=== PATIENT | female | born 1940 | race Caucasian/White ===

== ENCOUNTER → 2017-10-10 10:03 | Outpatient (CLI) | payer MEDICARE, OTHER, SELFPAY ==
--- NOTE | 2017-10-10 11:30 | FLU_PTH ---
PATIENT: PHANI PIERRE LOC: [facility] U#:[id number] AGE/SX: 84/F ROOM: RE10/10/[address]: Dr. Felice Cuevas MD : 1940 BED: DIS: SPEC #: [id number] RECD: 10/11/17 09:29 STATUS: VAIBHAV GISELLA #: [id number] LOBO: 10/10/17 11:[address]: Felice Cuevas DEPT: CYTOLOGY RECD BY: Lazara Sauceda Tissues: Urine Procedures: Pap Stain (control) Special Stain Group II Cytospin Fluid HEADER OPERATION: Not noted PRE-OP DIAGNOSIS: Hematuria TISSUE SUBMITTED: Urine for cytology DIAGNOSIS CYTOLOGY Urine for cytology (cytospin): Negative for malignant cells. SJ:michelle 10/12/17 CYTOLOGY STUDY Slides are reviewed. The specimen consists of benign squamous cells, urothelial cells, inflammatory cells and organisms consistent with bacteria. CYTOLOGY GROSS Received is 65 ml of clear yellow fluid labeled with the patient's name and and designated per the requisition as urine. Submitted for cytology preparation. / RB:marco 10/11/17 TC:5 [facility]: [id number]
== END ==
PROVIDERS: Family Provider Family Medicine; PCP Family Medicine; Visit Provider Urology
DX: R31.9 Hematuria, unspecified (principal)
CPT/HCPCS: 88108; 88305; 88313

== ENCOUNTER → 2017-10-19 13:57 | Outpatient (CLI) | payer MEDICARE, OTHER, SELFPAY ==
--- NOTE | 2017-10-19 14:00 | CT_ITS ---
STUDY: CT ABDOMEN AND PELVIS WITH CONTRAST REASON FOR EXAM: Female, 76 years old. HEMATURIA, LT FLANK PAIN/HX KS, OVARIAN CYST RADIATION DOSAGE (If Supplied By Facility): CTDIvol = ( 8.90 ) mGy, DLP = ( 629.36 ) mGycm TECHNIQUE: Transaxial images were obtained from the dome of the diaphragm to the symphysis pubis without oral contrast. 100 ml of Isovue 300 contrast was administered. Sagittal and coronal images were reconstructed. Individualized dose optimization techniques were used for this CT. COMPARISON: None. FINDINGS: There are atherosclerotic calcifications of visualized coronary arteries. The visualized portions of the heart are within normal limits. Normal liver. Normal gallbladder and extrahepatic biliary system. Normal spleen. Normal pancreas. Normal bilateral adrenal glands. There are bilateral peripelvic cysts. Non obstructive 4.7 mm inferior left renal parenchymal stones. Mild left hydronephrosis. Obstructing stone is not visualized. There is diffuse enhancement of the left proximal ureter. Solid area of enhancement visualized in the proximal left ureter. This area measures 4.3 mm. This may represent a partially obstructing lesion. Transitional cell carcinoma needs to be excluded. Normal visualized stomach. Normal small intestine. Normal colon. The appendix is visualized and appears normal. There are calcifications of the abdominal aorta and vascular structures. This is consistent for atherosclerotic disease. There is no abdominal aortic aneurysm. Normal inferior vena cava. Subcentimeter mesenteric lymph nodes. Normal urinary bladder. The uterus is lobulated in contour. There are multiple partially calcified masses in the uterus. This is consistent for a fibroid/ myomatous uterus. Normal abdominal wall. There are degenerative changes of the osseous structures. Degenerative findings of the symphysis pubis. CT/Abdomen/Pelvis W IV Cont ONLY IMPRESSION: Mild left hydronephrosis. Obstructing stone is not visualized. There is diffuse enhancement of the left proximal ureter. Solid area of enhancement visualized in the proximal left ureter. This area measures 4.3 mm. This may represent a partially obstructing lesion. Transitional cell carcinoma needs to be excluded. Non obstructive 4.7 mm inferior left renal parenchymal stones. Other findings as above. Electronically Signed: Main Hou MD at 20:14 EDT , Service support ,
[2017-10-19 14:11] LABS: CREATININE FINGERSTICK < 0.6 mg/dL (0.55-1.02); EGFR FINGERSTICK > 60.0000 mL/min (>60)
== END ==
PROVIDERS: PCP Family Medicine; Visit Provider Urology
DX: R31.9 Hematuria, unspecified (principal)
CPT/HCPCS: 74177; Q9967

== ENCOUNTER 2017-11-02 13:01 | Day surgery (SDC) | payer MEDICARE, OTHER, SELFPAY ==
[2017-11-02 13:25] VITALS: BP 159/66; PULSE 63; RESP 14; TEMP 36.2; O2SAT 100; BMI 22.0
--- NOTE | 2017-11-02 14:07 | PCM.DC.URO ---
Discharge Diet: Light diet - advance as tolerated Discharge Activity: May not drive while taking narcotic pain medications. Return to work on:: 11/07/17 Call your doctor if you observe: Fever of 101 or Higher, Uncontrolled pain Suture Line Care: Avoid Pulling/Pushing, Avoid Pinching/Bending Allergies/Adverse Reactions: Allergies Penicillins [PCN] Allergy (Verified 10/27/17 10:06) Rash atorvastatin [From Lipitor] Adverse Reaction (Verified 10/27/17 10:07) Other LEG WEAKNESS clindamycin Adverse Reaction (Verified 10/27/17 10:07) Diarrhea ibuprofen Adverse Reaction (Verified 10/27/17 10:07) Diarrhea Medications to take at Discharge Aspirin E.C. [Ecotrin] 81 mg PO DAILY@0800 10/27/17 Atenolol [Tenormin (Beta Renetta)] 50 mg PO DAILY 10/27/17 Pravastatin [Pravachol] 40 mg PO QHS 10/27/17 Ciprofloxacin [Cipro] 500 mg PO BID #6 tab 11/02/17 Hydrocodone Bitart/Apap 5-325 [[place] 5MG-325MG] 1 tab PO Q4H PRN PRN 5 Days #14 tab 11/02/17 The following prescriptions were given: Hydrocodone Bitart/Apap 5-325 [[place] 5MG-325MG] 1 tab PO Q4H PRN PRN 5 Days #14 tab PRN Reason: Pain Ciprofloxacin [Cipro] 500 mg PO BID #6 tab Primary Care Physician: Pérez Eddy MD [Primary Care Provider] - Please Follow Up With: Felice Cuevas MD When: TuesdayNovember 14 at 1:30 pm
[2017-11-02] MEDS: Cefazolin 2 GM in 0.9% Normal Saline 100 ML IV (14:13)
--- NOTE | 2017-11-02 15:02 | PCM.OPRPT ---
Report of Operation Date of Procedure: 11/02/17 Pre-Operative Diagnosis: preoperative diagnosis is gross hematuria, question of a thickened Left ureter and mass in the ureter on CAT scan, lower pole left kidney stone. Post-Operative Diagnosis: Same Surgery/Procedure Performed:: Cystoscopy, left retrograde pyelogram, left ureteroscopy. Description of Surgical Findings:: 76-year-old female who had an episode of gross hematuria cystoscopy in the office was negative, we did a CAT scan which demonstrated some thickening in the ureter inflammation in the left kidney small stone in the lower pole of the left kidney today we plan to do ureteroscopy possible laser the stone possible stent placement possible biopsy if there is any abnormalities. Patient was taken back to the operating room at the smooth induction of general anesthesia she was placed in dorsal lithotomy position. The urethra and vaginal area were prepped and draped in usual sterile fashion on bimanual exam I could not appreciate any masses or abnormalities, and cystoscopy showed a normal bladder with no tumors or stones right and left ureteral orifice normal position, I then cannulated the left ureteral orifice performed a left retrograde pyelogram which is normal, I then placed 2 Glidewire of the left ureter and went up the left ureter with the flexible ureteroscope the entire length of the ureter was clean of any stones tumors or abnormalities the UPJ was normal I inspected the kidney upper pole midpole and lower pole the kidney on CAT scan there was a possible stone in the lower pole the kidney but it was too difficult to reach with ureteroscopy and was in the calyx that was unreachable and therefore felt like treatment the stone was not necessary in a very lower pole stone. I worked down the ureter with the ureteroscope and no tumors or stones or adenopathies were seen along the course of the ureter came out of the ureter and then decided not to leave a stent drain the kidney and the patient's anesthetic is being reversed and I will talk to her . Type of Anesthesia:: General Drains: none - Admit VTE Documentation VTE Present on Admission: No VTE Mechan Device Prophylaxis: SCD's VTE Pharm Prophylaxis ordered?: No Reason prophylaxis not ordered:: Treatment Not Indicated
[2017-11-02 15:07] VITALS: BP 131/73; BP 159/66; PULSE 71; RESP 16; TEMP 36.4; O2SAT 94
[2017-11-02 15:15] VITALS: BP 148/68; BP 159/66; PULSE 72; RESP 16; O2SAT 100
[2017-11-02 15:30] VITALS: BP 149/68; BP 159/66; PULSE 66; RESP 16; O2SAT 93
[2017-11-02 15:35] VITALS: BP 152/69; BP 159/66; PULSE 74; RESP 16; TEMP 36.1; O2SAT 93
[2017-11-02 16:14] VITALS: BP 159/66
== END 2017-11-02 16:20 | disposition home or self-care (01) ==
LOC: SDC 13:02 → AC 13:03
PROVIDERS: PCP Family Medicine; Visit Provider Urology
PROC: (CPT 52332; principal; 2017-11-02 14:55)
DX: N20.2 Calculus of kidney with calculus of ureter (principal); R31.0 Gross hematuria; E78.00 Pure hypercholesterolemia, unspecified; I10 Essential (primary) hypertension; Z79.899 Other long term (current) drug therapy; Z79.82 Long term (current) use of aspirin
CPT/HCPCS: 00910; 52005; 76000; C1769; J2405

== ENCOUNTER → 2017-11-21 16:04 | Outpatient (CLI) | payer MEDICARE, OTHER, SELFPAY ==
--- NOTE | 2017-11-21 | EMB_PTH ---
PATIENT: PHANI PIERRE LOC: [facility] U#:[id number] AGE/SX: 84/F ROOM: RE11/21/[address]: Dr. Sathish Chan MD : 1940 BED: DIS: SPEC #: [id number] RECD: 11/21/17 17:49 STATUS: VAIBHAV VUBhavna #: [id number] LOBO: 11/21/17 00:[address]: Sathish Chan DEPT: SURGICAL PATHOLOGY RECD BY: Tripp Osuna Tissues: A - Endometrium, NOS B - Endocervical Procedures: Surgery Specimen Level IV HEADER OPERATION: Endometrial biopsy PRE-OP DIAGNOSIS: Postmenopausal bleeding TISSUE SUBMITTED: A - Endometrial biopsy, B - ECC MICROSCOPIC DIAGNOSIS A. Endometrial biopsy: Scant strips of benign endometrial epithelium, consistent with atrophic endometrium. Fragments of benign endocervical epithelium and mucous. B. ECC: Fragments of benign endocervical epithelium, blood and mucous. SJ:michelle 6/13/18 MICROSCOPIC DESCRIPTION Slides are reviewed. GROSS DESCRIPTION A - Received in fixative is one container labeled with the patient's name and designated EM biopsy. The specimen consists of multiple irregular fragments of barrett mucoid tissue that in aggregate measure 2.5 x 0.2 x 0.1 cm. The specimen is totally submitted in one cassette. B - Received in fixative is one container labeled with the patient's name and designated ECC. The specimen consists of multiple fragments of hemorrhagic mucoid tissue that in aggregate measure 1 x 1 x 0.2 cm. The specimen is totally submitted in one cassette. / PATRIZIA:michelle 11/22/17 TC:4 CPT: 33970 x2
--- NOTE | 2017-11-21 16:04 | DT_ITS ---
This patient was seen during an EMR downtime November 14, 2017 - November 21, 2017. This patient may have a combination of paper and electronic documentation or all paper documentation. All documentation is viewable within the e-chart portion of [employer] for each patient visit.
[2017-11-26 14:23] LABS: Cancer Antigen 125 11.6 U/mL (0.0-38.1)
== END ==
PROVIDERS: Visit Provider Obstetrics & Gynecology
DX: N95.0 Postmenopausal bleeding (principal); Z12.4 Encounter for screening for malignant neoplasm of cervix
CPT/HCPCS: 36415; 86304; 88175; 88305; G0145

== ENCOUNTER 2018-01-02 07:20 | Day surgery (SDC) | payer MEDICARE, OTHER, SELFPAY ==
[2017-12-28 15:09] LABS: Hematocrit 39.3 % (37-47); Hemoglobin 12.9 g/dl (12.0-15.0); Mean Corp Hgb Conc 32.8 g/gl (32-36); Mean Corpuscular Hgb 28.9 pg (27.0-32.0); Mean Corpuscular Volume 88.1 fL (81-99); Mean Platelet Vol. 10.9 fl (6.2-12.0); Platelet Count 339 K/mm3 (150-450); RBC Distribution Width CV 12.6 % (11.6-14.6); RBC Distribution Width SD 40.2 fl (35.1-43.9); Red Blood Count 4.46 M/mm3 (4.2-5.4); White Blood Count 10.3 K/mm3 (4.4-11.0)
[2017-12-28 15:11] LABS: Scan Indicated on CBC? Y/N NO
[2017-12-28 15:24] LABS: Partial Thromboplast Time 27.6 Seconds (24.1-36.2); Prothrombin Time (Protime)PT. 13.4 SECONDS (11.7-14.9)
[2017-12-28 15:42] LABS: ALB/GLOB Ratio 0.9 RATIO (0.9-2.4); AST(SGOT) 17 U/L (15-37); Alanine Aminotransfer ALT/SGPT 24 U/L (13-56); Albumin, Serum 3.5 g/dL (3.2-5.0); Alkaline Phosphatase 88 U/L (45-117); Anion Gap 6 (5-15); BUN 15 mg/dL (7-18); BUN/Creat Ratio 20.2 RATIO (10-20); Calcium,Total 9.2 mg/dL (8.5-10.1); Chloride 103 mmol/L (98-107); Creatinine, Serum 0.74 mg/dL (0.55-1.02); EST Glomerular Filtration Rate 81 mL/min (>60); Est Glom Filt Rate - Afr Amer 98 mL/min (>60); Globulin 3.9 g/dL (2.2-4.2); Glucose 114 mg/dL (74-106); Potassium 3.7 mmol/L (3.5-5.1); Protein, Total 7.4 g/dL (6.4-8.2); Sodium Level 139 mmol/L (136-145)
--- NOTE | 2017-12-30 13:14 | EKG12_ITS ---
Test Reason : PRE-OP Blood Pressure : / mmHG Vent. Rate : 065 BPM Atrial Rate : 065 BPM P-R Int : 138 ms QRS Dur : 080 ms QT Int : 370 ms P-R-T Axes : 051 -06 033 degrees QTc Int : 384 ms Normal sinus rhythm Normal ECG When compared with ECG of 26-JUL-2003 10:39, Questionable change in QRS axis Confirmed by JEFFRY CAREY ([id number]), assignment editor ALEYDA SARABIA ([id number]) on 01/03/2018 2:05:52 PM Referred By: Sathish Chan Confirmed By:JEFFRY CAREY
--- NOTE | 2018-01-01 19:55 | HP.PCM_ITS ---
History and Physical Date of Admission: 01/02/18 Surgical History and Physical Dian Domínguez, a 77 year old female 2 0 0 0 2, presents for D and C , H/S, Dx L/S, Bilateral salpingectomy, left oophrectomy on January 02, 2018 at 9: 00. -- COATER HAND Bleeding, Left Ovarian Cyst, Thickened EM -- Pt is a 76 yo female , G-2 P-2 with bleeding after IC which began several months ago. It occurs after IC. It is located in the vagina. Dian characterizes the quality bloody urine for a few days after IC. Severity is mild and not improving; associated signs and symptoms are no other symptoms. Additional comments are: urology w/u negative by Dr. Cuevas; pelvic u/s showed 5 cm left simple cyst and 1 cm EM stripe. MEDICATIONS HISTORY: Patient is also takin. atenolol 50 mg tablet, 1 PO QD 2. pravastatin 40 mg tablet, 1 PO QD 3. PreserVision AREDS 14,320 unit-226 mg-200 unit capsule, 1 PO QD ALLERGIES: Penicillins, Rash, Clindamycin, Intolerance-diarrhea, Lipitor, Muscle weakness, Ibuprofen and Generalized rash Illnesses - hypertension, high cholesterol Accidents - None Review of Systems: GENERAL - Denies fever, or chills SKIN - Denies skin changes EYES - Denies visual changes EARS - Denies difficulty hearing NOSE - Denies nasal congestion or bleeding MOUTH - Denies sore throat or difficulty swallowing NECK - Denies pain or swelling RESPIRATORY - Denies shortness of breath or wheezing CARDIOVASCULAR - Denies palpitations or chest pain GASTROINTESTINAL - Denies nausea, vomiting, diarrhea, constipation GENITOURINARY - Denies dysuria, frequency of urination, incontinence of urine MUSCULOSKELETAL - Denies joint or muscle pain NEUROLOGICAL - Denies localized numbness or weakness PSYCHIATRIC - Denies depression or anxiety ENDOCRINE - Denies heat or cold intolerance, weight loss or gain HEMATO-IMMUNOLOGIC - Denies excesive bleeding with cuts SOCIAL HISTORY: Alcohol Use - denies use Smoking - Never Illicit Drug Use - denies use of street drugs Spouse-Sig Other Name - Kenny FAMILY HISTORY: nc MENSTRUAL HISTORY: menopausal PAST PREGNANCIES: Total Pregnancies - 2; Full Term Pregnancies - 2; Premature - 0; Abortions, Induced - 0; Abortions, Spontaneous - 0; Ectopics - 0; Multiple Births - 0; Living Children - 2 SURGICAL HISTORY: 1. 11/02/2017 cystoscopy PHYSICAL EXAM BP- 120/60 Sitting, Right arm, regular cuff Weight- 121.81703 lbs Height- 62.00 inch BMI:22.21 CONSTITUTIONAL - NAD, well nourished, and well developed SKIN - No rash, lesions, or ulcers HEENT - Normocephalic, PERRLA, EOMI NECK - No nodes, no nuchal rigidity and thyroid normal size and texture LYMPH NODES - Palpation of lymph nodes in neck and groins within normal limits LUNGS - CTA x2 without wheezes, crackles or rales CARDIAC - Regular rate and rhythm without rubs, murmurs, or gallops ABDOMEN - Without hepatosplenomegaly, distention, masses, rebound, or guarding; normal bowel sounds; no hernias EXTREMITIES - No edema or calf tenderness NEUROLOGICAL - Cranial nerves II-XII grossly intact PSYCHIATRIC - A and O to time, place, person, mood and affect DETAILED PELVIC EXAM External Genitial Vagina - non-tender without lesions Urethra/Urethral Meatus - non-tender Bladder - non-tender Vagina - vaginal cool are pink and moist without loss of rugae and no evidence of atropy Cervix - without cervical motion tenderness and has normal size and features without evident lesions and cervix with easy bleeding with brush Uterus - multiparous size 6 cm & wt 75-125 g Adnexa - clear without massess or tenderness ASSESSMENT/PLAN: 1. Nonspecific Abnormal Findings On Radiological And Other Examination Of Genitourinary Organs, Ovarian Cyst Nos and Postmenopausal Bleeding EMBx and CA-125 OK but endometrial stripe thickened. Need to proceed with D and C, H/S. Given this will also perform LST and right salpingectomy. Discussed RBAs and all questions answered.
[2018-01-02] VITALS (7 sets, daily range): BP systolic 136–151; BP diastolic 48–68; PULSE 60–66; RESP 14–16; TEMP 36.1–36.5; O2SAT 93–99; BMI 22.1
--- NOTE | 2018-01-02 09:00 | ECC_PTH ---
PATIENT: PHANI PIERRE LOC: [facility] [place] U#:[id number] AGE/SX: 77/F ROOM: RE01/02/[address]: Dr. Sathish Chan MD : 1940 BED: DIS: 01/02/2018 SPEC #: [id number] RECD: 01/02/18 11:50 STATUS: VAIBHAV GISELLA #: [id number] LOBO: 01/02/18 09:[address]: Sathish Chan DEPT: SURGICAL PATHOLOGY RECD BY: Lazara Sauceda ENTERED: 01/02/18 13:07 SP TYPE: ECC OTHR DR: MD Dr. Pérez Santos MD Tissues: A - Endocervical B - Endometrium, NOS C - Left ovary D - Right ovary Procedures: Surgery Specimen Level IV Surgery Specimen Level V HEADER OPERATION: Hysteroscopy, dilation and curettage, laparoscopy, bilateral salpingo-oophorectomy PRE-OP DIAGNOSIS: Left ovarian cyst, postmenopausal bleeding TISSUE SUBMITTED: A ? Endocervical curettings, B ? Endometrial curettings, C ? Left tube and ovary, D ? Right tube and ovary MICROSCOPIC DIAGNOSIS A. Endocervical curettings: Desquamated benign ecto- and endocervical epithelial cells and mucous, negative for dysplasia. B. Endometrial curettings: Strips and superficial fragments of benign endometrial tissue consistent with atrophic endometrium. Fragments of benign endometrial polyp with simple cystic hyperplasia without atypia. C. Left fallopian tube and ovary, salpingo-oophorectomy: Simple serous cyst adenoma (7 cm in greatest dimension). Mesothelial inclusion cysts. D. Right fallopian tube and ovary, salpingo-oophorectomy: Simple serous cyst adenoma (1 cm in greatest dimension). Mesothelial inclusion cysts. SJ:michelle 01/03/18 MICROSCOPIC DESCRIPTION Slides are reviewed. GROSS DESCRIPTION A - Received in fixative is one container labeled with the patient's name and designated endocervical curettings. The specimen consists of multiple fragments of barrett mucoid tissue that in aggregate measure 0.5 x 0.5 x 0.1 cm. The specimen is totally submitted in one cassette. B - Received in fixative is one container labeled with the patient's name and designated endometrial curettings. The specimen consists of multiple fragments of hemorrhagic soft tissue that in aggregate measure 2.5 x 1 x 0.1 cm. Also present in the container are two pieces of polypoid tissue measuring 0.5 and 1 cm in greatest dimension. Both pieces are bisected. The entire specimen is submitted in two cassettes as follows: 1 ? hemorrhagic soft tissue, 2 ? polypoid tissue. C - Received in fixative is one container labeled with the patient's name and designated left tube and ovary. The specimen consists of a cystic ovary with overlying fallopian tube. The cystic ovary measures 7 x 7 x 4.5 cm. The outer surface of the ovary is smooth. The ovary weighs 85 gm. The outer surface of the ovary is inked black. The cystic ovary contains clear yellow fluid. The cyst wall is smooth. No papillations are identified. The cyst wall measures up to 0.1 cm in thickness. The fallopian tube measures 5.5 cm in length and up to 0.5 cm in diameter. The fimbrial end is identified. Sections reveal unremarkable cut surfaces. No tubo-ovarian adhesions are identified. Holistic Specialist sections are submitted in three cassettes as follows: 1 & 2 ? ovary, 3 ? fallopian tube. D - Received in fixative is one container labeled with the patient's name and designated right tube and ovary. The specimen consists of a fallopian tube and adjacent ovary and detached cyst. The fallopian tube measures 5 cm in length and up to 0.5 cm in diameter. The fimbrial end is identified. Tubo-ovarian adhesions are not seen. The ovary is partially disrupted and measures 2.5 x 1 x 1 cm. Sections reveal two cysts filled with clear fluid. The detached cyst measures 1 x 1 x 0.8 cm. It is filled with clear fluid. Holistic Specialist sections are submitted in three cassettes as follows: 1 ? fallopian tube, 2 ? ovary, 3 ? ovary and detached cyst. The ovary and detached cyst are submitted in entirety. / PATRIZIA:michelle 01/02/18 TC:1 CPT: 08470 x2, 30936 x2
[2018-01-02] MEDS: Ropivacaine 0.5% 30 ML Vial (10:41)
--- NOTE | 2018-01-02 16:52 | PCM.OP.BLANK ---
Operative Report Date of Procedure: 01/02/18 Surgeon: Sathish Chan MD, FACOG Senior Validation Engineer: BRENNON Trimble Anesthesia: Karla Flaherty CRNA Type of anesthesia: General Endotracheal Procedure: Diagnostic Hysteroscopy, fractional dilation and Curettage, Diagnostic Laparoscopy, Bilateral Salpingo-Oophrectomy Pre-op: Postmenopausal Bleeding, Large Left Ovarian Cyst Postop: Postmenopausal Bleeding, Large Left Ovarian Cyst, Endometrial Polyps Versus Fibroids Findings: 5 cm EM cavity with atrophic endometrium and to 0.5 cm fibroids versus polyps; 7-8 cm simple appearing left ovarian cyst, normal fallopian tubes and right ovary, normal upper abdomen, normal-appearing uterus. Cervix which protruded to within 3 cm of the introitus. LAVH or RAVH would likely be possible. Indication: This is a 77 year old patient who has been having problems with postmenopausal bleeding. Ultrasound also revealed a 7 cm left simple appearing cyst. Endometrial biopsy was benign. Given this was decided to proceed with the above surgery. The patient has been counseled regarding the risk and indications of this procedure including the possibility of bleeding, infection, and injury to surrounding structures such as bowel bladder. All questions were answered. Procedure: Patient taken to the operating room where after induction of general anesthesia the patient was prepped and draped in the usual sterile fashion. Bladder was drained of urine with a catheter. Anterior cervix grasped and cervix was dilated to about 5 mm. Hysteroscope was placed and the above findings were noted. In the course of the procedure approximately 200 cc of glycine distending media was used and virtually all of this was recovered. After the hysteroscopy was complete endocervical curettings were obtained and cervix dilated to about 7-8 mm. Uterus was then gently curetted removing all contents including the 2 masses which were visualized with the hysteroscope. Photographs were taken. Conn cannula was placed and attention was turned toward the laparoscopic portion of the procedure. Approximately 30 cc of half percent ropivacaine was injected subumbilically suprapubically and midway between. A 5 mm bladeless trocar was placed subumbilically and intraperitoneal placement confirmed. After CO2 insufflation was complete, a 5 mm bladeless trocar was introduced suprapubically. The above findings were noted. A 5 mm port was then placed midway between these 2 ports for tubal manipulation. An Enseal device was then used to ligate the infundibulopelvic ligaments in each adnexa. The lower 5 mm port was removed and a 10/12 mm port was placed. An Endo bag was placed in this port after removal of the right tube and ovary. The left adnexa was placed in this bag and after extending the fascia the tube and ovary were brought through the lower port site after removing the trocar. Fascia was then closed with running 0 Vicryl suture and subcutaneous tissue irrigated with saline. 3-0 Vicryl suture was then used in a running fashion to reapproximate subcutaneous tissue. The abdomen was reinsufflated and the peritoneal cavity and upper abdomen were examined and noted to be normal. Laparoscopic instruments with as much CO2 gas as possible were removed and incisions were closed with interrupted and running 4-0 Monocryl suture. Steri-Strips placed across the incisions. Patient tolerated procedure well was taken to recovery room in satisfactory condition sponge instrument and needle counts were all reportedly correct. Estimated blood loss for the case was minimal. Specimens to pathology were endocervical and endometrial curettings and bilateral fallopian tubes and ovaries.
--- NOTE | 2018-01-02 17:11 | PCM.DC.TUB ---
Discharge Diet: No Restrictions Discharge Activity: Return to Normal Activity, May Drive - when you are no longer taking pain/narcotic medicines., May Shower, May Take a Tub Bath May resume sexual activity in: 2 weeks Additional Activity Instructions:: Ambulate often the next week after surgery. Nothing in the vagina for 5 days. Call your doctor if your incision/area has: Continuous Slow Oozing, Sudden Increased Bleeding, Increased Pain/ Swelling, Increased Redness, Foul Smelling Discharge Call your doctor if you observe: Fever of 101 or Higher, Inability to urinate, Inability to have a bowel movement, Using more than one pad per hour Allergies/Adverse Reactions: Allergies bee pollen Allergy (Verified 01/02/18 07:36) Rash Penicillins [PCN] Allergy (Verified 01/02/18 07:36) Rash atorvastatin [From Lipitor] Adverse Reaction (Verified 01/02/18 07:36) Other LEG WEAKNESS clindamycin Adverse Reaction (Verified 01/02/18 07:36) Diarrhea ibuprofen Adverse Reaction (Verified 01/02/18 07:36) Diarrhea Medications to take at Discharge Atenolol [Tenormin (Beta Renetta)] 50 mg PO QHS 10/27/17 Pravastatin [Pravachol] 40 mg PO QHS 10/27/17 RX: Aspirin E.C. [Ecotrin] 81 mg PO DAILY@0800 10/27/17 Cholecalciferol (Vitamin D3) [Vitamin D3] 1,000 unit PO BID 12/26/17 Vit C/E/Zn/Coppr/Lutein/Zeaxan [Preservision Areds 2 Softgel] 1 each PO DAILY 12/26/17 Primary Care Physician: Pérez Eddy MD [Primary Care Provider] - Test Results: Test results from this visit will be discussed in further detail at your follow-up appointment, if applicable. Please Follow Up With: Sathish Chan MD - [phone] When: 2-4 weeks
== END 2018-01-02 14:50 | disposition home or self-care (01) ==
LOC: SDC 07:21 → AC 07:23
PROVIDERS: PCP Family Medicine; Visit Provider Obstetrics & Gynecology
PROC: 0UDB8ZZ Extraction of Endometrium, Via Natural or Artificial Opening Endoscopic (ICD-10-PCS; CPT 58558; principal; 2018-01-02 08:45)
DX: D27.1 Benign neoplasm of left ovary (principal); D27.0 Benign neoplasm of right ovary; N85.01 Benign endometrial hyperplasia; E78.00 Pure hypercholesterolemia, unspecified; I10 Essential (primary) hypertension; Z79.82 Long term (current) use of aspirin; Z79.899 Other long term (current) drug therapy
CPT/HCPCS: 00840; 58558; 58661; 36415; 80053; 85027; 85610; 85730; 86850; 86900; 88305; 88307; 93005; J7120; C1760; J2405

== ENCOUNTER → 2018-05-15 13:30 | Outpatient (CLI) | payer MEDICARE, OTHER, SELFPAY ==
[2018-01-02 07:37] VITALS: BMI 22.1
--- NOTE | 2018-05-15 13:30 | CYSPIN_PTH ---
PATIENT: PHANI PIERRE LOC: [facility] U#:[id number] AGE/SX: 84/F ROOM: RE05/15/[address]: EDDIE Rose : 1940 BED: DIS: SPEC #: [id number] RECD: 05/16/18 08:22 STATUS: VAIBHAV GISELLA #: [id number] LOBO: 05/15/18 13:[address]: Tatiana Moss NP DEPT: CYTOLOGY RECD BY: Tripp Osuna Tissues: Urine Procedures: Pap Stain (control) Special Stain Group II Cytospin Fluid HEADER OPERATION: Not noted PRE-OP DIAGNOSIS: Hematuria TISSUE SUBMITTED: Urine for cytology DIAGNOSIS CYTOLOGY Urine for cytology (cytospin): Atypical urothelial noted. See comment. PATRIZIA:michelle 05/17/18 COMMENT The specimen also shows neutrophils and organisms consistent with bacteria. Differential diagnosis includes infection, calculi or low-grade urothelial neoplasm. Clinical correlation and appropriate follow up are necessary. Please make reference to previous specimen ([id number]) urine for cytology with diagnosis of negative for malignant cells. Case has been reviewed in consultation with Dr. Mak who concurs with the above diagnosis. IDC:AM CYTOLOGY STUDY Slides are reviewed. CYTOLOGY GROSS Received is 50 ml of light yellow clear fluid labeled with the patient's name and and designated per the requisition as urine. Submitted for cytology preparation. 05/16/18 TC:5 CPT: 10691
[2018-05-15 16:44] LABS: Cytology, Body Fluid / CSF SEE PATHOLOGY REPORT
== END ==
PROVIDERS: Referring Provider Nurse Practitioner Adult Health; Visit Provider Nurse Practitioner Adult Health
DX: R31.9 Hematuria, unspecified (principal)
CPT/HCPCS: 88108; 88313

== ENCOUNTER → 2018-05-25 16:37 | Outpatient (CLI) | payer MEDICARE, OTHER, SELFPAY ==
--- NOTE | 2018-05-25 16:41 | CT_ITS ---
STUDY: CT ABDOMEN AND PELVIS WITH AND WITHOUT CONTRAST REASON FOR EXAM: Female, 77 years old. Hematuria. RADIATION DOSAGE (If Supplied By Facility): CTDIvol = ( 10.49 ) mGy, DLP = ( 552.48 ) mGycm TECHNIQUE: Transaxial images were obtained from the dome of the diaphragm to the symphysis pubis without oral contrast. 100 ml of Isovue 300 contrast was administered. Sagittal and coronal images were reconstructed. Individualized dose optimization techniques were used for this CT. COMPARISON: None. FINDINGS: The visualized lung bases are unremarkable. The visualized portions of the heart are within normal limits. Normal liver. Normal gallbladder and extrahepatic biliary system. Normal spleen. Normal pancreas. Normal bilateral adrenal glands. Prominent right renal pelvis with no evidence of underlying nephrolith or ureteral stone. Left renal moderate hydronephrosis with proximal ureteral stone at the UPJ measuring approximately 5 mm is present. Left cortical irregularity consistent with cortical scarring along the posterior medial aspect is present. Normal visualized stomach. Normal small intestine. Normal colon. The appendix is visualized and appears normal. There is diffuse atherosclerotic calcification of the abdominal aorta, without a demonstrated aneurysm. Normal inferior vena cava. Normal retroperitoneum. Normal urinary bladder. There is atrophy of the uterus. Normal abdominal wall. Normal osseous structures. CT/CT Abd/Pelvis W/WO Contrast IMPRESSION: 1. Left UPJ 5 mm stone with likely mild to moderate hydronephrosis with otherwise no evidence of acute abdominal process and senescent changes as above. Cortical scarring within the left posterior renal cortex, clinically correlate. Electronically Signed: Lee Andrews DO at 9:11 EST , Service support ,
[2018-05-25 17:05] LABS: CREATININE FINGERSTICK 0.8 mg/dL (0.55-1.02); EGFR FINGERSTICK > 60.0000 mL/min (>60)
--- OUTSIDE RECORDS SUMMARY | 2018-07-11 14:15 | XMS RPT_ITS ---
:1940 Author Organization [facility] Support Name Relationship Address Phone ELEN ORDOÑEZ Unavailable [address] + [place] [address] R Unavailable Unavailable Unavailable GABBY, MIKE Unavailable [address] + [place] [address] ELEN ORDOÑEZ Unavailable [address] + [place] [address] R Unavailable Unavailable Unavailable GABBY, MIKE Unavailable [address] + [place] [address] KARINGO ELEN Unavailable [address] + [place] [address] R Unavailable Unavailable Unavailable GABBY, MIKE Unavailable [address] + [place] [address] KARINTRELL ELEN Unavailable [address] + [place] [address] R Unavailable Unavailable Unavailable GABBY, MIKE Unavailable [address] + [place] [address] SMITA ELEN Unavailable [address] + [place] [address] R Unavailable Unavailable Unavailable GABBY, MIKE Unavailable [address] + [place] [address] KARINTRELL ELEN Unavailable [address] + [place] [address] R Unavailable Unavailable Unavailable GABBY, MIKE Unavailable [address] + [place] [address] KARINTELOISAKirk ELEN Unavailable [address] + [place] [address] R Unavailable Unavailable Unavailable GABBY, MIKE Unavailable [address] + [place] [address] KARINTWIT ELEN Unavailable [address] + [place] [address] R Unavailable Unavailable Unavailable GLENNA DOMÍNGUEZRY Unavailable [address] + [place] [address] KARINTWIT ELEN Unavailable [address] + [place] [address] R Unavailable Unavailable Unavailable GLENNA DOMÍNGUEZRY Unavailable [address] + [place] [address] HUSTWIT ELEN Unavailable [address] + [place] [address] R Unavailable Unavailable Unavailable GABBY MIKE Unavailable [address] [phone] [place] [address] HUSTWIT ELEN Unavailable [address] + [place] [address] R Unavailable Unavailable Unavailable GLENNA DOMÍNGUEZRY Unavailable [address] [phone] [place] [address] [facility] Un[facility] [address] + [place] [address] R Unavailable Unavailable Unavailable GLENNA DOMÍNGUEZRY Unavailable [address] [phone] [place] [address] Care Team Providers Name Role Phone ALANA LEMONS ([facility]) Attending Unavailable RUTTI, ALANA ([facility]) Referring Unavailable RUTTI, ALANA ([facility]) Referring Unavailable RUTTI, ALANA ([facility]) Referring Unavailable JULIETH EDDY) Referring Unavailable RUTTI, ALANA ([facility]) Referring Unavailable RUTTI, ALANA ([facility]) Referring Unavailable JULIETH EDDY) Attending Unavailable JULIETH EDDY) Attending Unavailable CROW CHANDRA ([facility]) Attending Unavailable JULIETH EDDY) Referring Unavailable JULIETH EDDY) Attending Unavailable JULIETH EDDY) Referring Unavailable JULIETH EDDY) Referring Unavailable Felice Cuevas Attending Unavailable Felice Cuevas Referring Unavailable Pérez Eddy Primary Care Unavailable Mason, Chino Attending Unavailable Mason, Chino Referring Unavailable Bursley, Pérez Primary Care Unavailable Mason, Chino Attending Unavailable Mason, Chino Referring Unavailable Bursley, Pérez Primary Care Unavailable Mason, Chino Attending Unavailable Mason, Chino Referring Unavailable Bursely, Pérez Primary Care Unavailable Bursley, Pérez Attending Unavailable Bursley, Pérez Referring Unavailable Bursley, Pérez Primary Care Unavailable AbhiBrayden ochoaril Attending Unavailable Mason, Chino Referring Unavailable Mason, Chino Attending Unavailable Mason, Chino Referring Unavailable Bursely, Pérez Primary Care Unavailable Brian Marvin Attending Unavailable Rocio, Brian Attending Unavailable Brian Marvin Referring Unavailable Bursely, Pérez Primary Care Unavailable Javy Carey Attending Unavailable Rocio, Brian Referring Unavailable Tatiana Moss Attending Unavailable Tatiana Moss Referring Unavailable Mason, Chino Attending Unavailable Mason, Chino Referring Unavailable Bursley, Pérez Primary Care Unavailable PROBLEMS PROBLEMS DATE TYPE CONDITION / CODE ATTENDING STATUS SOURCE 06/21/2018 Unknown Z01.810 - Encounter Marcial Moe Active [place] for preprocedural [facility] examination / Repository Z01.810(ICD-10) 05/29/2018 Unknown N20.0 - Calculus of Felice Cuevas Active [place] [facility] / [facility] N20.0(ICD-10) Hospital Repository 09/06/2017 Active Mixed hyperlipidemia Active [facility] / E78.2(ICD-10) Clinic Main [place] Repository 06/05/2015 Active Essential (primary) NA Active [facility] hypertension / Clinic Main I10(ICD-10) [place] Repository 07/06/2012 Active Vitamin D deficiency, NA Active [facility] unspecified / Clinic Main E55.9(ICD-10) [place] Repository 03/16/2018 Active Encounter for general Active [facility] adult medical [facility] Main examination without [place] abnormal findings / Repository Z00.00(ICD-10) 02/14/2018 Unknown I10 - Essential Javy Carey Active [place] (primary) Community hypertension / Hospital I10(ICD-10) Repository 12/08/2017 Unknown N95.0 - Brian Marvin Active [facility] Postmenopausal Community bleeding / Hospital N95.0(ICD-10) Repository 11/02/2017 Unknown R93.41 - Abnormal Mason, Felice Active [place] radiologic findings [facility] on diagnostic imaging Hospital of renal pelvis, Repository ureter, or bladder / R93.41(ICD-10) 10/19/2017 Unknown R31.9 - Hematuria, Mason, Felice Active [place] unspecified / [facility] R31.9(ICD-10) Hospital Repository 08/25/2017 Active Abnormal findings on NA Active [facility] diagnostic imaging of Clinic Main other abdominal [place] regions, including Repository retroperitoneum / R93.5(ICD-10) 08/25/2017 Active Unspecified condition NA Active [facility] associated with Clinic Main female genital organs [place] and menstrual cycle / Repository N94.9(ICD-10) 08/19/2017 Active Hyperlipidemia, NA Active [facility] unspecified / Clinic Main E78.5(ICD-10) [place] Repository 08/19/2017 Active Other shelter NA Active [facility] (current) drug Clinic Main therapy / [place] Z79.899(ICD-10) Repository 08/16/2017 Active Encounter for NA Active [facility] screening for other Clinic Main disorder / [place] Z13.89(ICD-10) Repository 08/08/2017 Active Gross hematuria / NA Active [facility] R31.0(ICD-10) Clinic Main [place] Repository 08/08/2017 Active Unknown / ALANA LEMONS Active [facility] 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) Clinic Main [place] Repository PROCEDURES PROCEDURES No Procedure Records FoundRESULTS RESULTS OPERATIVE REPORT Observed: 06/23/2018 Status: F Source: [place] 3:16 PM [facility] Medical Records Department [address] [place] [address] Operative Report 06/23/18 1514 MR#: [id number] Acct: [id number] Name: DIAN DOMÍNGUEZ V Rep #: [id number] : 1940 77 From: Felice Cuevas MD PCP: Pérez Eddy MD Status: REG [facility] [place] Location: [place] [address] Report of Operation Date of Procedure: 06/23/18 Pre-Operative Diagnosis: Left renal calculi Post-Operative Diagnosis: The same Surgery/Procedure Performed:: Left extracorporeal shockwave lithotripsy Description of Surgical Findings:: 77-year-old female who was found to have a 8 mm stone in the left UPJ area in the kidney presents to the hospital for shockwave lithotripsy. She was taken back to the operating room after smooth induction of general anesthesia she was placed supine on the lithotripter table we then localize the stone in the F2 focal point of the lithotripter machine and delivered a total of 3000 shockwaves to the stone at a rate of 60-90 shocks per minute. Power range up to 6-7 kV. At the end of the treatment the stone had broken up really well no visible fragments were seen on x-ray decided not to leave a stent and the patient says anesthesia and the patient anesthesia is currently being reversed she will follow-up in a few weeks with a KUB. Type of Anesthesia:: General - Admit VTE Documentation VTE Present on Admission: No VTE Mechan Device Prophylaxis: SCD's 06/23/18 1516 <Electronically signed by Felice Cuevas MD> Date Felice Cuevas MD CC: Pérez Eddy MD; Felice Cuevas MD Signed DISCHARGE INSTRUCTION Observed: 06/23/2018 Status: F Source: [place] 3:03 PM [facility] Medical Records Department [address] [place] [address] Instructions for Home/Discharge Instructions 06/23/18 1502 MR#: [id number] Acct: [id number] Name: DIAN DOMÍNGUEZ V Rep #: [id number] : 1940 77 From: Felice Cuevas MD PCP: Pérez Eddy MD Status: REG [facility] Discharge Diet: Light diet - advance as tolerated Discharge Activity: Return to Normal Activity Instructions: Shock Wave Lithotripsy Allergies/Adverse Reactions: Allergies bee pollen Allergy (Verified 06/19/18 13:11) Rash Penicillins [PCN] Allergy (Verified 06/19/18 13:11) Rash atorvastatin [From Lipitor] Adverse Reaction (Verified 06/19/18 13:11) Other LEG WEAKNESS clindamycin Adverse Reaction (Verified 06/19/18 13:11) Diarrhea ibuprofen Adverse Reaction (Verified 06/19/18 13:11) Diarrhea Medications to take at Discharge Aspirin E.C. [Ecotrin] 81 mg PO DAILY@0800 10/27/17 Atenolol [Tenormin (Beta Renetta)] 50 mg PO QHS 10/27/17 Pravastatin [Pravachol] 40 mg PO QHS 10/27/17 Cholecalciferol (Vitamin D3) [Vitamin D3] 1,000 unit PO BID 12/26/17 Vit C/E/Zn/Coppr/Lutein/Zeaxan [Preservision Areds 2 Softgel] 1 each PO DAILY 12/26/17 Primary Care Physician: Pérez Eddy MD [Primary Care Provider] - Test Results: Test results from this visit will be discussed in further detail at your follow-up appointment, if applicable. Please Follow Up With: Felice Cuevas MD When: in 2 weeks, please call to make an appointment. 06/23/18 1503 <Electronically signed by Felice Cuevas MD> Date Felice Cuevas MD CC: Pérez Eddy MD Signed ABDOMEN SINGLE VIEW Observed: 06/23/2018 Status: F Source: [place] 12:41 PM [facility] Imaging Services [address] [place] [address] Abdomen Single View MR#: [id number] Acct: [id number] Name: DIAN DOMÍNGUEZ V Rep #: [id number] : 1940 F 77 From: Justin Moody DO PCP: Pérez Eddy MD Status: REG [facility] Study: Abdomen Single View Date of Exam: 06/23/18 Exam# [id number] Ordering Dr: Felice Cuevas MD STUDY: X-RAY - ABDOMEN/PELVIS REASON FOR EXAM: Female, 77 years old. History of kidney stone. Preprocedural imaging TECHNIQUE: Two AP supine views of the abdomen and pelvis. COMPARISON: 05/29/2018 FINDINGS: Normal visualized lung bases. There is an unremarkable bowel gas pattern. There is no demonstrated free abdominal air. The visualized liver, spleen and kidneys are grossly normal in size and morphology. Stable appearance of stone in the left lower pole renal shadow measuring 6.4 mm. Normal soft tissue structures. There are diffuse degenerative changes of the visualized lumbar spine. RAD/Abdomen Single View IMPRESSION: Stable left lower pole nephrolith. No acute findings Electronically Signed: Justin Moody DO at 13:33 EST Tel , Service support , CC: Pérez Eddy MD; Felice Cuevas MD Intelligence Senior Sergeant: Signed SCREENING MAMM (CAD), Observed: 06/19/2018 Status: F Source: [place] BIL 2:36 PM [facility] Imaging Services [address] [place] [address] SCREENING MAMM (CAD), BILAT MR#: [id number] Acct: [id number] Name: DIAN DOMÍNGUEZ V Rep #: [id number] : 1940 F 77 From: Ced Wallace MD PCP: Pérez Eddy MD Status: REG CLI Study: SCREENING MAMM (CAD), BILAT Date of Exam: 06/19/18 Exam# [id number] Ordering Dr: Pérez Eddy MD MAMMOGRAPHY - BILATERAL SCREENING REASON FOR EXAM: Female, 77 years old. Routine annual screening examination. PERTINENT HISTORY: Non-contributory. TECHNIQUE: Digital bilateral breast edie (3D mammographic acquisition) in the CC and MLO projections. 2-D mediolateral oblique (MLO) and craniocaudad (CC) views of both breasts were obtained. CAD: Full Field Digital Mammography with Computer Added Detection was performed. COMPARISON: Comparison is made with prior study dated April 05, 2017 and March 09, 2016. FINDINGS: Breast Composition: There are scattered areas of fibroglandular density. There are no dominant masses or suspicious calcifications. Stable small bilateral axillary lymph nodes. No other significant abnormalities are identified. There has been no significant change since the prior study. BI/SCREENING MAMM (CAD), BILAT IMPRESSION: Stable bilateral screening mammogram. Yearly follow-up mammogram recommended. (A) ASSESSMENT CATEGORY: BIRADS Category 2: Benign. A letter regarding these results will be sent to the patient by the facility within 30 days. Approximately 10% of breast cancers are not detected by mammography. A normal mammogram should not delay biopsy of a clinically suspicious abnormality. [id number] Electronically Signed: Ced Wallace MD at 14:12 EST Tel [phone], Service support , CC: Pérez Eddy MD Intelligence Senior Sergeant: Signed 12 LEAD ELECTROCARDIOGRAM Observed: 06/02/2018 Status: F Source: [place] 12:00 PM [facility] Cardiovascular Services [address] [place] [address] 12 Lead EKG 06/01/18 1331 MR#: [id number] Acct: [id number] Name: DIAN DOMÍNGUEZ V Rep #: [id number] : 1940 77 From: Marcial Moe MD Attending Dr: Mason BINGHAM,Felice Israel Status: PRE [facility] Ordering Dr: Felice Cuevas MD Date: 06/01/18 Location: [facility] Sex: F C Admitted: Test Reason : PRE OP Blood Pressure : / mmHG Vent. Rate : 074 BPM Atrial Rate : 074 BPM P-R Int : 108 ms QRS Dur : 078 ms QT Int : 358 ms P-R-T Axes : 031 -01 015 degrees QTc Int : 397 ms Sinus rhythm with short KS Otherwise normal ECG Confirmed by MARCIAL MOE MD ([id number]), clinical editor ALEYDA SARABIA ([id number]) on 06/02/2018 12:00:28 PM Referred By: Felice Cuevas Confirmed By:MARCIAL MOE MD 06/02/18 1200 Date Marcial Moe MD CC: Pérez Eddy MD; Felice Cuevas MD Signed ABDOMEN SINGLE VIEW Observed: 05/29/2018 Status: F Source: [place] 10:01 AM [facility] Imaging Services [address] [place], [place] [address] [address] Abdomen Single View MR#: [id number] Acct: [id number] Name: DIAN DOMÍNGUEZ V Rep #: [id number] : 1940 F 77 From: Gilberto Roman MD PCP: Pérez Eddy MD Status: REG CLI Study: Abdomen Single View Date of Exam: 05/29/18 Exam# [id number] Ordering Dr: Felice Cuevas MD STUDY: X-RAY - ABDOMEN/PELVIS REASON FOR EXAM: Female, 77 years old. Left-sided kidney stone seen on recent CT. TECHNIQUE: KUB COMPARISON: CT abdomen and pelvis 05/25/2018. FINDINGS: Oval shaped calculus positioned over the left renal inferior pole silhouette. On the prior CT this was positioned just proximal to the ureteropelvic junction and I suspect it has refluxed back into the collecting system. No visible calculi of the right. No other acute intra-abdominal process is evident. RAD/Abdomen Single View IMPRESSION: The left-sided calculus has probably refluxed from the renal pelvis back into the inferior pole calyx. Electronically Signed: Gilberto Roman MD at 18:02 EST Tel , Service support , CC: Pérez Eddy MD; Felice Cuevas MD Intelligence Senior Sergeant: Signed CREATININE FINGERSTICK Collected: 05/25/2018 Status: F Source: [place] 4:49 PM [facility] TYPE CODE TESTS RESULT OUT OF RANGE REFERENCE UNITS LAB L9100.0210 0.55-1.02 mg/dL Normal CREATININE WB 0.8 LAB L9100.0220 >60 mL/min EGFR WB Normal > 60.0000 Performed By: #### L9100.0200 #### [facility] Point of Care [address] [place] [address] CT ABD/PELVIS W/WO Observed: 05/25/2018 Status: F Source: [place] CONTRAST 4:41 PM [facility] Imaging Services [address] [facility] [place] [address] CT Abd/Pelvis W/WO Contrast MR#: [id number] Acct: [id number] Name: DIAN DOMÍNGUEZ V Rep #: [id number] : 1940 F 77 From: Lee Andrews DO PCP: Pérez Eddy MD Status: REG CLI Study: CT Abd/Pelvis W/WO Contrast Date of Exam: 05/25/18 Exam# [id number] Ordering Dr: Felice Cuevas MD STUDY: CT ABDOMEN AND PELVIS WITH AND WITHOUT CONTRAST REASON FOR EXAM: Female, 77 years old. Hematuria. RADIATION DOSAGE (If Supplied By Facility): CTDIvol = ( 10.49 ) mGy, DLP = ( 552.48 ) mGycm TECHNIQUE: Transaxial images were obtained from the dome of the diaphragm to the symphysis pubis without oral contrast. 100 ml of Isovue 300 contrast was administered. Sagittal and coronal images were reconstructed. Individualized dose optimization techniques were used for this CT. COMPARISON: None. FINDINGS: The visualized lung bases are unremarkable. The visualized portions of the heart are within normal limits. Normal liver. Normal gallbladder and extrahepatic biliary system. Normal spleen. Normal pancreas. Normal bilateral adrenal glands. Prominent right renal pelvis with no evidence of underlying nephrolith or ureteral stone. Left renal moderate hydronephrosis with proximal ureteral stone at the UPJ measuring approximately 5 mm is present. Left cortical irregularity consistent with cortical scarring along the posterior medial aspect is present. Normal visualized stomach. Normal small intestine. Normal colon. The appendix is visualized and appears normal. There is diffuse atherosclerotic calcification of the abdominal aorta, without a demonstrated aneurysm. Normal inferior vena cava. Normal retroperitoneum. Normal urinary bladder. There is atrophy of the uterus. Normal abdominal wall. Normal osseous structures. CT/CT Abd/Pelvis W/WO Contrast IMPRESSION: 1. Left UPJ 5 mm stone with likely mild to moderate hydronephrosis with otherwise no evidence of acute abdominal process and senescent changes as above. Cortical scarring within the left posterior renal cortex, clinically correlate. Electronically Signed: Lee Andrews DO at 9:11 EST , Service support , CC: BRIAN MARVIN MD; Pérez Eddy MD; Felice Cuevas MD Intelligence Senior Sergeant: Signed CYTOSPIN ON FLUID Observed: 05/15/2018 Status: F Source: [place] 1:30 PM [facility] Patient: DIAN DOMÍNGUEZ V : 1940 (77/F) Acct Num: [id number] Phys: Ajay CORONADO,Tatiana Unit Num: [id number] Loc: [facility] Specimen: [id number] Received: 05/16/18821 Spec Type: CYSPIN FL TISSUES 1 TISSUES: Urine COMMENT The specimen also shows neutrophils and organisms consistent with bacteria. Differential diagnosis includes infection, calculi or low- grade urothelial neoplasm. Clinical correlation and appropriate follow up are necessary. Please make reference to previous specimen ([id number]) urine for cytology with diagnosis of negative for malignant cells. Case has been reviewed in consultation with Dr. Mak who concurs with the above diagnosis. IDC:AM CYTOLOGY GROSS Received is 50 ml of light yellow clear fluid labeled with the patient's name and and designated per the requisition as urine. Submitted for cytology preparation. / 05/16/18 TC:5 CPT: 36751 CYTOLOGY STUDY Slides are reviewed. DIAGNOSIS CYTOLOGY Urine for cytology (cytospin): Atypical urothelial noted. See comment. SJ:michelle 05/17/18 HEADER OPERATION: Not noted PRE-OP DIAGNOSIS: Hematuria TISSUE SUBMITTED: Urine for cytology Signed Jared Ramos 05/17/18 <signature on file> Performed By: #### PCYSPIN #### [facility] [address] [facility] [place], [place], [address] CYTOLOGY, BODY FLUID / Collected: 05/15/2018 Status: F Source: [facility] 1:30 PM [facility] Order Comment: Specimen Source: URINE TYPE CODE TESTS RESULT OUT OF RANGE REFERENCE UNITS LAB L350.1000 SEE Normal PATHOLOGY CYTOLOGY,BF REPORT /CSF Result Comment: Specimen submitted to Anatomical Pathology Department for testing. Performed By: #### L350.1000 #### [facility] [address] [facility] [place], [place], [address] MEASLES IGG ANTIBODY Collected: 03/16/2018 Status: F Source: [place] 1:12 PM [facility] REPOSITORY TYPE CODE TESTS RESULT OUT OF RANGE REFERENCE UNITS LAB MEASQL Negative Abnormal Measles IgG Positive Alert Ab, Qual Result Comment: Presence of detectable measles virus IgG antibodies. A positive result generally indicates exposure to measles virus or previous vaccination. LAB MEASG AU/mL Measles IgG Antibody >300.0 Result Comment: AU/mL Value interpreted as follows: Negative specimens <25.0 Equivocal specimens 25.0 to 29.9 Positive specimens >29.9 The magnitude of the measured result, above the cutoff, is not indicative of the amount of antibody present. Performed By: #### MEASLG, MUMPSG, RUBIGG #### [facility] [address] [place], [place] [id number] MUMPS IGG AB Collected: 03/16/2018 Status: F Source: [place] 1:12 PM [facility] REPOSITORY TYPE CODE TESTS RESULT OUT OF RANGE REFERENCE UNITS LAB MUMPSR Negative Abnormal Alert Mumps Positive IgG, Qual Result Comment: Presence of detectable mumps virus IgG antibodies. A positive result generally indicates past exposure to mumps virus or previous vaccination. LAB MUMS AU/mL Mumps IgG Ab 79.8 Result Comment: AU/mL Values interpreted as follows: Negative Specimens <9.0 Equivocal specimens 9.0 to 10.9 Positive specimens >10.9 The magnitude of the measured result, above the cutoff, is not indicative of the amount of antibody present. Performed By: #### MEASLG, MUMPSG, RUBIGG #### [facility] [address] [place], [place] [address] RUBELLA IGG ANTIBODY Collected: 03/16/2018 Status: F Source: [place] 1:12 PM [facility] REPOSITORY TYPE CODE TESTS RESULT OUT OF RANGE REFERENCE UNITS LAB RUBGQL Negative Abnormal Rubella IgG Positive Alert Ab, Qual Result Comment: Sample is considered positive for IgG antibodies to rubella virus. A positive result indicates previous exposure to Rubella virus or vaccination. LAB RUBQNT Index Value Rubella IgG Ab 21.00 Result Comment: Index values are interpreted as follows: Negative specimens <0.90 Equivocol specimens 0.90 to 0.99 Positive specimens >0.99 The magnitude of the measured result is not indicative of the amount of antibody present. Performed By: #### MEASLG, MUMPSG, RUBIGG #### [facility] [address] [place], [place] [address] PROGRESS Observed: 03/09/2018 Status: COMPLETED Source: [place] 9:03 AM [facility] REPOSITORY HNO ID: [id number] Author: Julieth Rose) [place] Service: (none) Author Type: Physician Type: Progress Notes Filed: 03/09/2018 11:13 PM Note Text: Chief Complaint Patient presents with: F/U 6 Month HPI Dian Domínguez is a 77 year old female who presents here today for routine 6 month follow up. Following up with [facility] for her right hip pain which we saw her for back in January. Treated with prednisone and PT for last 5 weeks which has improved symptoms significantly. Would like ears checked today for wax. States they become impacted easily. Denies hearing loss or ear pain. Tolerating statin as prescribed. Lipids improved on recent labs. Does not need refills today. Requesting screening mammogram. Past medical history, appointments, medications, allergies reviewed. 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 Previous Surgical History PAST SURGICAL HISTORY Procedure Laterality Date - COLONOSCOP W/ OR W/O BRSH SPEC 11/04/11 repeat 10 years - REMOVE TONSILS/ADENOIDS,<12 Y/O age 8 Family History FAMILY HISTORY Problem Relation Age of Onset - Hypertension Other - Diabetes Sister - Lipids Other - Coronary Artery Disease Father CABG >62 - Cancer Father - other (Lung Cancer) Father - Diabetes Sister Patient Allergies ALLERGIES Allergen Reactions - Bees - Clindamycin Rash - Ibuprofen Rash - Lipitor [Atorvastat* Leg weakness - Penicillins Rash Current Medications Current Outpatient Prescriptions on File Prior to Visit: atenolol (TENORMIN) 50 mg tablet Take 1 tablet by mouth once daily. pravastatin (PRAVACHOL) 40 mg tablet Take 1 tablet by mouth daily at bedtime. Cholecalciferol, Vitamin D3, 1,000 unit ORAL Cap Take 1 capsule by mouth twice daily. ASPIRIN 81 MG TAB Take one (1) tablet daily . No current facility-administered medications on file prior to visit. 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 Admits to very infrequent palpitations which last for seconds without other symptoms. GI: No nausea, vomiting, or diarrhea SKIN: Negative for lesions, rash, and itching EXAM: BP 128/72 Pulse 76 Resp 12 Wt 55.3 kg (122 lb) BMI 22.31 kg/m? General Appearance: Well appearing, alert, in no acute distress, well-hydrated, well nourished.. Skin: Skin color, texture, turgor normal, no suspicious rashes or lesions. Ears: Negative findings: Right tympanic membrane normal.Positive findings: cerumen on left, amount Moderate. Lungs: Lungs clear to auscultation. No wheezing, rhonchi, rales. Heart: RRR without murmur, gallop, or rubs. No ectopy. Abdomen: Normal abdominal exam, Abdomen soft, non-tender. Bowel sounds normal. No masses, organomegaly. Extremities: No deformities, edema, skin discoloration, clubbing or cyanosis. Good capillary refill. . Health Maintenance List BP CONTROLLED (<130/80) due on 1960 INFLUENZA(1) due on 02/11/2018 ANNUAL PCP TEAM CHRONIC DISEASE VISIT due on 01/30/2019 DIABETES SCREEN due on 08/19/2020 COLORECTAL CANCER SCREENING,SEE MODIFIER due on 11/03/2021 LIPID SCREEN due on 03/03/2023 DTAP,TDAP,TD(2 - Td) due on 07/16/2023 BONE DENSITY Completed ADULT PREVNAR-13 Completed PNEUMOVAX AGE 65 AND OVER WITH 5YR LOOKBACK Completed Data reviewed Component Latest Ref Rng AND Units 06/17/2015 06/22/2016 01/10/2017 08/16/2017 08/19/2017 08/23/2017 03/03/2018 Protein, Total 6.3 - 8.0 g/dL 6.7 Albumin 3.9 - 4.9 g/dL 3.7 (L) Calcium 8.5 - 10.2 mg/dL 9.6 9.2 9.7 Bilirubin, Total 0.2 - 1.3 mg/dL 1.0 Alkaline Phosphatase 32 - 117 U/L 78 AST 13 - 35 U/L 18 Glucose 74 - 99 mg/dL 95 96 108 (H) BUN 7 - 21 mg/dL 14 16 20 Creatinine 0.58 - 0.96 mg/dL 0.82 0.76 0.71 0.76 Sodium 136 - 144 mmol/L 141 137 140 Potassium 3.7 - 5.1 mmol/L 4.6 4.2 4.5 Chloride 97 - 105 mmol/L 100 99 100 CO2 22 - 30 mmol/L 28 26 28 Anion Gap 9 - 18 mmol/L 13 12 12 ALT 7 - 38 U/L 15 eGFR- >60 >60 >60 >60 eGFR-All Other Races . >60 >60 >60 >60 Triglyceride <150 mg/dL 128 221 (H) 273 (H) 191 (H) 204 (H) Cholesterol, Total <200 mg/dL 209 (H) 223 (H) 227 (H) 263 (H) 198 HDL Cholesterol >39 mg/dL 47 (L) 45 (L) 46 (L) 45 41 VLDL Cholesterol <30 mg/dL 26 44 (H) 55 (H) 38 (H) 41 (H) LDL Cholesterol <100 mg/dL 136 (H) 134 (H) 126 180 (H) 116 (H) Fasting Time hrs FASTING 13 12 10 10 TC:HDL Ratio <5.10 4.45 4.96 4.93 5.84 (H) 4.83 LDL:HDL Ratio <2.54 2.89 2.98 2.74 4.00 (H) 2.83 (H) Non HDL Cholesterol <130 mg/dL 162 (H) 178 (H) 181 (H) 218 (H) 157 (H) Vitamin D 25 Hydroxy 31.0 - 80.0 ng/mL 44.4 ASSESSMENT/PLAN: 1. Essential hypertension - ICD9: 401.9, ICD10: I10 (primary diagnosis) - good control - Continue current medication(s) - Encouraged dietary sodium restriction/DASH diet - Recommended regular aerobic exercise. - Reviewed risks of HTN and principles of treatment - Goal of BP <140/90 2. Hyperlipidemia, mixed - ICD9: 272.2, ICD10: E78.2 - good control - Continue current medication. - Encouraged following a low fat, low cholesterol diet. - Discussed the benefits of regular aerobic exercise and weight loss. 3. Impacted cerumen of left ear - ICD9: 380.4, ICD10: H61.22 Debrox drops as directed. To call if wax does not drain. 4. Vitamin D deficiency - ICD9: 268.9, ICD10: E55.9 Continue daily supplement. Recheck at future OV. 5. Screening mammogram, encounter for - ICD9: V76.12, ICD10: Z12.31 - Set up for mammogram, yearly mammogram recommended - Follow up for annual exam in one year. - VIPUL SCREENING Julieth Eddy MD CNOV Observed: 03/09/2018 Status: COMPLETED Source: [facility] 9:00 AM [facility] REPOSITORY Office Visit ([facility]) DIAN DOMÍNGUEZ V ([id number]) 1940 F Date Time Provider Department 03/09/18 9:00 AM JULIETH EDDY) [facility] During your visit today, we recorded the following information about you: Pulse Respiration Blood pressure Weight 76/minute 12/minute 128/72 55.3 kg Julieth Eddy MD 03/09/2018 11:13 PM Signed Chief Complaint Patient presents with: F/U 6 Month HPI Dian Domínguez is a 77 year old female who presents here today for routine 6 month follow up. Following up with [facility] for her right hip pain which we saw her for back in January. Treated with prednisone and PT for last 5 weeks which has improved symptoms significantly. Would like ears checked today for wax. States they become impacted easily. Denies hearing loss or ear pain. Tolerating statin as prescribed. Lipids improved on recent labs. Does not need refills today. Requesting screening mammogram. Past medical history, appointments, medications, allergies reviewed. 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 Previous Surgical History PAST SURGICAL HISTORY Procedure Laterality Date - COLONOSCOP W/ OR W/O [facility] SPEC 11/04/11 repeat 10 years - REMOVE TONSILS/ADENOIDS,<12 Y/O age 8 Family History FAMILY HISTORY Problem Relation Age of Onset - Hypertension Other - Diabetes Sister - Lipids Other - Coronary Artery Disease Father CABG >62 - Cancer Father - other (Lung Cancer) Father - Diabetes Sister Patient Allergies ALLERGIES Allergen Reactions - Bees - Clindamycin Rash - Ibuprofen Rash - Lipitor [Atorvastat* Leg weakness - Penicillins Rash Current Medications Current Outpatient Prescriptions on File Prior to Visit: atenolol (TENORMIN) 50 mg tablet Take 1 tablet by mouth once daily. pravastatin (PRAVACHOL) 40 mg tablet Take 1 tablet by mouth daily at bedtime. Cholecalciferol, Vitamin D3, 1,000 unit ORAL Cap Take 1 capsule by mouth twice daily. ASPIRIN 81 MG TAB Take one (1) tablet daily . No current facility-administered medications on file prior to visit. 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 Admits to very infrequent palpitations which last for seconds without other symptoms. GI: No nausea, vomiting, or diarrhea SKIN: Negative for lesions, rash, and itching EXAM: BP 128/72 Pulse 76 Resp 12 Wt 55.3 kg (122 lb) BMI 22.31 kg/m? General Appearance: Well appearing, alert, in no acute distress, well-hydrated, well nourished.. Skin: Skin color, texture, turgor normal, no suspicious rashes or lesions. Ears: Negative findings: Right tympanic membrane normal.Positive findings: cerumen on left, amount Moderate. Lungs: Lungs clear to auscultation. No wheezing, rhonchi, rales. Heart: RRR without murmur, gallop, or rubs. No ectopy. Abdomen: Normal abdominal exam, Abdomen soft, non-tender. Bowel sounds normal. No masses, organomegaly. Extremities: No deformities, edema, skin discoloration, clubbing or cyanosis. Good capillary refill. . Health Maintenance List BP CONTROLLED (<130/80) due on 1960 INFLUENZA(1) due on 02/11/2018 ANNUAL PCP TEAM CHRONIC DISEASE VISIT due on 01/30/2019 DIABETES SCREEN due on 08/19/2020 COLORECTAL CANCER SCREENING,SEE MODIFIER due on 11/03/2021 LIPID SCREEN due on 03/03/2023 DTAP,TDAP,TD(2 - Td) due on 07/16/2023 BONE DENSITY Completed ADULT PREVNAR-13 Completed PNEUMOVAX AGE 65 AND OVER WITH 5YR LOOKBACK Completed Data reviewed Component Latest Ref Rng AND Units 06/17/2015 06/22/2016 01/10/2017 08/16/2017 08/19/2017 08/23/2017 03/03/2018 Protein, Total 6.3 - 8.0 g/dL 6.7 Albumin 3.9 - 4.9 g/dL 3.7 (L) Calcium 8.5 - 10.2 mg/dL 9.6 9.2 9.7 Bilirubin, Total 0.2 - 1.3 mg/dL 1.0 Alkaline Phosphatase 32 - 117 U/L 78 AST 13 - 35 U/L 18 Glucose 74 - 99 mg/dL 95 96 108 (H) BUN 7 - 21 mg/dL 14 16 20 Creatinine 0.58 - 0.96 mg/dL 0.82 0.76 0.71 0.76 Sodium 136 - 144 mmol/L 141 137 140 Potassium 3.7 - 5.1 mmol/L 4.6 4.2 4.5 Chloride 97 - 105 mmol/L 100 99 100 CO2 22 - 30 mmol/L 28 26 28 Anion Gap 9 - 18 mmol/L 13 12 12 ALT 7 - 38 U/L 15 eGFR- >60 >60 >60 >60 eGFR-All Other Races . >60 >60 >60 >60 Triglyceride <150 mg/dL 128 221 (H) 273 (H) 191 (H) 204 (H) Cholesterol, Total <200 mg/dL 209 (H) 223 (H) 227 (H) 263 (H) 198 HDL Cholesterol >39 mg/dL 47 (L) 45 (L) 46 (L) 45 41 VLDL Cholesterol <30 mg/dL 26 44 (H) 55 (H) 38 (H) 41 (H) LDL Cholesterol <100 mg/dL 136 (H) 134 (H) 126 180 (H) 116 (H) Fasting Time hrs FASTING 13 12 10 10 TC:HDL Ratio <5.10 4.45 4.96 4.93 5.84 (H) 4.83 LDL:HDL Ratio <2.54 2.89 2.98 2.74 4.00 (H) 2.83 (H) Non HDL Cholesterol <130 mg/dL 162 (H) 178 (H) 181 (H) 218 (H) 157 (H) Vitamin D 25 Hydroxy 31.0 - 80.0 ng/mL 44.4 ASSESSMENT/PLAN: 1. Essential hypertension - ICD9: 401.9, ICD10: I10 (primary diagnosis) - good control - Continue current medication(s) - Encouraged dietary sodium restriction/DASH diet - Recommended regular aerobic exercise. - Reviewed risks of HTN and principles of treatment - Goal of BP <140/90 2. Hyperlipidemia, mixed - ICD9: 272.2, ICD10: E78.2 - good control - Continue current medication. - Encouraged following a low fat, low cholesterol diet. - Discussed the benefits of regular aerobic exercise and weight loss. 3. Impacted cerumen of left ear - ICD9: 380.4, ICD10: H61.22 Debrox drops as directed. To call if wax does not drain. 4. Vitamin D deficiency - ICD9: 268.9, ICD10: E55.9 Continue daily supplement. Recheck at future OV. 5. Screening mammogram, encounter for - ICD9: V76.12, ICD10: Z12.31 - Set up for mammogram, yearly mammogram recommended - Follow up for annual exam in one year. - VIPUL SCREENING Julieth Eddy MD Referring Provider: JULIETH EDDY) [[id number]] Allergies As of Date: 03/09/2018 Noted Allergy Reaction BEES 07/19/2005 CLINDAMYCIN 04/29/2011 2 - Rash IBUPROFEN 04/29/2011 2 - Rash LIPITOR (ATORVASTATIN CALCIUM) 07/19/2005 Comments: Leg weakness PENICILLINS 07/19/2005 2 - Rash Date Reviewed: 03/09/2018 Reviewed by: Irving Squires Ma - Fully Assessed Reason for Visit: F/U 6 Month [444] Primary Visit Diagnosis:Essential hypertension [I10] Other Visit Diagnoses:Hyperlipidemia, mixed [E78.2] Impacted cerumen of left ear [H61.22] Vitamin D deficiency [E55.9] Screening mammogram, encounter for [Z12.31] Order(s):[facility] SCREENING [[id number]] Order #: [id number] FUTURE carbamide peroxide (DEBROX) 6.5 % otic solutionUse 5 Drops in the left ear twice daily for 4 days.Disp: 1 BottleRfl: 1 COMP METABOLIC PANEL [SQCMP] Order #: [id number] FUTURE VITAMIN D 25 HYDROXY [SQVITD] Order #: [id number] FUTURE Prescriptions as of 03/09/2018 Sig: ATENOLOL 50 MG TABLET Take 1 tablet by mouth once d* PRAVASTATIN 40 MG TABLET Take 1 tablet by mouth daily * * CHOLECALCIFEROL (VITAMIN D3) * Take 1 capsule by mouth twice* * ASPIRIN 81 MG TABLET Take one (1) tablet daily . CARBAMIDE PEROXIDE 6.5 % EAR * Use 5 Drops in the left ear t* Medication notes this encounter PRAVASTATIN 40 MG TABLET >> Julieth Eddy MD 03/09/2018 9:04 AM >> JULIETH EDDY MD [facility] Mar 09, 2018 9:04 AM Taking Problem List As Of Date 03/09/2018 Noted Resolved Essential hypertension [I10] More... Other and unspecified hyperlipidemia [E78.5] INVALID FOR*09/06/2017 More... Pain in Joint, Shoulder Region [M25.519] INVALID FOR*02/09/2010 Headache [R51] INVALID FOR*02/09/2010 SEBORRHEIC KERATOSIS NOS [L82.1] INVALID FOR* Vitamin d deficiency [E55.9] INVALID FOR* More... Elevated liver function tests [R94.5] INVALID FOR*02/13/2015 More... Giant comedone [L70.0] INVALID FOR* Hyperlipidemia, mixed [E78.2] INVALID FOR* Prescriptions ordered this encounter Disp Refills Start End CARBAMIDE PEROXIDE 6.5 % EAR DROPS 1 Rajesh* 1 03/09/2018 03/13/2018 Route: LEFT EAR Sig: Use 5 Drops in the left ear twice daily for 4 days. Encounter Status:Closed by JULIETH EDDY MD on 03/09/18 LIPID PANEL, BASIC Collected: 03/03/2018 Status: F Source: [facility] 7:40 AM [facility] TYPE CODE TESTS RESULT OUT OF REFERENCE UNITS RANGE LAB CHOL <200 mg/dL Cholesterol 198 Result Comment: <200 mg/dL, Desirable 200-239 mg/dL, Borderline high >239 mg/dL, High LAB TRIGLY <150 mg/dL Triglyceride High 204 Result Comment: <150 mg/dL, Normal 150-199 mg/dL, Borderline high 200-499 mg/dL, High >499 mg/dL, Very high LAB HDL >39 mg/dL HDL-Cholesterol 41 Result Comment: 40-59 mg/dL, Acceptable >59 mg/dL, High: Negative risk factor for coronary heart disease <40 mg/dL, Low: Positive risk factor for coronary heart disease LAB LDL <100 mg/dL LDL-Cholesterol High 116 Result Comment: <100 mg/dL, Optimal 100-129 mg/dL, Near optimal/above optimal 130-159 mg/dL, Borderline high 160-189 mg/dL, High >189 mg/dL, Very high Secondary prevention optimal LDL Cholesterol levels are recommended to be < 70 mg/dL LAB NONHDL <130 mg/dL Non HDL High Cholesterol 157 Result Comment: <130 mg/dL, Optimal 130-159 mg/dL, Near optimal/above optimal 160-189 mg/dL, Borderline high 190-219 mg/dL, High >219 mg/dL, Very high Secondary prevention optimal non HDL Cholesterol levels are recommended to be < 100 mg/dL LAB FT hrs Fasting Time 10 LAB VLDL <30 mg/dL High VLDL Cholesterol 41 LAB TCHDL <5.10 TC:HDL Ratio 4.83 LAB LDLHDL <2.54 High LDL:HDL Ratio 2.83 Result Comment: Reference: 1. National Cholesterol Education Program ATP III Guideline At-A-Glance Quick Desk Reference: National Heart, Lung, and Blood [place]. National Institutes of Health. 2001: NIH Publication No. 01-3305. 2. An International Atherosclerosis Society position paper: global recommendations for the management of dyslipidemia: executive summary, Atherosclerosis. 2014: 232(2):410-413. Performed By: #### LIPB #### [facility] [address] [place], [place] [address] PROGRESS Observed: 02/15/2018 Status: COMPLETED Source: [facility]LEMENT 1:40 PM [facility] REPOSITORY HNO ID: [id number] Author: Yany Alcantara LPN Service: (none) Author Type: (none) Type: Progress Notes Filed: 02/16/2018 5:04 PM Note Text: Manual Readin/68 Pulse: 80 Reason for blood pressure check - Last BP elevated Patient is: Taking medication as prescribed Yes Took medication today No If no, date medication last taken 02/14/18 Experiencing side effects No Recommendations Continue taking medications as prescribed Follow-up Yes as scheduled Pt has been identified by name and birthdate: Yes Allergies reviewed: Yes Latex allergy: no. Medication - prescribed and OTC reviewed and updated: Yes Do you need any prescription refills prior to your next visit: No Health Maintenance: Reviewed and up to date CNOV Observed: 02/15/2018 Status: COMPLETED Source: [place] SETTLEMENT 1:40 PM [facility] REPOSITORY [facility] DIAN DOM[facility]NGUEZ V ([id number]) 1940 F Date Time Provider Department 02/15/18 1:40 PM [place] [facility] During your visit today, we recorded the following information about you: Weight 56.2 kg Yany Alcantara LPN 02/16/2018 5:04 PM Signed Manual Readin/68 Pulse: 80 Reason for blood pressure check - Last BP elevated Patient is: Taking medication as prescribed Yes Took medication today No If no, date medication last taken 02/14/18 Experiencing side effects No Recommendations Continue taking medications as prescribed Follow-up Yes as scheduled Pt has been identified by name and birthdate: Yes Allergies reviewed: Yes Latex allergy: no. Medication - prescribed and OTC reviewed and updated: Yes Do you need any prescription refills prior to your next visit: No Health Maintenance: Reviewed and up to date Referring Provider: SELF [200] Allergies As of Date: 02/15/2018 Noted Allergy Reaction BEES 07/19/2005 CLINDAMYCIN 04/29/2011 2 - Rash IBUPROFEN 04/29/2011 2 - Rash LIPITOR (ATORVASTATIN CALCIUM) 07/19/2005 Comments: Leg weakness PENICILLINS 07/19/2005 2 - Rash Date Reviewed: 02/15/2018 Reviewed by: Yany Alcantara LPN - Fully Assessed Reason for Visit: Blood Pressure [15] Primary Visit Diagnosis:Essential hypertension [I10] Prescriptions as of 02/15/2018 Sig: ATENOLOL 50 MG TABLET Take 1 tablet by mouth once d* PRAVASTATIN 40 MG TABLET Take 1 tablet by mouth daily * * CHOLECALCIFEROL (VITAMIN D3) * Take 1 capsule by mouth twice* * ASPIRIN 81 MG TABLET Take one (1) tablet daily . Problem List As Of Date 02/15/2018 Noted Resolved Essential hypertension [I10] More... Other and unspecified hyperlipidemia [E78.5] INVALID FOR*09/06/2017 More... Pain in Joint, Shoulder Region [M25.519] INVALID FOR*02/09/2010 Headache [R51] INVALID FOR*02/09/2010 SEBORRHEIC KERATOSIS NOS [L82.1] INVALID FOR* Vitamin d deficiency [E55.9] INVALID FOR* More... Elevated liver function tests [R94.5] INVALID FOR*02/13/2015 More... Giant comedone [L70.0] INVALID FOR* Hyperlipidemia, mixed [E78.2] INVALID FOR* Follow-up and Disposition History Recorded Encounter Status:Closed by YANY ALCANTARA LPN on 02/16/18 PROGRESS Observed: 01/30/2018 Status: COMPLETED Source: [place] [facility]MENT 3:57 PM [facility] REPOSITORY [facility] ID: [id number] Author: Julieth Rose) [place] Service: (none) Author Type: Physician Type: Progress Notes Filed: 01/30/2018 10:22 PM Note Text: CC: Right leg pain in right, near outer femoral crease. HPI: Patient is a 77 year old female presenting to the office today for right leg pain. Leg pain has been occurring for about 2 months, started when she was walking an indoor tract about a mile. Patient wears an yonny bandage, for support which she states really helps. Last night, after placing ice on the affected area, she was not able to move from the seated position without pain. She cannot take ibuprofen due to allergy, however does take Tylenol. States she is afraid to due leg stretches due to pain. She states she has never been diagnosed with Arthritis. Reviewed current medications, allergies, past medical history, surgical history, family history and social history today. MedicalHx: no changes in medical history since prior visit. PAST MEDICAL HISTORY Diagnosis Date - Diverticulosis of colon (without mention of hemorrhage) - Internal hemorrhoids without mention of complication - Pure hypercholesterolemia - Tachycardia, unspecified - Unspecified essential hypertension - Unspecified monoarthritis, hand 07/20/2005 HospHx: Hysteroscopy 01/10/18 PAST SURGICAL HISTORY Procedure Laterality Date - COLONOSCOP W/ OR W/O [facility] SPEC 11/04/11 repeat 10 years - REMOVE TONSILS/ADENOIDS,<12 Y/O age 8 Social History Marital status: Spouse name: Years of education: Number of children: Occupational History Occupation Employer Comment [employer] retired January 2012 Social History Main Topics Smoking status: Never Smoker Smokeless tobacco: Never Used Alcohol use: Yes Comment: rarely Drug use: No Sexual activity: Yes Partners with: Male Comment: burning after intercourse 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 pravastatin (PRAVACHOL) 40 mg tablet Take 1 tablet by mouth daily at bedtime. Cholecalciferol, Vitamin D3, 1,000 unit ORAL Cap Take 1 capsule by mouth twice daily. ASPIRIN 81 MG TAB Take one (1) tablet daily . No current facility-administered medications for this visit. ALLERGIES: ALLERGIES Allergen Reactions - Bees - Clindamycin Rash - Ibuprofen Rash - Lipitor [Atorvastat* Leg weakness - Penicillins Rash REVIEW OF SYSTEMS General: denies fever, chills, night sweats, rapid change in weight Skin: denies rashes Lungs: denies SOB CV: denies chest pain, palpitations, edema Musculoskeletal: Right leg pain, located in the outer inguinal crease. Diffuse, no pain on palpation. Only with certain movements: specifically getting up from chair, or walking up stairs. HEALTH MAINTENANCE: Reviewed health maintenance issues today and recommended the following in detail. BLOOD PRESSURE CONTROLLED due on 1960 INFLUENZA(1) due on 02/11/2018 VITALS: BP 152/72 Pulse 64 Resp 12 Wt 54.4 kg (120 lb) BMI 21.95 kg/m? Last 4 Encounter Wt Readings: Date: Wt: 01/30/2018 54.4 kg (120 lb) 09/06/2017 55.3 kg (122 lb) 08/08/2017 55.8 kg (123 lb 1.9 oz) 01/13/2017 57.2 kg (126 lb 1.9 oz) PHYSICAL EXAMINATION: General appearance: Well appearing, alert, in no acute distress, well-hydrated, well nourished. Skin: Skin color, texture, turgor normal, no suspicious rashes or lesions Lungs: Lungs clear to auscultation. No wheezing, rhonchi, rales Heart: RRR without murmur, gallop, or rubs. No ectopy Abdomen: Normal abdominal exam, Abdomen soft, non-tender. Bowel sounds normal. No masses, organomegaly Extremities: No deformities, edema, skin discoloration, clubbing or cyanosis. Musculoskeletal: No joint swelling, deformity, or tenderness that was reproducible on palpation. Full ROM of right leg. Pain was noticed when patient would stand on the right leg. Believed to be a hip stabilizer muscle strain. Peripheral pulses: Normal Neuro: Gait normal. Reflexes normal and symmetric. Sensation grossly intact. Differential: 1. Muscle Strain 2. Arthritis of hip joint 3. Repetitive use with deconditioning Assessment AND Plan 1. Repetitive use with deconditioning, and potential arhtritis -continue use of Tylenol for symptomatic relief -use heating pad 2-3x day for pain relief -continue activities, but refrain from intense exercises -contact office should symptoms worsen or change -F/U with appt. On 03/09 to check on resolution of symptoms. Dayna Bhat, OMS-III 16:41 RTO in 03/09/18 for 6 month appt. and prn. Attending Note I have personally performed a face to face assessment of the patient and have reviewed the medical student note. My neumann findings include: History is unchanged Exam is unchanged ASSESSMENT/PLAN: 1. Right hip pain - ICD9: 719.45, ICD10: M25.551 As above. Other additions or changes: None Signature: Julieth Eddy MD Date: 01/30/2018 Time: 10:20 PM CNOV Observed: 01/30/2018 Status: COMPLETED Source: [facility] SETTLEMENT 3:40 PM [facility] REPOSITORY [facility] DIAN DOMÍNGUEZ V ([id number]) 1940 F Date Time Provider Department 01/30/18 3:40 PM JULIETH EDDY) [facility]WS During your visit today, we recorded the following information about you: Pulse Respiration Blood pressure Weight 64/minute 12/minute 158/78 54.4 kg Julieth Eddy MD 01/30/2018 10:22 PM Signed CC: Right leg pain in right, near outer femoral crease. HPI: Patient is a 77 year old female presenting to the office today for right leg pain. Leg pain has been occurring for about 2 months, started when she was walking an indoor tract about a mile. Patient wears an yonny bandage, for support which she states really helps. Last night, after placing ice on the affected area, she was not able to move from the seated position without pain. She cannot take ibuprofen due to allergy, however does take Tylenol. States she is afraid to due leg stretches due to pain. She states she has never been diagnosed with Arthritis. Reviewed current medications, allergies, past medical history, surgical history, family history and social history today. MedicalHx: no changes in medical history since prior visit. 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 pravastatin (PRAVACHOL) 40 mg tablet Take 1 tablet by mouth daily at bedtime. Cholecalciferol, Vitamin D3, 1,000 unit ORAL Cap Take 1 capsule by mouth twice daily. ASPIRIN 81 MG TAB Take one (1) tablet daily . No current facility-administered medications for this visit. ALLERGIES: ALLERGIES Allergen Reactions - Bees - Clindamycin Rash - Ibuprofen Rash - Lipitor [Atorvastat* Leg weakness - Penicillins Rash REVIEW OF SYSTEMS General: denies fever, chills, night sweats, rapid change in weight Skin: denies rashes Lungs: denies SOB CV: denies chest pain, palpitations, edema Musculoskeletal: Right leg pain, located in the outer inguinal crease. Diffuse, no pain on palpation. Only with certain movements: specifically getting up from chair, or walking up stairs. HEALTH MAINTENANCE: Reviewed health maintenance issues today and recommended the following in detail. BLOOD PRESSURE CONTROLLED due on 1960 INFLUENZA(1) due on 02/11/2018 VITALS: BP 152/72 Pulse 64 Resp 12 Wt 54.4 kg (120 lb) BMI 21.95 kg/m? Last 4 Encounter Wt Readings: Date: Wt: 01/30/2018 54.4 kg (120 lb) 09/06/2017 55.3 kg (122 lb) 08/08/2017 55.8 kg (123 lb 1.9 oz) 01/13/2017 57.2 kg (126 lb 1.9 oz) PHYSICAL EXAMINATION: General appearance: Well appearing, alert, in no acute distress, well-hydrated, well nourished. Skin: Skin color, texture, turgor normal, no suspicious rashes or lesions Lungs: Lungs clear to auscultation. No wheezing, rhonchi, rales Heart: RRR without murmur, gallop, or rubs. No ectopy Abdomen: Normal abdominal exam, Abdomen soft, non-tender. Bowel sounds normal. No masses, organomegaly Extremities: No deformities, edema, skin discoloration, clubbing or cyanosis. Musculoskeletal: No joint swelling, deformity, or tenderness that was reproducible on palpation. Full ROM of right leg. Pain was noticed when patient would stand on the right leg. Believed to be a hip stabilizer muscle strain. Peripheral pulses: Normal Neuro: Gait normal. Reflexes normal and symmetric. Sensation grossly intact. Differential: 1. Muscle Strain 2. Arthritis of hip joint 3. Repetitive use with deconditioning Assessment AND Plan 1. Repetitive use with deconditioning, and potential arhtritis -continue use of Tylenol for symptomatic relief -use heating pad 2-3x day for pain relief -continue activities, but refrain from intense exercises -contact office should symptoms worsen or change -F/U with appt. On 03/09 to check on resolution of symptoms. Dayna Bhat, OMS-III 16:41 RTO in 03/09/18 for 6 month appt. and prn. Attending Note I have personally performed a face to face assessment of the patient and have reviewed the medical student note. My neumann findings include: History is unchanged Exam is unchanged ASSESSMENT/PLAN: 1. Right hip pain - ICD9: 719.45, ICD10: M25.551 As above. Other additions or changes: None Signature: Julieth Eddy MD Date: 01/30/2018 Time: 10:20 PM Referring Provider: SELF [[id number]] Allergies As of Date: 01/30/2018 Noted Allergy Reaction BEES 07/19/2005 CLINDAMYCIN 04/29/2011 2 - Rash IBUPROFEN 04/29/2011 2 - Rash LIPITOR (ATORVASTATIN CALCIUM) 07/19/2005 Comments: Leg weakness PENICILLINS 07/19/2005 2 - Rash Date Reviewed: 01/30/2018 Reviewed by: Irving Squires Ma - Fully Assessed Reason for Visit: right leg pain [Other] Cmt: x 2 months - feels it going upstairs but not going downstairs Reason For Visit History Recorded Primary Visit Diagnosis:Right hip pain [M25.551] Prescriptions as of 01/30/2018 Sig: ATENOLOL 50 MG TABLET Take 1 tablet by mouth once d* PRAVASTATIN 40 MG TABLET Take 1 tablet by mouth daily * * CHOLECALCIFEROL (VITAMIN D3) * Take 1 capsule by mouth twice* * ASPIRIN 81 MG TABLET Take one (1) tablet daily . Problem List As Of Date 01/30/2018 Noted Resolved Essential hypertension [I10] More... Other and unspecified hyperlipidemia [E78.5] INVALID FOR*09/06/2017 More... Pain in Joint, Shoulder Region [M25.519] INVALID FOR*02/09/2010 Headache [R51] INVALID FOR*02/09/2010 SEBORRHEIC KERATOSIS NOS [L82.1] INVALID FOR* Vitamin d deficiency [E55.9] INVALID FOR* More... Elevated liver function tests [R94.5] INVALID FOR*02/13/2015 More... Giant comedone [L70.0] INVALID FOR* Hyperlipidemia, mixed [E78.2] INVALID FOR* Disposition: Return if symptoms worsen or fail to improve. Follow-up and Disposition History Recorded Encounter Status:Closed by JULIETH EDDY MD on 01/30/18 12 LEAD ELECTROCARDIOGRAM Observed: 01/03/2018 Status: F Source: [place] 2:06 PM [facility] Cardiovascular Services [address] [place] [address] 12 Lead EKG 12/30/17 1329 MR#: [id number] Acct: [id number] Name: DIAN DOMÍNGUEZ V Rep #: [id number] : 1940 77 From: Javy Carey MD Attending Dr: Brian Marvin MD Status: [facility] Ordering Dr: Brian Marvin MD Date: 12/30/17 [place] [facility] F C Admitted: Test Reason : PRE-OP Blood Pressure : / mmHG Vent. Rate : 065 BPM Atrial Rate : 065 BPM P-R Int : 138 ms QRS Dur : 080 ms QT Int : 370 ms P-R-T Axes : 051 -06 033 degrees QTc Int : 384 ms Normal sinus rhythm Normal ECG When compared with ECG of 26-JUL-2003 10:39, Questionable change in QRS axis Confirmed by JAVY CAREY ([id number]), clinical editor ALEYDA SARABIA ([id number]) on 01/03/2018 2:05:52 PM Referred By: Brian Marvni Confirmed By:JAVY CAREY 01/03/18 1405 Date Javy Carey MD CC: Pérez Wiley MD; Pérez Eddy MD; Brian Marvin MD Signed DISCHARGE INSTRUCTION Observed: 01/02/2018 Status: F Source: [facility] 5:12 PM [facility] Medical Records Department [address] [place] [address] Instructions for Home/Discharge Instructions 01/02/18 1711 MR#: [id number] Acct: [id number] Name: DIAN DOMÍNGUEZ V Rep #: [id number] : 1940 77 From: Brian Marvin MD PCP: Pérez Eddy MD Status: DEP WYC Discharge Diet: No Restrictions Discharge Activity: Return to Normal Activity, May Drive - when you are no longer taking pain/narcotic medicines., May Shower, May Take a Tub Bath May resume sexual activity in: 2 weeks Additional Activity Instructions:: Ambulate often the next week after surgery. Nothing in the vagina for 5 days. Call your doctor if your incision/area has: Continuous Slow Oozing, Sudden Increased Bleeding, Increased Pain/ Swelling, Increased Redness, Foul Smelling Discharge Call your doctor if you observe: Fever of 101 or Higher, Inability to urinate, Inability to have a bowel movement, Using more than one pad per hour Allergies/Adverse Reactions: Allergies bee pollen Allergy (Verified 01/02/18 07:36) Rash Penicillins [PCN] Allergy (Verified 01/02/18 07:36) Rash atorvastatin [From Lipitor] Adverse Reaction (Verified 01/02/18 07:36) Other LEG WEAKNESS clindamycin Adverse Reaction (Verified 01/02/18 07:36) Diarrhea ibuprofen Adverse Reaction (Verified 01/02/18 07:36) Diarrhea Medications to take at Discharge Atenolol [Tenormin (Beta Renetta)] 50 mg PO QHS 10/27/17 Pravastatin [Pravachol] 40 mg PO QHS 10/27/17 RX: Aspirin E.C. [Ecotrin] 81 mg PO DAILY@0800 10/27/17 Cholecalciferol (Vitamin D3) [Vitamin D3] 1,000 unit PO BID 12/26/17 Vit C/E/Zn/Coppr/Lutein/Zeaxan [Preservision Areds 2 Softgel] 1 each PO DAILY 12/26/17 Primary Care Physician: Pérez Eddy MD [Primary Care Provider] - Test Results: Test results from this visit will be discussed in further detail at your follow-up appointment, if applicable. Please Follow Up With: Brian Marvin MD - [phone] When: 2-4 weeks 01/02/18 1712 <Electronically signed by Brian Marvin MD> Date Brian Marvin MD CC: Pérez Wiley MD; Pérez Eddy MD OPERATIVE REPORT Observed: 01/02/2018 Status: F Source: [place] 5:11 PM [facility] Medical Records Department [address] [place] [address] Operative Report 01/02/18 1652 MR#: [id number] Acct: [id number] Name: DIAN DOMÍNGUEZ V Rep #: [id number] : 1940 77 From: Brian Marvin MD PCP: Pérez Eddy MD Status: [facility] Y [place] [facility] [place] Report Date of Procedure: 01/02/18 Surgeon: Brian Marvin MD, FACOG Eight Arm Operator: BRENNON Trimble Anesthesia: Karla Flaherty CRNA Type of anesthesia: General Endotracheal Procedure: Diagnostic Hysteroscopy, fractional dilation and Curettage, Diagnostic Laparoscopy, Bilateral Salpingo-Oophrectomy Pre-op: Postmenopausal Bleeding, Large Left Ovarian Cyst Postop: Postmenopausal Bleeding, Large Left Ovarian Cyst, Endometrial Polyps Versus Fibroids Findings: 5 cm EM cavity with atrophic endometrium and to 0.5 cm fibroids versus polyps; 7-8 cm simple appearing left ovarian cyst, normal fallopian tubes and right ovary, normal upper abdomen, normal-appearing uterus. Cervix which protruded to within 3 cm of the introitus. LAVH or RAVH would likely be possible. Indication: This is a 77 year old patient who has been having problems with postmenopausal bleeding. Ultrasound also revealed a 7 cm left simple appearing cyst. Endometrial biopsy was benign. Given this was decided to proceed with the above surgery. The patient has been counseled regarding the risk and indications of this procedure including the possibility of bleeding, infection, and injury to surrounding structures such as bowel bladder. All questions were answered. Procedure: Patient taken to the operating room where after induction of general anesthesia the patient was prepped and draped in the usual sterile fashion. Bladder was drained of urine with a catheter. Anterior cervix grasped and cervix was dilated to about 5 mm. Hysteroscope was placed and the above findings were noted. In the course of the procedure approximately 200 cc of glycine distending media was used and virtually all of this was recovered. After the hysteroscopy was complete endocervical curettings were obtained and cervix dilated to about 7-8 mm. Uterus was then gently curetted removing all contents including the 2 masses which were visualized with the hysteroscope. Photographs were taken. Conn cannula was placed and attention was turned toward the laparoscopic portion of the procedure. Approximately 30 cc of half percent ropivacaine was injected subumbilically suprapubically and midway between. A 5 mm bladeless trocar was placed subumbilically and intraperitoneal placement confirmed. After CO2 insufflation was complete, a 5 mm bladeless trocar was introduced suprapubically. The above findings were noted. A 5 mm port was then placed midway between these 2 ports for tubal manipulation. An Enseal device was then used to ligate the infundibulopelvic ligaments in each adnexa. The lower 5 mm port was removed and a 10/12 mm port was placed. An Endo bag was placed in this port after removal of the right tube and ovary. The left adnexa was placed in this bag and after extending the fascia the tube and ovary were brought through the lower port site after removing the trocar. Fascia was then closed with running 0 Vicryl suture and subcutaneous tissue irrigated with saline. 3-0 Vicryl suture was then used in a running fashion to reapproximate subcutaneous tissue. The abdomen was reinsufflated and the peritoneal cavity and upper abdomen were examined and noted to be normal. Laparoscopic instruments with as much CO2 gas as possible were removed and incisions were closed with interrupted and running 4-0 Monocryl suture. Steri-Strips placed across the incisions. Patient tolerated procedure well was taken to recovery room in satisfactory condition sponge instrument and needle counts were all reportedly correct. Estimated blood loss for the case was minimal. Specimens to pathology were endocervical and endometrial curettings and bilateral fallopian tubes and ovaries. 01/02/18 9523 <Electronically signed by Brian Marvin MD> Date Brian Marvin MD CC: Pérez Wiley MD; Pérez Eddy MD; Brian Marvin MD Signed ENDOCER CURETT/BIOPSY Observed: 01/02/2018 Status: F Source: JADEN 9:00 AM [facility] Patient: DIAN DOMÍNGUEZ V : 1940 (77/F) Acct Num: [id number] Phys: Rocio BINGHAM,Brian Unit Num: [id number] [place] [facility]imen: [id number] Received: 01/02/18 - 1150 Spec Type: ECC TISSUES TISSUES: A. Endocervical B. Endometrium, NOS C. Left ovary D. Right ovary GROSS DESCRIPTION A - Received in fixative is one container labeled with the patient's name and designated endocervical curettings. The specimen consists of multiple fragments of barrett mucoid tissue that in aggregate measure 0.5 x 0.5 x 0.1 cm. The specimen is totally submitted in one cassette. B - Received in fixative is one container labeled with the patient's name and designated endometrial curettings. The specimen consists of multiple fragments of hemorrhagic soft tissue that in aggregate measure 2.5 x 1 x 0.1 cm. Also present in the container are two pieces of polypoid tissue measuring 0.5 and 1 cm in greatest dimension. Both pieces are bisected. The entire specimen is submitted in two cassettes as follows: 1 hemorrhagic soft tissue, 2 polypoid tissue. C - Received in fixative is one container labeled with the patient's name and designated left tube and ovary. The specimen consists of a cystic ovary with overlying fallopian tube. The cystic ovary measures 7 x 7 x 4.5 cm. The outer surface of the ovary is smooth. The ovary weighs 85 gm. The outer surface of the ovary is inked black. The cystic ovary contains clear yellow fluid. The cyst wall is smooth. No papillations are identified. The cyst wall measures up to 0.1 cm in thickness. The fallopian tube measures 5.5 cm in length and up to 0.5 cm in diameter. The fimbrial end is identified. Sections reveal unremarkable cut surfaces. No tubo-ovarian adhesions are identified. Rn Gynecology sections are submitted in three cassettes as follows: 1 AND 2 ovary, 3 fallopian tube. D - Received in fixative is one container labeled with the patient's name and designated right tube and ovary. The specimen consists of a fallopian tube and adjacent ovary and detached cyst. The fallopian tube measures 5 cm in length and up to 0.5 cm in diameter. The fimbrial end is identified. Tubo- ovarian adhesions are not seen. The ovary is partially disrupted and measures 2.5 x 1 x 1 cm. Sections reveal two cysts filled with clear fluid. The detached cyst measures 1 x 1 x 0.8 cm. It is filled with clear fluid. Rn Gynecology sections are submitted in three cassettes as follows: 1 fallopian tube, 2 ovary, 3 ovary and detached cyst. The ovary and detached cyst are submitted in entirety. / PATRIZIA:michelle 01/02/18 TC:1 CPT: 98893 x2, 81937 x2 HEADER OPERATION: Hysteroscopy, dilation and curettage, laparoscopy, bilateral salpingo -oophorectomy PRE-OP DIAGNOSIS: Left ovarian cyst, postmenopausal bleeding TISSUE SUBMITTED: A Endocervical curettings, B Endometrial curettings, C Left tube and ovary, D Right tube and ovary MICROSCOPIC DESCRIPTION Slides are reviewed. MICROSCOPIC DIAGNOSIS A. Endocervical curettings: Desquamated benign ecto- and endocervical epithelial cells and mucous, negative for dysplasia. B. Endometrial curettings: Strips and superficial fragments of benign endometrial tissue consistent with atrophic endometrium. Fragments of benign endometrial polyp with simple cystic hyperplasia without atypia. C. Left fallopian tube and ovary, salpingo-oophorectomy: Simple serous cyst adenoma (7 cm in greatest dimension). Mesothelial inclusion cysts. D. Right fallopian tube and ovary, salpingo-oophorectomy: Simple serous cyst adenoma (1 cm in greatest dimension). Mesothelial inclusion cysts. SJ:michelle 01/03/18 Signed Jared Ramos 01/03/18 <signature on file> Performed By: #### PECC #### [facility] [address] [place], [address] HISTORY AND PHYSICAL Observed: 01/01/2018 Status: F Source: [place] EXAM 7:55 PM [facility] Medical Records Department [address] [place] [address] History and Physical 01/01/181952 MR#: [id number] Acct: [id number] Name: DIAN DOMÍNGUEZ V Rep #: [id number] : 1940 77 From: Brian Marvin MD PCP: Pérez Eddy MD Status: PRE [facility] [place] [facility] History and Physical Date of Admission: 01/02/18 Surgical History and Physical Dian Domínguez, a 77 year old female 2 0 0 0 2, presents for D and C, H/S, Dx L/S, Bilateral salpingectomy, left oophrectomy on January 02, 2018 at 9:00. 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 It occurs after IC. It is located in the vagina. Dian characterizes the quality bloody urine for a few days after IC. Severity is mild and not improving; associated signs and symptoms are no other symptoms. Additional comments are: urology w/u negative by Dr. Cuevas; pelvic u/s showed 5 cm left simple cyst and 1 cm EM stripe. MEDICATIONS HISTORY: Patient is also takin. atenolol 50 mg tablet, 1 PO QD 2. pravastatin 40 mg tablet, 1 PO QD 3. PreserVision AREDS 14,320 unit-226 mg-200 unit capsule, 1 PO QD ALLERGIES: Penicillins, Rash, Clindamycin, Intolerance-diarrhea, Lipitor, Muscle weakness, Ibuprofen and Generalized rash Illnesses - hypertension, high cholesterol Accidents - None Review of Systems: GENERAL - Denies fever, or chills SKIN - Denies skin changes EYES - Denies visual changes EARS - Denies difficulty hearing NOSE - Denies nasal congestion or bleeding MOUTH - Denies sore throat or difficulty swallowing NECK - Denies pain or swelling RESPIRATORY - Denies shortness of breath or wheezing CARDIOVASCULAR - Denies palpitations or chest pain GASTROINTESTINAL - Denies nausea, vomiting, diarrhea, constipation GENITOURINARY - Denies dysuria, frequency of urination, incontinence of urine MUSCULOSKELETAL - Denies joint or muscle pain NEUROLOGICAL - Denies localized numbness or weakness PSYCHIATRIC - Denies depression or anxiety ENDOCRINE - Denies heat or cold intolerance, weight loss or gain HEMATO-IMMUNOLOGIC - Denies excesive bleeding with cuts SOCIAL HISTORY: Alcohol Use - denies use Smoking - Never Illicit Drug Use - denies use of street drugs Spouse-Sig Other Name - Mike FAMILY HISTORY: nc MENSTRUAL HISTORY: menopausal PAST PREGNANCIES: Total Pregnancies - 2; Full Term Pregnancies - 2; Premature - 0; Abortions, Induced - 0; Abortions, Spontaneous - 0; Ectopics - 0; Multiple Births - 0; Living Children - 2 SURGICAL HISTORY: 1. 11/02/2017 cystoscopy PHYSICAL EXAM BP- 120/60 Sitting, Right arm, regular cuff Weight- 121.48156 lbs Height- 62.00 inch BMI:22.21 CONSTITUTIONAL - NAD, well nourished, and well developed SKIN - No rash, lesions, or ulcers HEENT - Normocephalic, PERRLA, EOMI NECK - No nodes, no nuchal rigidity and thyroid normal size and texture LYMPH NODES - Palpation of lymph nodes in neck and groins within normal limits LUNGS - CTA x2 without wheezes, crackles or rales CARDIAC - Regular rate and rhythm without rubs, murmurs, or gallops ABDOMEN - Without hepatosplenomegaly, distention, masses, rebound, or guarding; normal bowel sounds; no hernias EXTREMITIES - No edema or calf tenderness NEUROLOGICAL - Cranial nerves II-XII grossly intact PSYCHIATRIC - A and O to time, place, person, mood and affect DETAILED PELVIC EXAM External Genitial Vagina - non-tender without lesions Urethra/Urethral Meatus - non-tender Bladder - non-tender Vagina - vaginal cool are pink and moist without loss of rugae and no evidence of atropy Cervix - without cervical motion tenderness and has normal size and features without evident lesions and cervix with easy bleeding with brush Uterus - multiparous size 6 cm AND wt 75-125 g Adnexa - clear without massess or tenderness ASSESSMENT/PLAN: 1. Nonspecific Abnormal Findings On Radiological And Other Examination Of Genitourinary Organs, Ovarian Cyst Nos and Postmenopausal Bleeding EMBx and CA-125 OK but endometrial stripe thickened. Need to proceed with D and C, H/S. Given this will also perform LST and right salpingectomy. Discussed RBAs and all questions answered. 01/01/181954 <Electronically signed by Brian Marvin MD> Date Brian Marvin MD Cosigner Signature: Date (if applicable) CC: Pérez Wiley MD; Pérez Eddy MD; Brian Marvin MD Signed TYPE AND SCREEN Collected: 12/28/2017 Status: F Source: [place] 2:02 PM [facility] Order Comment: Surgery Date: 01/02/18 Hx of Preganancy in last 3 Months No Ever experience any problems with transfusion(s)? N Hx of Transfusion in last 3 Months N Reason for Type AND Screen/Red Cells: SURGERY SURGICAL PROCEDURE: 58788 TYPE CODE TESTS RESULT OUT OF RANGE REFERENCE UNITS LAB B10.0800 A Normal BLOOD TYPE GEL POSITIVE LAB B100.4000 Normal Antibody NEGATIVE Screen Performed By: #### B101.7475 #### [facility] [address] [place], [address] CBC-COMPLETE BLOOD CNT Collected: 12/28/2017 Status: F Source: JADEN NO DIFF 1:58 PM [facility] TYPE CODE TESTS RESULT OUT OF RANGE REFERENCE UNITS LAB L100.1000 4.4-11.0 K/mm3 Normal WBC 10.3 LAB L100.1200 4.2-5.4 M/mm3 Normal RBC 4.46 LAB L100.1300 12.0-15.0 g/dl Normal HGB 12.9 LAB L100.1400 37-47 % Normal HCT 39.3 LAB L100.1500 81-99 fL Normal MCV 88.1 LAB L100.1600 27.0-32.0 pg Normal MCH 28.9 LAB L100.1700 32-36 g/gl Normal MCHC 32.8 LAB L100.1810 11.6-14.6 % Normal RDW CV 12.6 LAB L100.1820 35.1-43.9 fl Normal RDW SD 40.2 LAB L100.1900 150-450 K/mm3 Normal PLT 339 LAB L100.2000 6.2-12.0 fl Normal MPV 10.9 Performed By: #### L100.0500 #### [facility] [address] [place], [address] PROTHROMBIN TIME W/INR Collected: 12/28/2017 Status: F Source: [place] 1:58 PM [facility] TYPE CODE TESTS RESULT OUT OF RANGE REFERENCE UNITS LAB L300.4150 11.7-14.9 SECONDS Normal PROTIME 13.4 LAB L300.4200 Normal INR 1.0 Performed By: #### L300.3900, L300.4310 #### [facility] [address] [place], [address] PARTIAL THROMBOPLAST Collected: 12/28/2017 Status: F Source: [facility] 1:58 PM [facility] REPOSITORY TYPE CODE TESTS RESULT OUT OF RANGE REFERENCE UNITS LAB L300.4310 24.1-36.2 Seconds Normal PTT 27.6 Performed By: #### L300.3900, L300.4310 #### [facility] [address] [place], [address] COMPREHENSIVE METABOLIC Collected: 12/28/2017 Status: F Source: C[place] PROFIL 1:58 PM [facility] REPOSITORY TYPE CODE TESTS RESULT OUT OF RANGE REFERENCE UNITS LAB L501.0100 74-106 mg/dL High GLU 114 Result Comment: Fasting Glucose result from 100 to 125 mg/dL suggests IMPAIRED HOMEOSTASIS per A.D.A. criteria. Please note revised GLUCOSE reference range effective 2017. LAB L501.1000 7-18 mg/dL Normal BUN 15 LAB L501.1100 0.55-1.02 mg/dL Normal CREAT,SERUM 0.74 Result Comment: The validity of the calculated GFR AND GFRAA in patients over 70 years has not been determined. Clinical correlation is essential. LAB L501.1110 >60 mL/min Normal EST GFR 81 Result Comment: Non- GFR Calc LAB L501.1115 >60 mL/min Normal EST GFR - AA 98 Result Comment: GFR Calc LAB L501.1300 10-20 RATIO High BUN/CRE 20.2 LAB L501.1500 6.4-8.2 g/dL T Normal PROT 7.4 LAB L501.1800 3.2-5.0 g/dL Normal ALB 3.5 LAB L501.1950 2.2-4.2 g/dL Normal GLOB 3.9 LAB L501.2000 0.9-2.4 RATIO Normal A/G 0.9 LAB L501.2200 8.5-10.1 mg/dL CA Normal 9.2 LAB L501.4100 15-37 U/L Normal AST 17 LAB L501.4305 45-117 U/L Normal ALK P 88 LAB L501.4405 13-56 U/L Normal ALT 24 LAB L501.4600 0.20-1.00 mg/dL T Normal BILI 0.80 LAB L501.5300 136-145 mmol/L NA Normal 139 LAB L501.5600 3.5-5.1 mmol/L K Normal 3.7 LAB L501.5900 98-107 mmol/L CL Normal 103 LAB L501.6100 21.0-32.0 mmol/L Normal CO2 30.0 LAB L501.6200 5-15 Normal GAP 6 Performed By: #### L500.4050 #### [facility] [address] [place], [address] DOWNTIME REPORT Observed: 12/01/2017 Status: F Source: CLAYTON 2:19 PM [facility] Medical Records Department [address] [place] [address] Downtime Report MR#: [id number] Acct: [id number] Name: DIAN DOMÍNGUEZ V Rep #: [id number] : 1940 76 From: Phil Sarabia PCP: Status: REG CLI This patient was seen during an EMR downtime November 14, 2017 - November 21, 2017. This patient may have a combination of paper and electronic documentation or all paper documentation. All documentation is viewable within the e-chart portion of [place] for each patient visit. CANCER ANTIGEN 125 Collected: 11/21/2017 Status: F Source: [place] 4:07 PM [facility] REPOSITORY TYPE CODE TESTS RESULT OUT OF RANGE REFERENCE UNITS LAB L3100.5000 0.0-38.1 U/mL Normal CA125 11.6 2303 Result Comment: Alexa ECLIA methodology Performed at: [address] [id number] Proofsheet Corrector: Clarke Winter PhD, Phone: [phone] Performed By: #### L3100.5000 #### [facility] (refer to report for specific site) refer to report for address and phone number PAP TEST I-G Collected: 11/21/2017 Status: F Source: JDAEN 3:45 PM [facility] REPOSITORY Order Comment: CYTOLOGY INFORMATION: - CLINICAL INFORMATION: POSTMENOPAUSAL - DATE LMP/MENOPAUSE: - COLLECTION VIAL: Thin Prep 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 of containers..01 ThinPrep Vial TYPE CODE TESTS RESULT OUT OF RANGE REFERENCE UNITS LAB L7400.0800 . Normal DIAGN Comment Result Comment: NEGATIVE FOR INTRAEPITHELIAL LESION AND MALIGNANCY. CELLULAR CHANGES ASSOCIATED WITH INFLAMMATION ARE PRESENT. LAB L7400.0900 . Normal ADEQ Comment Result Comment: Satisfactory for evaluation. Endocervical and/or squamous metaplastic cells (endocervical component) are present. LAB L7400.1400 . Normal PERFORM Comment Result Comment: Abby Diaz, Stem Processing Machine Operator (ASCP) LAB L7400.9486 . Normal TEST METHOD Comment Result Comment: This liquid based ThinPrep(R) pap test was screened with the use of an image guided system. Performed at: [address] [id number] Proofsheet Corrector: Sasha Parr MD, Phone: [phone] LAB L7400.2624 . Normal . COMM LAB L7400.0987 . Normal PAPSMR Comment Result Comment: The Pap smear is a screening test designed to aid in the detection of premalignant and malignant conditions of the uterine cervix. It is not a diagnostic procedure and should not be used as the sole means of detecting cervical cancer. Both false-positive and false-negative reports do occur. Performed By: #### L7400.0399 #### [facility] (refer to report for specific site) refer to report for address and phone number ENDOMETRIAL BX/CURETTINGS Observed: 11/21/2017 Status: F Source: JADEN 12:00 AM [facility] REPOSITORY Patient: DIAN DOMÍNGUEZ V : 1940 (76/F) Acct Num: [id number] Phys: Rocio BINGHAM,[facility] Unit Num: [id number] Loc: [facility] Specimen: [id number] Received: 11/21/171748 Spec Type: ENDOM BX/C TISSUES TISSUES: A. Endometrium, NOS B. Endocervical GROSS DESCRIPTION A - Received in fixative is one container labeled with the patient's name and designated EM biopsy. The specimen consists of multiple irregular fragments of barrett mucoid tissue that in aggregate measure 2.5 x 0.2 x 0.1 cm. The specimen is totally submitted in one cassette. B - Received in fixative is one container labeled with the patient's name and designated ECC. The specimen consists of multiple fragments of hemorrhagic mucoid tissue that in aggregate measure 1 x 1 x 0.2 cm. The specimen is totally submitted in one cassette. / SJ:michelle 11/22/17 TC:4 CPT: 84566 x2 HEADER OPERATION: Endometrial biopsy PRE-OP DIAGNOSIS: Postmenopausal bleeding TISSUE SUBMITTED: A - Endometrial biopsy, B - ECC MICROSCOPIC DESCRIPTION Slides are reviewed. MICROSCOPIC DIAGNOSIS A. Endometrial biopsy: Scant strips of benign endometrial epithelium, consistent with atrophic endometrium. Fragments of benign endocervical epithelium and mucous. B. ECC: Fragments of benign endocervical epithelium, blood and mucous. SJ:michelle 11/23/17 Signed Jared Ramos 11/23/17 <signature on file> Performed By: #### PEMB #### [facility] [address] [facility] [place], [address] OPERATIVE REPORT Observed: 11/02/2017 Status: F Source: JADEN 3:05 PM [facility] Medical Records Department [address] [place] [address] Operative Report 11/02/17 1502 MR#: [id number] Acct: [id number] Name: DIAN DOMÍNGUEZ V Rep #: [id number] : 1940 76 From: Felice Cuevas MD PCP: Pérez Eddy MD Status: REG SDC Y Location: [place] [address] Report of Operation Date of Procedure: 11/02/17 Pre-Operative Diagnosis: preoperative diagnosis is gross hematuria, question of a thickened Left ureter and mass in the ureter on CAT scan, lower pole left kidney stone. Post-Operative Diagnosis: Same Surgery/Procedure Performed:: Cystoscopy, left retrograde pyelogram, left ureteroscopy. Description of Surgical Findings:: 76-year-old female who had an episode of gross hematuria cystoscopy in the office was negative, we did a CAT scan which demonstrated some thickening in the ureter inflammation in the left kidney small stone in the lower pole of the left kidney today we plan to do ureteroscopy possible laser the stone possible stent placement possible biopsy if there is any abnormalities. Patient was taken back to the operating room at the smooth induction of general anesthesia she was placed in dorsal lithotomy position. The urethra and vaginal area were prepped and draped in usual sterile fashion on bimanual exam I could not appreciate any masses or abnormalities, and cystoscopy showed a normal bladder with no tumors or stones right and left ureteral orifice normal position, I then cannulated the left ureteral orifice performed a left retrograde pyelogram which is normal, I then placed 2 Glidewire of the left ureter and went up the left ureter with the flexible ureteroscope the entire length of the ureter was clean of any stones tumors or abnormalities the UPJ was normal I inspected the kidney upper pole midpole and lower pole the kidney on CAT scan there was a possible stone in the lower pole the kidney but it was too difficult to reach with ureteroscopy and was in the calyx that was unreachable and therefore felt like treatment the stone was not necessary in a very lower pole stone. I worked down the ureter with the ureteroscope and no tumors or stones or adenopathies were seen along the course of the ureter came out of the ureter and then decided not to leave a stent drain the kidney and the patient's anesthetic is being reversed and I will talk to her . Type of Anesthesia:: General Drains: none - Admit VTE Documentation VTE Present on Admission: No VTE Mechan Device Prophylaxis: SCD's VTE Pharm Prophylaxis ordered?: No Reason prophylaxis not ordered:: Treatment Not Indicated 11/02/17 1505 <Electronically signed by Felice Cuevas MD> Date Felice Cuevas MD CC: Pérez Wiley MD; Pérez Eddy MD; Felice Cuevas MD Signed DISCHARGE INSTRUCTION Observed: 11/02/2017 Status: F Source: JADEN 2:08 PM [facility] Medical Records Department [address] [place] [address] Instructions for Home/Discharge Instructions 11/02/17 1407 MR#: [id number] Acct: [id number] Name: DIAN DOMÍNGUEZ V Rep #: [id number] : 1940 76 From: Felice Cuevas MD PCP: Pérez Eddy MD Status: [place] [facility] [place] Diet: Light diet - advance as tolerated Discharge Activity: May not drive while taking narcotic pain medications. Return to work on:: 11/07/17 Call your doctor if you observe: Fever of 101 or Higher, Uncontrolled pain Suture Line Care: Avoid Pulling/Pushing, Avoid Pinching/Bending Allergies/Adverse Reactions: Allergies Penicillins [PCN] Allergy (Verified 10/27/17 10:06) Rash atorvastatin [From Lipitor] Adverse Reaction (Verified 10/27/17 10:07) Other LEG WEAKNESS clindamycin Adverse Reaction (Verified 10/27/17 10:07) Diarrhea ibuprofen Adverse Reaction (Verified 10/27/17 10:07) Diarrhea Medications to take at Discharge Aspirin E.C. [Ecotrin] 81 mg PO DAILY@0800 10/27/17 Atenolol [Tenormin (Beta Renetta)] 50 mg PO DAILY 10/27/17 Pravastatin [Pravachol] 40 mg PO QHS 10/27/17 Ciprofloxacin [Cipro] 500 mg PO BID #6 tab 11/02/17 Hydrocodone Bitart/Apap 5-325 [[place] 5MG-325MG] 1 tab PO Q4H PRN PRN 5 Days #14 tab 11/02/17 The following prescriptions were given: Hydrocodone Bitart/Apap 5-325 [[place] 5MG-325MG] 1 tab PO Q4H PRN PRN 5 Days #14 tab PRN Reason: Pain Ciprofloxacin [Cipro] 500 mg PO BID #6 tab Primary Care Physician: Pérez Eddy MD [Primary Care Provider] - Please Follow Up With: Felice Cuevas MD When: TuesdayNovember 14 at 1:30 pm 11/02/17 1408 <Electronically signed by Felice Cuevas MD> Date Felice Cuevas MD CC: Pérez Wiley MD; Pérez Eddy MD CREATININE FINGERSTICK Collected: 10/19/2017 Status: F Source: [place] 2:09 PM [facility] REPOSITORY TYPE CODE TESTS RESULT OUT OF RANGE REFERENCE UNITS LAB L9100.0210 0.55-1.02 mg/dL Normal CREATININE WB < 0.6 LAB L9100.0220 >60 mL/min EGFR WB Normal > 60.0000 Performed By: #### L9100.0200 #### [facility] Point of Care [address] [place] [address] ABDOMEN/PELVIS W IV CONT Observed: 10/19/2017 Status: F Source: CLAYTON ONLY 2:01 PM [facility] Imaging Services [address] [place] [address] Abdomen/Pelvis W IV Cont ONLY MR#: [id number] Acct: [id number] Name: DIAN DOMÍNGUEZ V Rep #: [id number] : 1940 F 76 From: Main Hou MD PCP: Pérez Eddy MD Status: REG CLI Study: Abdomen/Pelvis W IV Cont ONLY Date of Exam: 10/19/17 Exam# [id number] Ordering Dr: Felice Cuevas MD STUDY: CT ABDOMEN AND PELVIS WITH CONTRAST REASON FOR EXAM: Female, 76 years old. HEMATURIA, LT FLANK PAIN/HX KS, OVARIAN CYST RADIATION DOSAGE (If Supplied By Facility): CTDIvol = ( 8.90 ) mGy, DLP = ( 629.36 ) mGycm TECHNIQUE: Transaxial images were obtained from the dome of the diaphragm to the symphysis pubis without oral contrast. 100 ml of Isovue 300 contrast was administered. Sagittal and coronal images were reconstructed. Individualized dose optimization techniques were used for this CT. COMPARISON: None. FINDINGS: There are atherosclerotic calcifications of visualized coronary arteries. The visualized portions of the heart are within normal limits. Normal liver. Normal gallbladder and extrahepatic biliary system. Normal spleen. Normal pancreas. Normal bilateral adrenal glands. There are bilateral peripelvic cysts. Non obstructive 4.7 mm inferior left renal parenchymal stones. Mild left hydronephrosis. Obstructing stone is not visualized. There is diffuse enhancement of the left proximal ureter. Solid area of enhancement visualized in the proximal left ureter. This area measures 4.3 mm. This may represent a partially obstructing lesion. Transitional cell carcinoma needs to be excluded. Normal visualized stomach. Normal small intestine. Normal colon. The appendix is visualized and appears normal. There are calcifications of the abdominal aorta and vascular structures. This is consistent for atherosclerotic disease. There is no abdominal aortic aneurysm. Normal inferior vena cava. Subcentimeter mesenteric lymph nodes. Normal urinary bladder. The uterus is lobulated in contour. There are multiple partially calcified masses in the uterus. This is consistent for a fibroid/ myomatous uterus. Normal abdominal wall. There are degenerative changes of the osseous structures. Degenerative findings of the symphysis pubis. CT/Abdomen/Pelvis W IV Cont ONLY IMPRESSION: Mild left hydronephrosis. Obstructing stone is not visualized. There is diffuse enhancement of the left proximal ureter. Solid area of enhancement visualized in the proximal left ureter. This area measures 4.3 mm. This may represent a partially obstructing lesion. Transitional cell carcinoma needs to be excluded. Non obstructive 4.7 mm inferior left renal parenchymal stones. Other findings as above. Electronically Signed: Main Hou MD at 20:14 EDT , Service support , CC: Pérez Eddy MD; Felice Cuevas MD Intelligence Senior Sergeant: Signed FLUID/WASHING Observed: 10/10/2017 Status: F Source: JADEN 11:30 AM [facility] REPOSITORY Patient: DIAN DOMÍNGUEZ V : 1940 (76/F) Acct Num: [id number] Phys: Mason BINGHAM,Felice [place] Unit Num: [id number] Loc: [facility] Specimen: [id number] Received: 10/11/17928 Spec Type: Fluid TISSUES TISSUES: Urine CYTOLOGY GROSS Received is 65 ml of clear yellow fluid labeled with the patient's name and and designated per the requisition as urine. Submitted for cytology preparation. / RB:cc 10/11/17 TC:5 CPT: 67917 CYTOLOGY STUDY Slides are reviewed. The specimen consists of benign squamous cells, urothelial cells, inflammatory cells and organisms consistent with bacteria. DIAGNOSIS CYTOLOGY Urine for cytology (cytospin): Negative for malignant cells. SJ:michelle 10/12/17 HEADER OPERATION: Not noted PRE-OP DIAGNOSIS: Hematuria TISSUE SUBMITTED: Urine for cytology Signed Jared Ramos 10/12/17 <signature on file> Performed By: #### PFLU #### [facility] [place], [address] CNOV Observed: 09/06/2017 Status: COMPLETED Source: FRENCH SETTLEMENT 6:00 PM [facility] REPOSITORY Office Visit (FAMPWS) DIAN DOMÍNGUEZ V ([id number]) 1940 F Date Time Provider Department 09/06/17 6:00 PM JULIETH EDDY) FAMPWS During your visit today, we recorded the following information about you: Pulse Respiration Blood pressure Weight 64/minute 16/minute 138/74 55.3 kg Height 1.575 m Julieth Eddy MD 09/06/2017 7:08 PM Signed Chief Complaint Patient presents with: transfer care HPI Dian Domínguez is a 76 year old female who presents here today for transfer of care visit from Dr. Castañeda. Denies new complaints today. Patient has been seen recently for gross hematuria and was found to have hydronephrosis and ovarian cyst and has appointment scheduled with Dr. Cuevas next week. Hematuria stopped after single dose of abx, but patient was not found to have UTI. Finished full course of abx anyways. Discussed ordering repeat UA after seeing urology next week and will follow up their recommendations. Patient exercises on a regular basis with walking on a daily basis. Eats healthy diet with mostly home cooked meals, limited junk food, or fast food. Reviewed recent blood work which shows worsening cholesterol. Previously taking pravastatin which was stopped as they did not think it was having much effect. Would like to restart on previous dose. Up to date on . Past medical history, appointments, medications, allergies reviewed. 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 Previous Surgical History PAST SURGICAL HISTORY Procedure Laterality Date - COLONOSCOP W/ OR W/O [facility] SPEC 11/04/11 repeat 10 years - REMOVE TONSILS/ADENOIDS,ANDlt;14 Y/O age 8 Family History FAMILY HISTORY Problem Relation Age of Onset - Hypertension - Diabetes Sister - Lipids - Lung Cancer [Other] [OTHER] Father - Coronary Artery Disease Father CABG ANDgt;62 - Cancer Father Patient Allergies ALLERGIES Allergen Reactions - Bees - Clindamycin Rash - Ibuprofen Rash - Lipitor [Atorvastat* Leg weakness - Penicillins Rash Current Medications Current Outpatient Prescriptions on File Prior to Visit: atenolol (TENORMIN) 50 mg tablet take 1 tablet by mouth once daily Cholecalciferol, Vitamin D3, 1,000 unit ORAL Cap Take 1 capsule by mouth twice daily. ASPIRIN 81 MG TAB Take one (1) tablet daily . No current facility-administered medications on file prior to visit. 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 Admits to rare palpitations. GI: No nausea, vomiting, or diarrhea SKIN: Negative for lesions, rash, and itching EXAM: BP 138/74 Pulse 64 Resp 16 Ht 157.5 cm (5' 2ANDquot;) Wt 55.3 kg (122 lb) BMI 22.31 kg/m2 General Appearance: Well appearing, alert, in no acute distress, well-hydrated, well nourished.. Skin: Skin color, texture, turgor normal, no suspicious rashes or lesions. Head: Normocephalic, no masses, lesions, tenderness or abnormalities. Eyes: Anicteric sclera. Pupils are equally round and reactive to light. Extraocular movements are intact. . Ears: External ears normal, canals clear. Oropharynx: Lips, mucosa, and tongue normal, teeth and gums normal, oropharynx normal. Neck: Supple, no adenopathy; thyroid symmetric, normal size, no bruits. Lungs: Lungs clear to auscultation. No wheezing, rhonchi, rales. Heart: RRR without murmur, gallop, or rubs. No ectopy. Abdomen: Normal abdominal exam, Abdomen soft, non-tender. Bowel sounds normal. No masses, organomegaly. Extremities: No deformities, edema, skin discoloration, clubbing or cyanosis. Good capillary refill. . Health Maintenance List MAMMOGRAM due on 04/05/2018 DIABETES SCREEN due on 08/19/2020 COLORECTAL CANCER SCREENING,SEE MODIFIER due on 11/03/2021 LIPID SCREEN due on 08/23/2022 TETANUS due on 07/16/2023 BONE DENSITY Completed ADULT PREVNAR-13 Completed INFLUENZA Completed PNEUMOVAX AGE 65 AND OVER WITH 5YR LOOKBACK Completed Data reviewed Component Latest Ref Rng ANDamp; Units 06/17/2015 06/22/2016 01/10/2017 08/08/2017 08/16/2017 08/19/2017 08/23/2017 Protein, Total 6.3 - 8.0 g/dL 6.7 Albumin 3.9 - 4.9 g/dL 3.7 (L) Calcium 8.5 - 10.2 mg/dL 9.6 9.2 9.7 Bilirubin, Total 0.2 - 1.3 mg/dL 1.0 Alkaline Phosphatase 32 - 117 U/L 78 AST 13 - 35 U/L 18 Glucose 74 - 99 mg/dL 95 96 108 (H) BUN 7 - 21 mg/dL 14 16 20 Creatinine 0.58 - 0.96 mg/dL 0.82 0.76 0.71 0.76 Sodium 136 - 144 mmol/L 141 137 140 Potassium 3.7 - 5.1 mmol/L 4.6 4.2 4.5 Chloride 97 - 105 mmol/L 100 99 100 CO2 22 - 30 mmol/L 28 26 28 Anion Gap 9 - 18 mmol/L 13 12 12 ALT 7 - 38 U/L 15 eGFR- ANDgt;60 ANDgt;60 ANDgt;60 ANDgt;60 eGFR-All Other Races . ANDgt;60 ANDgt;60 ANDgt;60 ANDgt;60 Color Yellow Red (A) Clarity Clear Cloudy (A) Glucose, Urine Negative mg/dL Negative Bilirubin, Urine Negative Negative Ketones, Urine Negative Negative Specific [place], Ur 1.005 - 1.030 1.016 Hemoglobin/Blood,Ur Negative 3+ (A) pH, Urine 4.5 - 8.0 5.0 Protein, Urine Negative mg/dL 100 (A) Urobilinogen Normal Normal Nitrites Negative Negative Leukest Negative 2+ (A) Comments SEE COMMENT Urine Sanket Comment SEE COMMENT WBC, Urine 0 - 5 /HPF 11-25 (A) RBC, Urine 0 - 3 /HPF ANDgt;25 (A) Epithelial Cells /HPF SEE COMMENT Triglyceride ANDlt;150 mg/dL 128 221 (H) 273 (H) 191 (H) Cholesterol, Total ANDlt;200 mg/dL 209 (H) 223 (H) 227 (H) 263 (H) HDL Cholesterol ANDgt;39 mg/dL 47 (L) 45 (L) 46 (L) 45 VLDL Cholesterol ANDlt;30 mg/dL 26 44 (H) 55 (H) 38 (H) LDL Cholesterol ANDlt;100 mg/dL 136 (H) 134 (H) 126 180 (H) Fasting Time hrs FASTING 13 12 10 TC:HDL Ratio ANDlt;5.10 4.45 4.96 4.93 5.84 (H) LDL:HDL Ratio ANDlt;2.54 2.89 2.98 2.74 4.00 (H) Non HDL Cholesterol ANDlt;130 mg/dL 162 (H) 178 (H) 181 (H) 218 (H) Vitamin D 25 Hydroxy 31.0 - 80.0 ng/mL 44.4 ASSESSMENT/PLAN: 1. Essential hypertension - ICD9: 401.9, ICD10: I10 (primary diagnosis) - good control - Continue current medication(s) - Encouraged dietary sodium restriction/DASH diet - Recommended regular aerobic exercise. - Reviewed risks of HTN and principles of treatment - Goal of BP ANDlt;140/90 2. Hyperlipidemia, mixed - ICD9: 272.2, ICD10: E78.2 - poor control - Begin treatment with pravastatin (Pravachol) 40 mg - Encouraged following a low fat, low cholesterol diet. - Discussed the benefits of regular aerobic exercise and weight loss. 3. Gross hematuria - ICD9: 599.71, ICD10: R31.0 Will have patient follow up with urology. Recheck UA. - URINALYSIS WITH MICROSCOPIC 4. Hydronephrosis, unspecified hydronephrosis type - ICD9: 591, ICD10: N13.30 Recommendations per urology. 5. Vitamin D deficiency - ICD9: 268.9, ICD10: E55.9 Continue vitamin D supplementation MD Julieth Farfan MD 09/06/2017 6:23 PM Signed Melatonin 5 mg nightly to help with sleep Referring Provider: NO PCP [[id number]] Allergies As of Date: 09/06/2017 Noted Allergy Reaction BEES 07/19/2005 CLINDAMYCIN 04/29/2011 2 - Rash IBUPROFEN 04/29/2011 2 - Rash LIPITOR (ATORVASTATIN CALCIUM) 07/19/2005 Comments: Leg weakness PENICILLINS 07/19/2005 2 - Rash Date Reviewed: 09/06/2017 Reviewed by: Irving Squires Ma - Fully Assessed Reason for Visit: transfer care [Other] Primary Visit Diagnosis:Essential hypertension [I10] Other Visit Diagnoses:Hyperlipidemia, mixed [E78.2] Gross hematuria [R31.0] Hydronephrosis, unspecified hydronephrosis type [N13.30] Vitamin D deficiency [E55.9] Order(s):pravastatin (PRAVACHOL) 40 mg tabletTake 1 tablet by mouth daily at bedtime.Disp: 30 tabletRfl: 6 LIPID PANEL BASIC [SQLIPB] Order #: [id number] FUTURE URINALYSIS WITH MICROSCOPIC [SQUAWMIC] Order #: [id number] Prescriptions as of 09/06/2017 Sig: ATENOLOL 50 MG TABLET take 1 tablet by mouth once d* * CHOLECALCIFEROL (VITAMIN D3) * Take 1 capsule by mouth twice* * ASPIRIN 81 MG TABLET Take one (1) tablet daily . PRAVASTATIN 40 MG TABLET Take 1 tablet by mouth daily * Problem List As Of Date 09/06/2017 Noted Resolved Essential hypertension [I10] More... Other and unspecified hyperlipidemia [E78.5] INVALID FOR*09/06/2017 More... Pain in Joint, Shoulder Region [M25.519] INVALID FOR*02/09/2010 Headache [R51] INVALID FOR*02/09/2010 SEBORRHEIC KERATOSIS NOS [L82.1] INVALID FOR* Vitamin d deficiency [E55.9] INVALID FOR* More... Elevated liver function tests [R79.89] INVALID FOR*02/13/2015 More... Giant comedone [L70.0] INVALID FOR* Hyperlipidemia, mixed [E78.2] INVALID FOR* Other instructions from your clinician: Melatonin 5 mg nightly to help with sleep Prescriptions ordered this encounter Disp Refills Start End PRAVASTATIN 40 MG TABLET 30 t* 6 09/06/2017 Route: ORAL Sig: Take 1 tablet by mouth daily at bedtime. Medications Discontinued During This Encounter VIT C/E/ZN/COPPR/LUTEIN/ZEAXAN (PRES* 09/06/2017 Class: Historical Med Route: ORAL Sig: Take by mouth. Disc: Reason for discontinue is not on file. Disposition: Return in about 6 months (around 03/09/2018). Follow-up and Disposition History Recorded Encounter Status:Closed by JULIETH EDDY MD on 09/06/17 PROGRESS Observed: 09/06/2017 Status: COMPLETED Source: [place] 5:59 PM [facility] REPOSITORY HNO ID: [id number] Author: Julieth Rose) [place] Service: (none) Author Type: Physician Type: Progress Notes Filed: 09/06/2017 7:08 PM Note Text: Chief Complaint Patient presents with: transfer care HPI Dian Domínguez is a 76 year old female who presents here today for transfer of care visit from Dr. Castañeda. Denies new complaints today. Patient has been seen recently for gross hematuria and was found to have hydronephrosis and ovarian cyst and has appointment scheduled with Dr. Cuevas next week. Hematuria stopped after single dose of abx, but patient was not found to have UTI. Finished full course of abx anyways. Discussed ordering repeat UA after seeing urology next week and will follow up their recommendations. Patient exercises on a regular basis with walking on a daily basis. Eats healthy diet with mostly home cooked meals, limited junk food, or fast food. Reviewed recent blood work which shows worsening cholesterol. Previously taking pravastatin which was stopped as they did not think it was having much effect. Would like to restart on previous dose. Up to date on . Past medical history, appointments, medications, allergies reviewed. 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 Previous Surgical History PAST SURGICAL HISTORY Procedure Laterality Date - COLONOSCOP W/ OR W/O [facility] SPEC 11/04/11 repeat 10 years - REMOVE TONSILS/ADENOIDS,<12 Y/O age 8 Family History FAMILY HISTORY Problem Relation Age of Onset - Hypertension - Diabetes Sister - Lipids - Lung Cancer [Other] [OTHER] Father - Coronary Artery Disease Father CABG >62 - Cancer Father Patient Allergies ALLERGIES Allergen Reactions - Bees - Clindamycin Rash - Ibuprofen Rash - Lipitor [Atorvastat* Leg weakness - Penicillins Rash Current Medications Current Outpatient Prescriptions on File Prior to Visit: atenolol (TENORMIN) 50 mg tablet take 1 tablet by mouth once daily Cholecalciferol, Vitamin D3, 1,000 unit ORAL Cap Take 1 capsule by mouth twice daily. ASPIRIN 81 MG TAB Take one (1) tablet daily . No current facility-administered medications on file prior to visit. 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 Admits to rare palpitations. GI: No nausea, vomiting, or diarrhea SKIN: Negative for lesions, rash, and itching EXAM: BP 138/74 Pulse 64 Resp 16 Ht 157.5 cm (5' 2) Wt 55.3 kg (122 lb) BMI 22.31 kg/m2 General Appearance: Well appearing, alert, in no acute distress, well-hydrated, well nourished.. Skin: Skin color, texture, turgor normal, no suspicious rashes or lesions. Head: Normocephalic, no masses, lesions, tenderness or abnormalities. Eyes: Anicteric sclera. Pupils are equally round and reactive to light. Extraocular movements are intact. . Ears: External ears normal, canals clear. Oropharynx: Lips, mucosa, and tongue normal, teeth and gums normal, oropharynx normal. Neck: Supple, no adenopathy; thyroid symmetric, normal size, no bruits. Lungs: Lungs clear to auscultation. No wheezing, rhonchi, rales. Heart: RRR without murmur, gallop, or rubs. No ectopy. Abdomen: Normal abdominal exam, Abdomen soft, non-tender. Bowel sounds normal. No masses, organomegaly. Extremities: No deformities, edema, skin discoloration, clubbing or cyanosis. Good capillary refill. . Health Maintenance List MAMMOGRAM due on 04/05/2018 DIABETES SCREEN due on 08/19/2020 COLORECTAL CANCER SCREENING,SEE MODIFIER due on 11/03/2021 LIPID SCREEN due on 08/23/2022 TETANUS due on 07/16/2023 BONE DENSITY Completed ADULT PREVNAR-13 Completed INFLUENZA Completed PNEUMOVAX AGE 65 AND OVER WITH 5YR LOOKBACK Completed Data reviewed Component Latest Ref Rng AND Units 06/17/2015 06/22/2016 01/10/2017 08/08/2017 08/16/2017 08/19/2017 08/23/2017 Protein, Total 6.3 - 8.0 g/dL 6.7 Albumin 3.9 - 4.9 g/dL 3.7 (L) Calcium 8.5 - 10.2 mg/dL 9.6 9.2 9.7 Bilirubin, Total 0.2 - 1.3 mg/dL 1.0 Alkaline Phosphatase 32 - 117 U/L 78 AST 13 - 35 U/L 18 Glucose 74 - 99 mg/dL 95 96 108 (H) BUN 7 - 21 mg/dL 14 16 20 Creatinine 0.58 - 0.96 mg/dL 0.82 0.76 0.71 0.76 Sodium 136 - 144 mmol/L 141 137 140 Potassium 3.7 - 5.1 mmol/L 4.6 4.2 4.5 Chloride 97 - 105 mmol/L 100 99 100 CO2 22 - 30 mmol/L 28 26 28 Anion Gap 9 - 18 mmol/L 13 12 12 ALT 7 - 38 U/L 15 eGFR- >60 >60 >60 >60 eGFR-All Other Races . >60 >60 >60 >60 Color Yellow Red (A) Clarity Clear Cloudy (A) Glucose, Urine Negative mg/dL Negative Bilirubin, Urine Negative Negative Ketones, Urine Negative Negative Specific [place], Ur 1.005 - 1.030 1.016 Hemoglobin/Blood,Ur Negative 3+ (A) pH, Urine 4.5 - 8.0 5.0 Protein, Urine Negative mg/dL 100 (A) Urobilinogen Normal Normal Nitrites Negative Negative Leukest Negative 2+ (A) Comments SEE COMMENT Urine Sanket Comment SEE COMMENT WBC, Urine 0 - 5 /HPF 11-25 (A) RBC, Urine 0 - 3 /HPF >25 (A) Epithelial Cells /HPF SEE COMMENT Triglyceride <150 mg/dL 128 221 (H) 273 (H) 191 (H) Cholesterol, Total <200 mg/dL 209 (H) 223 (H) 227 (H) 263 (H) HDL Cholesterol >39 mg/dL 47 (L) 45 (L) 46 (L) 45 VLDL Cholesterol <30 mg/dL 26 44 (H) 55 (H) 38 (H) LDL Cholesterol <100 mg/dL 136 (H) 134 (H) 126 180 (H) Fasting Time hrs FASTING 13 12 10 TC:HDL Ratio <5.10 4.45 4.96 4.93 5.84 (H) LDL:HDL Ratio <2.54 2.89 2.98 2.74 4.00 (H) Non HDL Cholesterol <130 mg/dL 162 (H) 178 (H) 181 (H) 218 (H) Vitamin D 25 Hydroxy 31.0 - 80.0 ng/mL 44.4 ASSESSMENT/PLAN: 1. Essential hypertension - ICD9: 401.9, ICD10: I10 (primary diagnosis) - good control - Continue current medication(s) - Encouraged dietary sodium restriction/DASH diet - Recommended regular aerobic exercise. - Reviewed risks of HTN and principles of treatment - Goal of BP <140/90 2. Hyperlipidemia, mixed - ICD9: 272.2, ICD10: E78.2 - poor control - Begin treatment with pravastatin (Pravachol) 40 mg - Encouraged following a low fat, low cholesterol diet. - Discussed the benefits of regular aerobic exercise and weight loss. 3. Gross hematuria - ICD9: 599.71, ICD10: R31.0 Will have patient follow up with urology. Recheck UA. - URINALYSIS WITH MICROSCOPIC 4. Hydronephrosis, unspecified hydronephrosis type - ICD9: 591, ICD10: N13.30 Recommendations per urology. 5. Vitamin D deficiency - ICD9: 268.9, ICD10: E55.9 Continue vitamin D supplementation Julieth Eddy MD CNPN Observed: 08/31/2017 Status: COMPLETED Source: [place] 12:00 AM [facility] REPOSITORY [facility] DIAN DOMÍNGUEZ V ([id number]) 1940 F Date Time Provider Department 08/31/17 JULIETH EDDY) [facility] During your visit today, we recorded the following information about you: Christie Celaya, RN, RN 08/31/2017 11:07 AM Signed [facility] requesting office notes, labs, radiology reports and current med list faxed to [phone]. Done. Allergies As of Date: 08/31/2017 Noted Allergy Reaction BEES 07/19/2005 CLINDAMYCIN 04/29/2011 2 - Rash IBUPROFEN 04/29/2011 2 - Rash LIPITOR (ATORVASTATIN CALCIUM) 07/19/2005 Comments: Leg weakness PENICILLINS 07/19/2005 2 - Rash Date Reviewed: 08/25/2017 Reviewed by: Edwige Joe - Fully Assessed Reason for Visit: Requesting information [Other] Prescriptions as of 08/31/2017 Sig: ATENOLOL 50 MG TABLET take 1 tablet by mouth once d* * CHOLECALCIFEROL (VITAMIN D3) * Take 1 capsule by mouth twice* * ASPIRIN 81 MG TABLET Take one (1) tablet daily . Problem List As Of Date 08/31/2017 Noted Resolved Essential hypertension [I10] More... HYPERLIPIDEMIA NEC/NOS [E78.5] INVALID FOR* More... Pain in Joint, Shoulder Region [M25.519] INVALID FOR*02/09/2010 Headache [R51] INVALID FOR*02/09/2010 SEBORRHEIC KERATOSIS NOS [L82.1] INVALID FOR* Vitamin d deficiency [E55.9] INVALID FOR* More... Elevated liver function tests [R79.89] INVALID FOR*02/13/2015 More... Giant comedone [L70.0] INVALID FOR* Encounter Status:Closed by CHRISTIE CELAYA on 08/31/17 PROGRESS Observed: 08/25/2017 Status: COMPLETED Source: [place] 11:20 AM [facility] REPOSITORY HNO ID: [id number] Author: Edwige Joe Service: (none) Author Type: (none) Type: Progress Notes Filed: 08/25/2017 11:21 AM Note Text: Radiology Service Progress Note PATIENT NAME: Dian Domínguez DATE OF SERVICE: August 25, 2017 TIME: 11:20 AM PATIENT IDENTITY VERIFICATION COMPLETED USING TWO (2) METHODS: Patient confirmed name verbally and Date of . PATIENT GENDER DATA: Female. status: : No status: NO. PATIENT RELEVANT IMPLANT DATA REVIEWED: Not Applicable CONTRAST INDUCED NEPHROPATHY RISK FACTORS: Patient age > 60 years CREATININE: Creatinine Date Value Ref Range Status 08/19/2017 0.76 0.58 - 0.96 mg/dL Final 08/16/2017 0.71 0.58 - 0.96 mg/dL Final 06/22/2016 0.76 0.58 - 0.96 mg/dL Final eGFR-All Other Races Date Value Ref Range Status 08/19/2017 >60 . Final Comment: eGFR (Estimated GFR) Units of measure: mL/min/1.73 meters squared eGFR is derived from the reexpressed MDRD Study equation using the following parameters: serum creatinine, age, gender and race. The creatinine assay has been calibrated to be traceable to IDMS. An eGFR <60 mL/min/1.73m2 for >3 months is consistent with chronic kidney disease. Refer to KDOQI guidelines for clinical interpretation. In patients with unstable renal function, e.g. those with acute kidney injury, the eGFR may not accurately reflect actual GFR. eGFR- Date Value Ref Range Status 08/19/2017 >60 Final P.O.C.T. RESULTS: POC done: Yes, See Lab Tab August 25, 2017 RADIOLOGIST NOTIFIED?: No ALLERGIES: Reviewed and unchanged CONTRAST ALLERGY: NO. PERIPHERAL IV ACCESS: Ambulatory: IV type: A peripheral IV was started in the Left antecubital site with a Angio cath: 22 gauge., Site assessment: Clean,Dry and Intact, Site disposition Discontinued RADIOLOGY DEPARTMENT: CT; Exam(s) Completed: Abdomen/Pelvis SIGNED BY: Edwige Joe August 25, 2017 11:[address] ABD/PEL W IVCON Observed: 08/25/2017 Status: F Source: [place] SETTLEMENT 11:05 AM [facility] REPOSITORY * * *Final Report* * * DATE OF EXAM: Aug 25 2017 11:05AM [facility] 0530 - CT ABD/PEL W IVCON / PROCEDURE REASON: multiple diagnoses * * * * Physician Interpretation * * * * EXAMINATION: CT ABDOMEN AND PELVIS WITH IV CONTRAST CLINICAL HISTORY: Hematuria. Left adnexal mass on recent ultrasound TECHNIQUE: CT of the abdomen and pelvis was performed using standard technique, scanning from just above the dome of the diaphragm to the symphysis pubis. MQ: CTAP_3 Contrast: IV: 109 ml of Omnipaque 300 Oral: 50 ml of 50ML Omnipaque [address] Radiation dose: Integrated Dose-length product (DLP) for this visit = 278 mGy*cm. CT Dose Reduction Employed: Automated exposure control (AEC) COMPARISON: Ultrasound of kidneys 08/11/2017 RESULT: Liver: No mass. Biliary: No bile duct dilation. Gallbladder is unremarkable. Spleen: No mass. No splenomegaly. Pancreas: No mass or duct dilation. Adrenals: No mass. Kidneys: Bilateral hydronephrosis with normal caliber ureters versus confluent parapelvic cysts. 5 mm lower pole calcification on the LEFT within one of these fluid attenuation structures indicating that it is likely a dilated lower pole collecting system containing a calculus. Subcentimeter lesions are present in both kidneys which are too small to accurately characterize, but likely represent cysts. GI tract: No dilation or wall thickening. Small hiatal hernia. Lymph nodes: No abdominal or pelvic lymphadenopathy. Mesentery/Peritoneum: No ascites or mass. Retroperitoneum: No mass. Vasculature: The celiac axis and SMA are patent. The portal vein and branches, splenic vein, SMV, and hepatic veins are patent. There is calcification of the aorta and iliac arteries, without aneurysm. Pelvis: 5.6 x 4.7 cm simple appearing cystic mass in the LEFT adnexa corresponding to the sonographic abnormality, which measured 5.8 x 4.8 cm and also appears simple. No other pelvic mass. No ascites or fluid collection. Calcified uterine fibroid. Normal RIGHT ovary seen. Normal bladder wall thickness. Bones/Soft Tissues: No acute abnormality Lower thorax: The lower thorax is unremarkable. IMPRESSION: 5.6 CM SIMPLE APPEARING LEFT OVARIAN CYSTIC MASS, MOST LIKELY BENIGN BUT RECOMMEND 6 MONTH FOLLOW-UP BILATERAL HYDRONEPHROSIS VERSUS CONFLUENT PARAPELVIC CYSTS, 5 MM LEFT LOWER POLE CALCULUS Intelligence Senior Sergeant: SARINA Transcribe Date/Time: Aug 25 2017 2:58P Dictated by : JANETTE RICH MD This examination was interpreted and the report reviewed and electronically signed by: JANETTE RICH MD on Aug 25 2017 3:05PM EST [id number] LIPID PANEL, BASIC Collected: 08/23/2017 Status: F Source: [place]LEMENT 8:59 AM [facility] REPOSITORY TYPE CODE TESTS RESULT OUT OF REFERENCE UNITS RANGE LAB CHOL <200 mg/dL Cholesterol High 263 Result Comment: <200 mg/dL, Desirable 200-239 mg/dL, Borderline high >239 mg/dL, High LAB TRIGLY <150 mg/dL Triglyceride High 191 Result Comment: <150 mg/dL, Normal 150-199 mg/dL, Borderline high 200-499 mg/dL, High >499 mg/dL, Very high LAB HDL >39 mg/dL HDL-Cholesterol 45 Result Comment: 40-59 mg/dL, Acceptable >59 mg/dL, High: Negative risk factor for coronary heart disease <40 mg/dL, Low: Positive risk factor for coronary heart disease LAB LDL <100 mg/dL LDL-Cholesterol High 180 Result Comment: <100 mg/dL, Optimal 100-129 mg/dL, Near optimal/above optimal 130-159 mg/dL, Borderline high 160-189 mg/dL, High >189 mg/dL, Very high Secondary prevention optimal LDL Cholesterol levels are recommended to be < 70 mg/dL LAB NONHDL <130 mg/dL Non HDL High Cholesterol 218 Result Comment: <130 mg/dL, Optimal 130-159 mg/dL, Near optimal/above optimal 160-189 mg/dL, Borderline high 190-219 mg/dL, High >219 mg/dL, Very high Secondary prevention optimal non HDL Cholesterol levels are recommended to be < 100 mg/dL LAB FT hrs Fasting Time 10 LAB VLDL <30 mg/dL High VLDL Cholesterol 38 LAB TCHDL <5.10 High TC:HDL Ratio 5.84 LAB LDLHDL <2.54 High LDL:HDL Ratio 4.00 Result Comment: Reference: 1. National Cholesterol Education Program ATP III Guideline At-A-Glance Quick Desk Reference: National Heart, Lung, and Blood [place]. National Institutes of Health. 2001: NIH Publication No. 01-3305. 2. An International Atherosclerosis Society position paper: global recommendations for the management of dyslipidemia: executive summary, Atherosclerosis. 2014: 232(2):410-413. Performed By: #### LIPB #### [facility] [address] [place], [place] [address] PROGRESS Observed: 08/22/2017 Status: COMPLETED Source: [place]LEMENT 1:01 PM [facility] REPOSITORY HNO ID: [id number] Author: Breanna Alatorre LPN Service: (none) Author Type: (none) Type: Progress Notes Filed: 08/22/2017 1:14 PM Note Text: Manual Readin/72 Pulse: 72 Reason for blood pressure check - Last BP elevated Patient is: Taking medication as prescribed Yes Took medication today No ( takes in evening) If no, date medication last taken N/A Experiencing side effects No BP was elevated at last appt 08/08/17. No BP medication changes were made at that time. Taking all medications as prescribed. Home BP ranges have been 114-139/68-80 (did not bring home monitor today). Denies any chest pain, shortness of breath, dizziness, or headaches. Daily caffeine use with iced tea. No personal history of tobacco use; current passive exposure. Alert and oriented. Pt has been identified by name and birthdate: Yes Allergies reviewed: Yes Latex allergy: no. Medication - prescribed and OTC reviewed and updated: Yes Do you need any prescription refills prior to your next visit: No Health Maintenance: Reviewed and not up to date and provider notified Patient advised to continue with current medications and would be contacted with any further instructions after review by PCP. Breanna Alatorre LPN CNNURSE Observed: 08/22/2017 Status: COMPLETED Source: [place] SET[place]LEMENT 1:00 PM [facility] REPOSITORY Nurse Visit ([facility]) DIAN DOMÍNGUEZ V ([id number]) 1940 F Date Time Provider Department 08/22/17 1:00 PM [place] [facility] During your visit today, we recorded the following information about you: Pulse Blood pressure 72/minute 134/72 Breanna Alatorre LPN 08/22/2017 1:14 PM Signed Manual Readin/72 Pulse: 72 Reason for blood pressure check - Last BP elevated Patient is: Taking medication as prescribed Yes Took medication today No ( takes in evening) If no, date medication last taken N/A Experiencing side effects No BP was elevated at last appt 08/08/17. No BP medication changes were made at that time. Taking all medications as prescribed. Home BP ranges have been 114-139/68-80 (did not bring home monitor today). Denies any chest pain, shortness of breath, dizziness, or headaches. Daily caffeine use with iced tea. No personal history of tobacco use; current passive exposure. Alert and oriented. Pt has been identified by name and birthdate: Yes Allergies reviewed: Yes Latex allergy: no. Medication - prescribed and OTC reviewed and updated: Yes Do you need any prescription refills prior to your next visit: No Health Maintenance: Reviewed and not up to date and provider notified Patient advised to continue with current medications and would be contacted with any further instructions after review by PCP. Breanna Alatorre LPN Referring Provider: JULIETH EDDY) [[id number]] Allergies As of Date: 08/22/2017 Noted Allergy Reaction BEES 07/19/2005 CLINDAMYCIN 04/29/2011 2 - Rash IBUPROFEN 04/29/2011 2 - Rash LIPITOR (ATORVASTATIN CALCIUM) 07/19/2005 Comments: Leg weakness PENICILLINS 07/19/2005 2 - Rash Date Reviewed: 08/15/2017 Reviewed by: Edwige Anguiano Ct - Fully Assessed Reason for Visit: Blood Pressure Check [195] Primary Visit Diagnosis:Essential hypertension [I10] Prescriptions as of 08/22/2017 Sig: ATENOLOL 50 MG TABLET take 1 tablet by mouth once d* * CHOLECALCIFEROL (VITAMIN D3) * Take 1 capsule by mouth twice* * ASPIRIN 81 MG TABLET Take one (1) tablet daily . Problem List As Of Date 08/22/2017 Noted Resolved Essential hypertension [I10] More... HYPERLIPIDEMIA NEC/NOS [E78.5] INVALID FOR* More... Pain in Joint, Shoulder Region [M25.519] INVALID FOR*02/09/2010 Headache [R51] INVALID FOR*02/09/2010 SEBORRHEIC KERATOSIS NOS [L82.1] INVALID FOR* Vitamin d deficiency [E55.9] INVALID FOR* More... Elevated liver function tests [R79.89] INVALID FOR*02/13/2015 More... Yovanny rm [L70.0] INVALID FOR* Encounter Status:Closed by BREANNA ALATORRE LPN on 08/22/17 BASIC METABOLIC PANL Collected: 08/19/2017 Status: F Source: [place] 7:42 AM [facility] REPOSITORY TYPE CODE TESTS RESULT OUT OF REFERENCE UNITS RANGE LAB GLU 74-99 mg/dL High Glucose 108 Result Comment: The [place] Diabetes Association (ADA) provides guidance for cutoff values for fasting glucose and random glucose. The ADA defines fasting as no caloric intake for at least 8 hours. Fas ting plasma glucose results between 100 to 125 mg/dL indicate increased risk for diabetes (prediabetes). Fasting plasma glucose results greater than or equal to 126 mg/dL meet the criteria for diagnosis of diabetes. In the absence of unequivocal hyperglycemia, results should be confirmed by repeat testing. In a patient with classic symptoms of hyperglycemia or hyperglycemic crisis, random plasma glucose results greater than or equal to 200 mg/dL meet the criteria for diagnosis of diabetes. Reference: Standards of Medical Care in Diabetes 2016, [place] Diabetes Association. Diabetes Care. 2016.39(Suppl 1). LAB BUN 7-21 mg/dL BUN 20 LAB CRET 0.58-0.96 mg/dL Creatinine 0.76 LAB NA 136-144 mmol/L Sodium 140 LAB K 3.7-5.1 mmol/L Potassium 4.5 LAB CL 97-105 mmol/L Chloride 100 LAB CO2 22-30 mmol/L CO2 28 LAB AGAP 9-18 mmol/L Anion Gap 12 LAB CA 8.5-10.2 mg/dL Calcium, Total 9.7 LAB GFRAA eGFR- Amer. >60 LAB GFRNAA . eGFR-All Other Races >60 Result Comment: eGFR (Estimated GFR) Units of measure: mL/min/1.73 meters squared eGFR is derived from the reexpressed MDRD Study equation using the following parameters: serum creatinine, age, gender and race. The creatinine assay has been calibrated to be traceable to IDMS. An eGFR <60 mL/min/1.73m2 for >3 months is consistent with chronic kidney disease. Refer to KDOQI guidelines for clinical interpretation. In patients with unstable renal function, e.g. those with acute kidney injury, the eGFR may not accurately reflect actual GFR. Performed By: #### BMP #### [facility] [address] [place], [place] [address] CREATININE Collected: 08/16/2017 Status: F Source: [place] 9:10 AM [facility] REPOSITORY TYPE CODE TESTS RESULT OUT OF REFERENCE UNITS RANGE LAB CRET 0.58-0.96 mg/dL Creatinine 0.71 LAB GFRAA eGFR- >60 Amer. LAB GFRNAA . eGFR-All Other Races >60 Result Comment: eGFR (Estimated GFR) Units of measure: mL/min/1.73 meters squared eGFR is derived from the reexpressed MDRD Study equation using the following parameters: serum creatinine, age, gender and race. The creatinine assay has been calibrated to be traceable to IDMS. An eGFR <60 mL/min/1.73m2 for >3 months is consistent with chronic kidney disease. Refer to KDOQI guidelines for clinical interpretation. In patients with unstable renal function, e.g. those with acute kidney injury, the eGFR may not accurately reflect actual GFR. Performed By: #### CRET1 #### [facility] [address] [place], [place] [address] US KIDNEY/BLADDER Observed: 08/11/2017 Status: F Source: [place]LEMENT 2:29 PM [facility] REPOSITORY * * *Final Report* * * DATE OF EXAM: Aug 11 2017 2:29PM [facility] 1055 - US KIDNEY/BLADDER / PROCEDURE REASON: Gross hematuria * * * * Physician Interpretation * * * * EXAMINATION: RENAL ULTRASOUND HISTORY: Gross hematuria TECHNIQUE: Sonography of the kidneys and urinary bladder was performed. Images were obtained and stored in a permanent archive. M: [id number] COMPARISON: None RESULT: Right Kidney: -Renal length: 10.6 cm -Parenchyma: Normal parenchymal echogenicity. Normal parenchymal thickness. -Collecting system: Somewhat difficult to assess. There is a density in the RIGHT central pelvis about 1.8-2.4 cm in diameter without definite continuity with the collecting system. This could represent a parapelvic cyst or prominent renal pelvis. Slight prominence collecting system in the upper and lower pole. -Calculus: No echogenic, shadowing calculus. -Lesion: None. Left Kidney: -Renal length: 12.2 cm -Parenchyma: Normal parenchymal echogenicity. Normal parenchymal thickness. -Collecting system: Mild distention LEFT renal collecting system including renal pelvis. The findings persist after voiding -Calculus: No echogenic, shadowing calculus. -Lesion: None. Bladder: Contiguous to the LEFT side the urinary bladder is a rounded anechoic density measuring 5.8 x 4.8 x 5.4 cm in diameter. No continuity with the lumen of the urinary bladder is evident. Bladder is otherwise unremarkable with postvoid imaging demonstrating near complete bladder emptying. No pelvic free fluid is evident IMPRESSION: 4.8-5.8 CM LEFT ADNEXAL CYSTIC MASS SUGGESTING OVARIAN CYST. RECOMMEND CORRELATION WITH TRANSVAGINAL ULTRASOUND FOR FURTHER CHARACTERIZATION. BORDERLINE PROMINENT LEFT RENAL COLLECTING SYSTEM. BORDERLINE PROMINENT RIGHT RENAL COLLECTING SYSTEM VERSUS PROMINENT CENTRAL PARAPELVIC CYST WITH UPPER POLE LOWER POLE COLLECTING SYSTEM UPPER RANGE NORMAL. Intelligence Senior Sergeant: SARINA Transcribe Date/Time: Aug 11 2017 4:41P Dictated by : GARFIELD MCCABE MD This examination was interpreted and the report reviewed and electronically signed by: GARFIELD MCCABE MD on Aug 11 2017 4:50PM EST [id number] PROGRESS Observed: 08/11/2017 Status: COMPLETED Source: [place] 1:47 PM [facility] REPOSITORY O ID: [id number] Author: Kecia Bean Service: (none) Author Type: (none) Type: Progress Notes Filed: 08/11/2017 2:31 PM Note Text: Radiology Service Progress Note PATIENT NAME: Dian Domínguez DATE OF SERVICE: August 11, 2017 TIME: 1:47 PM PATIENT IDENTITY VERIFICATION COMPLETED USING TWO (2) METHODS: Patient confirmed name verbally and Date of . PATIENT GENDER DATA: Female. status: : No status: NO. PATIENT RELEVANT IMPLANT DATA REVIEWED: Yes RADIOLOGY DEPARTMENT: Ultrasound PERIPHERAL IV DATA: Not applicable SIGNED BY: Kecia Bean August 11, 2017 1:47 PM CNPTOUTREACH Observed: 08/09/2017 Status: COMPLETED Source: [place] 12:00 AM [facility] REPOSITORY Patient Outreach (INTMWH) GABBYDIAN Barfield ([id number]) 1940 F Date Time Provider Department 08/09/17 [facility] During your visit today, we recorded the following information about you: Allergies As of Date: 08/09/2017 Noted Allergy Reaction BEES 07/19/2005 CLINDAMYCIN 04/29/2011 2 - Rash IBUPROFEN 04/29/2011 2 - Rash LIPITOR (ATORVASTATIN CALCIUM) 07/19/2005 Comments: Leg weakness PENICILLINS 07/19/2005 2 - Rash Date Reviewed: 08/08/2017 Reviewed by: Shanta Chahal (Echocardiography Tech) JORDAN Hartman - Fully Assessed Visit Diagnosis:Medication management [Z79.899] Order(s):BASIC METABOLIC PNL [SQBMP] Order #: [id number] FUTURE Prescriptions as of 08/09/2017 Sig: NITROFURANTOIN MONOHYDRATE AND * Take 1 capsule by mouth twice* X ATENOLOL 50 MG TABLET take 1 tablet by mouth once d* * CHOLECALCIFEROL (VITAMIN D3) * Take 1 capsule by mouth twice* * ASPIRIN 81 MG TABLET Take one (1) tablet daily . Problem List As Of Date 08/09/2017 Noted Resolved Essential hypertension [I10] More... HYPERLIPIDEMIA NEC/NOS [E78.5] INVALID FOR* More... Pain in Joint, Shoulder Region [M25.519] INVALID FOR*02/09/2010 Headache [R51] INVALID FOR*02/09/2010 SEBORRHEIC KERATOSIS NOS [L82.1] INVALID FOR* Vitamin d deficiency [E55.9] INVALID FOR* More... Elevated liver function tests [R94.5] INVALID FOR*02/13/2015 More... Giant comedone [L70.0] INVALID FOR* Encounter Status:Closed by LINDSEY PRODUSER on 03/24/18 URINALYSIS WITH Collected: 08/08/2017 Status: F Source: [facility] 3:49 PM [facility] REPOSITORY TYPE CODE TESTS RESULT OUT OF RANGE REFERENCE UNITS LAB UCOL Yellow Color Abnormal Red Alert LAB [facility] Clear Clarity Abnormal Cloudy Alert LAB UGLUC Negative mg/dL Glucose, Urine Negative LAB UBIL Negative Bilirubin, Urine Negative LAB UKET Negative Ketones, Urine Negative LAB [facility] 1.005-1.030 Specific [place], Ur 1.016 LAB UHGB Negative Abnormal Hemoglobin/Blood, 3+ Alert Ur LAB UPH 4.5-8.0 pH 5.0 LAB UPROT Negative mg/dL Protein, Abnormal Urine 100 Alert LAB UUROB Normal Urobilinogen Normal LAB UNITR Negative Nitrites Negative LAB ULKEST Negative Leukest Abnormal 2+ Alert LAB UCOM Comments SEE COMMENT Result Comment: N/A LAB UMCOM Urine SEE Sanket Comment COMMENT Result Comment: N/A LAB UWBC 0-5 /HPF Abnormal WBC Alert 11-25 LAB URBC 0-3 /HPF Abnormal RBC Alert >25 LAB UEPI /HPF Epithelial Cells SEE COMMENT Result Comment: Few Squamous Epithelial Cells Performed By: #### UAWMIC #### [facility] [address] [address] Observed: 08/08/2017 Status: F Source: [place] URINE CULTURE 3:49 PM [facility] REPOSITORY Sp. Request/Comment: - Specimen received in preservative Culture Result - <10,000 CFU/ml Normal urogenital mohsen Performed By: #### URCUL #### [facility] [employer] [address] [address] PROGRESS Observed: 08/08/2017 Status: COMPLETED Source: [place] 3:21 PM [facility] REPOSITORY HNO ID: [id number] Author: Alana (Juanita Lemons Service: (none) Author Type: Nurse Practitioner Type: Progress Notes Filed: 08/08/2017 3:52 PM Note Text: 08/08/2017 Patient presents with: Hematuria: gross hematuria, started yesterday no other symptoms noted. SUBJECTIVE: This is a 76 year old that is here today for Above Complaints. She states that she has never had this happen before and she has never had a UTI. She noticed blood in urine yesterday. No fever, chills, urgency, frequency, burning, or flank pain. She drinks water throughout the day and drinks cranberry juice daily. HTN: Ms. Domínguez indicates that she is feeling well and denies any symptoms referable to elevated blood pressure. Specifically denies headache, chest pain, palpitations, dyspnea and peripheral edema. Patient denies any side effects of her medication(s) and is compliant with their regimen. She does check BP's away from this office with average BP's in the 130s-150s/60-80s range lately. She admits to some increased stress with her mother in assisted living and not being sure how her health will be doing being 89 years old. She watches her diet for sodium, low fat and low cholesterol most of the time. Last 3 Encounter BP Readings: Date: BP: 08/08/2017 140/70 01/13/2017 112/62 06/24/2016 122/60 PAST MEDICAL HISTORY Diagnosis Date - Diverticulosis of colon (without mention of hemorrhage) - Internal hemorrhoids without mention of complication - Pure hypercholesterolemia - Tachycardia, unspecified - Unspecified essential hypertension - Unspecified monoarthritis, hand 07/20/2005 ALLERGIES Bees; Clindamycin; Ibuprofen; Lipitor [Atorvastatin Calcium]; Penicillins MEDICATIONS Current Outpatient Prescriptions: atenolol (TENORMIN) 50 mg tablet take 1 tablet by mouth once daily Cholecalciferol, Vitamin D3, 1,000 unit ORAL Cap Take 1 capsule by mouth twice daily. ASPIRIN 81 MG TAB Take one (1) tablet daily . No current facility-administered medications for this visit. Medications and allergies reviewed by this provider. SOCIAL HISTORY Social History Marital status: Spouse name: Years of education: Number of children: Occupational History Occupation Employer Comment [employer] retired January 2012 Social History Main Topics Smoking status: Never Smoker Smokeless status: Never Used Alcohol use: Yes Comment: occasionally Drug use: No Sexual activity: Yes Partners with: Male Comment: burning after intercourse Social History Narrative [facility] REVIEW OF SYSTEMS GENERAL: No weight loss, malaise or fevers RESPIRATORY: Negative for cough, hemoptysis, wheezing, COPD, dyspnea or shortness of breath CARDIOVASCULAR: Negative for chest pain, leg swelling, hypertension, CHF or palpitations GI: No nausea, vomiting, or diarrhea : + blood in urine. No history of dysuria, frequency or incontinence, See HPI OBJECTIVE: BP 140/70 (BP Site: Left Arm, BP Position: Sitting, BP Cuff Size: Regular Adult) Pulse 80 Resp 18 Wt 55.8 kg (123 lb 1.9 oz) BMI 22.89 kg/m2. Vital signs reviewed by this provider. PHYSICAL EXAMINATION: General appearance: Well appearing, alert, in no acute distress, well-hydrated, well nourished. Skin: left inner buttock with firm tender small nodule, slightly red at the top, scabbing to top, but appears to be hair follicle, no drainage, open area, heat to touch Lungs: Lungs clear to auscultation. No wheezing, rhonchi, rales Heart: RRR without murmur, gallop, or rubs. No ectopy Abdomen: Negative CVA tenderness ASSESSMENT/PLAN: 1. Gross hematuria - ICD9: 599.71, ICD10: R31.0 (primary diagnosis) - with positive leuks would like to treat as UTI. Discussed that if no improvement with antibiotic would like to have US kidney and bladder to look further into possible cause. - UA DIP B/O - URINE CULTURE - URINALYSIS WITH MICROSCOPIC 2. Urine leukocytes - ICD9: 791.7, ICD10: R82.99 - see above 3. Folliculitis - ICD9: 704.8, ICD10: L73.9 - warm moist heat - discouraged picking at it - continue to monitor and follow up if no improvement or worsening symptoms. 4. Essential hypertension - ICD9: 401.9, ICD10: I10 - suboptimal control- may be related to acute urinary concern, do not want to add any medication at this time, will re-evaluate in 2 weeks - Continue current medication(s) - Encouraged dietary sodium restriction/DASH diet - Recommended regular aerobic exercise. - Recommend home blood pressure monitoring, to bring results in on next visit - Recheck in 2 weeks with nurse visit, sooner should new symptoms or problems arise. - Goal of BP <140/90 - Recommended no refined sugar, low refined starch, healthy oil intake (olive oil), healthy protein (fish) along the lines of the Mediterranean diet. She states that she is current on mammogram and will be establishing with Dr. Eddy in about 1 month. Alana Lemons CNP ALLERGIES ALLERGIES DATE TYPE / CODE NAME / CODE REACTION SEVERITY SOURCE 06/19/2018 Drug Penicillins/[id number] Rash Unknown [place] Allergy/416 476(RXNORM) [facility] 064845([facility] ED CT) Repository 06/19/2018 Drug ibuprofen/[id number] Diarrhea Unknown [place] Allergy/416 7(RXNORM) Community 209852([facility] ED CT) Repository 06/19/2018 Drug clindamycin/R196099 Diarrhea Unknown [place] Allergy/416 794(RXNORM) Community 248251([facility] ED CT) Repository 06/19/2018 Drug atorvastatin/I54776 Other Unknown [place] Allergy/416 6321(RXNORM) Community 495170([facility] ED CT) Repository 06/19/2018 Drug bee Rash Unknown [place] Allergy/416 pollen/[id number](R Community 790751([facility] ED CT) Repository 04/29/2011 DRUG CLINDAMYCIN RASH [facility] INGREDI/[address] [place] 664925(SNOM Repository ED CT) 04/29/2011 DRUG IBUPROFEN RASH [facility] INGREDI/[address] [place] 697673(SNOM Repository ED CT) 07/19/2005 Environ/420 BEES [facility] 687612([facility] [address] [place] ED [place]) Repository 07/19/2005 DRUG ATORVASTATIN [facility] INGREDI/419 CALCIUM [address] [place] 005128(SNOM Repository ED CT) 07/19/2005 Drug PENICILLINS RASH [facility] Class/65664 [address] [place] 1003(SNOMED Repository CT) ENCOUNTERS ENCOUNTERS ADMIT/DISCHARGE ACCOUNT ADMITTING ENCOUNTER LOCATION SOURCE NUMBER CLASS 06/23/2018/06/23/[id number] ing:SDCRoom: Repository AC15 06/19/2018 [id number] [facility] ing:OPBI Repository 06/01/2018 [id number] Ambulatory BMSBuilding:W [facility] Repository 05/29/2018 [id number] Ambulatory [facility] ing:RAD Repository 05/25/2018 [id number] [facility] ing:CT Repository 05/15/2018 [id number] [facility] ing:LABSPEC Repository 03/16/2018/03/16/20 [id number] Ambulatory [address] [place] Repository 03/09/2018/03/10/20 [id number] Ambulatory [facility] [address] [place] Repository 03/03/2018/03/03/20 [id number] Ambulatory [address] Repository 02/15/2018/02/18/20 [id number] Ambulatory [address] Repository 01/30/2018/02/01/20 [id number] Ambulatory [address] Repository 01/02/2018/01/03/20 [id number] Ambulatory [address] Hospital ing:SDCRoom: Repository AC02 2017 [id number] Ambulatory BMSBuilding:W [facility] Repository 11/21/2017 [id number] Ambulatory [facility] ing:WOBLAB Repository 11/02/2017/11/03/19 [id number] Ambulatory [address] ing:SDC Repository 10/19/2017 [id number] Ambulatory [facility] ing:CT Repository 10/10/2017 [id number] Ambulatory [facility] ing:LABSPEC Repository 09/06/2017/09/08/19 [id number] Ambulatory [address] Repository 08/25/2017/08/27/19 [id number] Ambulatory [address] Repository 08/25/2017/08/26/19 [id number] Ambulatory [address] Repository 08/22/2017/08/24/19 [id number] Ambulatory [address] Repository 08/19/2017/08/20/19 [id number] Ambulatory [address] Repository 08/16/2017/08/17/19 [id number] Ambulatory [address] Repository 08/11/2017/08/12/19 [id number] Ambulatory [address] Repository 08/08/2017/08/08/19 [id number] Ambulatory [address] Repository 08/08/2017/08/10/19 [id number] Ambulatory [address] Repository PAYERS PAYERS ENCOUNTER GUARANTOR PAYER SUBSCRIBER SOURCE 06/23/2018 DIAN [place] Primary DIAN [id number] Insurance:MEDICARE STEWARTDOB: Critical access hospital PART A [id number] [place] [facility] Repository [address]Rde: 330 [id number] [phone] () Date:2018-05-30 06/23/2018 Secondary DIAN V [place] Insurance:CIGNAPolicy STEWARTDOB: Community Number: [id number] Hospital [id number] Repository Date:7847-96-25RL [address]ZCNE[address]P[place]VM, [place] [address]LI: 06/23/2018 Tertiary NOT GIVENUNK [place] Insurance:SELF PAY [facility] Effective Repository Date:2018-05-30 06/19/2018 DIAN V Primary DIAN V [place] [id number] Insurance:MEDICARE STEWARTDOB: Community AJAY PART A [id number] [place] Number: Repository [address]Nrc: 330 [id number] [phone] () Date:2018-03-09 06/19/2018 Secondary DIAN V [place] Insurance:CIGNAPolicy STEWARTDOB: Community Number: [id number] Hospital [id number] Repository Date:6775-86-29IV [address]NJGT[address], [place] [address]XN: 06/19/2018 Tertiary NOT GIVENUNK [place] Insurance:SELF PAY [facility] Number: Effective Repository Date:2018-03-09 06/01/2018 DIAN V Primary DIAN V [place] [id number] Insurance:MEDICARE STEWARTDOB: Community AJAY PART A [id number] [place] [facility] Repository [address]Dya: 330 [id number] [phone] () Date:2018-03-09 06/01/2018 Secondary DIAN V [place] Insurance:CIGNAPolicy STEWARTDOB: Community Number: [id number] Hospital [id number] Repository Date:7981-05-29XT [address]HWMYYDAWGYL, [place] [address]SG: 06/01/2018 Tertiary NOT GIVENUNK [place] Insurance:SELF PAY [facility] Number: Effective Repository Date:2018-06-01 05/29/2018 DIAN V Primary DIAN V [place] [id number] Insurance:MEDICARE STEWARTDOB: Community AJAY PART A [facility] [id number] Number: Repository [address]Olw: 330 [id number] [phone] () Date:2018-05-29 05/29/2018 Secondary DIAN V [place] Insurance:CIGNAPolicy STEWARTDOB: Community Number: [id number] Hospital [id number] Repository Date:9779-01-89RP [address]ZBDNZZNKAUE, [place] [address]AW: 05/29/2018 Tertiary NOT GIVENUNK Jaden Insurance:SELF PAY [facility] Number: Effective Repository Date:2018-05-29 05/25/2018 DIAN V Primary DIAN V [place] [id number] Insurance:MEDICARE STEWARTDOB: Community AJAY PART A [facility] [id number] Number: Repository [address]Uof: 330 [id number] [phone] () Date:2018-05-19 05/25/2018 Secondary DIAN V [place] Insurance:CIGNAPolicy STEWARTDOB: Community Number: [id number] Hospital [id number] Repository Date:3996-94-59BG [address]UYYFYVRNDHD, [place] [address]NT: 05/25/2018 Tertiary NOT GIVENUNK [place] Insurance:SELF PAY [facility] Number: Effective Repository Date:2018-05-19 05/15/2018 DIAN V Primary DIAN V [place] [id number] Insurance:MEDICARE STEWARTDOB: Community AJAY PART A [facility] [id number] Number: Repository [address]Aze: 330 [id number] [phone] () Date:2018-05-15 05/15/2018 Secondary DIAN V [place] Insurance:CIGNAPolicy STEWARTDOB: Community Number: [id number] Hospital [id number] Repository Date:0122-35-12EJ [address]GDAA[address]OX[address], [place] [address]FB: 05/15/2018 Tertiary NOT GIVENUNK [place] Insurance:SELF PAY [facility] Number: Effective Repository Date:2018-05-15 01/02/2018 DIAN V Primary DIAN V [place]aden [id number] Insurance:MEDICARE STEWARTDOB: Community AJAY PART A [facility] [id number] [place] Number: Repository [address]Umo: 330 [id number] [phone] () Date:2017-12-12 01/02/2018 Secondary DIAN V [place] Insurance:CIGNAPolicy STEWARTDOB: Community Number: [id number] Hospital [id number] Repository Date:7999-69-41[address]BHDFYFKZLNX, [place] [address]JZ: 01/02/2018 Tertiary NOT GIVENUNK [place] Insurance:SELF PAY [facility] Number: Effective Repository Date:2017-12-12 2017 DIAN V Primary DIAN V Jaden [id number] Insurance:MEDICARE STEWARTDOB: Community AJAY PART A [facility] [id number] [place] Number: Repository [address]Ovq: 330 [id number] [phone] () Date:2017-12-12 2017 Secondary DIAN V [place] Insurance:CIGNAPolicy STEWARTDOB: Community Number: [id number] Hospital [id number] Repository Date:9785-58-62EN [address]PREKBRBBXVI, [place] [address]NM: 2017 Tertiary NOT GIVENUNK [place] Insurance:SELF PAY [facility] Number: Effective Repository Date:2017 11/21/2017 DIAN V Primary DIAN V J[place] [id number] Insurance:MEDICARE STEWARTDOB: Community AJAY PART A [facility] [id number] [facility] [place] Number: Repository [address]Cub: [phone] [id number] [phone] () Date:2017-11-21 11/21/2017 Secondary DIAN V [place] Insurance:CIGNAPolicy STEWARTDOB: Community Number: [id number] Hospital [id number] Repository Date:5804-56-09NZ [address]KNWWUMNYSZW, [place] [address]QU: 11/21/2017 Tertiary NOT GIVENUNK Jaden Insurance:SELF PAY [facility] Number: Effective Repository Date:2017-11-21 11/02/2017 DIAN V Primary DIAN V [place] [id number] Insurance:MEDICARE STEWARTDOB: Community AJAY PART A [facility] [id number] Number: Repository [address]Umc: [phone] [id number] [phone] () Date:2017-10-25 11/02/2017 Secondary DIAN V [place] Insurance:CIGNAPolicy STEWARTDOB: Community Number: [id number] Hospital [id number] Repository Date:4854-92-07YP [address]KZDAKHBRRKT, [place] [address]NB: 11/02/2017 Tertiary NOT GIVENUNK Jaden Insurance:SELF PAY [facility] Number: Effective Repository Date:2017-10-25 10/19/2017 DIAN V Primary DIAN V Jaden [id number] Insurance:MEDICARE STEWARTDOB: Community AJAY PART A [facility] [id number] Number: Repository [address]Ahk: 330 [id number] [phone] () Date:2017-10-13 10/19/2017 Secondary DIAN V Jaden Insurance:CIGNAPolicy STEWARTDOB: Community Number: [id number] Hospital [id number] Repository Date:7236-00-99YL [address]YAOPFIBCKZN, [place] [address]MS: 10/19/2017 Tertiary NOT GIVENUNK Jaden Insurance:SELF PAY [facility] Number: Effective Repository Date:2017-10-13 10/10/2017 MIKE L Primary DIAN V [place] [id number] Insurance:MEDICARE STEWARTDOB: Community AJAY PART A [facility] [id number] Number: Repository [address]Yvt: [phone]) [id number] [phone] () Date:2017-10-11 10/10/2017 Secondary DIAN Carolyne Stanley Insurance:Artie CAMARGOB: [facility] Number: [id number] Hospital [id number] Repository Date:9740-60-17JT BILL [id number] [address]YE: 10/10/2017 Tertiary NOT GIVENBABAK Stanley Insurance:SELF PAY [facility] Number: Effective Repository Date:2017-10-10
== END ==
PROVIDERS: Family Provider Family Medicine; PCP Family Medicine; Referring Provider Urology; Visit Provider Urology
DX: R31.9 Hematuria, unspecified (principal); N20.0 Calculus of kidney
CPT/HCPCS: 74178; Q9967

== ENCOUNTER → 2018-05-29 09:53 | Outpatient (CLI) | payer MEDICARE, OTHER, SELFPAY ==
[2018-01-02 07:37] VITALS: BMI 22.1
--- NOTE | 2018-05-29 10:00 | RAD_ITS ---
STUDY: X-RAY - ABDOMEN/PELVIS REASON FOR EXAM: Female, 77 years old. Left-sided kidney stone seen on recent CT. TECHNIQUE: KUB COMPARISON: CT abdomen and pelvis 05/25/2018. FINDINGS: Oval shaped calculus positioned over the left renal inferior pole silhouette. On the prior CT this was positioned just proximal to the ureteropelvic junction and I suspect it has refluxed back into the collecting system. No visible calculi of the right. No other acute intra-abdominal process is evident. RAD/Abdomen Single View IMPRESSION: The left-sided calculus has probably refluxed from the renal pelvis back into the inferior pole calyx. Electronically Signed: Gilberto Roman MD at 18:02 EST Tel , Service support ,
--- OUTSIDE RECORDS SUMMARY | 2018-08-30 22:21 | XMS RPT_ITS ---
:1940 Author Organization [facility] Support Name Relationship Address Phone ELEN ORDOÑEZ Unavailable [address] + [place] [address] R Unavailable Unavailable Unavailable GABBY, MIKE Unavailable [address] + [place] [address] ELEN ORDOÑEZ Unavailable [address] + [place] [address] R Unavailable Unavailable Unavailable GABBY, MIKE Unavailable [address] + [place] [address] KARINGO ELEN Unavailable [address] + [place] [address] R Unavailable Unavailable Unavailable GABBY, MIKE Unavailable [address] + [place] [address] KARINTRELL ELEN Unavailable [address] + [place] [address] R Unavailable Unavailable Unavailable GABBY, MIKE Unavailable [address] + [place] [address] SMITA ELEN Unavailable [address] + [place] [address] R Unavailable Unavailable Unavailable GABBY, MIKE Unavailable [address] + [place] [address] KARINTRELL ELEN Unavailable [address] + [place] [address] R Unavailable Unavailable Unavailable GABBY, MIKE Unavailable [address] + [place] [address] KARINTELOISAKirk ELEN Unavailable [address] + [place] [address] R Unavailable Unavailable Unavailable AGBBY, MIKE Unavailable [address] + [place] [address] KARINTWIT ELEN Unavailable [address] + [place] [address] R Unavailable Unavailable Unavailable GLENNA DOMÍNGUEZRY Unavailable [address] + [place] [address] KARINTWIT ELEN Unavailable [address] + [place] [address] R Unavailable Unavailable Unavailable GLENNA DOMÍNGUEZRY Unavailable [address] + [place] [address] HUSTWIT ELEN Unavailable [address] + [place] [address] R Unavailable Unavailable Unavailable GABBY MIKE Unavailable [address] [phone] [place] [address] HUSTWIT ELEN Unavailable [address] + [place] [address] R Unavailable Unavailable Unavailable GLENNA DOMÍNGUEZRY Unavailable [address] [phone] [place] [address] [facility] Unavailable [address] + [place] [address] R Unavailable Unavailable Unavailable GLENNA DOMÍNGUEZRY Unavailable [address] [phone] [place] [address] Care Team Providers Name Role Phone ALANA LEMONS ([facility]) Attending Unavailable RUTTI, ALANA ([facility]) Referring Unavailable RUTTI, ALANA ([facility]) Referring Unavailable RUTTI, ALANA ([facility]) Referring Unavailable JULIETH EDDY) Referring Unavailable RUTTI, ALANA ([facility]) Referring Unavailable RUTTI, ALANA ([facility]) Referring Unavailable JULIETH EDDY) Attending Unavailable JULIETH [...] Referring Unavailable Bursley, Pérez Primary Care Unavailable AbhiBradyen ochoaril Attending Unavailable Mason, Chino Referring Unavailable [...] Hospital Repository 09/06/2017 Active Mixed hyperlipidemia Active [place] / E78.2(ICD-10) Clinic Main [place] Repository 06/05/2015 Active Essential (primary) NA Active [place] hypertension / Clinic Main I10(ICD-10) [facility] Rep[facility] 07/06/2012 Active Vitamin D deficiency, NA Active [place] unspecified / Clinic Main E55.9(ICD-10) [facility] Repository 03/16/2018 Active Encounter for general Active [place] adult medical [facility] Main examination without [place] abnormal findings / Repository Z00.00(ICD-10) 02/14/2018 Unknown I10 - Essential Javy Carey Active [place] (primary) Community hypertension / Hospital I10(ICD-10) Repository 12/08/2017 Unknown N95.0 - Brian Marvin Active [place] Postmenopausal Community bleeding / Hospital N95.0(ICD-10) Repository 11/02/2017 Unknown R93.41 - Abnormal Mason, Felice Active [place] radiologic findings [facility] on diagnostic imaging Hospital of renal pelvis, Repository ureter, or bladder / R93.41(ICD-10) 10/19/2017 Unknown R31.9 - Hematuria, Mason, Felice Active [place] unspecified / [facility] R31.9(ICD-10) Hospital Repository 08/25/2017 Active Abnormal findings on NA Active [place] diagnostic imaging of Clinic Main other abdominal [place] regions, including Repository retroperitoneum / R93.5(ICD-10) 08/25/2017 Active Unspecified condition NA Active [facility] associated with Clinic Main female genital organs [facility] and menstrual cycle / Repository N94.9(ICD-10) 08/19/2017 Active Hyperlipidemia, NA Active [facility] unspecified / Clinic Main E78.5(ICD-10) [place] Repository 08/19/2017 Active Other senior living NA Active [place] (current) drug Clinic Main therapy / [place] Z79.899(ICD-10) Repository 08/16/2017 Active Encounter for NA Active [place] screening for other Clinic Main disorder / [facility] Z13.89(ICD-10) Repository 08/08/2017 Active Gross hematuria / NA Active [place] R31.0(ICD-10) Clinic Main [place] Repository 08/08/2017 Active Unknown / ALANA LEMONS Active [place] UNK(Unknown) (REHAB THERAPIST) Clinic Main [place] Repository PROCEDURES PROCEDURES No Procedure Records FoundRESULTS RESULTS OPERATIVE REPORT Observed: 06/23/2018 Status: F Source: [place] 3:16 PM [facility] REPOSITORY [facility] Medical Records Department [address] [place] [address] Operative Report 06/23/18 1514 MR#: [id number] Acct: [id number] Name: DIAN DOMÍNGUEZ V Rep #: [id number] : 1940 77 From: Felice Cuevas MD PCP: Pérez Eddy MD Status: REG [facility] Y Location: [place] [address] Report of Operation Date of Procedure: 06/23/18 [...] DISCHARGE INSTRUCTION Observed: 06/23/2018 Status: F Source: [place] 3:03 PM [facility] REPOSITORY [facility] Medical Records Department [address] [place] [address] Instructions for Home/Discharge Instructions 06/23/18 1502 MR#: [id number] Acct: [id number] Name: DIAN DOMÍNGUEZ V Rep #: [id number] : 1940 77 From: Felice Cuevas MD PCP: Pérez Eddy MD Status: REG [facility] Discharge Diet: Light diet - advance as [...] SINGLE VIEW Observed: 06/23/2018 Status: F Source: [place] 12:41 PM [facility] REPOSITORY [facility] Imaging Services [address] [place] [address] Abdomen Single View MR#: [id number] Acct: [id number] Name: DIAN DOMÍNGUEZ V Rep #: [id number] : 1940 F 77 From: Justin Moody DO PCP: Pérez Eddy MD Status: REG [facility] Study: Abdomen Single View Date of Exam: 06/23/18 Exam# [id number] Ordering Dr: Felice Cuevas MD STUDY: X-RAY [...] CC: Pérez Eddy MD; Felice Cuevas MD Service Or Work Dispatcher Chief: Signed SCREENING MAMM (CAD), Observed: 06/19/2018 Status: F Source: [place] BIL 2:36 PM [facility] REPOSITORY [facility] Imaging Services [address] [place] [address] SCREENING MAMM (CAD), BILAT MR#: [id number] Acct: [id number] Name: DIAN DOMÍNGUEZ V Rep #: [id number] : 1940 F 77 From: Ced Wallace MD PCP: Pérez Eddy MD Status: REG CLI Study: SCREENING MAMM (CAD), BILAT Date of Exam: 06/19/18 Exam# [id number] Ordering Dr: Pérez Eddy MD MAMMOGRAPHY - [...] delay biopsy of a clinically suspicious abnormality. [id number] Electronically Signed: Ced Wallace MD at 14:12 EST Tel [phone], Service support , CC: Pérez Eddy MD Service Or Work Dispatcher Chief: Signed 12 LEAD ELECTROCARDIOGRAM Observed: 06/02/2018 Status: F Source: [place] 12:00 PM [facility] REPOSITORY [facility] Cardiovascular Services [address] [place] [address] 12 Lead EKG 06/01/18 1331 MR#: [id number] Acct: [id number] Name: DIAN DOMÍNGUEZ V Rep #: [id number] : 1940 77 From: Marcial Moe MD Attending Dr: Mason BINGHAM,Felice Israel Status: PRE [facility] Ordering Dr: Felice Cuevas MD Date: 06/01/18 Location: [facility] Sex: F C Admitted: Test Reason : PRE OP Blood Pressure : / mmHG Vent. Rate : 074 BPM Atrial Rate : 074 BPM P-R Int : 108 ms QRS Dur : 078 ms QT Int : 358 ms P-R-T Axes : 031 -01 015 degrees QTc Int : 397 ms Sinus rhythm with short IA Otherwise normal ECG Confirmed by MARCIAL MOE MD ([id number]), proposal editor ALEYDA SARABIA ([id number]) on 06/02/2018 12:00:28 PM Referred By: Felice Cuevas Confirmed By:MARCIAL MOE MD 06/02/18 1200 Date Marcial Moe MD CC: Pérez Eddy MD; Felice Cuevas MD Signed ABDOMEN SINGLE VIEW Observed: 05/29/2018 Status: F Source: [place] 10:01 AM [facility] REPOSITORY [facility] Imaging Services [address] [place], [place] [address] [address] Abdomen Single View MR#: [id number] Acct: [id number] Name: IDAN DOMÍNGUEZ V Rep #: [id number] : 1940 F 77 From: Gilberto Roman MD PCP: Pérez Eddy MD Status: REG CLI Study: Abdomen Single View Date of Exam: 05/29/18 Exam# [id number] Ordering Dr: Felice Cuevas MD STUDY: X-RAY [...] CC: Pérez Eddy MD; Felice Cuevas MD Service Or Work Dispatcher Chief: Signed CREATININE FINGERSTICK Collected: 05/25/2018 Status: F Source: [place] 4:49 PM [facility] REPOSITORY TYPE CODE TESTS RESULT OUT OF RANGE REFERENCE UNITS LAB L9100.0210 0.55-1.02 mg/dL Normal CREATININE WB 0.8 LAB L9100.0220 >60 mL/min EGFR WB Normal > 60.0000 Performed By: #### L9100.0200 #### [facility] Point of Care [address] [place] [address] CT ABD/PELVIS W/WO Observed: 05/25/2018 Status: F Source: [place] CONTRAST 4:41 PM [facility] REPOSITORY [facility] Imaging Services [address] [facility] [place] [address] CT Abd/Pelvis W/WO Contrast MR#: [id number] Acct: [id number] Name: DIAN DOMÍNGUEZ V Rep #: [id number] : 1940 F 77 From: Lee Andrews DO PCP: Pérez Eddy MD Status: REG CLI Study: CT Abd/Pelvis W/WO Contrast Date of Exam: 05/25/18 Exam# [id number] Ordering Dr: Felice Cuevas MD STUDY: CT [...] MD; Pérez Eddy MD; Felice Cuevas MD Service Or Work Dispatcher Chief: Signed CYTOSPIN ON FLUID Observed: 05/15/2018 Status: F Source: [place] 1:30 PM [facility] REPOSITORY Patient: DIAN DOMÍNGUEZ V : 1940 (77/F) Acct Num: [id number] Phys: Ajay CORONADO,Tatiana Unit Num: [id number] Loc: [facility] Specimen: [id number] Received: 05/16/18821 Spec Type: CYSPIN FL TISSUES 1 TISSUES: Urine COMMENT The specimen also shows neutrophils and organisms consistent with bacteria. Differential diagnosis includes infection, calculi or low- grade urothelial neoplasm. Clinical correlation and appropriate follow up are necessary. Please make reference to previous specimen ([id number]) urine for cytology with diagnosis of negative for malignant cells. Case has been reviewed in consultation with Dr. Mak who concurs with the above diagnosis. IDC:AM CYTOLOGY GROSS Received is 50 ml of light yellow clear fluid labeled with the patient's name and and designated per the requisition as urine. Submitted for cytology preparation. / 05/16/18 TC:5 CPT: 04943 CYTOLOGY STUDY Slides are reviewed. DIAGNOSIS CYTOLOGY Urine for cytology (cytospin): Atypical urothelial noted. See comment. SJ:michelle 05/17/18 HEADER OPERATION: Not noted PRE-OP DIAGNOSIS: Hematuria TISSUE SUBMITTED: Urine for cytology Signed Jared Ramos 05/17/18 <signature on file> Performed By: #### PCYSPIN #### [facility] [address] [facility] [place], [place], [address] CYTOLOGY, BODY FLUID / Collected: 05/15/2018 Status: F Source: [facility] 1:30 PM [facility] REPOSITORY Order Comment: Specimen Source: URINE TYPE CODE TESTS RESULT OUT OF RANGE REFERENCE UNITS LAB L350.1000 SEE Normal PATHOLOGY CYTOLOGY,BF REPORT /CSF Result Comment: Specimen submitted to Anatomical Pathology Department for testing. Performed By: #### L350.1000 #### [facility] [address] [facility] [place], [place], [address] MEASLES IGG ANTIBODY Collected: 03/16/2018 Status: F Source: [place] 1:[address] [facility] REPOSITORY TYPE CODE TESTS RESULT [...] Performed By: #### MEASLG, MUMPSG, RUBIGG #### [facility] [address] [place], [place] [id number] MUMPS IGG AB Collected: 03/16/2018 Status: F Source: [place] 1:[address] [facility] REPOSITORY TYPE CODE TESTS RESULT [...] Performed By: #### MEASLG, MUMPSG, RUBIGG #### [facility] [address] [place], [place] [address] RUBELLA IGG ANTIBODY Collected: 03/16/2018 Status: F Source: [place] 1:[address] [facility] REPOSITORY TYPE CODE TESTS RESULT [...] Performed By: #### MEASLG, MUMPSG, RUBIGG #### [facility] [address] [place], [place] [address] PROGRESS Observed: 03/09/2018 Status: COMPLETED Source: [place] 9:[address] [facility] REPOSITORY HNO ID: [id number] Author: Julieth Rose) Nunu Service: (none) Author Type: Physician Type: Progress Notes Filed: 03/09/2018 11:13 PM Note Text: Chief Complaint Patient presents with: F/U 6 Month HPI Dian Domínguez is a 77 year old female who presents here today for routine 6 month follow up. Following up with [facility] for her right hip pain which [...] of children: Occupational History Occupation Employer Comment [employer] retired January 2012 Social History Main [...] MD CNOV Observed: 03/09/2018 Status: COMPLETED Source: [place] 9:[address] [facility] REPOSITORY Office Visit ([facility]) DIAN DOMÍNGUEZ V ([id number]) 1940 F Date Time Provider Department 03/09/18 [...] 6 month follow up. Following up with [facility] for her right hip pain which [...] Laterality Date - COLONOSCOP W/ OR W/O [facility] SPEC 11/04/11 repeat 10 years - [...] of children: Occupational History Occupation Employer Comment [employer] retired January 2012 Social History Main [...] Julieth Eddy MD Referring Provider: JULIETH EDDY) [[id number]] Allergies As of Date: 03/09/2018 Noted Allergy [...] deficiency [E55.9] Screening mammogram, encounter for [Z12.31] Order(s):[facility] SCREENING [2172575] Order #: [id number] FUTURE carbamide peroxide (DEBROX) 6.5 % otic solutionUse 5 Drops in the left ear twice daily for 4 days.Disp: 1 BottleRfl: 1 COMP METABOLIC PANEL [SQCMP] Order #: [id number] FUTURE VITAMIN D 25 HYDROXY [SQVITD] Order #: [id number] FUTURE Prescriptions as of 03/09/2018 Sig: ATENOLOL [...] 03/09/2018 9:04 AM >> JULIETH EDDY MD [facility] Mar 09, 2018 9:04 AM Taking Problem [...] PANEL, BASIC Collected: 03/03/2018 Status: F Source: [place] 7:40 AM [facility] REPOSITORY TYPE [...] Desk Reference: National Heart, Lung, and Blood [place]. National Institutes of Health. 2001: NIH Publication No. 01-3305. 2. An International Atherosclerosis Society position paper: global recommendations for the management of dyslipidemia: executive summary, Atherosclerosis. 2014: 232(2):410-413. Performed By: #### LIPB #### [facility] [address] [place], [place] [address] PROGRESS Observed: 02/15/2018 Status: COMPLETED Source: [place] 1:40 PM [facility] REPOSITORY HNO ID: [id number] Author: Yany Alcantara LPN Service: (none) Author [...] date CNOV Observed: 02/15/2018 Status: COMPLETED Source: [place] 1:[address] [facility] REPOSITORY [facility] DIAN DOM[facility]NGUEZ V ([id number]) 1940 F Date Time Provider Department 02/15/18 1:40 PM [facility] During your visit today, we recorded the following information about you: Weight 56.2 kg Yayn Alcantara LPN 02/16/2018 5:04 PM Signed Manual [...] 02/16/18 PROGRESS Observed: 01/30/2018 Status: COMPLETED Source: [place] 3:[address] [facility] REPOSITORY [facility] ID: [id number] Author: Julieth Rose) Nunu Service: (none) Author [...] of children: Occupational History Occupation Employer Comment [employer] retired January 2012 Social History Main [...] PM CNOV Observed: 01/30/2018 Status: COMPLETED Source: [place] 3:[address] [facility] REPOSITORY [facility] DIAN DOMÍNGUEZ V ([id number]) 1940 F Date Time Provider Department 01/30/18 [...] Laterality Date - COLONOSCOP W/ OR W/O [facility] SPEC 11/04/11 repeat 10 years - REMOVE TONSILS/ADENOIDS,<14 Y/O age 8 Social History Marital status: Spouse name: Years of education: Number of children: Occupational History Occupation Employer Comment [employer] retired January 2012 Social History Main Topics [...] 01/03/2018 Status: F Source: [place] 2:06 PM [facility] REPOSITORY [facility] Cardiovascular Services [address] [place] [address] 12 Lead EKG 12/30/17 1329 MR#: [id number] Acct: [id number] Name: DIAN DOMÍNGUEZ V Rep #: [id number] : 1940 77 From: Javy Carey MD Attending Dr: Brian Marvin MD Status: [facility] Ordering Dr: Brian Marvin MD Date: 12/30/17 Location: [facility] Sex: F C Admitted: Test Reason : [...] QRS axis Confirmed by JAVY CAREY ([id number]), proposal editor ALEYDA SARABIA ([id number]) on 01/03/2018 2:05:52 PM Referred By: Brian Marvin Confirmed By:JAVY CAREY 01/03/18 1405 Date Javy Carey MD CC: Pérez Wiley MD; Pérez Eddy MD; Brian Marvin MD Signed DISCHARGE INSTRUCTION Observed: 01/02/2018 Status: F Source: [place] [facility] Medical Records Department [address] [place] [address] Instructions for Home/Discharge Instructions 01/02/18 1711 MR#: [id number] Acct: [id number] Name: DIAN DOMÍNGUEZ V Rep #: [id number] : 1940 77 From: Brian Marvin MD PCP: Pérez Eddy MD Status: DEP AZC Discharge Diet: No Restrictions Discharge Activity: Return [...] Follow Up With: Brian Marvin MD - [phone] When: 2-4 weeks 01/02/18 1712 <Electronically signed by Brian Marvin MD> Date Brian Marvin MD CC: Pérez Wiley MD; Pérez Eddy MD OPERATIVE REPORT Observed: 01/02/2018 Status: F Source: [place] 5:11 PM [facility] REPOSITORY [facility] Medical Records Department [address] [place] [address] Operative Report 01/02/18 1652 MR#: [id number] Acct: [id number] Name: DIAN DOMÍNGUEZ V Rep #: [id number] : 1940 77 From: Brian Marvin MD PCP: Pérze Eddy MD Status: [facility] Y Location: [facility] Operative Report Date of Procedure: 01/02/18 Surgeon: Brian Marvin MD, FACOG Director Of Construction: BRENNON Trimble Anesthesia: Karla Flaherty CRNA Type [...] and bilateral fallopian tubes and ovaries. 01/02/18 1301 <Electronically signed by Brian Marvin MD> Date Brian Marvin MD CC: Pérez Wiley MD; Pérez Eddy MD; Brian Marvin MD Signed ENDOCER CURETT/BIOPSY Observed: 01/02/2018 Status: F Source: [place] 9:00 AM [facility] REPOSITORY Patient: DIAN DOMÍNGUEZ V : 1940 (77/F) Acct Num: [id number] Phys: Rocio BINGHAM,Brian Unit Num: [id number] Loc: [facility] Specimen: [id number] Received: 01/02/18 - 1150 Spec Type: ECC [...] cut surfaces. No tubo-ovarian adhesions are identified. Mail Sorter sections are submitted in three cassettes as [...] cm. It is filled with clear fluid. Mail Sorter sections are submitted in three cassettes as follows: 1 fallopian tube, 2 ovary, 3 ovary and detached cyst. The ovary and detached cyst are submitted in entirety. / PATRIZIA:michelle 01/02/18 TC:1 CPT: 62209 x2, 65255 x2 HEADER OPERATION: Hysteroscopy, dilation and curettage, [...] on file> Performed By: #### PECC #### [facility] [address] [place], [address] HISTORY AND PHYSICAL Observed: 01/01/2018 Status: F Source: [place] EXAM 7:55 PM [facility] REPOSITORY [facility] Medical Records Department [address] [place] [address] History and Physical 01/01/181952 MR#: [id number] Acct: [id number] Name: DIAN DOMÍNGUEZ V Rep #: [id number] : 1940 77 From: Brian Marvin MD PCP: Pérez Eddy MD Status: PRE [facility] Y Location: [facility] History and Physical Date of Admission: 01/02/18 Surgical History and Physical Dian Domínguez, a 77 year old female 2 0 0 0 2, presents for D and C, H/S, Dx L/S, Bilateral salpingectomy, left oophrectomy on January 02, 2018 at 9:00. -- HAND SINGER Bleeding, Left Ovarian Cyst, Thickened EM -- [...] 120/60 Sitting, Right arm, regular cuff Weight- 121.72352 lbs Height- 62.00 inch BMI:22.21 CONSTITUTIONAL - [...] AND SCREEN Collected: 12/28/2017 Status: F Source: [place] 2:02 PM [facility] REPOSITORY Order Comment: Surgery Date: 01/02/18 Hx of Preganancy in last 3 Months No Ever experience any problems with transfusion(s)? N Hx of Transfusion in last 3 Months N Reason for Type AND Screen/Red Cells: SURGERY SURGICAL PROCEDURE: 51549 TYPE CODE TESTS RESULT OUT OF RANGE REFERENCE UNITS LAB B10.0800 A Normal BLOOD TYPE GEL POSITIVE LAB B100.4000 Normal Antibody NEGATIVE Screen Performed By: #### B101.7475 #### [facility] [address] [facility] [place], [address] CBC-COMPLETE BLOOD CNT Collected: 12/28/2017 Status: F Source: [place] NO DIFF 1:58 PM [facility] REPOSITORY TYPE CODE TESTS RESULT OUT OF [...] MPV 10.9 Performed By: #### L100.0500 #### [facility] [address] [place], [address] PROTHROMBIN TIME W/INR Collected: 12/28/2017 Status: F Source: [place] 1:58 PM [facility] REPOSITORY TYPE CODE TESTS RESULT OUT OF RANGE REFERENCE UNITS LAB L300.4150 11.7-14.9 SECONDS Normal PROTIME 13.4 LAB L300.4200 Normal INR 1.0 Performed By: #### L300.3900, L300.4310 #### [facility] [address] [place], [address] PARTIAL THROMBOPLAST Collected: 12/28/2017 Status: F Source: [facility] 1:58 PM [facility] REPOSITORY TYPE CODE TESTS RESULT OUT OF RANGE REFERENCE UNITS LAB L300.4310 24.1-36.2 Seconds Normal PTT 27.6 Performed By: #### L300.3900, L300.4310 #### [facility] [address] [facility] [place], [address] COMPREHENSIVE METABOLIC Collected: 12/28/2017 Status: F Source: [place] PROFIL 1:58 PM [facility] REPOSITORY TYPE CODE TESTS RESULT OUT OF [...] GAP 6 Performed By: #### L500.4050 #### [facility] [address] [facility] [place], [address] DOWNTIME REPORT Observed: 12/01/2017 Status: F Source: [place] 2:19 PM [facility] REPOSITORY [facility] Medical Records Department [address] [place] [address] Downtime Report MR#: [id number] Acct: [id number] Name: DIAN DOMÍNGUEZ V Rep #: [id number] : 1940 76 From: Phil Sarabia PCP: Status: REG CLI This patient was seen during an EMR downtime November 14, 2017 - November 21, 2017. This patient may have a combination of paper and electronic documentation or all paper documentation. All documentation is viewable within the e-chart portion of [employer] for each patient visit. CANCER ANTIGEN 125 Collected: 11/21/2017 Status: F Source: [place] 4:07 PM [facility] REPOSITORY TYPE CODE TESTS RESULT OUT OF RANGE REFERENCE UNITS LAB L3100.5000 0.0-38.1 U/mL Normal CA125 11.6 2303 Result Comment: Alexa ECLIA methodology Performed at: [address] [id number] Hourly Shift Manager: Clarke Winter PhD, Phone: [phone] Performed By: #### L3100.5000 #### [facility] (refer to report for specific site) refer to report for address and phone number PAP TEST I-G Collected: 11/21/2017 Status: F Source: [place] 3:45 PM [facility] REPOSITORY Order Comment: CYTOLOGY INFORMATION: - CLINICAL INFORMATION: POSTMENOPAUSAL - DATE LMP/MENOPAUSE: - COLLECTION VIAL: Thin Prep Vial - DIRECTOR OF CARDIOPULMONARY SERVICES SOURCE: CERVICAL/ENDOCERVICAL - COLLECTION TECHNIQUE: BRUSH/SPATULA Specimen Comment: [id number] Specimen Comment: No. of containers..01 ThinPrep Vial [...] Normal PERFORM Comment Result Comment: Abby Diaz, Shot Peening Operator (ASCP) LAB L7400.4420 . Normal TEST METHOD Comment Result Comment: This liquid based ThinPrep(R) pap test was screened with the use of an image guided system. Performed at: [address] [id number] Hourly Shift Manager: Sasha Parr MD, Phone: [phone] LAB L7400.3211 . Normal . COMM LAB L7400.5079 . Normal PAPSMR Comment Result Comment: The [...] 11/21/2017 Status: F Source: [place] 12:00 AM [facility] REPOSITORY Patient: DIAN DOMÍNGUEZ V : 1940 (76/F) Acct Num: [id number] Phys: Rocio BINGHAM,[facility] Unit Num: [id number] Loc: WOBLAB Specimen: [id number] Received: 11/21/171748 Spec Type: ENDOM BX/C TISSUES [...] one cassette. / SJ:michelle 11/22/17 TC:4 CPT: 90785 x2 HEADER OPERATION: Endometrial biopsy PRE-OP DIAGNOSIS: [...] on file> Performed By: #### PEMB #### [facility] [address] [place], [address] OPERATIVE REPORT Observed: 11/02/2017 Status: F Source: [place] 3:05 PM [facility] REPOSITORY [facility] Medical Records Department [address] [place] [address] Operative Report 11/02/17 1502 MR#: [id number] Acct: [id number] Name: DIAN DOMÍNGUEZ V Rep #: [id number] : 1940 76 From: Felice Cuevas MD PCP: Pérez Eddy MD Status: REG SDC Y Location: [place] [address] Report of Operation Date of Procedure: 11/02/17 [...] 11/02/2017 Status: F Source: [place] 2:08 PM [facility] REPOSITORY [facility] Medical Records Department [address] [place] [address] Instructions for Home/Discharge Instructions 11/02/17 1407 MR#: [id number] Acct: [id number] Name: DIAN DOMÍNGUEZ V Rep #: [id number] : 1940 76 From: Felice Cuevas MD PCP: Pérez Eddy MD Status: REG [facility] Discharge Diet: Light diet - advance as [...] BID #6 tab 11/02/17 Hydrocodone Bitart/Apap 5-325 [[place] 5MG-325MG] 1 tab PO Q4H PRN PRN 5 Days #14 tab 11/02/17 The following prescriptions were given: Hydrocodone Bitart/Apap 5-325 [[place] 5MG-325MG] 1 tab PO Q4H PRN PRN [...] CREATININE FINGERSTICK Collected: 10/19/2017 Status: F Source: [place] 2:09 PM [facility] REPOSITORY TYPE CODE TESTS RESULT OUT OF RANGE REFERENCE UNITS LAB L9100.0210 0.55-1.02 mg/dL Normal CREATININE WB < 0.6 LAB L9100.0220 >60 mL/min EGFR WB Normal > 60.0000 Performed By: #### L9100.0200 #### [facility] Point of Care [address] [place] [address] ABDOMEN/PELVIS W IV CONT Observed: 10/19/2017 Status: F Source: [place] ONLY 2:01 PM [facility] REPOSITORY [facility] Imaging Services [address] [place] [address] Abdomen/Pelvis W IV Cont ONLY MR#: [id number] Acct: [id number] Name: DIAN DOMÍNGUEZ V Rep #: [id number] : 1940 F 76 From: Main [place]ou MD PCP: Pérez Eddy MD Status: REG CLI Study: Abdomen/Pelvis W IV Cont ONLY Date of Exam: 10/19/17 Exam# [id number] Ordering Dr: Felice Cuevas MD STUDY: CT [...] CC: Pérez Eddy MD; Felice Cuevas MD Service Or Work Dispatcher Chief: Signed FLUID/WASHING Observed: 10/10/2017 Status: F Source: [place] 11:30 AM [facility] REPOSITORY Patient: DIAN DOMÍNGUEZ V : 1940 (76/F) Acct Num: [id number] Phys: Mason BINGHAM,Felice [place] Unit Num: [id number] Loc: LABSPEC Specimen: [id number] Received: 10/11/17928 Spec Type: Fluid TISSUES TISSUES: Urine CYTOLOGY GROSS Received is 65 ml of clear yellow fluid labeled with the patient's name and and designated per the requisition as urine. Submitted for cytology preparation. / RB:cc 10/11/17 TC:5 CPT: 39989 CYTOLOGY STUDY Slides are reviewed. The specimen consists of benign squamous cells, urothelial cells, inflammatory cells and organisms consistent with bacteria. DIAGNOSIS CYTOLOGY Urine for cytology (cytospin): Negative for malignant cells. SJ:michelle 10/12/17 HEADER OPERATION: Not noted PRE-OP DIAGNOSIS: Hematuria TISSUE SUBMITTED: Urine for cytology Signed Jared Ramos 10/12/17 <signature on file> Performed By: #### PFLU #### [facility] [place], [address] CNOV Observed: 09/06/2017 Status: COMPLETED Source: [place] 6:[address] [facility] REPOSITORY Office Visit (FAMPWS) DIAN DOMÍNGUEZ V ([id number]) 1940 F Date Time Provider Department 09/06/17 [...] Laterality Date - COLONOSCOP W/ OR W/[facility] SPEC 11/04/11 repeat 10 years - [...] of children: Occupational History Occupation Employer Comment [employer] retired January 2012 Social History Main [...] Negative Negative Ketones, Urine Negative Negative Specific [place], Ur 1.005 - 1.030 1.016 Hemoglobin/Blood,Ur Negative [...] 6 LIPID PANEL BASIC [SQLIPB] Order #: [id number] FUTURE URINALYSIS WITH MICROSCOPIC [SQUAWMIC] Order #: [id number] Prescriptions as of 09/06/2017 Sig: ATENOLOL 50 [...] 09/06/17 PROGRESS Observed: 09/06/2017 Status: COMPLETED Source: [place] 5:[address] [facility] REPOSITORY HNO ID: [id number] Author: Julieth Rose) Nunu Service: (none) Author [...] Laterality Date - COLONOSCOP W/ OR W/O [facility] SPEC 11/04/11 repeat 10 years - [...] of children: Occupational History Occupation Employer Comment [employer] retired January 2012 Social History Main [...] Negative Negative Ketones, Urine Negative Negative Specific [place], Ur 1.005 - 1.030 1.016 Hemoglobin/Blood,Ur Negative [...] MD CNPN Observed: 08/31/2017 Status: COMPLETED Source: [place] 12:[address] [facility] REPOSITORY [facility] DIAN DOMÍNGUEZ V ([id number]) 1940 F Date Time Provider Department 08/31/17 J[facility]ETH EDDY) [facility] During your visit today, we recorded the following information about you: Christie Celaya, RN, RN 08/31/2017 11:07 AM Signed [facility] requesting office notes, labs, radiology reports and current med list faxed to [phone]. Done. Allergies As of Date: 08/31/2017 Noted [...] 08/31/17 PROGRESS Observed: 08/25/2017 Status: COMPLETED Source: [place] 11:20 AM [facility] REPOSITORY HNO ID: [id number] Author: Edwige Joe Service: (none) Author Type: [...] W IVCON Observed: 08/25/2017 Status: F Source: [place] 11:05 AM [facility] REPOSITORY * * *Final Report* * * DATE OF EXAM: Aug 25 2017 11:05AM [facility] 0530 - CT ABD/PEL W IVCON / [...] CYSTS, 5 MM LEFT LOWER POLE CALCULUS Service Or Work Dispatcher Chief: SARINA Transcribe Date/Time: Aug 25 2017 2:58P Dictated by : JANETTE RICH MD This examination was interpreted and the report reviewed and electronically signed by: JANETTE RICH MD on Aug 25 2017 3:05PM EST [id number] LIPID PANEL, BASIC Collected: 08/23/2017 Status: F Source: [place] 8:59 AM [facility] REPOSITORY TYPE CODE TESTS RESULT [...] Desk Reference: National Heart, Lung, and Blood [place]. National Institutes of Health. 2001: NIH Publication No. 01-3305. 2. An International Atherosclerosis Society position paper: global recommendations for the management of dyslipidemia: executive summary, Atherosclerosis. 2014: 232(2):410-413. Performed By: #### LIPB #### [facility] [address] [place], [place] [address] PROGRESS Observed: 08/22/2017 Status: COMPLETED Source: [place] 1:[address] [facility] REPOSITORY HNO ID: [id number] Author: Breanna Alatorre LPN Service: (none) Author [...] LPN CNNURSE Observed: 08/22/2017 Status: COMPLETED Source: [place] 1:[address] [facility] REPOSITORY Nurse Visit (FAMPWS) DIAN DOMÍNGUEZ V ([id number]) 1940 F Date Time Provider Department 08/22/17 1:00 PM [facility] FAMPWS During your visit today, we [...] Breanna Alatorre LPN Referring Provider: JULIETH EDDY) [[id number]] Allergies As of Date: 08/22/2017 Noted Allergy [...] METABOLIC PANL Collected: 08/19/2017 Status: F Source: [place] 7:42 AM [facility] REPOSITORY TYPE CODE TESTS RESULT OUT OF REFERENCE UNITS RANGE LAB GLU 74-99 mg/dL High Glucose 108 Result Comment: The [place] Diabetes Association (ADA) provides guidance for cutoff [...] Standards of Medical Care in Diabetes 2016, [place] Diabetes Association. Diabetes Care. 2016.39(Suppl 1). LAB [...] actual GFR. Performed By: #### BMP #### [facility] [address] [place], [place] [address] CREATININE Collected: 08/16/2017 Status: F Source: [place] 9:[address] [facility] REPOSITORY TYPE CODE TESTS RESULT [...] actual GFR. Performed By: #### CRET1 #### [facility] [address] [place], [place] [address] US KIDNEY/BLADDER Observed: 08/11/2017 Status: F Source: [place] 2:[address] [facility] REPOSITORY * * *Final Report* * * DATE OF EXAM: Aug 11 2017 2:29PM [facility] 1055 - US KIDNEY/BLADDER / [...] LOWER POLE COLLECTING SYSTEM UPPER RANGE NORMAL. Service Or Work Dispatcher Chief: SARINA Transcribe Date/Time: Aug 11 2017 4:41P Dictated by : GARFIELD MCCABE MD This examination was interpreted and the report reviewed and electronically signed by: GARFIELD MCCABE MD on Aug 11 2017 4:50PM EST [id number] Observed: 08/11/2017 Status: COMPLETED Source: [place] 1:[address] [facility] REPOSITORY O ID: [id number] Author: Kecia Bean Service: (none) Author Type: [...] PM CNPTOUTREACH Observed: 08/09/2017 Status: COMPLETED Source: [place] 12:[address] [facility] REPOSITORY Patient Outreach (INTMWH) GABBYDIAN Barfield ([id number]) 1940 F Date Time Provider Department 08/09/17 JULIETH EDDY) [facility] During your visit today, we recorded the following information about you: Allergies As of Date: 08/09/2017 Noted Allergy Reaction BEES 07/19/2005 CLINDAMYCIN 04/29/2011 2 - Rash IBUPROFEN 04/29/2011 2 - Rash LIPITOR (ATORVASTATIN CALCIUM) 07/19/2005 Comments: Leg weakness PENICILLINS 07/19/2005 2 - Rash Date Reviewed: 08/08/2017 Reviewed by: Shanta Chahal (Precision Inspector) JORDAN Hartman - Fully Assessed Visit Diagnosis:Medication management [Z79.899] Order(s):BASIC METABOLIC PNL [SQBMP] Order #: [id number] FUTURE Prescriptions as of 08/09/2017 Sig: NITROFURANTOIN [...] URINALYSIS WITH Collected: 08/08/2017 Status: F Source: [facility] 3:49 PM CLINIC MAIN CAMPUS REPOSITORY TYPE CODE TESTS RESULT OUT OF RANGE REFERENCE UNITS LAB UCOL Yellow Color Abnormal Red Alert LAB [facility] Clear Clarity Abnormal Cloudy Alert LAB UGLUC Negative mg/dL Glucose, Urine Negative LAB UBIL Negative Bilirubin, Urine Negative LAB UKET Negative Ketones, Urine Negative LAB USPG 1.005-1.030 Specific [place], Ur 1.016 LAB UHGB Negative Abnormal Hemoglobin/Blood, [...] Epithelial Cells Performed By: #### UAWMIC #### [facility] [address] [place] [address] Observed: 08/08/2017 Status: F Source: [place] URINE CULTURE 3:[address] [facility] REPOSITORY Sp. Request/Comment: - Specimen received in preservative Culture Result - <10,000 CFU/ml Normal urogenital mohsen Performed By: #### URCUL #### [facility] [address] [place] [address] PROGRESS Observed: 08/08/2017 Status: COMPLETED Source: [place] 3:[address] [facility] REPOSITORY HNO ID: [id number] Author: Alana (Juanita Lemons Service: (none) Author [...] of children: Occupational History Occupation Employer Comment [employer] retired January 2012 Social History Main Topics Smoking status: Never Smoker Smokeless status: Never Used Alcohol use: Yes Comment: occasionally Drug use: No Sexual activity: Yes Partners with: Male Comment: burning after intercourse Social History Narrative COW [facility] REVIEW OF SYSTEMS GENERAL: No weight loss, [...] mammogram and will be establishing with Dr. Edyd in about 1 month. Alana Lemons CNP ALLERGIES ALLERGIES DATE TYPE / CODE NAME / CODE REACTION SEVERITY SOURCE 06/19/2018 Drug Penicillins/B677889 Rash Unknown [place] Allergy/416 476(RXNORM) [facility] 127050([facility] ED [facility]) Repository 06/19/2018 Drug ibuprofen/B02265584 Diarrhea Unknown [place] Allergy/416 7(RXNORM) Community 712255([facility] ED [facility]) Repository 06/19/2018 Drug clindamycin/G744382 Diarrhea Unknown [place] Allergy/416 794(RXNORM) Community 896427([facility] ED CT) Repository 06/19/2018 Drug atorvastatin/W16687 Other Unknown [place] Allergy/416 6321(RXNORM) Community 606256([facility] ED CT) Repository 06/19/2018 Drug bee Rash Unknown [place] Allergy/416 pollen/D250367569(R Community 528415([facility] ED CT) Repository 04/29/2011 DRUG CLINDAMYCIN RASH [facility] INGREDI/419 [place] 810503(SNOM Repository ED CT) 04/29/2011 DRUG IBUPROFEN RASH [facility] INGREDI/419 [place] 460989(SNOM Repository ED CT) 07/19/2005 Environ/420 BEES [facility] 930374([facility] [place] [facility]) Repository 07/19/2005 DRUG ATORVASTATIN [facility] INGREDI/419 CALCIUM [place] 189399(SNOM Repository ED CT) 07/19/2005 Drug PENICILLINS RASH [facility] Class/00071 [place] 1003(SNOMED Repository CT) ENCOUNTERS ENCOUNTERS ADMIT/DISCHARGE ACCOUNT ADMITTING ENCOUNTER LOCATION SOURCE NUMBER CLASS 06/23/2018/06/23/[id number] ing:SDCRoom: Repository AC15 06/19/2018 [id number] [facility] ing:OPBI Repository 06/01/2018 [id number] Ambulatory BMSBuilding:W [facility] Repository 05/29/2018 [id number] Ambulatory [facility] ing:RAD Repository 05/25/2018 [id number] [facility] ing:CT Repository 05/15/2018 [id number] [facility] ing:LABSPEC Repository 03/16/2018/03/16/20 [id number] Ambulatory [address] [place] Repository 03/09/2018/03/10/20 [id number] Ambulatory [facility] [place] Repository 03/03/2018/03/03/20 [id number] Ambulatory [address] Repository 02/15/2018/02/18/20 [id number] Ambulatory [address] Repository 01/30/2018/02/01/20 [id number] Ambulatory [address] Repository 01/02/2018/01/03/20 [id number] Ambulatory [address] Hospital ing:SDCRoom: Repository AC02 2017 [id number] Ambulatory BMSBuilding:W [facility] Repository 11/21/2017 [id number] Ambulatory [facility] ing:WOBLAB Repository 11/02/2017/11/03/19 [id number] Ambulatory [address] ing:SDC Repository 10/19/2017 [id number] Ambulatory [facility] ing:CT Repository 10/10/2017 [id number] Ambulatory [facility] ing:LABSPEC Repository 09/06/2017/09/08/19 [id number] Ambulatory [address] Repository 08/25/2017/08/27/19 [id number] Ambulatory [address] Repository 08/25/2017/08/26/19 [id number] Ambulatory [address] Repository 08/22/2017/08/24/19 [id number] Ambulatory [address] Repository 08/19/2017/08/20/19 [id number] Ambulatory [address] Repository 08/16/2017/08/17/19 [id number] Ambulatory [address] Repository 08/11/2017/08/12/19 [id number] Ambulatory [address] Repository 08/08/2017/08/08/19 [id number] Ambulatory [address] Repository 08/08/2017/08/10/19 [id number] Ambulatory [address] Repository PAYERS PAYERS ENCOUNTER GUARANTOR PAYER SUBSCRIBER SOURCE 06/23/2018 DIAN [place] Primary DIAN [id number] Insurance:MEDICARE STEWARTDOB: [facility] PART A [id number] [place] Number: Repository [address]Lfy: 330 [id number] [phone] () Date:2018-05-30 06/23/2018 Secondary DIAN V [place] Insurance:CIGNAPolicy STEWARTDOB: Community Number: [id number] Hospital [id number] Repository Date:3026-74-79TM [address]UCJ[place], [place] [address]FS: 06/23/2018 Tertiary NOT GIVENUNK [place] Insurance:SELF PAY [facility] Number: Effective Repository Date:2018-05-30 06/19/2018 DIAN V Primary DIAN V [place] [id number] Insurance:MEDICARE STEWARTDOB: Community AJAY PART A [facility] [id number] [facility] [place] Number: Repository [address]Ioi: 330 [id number] [phone] () Date:2018-03-09 06/19/2018 Secondary DIAN V [place] Insurance:CIGNAPolicy STEWARTDOB: Community Number: [id number] Hospital [id number] Repository Date:3897-80-87EC [address]BMQ[address], [place] [address]WA: 06/19/2018 Tertiary NOT GIVENUNK [place] Insurance:SELF PAY [facility] Number: Effective Repository Date:2018-03-09 06/01/2018 DIAN V Primary DIAN V [place] [id number] Insurance:MEDICARE STEWARTDOB: Community AJAY PART A [id number] [place] Number: Repository [address]Ujo: 330 [id number] [phone] () Date:2018-03-09 06/01/2018 Secondary DIAN V [place] Insurance:CIGNAPolicy STEWARTDOB: Community Number: [id number] Hospital [id number] Repository Date:7484-43-06[address]PHQDARHKNGV, [place] [address]IX: 06/01/2018 Tertiary NOT GIVENUNK [place] Insurance:SELF PAY [facility] Number: Effective Repository Date:2018-06-01 05/29/2018 DIAN V Primary DIAN V [place] [id number] Insurance:MEDICARE STEWARTDOB: Community AJAY PART A [facility] [id number] Number: Repository [address]Bmg: 330 [id number] [phone] () Date:2018-05-29 05/29/2018 Secondary DIAN V [place] Insurance:CIGNAPolicy STEWARTDOB: Community Number: [id number] Hospital [id number] Repository Date:1222-77-50FM [address]UFJN[address], [place] [address]DX: 05/29/2018 Tertiary NOT GIVENUNK [place] Insurance:SELF PAY [facility] Number: Effective Repository Date:2018-05-29 05/25/2018 DIAN V Primary DIAN V [place] [id number] Insurance:MEDICARE STEWARTDOB: Community AJAY PART A [facility] [id number], [place] Number: Repository [address]Rep: 330 [id number] [phone] () Date:2018-05-19 05/25/2018 Secondary DIAN V [place] Insurance:CIGNAPolicy STEWARTDOB: Community Number: [id number] Hospital [id number] Repository Date:4531-77-02FO [address]NAWHOOVTKWA, [place] [address]UL: 05/25/2018 Tertiary NOT GIVENUNK [place] Insurance:SELF PAY [facility] Number: Effective Repository Date:2018-05-19 05/15/2018 DIAN V Primary DIAN V [place] [id number] Insurance:MEDICARE STEWARTDOB: Community AJAY PART A [facility] [id number], [place] Number: Repository [address]Rbl: 330 [id number] [phone] () Date:2018-05-15 05/15/2018 Secondary DIAN V [place] Insurance:CIGNAPolicy STEWARTDOB: Community Number: [id number] Hospital [id number] Repository Date:3574-73-31TJ [address]KENLWDMCFRG, [place] [address]OW: 05/15/2018 Tertiary NOT GIVENUNK [place] Insurance:SELF PAY [facility] Number: Effective Repository Date:2018-05-15 01/02/2018 DIAN V Primary DIAN V [place] [id number] Insurance:MEDICARE STEWARTDOB: Community AJAY PART A [facility] [id number] [facility] [place] Number: Repository [address]Dmm: 330 [id number] [phone] () Date:2017-12-12 01/02/2018 Secondary DIAN V [place] Insurance:CIGNAPolicy STEWARTDOB: Community Number: [id number] Hospital [id number] Repository Date:5317-25-88AZ [address]RQUZDKFOZEF, [place] [address]QC: 01/02/2018 Tertiary NOT GIVENUNK [place] Insurance:SELF PAY [facility] Number: Effective Repository Date:2017-12-12 2017 DIAN V Primary DIAN V [place] [id number] Insurance:MEDICARE STEWARTDOB: Community AJAY PART A [facility] [id number] [facility] [place] Number: Repository [address]Akn: 330 [id number] [phone] () Date:2017-12-12 2017 Secondary DIAN V [place] Insurance:CIGNAPolicy STEWARTDOB: Community Number: [id number] Hospital [id number] Repository Date:6370-32-25JS [address]DNRFJAD[address]J, [place] [address]NK: 2017 Tertiary NOT GIVENUNK [place] Insurance:SELF PAY [facility] Number: Effective Repository Date:2017 11/21/2017 DIAN V Primary DIAN V [place] [id number] Insurance:MEDICARE STEWARTDOB: Community AJAY PART A [facility] [id number] Memorial Hospital [place] Number: Repository [address]Lab: [phone]) [id number] [phone] () Date:2017-11-21 11/21/2017 Secondary DIAN V [place] Insurance:CIGNAPolicy STEWARTDOB: Community Number: [id number] Hospital [id number] Repository Date:5766-71-87PF [address]JKGAIFVLXFI, [place] [address]RE: 11/21/2017 Tertiary NOT GIVENUNK [place] Insurance:SELF PAY [facility] Number: Effective Repository Date:2017-11-21 11/02/2017 DIAN V Primary DIAN V [place] [id number] Insurance:MEDICARE STEWARTDOB: Community AJAY PART A [facility] [id number], [place] Number: Repository [address]Fid: (689) [id number] [phone] () Date:2017-10-25 11/02/2017 Secondary DIAN V [place] Insurance:CIGNAPolicy STEWARTDOB: Community Number: [id number] Hospital [id number] Repository Date:0457-09-09VD [address]TMPJYDGIVTW, [place] [address]TE: 11/02/2017 Tertiary NOT GIVENUNK [place] Insurance:SELF PAY [facility] Number: Effective Repository Date:2017-10-25 10/19/2017 DIAN V Primary DIAN V [place] [id number] Insurance:MEDICARE STEWARTDOB: Community AJAY PART A [facility] [id number], [place] Number: Repository [address]Kai: 330 [id number] [phone] () Date:2017-10-13 10/19/2017 Secondary DIAN V [place] Insurance:CIGNAPolicy STEWARTDOB: Community Number: [id number] Hospital [id number] Repository Date:2415-44-98AJ [address]UPTYWBDHPGA, [place] [address]WJ: 10/19/2017 Tertiary NOT GIVENUNK [place] Insurance:SELF PAY [facility] Number: Effective Repository Date:2017-10-13 10/10/2017 MIKE L Primary DIAN V [place] [id number] Insurance:MEDICARE STEWARTDOB: Community AJAY PART A [facility] [id number], [place] Number: Repository [address]Pbw: [phone]) [id number] [phone] () Date:2017-10-11 10/10/2017 Secondary DIAN Carolyne [place] Insurance:Artie CAMARGOB: [facility] Number: [id number] Hospital [id number] Repository Date:1286-60-77LP BILL 069317HPQTBRWHRMHMADAY [address]RB: 10/10/2017 Tertiary NOT GIVENBABAK [place] Insurance:SELF PAY [facility] Number: Effective Repository Date:2017-10-10
== END ==
PROVIDERS: Family Provider Family Medicine; PCP Family Medicine; Referring Provider Urology; Visit Provider Urology
DX: N20.0 Calculus of kidney (principal)
CPT/HCPCS: 74018

== ENCOUNTER → 2018-06-19 14:31 | Outpatient (CLI) | payer MEDICARE, OTHER, SELFPAY ==
--- NOTE | 2018-06-19 14:36 | BI_ITS ---
MAMMOGRAPHY - BILATERAL SCREENING REASON FOR EXAM: Female, 77 years old. Routine annual screening examination. PERTINENT HISTORY: Non-contributory. TECHNIQUE: Digital bilateral breast edie (3D mammographic acquisition) in the CC and MLO projections. 2-D mediolateral oblique (MLO) and craniocaudad (CC) views of both breasts were obtained. CAD: Full Field Digital Mammography with Computer Added Detection was performed. COMPARISON: Comparison is made with prior study dated April 05, 2017 and March 09, 2016. FINDINGS: Breast Composition: There are scattered areas of fibroglandular density. There are no dominant masses or suspicious calcifications. Stable small bilateral axillary lymph nodes. No other significant abnormalities are identified. There has been no significant change since the prior study. BI/SCREENING MAMM (CAD), BILAT IMPRESSION: Stable bilateral screening mammogram. Yearly follow-up mammogram recommended. (A) ASSESSMENT CATEGORY: BIRADS Category 2: Benign. A letter regarding these results will be sent to the patient by the facility within 30 days. Approximately 10% of breast cancers are not detected by mammography. A normal mammogram should not delay biopsy of a clinically suspicious abnormality. [id number] Electronically Signed: Ced Wallace MD at 14:12 EST Tel [phone], Service support ,
== END ==
PROVIDERS: Family Provider Family Medicine; PCP Family Medicine; Referring Provider Family Medicine; Visit Provider Family Medicine
DX: Z12.31 Encounter for screening mammogram for malignant neoplasm of breast (principal)
CPT/HCPCS: 77063; 77067

== ENCOUNTER 2018-06-23 12:28 | Day surgery (SDC) | payer MEDICARE, OTHER, SELFPAY ==
[2018-01-02 07:37] VITALS: BMI 22.1
--- NOTE | 2018-06-01 13:12 | EKG12_ITS ---
Test Reason : PRE OP Blood Pressure : / mmHG Vent. Rate : 074 BPM Atrial Rate : 074 BPM P-R Int : 108 ms QRS Dur : 078 ms QT Int : 358 ms P-R-T Axes : 031 -01 015 degrees QTc Int : 397 ms Sinus rhythm with short NM Otherwise normal ECG Confirmed by RUPERTO BINGHAM, ADALI ([id number]), science editor ALEYDA SARABIA ([id number] on 06/02/2018 12:00:28 PM Referred By: Felice Cuevas Confirmed By:ADALI HICKEY MD
--- NOTE | 2018-06-23 12:45 | RAD_ITS ---
STUDY: X-RAY - ABDOMEN/PELVIS REASON FOR EXAM: Female, 77 years old. History of kidney stone. Preprocedural imaging TECHNIQUE: Two AP supine views of the abdomen and pelvis. COMPARISON: 05/29/2018 FINDINGS: Normal visualized lung bases. There is an unremarkable bowel gas pattern. There is no demonstrated free abdominal air. The visualized liver, spleen and kidneys are grossly normal in size and morphology. Stable appearance of stone in the left lower pole renal shadow measuring 6.4 mm. Normal soft tissue structures. There are diffuse degenerative changes of the visualized lumbar spine. RAD/Abdomen Single View IMPRESSION: Stable left lower pole nephrolith. No acute findings Electronically Signed: Justin Moody DO at 13:33 EST Tel , Service support ,
[2018-06-23 13:08] VITALS: BP 147/72; PULSE 75; RESP 16; TEMP 36.8; O2SAT 95; BMI 22.3
[2018-06-23] MEDS: Cefazolin 2 GM in 0.9% Normal Saline 100 ML IV (14:21)
--- NOTE | 2018-06-23 15:03 | DCINST_ITS ---
Discharge Diet: Light diet - advance as tolerated Discharge Activity: Return to Normal Activity Instructions: Shock Wave Lithotripsy Allergies/Adverse Reactions: Allergies bee pollen Allergy (Verified 06/19/18 13:11) Rash Penicillins [PCN] Allergy (Verified 06/19/18 13:11) Rash atorvastatin [From Lipitor] Adverse Reaction (Verified 06/19/18 13:11) Other LEG WEAKNESS clindamycin Adverse Reaction (Verified 06/19/18 13:11) Diarrhea ibuprofen Adverse Reaction (Verified 06/19/18 13:11) Diarrhea Medications to take at Discharge Aspirin E.C. [Ecotrin] 81 mg PO DAILY@0800 10/27/17 Atenolol [Tenormin (Beta Ernetta)] 50 mg PO QHS 10/27/17 Pravastatin [Pravachol] 40 mg PO QHS 10/27/17 Cholecalciferol (Vitamin D3) [Vitamin D3] 1,000 unit PO BID 12/26/17 Vit C/E/Zn/Coppr/Lutein/Zeaxan [Preservision Areds 2 Softgel] 1 each PO DAILY 12/26/17 Primary Care Physician: Pérez Eddy MD [Primary Care Provider] - Test Results: Test results from this visit will be discussed in further detail at your follow- up appointment, if applicable. Please Follow Up With: Felice Cuevas MD When: in 2 weeks, please call to make an appointment.
--- NOTE | 2018-06-23 15:14 | PCM.OPRPT ---
Report of Operation Date of Procedure: 06/23/18 Pre-Operative Diagnosis: Left renal calculi Post-Operative Diagnosis: The same Surgery/Procedure Performed:: Left extracorporeal shockwave lithotripsy Description of Surgical Findings:: 77-year-old female who was found to have a 8 mm stone in the left UPJ area in the kidney presents to the hospital for shockwave lithotripsy. She was taken back to the operating room after smooth induction of general anesthesia she was placed supine on the lithotripter table we then localize the stone in the F2 focal point of the lithotripter machine and delivered a total of 3000 shockwaves to the stone at a rate of 60-90 shocks per minute. Power range up to 6-7 kV. At the end of the treatment the stone had broken up really well no visible fragments were seen on x-ray decided not to leave a stent and the patient says anesthesia and the patient anesthesia is currently being reversed she will follow-up in a few weeks with a KUB. Type of Anesthesia:: General - Admit VTE Documentation VTE Present on Admission: No VTE Mechan Device Prophylaxis: SCD's
[2018-06-23 15:20] VITALS: BP 147/72; BP 152/67; PULSE 89; RESP 18; TEMP 36.5; O2SAT 98
[2018-06-23 15:30] VITALS: BP 112/73; BP 147/72; PULSE 80; RESP 18; O2SAT 98
[2018-06-23 15:45] VITALS: BP 143/69; BP 147/72; PULSE 76; RESP 18; TEMP 36.7; O2SAT 96
[2018-06-23 16:20] VITALS: BP 147/72; BP 156/64; PULSE 76; RESP 16; TEMP 36.2; O2SAT 100
== END 2018-06-23 16:25 | disposition home or self-care (01) ==
LOC: SDC 12:30 → AC 12:30
PROVIDERS: Family Provider Family Medicine; PCP Family Medicine; Referring Provider Urology; Visit Provider Urology
PROC: (CPT 50590; principal; 2018-06-23 14:05)
DX: N20.0 Calculus of kidney (principal); E78.00 Pure hypercholesterolemia, unspecified; Z79.82 Long term (current) use of aspirin; Z79.899 Other long term (current) drug therapy; I10 Essential (primary) hypertension
CPT/HCPCS: 50590; 74018; 93005; J7120; J2405

== ENCOUNTER → 2018-07-20 12:32 | Outpatient (CLI) | payer MEDICARE, OTHER, SELFPAY ==
[2018-06-23 13:08] VITALS: BMI 22.3
--- NOTE | 2018-07-20 | CYSPIN_PTH ---
PATIENT: PHANI PIERRE LOC: [facility] U#:[id number] AGE/SX: 84/F ROOM: RE07/20/[address]: Dr. Felice Cuevas MD : 1940 BED: DIS: SPEC #: [id number] RECD: 07/21/18 09:28 STATUS: VAIBHAV GISELLA #: [id number] LOBO: 07/20/18 00:[address]: Felice Cuevas DEPT: CYTOLOGY RECD BY: Jayy Horner ENTERED: 07/21/18 09:31 SP TYPE: CYSPIN FL OTHR DR: Dr. Pérez Eddy MD Tissues: Urine Procedures: Pap Stain (control) Special Stain Group II Cytospin Fluid HEADER OPERATION: Not noted PRE-OP DIAGNOSIS: Hematuria TISSUE SUBMITTED: Urine for cytology DIAGNOSIS CYTOLOGY Urine for cytology (cytospin): Rare atypical urothelial cells are present. See comment. AM:michelle 07/24/18 COMMENT The findings are nonspecific and could represent a variety of conditions including infection, urolithiasis, instrumentation and low grade urothelial neoplasm. The specimen primarily consists of benign squamous epithelial cells. Clinical correlation is necessary. CYTOLOGY STUDY Slides are reviewed. CYTOLOGY GROSS Received is 25 ml of clear yellow fluid labeled with the patient's name and and designated per the requisition as urine. Submitted for cytology preparation. 07/21/18 TC:5 CPT: 36925
--- NOTE | 2018-07-20 12:35 | RAD_ITS ---
STUDY: X-RAY - ABDOMEN/PELVIS REASON FOR EXAM: Female, 77 years old. History of kidney stones. TECHNIQUE: Single AP view of the abdomen / pelvis. COMPARISON: 06/23/2014. FINDINGS: There is a moderate amount of colonic fecal material. There are nonspecific gaseous small bowel loops and colon. The previously noted calcification overlying the lower pole of the left kidney is not definitely identified on this examination. A few pelvic calcifications are seen likely due to phleboliths. There is no demonstrated acute osseous changes. RAD/Abdomen Single View IMPRESSION: 1. No abnormal calcifications are seen at this time in the region of the kidneys. 2. Multiple pelvic calcifications which could be due to phleboliths. Distal ureteral stone cannot be excluded. Electronically Signed: Jarrod Westfall MD at 12:36 EST Tel , Service support ,
[2018-07-20 17:29] LABS: Cytology, Body Fluid / CSF SEE PATHOLOGY REPORT
== END ==
PROVIDERS: Family Provider Family Medicine; PCP Family Medicine; Referring Provider Urology; Visit Provider Urology
DX: N20.0 Calculus of kidney (principal); R31.9 Hematuria, unspecified
CPT/HCPCS: 74018; 88108; 88313

== ENCOUNTER → 2018-07-27 05:51 | Outpatient (CLI) | payer MEDICARE, OTHER, SELFPAY ==
[2018-07-25 13:31] VITALS: BMI 22.6
[2018-07-27 08:18] LABS: AST(SGOT) 16 U/L (15-37); Alanine Aminotransfer ALT/SGPT 24 U/L (13-56); Albumin, Serum 3.3 g/dL (3.2-5.0); Alkaline Phosphatase 92 U/L (45-117); Bilirubin, Direct 0.19 mg/dL (0.00-0.30); Cholesterol 184 mg/dL (200); Globulin 3.9 g/dL (2.2-4.2); High Density Lipoprotein 45 mg/dL; Protein, Total 7.2 g/dL (6.4-8.2); T4 Total, Thyroxin 7.2 ug/dL (4.8-13.9); Thyroid Stim Hormone (TSH) 2.45 uIU/mL (0.358-3.74); Triglycerides 176 mg/dL; Very Low Density Lipoprotein 35 mg/dL (5-40)
== END ==
PROVIDERS: Family Provider Family Medicine; PCP Family Medicine; Referring Provider Internal Medicine Cardiovascular Disease; Visit Provider Internal Medicine Cardiovascular Disease
DX: E78.5 Hyperlipidemia, unspecified (principal); R00.2 Palpitations
CPT/HCPCS: 36415; 80061; 80076; 84436; 84443

== ENCOUNTER → 2018-08-04 12:48 | Outpatient (CLI) | payer MEDICARE, OTHER, SELFPAY ==
[2018-07-25 13:31] VITALS: BMI 22.6
--- NOTE | 2018-08-04 12:51 | ECHOD_ITS ---
Reason For Study: palpitations Procedure This was a 2D Doppler, Color Flow transthoracic echocardiogram. Exam performed in department. Left Ventricle Normal size and thickness. The estimated ejection fraction is 65-75 %. Stage 1 diastolic dysfunction. No regional wall motion abnormalities noted. Right Ventricle Normal size and thickness. Normal systolic function. Atria Normal left atrium. Normal right atrium. Normal atrial septum. Mitral Valve The mitral valve is structurally normal. No prolapse or stenosis seen. Tricuspid Valve Normal tricuspid valve. Trivial tricuspid valve insufficiency. Right ventricular systolic pressure estimated to be 30 mmHg. Aortic Valve Trisinus/trileaflet aortic valve. Mild diffuse aortic valve thickening. Trivial aortic valve insufficiency. Pulmonic Valve Normal pulmonic valve. Trivial pulmonic valve insufficiency. Great Vessels Normal aortic root. Normal arch. Normal inferior vena cava. Inferior vena cava collapse with sniff. Pericardium/Pleural No pericardial effusion. MMode/2D Measurements & Calculations LVIDd: 4.0 cm IVSd: 0.97 cm Ao root diam: 3.1 cm LVIDs: 2.6 cm LVPWd: 0.96 cm RVDd: 2.6 cm FS: 35.4 % LAV(MOD-bp): 45.4 ml LVAd ap4: 21.4 cm2 SV(MOD-sp4): 32.7 ml LAV(MOD-bp) Indexed: 29.2 ml/m2 EDV(MOD-sp4): 53.8 ml LAV(MOD-sp2): 50.4 ml EDV(sp4-el): 54.6 ml LAV(MOD-sp4): 39.5 ml LVAs ap4: 11.7 cm2 ESV(MOD-sp4): 21.1 ml ESV(sp4-el): 21.1 ml EF(MOD-sp4): 60.8 % EF(sp4-el): 61.4 % SV(sp4-el): 33.5 ml LA A4 area: 15.7 cm2 LA dimension(2D): 3.3 cm RA A4 area: 12.4 cm2 Time Measurements MV dec time: 0.23 sec Doppler Measurements & Calculations MV E max victor manuel: 83.1 cm/sec Lat Peak E' Victor Manuel: 5.8 cm/sec Med Peak E' Victor Manuel: 6.6 cm/sec MV A max victor manuel: 102.4 cm/sec E/E' lat: 14.3 E/E' med: 12.5 MV E/A: 0.81 Ao V2 max: 158.1 cm/sec LV V1 max: 107.3 cm/sec PA V2 max: 82.6 cm/sec Ao max P.0 mmHg LV V1 max P.6 mmHg TR max victor manuel: 248.3 cm/sec TR max P.7 mmHg Interpretation Summary The estimated ejection fraction is 65-75 %. Stage 1 diastolic dysfunction. Trivial tricuspid valve insufficiency. Right ventricular systolic pressure estimated to be 30 mmHg. Trivial aortic valve insufficiency. Trivial pulmonic valve insufficiency. There is no comparison study available. Ordering Physician: Javy Hatch Referring Physician: Titi Eddy Performed By: Taylor Henley, AL[place], RVT
== END ==
PROVIDERS: Family Provider Family Medicine; PCP Family Medicine; Referring Provider Internal Medicine Cardiovascular Disease; Visit Provider Internal Medicine Cardiovascular Disease
DX: R00.2 Palpitations (principal)
CPT/HCPCS: 93225; 93226; 93306

== ENCOUNTER → 2018-08-10 10:21 | Outpatient (CLI) | payer MEDICARE, OTHER, SELFPAY ==
[2018-07-25 13:31] VITALS: BMI 22.6
--- NOTE | 2018-08-10 10:22 | STE_ITS ---
Reason For Study: PALPITATIONS/TACHYCARDIA Stress Results Protocol: Stress Echocardiogram Maximum Predicted HR: 145 bpm Target HR: 123 bpm % Maximum Predicted HR: 125 % DurationHeart Rate Stage (mm:ss) (bpm) BP BASELINE 86 160/78 MIRIAM PROTOCOL- STAGE 1 3:00 166 142/70 MIRIAM PROTOCOL- STAGE 2 1:22 181 / RECOVERY 102 128/70 Stress Duration: 4:22 mm:ss Maximum Stress HR: 181 bpm Baseline Echocardiogram Findings The estimated ejection fraction is 65 %. Stress Echo Wall motion Data Resting WM Intermediate WM Stress WM Resting Wall Motion Wall Motion Stress No regional wall motion No regional wall motion abnormalities noted. abnormalities noted. EKG Data Normal intervals are noted. The patient exercised according to the regular Miriam protocol for a total duration of 4:22. The maximum heart rate attained was 181 beats per minute. This was 124% of maximum predicted heart rate. The patient exercised into stage 2 of the Miriam protocol. At peak exercise, upsloping ST changes only were noted, which did not meet the criteria for ischemia. No clinical angina was noted. Interpretation Summary The estimated ejection fraction is 65 %. Normal, adequate, treadmill echocardiogram. Negative for ischemia by EKG and echocardiographic criteria. No anginal symptoms noted. Rare PAC noted. Appropriate blood pressure response to exercise. Below average exercise capacity for age. Final LVEF of 75%. Test terminated due to the attainment of target heart rate and leg discomfort. No complications. Ordering Physician: Holden^Javy^^^ Referring Physician: Javy Hatch Performed By:
== END ==
PROVIDERS: Family Provider Family Medicine; PCP Family Medicine; Referring Provider Internal Medicine Cardiovascular Disease; Visit Provider Internal Medicine Cardiovascular Disease
DX: R00.2 Palpitations (principal); R00.0 Tachycardia, unspecified; E78.5 Hyperlipidemia, unspecified; I10 Essential (primary) hypertension; I49.1 Atrial premature depolarization
CPT/HCPCS: 93017; 93350

== ENCOUNTER → 2018-08-14 06:42 | Outpatient (CLI) | payer MEDICARE, OTHER, SELFPAY ==
[2018-07-25 13:31] VITALS: BMI 22.6
--- NOTE | 2018-08-14 06:45 | CT_ITS ---
STUDY: CT ABDOMEN AND PELVIS WITH CONTRAST REASON FOR EXAM: Female, 77 years old. Hematuria RADIATION DOSAGE (If Supplied By Facility): CTDIvol = ( 12.70 ) mGy, DLP = ( 851.96 ) mGycm TECHNIQUE: Transaxial images were obtained from the dome of the diaphragm to the symphysis pubis without oral contrast. Isovue 300 100mL IV was administered. Sagittal and coronal images were reconstructed. Individualized dose optimization techniques were used for this CT. COMPARISON: May 25, 2018 CT scan abdomen and pelvis FINDINGS: The visualized lung bases are unremarkable. The visualized portions of the heart are within normal limits. Normal liver. Normal gallbladder and extrahepatic biliary system. Normal spleen. Normal pancreas. Normal bilateral adrenal glands. There is a stable appearance of the right kidney with multiple right side zuleyma- Pelvic cysts which are relatively unchanged since the prior study. There is no significant distention of the right ureter. There is a thin-walled appearance of the upper pole of the left kidney which is similar to the prior study. The stone that was seen in the proximal left ureter on the prior study is no longer visualized. There is a punctate stone demonstrated in the left kidney without evidence of internal hydronephrosis. Normal visualized stomach. Normal small intestine. There is mild to moderate stool in the colon. There is diverticulosis without diverticulitis. The appendix is visualized and appears normal. There is diffuse atherosclerotic calcification of the abdominal aorta, without a demonstrated aneurysm. Normal inferior vena cava. Allowing for mixing of contrast there is a focal filling defect within the left side gonadal vein. This is subtle but possibly seen on the prior study. Normal urinary bladder. The uterus is of normal size. Endometrium measures up to 9 mm which can be atypical for age. There is a calcified fibroid in the posterior aspect of the fundus measuring 2.2 x 1.9 cm. There is a small umbilical hernia containing fat. There are diffuse degenerative changes of the visualized lumbar spine. CT/Abdomen/Pelvis WITH Contrast IMPRESSION: There are stable bilateral peripelvic cysts without evidence of new or interval hydronephrosis. The left kidney is less distended than seen on prior study and there is no evidence of stones along the course of the left ureter as seen on prior study. There is minimal left side pelviectasis. The Hounsfield units are minimally complex. There is a punctate stone in the left kidney without evidence of hydronephrosis. 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 The recommend consideration for follow-up ultrasound and/or consideration for MRI. Clinically appropriate. Stable but mildly thickened appearance of the endometrium, and uterine fibroid recommend follow-up pelvic ultrasound when appropriate. 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 Electronically Signed: Shira Pierre MD at 19:44 EST Tel , Service support ,
[2018-08-14 07:16] LABS: CREATININE FINGERSTICK 0.9 mg/dL (0.55-1.02)
== END ==
PROVIDERS: Family Provider Family Medicine; PCP Family Medicine; Referring Provider Urology; Visit Provider Urology
DX: R88.8 Abnormal findings in other body fluids and substances (principal)
CPT/HCPCS: 74177; Q9967

== ENCOUNTER → 2019-07-24 | Outpatient (CLI) | payer MEDICARE, OTHER, SELFPAY ==
[2019-06-19 11:49] VITALS: BMI 22.4
--- NOTE | 2019-07-24 16:00 | CYSPIN_PTH ---
PATIENT: PHANI PIERRE [facility] U[facility][id number] AGE/SX: 78/F ROOM: RE07/24/[address]: Dr. Felice Cuevas MD : 1940 BED: DIS: 07/24/2019 SPEC #: [id number] RECD: 07/25/19 09:29 STATUS: VAIBHAV REBhavna #: [id number] LOBO: 07/24/19 16:[address]: Felice Cuevas DEPT: CYTOLOGY RECD BY: Tripp Osuna ENTERED: 07/25/19 09:35 SP TYPE: CYSPIN FL OTHR DR: Dr. Pérez Eddy MD Tissues: Urine Procedures: Pap Stain (control) Special Stain Group II Cytospin Fluid HEADER OPERATION: Not noted PRE-OP DIAGNOSIS: Hematuria TISSUE SUBMITTED: Urine for cytology DIAGNOSIS CYTOLOGY Urine for cytology (cytospin): Negative for malignant cells. See comment. AM:michelle 07/26/19 COMMENT The specimen primarily contains squamous epithelial cells. Clinical correlation is suggested. CYTOLOGY STUDY Slides are reviewed. CYTOLOGY GROSS Received is 5 ml of light yellow cloudy fluid labeled with the patient's name and and designated per the requisition as urine. Submitted for cytology preparation. / michelle 07/25/19 TC:5 CPT: 49649
[2019-07-24 16:01] LABS: Cytology, Body Fluid / CSF SEE PATHOLOGY REPORT
== END | disposition home or self-care (01) ==
LOC: LABSPEC 15:48
PROVIDERS: PCP Family Medicine; Referring Provider Urology; Visit Provider Urology
DX: R31.9 Hematuria, unspecified (principal)
CPT/HCPCS: 88108; 88313

== ENCOUNTER → 2019-11-02 13:55 | Outpatient (CLI) | payer MEDICARE, OTHER, SELFPAY ==
[2019-06-19 11:49] VITALS: BMI 22.4
[2019-11-02 15:11] LABS: Absolute Lymphocyte Count 1.49 X10^3/uL (0.83-4.51); Absolute Neutrophil Count 8.7 X10^3/uL (2.0-7.7); Basophil# 0.07 X10^3/uL; Basophil% 0.6 % (0-1); Eosinophil# 0.12 X10^3/uL; Eosinophils% 1.1 % (0-5); Hematocrit 41.4 % (37-47); Hemoglobin 12.7 g/dL (12.0-15.0); Lymphocyte # 1.49 X10^3/ul (4.0); Lymphocyte % 13.5 % (19-41); Mean Corp Hgb Conc 30.7 g/dL (32-36); Mean Corpuscular Hgb 27.5 pg (27.0-32.0); Mean Corpuscular Volume 89.8 fL (81-99); Mean Platelet Vol. 10.5 fl (6.2-12.0); Monocyte# 0.68 X10^3/uL; Monocyte% 6.1 % (0-10); NRBC Flagged by Analyzer 0 % (0-5); Neutrophil # 8.65 X10^3/uL (2.7-7.7); Neutrophil % 78.2 % (47-70); Platelet Count 406 K/mm3 (150-450); RBC Distribution Width CV 12.6 % (11.6-14.6); RBC Distribution Width SD 41.3 fl (35.1-43.9); Red Blood Count 4.61 M/mm3 (4.2-5.4); White Blood Count 11.1 K/mm3 (4.4-11.0)
[2019-11-02 15:28] LABS: Erythrocyte Sedimentation Rate 36 mm/hr (0-30)
[2019-11-02 16:03] LABS: ALB/GLOB Ratio 0.8 RATIO (0.9-2.4); AST(SGOT) 15 U/L (15-37); Alanine Aminotransfer ALT/SGPT 27 U/L (13-56); Albumin, Serum 3.3 g/dL (3.2-5.0); Alkaline Phosphatase 97 U/L (45-117); Anion Gap 5 (5-15); BUN 17 mg/dL (7-18); BUN/Creat Ratio 18.9 RATIO (10-20); CRP 9.22 mg/L (0.0-3.0); Calcium,Total 9.3 mg/dL (8.5-10.1); Chloride 101 mmol/L (98-107); EST Glomerular Filtration Rate 65 mL/min (>60); Est Glom Filt Rate - Afr Amer 78 mL/min (>60); Globulin 4.1 g/dL (2.2-4.2); Glucose 111 mg/dL (74-106); Protein, Total 7.4 g/dL (6.4-8.2); Rheumatoid Factor < 10.0 IU/mL (<15); Sodium Level 138 mmol/L (136-145)
[2019-11-05 09:48] LABS: Hepatitis B Surface Antibody Reactive; Hepatitis B Surface Antigen Non-Reactive (Nonreactive); Hepatitis C Antibody Non-Reactive (Nonreactive)
[2019-11-06 15:39] LABS: ANTINUCLEAR ANTIBODIES DIRECT Negative (Negative)
[2019-11-07 06:51] LABS: CCP IgG Antibodies 17 units (0-19); Hepatitis B Core AB IgM Negative (Negative)
== END ==
PROVIDERS: PCP Family Medicine; Referring Provider Internal Medicine Rheumatology; Visit Provider Internal Medicine Rheumatology
DX: M06.4 Inflammatory polyarthropathy (principal); M18.0 Bilateral primary osteoarthritis of first carpometacarpal joints; Q66.70 Congenital pes cavus, unspecified foot; I10 Essential (primary) hypertension; E78.5 Hyperlipidemia, unspecified; Z87.442 Personal history of urinary calculi
CPT/HCPCS: 80053; 85025; 85652; 86038; 86140; 86200; 86431; 86705; 86706; 86803; 87340

== ENCOUNTER → 2019-12-20 15:34 | Outpatient (CLI) | payer MEDICARE, OTHER, SELFPAY ==
[2019-06-19 11:49] VITALS: BMI 22.4
--- NOTE | 2019-12-20 15:36 | BI_ITS ---
MAMMOGRAPHY - BILATERAL SCREENING REASON FOR EXAM: Female, 78 years old. Routine annual screening examination. PERTINENT HISTORY: Non-contributory. TECHNIQUE: Digital bilateral breast izabella (3D mammographic acquisition) in the CC and MLO projections. 2-D mediolateral oblique (MLO) and craniocaudad (CC) views of both breasts were obtained. CAD: Full Field Digital Mammography with Computer Added Detection was performed. COMPARISON: Comparison is made with prior study dated June 19, 2018 and April 05, 2017. FINDINGS: Breast Composition: There are scattered areas of fibroglandular density. There are no dominant masses or suspicious calcifications. Stable small bilateral axillary lymph nodes. No other significant abnormalities are identified. There has been no significant change since the prior study. BI/SCREEN MAMM (CAD) W/IZABELLA BILAT IMPRESSION: Stable bilateral screening mammogram. Yearly follow-up mammogram recommended. (A) ASSESSMENT CATEGORY: BIRADS Category 2: Benign. A letter regarding these results will be sent to the patient by the facility within 30 days. Approximately 10% of breast cancers are not detected by mammography. A normal mammogram should not delay biopsy of a clinically suspicious abnormality. [id number] Electronically Signed: Ced Wallace, at 8:12 EDT , Service support ,
== END ==
PROVIDERS: PCP Family Medicine; Referring Provider Obstetrics & Gynecology; Visit Provider Obstetrics & Gynecology
DX: Z12.31 Encounter for screening mammogram for malignant neoplasm of breast (principal)
CPT/HCPCS: 77063; 77067

== ENCOUNTER → 2020-02-12 08:10 | Outpatient (CLI) | payer MEDICARE, OTHER, SELFPAY ==
[2019-06-19 11:49] VITALS: BMI 22.4
[2020-02-12 08:50] LABS: Erythrocyte Sedimentation Rate 10 mm/hr (0-30)
[2020-02-12 08:52] LABS: Absolute Lymphocyte Count 0.99 X10^3/uL (0.83-4.51); Absolute Neutrophil Count 6.6 X10^3/uL (2.0-7.7); Basophil# 0.07 X10^3/uL; Basophil% 0.8 % (0-1); Eosinophil# 0.07 X10^3/uL; Eosinophils% 0.8 % (0-5); Hematocrit 41.8 % (37-47); Hemoglobin 13.4 g/dL (12.0-15.0); Lymphocyte # 0.99 X10^3/ul (4.0); Lymphocyte % 11.8 % (19-41); Mean Corp Hgb Conc 32.1 g/dL (32-36); Mean Corpuscular Hgb 28.5 pg (27.0-32.0); Mean Corpuscular Volume 88.9 fL (81-99); Mean Platelet Vol. 10.7 fl (6.2-12.0); Monocyte# 0.66 X10^3/uL; Monocyte% 7.8 % (0-10); NRBC Flagged by Analyzer 0 % (0-5); Neutrophil # 6.59 X10^3/uL (2.7-7.7); Neutrophil % 78.4 % (47-70); Platelet Count 344 K/mm3 (150-450); RBC Distribution Width CV 12.6 % (11.6-14.6); RBC Distribution Width SD 41.2 fl (35.1-43.9); White Blood Count 8.4 K/mm3 (4.4-11.0)
[2020-02-12 09:25] LABS: ALB/GLOB Ratio 0.9 RATIO (0.9-2.4); AST(SGOT) 20 U/L (15-37); Alanine Aminotransfer ALT/SGPT 29 U/L (13-56); Albumin, Serum 3.5 g/dL (3.2-5.0); Alkaline Phosphatase 89 U/L (45-117); Anion Gap 3 (5-15); BUN 21 mg/dL (7-18); BUN/Creat Ratio 26.9 RATIO (10-20); CRP < 2.90 mg/L (0.0-3.0); Calcium,Total 9.1 mg/dL (8.5-10.1); Chloride 105 mmol/L (98-107); Creatinine, Serum 0.78 mg/dL (0.55-1.02); EST Glomerular Filtration Rate 76 mL/min (>60); Est Glom Filt Rate - Afr Amer 92 mL/min (>60); Glucose 108 mg/dL (74-106); Potassium 4.5 mmol/L (3.5-5.1); Protein, Total 7.5 g/dL (6.4-8.2); Sodium Level 138 mmol/L (136-145)
== END ==
PROVIDERS: PCP Family Medicine; Referring Provider Internal Medicine Rheumatology; Visit Provider Internal Medicine Rheumatology
DX: M06.4 Inflammatory polyarthropathy (principal); M18.0 Bilateral primary osteoarthritis of first carpometacarpal joints; Q66.70 Congenital pes cavus, unspecified foot; I10 Essential (primary) hypertension; E78.5 Hyperlipidemia, unspecified; Z87.442 Personal history of urinary calculi
CPT/HCPCS: 36415; 80053; 85025; 85652; 86140

== ENCOUNTER → 2020-06-20 06:40 | Outpatient (CLI) | payer MEDICARE, OTHER, SELFPAY ==
[2020-06-19 07:59] VITALS: BMI 21.0
[2020-06-20 08:16] LABS: AST(SGOT) 14 U/L (15-37); Alanine Aminotransfer ALT/SGPT 25 U/L (13-56); Albumin, Serum 3.4 g/dL (3.2-5.0); Alkaline Phosphatase 91 U/L (45-117); Bilirubin, Direct 0.13 mg/dL (0.00-0.30); Cholesterol 156 mg/dL (200); Globulin 3.8 g/dL (2.2-4.2); High Density Lipoprotein 53 mg/dL; Protein, Total 7.2 g/dL (6.4-8.2); Triglycerides 111 mg/dL; Very Low Density Lipoprotein 22 mg/dL (5-40)
== END ==
PROVIDERS: PCP Family Medicine; Referring Provider Internal Medicine Cardiovascular Disease; Visit Provider Internal Medicine Cardiovascular Disease
DX: E78.00 Pure hypercholesterolemia, unspecified (principal)
CPT/HCPCS: 36415; 80061; 80076

== ENCOUNTER → 2020-08-05 06:17 | Outpatient (CLI) | payer MEDICARE, OTHER, SELFPAY ==
[2020-06-19 07:59] VITALS: BMI 21.0
[2020-08-05 07:35] LABS: Absolute Lymphocyte Count 1.35 X10^3/uL (0.83-4.51); Absolute Neutrophil Count 7.6 X10^3/uL (2.0-7.7); Basophil# 0.07 X10^3/uL; Basophil% 0.7 % (0-1); Eosinophil# 0.11 X10^3/uL; Eosinophils% 1.1 % (0-5); Hematocrit 41.6 % (37-47); Hemoglobin 12.8 g/dL (12.0-15.0); Lymphocyte # 1.35 X10^3/ul (4.0); Lymphocyte % 13.7 % (19-41); Mean Corp Hgb Conc 30.8 g/dL (32-36); Mean Corpuscular Hgb 27.8 pg (27.0-32.0); Mean Corpuscular Volume 90.4 fL (81-99); Mean Platelet Vol. 10.4 fl (6.2-12.0); Monocyte# 0.66 X10^3/uL; Monocyte% 6.7 % (0-10); NRBC Flagged by Analyzer 0 % (0-5); Neutrophil # 7.61 X10^3/uL (2.7-7.7); Neutrophil % 77.3 % (47-70); Platelet Count 379 K/mm3 (150-450); RBC Distribution Width CV 12.6 % (11.6-14.6); RBC Distribution Width SD 41.1 fl (35.1-43.9); White Blood Count 9.9 K/mm3 (4.4-11.0)
[2020-08-05 08:07] LABS: ALB/GLOB Ratio 0.9 RATIO (0.9-2.4); AST(SGOT) 17 U/L (15-37); Alanine Aminotransfer ALT/SGPT 29 U/L (13-56); Albumin, Serum 3.3 g/dL (3.2-5.0); Alkaline Phosphatase 82 U/L (45-117); Anion Gap 5 (5-15); BUN 19 mg/dL (7-18); BUN/Creat Ratio 23.7 RATIO (10-20); Calcium,Total 8.9 mg/dL (8.5-10.1); Chloride 106 mmol/L (98-107); EST Glomerular Filtration Rate 74 mL/min (>60); Est Glom Filt Rate - Afr Amer 89 mL/min (>60); Globulin 3.8 g/dL (2.2-4.2); Glucose 88 mg/dL (74-106); Potassium 3.8 mmol/L (3.5-5.1); Protein, Total 7.1 g/dL (6.4-8.2); Sodium Level 141 mmol/L (136-145)
== END ==
PROVIDERS: PCP Family Medicine; Referring Provider Internal Medicine Rheumatology; Visit Provider Internal Medicine Rheumatology
DX: M06.4 Inflammatory polyarthropathy (principal); M18.0 Bilateral primary osteoarthritis of first carpometacarpal joints; Q66.70 Congenital pes cavus, unspecified foot; E78.5 Hyperlipidemia, unspecified; I10 Essential (primary) hypertension; Z87.442 Personal history of urinary calculi
CPT/HCPCS: 36415; 80053; 85025

== ENCOUNTER 2020-08-14 15:39 | Outpatient (RCR) | payer MEDICARE, OTHER, SELFPAY ==
[2020-06-19 07:59] VITALS: BMI 21.0
[2020-08-14] MEDS: COVID-19 VACC, MRNA(PFIZER)/PF 30 MCG/0.3 ML SYRINGE IM (07:05)
[2020-09-04] MEDS: COVID-19 VACC, MRNA(PFIZER)/PF 30 MCG/0.3 ML SYRINGE IM (07:07)
== END 2020-08-14 23:59 ==
LOC: IMMUN 15:39
PROVIDERS: PCP Internal Medicine; Visit Provider Family Medicine
DX: Z23 Encounter for immunization (principal)
CPT/HCPCS: 0001A; 0002A

== ENCOUNTER → 2020-12-17 06:05 | Outpatient (CLI) | payer MEDICARE, OTHER, SELFPAY ==
[2020-09-03 09:10] VITALS: BMI 21.0
[2020-12-17 08:30] LABS: AST(SGOT) 19 U/L (15-37); Alanine Aminotransfer ALT/SGPT 25 U/L (13-56); Albumin, Serum 3.2 g/dL (3.2-5.0); Alkaline Phosphatase 80 U/L (45-117); Bilirubin, Direct 0.11 mg/dL (0.00-0.30); Cholesterol 166 mg/dL (200); Globulin 3.5 g/dL (2.2-4.2); High Density Lipoprotein 51 mg/dL; Protein, Total 6.7 g/dL (6.4-8.2); Triglycerides 92 mg/dL; Very Low Density Lipoprotein 18 mg/dL (5-40)
== END ==
PROVIDERS: PCP Internal Medicine; Referring Provider Internal Medicine Cardiovascular Disease; Visit Provider Internal Medicine Cardiovascular Disease
DX: E78.00 Pure hypercholesterolemia, unspecified (principal); E78.5 Hyperlipidemia, unspecified
CPT/HCPCS: 36415; 80061; 80076

== ENCOUNTER → 2021-02-02 06:17 | Outpatient (CLI) | payer MEDICARE, OTHER, SELFPAY ==
[2021-02-02 07:45] LABS: Absolute Lymphocyte Count 1.34 X10^3/uL (0.83-4.51); Absolute Neutrophil Count 7.1 X10^3/uL (2.0-7.7); Basophil# 0.08 X10^3/uL; Basophil% 0.9 % (0-1); Eosinophil# 0.15 X10^3/uL; Eosinophils% 1.6 % (0-5); Hematocrit 40.6 % (37-47); Hemoglobin 12.7 g/dL (12.0-15.0); Lymphocyte # 1.34 X10^3/ul (0.83-4.51); Lymphocyte % 14.3 % (19-41); Mean Corp Hgb Conc 31.3 g/dL (32-36); Mean Corpuscular Hgb 28.4 pg (27.0-32.0); Mean Corpuscular Volume 90.8 fL (81-99); Mean Platelet Vol. 10.4 fl (6.2-12.0); Monocyte# 0.65 X10^3/uL; NRBC Flagged by Analyzer 0 % (0-5); Neutrophil # 7.07 X10^3/uL (2.7-7.7); Neutrophil % 75.6 % (47-70); Platelet Count 357 K/mm3 (150-450); RBC Distribution Width CV 12.5 % (11.6-14.6); RBC Distribution Width SD 41.5 fl (35.1-43.9); Red Blood Count 4.47 M/mm3 (4.2-5.4); White Blood Count 9.4 K/mm3 (4.4-11.0)
[2021-02-02 08:21] LABS: Erythrocyte Sedimentation Rate 7 mm/hr (0-30)
[2021-02-02 08:25] LABS: ALB/GLOB Ratio 0.9 RATIO (0.9-2.4); AST(SGOT) 16 U/L (15-37); Alanine Aminotransfer ALT/SGPT 27 U/L (13-56); Albumin, Serum 3.3 g/dL (3.2-5.0); Alkaline Phosphatase 73 U/L (45-117); Anion Gap 3 (5-15); BUN 17 mg/dL (7-18); BUN/Creat Ratio 23.9 RATIO (10-20); CRP < 2.90 mg/L (0.0-3.0); Calcium,Total 8.7 mg/dL (8.5-10.1); Chloride 106 mmol/L (98-107); Creatinine, Serum 0.71 mg/dL (0.55-1.02); EST Glomerular Filtration Rate 85 mL/min (>60); Est Glom Filt Rate - Afr Amer 102 mL/min (>60); Globulin 3.5 g/dL (2.2-4.2); Glucose 101 mg/dL (74-106); Protein, Total 6.8 g/dL (6.4-8.2); Sodium Level 140 mmol/L (136-145)
== END ==
PROVIDERS: PCP Internal Medicine; Referring Provider Internal Medicine Rheumatology; Visit Provider Internal Medicine Rheumatology
DX: M06.4 Inflammatory polyarthropathy (principal); M18.0 Bilateral primary osteoarthritis of first carpometacarpal joints; Q66.70 Congenital pes cavus, unspecified foot; I10 Essential (primary) hypertension; E78.5 Hyperlipidemia, unspecified; Z87.442 Personal history of urinary calculi
CPT/HCPCS: 36415; 80053; 85025; 85652; 86140

== ENCOUNTER → 2021-03-04 08:55 | Outpatient (CLI) | payer MEDICARE, OTHER, SELFPAY ==
[2021-03-04 12:25] LABS: Vitamin D,25 Hydroxy 55.7 ng/mL
== END ==
PROVIDERS: PCP Internal Medicine; Visit Provider Internal Medicine
DX: E55.9 Vitamin D deficiency, unspecified (principal)
CPT/HCPCS: 36415; 82306

== ENCOUNTER 2021-07-08 06:24 | Outpatient (CLI) | payer MEDICARE, OTHER, SELFPAY ==
[2021-07-08 08:42] LABS: Magnesium 2.3 mg/dL (1.6-2.6)
[2021-07-08 10:47] LABS: AST(SGOT) 17 U/L (15-37); Alanine Aminotransfer ALT/SGPT 30 U/L (13-56); Albumin, Serum 3.3 g/dL (3.2-5.0); Alkaline Phosphatase 78 U/L (45-117); Bilirubin, Direct 0.14 mg/dL (0.00-0.30); Cholesterol 165 mg/dL (200); Globulin 3.6 g/dL (2.2-4.2); High Density Lipoprotein 51 mg/dL; Protein, Total 6.9 g/dL (6.4-8.2); Triglycerides 107 mg/dL; Very Low Density Lipoprotein 21 mg/dL (5-40)
== END 2021-07-08 23:59 | disposition short-term general hospital (02) ==
LOC: LAB 06:26
PROVIDERS: Anesthesiology; PCP Internal Medicine; Referring Provider Internal Medicine Cardiovascular Disease; Visit Provider Internal Medicine Cardiovascular Disease
DX: Z01.812 Encounter for preprocedural laboratory examination (principal); E78.00 Pure hypercholesterolemia, unspecified
CPT/HCPCS: 36415; 80061; 80076; 83735

== ENCOUNTER 2021-07-22 06:27 | Outpatient (CLI) | payer MEDICARE, OTHER, SELFPAY ==
[2021-07-22 07:04] LABS: Absolute Lymphocyte Count 1.17 X10^3/uL (0.83-4.51); Absolute Neutrophil Count 7.2 X10^3/uL (2.0-7.7); Basophil# 0.08 X10^3/uL; Basophil% 0.9 % (0-1); Eosinophils% 1.1 % (0-5); Hematocrit 42.8 % (37-47); Hemoglobin 13.7 g/dL (12.0-15.0); Lymphocyte # 1.17 X10^3/ul (0.83-4.51); Lymphocyte % 12.7 % (19-41); Mean Corpuscular Hgb 28.4 pg (27.0-32.0); Mean Corpuscular Volume 88.6 fL (81-99); Mean Platelet Vol. 10.4 fl (6.2-12.0); Monocyte# 0.61 X10^3/uL; Monocyte% 6.6 % (0-10); NRBC Flagged by Analyzer 0 % (0-5); Neutrophil # 7.19 X10^3/uL (2.7-7.7); Neutrophil % 78.3 % (47-70); Platelet Count 384 K/mm3 (150-450); RBC Distribution Width CV 12.3 % (11.6-14.6); RBC Distribution Width SD 40.3 fl (35.1-43.9); Red Blood Count 4.83 M/mm3 (4.2-5.4); White Blood Count 9.2 K/mm3 (4.4-11.0)
[2021-07-22 07:38] LABS: ALB/GLOB Ratio 0.9 RATIO (0.9-2.4); AST(SGOT) 17 U/L (15-37); Alanine Aminotransfer ALT/SGPT 35 U/L (13-56); Albumin, Serum 3.4 g/dL (3.2-5.0); Alkaline Phosphatase 82 U/L (45-117); Anion Gap 2 (5-15); BUN 19 mg/dL (7-18); Calcium,Total 9.4 mg/dL (8.5-10.1); Chloride 104 mmol/L (98-107); Creatinine, Serum 0.86 mg/dL (0.55-1.02); EST Glomerular Filtration Rate 68 mL/min (>60); Est Glom Filt Rate - Afr Amer 82 mL/min (>60); Globulin 3.9 g/dL (2.2-4.2); Glucose 120 mg/dL (74-106); Potassium 4.5 mmol/L (3.5-5.1); Protein, Total 7.3 g/dL (6.4-8.2); Sodium Level 138 mmol/L (136-145)
[2021-07-25 09:52] LABS: MG Sendout 2.1 mg/dL (1.6-2.3)
== END 2021-07-22 23:59 | disposition home or self-care (01) ==
LOC: LAB 06:29
PROVIDERS: Anesthesiology; PCP Internal Medicine; Referring Provider Internal Medicine Rheumatology; Visit Provider Internal Medicine Rheumatology
DX: M06.4 Inflammatory polyarthropathy (principal); M18.0 Bilateral primary osteoarthritis of first carpometacarpal joints; Q66.70 Congenital pes cavus, unspecified foot; I10 Essential (primary) hypertension; E78.5 Hyperlipidemia, unspecified; Z87.442 Personal history of urinary calculi
CPT/HCPCS: 36415; 80053; 83735; 85025; 85610; 85730; 86850; 86900; 86901

== ENCOUNTER 2021-07-30 10:29 | Observation (INO) | payer MEDICARE, OTHER, SELFPAY ==
--- NOTE | 2021-06-17 08:57 | EKG12_ITS ---
Test Reason : PRE OP Blood Pressure : / mmHG Vent. Rate : 073 BPM Atrial Rate : 073 BPM P-R Int : 110 ms QRS Dur : 076 ms QT Int : 360 ms P-R-T Axes : 030 008 042 degrees QTc Int : 396 ms Sinus rhythm with short MT Septal infarct , age undetermined Abnormal ECG Confirmed by RUPERTO BINGHAM, ADALI ([id number]), writer editor RUIZ RUSSELL ([id number]) on 06/18/2021 10:48:59 AM Referred By: Sathish Chan Confirmed By:ADALI HICKEY MD
[2021-07-22 09:38] LABS: Partial Thromboplast Time 27.6 Seconds (24.1-36.2); Prothrombin Time (Protime)PT. 12.9 SECONDS (11.7-14.9)
[2021-07-30] VITALS (9 sets, daily range): BP systolic 96–141; BP diastolic 45–67; PULSE 67–83; RESP 13–18; TEMP 36.3–37.6; O2SAT 88–100; BMI 21.3
[2021-07-30 05:56] LABS: Bedside Glucose 120 mg/dL (70-110)
[2021-07-30] MEDS: Lactated Ringers 1,000 ML 40 ML IV ×2 (06:09→15:37)
[2021-07-30] MEDS: Celecoxib 200 MG Capsule 400 MG PO (06:15)
[2021-07-30] MEDS: Gabapentin 600 MG Tablet PO (06:15)
[2021-07-30] MEDS: Phenazopyridine 95 MG Tablet 190 MG PO (06:15)
[2021-07-30] MEDS: Acetaminophen 500 MG Tablet 1000 MG PO ×3 (06:15→17:20)
[2021-07-30] MEDS: dexAMETHasone 10 MG/ML Vial 8 MG IV (06:18)
--- NOTE | 2021-07-30 07:09 | PCM.HP.BLA ---
History and Physical Date of Admission: 07/30/21 Surgical History and Physical Dian Domínguez, a 80 year old female 2 0 0 0 2, presents for Vaginal Hysterectomy and AP Repair on July 30, 2021 at 0730. -- Simple EM Hyperplasia; Uterovaginal Prolapse -- Uterine Prolapse which began September 2020. Dian claims it started gradually and has been present worsening slowly. It occurs intermittantly. It is located in the vagina. Dian characterizes it to be non-radiating. Dian characterizes the quality pressure. Severity is moderate and very concerned; Additional comments are: Ready to have surgery for Repair. MEDICATIONS HISTORY: Patient is also takin. atenolol 50 mg tablet, 1 PO QD 2. pravastatin 80 mg tablet, One tablet by mouth once daily 3. lisinopril 10 mg tablet, One pill by mouth once a day 4. hydroxychloroquine 200 mg tablet, One pill by mouth once a day ALLERGIES: Penicillins, Rash, Clindamycin, Intolerance-diarrhea, Lipitor, Muscle weakness, Ibuprofen, Generalized rash, Bee Pollen and Facial swelling Illnesses - hypertension, high cholesterol Accidents - None Hospitalizations - see surgery Review of Systems: GENERAL - Denies fever, or chills SKIN - Denies skin changes EYES - Denies visual changes EARS - Denies difficulty hearing NOSE - Denies nasal congestion or bleeding MOUTH - Denies sore throat or difficulty swallowing NECK - Denies pain or swelling RESPIRATORY - Denies shortness of breath or wheezing CARDIOVASCULAR - Denies palpitations or chest pain GASTROINTESTINAL - Denies nausea, vomiting, diarrhea, constipation GENITOURINARY - Denies dysuria, frequency of urination, incontinence of urine MUSCULOSKELETAL - Denies joint or muscle pain NEUROLOGICAL - Denies localized numbness or weakness PSYCHIATRIC - Denies depression or anxiety ENDOCRINE - Denies heat or cold intolerance, weight loss or gain HEMATO-IMMUNOLOGIC - Denies excesive bleeding with cuts SOCIAL HISTORY: Alcohol Use - denies use Smoking - Never Diet - no special diet Lifestyle - moderate stress lifestyle and Exercise - active Seat Belt Use - always Employer - Retired Illicit Drug Use - denies use of street drugs Sexual Activity - Spouse-Sig Other Name - Kenny Spouse-Sig Other Occupation - () Children Name(s) - 2 children Control - postmenopausal FAMILY HISTORY: MENSTRUAL HISTORY: LMP Known?- Postmenopausal PAST PREGNANCIES: Total Pregnancies - 2; Full Term Pregnancies - 2; Premature - 0; Abortions, Induced - 0; Abortions, Spontaneous - 0; Ectopics - 0; Multiple Births - 0; Living Children - 2 SURGICAL HISTORY: 1. 11/02/2017 cystoscopy 2. 06/23/2018 Kidney Stone Removal ; Dr. Schulte 3. 01/02/2018 Dx hysteroscopy, fractional D and C, Dx laparoscopy, BSO ; Sathish Chan M.D. PHYSICAL EXAM BP- 142/78 Sitting, Right arm, regular cuff Weight- 116.72870 lbs Height- 62 inch BMI:21.2 CONSTITUTIONAL - NAD, well nourished, and well developed SKIN - No rash, lesions, or ulcers HEENT - Normocephalic, PERRLA, EOMI LYMPH NODES - n0 lymphadenopathy LUNGS - normal respiratory rate and rhythm EXTREMITIES - No edema or calf tenderness NEUROLOGICAL - Cranial nerves II-XII grossly intact PSYCHIATRIC - A and O to time, place, person, mood and affect External Genitial Vagina - non-tender without lesions Urethra/Urethral Meatus - non-tender Bladder - non-tender Vagina - cystocele to introitus, open perineum with rectocele to within 1 cm of introitus; cervix protrudes to with 1 cm of introitus and loss of rugae Cervix - without cervical motion tenderness and has normal size and features without evident lesions Uterus - 5-6 cm in size, mobile and nontender Adnexa - clear without massess or tenderness ASSESSMENT/PLAN: 1. Cystocele Midline, Rectocele and Uterovaginal Prolapse Incomplete Very symptomatic and desires repair. Plan to proceed with Vag Hyst and AP Repair. Discussed RBAs and all questions answered. Rx given for estrogen cream.
--- NOTE | 2021-07-30 07:30 | HYST_PTH ---
PATIENT: PHANI PIERRE LOC: [facility] U#:[id number] AGE/SX: 80/F ROOM: [facility] RE07/30/[address]: Dr. Sathish Chan MD : [id number] BED: 1 DIS: 07/31/2021 SPEC #: [id number] RECD: 07/30/21 10:11 STATUS: VAIBHAV OBANDO #: [id number] LOBO: 07/30/21 07:[address]: Sathish Chan DEPT: SURGICAL PATHOLOGY RECD BY: Nanda Bojorquez ENTERED: 07/30/21 13:05 SP TYPE: HYSTERECT OTHR DR: Dr. Cristal Astudillo MD Tissues: Uterus, NOS Procedures: Surgery Specimen Level V HEADER OPERATION: ERAS, vaginal hysterectomy, anterior and posterior repair PRE-OP DIAGNOSIS: Cystocele midline, rectocele and uterovaginal prolapse TISSUE SUBMITTED: Cervical and uterus, vagina mucosa MICROSCOPIC DIAGNOSIS Cervical and uterus, vagina mucosa, vaginal hysterectomy and anterior and posterior repair: Cervix ? mild chronic cystic cervicitis. Endometrium ? focal simple cystic hyperplasia without atypia. Myometrium ? intramural and subserosal leiomyomas (largest measuring 2.5 cm in greatest dimension). Vaginal mucosal tissue ? squamous mucosa with mild chronic inflammation. See comment. SJ:rg 07/31/2021 COMMENT The largest leiomyoma shows focal area of calcifications. MICROSCOPIC DESCRIPTION Slides are reviewed. GROSS DESCRIPTION Received in fixative is one container labeled with the patient's name and designated cervix and uterus and vaginal mucosa. The specimen consists of a hysterectomy specimen consisting of uterus with cervix and detached pieces of mucosal tissue. The uterus with cervix weighs 44 gm and measures 8 x 5 x 3 cm. The body of the uterus is distorted. The serosal surface is barrett, glistening. The ectocervical mucosa is unremarkable. The external os is circular in contour. The endocervical canal is elongated and measures 3 cm in length. The endocervical mucosa is barrett, glistening and unremarkable. The endocervical canal is filled with mucoid material. The triangular endometrial cavity measures 3.5 cm in length and up to 2 cm in width. The endometrium is barrett, glistening without any mass lesion and measures <0.1 cm in thickness. Sections of the uterine wall reveal multiple intramural and subserosal nodular masses. Sections of these masses reveal barrett whorled cut surfaces without areas of hemorrhage, necrosis or cystic degeneration. The largest nodular mass measures up to 2.5 cm in greatest dimension. Sections of the largest nodular mass also reveal focally calcified cut surfaces. The uninvolved uterine wall measures up to 1.5 cm in thickness. Also present in the container are detached pieces of mucosal tissue measuring in aggregate 5 x 4.5 x 0.5 cm. No mucosal lesion is identified. A few instrumentation markham are noted. Product Grader sections are submitted in nine cassettes as follows: 1 - anterior cervix, 2 - posterior cervix, 3 & 4 - anterior uterine wall, 5 & 6 - posterior uterine wall, 7 - smaller nodular masses, 8 - largest subserosal nodular mass after decalcification, 9??mucosal tissue. / SJ:michelle 07/30/2021 TC:5 CPT: 82796 , 51193
--- NOTE | 2021-07-30 07:45 | PCM.OPRPT ---
Report of Operation Date of Procedure: 07/30/21 Pre-Operative Diagnosis: Incomplete Uterovaginal Prolapse, Cystocele, Rectocele Post-Operative Diagnosis: Incomplete Uterovaginal Prolapse, Cystocele, Rectocele Surgery/Procedure Performed:: Vaginal Hysterectomy and Anterior Posterior Repair Description of Surgical Findings:: 6 cm uterus with cystocele and rectocele that protrudes to within 1 cm of the introitus Surgeon: Sathish Chan energy conservation specialist: Julio Pichardo Type of Anesthesia: General (LMA) Anesthesiologist: Khari Ruiz Specimen's removed: Uterus and vaginal mucosa Drains: Reis to straight drain Estimated Blood Loss (mL): 100 cc Fluids Replaced: Crystalloid Description of Procedure: Surgeon: Sathish Cahn MD, FACOG Indications: This is a tbfnsth-zzzxm-xpln-old who is been having problems with vaginal pressure and prolapse symptoms. Conservative measures have not been helpful. Given this the patient desires that we proceed the above procedure. She has been counseled regarding the risk and indications of this procedure including the possibility of bleeding, infection, and injury to surrounding structures such as bowel bladder. All questions were answered. Procedure: Patient was taken to the operating room where after induction of general anesthesia she was placed in the dorsal lithotomy position and prepped and draped in the usual sterile fashion. A Reis catheter was placed. Anterior cervix was grasped with a tenaculum and anterior cervix circumscribed with cautery on a setting of 35 W coagulation. Anterior vaginal mucosa was undermined and anterior peritoneum was easily entered. The posterior aspect of the cervix was circumscribed with a knife and posterior peritoneum easily entered. Progressive bites were taken on either side of the uterine cervix and each pedicle ligated with 0 Vicryl suture. Superior pedicles were ligated ?2 with 0 Vicryl suture and sidewall pedicles were examined and oversewn where necessary with hkbquz-[id number] 0 Vicryl suture to achieve hemostasis. Posterior vaginal cuff was oversewn with running locked 0 Vicryl suture. Hemostasis was noted and peritoneum was closed in a pursestring fashion incorporating superior pedicles into the stitch. Vaginal cuff was then closed front to back with interrupted [id number]-yc-djcfj 0 Vicryl suture. Hemostasis was noted. Attention was turned toward the anterior repair portion of the procedure. Anterior vaginal mucosa was undermined and divided and then imbricated toward the midline with interrupted 0 Vicryl sutures. Vaginal mucosa was trimmed and then closed with interrupted 2-0 chromic suture. Vaginal cuff was then closed front to back with interrupted prrcpl-nm-wospw 0 Vicryl suture. Hemostasis was noted. Attention was turned toward the posterior repair portion of the procedure. Remnants of the hymenal ring were grasped with Allises and a V-shaped incision was made in the perineum. Rectovaginal mucosa was then undermined divided and then imbricated toward the midline with interrupted 0 Vicryl suture. Vaginal mucosa was trimmed and then closed with running locked 2-0 chromic suture. Remnants of the bulbocavernosus muscles were identified and brought toward the midline with a single gtkgvl-av-aigef 0 Vicryl suture and perineum was closed in the usual fashion with running and subcuticular, and nzqicb-nl-pzzek 2-0 chromic suture. Hemostasis was noted. Reis catheter was again opened and clear yellow urine was noted. Vagina was packed with iodoform tape. Patient tolerated the procedure well was taken to recovery room in satisfactory condition; sponge instrument and needle counts were all reportedly correct. Estimated blood loss for the case was 100 cc. Ancef 2 g IV was given prior to beginning the operative procedure. There were no apparent complications of the surgery. Specimen to pathology was uterus and vaginal mucosa. Grafts/Implants Used: None Complications None Admit VTE Documentation VTE Present on Admission: Yes VTE Mechan Device Prophylaxis: SCD's VTE Pharm Prophylaxis ordered?: Yes
[2021-07-30] MEDS: Cefazolin 2 GM in 0.9% Normal Saline 100 ML IV (07:49)
[2021-07-30] MEDS: Hydroxychloroquine 200 MG Tablet PO (13:47)
[2021-07-30] MEDS: Ketorolac 15 MG/ML Vial IV ×2 (15:37→21:47)
[2021-07-30] MEDS: 0.9% Saline Lock 10 ML Syringe IV ×2 (15:38→21:47)
[2021-07-30] MEDS: Docusate Sodium 100 MG Capsule PO (21:48)
[2021-07-30] MEDS: Atenolol 50 MG Tablet PO (21:48)
[2021-07-30] MEDS: Pravastatin 80 MG Tablet PO (21:48)
[2021-07-30] MEDS: Lisinopril 10 MG Tablet PO (21:48)
[2021-07-31] MEDS: Acetaminophen 500 MG Tablet 1000 MG PO ×2 (00:11→06:32)
[2021-07-31] MEDS: Ketorolac 15 MG/ML Vial IV ×2 (04:33→10:01)
[2021-07-31] MEDS: 0.9% Saline Lock 10 ML Syringe IV (04:34)
[2021-07-31 06:08] LABS: Hematocrit 31.6 % (37-47); Hemoglobin 10.5 g/dL (12.0-15.0); Mean Corp Hgb Conc 33.2 g/dL (32-36); Mean Corpuscular Hgb 29.1 pg (27.0-32.0); Mean Corpuscular Volume 87.5 fL (81-99); Mean Platelet Vol. 10.4 fl (6.2-12.0); Platelet Count 262 K/mm3 (150-450); RBC Distribution Width CV 12.2 % (11.6-14.6); RBC Distribution Width SD 39.5 fl (35.1-43.9); Red Blood Count 3.61 M/mm3 (4.2-5.4); White Blood Count 21.9 K/mm3 (4.4-11.0)
[2021-07-31 07:34] VITALS: BP 112/53; PULSE 64; RESP 16; TEMP 36.6; O2SAT 97
[2021-07-31] MEDS: Aspirin E.C. 81 MG Tablet PO (07:50)
--- NOTE | 2021-07-31 08:32 | PCM.PN.OB ---
Subjective Subjective Patient without complaints. Denies any pain. Minimal to no vaginal bleeding.Wants to go home today. Objective Data Objective Data Vital Signs: Vital Signs Temp Pulse Resp BP Pulse Ox 97.9 F 64 16 112/53 L 97 07/31/21 07:34 07/31/21 07:34 07/31/21 07:34 07/31/21 07:34 07/31/21 07:34 Oxygen Flow Rate (L/min) 4 Oxygen Delivery Method Room Air Weight: 116 lb 13.52 oz Body Mass Index (BMI) 21.3 Intake & Output: Intake and Output for Last 24 Hours 07/29/21 07/30/21 07/31/21 23:59 23:59 23:59 Intake Total 1924.67 / 2724.67 800 / 800 Output Total 675 / 2075 2250 / 2250 Balance 1249.67 / 649.67 -1450 / -1450 Lab / Micro Data Result Diagrams: 07/31/21 05:50 Labs: Laboratory Results - last 24 hr 07/31/21 05:50: WBC 21.9 H, RBC 3.61 L, Hgb 10.5 L, Hct 31.6 L, MCV 87.5, MCH 29.1, MCHC 33.2, RDW Std Deviation 39.5, RDW Coeff of Daphne 12.2, Plt Count 262, MPV 10.4 Assessment & Plan (1) Uterovaginal prolapse, incomplete: PLAN: Doing well postoperative day #1 status post vaginal hysterectomy and anterior posterior repair. Vaginal pack removed with minimal bleeding noted. White count noted and likely due to preoperative steroids the patient received as there is no evidence of infection.Will discharge to home with routine instructions when patient is able to void on own.
--- NOTE | 2021-07-31 08:34 | DCINST_ITS ---
Discharge Instructions Diet Discharge Diet: No restrictions Activity Discharge Activity: May Shower and May Take a Tub Bath May resume sexual activity in: 6 weeks (nothing in the vagina.) Lifting Restrictions: 25 pounds for 6 weeks. Additional Activity Instructions:: Nothing in the vagina for 6 weeks please; no lifting more than 20-25 lbs for 6 weeks. Use Ibuprophen 800 mg orally every 8 hours as needed for pain. Can also add Tylenol 1000 mg every 8 hours if needed for pain. Drink lots of water. Call if bleeding more than a pad per hour. Use the colace as constipation is a big issue after this type of surgery. Steps and walking are OK. Activity is encouraged but do not over do it !! Dressing / Incision Call your doctor if your incision/area has: Continuous Slow Oozing, Sudden Increased Bleeding, Increased Pain/ Swelling, Increased Redness and Foul Smelling Discharge Call your doctor if you observe: Fever of 101 or Higher, Inability to urinate, Inability to have a bowel movement, Using more than 1 pad per hour and - (Some vaginal bleeding may be noted for up to 4-8 weeks.) Cleanse incision/area with: - (Let the soapy water run over your incision, rinse and pat dry.) Follow Up Care Please Follow Up With: Sathish Chan MD When: Call [phone] for an appointment to be seen in 1-2 weeks. Test Results: Test results from this visit will be discussed in further detail a t your follow-up appointment, if applicable. Discharge Plan Admission Admit Date/Time: 07/30/21 10:29 Primary Reason for Your Visit: Vaginal Hysterectomy and Anterior Posterior Repair Attending Provider: Sathish Chan Primary Care Provider: Cristal Astudillo Discharge Orders/Prescriptions Prescriptions: New docusate sodium 100 mg tablet 100 mg PO BID PRN (Reason: constipation) Qty: 60 RF: 1 Continued hydroxychloroquine 200 mg tablet 200 mg PO DAILY RF: 0 cholecalciferol (vitamin D3) 50 mcg (2,000 unit) tablet 50 mcg PO BID RF: 0 pravastatin 80 mg tablet 80 mg PO DAILY Qty: 90 RF: 3 lisinopril 10 mg tablet 10 mg PO QHS Qty: 90 RF: 3 aspirin 81 MG tablet 81 mg PO DAILY@0800 RF: 0 atenolol 50 mg tablet 50 mg PO QHS Qty: 90 RF: 5 Referrals / Follow Up: Cristal Astudillo MD [Primary Care Provider] - Disposition Disposition (needs filled in before D/C Order can be placed): Home, Self Care
[2021-07-31] MEDS: Hydroxychloroquine 200 MG Tablet PO (10:01)
[2021-07-31] MEDS: Docusate Sodium 100 MG Capsule PO (10:01)
== END 2021-07-31 12:45 | disposition home or self-care (01) ==
LOC: SDC 10:43 → MS3 10:43
PROVIDERS: Admitting Provider Obstetrics & Gynecology; PCP Internal Medicine; Referring Provider Obstetrics & Gynecology; Visit Provider Obstetrics & Gynecology
PROC: (CPT 58260; principal; 2021-07-30 07:10)
DX: N81.4 Uterovaginal prolapse, unspecified (principal); M06.4 Inflammatory polyarthropathy; E78.5 Hyperlipidemia, unspecified; I10 Essential (primary) hypertension; E55.9 Vitamin D deficiency, unspecified; N85.01 Benign endometrial hyperplasia; D25.1 Intramural leiomyoma of uterus; D25.2 Subserosal leiomyoma of uterus; Z79.899 Other long term (current) drug therapy; Z79.82 Long term (current) use of aspirin; R94.31 Abnormal electrocardiogram [ECG] [EKG]; Z87.19 Personal history of other diseases of the digestive system; I49.1 Atrial premature depolarization; M18.0 Bilateral primary osteoarthritis of first carpometacarpal joints; Q66.70 Congenital pes cavus, unspecified foot; Z87.442 Personal history of urinary calculi; Z78.0 Asymptomatic menopausal state
CPT/HCPCS: 58270; 00944; 36415; 80053; 82962; 83735; 85025; 85027; 85610; 85730; 86850; 86900; 86901; 88307; 93005; 96374; 96376; 99218; 99251; J7120; A4216; G0378; G0463; J2405; J3475

== ENCOUNTER 2021-08-27 09:33 | Outpatient (CLI) | payer MEDICARE, OTHER, SELFPAY ==
[2021-08-27 09:35] LABS: Bacteria 0 SEEN /hpf (None Seen); Mucous, Urine 0 SEEN /hpf (<or=2+)
[2021-08-27 12:08] LABS: Absolute Lymphocyte Count 0.94 X10^3/uL (0.83-4.51); Absolute Neutrophil Count 9.8 X10^3/uL (2.0-7.7); Basophil# 0.09 X10^3/uL; Basophil% 0.8 % (0-1); Eosinophil# 0.08 X10^3/uL; Eosinophils% 0.7 % (0-5); Hematocrit 40.6 % (37-47); Lymphocyte # 0.94 X10^3/ul (0.83-4.51); Mean Corpuscular Hgb 29.5 pg (27.0-32.0); Mean Corpuscular Volume 92.3 fL (81-99); Mean Platelet Vol. 11.2 fl (6.2-12.0); Monocyte# 0.72 X10^3/uL; Monocyte% 6.2 % (0-10); NRBC Flagged by Analyzer 0 % (0-5); Neutrophil # 9.77 X10^3/uL (2.7-7.7); Neutrophil % 83.4 % (47-70); Platelet Count 362 K/mm3 (150-450); RBC Distribution Width CV 12.5 % (11.6-14.6); RBC Distribution Width SD 42.3 fl (35.1-43.9); White Blood Count 11.7 K/mm3 (4.4-11.0)
[2021-08-27 12:15] LABS: Color, Urine Yellow (Yellow); Glucose, Dipstick Normal (Normal); Ketone-Dipstick Negative (Negative); Leukocyte Esterase-Dipstick 500 /ul (Negative); Nitrite-Dipstick Negative (Negative); Occult Blood-Urine 150 /ul (Negative); Protein-Dipstick 15 mg/dl (Negative); Urine Bilirubin Dipstick Negative (Negative); Urine Clarity Sl. Cloudy (Clear); Urine Urobilinogen Normal (Normal)
[2021-08-27 12:22] LABS: Red Blood Cells-Urine 10-25 SEEN /hpf (0-5); Squamous Epithelial Cells - UA 0-5 SEEN /hpf (5-10); White Blood Cells 25-50 SEEN /hpf (0-5)
[2021-08-27 12:38] LABS: Hemoglobin A1c 5.8 % (3.8-5.6)
[2021-08-27 12:39] LABS: Anion Gap 4 (5-15); BUN 18 mg/dL (7-18); BUN/Creat Ratio 22.8 RATIO (10-20); Calcium,Total 9.5 mg/dL (8.5-10.1); Chloride 104 mmol/L (98-107); Creatinine, Serum 0.79 mg/dL (0.55-1.02); EST Glomerular Filtration Rate 75 mL/min (>60); Est Glom Filt Rate - Afr Amer 90 mL/min (>60); Glucose 109 mg/dL (74-106); Potassium 4.5 mmol/L (3.5-5.1); Sodium Level 138 mmol/L (136-145)
== END 2021-08-27 23:59 | disposition home or self-care (01) ==
LOC: BIMLAB 09:34
PROVIDERS: PCP Internal Medicine; Referring Provider Internal Medicine; Visit Provider Internal Medicine
DX: N20.0 Calculus of kidney (principal); K57.30 Diverticulosis of large intestine without perforation or abscess without bleeding; R73.9 Hyperglycemia, unspecified
CPT/HCPCS: 36415; 80048; 81001; 83036; 85025

== ENCOUNTER 2021-09-01 12:01 | Outpatient (CLI) | payer MEDICARE, OTHER, SELFPAY ==
--- NOTE | 2021-09-01 12:03 | US_ITS ---
STUDY: COMPLETE RENAL AND BLADDER ULTRASOUND EXAMINATION OF 1216 HOURS ON 09/01/2021. REASON FOR EXAM: 80-year-old female with flank pain and hematuria. TECHNIQUE: Ultrasound evaluation of the kidneys was performed with real-time and static barfield-scale imaging. COMPARISON: None. FINDINGS: RIGHT KIDNEY: Normal location of the right kidney, which is normal in size. The right kidney measures 10.3 cm length by 5.3 cm AP diameter by 4.1 cm in transverse diameter. There is a normal cortex of the right kidney. The renal cortex measures 1.2 cm. There is no right renal mass. There are no right renal calculi. There are parapelvic cysts. These parapelvic cysts measure 1.1 cm, 1 cm, and 4.1 cm in diameter. In addition, there is a suggestion of a minimal right hydronephrosis. DISTAL RIGHT URETER: A distal right ureteral urine jet is noted; there is no evidence of right ureteral obstruction. LEFT KIDNEY: Normal location of the left kidney, which is normal in size. The left kidney measures 11.4; 5 5.3 cm in AP diameter by 4.7 cm in transverse diameter. There is a normal cortex of the left kidney. The renal cortex measures 1.1 cm. There is no left renal mass. There are no left renal calculi. There are left-sided parapelvic cyst measuring 1.2 cm, 1.2 cm, and 1.2 cm in diameter. There is a mild left hydronephrosis. DISTAL LEFT URETER: A distal left ureteral urine jet is noted; there is no evidence of ureteral obstruction. BLADDER: The distended urinary bladder has a volume of 594 ml. There is a normal wall thickness of the distended urinary bladder. There is no demonstrated mass within the urinary bladder. There are no demonstrated bladder calculi. US/Kidney and Bladder IMPRESSION: 1. Both kidneys are of normal size and configuration. 2. No evidence of renal solid mass lesions. 3. There are 3 parapelvic cysts in each kidney with the largest measuring 4.0 cm in diameter. 4. Minimal right hydronephrosis and mild left hydronephrosis. But, there is no evidence of an obstructive uropathy since bilateral ureteral urine jets are noted. 5. No renal calcifications or calculi. 6. No distinct evidence of ureteral dilatation. 7. Normal bladder. Electronically Signed: Missael Brothers MD at 18:16 EDT ,
== END 2021-09-01 23:59 | disposition home or self-care (01) ==
LOC: US 12:02
PROVIDERS: PCP Internal Medicine; Referring Provider Internal Medicine; Visit Provider Internal Medicine
DX: R10.9 Unspecified abdominal pain (principal); R31.9 Hematuria, unspecified
CPT/HCPCS: 76770

== ENCOUNTER 2021-09-11 09:45 | Outpatient (CLI) | payer MEDICARE, OTHER, SELFPAY ==
[2021-09-11 09:49] LABS: Mucous, Urine 0 SEEN /hpf (<or=2+)
[2021-09-11 12:09] LABS: Color, Urine Yellow (Yellow); Glucose, Dipstick Normal (Normal); Ketone-Dipstick Negative (Negative); Leukocyte Esterase-Dipstick 500 /ul (Negative); Nitrite-Dipstick Negative (Negative); Occult Blood-Urine 25 /ul (Negative); Protein-Dipstick 15 mg/dl (Negative); Urine Bilirubin Dipstick Negative (Negative); Urine Clarity Clear (Clear); Urine Urobilinogen Normal (Normal)
[2021-09-11 12:30] LABS: Bacteria 1+ /hpf (None Seen); Red Blood Cells-Urine 0-5 SEEN /hpf (0-5); Squamous Epithelial Cells - UA 0-5 SEEN /hpf (5-10); White Blood Cells 25-50 SEEN /hpf (0-5)
== END 2021-09-11 23:59 | disposition home or self-care (01) ==
LOC: LABSPEC 09:48
PROVIDERS: PCP Internal Medicine; Referring Provider Physician Assistant; Visit Provider Physician Assistant
DX: R31.9 Hematuria, unspecified (principal); R10.9 Unspecified abdominal pain
CPT/HCPCS: 81001; 87086; 87088

== ENCOUNTER → 2022-01-13 | Outpatient (CLI) | payer MEDICARE, OTHER, SELFPAY ==
[2022-01-13 07:19] LABS: Absolute Lymphocyte Count 1.13 X10^3/uL (0.83-4.51); Absolute Neutrophil Count 9.2 X10^3/uL (2.0-7.7); Basophil% 0.9 % (0-1); Eosinophil# 0.13 X10^3/uL; Eosinophils% 1.1 % (0-5); Lymphocyte # 1.13 X10^3/ul (0.83-4.51); Lymphocyte % 9.9 % (19-41); Mean Corp Hgb Conc 32.5 g/dL (32-36); Mean Corpuscular Hgb 28.9 pg (27.0-32.0); Mean Corpuscular Volume 88.9 fL (81-99); Mean Platelet Vol. 10.6 fl (6.2-12.0); Monocyte# 0.81 X10^3/uL; Monocyte% 7.1 % (0-10); NRBC Flagged by Analyzer 0 % (0-5); Neutrophil # 9.17 X10^3/uL (2.7-7.7); Neutrophil % 80.6 % (47-70); Platelet Count 353 K/mm3 (150-450); RBC Distribution Width CV 12.4 % (11.6-14.6); RBC Distribution Width SD 40.6 fl (35.1-43.9); White Blood Count 11.4 K/mm3 (4.4-11.0)
[2022-01-13 08:02] LABS: ALB/GLOB Ratio 0.9 RATIO (0.9-2.4); AST(SGOT) 20 U/L (15-37); Alanine Aminotransfer ALT/SGPT 27 U/L (13-56); Albumin, Serum 3.3 g/dL (3.2-5.0); Alkaline Phosphatase 72 U/L (45-117); Anion Gap 4 (5-15); BUN 23 mg/dL (7-18); BUN/Creat Ratio 25.1 RATIO (10-20); Bilirubin, Direct 0.17 mg/dL (0.00-0.30); Calcium,Total 8.7 mg/dL (8.5-10.1); Chloride 105 mmol/L (98-107); Cholesterol 152 mg/dL (200); Creatinine, Serum 0.92 mg/dL (0.55-1.02); EST Glomerular Filtration Rate 63 mL/min (>60); Est Glom Filt Rate - Afr Amer 76 mL/min (>60); Globulin 3.6 g/dL (2.2-4.2); Glucose 126 mg/dL (74-106); High Density Lipoprotein 48 mg/dL; Potassium 3.9 mmol/L (3.5-5.1); Protein, Total 6.9 g/dL (6.4-8.2); Sodium Level 138 mmol/L (136-145); Triglycerides 98 mg/dL; Very Low Density Lipoprotein 20 mg/dL (5-40)
== END | disposition home or self-care (01) ==
LOC: LAB 06:14
PROVIDERS: PCP Internal Medicine; Referring Provider Internal Medicine Cardiovascular Disease; Visit Provider Internal Medicine Cardiovascular Disease
DX: M06.4 Inflammatory polyarthropathy (principal); M18.0 Bilateral primary osteoarthritis of first carpometacarpal joints; I10 Essential (primary) hypertension; Q66.70 Congenital pes cavus, unspecified foot; E78.5 Hyperlipidemia, unspecified; Z87.442 Personal history of urinary calculi
CPT/HCPCS: 36415; 80053; 80061; 82248; 85025

== ENCOUNTER → 2022-05-24 | Outpatient (CLI) | payer MEDICARE, OTHER, SELFPAY ==
[2022-05-24 13:57] LABS: Mucous, Urine 0 SEEN /hpf (<or=2+); Squamous Epithelial Cells - UA 0 SEEN /hpf (5-10)
[2022-05-24 16:09] LABS: Color, Urine Yellow (Yellow); Glucose, Dipstick Normal (Normal); Ketone-Dipstick Negative (Negative); Leukocyte Esterase-Dipstick 25 /ul (Negative); Nitrite-Dipstick Negative (Negative); Occult Blood-Urine Negative /ul (Negative); Protein-Dipstick Negative (Negative); Urine Bilirubin Dipstick Negative (Negative); Urine Clarity Clear (Clear); Urine Urobilinogen Normal (Normal)
[2022-05-24 16:23] LABS: Bacteria RARE /hpf (None Seen); Red Blood Cells-Urine 0-5 SEEN /hpf (0-5); White Blood Cells 0-5 SEEN /hpf (0-5)
== END | disposition home or self-care (01) ==
LOC: LAB 13:52
PROVIDERS: PCP Internal Medicine; Referring Provider Internal Medicine; Visit Provider Internal Medicine
DX: R30.0 Dysuria (principal)
CPT/HCPCS: 81001; 87086; 87088

== ENCOUNTER → 2022-07-14 | Outpatient (CLI) | payer MEDICARE, OTHER, SELFPAY ==
[2022-07-14 06:36] LABS: Absolute Neutrophil Count 7.5 X10^3/uL (2.0-7.7); Basophil# 0.07 X10^3/uL; Basophil% 0.7 % (0-1); Eosinophil# 0.09 X10^3/uL; Hematocrit 42.3 % (37-47); Hemoglobin 13.4 g/dL (12.0-15.0); Lymphocyte % 12.7 % (19-41); Mean Corp Hgb Conc 31.7 g/dL (32-36); Mean Corpuscular Hgb 28.5 pg (27.0-32.0); Monocyte# 0.58 X10^3/uL; Monocyte% 6.2 % (0-10); NRBC Flagged by Analyzer 0 % (0-5); Neutrophil # 7.45 X10^3/uL (2.7-7.7); Platelet Count 379 K/mm3 (150-450); RBC Distribution Width SD 39.5 fl (35.1-43.9); White Blood Count 9.4 K/mm3 (4.4-11.0)
[2022-07-14 07:05] LABS: ALB/GLOB Ratio 0.9 RATIO (0.9-2.4); AST(SGOT) 20 U/L (15-37); Alanine Aminotransfer ALT/SGPT 29 U/L (13-56); Albumin, Serum 3.4 g/dL (3.2-5.0); Alkaline Phosphatase 80 U/L (45-117); Anion Gap 3 (5-15); BUN 18 mg/dL (7-18); BUN/Creat Ratio 19.2 RATIO (10-20); Calcium,Total 9.3 mg/dL (8.5-10.1); Chloride 106 mmol/L (98-107); Creatinine, Serum 0.94 mg/dL (0.55-1.02); EST Glomerular Filtration Rate 61 mL/min (>60); Est Glom Filt Rate - Afr Amer 74 mL/min (>60); Globulin 3.7 g/dL (2.2-4.2); Glucose 121 mg/dL (74-106); Potassium 4.3 mmol/L (3.5-5.1); Protein, Total 7.1 g/dL (6.4-8.2); Sodium Level 140 mmol/L (136-145)
[2022-07-14 07:06] LABS: AST(SGOT) 19 U/L (15-37); Alanine Aminotransfer ALT/SGPT 29 U/L (13-56); Albumin, Serum 3.4 g/dL (3.2-5.0); Alkaline Phosphatase 79 U/L (45-117); Bilirubin, Direct 0.17 mg/dL (0.00-0.30); Cholesterol 156 mg/dL (200); Globulin 3.6 g/dL (2.2-4.2); High Density Lipoprotein 55 mg/dL; Triglycerides 87 mg/dL; Very Low Density Lipoprotein 17 mg/dL (5-40)
[2022-07-14 08:13] LABS: Hemoglobin A1c 5.9 % (3.8-5.6)
== END | disposition home or self-care (01) ==
LOC: LAB 06:14
PROVIDERS: PCP Internal Medicine; Referring Provider Internal Medicine Cardiovascular Disease; Visit Provider Internal Medicine Cardiovascular Disease
DX: M06.4 Inflammatory polyarthropathy (principal); M18.0 Bilateral primary osteoarthritis of first carpometacarpal joints; Q66.70 Congenital pes cavus, unspecified foot; I10 Essential (primary) hypertension; E78.5 Hyperlipidemia, unspecified; Z87.442 Personal history of urinary calculi; R73.9 Hyperglycemia, unspecified
CPT/HCPCS: 36415; 80053; 80061; 80076; 83036; 85025

== ENCOUNTER → 2022-08-11 | Outpatient (CLI) | payer MEDICARE, OTHER, SELFPAY ==
--- NOTE | 2022-08-11 07:45 | BI_ITS ---
MAMMOGRAPHY - BILATERAL SCREENING REASON FOR EXAM: Female, 81 years old. Routine annual screening examination. PERTINENT HISTORY: Non-contributory. TECHNIQUE: Digital bilateral breast izabella (3D mammographic acquisition) in the CC and MLO projections. 2-D mediolateral oblique (MLO) and craniocaudad (CC) views of both breasts were obtained. CAD: Full Field Digital Mammography with Computer Added Detection was performed. COMPARISON: Comparison is made with prior study dated 12/20/2019 and 06/19/2018. FINDINGS: Breast Composition: There are scattered areas of fibroglandular density. There are no dominant masses or suspicious calcifications. Stable benign-appearing bilateral axillary lymph nodes. No other significant abnormalities are identified. There has been no significant change since the prior study. BI/SCRN MAMM (CAD)W/IZABELLA BILAT IMPRESSION: Stable bilateral screening mammogram. Yearly follow-up mammogram recommended. (A) ASSESSMENT CATEGORY: BIRADS Category 2: Benign. A letter regarding these results will be sent to the patient by the facility within 30 days. Approximately 10% of breast cancers are not detected by mammography. A normal mammogram should not delay biopsy of a clinically suspicious abnormality. [id number] Electronically Signed: Ced Wallace MD at 10:18 EST ,
== END | disposition home or self-care (01) ==
LOC: OPBI 07:44
PROVIDERS: PCP Internal Medicine; Visit Provider Internal Medicine
DX: Z12.31 Encounter for screening mammogram for malignant neoplasm of breast (principal)
CPT/HCPCS: 77063; 77067

== ENCOUNTER → 2022-11-22 | Outpatient (CLI) | payer MEDICARE, OTHER, SELFPAY ==
[2022-11-22 07:10] LABS: Absolute Lymphocyte Count 1.17 X10^3/uL (0.83-4.51); Absolute Neutrophil Count 6.6 X10^3/uL (2.0-7.7); Basophil# 0.08 X10^3/uL; Basophil% 0.9 % (0-1); Eosinophil# 0.44 X10^3/uL; Eosinophils% 4.7 % (0-5); Hematocrit 41.1 % (37-47); Hemoglobin 12.9 g/dL (12.0-15.0); Lymphocyte # 1.17 X10^3/ul (0.83-4.51); Lymphocyte % 12.6 % (19-41); Mean Corp Hgb Conc 31.4 g/dL (32-36); Mean Corpuscular Hgb 28.7 pg (27.0-32.0); Mean Corpuscular Volume 91.5 fL (81-99); Mean Platelet Vol. 10.5 fl (6.2-12.0); Monocyte% 9.7 % (0-10); NRBC Flagged by Analyzer 0 % (0-5); Neutrophil # 6.62 X10^3/uL (2.7-7.7); Neutrophil % 71.5 % (47-70); Platelet Count 342 K/mm3 (150-450); RBC Distribution Width CV 12.5 % (11.6-14.6); RBC Distribution Width SD 41.7 fl (35.1-43.9); Red Blood Count 4.49 M/mm3 (4.2-5.4); White Blood Count 9.3 K/mm3 (4.4-11.0)
[2022-11-22 07:38] LABS: ALB/GLOB Ratio 0.9 RATIO (0.9-2.4); AST(SGOT) 15 U/L (15-37); Alanine Aminotransfer ALT/SGPT 25 U/L (13-56); Albumin, Serum 3.2 g/dL (3.2-5.0); Alkaline Phosphatase 81 U/L (45-117); Anion Gap 3 (5-15); BUN 25 mg/dL (7-18); BUN/Creat Ratio 28.1 RATIO (10-20); Calcium,Total 8.8 mg/dL (8.5-10.1); Chloride 108 mmol/L (98-107); Creatinine, Serum 0.89 mg/dL (0.55-1.02); EST Glomerular Filtration Rate 65 mL/min (>60); Est Glom Filt Rate - Afr Amer 79 mL/min (>60); Globulin 3.6 g/dL (2.2-4.2); Glucose 106 mg/dL (74-106); Potassium 4.4 mmol/L (3.5-5.1); Protein, Total 6.8 g/dL (6.4-8.2); Sodium Level 139 mmol/L (136-145)
== END | disposition home or self-care (01) ==
PROVIDERS: PCP Internal Medicine; Referring Provider Internal Medicine Rheumatology; Visit Provider Internal Medicine Rheumatology
DX: M06.00 Rheumatoid arthritis without rheumatoid factor, unspecified site (principal); Z79.899 Other long term (current) drug therapy
CPT/HCPCS: 36415; 80053; 85025

== ENCOUNTER → 2023-01-11 | Outpatient (CLI) | payer MEDICARE, OTHER, SELFPAY ==
[2023-01-11 07:22] LABS: Absolute Lymphocyte Count 1.36 X10^3/uL (0.83-4.51); Absolute Neutrophil Count 6.2 X10^3/uL (2.0-7.7); Basophil# 0.07 X10^3/uL; Basophil% 0.8 % (0-1); Eosinophil# 0.19 X10^3/uL; Eosinophils% 2.2 % (0-5); Hematocrit 40.7 % (37-47); Hemoglobin 12.8 g/dL (12.0-15.0); Lymphocyte # 1.36 X10^3/ul (0.83-4.51); Mean Corp Hgb Conc 31.4 g/dL (32-36); Mean Corpuscular Hgb 28.9 pg (27.0-32.0); Mean Corpuscular Volume 91.9 fL (81-99); Mean Platelet Vol. 10.7 fl (6.2-12.0); Monocyte# 0.63 X10^3/uL; Monocyte% 7.4 % (0-10); NRBC Flagged by Analyzer 0 % (0-5); Neutrophil # 6.19 X10^3/uL (2.7-7.7); Neutrophil % 73.1 % (47-70); Platelet Count 338 K/mm3 (150-450); RBC Distribution Width CV 12.3 % (11.6-14.6); RBC Distribution Width SD 41.5 fl (35.1-43.9); Red Blood Count 4.43 M/mm3 (4.2-5.4); White Blood Count 8.5 K/mm3 (4.4-11.0)
[2023-01-11 07:55] LABS: Cholesterol 167 mg/dL (200); High Density Lipoprotein 54 mg/dL; Triglycerides 114 mg/dL; Very Low Density Lipoprotein 23 mg/dL (5-40)
[2023-01-11 08:07] LABS: ALB/GLOB Ratio 0.9 RATIO (0.9-2.4); AST(SGOT) 20 U/L (15-37); Alanine Aminotransfer ALT/SGPT 36 U/L (13-56); Albumin, Serum 3.2 g/dL (3.2-5.0); Alkaline Phosphatase 78 U/L (45-117); Anion Gap 2 (5-15); BUN 20 mg/dL (7-18); BUN/Creat Ratio 23.4 RATIO (10-20); Bilirubin, Direct 0.25 mg/dL (0.00-0.30); Chloride 105 mmol/L (98-107); Creatinine, Serum 0.86 mg/dL (0.55-1.02); EST Glomerular Filtration Rate 68 mL/min (>60); Est Glom Filt Rate - Afr Amer 82 mL/min (>60); Globulin 3.7 g/dL (2.2-4.2); Glucose 107 mg/dL (74-106); Magnesium 2.3 mg/dL (1.6-2.6); Protein, Total 6.9 g/dL (6.4-8.2); Sodium Level 138 mmol/L (136-145)
[2023-01-11 08:27] LABS: Vitamin D,25 Hydroxy 72.8 ng/mL
== END | disposition home or self-care (01) ==
LOC: LAB 06:10
PROVIDERS: Internal Medicine Cardiovascular Disease; PCP Internal Medicine; Referring Provider Internal Medicine Rheumatology; Visit Provider Internal Medicine Rheumatology
DX: M06.00 Rheumatoid arthritis without rheumatoid factor, unspecified site (principal); Z79.899 Other long term (current) drug therapy; E55.9 Vitamin D deficiency, unspecified; I10 Essential (primary) hypertension; E78.00 Pure hypercholesterolemia, unspecified
CPT/HCPCS: 80053; 80061; 82248; 82306; 83735; 84443; 85025

== ENCOUNTER 2023-03-01 07:41 | Day surgery (SDC) | payer MEDICARE, OTHER, SELFPAY ==
[2023-03-01 08:01] VITALS: BP 128/68; PULSE 77; RESP 16; TEMP 36.1; O2SAT 100; BMI 20.5
[2023-03-01] MEDS: Lactated Ringers 1,000 ML 15 ML IV (08:13)
--- NOTE | 2023-03-01 08:29 | PCM.HP.BLA ---
History and Physical Date of Admission: 03/01/23 Intake Vital Signs 02/17/2309:07 02/24/2307:58 Height 5 ft 2 in 5 ft 2 in Weight: 116 lb 8 oz 118 lb BMI 21.3 21.5 BP 116/73 146/73 H Blood Pressure Location Lt brachial Rt brachial Position Sitting Sitting Respiration 18 17 Pulse 79 67 Pulse Source Monitor Monitor Temp 98.2 F 96.5 F L Temp Source Temporal Temporal Pulse Oximetry (%) 96 100 Oxygen Delivery Method room air room air Intake Visit Reasons: POSITIVE COLOGUARD Chief Complaint: positive cologuard Allergies hydroxychloroquine Allergy (Severe, Verified 02/24/23 11:22) Itchingbee venom protein (honey bee) Allergy (Mild, Verified 02/24/23 11:22) rednessibuprofen Allergy (Mild, Verified 02/24/23 11:22) rashPenicillins Allergy (Mild, Verified 02/24/23 11:22) Rashrosuvastatin [From Crestor] Allergy (Mild, Verified 02/24/23 11:22) muscle pain Medications aspirin 81 mg tablet,delayed release 81 mg PO DAILY@0800 10/27/17 [History Confirmed 02/24/23] atenolol 50 mg tablet 50 mg PO QHS #90 tabs 07/20/22 [Rx Confirmed 02/24/23] cholecalciferol (vitamin D3) 25 mcg (1,000 unit) tablet 2,000 unit PO BID 07/20/22 [History Confirmed 02/24/23] lisinopril 20 mg tablet 20 mg PO QHS #90 tabs 07/20/22 [Rx Confirmed 02/24/23] methotrexate sodium 2.5 mg tablet 12.5 mg PO QWEEK 01/31/23 [History Confirmed 02/24/23] folic tabs 2 mg PO DAILY 02/17/23 [History Confirmed 02/24/23] [facility] Medical History (Updated 02/24/23 @ 14:[address] Donnie Fish MD) Abnormal EKG Arthritis Cancer Cardiology follow-up encounter Carpal tunnel syndrome Colitis Diverticulosis of colon Dysuria Essential hypertension Flank pain Hematuria High cholesterol History of echocardiogram History of Holter monitoring History of kidney stones History of steroid therapy Hyperlipidemia Hypertension Inflammatory polyarthropathy Injury of head and neck Kidney stone Leg cramps Myalgia due to statin Neuropathy Non-smoker Normal stress echocardiogram Onychomycosis Post-menopausal Premature atrial complexes Preop cardiovascular exam Rheumatoid arthritis Uterovaginal prolapse, incomplete Vitamin D deficiency Wears glasses Surgical History (Updated 02/24/23 @ 11:38 by Katlyn Schaeffer) History of cataract surgery History of D&C History of hysterectomy History of hysteroscopy History of lithotripsy History of tonsillectomy and adenoidectomy Hx of basal cell carcinoma excision Hx of cystoscopy Family History Father CAD (coronary artery disease) History of coronary artery bypass surgery AlcoholismSister Anemia Blood clot in vein Diabetes Kidney disease Liver disease CVA (cerebral vascular accident)Mother Asthma Arthritis Bowel disease Osteoporosis Social History Smoking Status: Never smoker alcohol intake: never details: rare substance use type: does not use caffeine: No what type of physical activity do you participate in: walking frequency: 3-4 times per week HPI HPI HPI: Patient is an 82-year-old female here for positive Cologuard. She denies abdominal pain or blood in the stool. She says she occasionally has lower left back pain that radiates around to the front but does not think it is from the abdomen. She denies blood in her stool. She has had a colonoscopy in the past but it was over 10 years ago. ROS General General: No weight change, appetite, fatigue, colon cancer, breast cancer or weakness HEENT HEENT: No difficulty swallowing, eye injury, eye surgery, swollen glands or hoarseness Endo Endocrine: No thyroid disease, diabetes mellitus, thyroid cancer, Hair loss, heat intolerance or cold intolerance Skin Skin: No rash or changing moles Musc Musculoskeletal: Yes back problems, arthritis and rheumatoid arthritis; No gout or joint pain Cardio Cardiovascular: Yes heart disease and high blood pressure; No murmur, pacemaker, atrial fibrillation, heart attack, heart stent, palpitations, shortness of breat with exertion or chest pain Psych Psychiatric: No depression, anxiety or hearing voices Resp Respiratory: No shortness of breath, No sleep apnea, No cough, No COPD, No asthma, No emphysema and No wheezing Gastro Gastrointestinal: Yes abdominal pain, No nausea or vomiting, No diarrhea, No constipation, No blood in stool, No acid reflux, No hemorrhoids, No ulcers, No gallbladder problem and No black,tarry stools Camacho Hematologic: No blood thinners, No blood disorders, No bleeding, No anemia and No blood clots Neuro Neurologic: No system reviewed and no additional complaints, except as documented, No as per HPI, No abnormal gait, No abnormal hearing, No abnormal movements, No abnormal speech, No behavioral changes, No burning sensations, No confusion, No convulsions, No disequilibrium, No dizziness, No localized weakness, No frequent falls, No headache(s), No lack of coordination, No loss of vision, No memory loss, No numbness, No other visual disturbances, No radicular pain, No restless legs, No sensory deficit, No syncope, No tingling, No tremor(s), No weakness and No other Exam Const General: cooperative Orientation: alert and oriented x3 HENMT Head: normal to inspection Neck Neck: normal visual inspection and full ROM Chest Chest palpation & inspection: normal inspection of the chest Resp Effort & Inspection: normal respiratory effort Auscultation: clear to auscultation bilaterally Cardio Rate: regular rate Rhythm: regular rhythm GI Inspection: non-distended Palpation: soft and nontender Skin General: no rashes or lesions noted Neuro General: patient alert and patient oriented x3 Extrem General: full ROM Psych Appearance: grossly normal Mental Status: mental status grossly normal Assessment and Plan Assessment and Plan (1) Positive colorectal cancer screening using Cologuard test: Status: Acute Plan: Recommend colonoscopy due to positive Cologuard. I explained endoscopy in detail to the patient. I explained the risks including but not limited to stroke or heart attack with anesthesia, perforation of the GI tract, bleeding, infection. I explained that any of these could necessitate further emergency surgery. The patient understands and all questions were answered sufficiently. The patient wishes to proceed with procedure. Donnie Fish MD Pager: [facility] [address] [place] [address], [address] [place] [address] Office: I have examined the patient and the H&P has been reviewed. There are no clinical changes since date of exam.
[2023-03-01 09:00] VITALS: BP 115/45; BP 128/68; PULSE 70; RESP 16; TEMP 36.4; O2SAT 100
--- NOTE | 2023-03-01 09:04 | OP.COLON_ITS ---
Patient Name: Dian Domínguez Procedure Date: 03/01/2023 8:41 AM Date of : 1940 Age: 82 Procedure: Colonoscopy Indications: Positive Cologuard test Providers: Donnie Fish MD Referring MD: Cristal Astudillo Medicines: Monitored Anesthesia Care Patient Profile: This is an 82 year old female. Refer to note in patient chart for documentation of history and physical. Last Colonoscopy: several years ago. Complications: No immediate complications. Procedure: Pre-Anesthesia Assessment: - Prior to the procedure, a History and Physical was performed, and patient medications and allergies were reviewed. The patient's tolerance of previous anesthesia was also reviewed. The risks and benefits of the procedure and the sedation options and risks were discussed with the patient. All questions were answered, and informed consent was obtained. Prior Anticoagulants: The patient has taken no anticoagulant or antiplatelet agents. After reviewing the risks and benefits, the patient was deemed in satisfactory condition to undergo the procedure. After I obtained informed consent, the scope was passed under direct vision. Throughout the procedure, the patient's blood pressure, pulse, and oxygen saturations were monitored continuously. The Colonoscope was introduced through the anus and advanced to the cecum, identified by appendiceal orifice and ileocecal valve. The colonoscopy was performed without difficulty. The patient tolerated the procedure well. The quality of the bowel preparation was good. The ileocecal valve, appendiceal orifice, and rectum were photographed. Scope In: 8:47:29 AM Scope Withdrawal Time 0 hours 4 minutes 14 seconds Scope Out: 8:55:24 AM Total Procedure Duration Time 0 hours 7 minutes 55 seconds Findings: The entire examined colon appeared normal on direct and retroflexion views. Impression: - The entire examined colon is normal on direct and retroflexion views. - No specimens collected. Recommendation: - Discharge patient to home. - Resume previous diet. - Continue present medications. - Repeat colonoscopy in 10 years for screening purposes. Procedure Code(s): --- Professional --- 39635, Colonoscopy, flexible; diagnostic, including collection of specimen(s) by brushing or washing, when performed (separate procedure) Diagnosis Code(s): --- Professional --- R19.5, Other fecal abnormalities CPT copyright 2021 [employer]. All rights reserved. The codes documented in this report are preliminary and upon social media project manager review may be revised to meet current compliance requirements. Donnie Fish MD 03/01/2023 9:04:24 AM This report has been signed electronically. Number of Addenda: 0 Note Initiated On: 03/01/2023 8:41 AM
[2023-03-01 09:05] VITALS: BP 110/44; BP 128/68; PULSE 70; RESP 16; O2SAT 99
--- NOTE | 2023-03-01 09:05 | OP.CCLET_ITS ---
03/01/2023 Cristal Astudillo [facility] [address] [place] [address] Re : Colonoscopy procedure for Dian Domínguez Dear Dr. Astudillo This procedure was performed on Wednesday, March 01, 2023. My impressions and recommendations are as follows: Impressions : - The entire examined colon is normal on direct and retroflexion views. - No specimens collected. Recommendations : - Discharge patient to home. - Resume previous diet. - Continue present medications. - Repeat colonoscopy in 10 years for screening purposes. My findings are described in the full procedure note, which is enclosed. If I can be of further assistance, please feel free to contact me at Doctor phone number(s): , Work: . Sincerely, Donnie Fish MD 03/01/2023 9:04:24 AM This report has been signed electronically.
[2023-03-01 09:10] VITALS: BP 112/49; BP 128/68; PULSE 67; RESP 16; O2SAT 100
[2023-03-01 09:15] VITALS: BP 125/51; BP 128/68; PULSE 60; RESP 16; O2SAT 98
[2023-03-01 09:41] VITALS: BP 128/68
== END 2023-03-01 09:43 | disposition home or self-care (01) ==
LOC: EN 07:42 → AC 07:43
PROVIDERS: PCP Internal Medicine; Referring Provider Internal Medicine; Visit Provider Surgery
PROC: 0DJD8ZZ Inspection of Lower Intestinal Tract, Via Natural or Artificial Opening Endoscopic (ICD-10-PCS; CPT 45378; principal; 2023-03-01 08:40)
DX: R19.5 Other fecal abnormalities (principal); I10 Essential (primary) hypertension; E78.5 Hyperlipidemia, unspecified
CPT/HCPCS: 45378; J7120; J2405

== ENCOUNTER → 2023-03-22 | Outpatient (CLI) | payer MEDICARE, OTHER, SELFPAY ==
[2023-03-22 07:02] LABS: Absolute Neutrophil Count 5.5 X10^3/uL (2.0-7.7); Basophil# 0.08 X10^3/uL; Eosinophils% 1.3 % (0-5); Hematocrit 42.1 % (37-47); Hemoglobin 13.3 g/dL (12.0-15.0); Lymphocyte % 19.3 % (19-41); Mean Corp Hgb Conc 31.6 g/dL (32-36); Mean Corpuscular Hgb 29.2 pg (27.0-32.0); Mean Corpuscular Volume 92.5 fL (81-99); Mean Platelet Vol. 10.4 fl (6.2-12.0); Monocyte# 0.52 X10^3/uL; Monocyte% 6.7 % (0-10); NRBC Flagged by Analyzer 0 % (0-5); Neutrophil # 5.51 X10^3/uL (2.7-7.7); Neutrophil % 71.1 % (47-70); Platelet Count 347 K/mm3 (150-450); RBC Distribution Width CV 12.9 % (11.6-14.6); RBC Distribution Width SD 43.6 fl (35.1-43.9); Red Blood Count 4.55 M/mm3 (4.2-5.4); White Blood Count 7.8 K/mm3 (4.4-11.0)
[2023-03-22 07:46] LABS: ALB/GLOB Ratio 0.9 RATIO (0.9-2.4); AST(SGOT) 21 U/L (15-37); Alanine Aminotransfer ALT/SGPT 42 U/L (13-56); Albumin, Serum 3.2 g/dL (3.2-5.0); Alkaline Phosphatase 80 U/L (45-117); Anion Gap 2 (5-15); BUN 18 mg/dL (7-18); Bilirubin, Direct 0.15 mg/dL (0.00-0.30); Calcium,Total 9.2 mg/dL (8.5-10.1); Chloride 106 mmol/L (98-107); Cholesterol 248 mg/dL (200); Creatinine, Serum 0.78 mg/dL (0.55-1.02); EST Glomerular Filtration Rate 75 mL/min (>60); Est Glom Filt Rate - Afr Amer 91 mL/min (>60); Globulin 3.7 g/dL (2.2-4.2); Glucose 117 mg/dL (74-106); High Density Lipoprotein 51 mg/dL; Potassium 4.2 mmol/L (3.5-5.1); Protein, Total 6.9 g/dL (6.4-8.2); Sodium Level 140 mmol/L (136-145); Triglycerides 137 mg/dL; Very Low Density Lipoprotein 27 mg/dL (5-40)
== END | disposition home or self-care (01) ==
LOC: LAB 06:12
PROVIDERS: PCP Internal Medicine; Referring Provider Nurse Practitioner Family; Visit Provider Nurse Practitioner Family
DX: M06.00 Rheumatoid arthritis without rheumatoid factor, unspecified site (principal); Z79.899 Other long term (current) drug therapy; I10 Essential (primary) hypertension
CPT/HCPCS: 36415; 80053; 80061; 82248; 85025

== ENCOUNTER → 2023-05-18 | Outpatient (CLI) | payer MEDICARE, OTHER, SELFPAY ==
[2023-05-18 07:11] LABS: Absolute Neutrophil Count 6.9 X10^3/uL (2.0-7.7); Basophil# 0.06 X10^3/uL; Basophil% 0.7 % (0-1); Eosinophils% 1.1 % (0-5); Hematocrit 39.2 % (37-47); Hemoglobin 12.9 g/dL (12.0-15.0); Lymphocyte % 13.5 % (19-41); Mean Corp Hgb Conc 32.9 g/dL (32-36); Mean Corpuscular Hgb 30.1 pg (27.0-32.0); Mean Corpuscular Volume 91.4 fL (81-99); Mean Platelet Vol. 10.5 fl (6.2-12.0); Monocyte# 0.58 X10^3/uL; Monocyte% 6.5 % (0-10); NRBC Flagged by Analyzer 0 % (0-5); Neutrophil # 6.94 X10^3/uL (2.7-7.7); Neutrophil % 77.8 % (47-70); Platelet Count 335 K/mm3 (150-450); RBC Distribution Width CV 12.1 % (11.6-14.6); RBC Distribution Width SD 40.4 fl (35.1-43.9); Red Blood Count 4.29 M/mm3 (4.2-5.4); White Blood Count 8.9 K/mm3 (4.4-11.0)
[2023-05-18 07:39] LABS: ALB/GLOB Ratio 0.9 RATIO (0.9-2.4); AST(SGOT) 19 U/L (15-37); Alanine Aminotransfer ALT/SGPT 33 U/L (13-56); Albumin, Serum 3.2 g/dL (3.2-5.0); Alkaline Phosphatase 78 U/L (45-117); Anion Gap 2 (5-15); BUN 20 mg/dL (7-18); BUN/Creat Ratio 25.4 RATIO (10-20); Chloride 107 mmol/L (98-107); Creatinine, Serum 0.79 mg/dL (0.55-1.02); EST Glomerular Filtration Rate 75 mL/min (>60); Est Glom Filt Rate - Afr Amer 90 mL/min (>60); Globulin 3.6 g/dL (2.2-4.2); Glucose 105 mg/dL (74-106); Potassium 3.7 mmol/L (3.5-5.1); Protein, Total 6.8 g/dL (6.4-8.2); Sodium Level 139 mmol/L (136-145)
== END | disposition home or self-care (01) ==
PROVIDERS: PCP Internal Medicine; Referring Provider Internal Medicine Rheumatology; Visit Provider Internal Medicine Rheumatology
DX: M06.00 Rheumatoid arthritis without rheumatoid factor, unspecified site (principal); Z79.899 Other long term (current) drug therapy
CPT/HCPCS: 36415; 80053; 85025

== ENCOUNTER → 2023-07-07 | Outpatient (CLI) | payer MEDICARE, OTHER, SELFPAY ==
[2023-07-07 08:02] LABS: AST(SGOT) 19 U/L (15-37); Alanine Aminotransfer ALT/SGPT 29 U/L (13-56); Albumin, Serum 3.3 g/dL (3.2-5.0); Alkaline Phosphatase 89 U/L (45-117); Cholesterol 237 mg/dL (200); Globulin 3.7 g/dL (2.2-4.2); High Density Lipoprotein 54 mg/dL; Triglycerides 158 mg/dL; Very Low Density Lipoprotein 32 mg/dL (5-40)
== END | disposition home or self-care (01) ==
LOC: LAB 06:00
PROVIDERS: PCP Internal Medicine; Referring Provider Nurse Practitioner Family; Visit Provider Nurse Practitioner Family
DX: E78.5 Hyperlipidemia, unspecified (principal)
CPT/HCPCS: 36415; 80061; 80076

== ENCOUNTER → 2023-08-16 | Outpatient (CLI) | payer MEDICARE, OTHER, SELFPAY ==
--- NOTE | 2023-08-16 09:28 | BI_ITS ---
MAMMOGRAPHY - BILATERAL SCREENING 3-D TOMOSYNTHESIS REASON FOR EXAM: Female, 82 years old. Breast cancer screening PERTINENT HISTORY: No significant family history. TECHNIQUE: 2-D mammograms and 3-D Tomosynthesis of the breast (s) were performed. CAD was performed. COMPARISON: 08/11/2022 FINDINGS: The breast composition is heterogeneously dense that can obscure small breast masses. Scattered benign calcifications are seen. No dense spiculated masses or suspicious microcalcifications are identified. No architectural distortion is identified. There is no skin thickening or retraction. There has been no significant change since the prior study. BI/SCRN MAMM (CAD)W/IZABELLA BILAT IMPRESSION: No mammographic signs of malignancy. Routine yearly mammograms recommended. ASSESSMENT CATEGORY: BIRADS Category 1: Negative. A letter regarding these results will be sent to the patient by the facility within 30 days. FOLLOW UP RECOMMENDATION: Yearly follow up mammogram recommended. (A) Approximately 10% of breast cancers are not detected by mammography. A normal mammogram should not delay biopsy of a clinically suspicious abnormality. Electronically Signed: Gilberto Hendricks MD at 17:40 EST ,
== END | disposition home or self-care (01) ==
LOC: OPBI 09:28
PROVIDERS: PCP Internal Medicine; Referring Provider Internal Medicine; Visit Provider Internal Medicine
DX: Z12.31 Encounter for screening mammogram for malignant neoplasm of breast (principal)
CPT/HCPCS: 77063; 77067

== ENCOUNTER → 2023-08-19 | Outpatient (CLI) | payer MEDICARE, OTHER, SELFPAY ==
[2023-08-19 07:35] LABS: Hemoglobin A1c 5.6 % (3.8-5.6)
[2023-08-19 08:05] LABS: Vitamin D,25 Hydroxy 55.7 ng/mL
[2023-08-19 08:21] LABS: ALB/GLOB Ratio 0.8 RATIO (0.9-2.4); AST(SGOT) 19 U/L (15-37); Alanine Aminotransfer ALT/SGPT 22 U/L (13-56); Albumin, Serum 3.3 g/dL (3.2-5.0); Alkaline Phosphatase 98 U/L (45-117); Anion Gap 7 (5-15); BUN 19 mg/dL (7-18); BUN/Creat Ratio 20.7 RATIO (10-20); Calcium,Total 9.1 mg/dL (8.5-10.1); Chloride 106 mmol/L (98-107); Creatinine, Serum 0.92 mg/dL (0.55-1.02); EST Glomerular Filtration Rate 63 mL/min (>60); Est Glom Filt Rate - Afr Amer 76 mL/min (>60); Glucose 103 mg/dL (74-106); Potassium 4.2 mmol/L (3.5-5.1); Protein, Total 7.3 g/dL (6.4-8.2); Sodium Level 140 mmol/L (136-145)
[2023-08-19 13:59] LABS: Absolute Lymphocyte Count 1.37 X10^3/uL (0.83-4.51); Absolute Neutrophil Count 7.4 X10^3/uL (2.0-7.7); Basophil# 0.09 X10^3/uL; Basophil% 0.9 % (0-1); Eosinophil# 0.12 X10^3/uL; Eosinophils% 1.2 % (0-5); Hematocrit 42.9 % (37-47); Hemoglobin 13.7 g/dL (12.0-15.0); Lymphocyte # 1.37 X10^3/ul (0.83-4.51); Lymphocyte % 14.3 % (19-41); Mean Corp Hgb Conc 31.9 g/dL (32-36); Mean Corpuscular Hgb 28.6 pg (27.0-32.0); Mean Corpuscular Volume 89.6 fL (81-99); Mean Platelet Vol. 10.4 fl (6.2-12.0); Monocyte# 0.61 X10^3/uL; Monocyte% 6.3 % (0-10); NRBC Flagged by Analyzer 0 % (0-5); Neutrophil # 7.38 X10^3/uL (2.7-7.7); Neutrophil % 76.9 % (47-70); Platelet Count 399 K/mm3 (150-450); RBC Distribution Width CV 12.3 % (11.6-14.6); RBC Distribution Width SD 40.8 fl (35.1-43.9); Red Blood Count 4.79 M/mm3 (4.2-5.4); White Blood Count 9.6 K/mm3 (4.4-11.0)
== END | disposition home or self-care (01) ==
PROVIDERS: PCP Internal Medicine; Referring Provider Internal Medicine; Visit Provider Internal Medicine
DX: E78.5 Hyperlipidemia, unspecified (principal); I10 Essential (primary) hypertension; M79.10 Myalgia, unspecified site; T46.6X5A Adverse effect of antihyperlipidemic and antiarteriosclerotic drugs, initial encounter; E55.9 Vitamin D deficiency, unspecified; R73.9 Hyperglycemia, unspecified; K57.30 Diverticulosis of large intestine without perforation or abscess without bleeding
CPT/HCPCS: 36415; 80053; 82306; 83036; 84443; 85025

== ENCOUNTER → 2023-11-10 | Outpatient (CLI) | payer MEDICARE, OTHER, SELFPAY ==
[2023-11-10 06:53] LABS: Absolute Neutrophil Count 5.8 X10^3/uL (2.0-7.7); Basophil# 0.07 X10^3/uL; Basophil% 0.9 % (0-1); Eosinophil# 0.13 X10^3/uL; Eosinophils% 1.6 % (0-5); Hematocrit 40.9 % (37-47); Hemoglobin 12.8 g/dL (12.0-15.0); Lymphocyte % 16.4 % (19-41); Mean Corp Hgb Conc 31.3 g/dL (32-36); Mean Corpuscular Hgb 28.6 pg (27.0-32.0); Mean Corpuscular Volume 91.5 fL (81-99); Mean Platelet Vol. 10.6 fl (6.2-12.0); Monocyte# 0.58 X10^3/uL; Monocyte% 7.3 % (0-10); NRBC Flagged by Analyzer 0 % (0-5); Neutrophil # 5.82 X10^3/uL (2.7-7.7); Neutrophil % 73.3 % (47-70); Platelet Count 329 K/mm3 (150-450); RBC Distribution Width CV 12.5 % (11.6-14.6); RBC Distribution Width SD 41.7 fl (35.1-43.9); Red Blood Count 4.47 M/mm3 (4.2-5.4); White Blood Count 7.9 K/mm3 (4.4-11.0)
[2023-11-10 07:48] LABS: ALB/GLOB Ratio 0.9 RATIO (0.9-2.4); AST(SGOT) 13 U/L (15-37); Alanine Aminotransfer ALT/SGPT 20 U/L (13-56); Albumin, Serum 3.1 g/dL (3.2-5.0); Alkaline Phosphatase 82 U/L (45-117); Anion Gap 4 (5-15); BUN 18 mg/dL (7-18); BUN/Creat Ratio 23.4 RATIO (10-20); Chloride 107 mmol/L (98-107); Creatinine, Serum 0.77 mg/dL (0.55-1.02); EST Glomerular Filtration Rate 77 mL/min (>60); Est Glom Filt Rate - Afr Amer 93 mL/min (>60); Globulin 3.5 g/dL (2.2-4.2); Glucose 101 mg/dL (74-106); Potassium 4.3 mmol/L (3.5-5.1); Protein, Total 6.6 g/dL (6.4-8.2); Sodium Level 138 mmol/L (136-145)
== END | disposition home or self-care (01) ==
LOC: LAB 06:09
PROVIDERS: PCP Internal Medicine; Referring Provider Internal Medicine Rheumatology; Visit Provider Internal Medicine Rheumatology
DX: M06.00 Rheumatoid arthritis without rheumatoid factor, unspecified site (principal); Z79.899 Other long term (current) drug therapy; M18.0 Bilateral primary osteoarthritis of first carpometacarpal joints
CPT/HCPCS: 36415; 80053; 85025

== ENCOUNTER → 2024-01-18 | Outpatient (CLI) | payer MEDICARE, OTHER, SELFPAY ==
[2024-01-18 07:18] LABS: AST(SGOT) 15 U/L (15-37); Alanine Aminotransfer ALT/SGPT 27 U/L (13-56); Albumin, Serum 3.3 g/dL (3.2-5.0); Alkaline Phosphatase 91 U/L (45-117); Bilirubin, Direct 0.13 mg/dL (0.00-0.30); Cholesterol 244 mg/dL (200); Globulin 3.8 g/dL (2.2-4.2); High Density Lipoprotein 48 mg/dL; Protein, Total 7.1 g/dL (6.4-8.2); Triglycerides 216 mg/dL; Very Low Density Lipoprotein 43 mg/dL (5-40)
== END | disposition home or self-care (01) ==
PROVIDERS: PCP Internal Medicine; Referring Provider Nurse Practitioner Family; Visit Provider Nurse Practitioner Family
DX: E78.00 Pure hypercholesterolemia, unspecified (principal)
CPT/HCPCS: 36415; 80061; 80076

== ENCOUNTER → 2024-03-28 | Outpatient (CLI) | payer MEDICARE, OTHER, SELFPAY ==
--- NOTE | 2024-03-28 12:32 | STRESSREP_ITS ---
Stress Test Report Exercise myocardial perfusion stress test. 83-year-old lady with a history of chest pain Stress protocol: Resting EKG demonstrates normal sinus rhythm with a rate of 68 bpm bpm resting blood pressure is 142/80 mmHg. The patient exercised according to the regular Shawn protocol for a total duration of 5 minutes and 32 seconds attaining a ma ximum heart rate of 169 bpm which was 121% of maximum predicted heart rate; the maximum workload was 7 metabolic equivalents. At rest there were no ST or T wave changes noted to suggest ischemia and at peak exercise upsloping ST changes only were noted which did not meet the criteria for ischemia. No clinical angina was noted the test was terminated due to the target heart rate being achieved/fatigue. The peak blood pressure was 178/62 mmHg. Rate-pressure product was 23,000. Myocardial perfusion protocol. 11.5 mCi of technetium 99m sestamibi was injected at rest. The patient exercised according to regular Shawn protocol for total duration of 5-1/2-minute and at peak exercise 33.9 mCi of technetium 99m sestamibi was injected stress images were obtained stress and rest images were reconstructed in comparing the short axis vertical long and horizontal long axis. Gated images were also obtained. Perfusion SPECT analysis: Review of the stress images demonstrate normal uptake of tracer noted in all areas of the myocardium. The resting images similarly demonstrate normal uptake of tracer noted in all areas of the myocardium. No areas of reversibility are noted to suggest ischemia no previous infarct was noted. Gated SPECT analysis: The gated ejection fraction is 81%. Conclusion: Normal exercise myocardial perfusion stress test at a moderate workload Preserved ejection fraction.
== END | disposition home or self-care (01) ==
PROVIDERS: PCP Internal Medicine; Referring Provider Nurse Practitioner Family; Visit Provider Nurse Practitioner Family
DX: R07.9 Chest pain, unspecified (principal); I10 Essential (primary) hypertension; E78.2 Mixed hyperlipidemia
CPT/HCPCS: 78452; 93017; A9500; A4216

== ENCOUNTER → 2024-05-08 | Outpatient (CLI) | payer MEDICARE, OTHER, SELFPAY ==
[2024-05-08 06:34] LABS: Erythrocyte Sedimentation Rate 6 mm/hr (0-30)
[2024-05-08 06:45] LABS: Absolute Lymphocyte Count 1.03 X10^3/uL (0.83-4.51); Absolute Neutrophil Count 5.2 X10^3/uL (2.0-7.7); Basophil# 0.06 X10^3/uL; Basophil% 0.8 % (0-1); Eosinophil# 0.18 X10^3/uL; Eosinophils% 2.5 % (0-5); Hematocrit 39.9 % (37-47); Hemoglobin 12.6 g/dL (12.0-15.0); Lymphocyte # 1.03 X10^3/ul (0.83-4.51); Lymphocyte % 14.5 % (19-41); Mean Corp Hgb Conc 31.6 g/dL (32-36); Mean Corpuscular Hgb 28.4 pg (27.0-32.0); Mean Corpuscular Volume 89.9 fL (81-99); Mean Platelet Vol. 10.4 fl (6.2-12.0); Monocyte# 0.64 X10^3/uL; NRBC Flagged by Analyzer 0 % (0-5); Neutrophil # 5.17 X10^3/uL (2.7-7.7); Neutrophil % 72.8 % (47-70); Platelet Count 340 K/mm3 (150-450); RBC Distribution Width CV 12.3 % (11.6-14.6); RBC Distribution Width SD 40.5 fl (35.1-43.9); Red Blood Count 4.44 M/mm3 (4.2-5.4); White Blood Count 7.1 K/mm3 (4.4-11.0)
[2024-05-08 07:10] LABS: ALB/GLOB Ratio 0.9 RATIO (0.9-2.4); AST(SGOT) 12 U/L (15-37); Alanine Aminotransfer ALT/SGPT 22 U/L (13-56); Albumin, Serum 3.1 g/dL (3.2-5.0); Alkaline Phosphatase 91 U/L (45-117); Anion Gap 4 (5-15); BUN 17 mg/dL (7-18); BUN/Creat Ratio 20.5 RATIO (10-20); CRP 8.25 mg/L (0.0-3.0); Calcium,Total 9.1 mg/dL (8.5-10.1); Chloride 106 mmol/L (98-107); Creatinine, Serum 0.83 mg/dL (0.55-1.02); EST Glomerular Filtration Rate 70 mL/min (>60); Est Glom Filt Rate - Afr Amer 85 mL/min (>60); Globulin 3.5 g/dL (2.2-4.2); Glucose 116 mg/dL (74-106); Potassium 4.4 mmol/L (3.5-5.1); Protein, Total 6.6 g/dL (6.4-8.2); Sodium Level 138 mmol/L (136-145)
== END | disposition home or self-care (01) ==
PROVIDERS: PCP Internal Medicine; Referring Provider Internal Medicine Rheumatology; Visit Provider Internal Medicine Rheumatology
DX: M06.00 Rheumatoid arthritis without rheumatoid factor, unspecified site (principal); M18.0 Bilateral primary osteoarthritis of first carpometacarpal joints; Z79.899 Other long term (current) drug therapy
CPT/HCPCS: 36415; 80053; 85025; 85652; 86140

== ENCOUNTER → 2024-06-22 | Outpatient (CLI) | payer MEDICARE, OTHER, SELFPAY ==
[2024-06-22 07:15] LABS: AST(SGOT) 15 U/L (15-37); Alanine Aminotransfer ALT/SGPT 22 U/L (13-56); Albumin, Serum 3.1 g/dL (3.2-5.0); Alkaline Phosphatase 86 U/L (45-117); Bilirubin, Direct 0.14 mg/dL (0.00-0.30); Cholesterol 229 mg/dL (200); Globulin 3.4 g/dL (2.2-4.2); High Density Lipoprotein 53 mg/dL; Protein, Total 6.5 g/dL (6.4-8.2); Triglycerides 127 mg/dL; Very Low Density Lipoprotein 25 mg/dL (5-40)
== END | disposition home or self-care (01) ==
PROVIDERS: PCP Internal Medicine; Referring Provider Nurse Practitioner Family; Visit Provider Nurse Practitioner Family
DX: E78.2 Mixed hyperlipidemia (principal)
CPT/HCPCS: 36415; 80061; 80076

== ENCOUNTER → 2024-08-02 | Outpatient (CLI) | payer MEDICARE, OTHER, SELFPAY ==
[2024-08-02 06:35] LABS: Absolute Lymphocyte Count 1.22 X10^3/uL (0.83-4.51); Absolute Neutrophil Count 5.8 X10^3/uL (2.0-7.7); Basophil# 0.07 X10^3/uL; Basophil% 0.9 % (0-1); Eosinophils% 1.3 % (0-5); Hematocrit 38.2 % (37-47); Hemoglobin 12.5 g/dL (12.0-15.0); Lymphocyte # 1.22 X10^3/ul (0.83-4.51); Lymphocyte % 15.8 % (19-41); Mean Corp Hgb Conc 32.7 g/dL (32-36); Mean Corpuscular Hgb 29.5 pg (27.0-32.0); Mean Corpuscular Volume 90.1 fL (81-99); Mean Platelet Vol. 10.5 fl (6.2-12.0); Monocyte# 0.54 X10^3/uL; NRBC Flagged by Analyzer 0 % (0-5); Neutrophil # 5.75 X10^3/uL (2.7-7.7); Neutrophil % 74.5 % (47-70); Platelet Count 348 K/mm3 (150-450); RBC Distribution Width CV 13.2 % (11.6-14.6); RBC Distribution Width SD 42.7 fl (35.1-43.9); Red Blood Count 4.24 M/mm3 (4.2-5.4); White Blood Count 7.7 K/mm3 (4.4-11.0)
[2024-08-02 06:47] LABS: ALB/GLOB Ratio 0.9 RATIO (0.9-2.4); AST(SGOT) 19 U/L (15-37); Alanine Aminotransfer ALT/SGPT 24 U/L (13-56); Albumin, Serum 3.3 g/dL (3.2-5.0); Alkaline Phosphatase 79 U/L (45-117); Anion Gap 5 (5-15); BUN 22 mg/dL (7-18); BUN/Creat Ratio 23.7 RATIO (10-20); CRP 3.22 mg/L (0.0-3.0); Calcium,Total 9.2 mg/dL (8.5-10.1); Chloride 105 mmol/L (98-107); Creatinine, Serum 0.93 mg/dL (0.55-1.02); EST Glomerular Filtration Rate 62 mL/min (>60); Est Glom Filt Rate - Afr Amer 75 mL/min (>60); Globulin 3.5 g/dL (2.2-4.2); Glucose 114 mg/dL (74-106); Potassium 4.2 mmol/L (3.5-5.1); Protein, Total 6.8 g/dL (6.4-8.2); Sodium Level 138 mmol/L (136-145)
[2024-08-02 07:06] LABS: Erythrocyte Sedimentation Rate 3 mm/hr (0-30)
== END | disposition home or self-care (01) ==
LOC: LAB 05:59
PROVIDERS: PCP Internal Medicine; Referring Provider Internal Medicine Rheumatology; Visit Provider Internal Medicine Rheumatology
DX: M06.00 Rheumatoid arthritis without rheumatoid factor, unspecified site (principal); Z79.899 Other long term (current) drug therapy
CPT/HCPCS: 36415; 80053; 85025; 85652; 86140

== ENCOUNTER → 2024-08-16 | Outpatient (CLI) | payer MEDICARE, OTHER, SELFPAY ==
--- NOTE | 2024-08-16 08:15 | BI_ITS ---
PROCEDURE: SCRN MAMM (CAD)W/IZABELLA BILAT REASON FOR EXAM: F, Age 83 y/o, no family history. TECHNIQUE: Bilateral screening digital breast tomosynthesis with 2D and 3D images. Computer aided detection. COMPARISON: Prior exam(s) dating back to August 16, 2023.. FINDINGS: The breasts are heterogeneously dense which may obscure small masses. Stable small bilateral axillary lymph nodes. No suspicious masses, areas of developing architectural distortion, or suspicious calcifications. BI/SCRN MAMM (CAD)W/IZABELLA BILAT IMPRESSION: BI-RADS 2: BENIGN. RECOMMEND ANNUAL MAMMOGRAPHIC SCREENING. Follow-up code: Routine Follow-up The patient will be notified of the results by letter. Reading Location: [id number]
== END | disposition home or self-care (01) ==
PROVIDERS: PCP Internal Medicine; Referring Provider Internal Medicine; Visit Provider Internal Medicine
DX: Z12.31 Encounter for screening mammogram for malignant neoplasm of breast (principal)
CPT/HCPCS: 77063; 77067

== ENCOUNTER → 2024-09-07 | Outpatient (CLI) | payer MEDICARE, OTHER, SELFPAY ==
[2024-09-07 07:26] LABS: Vitamin D,25 Hydroxy 46.9 ng/mL (30-100)
== END | disposition home or self-care (01) ==
LOC: LAB 06:00
PROVIDERS: PCP Internal Medicine; Referring Provider Internal Medicine; Visit Provider Internal Medicine
DX: I10 Essential (primary) hypertension (principal); E55.9 Vitamin D deficiency, unspecified; R73.9 Hyperglycemia, unspecified
CPT/HCPCS: 36415; 82306; 83036; 84443

== ENCOUNTER → 2024-10-12 | Outpatient (CLI) | payer MEDICARE, OTHER, SELFPAY ==
[2024-10-12 06:58] LABS: Erythrocyte Sedimentation Rate 4 mm/hr (0-30)
[2024-10-12 07:00] LABS: Absolute Lymphocyte Count 1.38 X10^3/uL (0.83-4.51); Absolute Neutrophil Count 6.2 X10^3/uL (2.0-7.7); Basophil% 1.2 % (0-1); Eosinophil# 0.19 X10^3/uL; Eosinophils% 2.2 % (0-5); Hematocrit 35.2 % (37-47); Hemoglobin 11.7 g/dL (12.0-15.0); Lymphocyte # 1.38 X10^3/ul (0.83-4.51); Lymphocyte % 16.1 % (19-41); Mean Corp Hgb Conc 33.2 g/dL (32-36); Mean Corpuscular Hgb 30.9 pg (27.0-32.0); Mean Corpuscular Volume 92.9 fL (81-99); Mean Platelet Vol. 10.2 fl (6.2-12.0); NRBC Flagged by Analyzer 0 % (0-5); Neutrophil # 6.24 X10^3/uL (2.7-7.7); Neutrophil % 72.7 % (47-70); Platelet Count 338 K/mm3 (150-450); Red Blood Count 3.79 M/mm3 (4.2-5.4); White Blood Count 8.6 K/mm3 (4.4-11.0)
[2024-10-12 07:12] LABS: ALB/GLOB Ratio 1.5 RATIO (0.9-2.4); AST(SGOT) 18 U/L (<=31); Alanine Aminotransfer ALT/SGPT 17 U/L (<=34); Albumin, Serum 3.8 g/dL (3.4-4.8); Alkaline Phosphatase 83 U/L (35-104); Anion Gap 10 (5-15); BUN 19 mg/dL (4-19); BUN/Creat Ratio 21.2 RATIO (10-20); Carbon Dioxide 24.4 mmol/L (21.0-32.0); Chloride 106 mmol/L (98-108); EST Glomerular Filtration Rate 64 (>60); Globulin 2.6 g/dL (2.2-4.2); Glucose 99 mg/dL (70-99); Protein, Total 6.3 g/dL (5.9-8.4); Sodium Level 140 mmol/L (133-145); Total Bilirubin 0.88 mg/dL (0.00-1.30)
[2024-10-12 07:30] LABS: CRP 3.36 mg/L (0.0-3.0)
== END | disposition home or self-care (01) ==
LOC: LAB 06:00
PROVIDERS: PCP Internal Medicine; Referring Provider Internal Medicine Rheumatology; Visit Provider Internal Medicine Rheumatology
DX: M06.00 Rheumatoid arthritis without rheumatoid factor, unspecified site (principal); Z79.899 Other long term (current) drug therapy
CPT/HCPCS: 36415; 80053; 85025; 85652; 86140

== ENCOUNTER → 2025-01-03 | Outpatient (CLI) | payer MEDICARE, OTHER, SELFPAY ==
--- OUTSIDE RECORDS SUMMARY | 2025-01-03 06:01 | XMS RPT_ITS | CCD ---
Author Organization [facility]ini[facility] Care Team Providers Care Pulmonary Physical Therapist Name Role Phone Dr. Cristal Astudillo Primary Care Provider Dr. Marcial Moe Attending Provider Dr. Sathish Chan Referring Provider Dr. Pérez Eddy Referring Provider [facility] FRAMING SPECIALIST, EDDIE Lisa Attending Provider Dr. Cristal Astudillo Attending Provider [phone] Dr. Cristal Astudillo Referring Provider [phone] GERSON Hankins Attending Provider Unavailab Dr. Cristal Medina Primary Care Provider Dr. Cristal Astudillo Attending Provider [phone] Dr. Cristal Astudillo Referring Provider [phone] Dr. Cristal Astudillo Primary Care Provider Dr. Cristal Astudillo Referring Provider [phone] Dr. Marcial Moe Attending Provider [phone] Cristal Astudillo Attending Provider [phone] Dr. Cristal Astudillo Primary Care Provider Dr. Cristal Astudillo Attending Provider Dr. Cristal Astudillo Referring Provider Dr. Donnie Fish Attending Provider Dr. Donnie Fish Other Provider Dr. Cristal Astudillo Primary Care Provider Dr. Cristal Astudillo Attending Provider Dr. Cristal Astudillo Referring Provider Dr. Donnie Fish Attending Provider Dr. Donnie Fish Other Provider Dr. Cristal Astudillo Primary Care Provider Dr. Cristal Astudillo Referring Provider Roof FRAMING SPECIALIST, FRAMING SPECIALIST-C Sathish Lisa Attending Provider Dr. Cristal Astudillo Attending Provider Dr. Cristal Astudillo Primary Care Provider Dr. Cristal Astudillo Referring Provider Roof FRAMING SPECIALIST, FRAMING SPECIALIST-C Sathish Lisa Attending Provider Dr. Cristal Astudillo Attending Provider Wilda BINGHAM, Dr. Bee Primary Care Provider Gisela BINGHAM, Dr. Thibodeaux Attending Provider Gisela BINGHAM, Dr. Thibodeaux Referring Provider Roof FRAMING SPECIALIST-C, Sathish Lisa Attending Provider Roof FRAMING SPECIALIST-C, Sathish Lisa Referring Provider Wilda BINGHAM, Dr. Bee Attending Provider Wilda BINGHAM, Dr. Bee Referring Provider Wilda BINGHAM, Dr. Bee Primary Care Provider Gisela BINGHAM, Dr. Thibodeaux Attending Provider Gisela BINGHAM, Dr. Thibodeaux Referring Provider Abhi BINGHAM, Dr. Ceja Attending Provider Zafar See Attending Provider Cristal Astudillo Primary Care Unavailable Mckenna Adkins NP Attending Unavailable Cristal Astudillo Attending Unavailable Cristal Astudillo Primary Care Unavailable Cristal Astudillo Referring Unavailable Cristal Astudillo Primary Care Unavailable Narcisa FRAMING SPECIALIST, Sathish Lisa Consulting Unavailable Roof FRAMING SPECIALIST, Sathish H Referring Unavailable Abhi, Marcial Attending Unavailable Wilda, Cristal Primary Care Unavailable Wilda, Cristal Referring Unavailable Zafar Tolliver Attending Unavailable Wilda, Cristal Primary Care Unavailable Wilda, Cristal Attending Unavailable Wilda, Cristal Primary Care Unavailable Wilda, Cristal Referring Unavailable Roof FRAMING SPECIALIST, Sathish H Attending Unavailable Wilda, Cristal Primary Care Unavailable Wilda, Cristal Attending Unavailable Wilda, Cristal Attending Unavailable Wilda, Cristal Primary Care Unavailable Wilda, Cristal Primary Care Unavailable Wilda, Cristal Referring Unavailable Abhi, Cheswold Attending Unavailable Wilda, Cristal Attending Unavailable Wilda, Cristal Referring Unavailable Wilda, Cristal Primary Care Unavailable Wilda, Cristal Primary Care Unavailable Vellanki, Morelia Referring Unavailable Vellanki, Morelia Attending Unavailable Wilda, Cristal Primary Care Unavailable Roof FRAMING SPECIALIST, Sathish H Referring Unavailable Roof FRAMING SPECIALIST, Sathish H Attending Unavailable Wilda, Cristal Primary Care Unavailable Vellanki, Morelia Referring Unavailable Vellanki, Morelia Attending Unavailable Wilda, Cristal Primary Care Unavailable Roof FRAMING SPECIALIST, Sathish H Referring Unavailable Roof FRAMING SPECIALIST, Sathish H Attending Unavailable Wilda, Cristal Primary Care Unavailable Roof FRAMING SPECIALIST, Sathish H Attending Unavailable Roof FRAMING SPECIALIST, Sathish H Referring Unavailable Wilda, Cristal Primary Care Unavailable Vellanki, Morelia Referring Unavailable Vellanki, Morelia Attending Unavailable Wilda, Cristal Primary Care Unavailable Vellanki, Morelia Referring Unavailable Vellanki, Morelia Attending Unavailable Allergies Allergy Classification Reported Allergen(s) Allergy Type Date of Onset Reaction(s) Facility (17 sources) Ibuprofen Drug Allergy 08-28-19 22 rash [facility] (18 sources) Penicillins; Translations: [Penicillins] Allergy to substance 08-28-19 22 Rash [facility] (17 sources) rosuvastatin Drug Allergy 08-28-19 22 muscle pain [facility] (17 sources) bee venom protein (honey bee) Allergy to substance 08-28-19 22 redness [facility] (9 sources) Hydroxychloroquine Drug Allergy 03-01-20 23 Itching [facility] (7 sources) Pravastatin Drug Allergy 05-17-20 23 Myalgias/leg cramps. [facility] (1 source) Hydroxychloroquine Drug Allergy 10-09-19 25 [facility] (1 source) Ibuprofen Drug Allergy 10-09-19 [facility] (1 source) Pravastatin Drug Allergy 10-09-19 [facility] (1 source) rosuvastatin Drug Allergy 10-09-19 [facility] (1 source) bee venom protein (honey bee) Drug allergy (disorder) 10-09-19 [facility] Medications Current Medications Medication Drug Class(es) Dates Sig (Normalized) Sig (Original) aspirin 81 mg delayed release oral tablet (17 sources) Platelet Aggregation Inhibitor, Nonsteroidal Anti-inflammatory Drug Start: 10-27-2017 take 1 tablet by mouth once daily Aspirin 81 MG tablet Active 81 mg PO DAILY@0800 October 27, 2017 12:00am cholecalciferol 0.025 mg oral tablet (20 sources) Vitamin D Start: 07-21-2023 take 1 tablet by mouth twice daily Cholecalciferol (Vitamin D3) 25 mcg (1,000 unit) tablet Active 1000 U PO TWICE A DAY July 21, 2023 9:56am Start: 07-20-2022 End: 07-21-2023 take 1 tablet by mouth twice daily Cholecalciferol (Vitamin D3) 25 mcg (1,000 unit) tablet Discontinued 2000 U PO TWICE A DAY July 20, 2022 1:00am July 21, 2023 9:56am Start: 07-20-2022 take 25 ug by mouth twice daily Cholecalciferol (Vitamin D3) Active 25 MCG PO TWICE A DAY July 20, 2022 1:00am Start: 07-16-2021 End: 07-20-2022 take 1 tablet by mouth twice daily Cholecalciferol (Vitamin D3) 50 mcg (2,000 unit) tablet Discontinued 50 ug PO TWICE A DAY July 16, 2021 1:00am July 20, 2022 11:39am Start: 12-26-2017 End: 07-16-2021 take 1 capsule by mouth twice daily Cholecalciferol (Vitamin D3) 1,000 UNIT capsule Discontinued 1000 U PO TWICE A DAY December 26, 2017 12:00am July 16, 2021 9:54am doxycycline monohydrate 100 mg oral capsule (1 source) Tetracycline-class Drug Start: 10-08-2024 take 2 capsules by mouth twice daily Doxycycline Monohydrate 100 mg capsule Active 200 mg PO TWICE A DAY October 08, 2024 12:00am estradiol 0.1 mg/ml vaginal cream (3 sources) Estrogen Start: 08-06-2024 Estradiol 0.01 % (0.1 mg/gram) cream Active 1 g VAGINAL TWICE A WEEK August 06, 2024 1:00am folic acid 1 mg oral tablet (3 sources) Start: 08-06-2024 take 2 tablets by mouth once daily Folic Acid 1 mg tablet Active 2 mg PO daily August 06, 2024 1:00am methotrexate 2.5 mg oral tablet (14 sources) Folate Analog Metabolic Inhibitor Start: 09-06-2024 take 5 tablets by mouth every week Methotrexate Sodium 2.5 mg tablet Active 12.5 mg PO EVERY WEEK September 06, 2024 9:34am Start: 08-06-2024 End: 09-06-2024 Methotrexate Sodium 2.5 mg t ablet Discontinued mg PO August 06, 2024 1:00am September 06, 2024 9:35am Start: 01-31-2023 End: 07-21-2023 take 5 tablets by mouth every week Methotrexate Sodium 2.5 mg tablet Discontinued 12.5 mg PO EVERY WEEK January 31, 2023 12:00am July 21, 2023 9:56am TUESDAY NIGHT Start: 01-31-2023 End: 07-21-2023 take 12.5 mg by mouth every week Methotrexate Sodium Discontinued 12.5 MG PO EVERY WEEK January 31, 2023 12:00am July 21, 2023 9:56am TUESDAY NIGHT red yeast rice 600 mg oral capsule (3 sources) Start: 08-06-2024 take 1 capsule by mouth once daily Red Yeast Rice 600 mg capsule Active 600 mg PO daily August 06, 2024 1:00am give with meal/snack Completed/Discontinued Medications Medication Drug Class(es) Dates Sig (Normalized) Sig (Original) acetaminophen 500 mg oral tablet (17 sources) Start: 06-23-2018 End: 06-19-2020 take 1 tablet by mouth every four hours as needed for pain Acetaminophen 500 MG tablet Discontinued 500 mg PO EVERY 4 HOURS NEEDED as needed for Pain June 23, 2018 1:00am June 19, 2020 10:35am atenolol 50 mg oral tablet (20 sources) beta-Adrenergic Renetta Start: 10-27-2017 End: 10-09-2024 take 1 tablet by mouth at bedtime Atenolol 50 mg tablet Discontinued 50 mg PO AT BEDTIME 90 January 18, 2024 8:00am September 06, 2024 9:39am atorvastatin 10 mg oral tablet (7 sources) HMG-CoA Reductase Inhibitor Start: 05-19-2023 End: 07-21-2023 take 5 mg by mouth once daily Atorvastatin 10 mg tablet Discontinued 5 mg PO DAILY May 19, 2023 1:00am July 21, 2023 9:55am Start: 05-19-2023 End: 07-21-2023 take 5 mg by mouth once daily Atorvastatin Discontinue d 5 MG PO DAILY May 19, 2023 1:00am July 21, 2023 9:55am docusate sodium 100 mg oral tablet (17 sources) Start: 07-31-2021 End: 08-27-2021 take 1 tablet by mouth twice daily as needed for constipation Docusate Sodium 100 mg tablet Discontinued 100 mg PO TWICE A DAY as needed for constipation 60 July 31, 2021 1:00am August 27, 2021 8:37am Estriol (3 sources) Start: 02-01-2024 End: 03-07-2024 Estriol (Bulk) 100 % powder Discontinued 1 NMA MC TWICE A WEEK February 01, 2024 12:00am March 07, 2024 10:28am Fluad Quad (65yr up)(PF) 60 mcg (15 mcg x 4)/0.5mL IM syringe (flu vac (3 sources) Start: 03-24-2021 End: 03-24-2021 Fluad Quad (65yr up)(PF) 60 mcg (15 mcg x 4)/0.5mL IM syringe (flu vac Discontinued 60 MCG IM ONCE 0.5 March 24, 2021 11:48am March 24, 2021 12:10pm folic tabs (18 sources) Start: 02-17-2023 End: 07-21-2023 take 2 tablets by mouth once daily folic tabs Discontinued 2 mg PO DAILY February 17, 2023 9:08am July 21, 2023 9:56am 2 tabs daily 1mg tabs Start: 02-17-2023 End: 07-21-2023 take 2 tablets by mouth once daily folic tabs Discontinued 2 MG PO DAILY February 17, 2023 9:08am July 21, 2023 9:56am 2 tabs daily 1mg tabs Start: 02-17-2023 End: 07-21-2023 take 2 tablets by mouth once daily folic tabs Discontinued 2 MG PO DAILY February 17, 2023 8:08am July 21, 2023 8:56am 2 tabs daily 1mg tabs Start: 02-17-2023 take 2 tablets by mo uth once daily folic tabs Active 2 MG PO DAILY February 17, 2023 8:08am 2 tabs daily 1mg tabs Start: 02-17-2023 take 2 tablets by mo uth once daily folic tabs Active 2 MG PO DAILY February 17, 2023 9:08am 2 tabs daily 1mg tabs Start: 01-31-2023 End: 02-17-2023 take 2 tablets by mouth once daily folic tabs Discontinued PO January 30, 2023 11:00pm February 17, 2023 8:09am 2 tabs daily Start: 01-31-2023 End: 02-17-2023 take 2 tablets by mouth once daily folic tabs Discontinued PO January 31, 2023 12:00am February 17, 2023 9:09am 2 tabs daily hydroxychloroquine sulfate 200 mg oral tablet (17 sources) Antimalarial, Antirheumatic Agent Start: 06-19-2020 End: 01-31-2023 take 1 tablet by mouth once daily Hydroxychloroquine 200 mg tablet Discontinued 200 mg PO DAILY June 19, 2020 1:00am January 31, 2023 8:06am lisinopril 20 mg oral tablet (20 sources) Angiotensin Converting Enzyme Inhibitor Start: 07-20-2022 End: 03-07-2024 take 1 tablet by mouth at bedtime Lisinopril 20 mg tablet Discontinued 20 mg PO AT BEDTIME July 21, 2023 10:41am March 07, 2024 11:00am Start: 12-13-2018 End: 07-20-2022 take 1 tablet by mouth at bedtime Lisinopril 10 mg tablet Discontinued 10 mg PO AT BEDTIME February 04, 2022 11:53am July 20, 2022 12:21pm metroNIDAZOLE 0.01 mg/mg topical gel (15 sources) Nitroimidazole Antimicrobial Start: 09-11-2021 End: 07-20-2022 Metronidazole 1 % gel Discontinued NMA TOPICAL September 11, 2021 12:00am July 20, 2022 11:39am Start: 09-11-2021 End: 07-20-2022 Metronidazole Discontinued G TOPICAL September 11, 2021 12:00am July 20, 2022 11:39am pravastatin sodium 40 mg oral tablet (20 sources) HMG-CoA Reductase Inhibitor Start: 07-20-2022 End: 02-17-2023 take 1 tablet by mouth once daily Pravastatin 40 mg tablet Discontinued 40 mg PO DAILY July 20, 2022 12:20pm February 17, 2023 9:09am Start: 06-19-2020 End: 07-20-2022 take 1 tablet by mouth once daily Pravastatin 80 mg tablet Discontinued 80 mg PO DAILY August 15, 2020 9:17am July 16, 2021 10:24am Start: 10-27-2017 End: 06-19-2020 take 1 tablet by mouth at bedtime Pravastatin 40 MG tablet Discontinued 40 mg PO AT BEDTIME October 27, 2017 12:00am June 19, 2020 10:33am Vit C,L-Hc-Dolav-Lutein-Zeax an (14 sources) Start: 12-26-2017 End: 06-19-2020 Vit C,C-Eo-Uwycx-Lutein-Zeax an Discontinued 1 EACH PO DAILY December 26, 2017 1:22pm June 19, 2020 10:34am Start: 12-26-2017 End: 06-19-2020 Vit C,Z-Dc-Skgjy-Lutein-Zeax an Discontinued 1 EACH PO DAILY December 25, 2017 11:00pm June 19, 2020 9:34am Start: 12-26-2017 End: 06-19-2020 Vit C,F-Nb-Dogsp-Lutein-Zeax an Discontinued 1 EACH PO DAILY December 26, 2017 12:00am June 19, 2020 10:34am Vit C,A-Fx-Lkbzx-Lutein-Zeax an 1 EACH capsule (3 sources) Start: 12-26-2017 End: 06-19-2020 take 1 capsule by mouth once daily Vit C,M-Dn-Pwzdf-Lutein-Zeaxan 1 EACH capsule Discontinued 1 NMA PO DAILY December 26, 2017 12:00am June 19, 2020 10:34am Problems Active Problems Problem Classification Problem Date Documented Da te Episodic/Chronic Abdominal pain (18 sources) Flank pain; Translations: [Unspecified abdominal pain] Episodic Administrative/social admission (14 sources) Follow-up status; Translations: [Person consulting for explanation of examination or test findings] 02-17-2023 Episodic Calculus of urinary tract (17 sources) Kidney stone; Translations: [Calculus of kidney] 07-15-2022 Episodic Cardiac dysrhythmias (18 sources) Atrial premature complex ; Translations: [Atrial premature depolarization] Onset: 4 08-21-2020 Chronic Cardiac dysrhythmias (20 sources) Palpitations; Translations: [Palpitations] 06-14-2020 Episodic Diabetes mellitus without complication (1 source) Hyperglycemia, unspecified; Translations: [Hyperglycemia, unspecified] Onset: 5 Episodic Disorders of lipid metabolism (20 sources) Hyperlipidemia; Translations: [Hyperlipidemia, unspecified] Onset: 4 Chronic Diverticulosis and diverticulitis (18 sources) Diverticulosis of colon; Translations: [Diverticulosis of large intestine without perforation or abscess without bleeding] Onset: 4 08-21-2020 Chronic Essential hypertension (20 sources) Essential hypertension; Translations: [Essential (primary) hypertension] Onset: 4 Chronic Genitourinary symptoms and ill-defined conditions (20 sources) Blood in urine; Translations: [Hematuria, unspecified] Episodic Mycoses (20 sources) Onychomycosis; Translations: [Tinea unguium] Episodic Nutritional deficiencies (20 sources) Vitamin D deficiency; Translations: [Vitamin D deficiency, unspecified] Onset: 5 Chronic Other connective tissue disease (5 sources) Cramp in lower limb; Translations: [Sleep related leg cramps] 08-03-2023 Chronic Other connective tissue disease (2 sources) Sleep related leg cramps; Translations: [Sleep related leg cramps] 08-03-2023 Chronic Other connective tissue disease (17 sources) Myalgia caused by statin; Translations: [Myalgia, unspecified site] 08-21-2020 Episodic Other connective tissue disease (6 sources) Tendinitis of extensor tendon of left hand; Translations: [Other enthesopathies, not elsewhere classified] 08-23-2024 Episodic Other connective tissue disease (1 source) Other enthesopathies, not elsewhere classified; Translations: [Other enthesopathies, not elsewhere classified] Onset: 5 Episodic Other gastrointestinal disorders (9 sources) Stool DNA-based colorectal cancer screening positive; Translations: [Other fecal abnormalities] 02-24-2023 Episodic Other gastrointestinal disorders (3 sources) Other fecal abnormalities; Translations: [Abnormal feces] 02-24-2023 Episodic Other nervous system disorders (17 sources) Carpal tunnel syndrome; Translations: [Carpal tunnel syndrome, unspecified upper limb] 08-21-2020 Chronic Other screening for suspected conditions (not mental disorders or infectious disease) (20 sources) Electrocardiogram abnormal; Translations: [Abnormal electrocardiogram [ECG] [EKG]] Onset: 5 12-11-2018 Episodic Comment on above: Short [place] Other skin disorders (12 sources) Lesion of skin of nose; Translations: [Disorder of the skin and subcutaneous tissue, unspecified] 01-31-2023 Episodic Other skin disorders (4 sources) Disorder of the skin and subcutaneous tissue, unspecified; Translations: [Unspecified disorder of skin and subcutaneous tissue] Onset: 5 01-31-2023 Episodic Residual codes; unclassified (1 source) Acquired absence of both cervix and uterus; Translations: [Acquired absence of both cervix and uterus] Episodic Rheumatoid arthritis and related disease (20 sources) Inflammatory polyarthropathy; Translations: [Inflammatory polyarthropathy] Onset: 5 Chronic Past or Other Problems Problem Classification Problem Date Documented Date Episodic/Chronic E Codes: Adverse effects of medical drugs (1 source) Adverse effect of antihyperlipidemic and antiarteriosclerotic drugs, initial encounter; Translations: [Adverse effect of antihyperlipidemic and antiarteriosclerotic drugs, initial encounter] Onset: 4 Episodic Nonspecific chest pain (5 sources) Chest pain; Translations: [Chest pain, unspecified] Onset: 4 03-07-2024 Episodic Other connective tissue disease (1 source) Myalgia, unspecified site; Translations: [Myalgia, unspecified site] Onset: 4 Episodic Results Test Name Value Interpretation Reference Range Facility Absolute lymphocyte countOrd ered By: Morelia Higgins on 10-12-2024 Lymphocytes Auto (Unsp spec) [#/Vol] 1.38 10*3/uL 0.83-4.51 [facility] Absolute neutrophil countOrd ered By: Morelia Higgins on 10-12-2024 Neutrophils (Bld) [#/Vol] 6.2 10*3/uL 2.0-7.7 [facility] Anion gap in Serum or Plasma Ordered By: Morelia Higgins on 10-12-2024 Anion gap [Moles/Vol] 10 mmol/L 5-15 [facility] Automated blood erythrocyte countOrdered By: Moreliasusana Higgins on 10-12-2024 RBC (Bld) [#/Vol] 3.79 10*6/uL Low 4.2-5.4 [facility] Comment on above: Performed By: #### L 100.0100, L501.6710, L500.4050, L101.9900 #### [facility] [address] [place], [place], [id number] Automated blood hematocrit ( percentage)Ordered By: Morelia Higgins on 10-12-2024 Hematocrit (Bld) [Volume fraction] 35.2 % Low 37-47 [facility] Comment on above: Performed By: #### L 100.0100, L501.6710, L500.4050, L101.9900 #### [facility] [address]. [place], [place], [id number] Automated lymphocyte count a s percentage of total leukocytesOrdered By: Morelia Higgins on 10-12-2024 Lymphocytes/100 WBC Auto (Unsp spec) 16.1 % Low 19-41 [facility] BUN/creatinine ratioOrdered By: Morelia Higgins on 10-12-2024 Urea nitrogen/Creatinine [Mass ratio] 21.2 mg/mg High 10-20 [facility] Basophil percentageOrdered B y: Morelia Higgins on 10-12-2024 Basophils/100 WBC (Bld) 1.2 % High 0-1 [facility] Comment on above: Performed By: #### L 100.0100, L501.6710, [id number], [id number] #### [facility] [address] [place], [address] Bilirubin, totalOrdered By: Morelia Higgins on 10-12-2024 Bilirubin [Mass/Vol] 0.88 mg/dL 0.00-1.[address] [facility] CBC W/Diff, Automatedon Absolute Lymph 1.38 X10 3/uL Normal 0.83-4.51 [facility] Comment on above: Performed By: #### L 100.0100, L501.6710, [id number], [id number] #### [facility] [address] [place], [address] Absolute Neut 6.2 X10 3/uL Normal 2.0-7.7 [facility] Comment on above: Performed By: #### L 100.0100, L501.6710, L500.4050, [id number] #### [facility] [address] [place], [address] IG% 0.800 Normal 0.0-0.9 [facility] Comment on above: Result Comment: IG% - Immature Granulocytes (promyelocytes, myelocytes and metamyelocytes) > 1% indicates that a LEFT SHIFT is Present. Performed By: #### L 100.0100, L501.6710, L500.4050, L101.9900 #### [facility] [address] [place], [address] Lymphocytes/100 WBC (Bld) 16.1 % Low 19-41 [facility] Comment on above: Performed By: #### L 100.0100, [id number], [id number], [id number] #### [facility] [address] [place], [address] Nucleated RBC (Bld) [#/Vol] 0 10*3/uL Normal 0-5 [facility] Comment on above: Performed By: #### L 100.0100, [id number], [id number], [id number] #### [facility] [address] [place], [address] RDW SD 47.0 fl High 35.1-43.9 [facility] Comment on above: Performed By: #### L 100.0100, [id number], [id number], [id number] #### [facility] [address] [place], [address] CRPon 10-12-2024 C-REACTIVE PROT 3.36 mg/L High 0.0-3.0 [facility] Comment on above: Performed By: #### L 100.0100, [id number], [id number], [id number] #### [facility] [address] [place], [address] Carbon dioxide, total [Moles /volume] in Central venous bloodOrdered By: Morelia Higgins on 10-12-2024 CO2 [Moles/Vol] 24.4 mmol/L 21.0-32.0 [facility] Chloride assayOrdered By: Gerson Higgins on 10-12-2024 Chloride [Moles/Vol] 106 mmol/L 98-[address] [facility] Comprehensive Metabolic Prof ilon 10-12-2024 Albumin [Mass/Vol] 3.8 g/dL Normal 3.4-4.8 [facility] Comment on above: Performed By: #### L 100.0100, L501.6710, [id number], [id number] #### [facility] [address] [place], [address] Albumin/Globulin [Mass ratio] 1.5 {ratio} Normal 0.9-2.4 [facility] Comment on above: Performed By: #### L 100.0100, [id number], L500.4050, [id number] #### [facility] [address] [place], [address] ALK PHOS 83 U/L Normal 35-104 [facility] Comment on above: Performed By: #### L 100.0100, [id number], [id number], [id number] #### [facility] [address] [place], [address] ALT [Catalytic activity/Vol] 17 U/L Normal <=34 [facility] Comment on above: Performed By: #### L 100.0100, [id number], [id number], L101.9900 #### [facility] [address] [place], [address] AST [Catalytic activity/Vol] 18 U/L Normal <=31 [facility] Comment on above: Performed By: #### L 100.0100, [id number], [id number], [id number] #### [facility] [address] [place], [address] Bilirubin [Mass/Vol] 0.88 mg/dL Normal 0.00-1.[address] [facility] Comment on above: Performed By: #### L 100.0100, [id number], [id number], [id number] #### [facility] [address] [place], [address] BUN/CRE 21.2 RATIO High 10-20 [facility] Comment on above: Performed By: #### L 100.0100, [id number], [id number], [id number] #### [facility] [address] [place], [address] Calcium [Mass/Vol] 9.0 mg/dL Normal 7.6-11.0 [facility] Comment on above: Performed By: #### L 100.0100, [id number], [id number], [id number] #### [facility] [address] [place], [address] Chloride [Moles/Vol] 106 mmol/L Normal 98-[address] [facility] Comment on above: Performed By: #### L 100.0100, [id number], [id number], L101.9900 #### [facility] [address] [place], [address] CO2 [Moles/Vol] 24.4 mmol/L Normal 21.0-32.0 [facility] Comment on above: Performed By: #### L 100.0100, L501.6710, L500.4050, L101.9900 #### [facility] [address] [place], [address] Creatinine [Mass/Vol] 0.90 mg/dL Normal 0.70-1.20 [facility] Comment on above: Performed By: #### L 100.0100, L501.6710, L500.4050, L101.9900 #### [facility] [address] [place], [address] GAP 10 Normal 5-15 [facility] Comment on above: Performed By: #### L 100.0100, L501.6710, L500.4050, L101.9900 #### [facility] [address] [place], [address] GFR/1.73 sq M.predicted among non-blacks MDRD (S/P/Bld) [Vol rate/Area] 64 mL/min/{1.73_m2} Normal >60 [facility] Comment on above: Result Comment: mL/m in/1.73m2 CKD-EPI Creatinine Equation (2020) Performed By: #### L 100.0100, L501.6710, L500.4050, L101.9900 #### [facility] [address] [place], [address] Globulin (S) [Mass/Vol] 2.6 g/dL Normal 2.2-4.2 [facility] Comment on above: Performed By: #### L 100.0100, L501.6710, L500.4050, L101.9900 #### [facility] [address] [place], [address] Glucose [Mass/Vol] 99 mg/dL Normal 70-99 [facility] Comment on above: Performed By: #### L 100.0100, L501.6710, L500.4050, L101.9900 #### [facility] [address] [place], [address] Potassium [Moles/Vol] 4.0 mmol/L Normal 3.3-5.1 [facility] Comment on above: Performed By: #### L 100.0100, L501.6710, L500.4050, L101.9900 #### [facility] [address] [place], [address] Sodium [Moles/Vol] 140 mmol/L Normal 133-145 [facility] Comment on above: Performed By: #### L 100.0100, L501.6710, L500.4050, L101.9900 #### [facility] [address] [place], [address] T PROT 6.3 g/dL Normal 5.9-8.4 [facility] Comment on above: Performed By: #### L 100.0100, L501.6710, L500.4050, L101.9900 #### [facility] [address] [place], [address] Urea nitrogen [Mass/Vol] 19 mg/dL Normal 4-19 [facility] Comment on above: Performed By: #### L 100.0100, L501.6710, L500.4050, L101.9900 #### [facility] [address] [place], [address] Eosinophil percentageOrdered By: Morelia Higgins on 10-12-2024 Eosinophils/100 WBC (Bld) 2.2 % Normal 0-5 [facility] Comment on above: Performed By: #### L 100.0100, L501.6710, L500.4050, L101.9900 #### [facility] [address] [place], [address] Erythrocyte Sed Rateon 10-12 SED RATE 4 mm/hr Normal 0-30 [facility] Comment on above: Performed By: #### L 100.0100, L501.6710, L500.4050, L101.9900 #### [facility] [address] [place], [address] Erythrocyte distribution wid th ratioOrdered By: Morelia Higgins on 10-12-2024 Erythrocyte distribution width (RBC) [Ratio] 14.0 % Normal 11.6-14.6 [facility] Comment on above: Performed By: #### L 100.0100, L501.6710, L500.4050, L101.9900 #### [facility] [address] [place], [address] Erythrocyte distribution wid th standard deviationOrdered By: Morelia Higgins on 10-12-2024 Erythrocyte distribution width (RBC) [Ratio] 47.0 fl High 35.1-43.9 [facility] Erythrocyte sedimentation ra teOrdered By: Morelia Higgins on 10-12-2024 ESR (Bld) [Velocity] 4 mm/h 0-[address] [facility] Glomerular filtration rate ( GFR) estimation/1.73 sq m using serum, plasma, or whole bOrdered By: Morelia Higgins on 10-12-2024 GFR/1.73 sq M.predicted among non-blacks MDRD (S/P/Bld) [Vol rate/Area] 64 mL/min/{1.73_m2} >60 [facility] Comment on above: mL/min/1.73m2 CKD-EP I Creatinine Equation (2020) Hemoglobin measurementOrdere d By: Morelia Higgins on 10-12-2024 Hemoglobin (Bld) [Mass/Vol] 11.7 g/dL Low 12.0-15.0 [facility] Comment on above: Performed By: #### L 100.0100, L501.6710, L500.4050, L101.9900 #### [facility] [address] [place], [address] Immature granulocytes/100 WB C Auto (Bld)Ordered By: Morelia Higgins on 10-12-2024 Immature granulocytes/100 WBC (Bld) 0.800 % 0.0-0.9 [facility] Comment on above: IG% - Immature Granu locytes (promyelocytes, myelocytes and metamyelocytes) > 1% indicates that a LEFT SHIFT is Present. Laboratory - Chemistry and C hemistry - challengeOrdered By: Morelia Higgins on 10-12-2024 AST [Catalytic activity/Vol] 18 U/L <32 [facility] MCV (mean corpuscular volume ) determinationOrdered By: Morelia Higgins on 10-12-2024 MCV (RBC) [Entitic vol] 92.9 fL Normal 81-99 [facility] Comment on above: Performed By: #### L 100.0100, L501.6710, L500.4050, L101.9900 #### [facility] [address] [place], [address] Mean corpuscular hemoglobin (MCH) determinationOrdered By: Morelia Higgins on 10-12-2024 MCH (RBC) [Entitic mass] 30.9 pg Normal 27.0-32.0 [facility] Comment on above: Performed By: #### L 100.0100, L501.6710, L500.4050, L101.9900 #### [facility] [address] [place], [address] Mean corpuscular hemoglobin concentration (MCHC) determinationOrdered By: Morelia Higgins on 10-12-2024 MCHC (RBC) [Mass/Vol] 33.2 g/dL Normal 32-36 [facility] Comment on above: Performed By: #### L 100.0100, L501.6710, L500.4050, L101.9900 #### [facility] [address] [place], [place], [id number] Mean platelet volume determi nationOrdered By: Morelia Higgins on 10-12-2024 Platelet mean volume (Bld) [Entitic vol] 10.2 fL Normal 6.2-12.0 [facility] Comment on above: Performed By: #### L 100.0100, L501.6710, L500.4050, L101.9900 #### [facility] [address] [place], [address] Monocyte percentageOrdered B y: Morelia Higgins on 10-12-2024 Monocytes/100 WBC (Bld) 7.0 % Normal 0-10 [facility] Comment on above: Performed By: #### L 100.0100, L501.6710, L500.4050, L101.9900 #### [facility] [address] [place], [address] Neutrophil percentageOrdered By: Morelia Higgins on 10-12-2024 Neutrophils/100 WBC (Bld) 72.7 % High 47-70 [facility] Comment on above: Performed By: #### L 100.0100, L501.6710, L500.4050, L101.9900 #### [facility] [address] [place], [address] Nucleated red blood cell per centageOrdered By: Morelia Higgins on 10-12-2024 Nucleated RBC/100 WBC (Bld) [Ratio] 0 % 0-5 [facility] Platelet countOrdered By: Gerson Higgins on 10-12-2024 Platelets (Bld) [#/Vol] 338 10*3/uL Normal 150-450 [facility] Comment on above: Performed By: #### L 100.0100, L501.6710, L500.4050, L101.9900 #### [facility] [address] [place], [address] Potassium measurement (mass/ volume)Ordered By: Morelia Higgins on 10-12-2024 Potassium (Unsp spec) [Mass/Vol] 4.0 mmol/L 3.3-5.1 [facility] Serum creatinine measurement (mass/volume)Ordered By: Morelia Higgins on 10-12-2024 Creatinine [Mass/Vol] 0.90 mg/dL 0.70-1.20 [facility] Serum globulin measurementOr dered By: Morelia Higgins on 10-12-2024 Globulin (S) [Mass/Vol] 2.6 g/dL 2.2-4.2 [facility] Serum glucose measurement (m ass/volume)Ordered By: Morelia Higgins on 10-12-2024 Glucose [Mass/Vol] 99 mg/dL 70-99 [facility] Serum or plasma C reactive p rotein measurement (mass/volume)Ordered By: Morelia Higgins on 10-12-2024 CRP [Mass/Vol] 3.36 mg/L High 0.0-3.0 [facility] Serum or plasma alanine kwok otransferase (ALT) measurementOrdered By: Morelia Higgins on 10-12-2024 ALT [Catalytic activity/Vol] 17 U/L <35 [facility] Serum or plasma albumin josué urement (mass/volume)Ordered By: Morelia Higgins on 10-12-2024 Albumin [Mass/Vol] 3.8 g/dL 3.4-4.8 [facility] Serum or plasma albumin/glob ulin mass ratioOrdered By: Morelia Higgins on 10-12-2024 Albumin/Globulin [Mass ratio] 1.5 {ratio} 0.9-2.4 [facility] Serum or plasma alkaline mike sphatase measurementOrdered By: Morelia Higgins on 10-12-2024 ALP [Catalytic activity/Vol] 83 U/L 35-104 [facility] Serum or plasma calcium josué urement (mass/volume)Ordered By: Morelia Higgins on 10-12-2024 Calcium [Mass/Vol] 9.0 mg/dL 7.6-11.0 [facility] Serum or plasma urea nitroge n measurement (mass/volume)Ordered By: Morelia Higgins on 10-12-2024 Urea nitrogen [Mass/Vol] 19 mg/dL 4-19 [facility] Sodium levelOrdered By: Glenda Higgins on 10-12-2024 Sodium [Moles/Vol] 140 mmol/L 133-145 [facility] Total proteinOrdered By: Niels Higgins on 10-12-2024 Protein [Mass/Vol] 6.3 g/dL 5.9-8.4 [facility] White blood cell (WBC) count Ordered By: Morelia Higgins on 10-12-2024 WBC (Bld) [#/Vol] 8.6 10*3/uL Normal 4.4-11.0 [facility] Comment on above: Performed By: #### L 100.0100, L501.6710, L500.4050, L101.9900 #### [facility] [address] [place], [place], [address] Urgent Care Visit Reporton 0 10-08-2024 Urgent Care Visit Report [facility] [address], [address] [place], [place] [address] OFFICE VISIT Date of Service: 10/08/24 MR#: [id number] Acct: [id number] Name: PHANI DOMÍNGUEZ Rep #: [id number] : 1940 Provider: GERSON Wright Age/Sex: 83/F Location: [facility] [place] Status: Signed Intake Vital Signs 09/06/24 09:32 10/08/24 13:30 Height 5 ft 2 in Weight: 120 lb BMI 21.9 BP 117/66 124/66 H Blood Pressure Location Lt brachial Position Sitting Sitting Respiration 16 Pulse 65 77 Pulse Source Monitor Temp 97.8 F Temp Source Oral Pulse Oximetry (%) 98 Oxygen Delivery Method room air Intake Visit Reasons: TICK BITE ON BACK OF HEAD Accompanied by: Self Allergies hydroxychloroquine Allergy (Severe, Verified 10/08/24 13:30) Itching bee venom protein (honey bee) Allergy (Mild, Verified 10/08/24 13:30) redness ibuprofen Allergy (Mild, Verified 10/08/24 13:30) rash Penicillins Allergy (Mild, Verified 10/08/24 13:30) Rash rosuvastatin (From Crestor) Allergy (Mild, Verified 10/08/24 13:30) muscle pain pravastatin Adverse Reaction (Intermediate, Verified 10/08/24 13:30) Myalgias/leg cramps. Medications ???Medication ???Instructions ???Recorded ???Confirmed ???Type aspirin 81 mg tablet,delayed 81 mg PO DAILY@0800 10/27/1710/08 History release cholecalciferol (vitamin D3) 25 1,000 unit PO BID 07/21/23 5 History mcg (1,000 unit) tablet lisinopril 20 mg tablet 20 mg PO QHS #90 tabs 03/07/24 Rx estradiol 0.01% (0.1 mg/gram) 1 g vaginal 2XW 08/06/24 10/08/24 History vaginal cream folic acid 1 mg tablet 2 mg PO QDAY 08/06/24 10/08/24 His tory red yeast rice 600 mg capsule 600 mg PO QDAY 08/06/24 10/08/24 H istory atenolol 50 mg tablet 50 mg PO QHS #90 TABLETS 09/06/24 10/08/24 Rx methotrexate sodium 2.5 mg tablet 12.5 mg PO QWEEK 09/06/24 5 History doxycycline monohydrate 100 mg 200 mg (2 x 100 mg) PO BID #2 caps 10/08/24 10/08/24 Rx capsule Have you fallen in the past year?: No Nurse's Note: Patient was in [place] and on Sat she noticed a tick in the back of her head. Patient states that its bad up their and her daughter in law got it out she wasn't sure if she got the head out. Patient son has had a history of tick bites and she took some of his 4 year old Doxycycline she took 2 of the pills. [facility] Medical History Tendinitis of extensor tendon of left hand Eczema Cancer History of steroid therapy Arthritis Rheumatoid arthritis History of kidney stones History of Holter monitoring Leg cramps Neuropathy Dysuria Hematuria Flank pain Onychomycosis Uterovaginal prolapse, incomplete Preop cardiovascular exam Wears glasses Post-menopausal High cholesterol Injury of head and neck Colitis Non-smoker Normal stress echocardiogram History of echocardiogram Hypertension Cardiology follow-up encounter Vitamin D deficiency Carpal tunnel syndrome Inflammatory polyarthropathy Myalgia due to statin Premature atrial complexes Abnormal EKG Hyperlipidemia Kidney stone Essential hypertension Diverticulosis of colon Surgical History Hx of basal cell carcinoma excision History of D C History of cataract surgery History of hysterectomy History of hysteroscopy Hx of cystoscopy History of lithotripsy History of tonsillectomy and adenoidectomy Family History Father CAD (coronary artery disease) History of coronary artery bypass surgery Alcoholism Sister Anemia Blood clot in vein Diabetes Kidney disease Liver disease CVA (cerebral vascular accident) Mother Asthma Arthritis Bowel disease Osteoporosis Social History Smoking Status: Never smoker alcohol intake: never details: rare substance use type: does not use caffeine: No what type of physical activity do you participate in: walking frequency: 3-4 times per week HPI HPI Details: PHANI DOMÍNGUEZ, is a 83 F who presents to the office today for tick bite to the right occipital scalp first appreciated 2 days ago while hiking with family in [place] and daughter removed the tick herself. Trace tenderness locally without erythema migrans and is requesting a prophylactic antibiotic. No complaints of fever, chills, headache, myalgias, joint pain, neck pain. No [id number] products taken to assist. Otherwise asymptomatic without complaints. ROS Const Constitutional: Positive for other (As above) Exam Const General: cooperative, healthy appearing and no acute distress Nutritional Appearance: average body habitus (more content not included)... Normal [facility] Hemoglobin A1con 03-28-2025 HbA1c (Bld) [Mass fraction] 6.0 % Normal <=5.6 [facility] Comment on above: Performed By: #### L 501.9520, L506.1001, L501.9985 #### [facility] [address] [place], [address] Hemoglobin A1c percentageOrd ered By: Cristal Astudillo on 09-07-2024 HbA1c (Bld) [Mass fraction] 6.0 % >5.7 [facility] L506.1001on 09-07-2024 Vitamin D 25-OH 46.9 ng/mL Normal 30-100 [facility] Comment on above: Result Comment: Ysabel min D Status Deficiency: <20 ng/mL (50nmol/L) Insufficiency: 20-30 ng/mL (50-75 nmol/L) Sufficiency: 30-100 ng/mL (75-250 nmol/L) Toxicity: >100 ng/mL (>250 nmol/L) Performed By: #### L 501.9520, L506.1001, L501.9985 #### [facility] [address] [place], [address] TSH DL <= 0.005 mIU/L QnOrde red By: Cristal Astudillo on 09-07-2024 Thyroid Stimulating Hormone (TSH) 2.160 uIU/mL 0.300-4.200 [facility] TSH Qn 2.160 uIU/mL 0.300-4.200 [facility] Thyroid Stim Hormone (TSH)on 09-07-2024 TSH 2.160 uIU/mL Normal 0.300-4.200 [facility] Comment on above: Performed By: #### L 501.9520, L506.1001, L501.9985 #### [facility] [address] [place], [address] Vitamin D, 25-hydroxyOrdered By: Cristal Astudillo on 09-07-2024 Vitamin D 25-Hydroxy 46.9 ng/mL 30-[address] [facility] Comment on above: Vitamin D StatusDefi ciency: <20 ng/mL (50nmol/L)Insufficiency: 20-30 ng/mL (50-75 nmol/L)Sufficiency: 30-100 ng/mL (75-250 nmol/L)Toxicity: >100 ng/mL (>250 nmol/L) Cardiology Visit Reporton Cardiology Visit Report [facility] [address] [place] [address] OFFICE VISIT Date of Service: 09/06/24 MR#: [id number] Acct: [id number] Name: PHANI DOMÍNGUEZ Rep #: [id number] : 1940 Provider: Dr. Marcial Moe MD Age/Sex: 83/F [place] [facility] [place] Signed HPI HPI History of Present Illness Surgical H P: No Details: Ms. Domínguez is a pleasant 83-year-old lady with a history of hypertension, hyperlipidemia. She returns for follow-up visit. As part of her work-up for palpitations, she had an echocardiogram with demonstrated preserved ejection fraction of 65%, stage I diastolic dysfunction, stress echo was also noted to be normal. Holter monitor demonstrated occasional premature atrial complex. She has had significant myalgias on the statins. She follows her blood pressure closely at home. Your member that she underwent a stress test in March 2024 where she exercised to a moderate workload without any evidence of ischemia. She denies arm, jaw, or neck discomfort. She states occasional palpitations that describes as fast. She denies bilateral lower extremity edema. She denies claudication. She denies shortness of breath with activity, shortness of breath at rest, orthopnea, or PND. She denies chronic cough. She denies significant, sudden weight gain. She denies lightheadedness, dizziness, near-syncope, or syncope. She denies blood in urine, blood in stool, or epistaxis. He denies fever with chills. She denies myalgia. She denies fatigue. Her exercise level has remained stable. Intake Vital Signs 07/21/23 08:49 08/23/24 08:04 09/06/24 09:32 Height 5 ft 2 in 5 ft 2 in 5 ft 2 in Weight: 120 lb BMI 21.9 BP 117/66 Blood Pressure Location Lt brachial Position Sitting Respiration 16 Pulse 65 Pulse Source Monitor Intake Visit Reasons: 1 Y FU Head Charrer Required: No Accompanied by: Self Is patient in pain?: No Allergies hydroxychloroquine Allergy (Severe, Verified 09/06/24 09:34) Itching bee venom protein (honey bee) Allergy (Mild, Verified 09/06/24 09:34) redness ibuprofen Allergy (Mild, Verified 09/06/24 09:34) rash Penicillins Allergy (Mild, Verified 09/06/24 09:34) Rash rosuvastatin (From Crestor) Allergy (Mild, Verified 09/06/24 09:34) muscle pain pravastatin Adverse Reaction (Intermediate, Verified 09/06/24 09:34) Myalgias/leg cramps. Medications ???Medication ???Instructions ???Recorded ???Confirmed ???Type aspirin 81 mg tablet,delayed 81 mg PO DAILY@0800 10/27/1709/06 History release cholecalciferol (vitamin D3) 25 1,000 unit PO BID 07/21/23 5 History mcg (1,000 unit) tablet lisinopril 20 mg tablet 20 mg PO QHS #90 tabs 03/07/24 Rx estradiol 0.01% (0.1 mg/gram) 1 g vaginal 2XW 08/06/24 09/06/24 History vaginal cream folic acid 1 mg tablet 2 mg PO QDAY 08/06/24 09/06/24 His tory red yeast rice 600 mg capsule 600 mg PO QDAY 08/06/24 09/06/24 H istory atenolol 50 mg tablet 50 mg PO QHS #90 TABLETS 09/06/24 09/06/24 Rx methotrexate sodium 2.5 mg tablet 12.5 mg PO QWEEK 09/06/24 5 History Have you fallen in the past year?: No PFSH Medical History Tendinitis of extensor tendon of left hand Eczema Cancer History of steroid therapy Arthritis Rheumatoid arthritis History of kidney stones History of Holter monitoring Leg cramps Neuropathy Dysuria Hematuria Flank pain Onychomycosis Uterovaginal prolapse, incomplete Preop cardiovascular exam Wears glasses Post-menopausal High cholesterol Injury of head and neck Colitis Non-smoker Normal stress echocardiogram History of echocardiogram Hypertension Cardiology follow-up encounter Vitamin D deficiency Carpal tunnel syndrome Inflammatory polyarthropathy Myalgia due to statin Premature atrial complexes Abnormal EKG Hyperlipidemia Kidney stone Essential hypertension Diverticulosis of colon Surgical History Hx of basal cell carcinoma excision History of D C History of cataract surgery History of hysterectomy History of hysteroscopy Hx of cystoscopy History of lithotripsy History of tonsillectomy and adenoidectomy Family History Father CAD (coronary artery disease) History of coronary artery bypass surgery Alcoholism Sister Anemia Blood clot in vein Diabetes Kidney disease Liver disease CVA (cerebral vascular accident) Mother Asthma Arthritis Bowel disease Osteoporosis Social History Smoking Status: Never smoker alcohol intake: never details: rare substance use type: does not us (more content not included)... Normal [facility] MR/BMS[facility] 08-23-2024 MR/BMS.[facility] [address] [place] [address] OFFICE VISIT Date of Service: 08/23/24 MR#: [id number] Acct: [id number] Name: PHANI DOMÍNGUEZ Rep #: [id number] : 1940 Provider: Dr. Cristal milian MD Age/Sex: 83/F Location: [facility] [place] Status: Signed Intake Vital Signs 08/06/24 07:59 08/22/24 09:25 08/23/24 08:04 Height 5 ft 2 in 5 ft 2 in 5 ft 2 in Weight: 121 lb 6 oz 121 lb 4 oz BMI 22.1 22.1 BP 134/76 H 119/70 Blood Pressure Location Lt brachial Rt brachial Position Sitting Sitting Respiration 16 16 Pulse 71 73 Pulse Source Monitor Monitor Temp 98.0 F 98.0 F Temp Source Temporal Temporal Pulse Oximetry (%) 98 98 Oxygen Delivery Method room air room air Intake Visit Reasons: LT Hand Edema Chief Complaint: Lt hand edema Head Charrer Required: No Accompanied by: Self Is patient in pain?: No Allergies hydroxychloroquine Allergy (Severe, Verified 08/23/24 07:57) Itching bee venom protein (honey bee) Allergy (Mild, Verified 08/23/24 07:57) redness ibuprofen Allergy (Mild, Verified 08/23/24 07:57) rash Penicillins Allergy (Mild, Verified 08/23/24 07:57) Rash rosuvastatin (From Crestor) Allergy (Mild, Verified 08/23/24 07:57) muscle pain pravastatin Adverse Reaction (Intermediate, Verified 08/23/24 07:57) Myalgias/leg cramps. Medications ???Medication ???Instructions ???Recorded ???Confirmed ???Type aspirin 81 mg tablet,delayed 81 mg PO DAILY@0800 10/27/1708/23 History release cholecalciferol (vitamin D3) 25 1,000 unit PO BID 07/21/23 5 History mcg (1,000 unit) tablet atenolol 50 mg tablet 50 mg PO QHS #90 TABLETS 01/18/24 08/23/24 Rx lisinopril 20 mg tablet 20 mg PO QHS #90 tabs 03/07/24 Rx estradiol 0.01% (0.1 mg/gram) 1 g vaginal 2XW 08/06/24 08/23/24 History vaginal cream folic acid 1 mg tablet 2 mg PO QDAY 08/06/24 08/23/24 His tory methotrexate sodium 2.5 mg tablet mg PO 08/06/24 08/23/24 History red yeast rice 600 mg capsule 600 mg PO QDAY 08/06/24 08/23/24 H istory Have you fallen in the past year?: No PFSH Medical History (Updated 08/23/24 @ 08:[address] Cristal Astudillo MD) Tendinitis of extensor tendon of left hand Eczema Cancer History of steroid therapy Arthritis Rheumatoid arthritis History of kidney stones History of Holter monitoring Leg cramps Neuropathy Dysuria Hematuria Flank pain Onychomycosis Uterovaginal prolapse, incomplete Preop cardiovascular exam Wears glasses Post-menopausal High cholesterol Injury of head and neck Colitis Non-smoker Normal stress echocardiogram History of echocardiogram Hypertension Cardiology follow-up encounter Vitamin D deficiency Carpal tunnel syndrome Inflammatory polyarthropathy Myalgia due to statin Premature atrial complexes Abnormal EKG Hyperlipidemia Kidney stone Essential hypertension Diverticulosis of colon Surgical History Hx of basal cell carcinoma excision History of D C History of cataract surgery History of hysterectomy History of hysteroscopy Hx of cystoscopy History of lithotripsy History of tonsillectomy and adenoidectomy Family History Father CAD (coronary artery disease) History of coronary artery bypass surgery Alcoholism Sister Anemia Blood clot in vein Diabetes Kidney disease Liver disease CVA (cerebral vascular accident) Mother Asthma Arthritis Bowel disease Osteoporosis Social History Smoking Status: Never smoker alcohol intake: never details: rare substance use type: does not use caffeine: No what type of physical activity do you participate in: walking frequency: 3-4 times per week HPI HPI Chief Complaint: Lt hand edema Details: PHANI DOMÍNGUEZ, is a 83 F who presents to the office today for an acute care follow-up visit. 83-year-old female. She has left wrist pain, discomfort, across the dorsum of the left hand, some swelling. She states that several days ago, she was out doing yard work for the spring time. Picking up limbs and branches etc. That was on Tuesday. That included things like raking and again lifting, grabbing. She is right-hand dominant. However that evening, had discomfort to some degree in both wrists and hand but the left was much more bothersome with swelling. She did take a Tylenol and has used some IcyHot and iced it several times. Yesterday had a sense of "lack of strength" due to the discomfort that was present. As of this morning actually doing a little better in the left wrist and hand. The right is doing well. Otherwise no acute injury. She does wear wrist splints at night bec (more content not included)... Normal [facility] Breast imaging reportOrdered By: Ced Wallace on 08-16-2024 Study report [facility] [address] [place], [place] [id number] SCRN MAMM (CAD)W/IZABELLA BILAT MR#: [id number] Acct: [id number] Name: PHANI DOMÍNGUEZ Rep #: : [id number] F 83 From: Titus Wallace MD PCP: Dr. Cristal Astudillo MD Status: REG CLI Study:SCRN MAMM (CAD)W/IZABELLA BILAT Date of Exa m: 08/16/24 Exam# [id number] Ordering Dr: Cristal Astudillo MD PROCEDURE: SCRN MAMM (CAD)W/IZABELLA BILAT REASON FOR EXAM: F, Age 83 y/o, no family history. TECHNIQUE: Bilateral screening digital breast tomosynthesis with 2D and 3D images. Computeraided detection. COMPARISON: Prior exam(s) dating back to August 16, 2023.. FINDINGS: The breasts are heterogeneously dense which may obscure small masses. Stable small bilateral axillary lymph nodes. No suspicious masses, areas of developing architectural distortion, or suspicious calcifications. BI/SCRN MAMM (CAD)W/IZABELLA BILAT IMPRESSION: BI-RADS 2: BENIGN. RECOMMEND ANNUAL MAMMOGRAPHIC SCREENING. Follow-up code: Routine Follow-up The patient will be notified of the results by letter. Reading Location: [id number] CC: Dr. Cristal Astudillo MD ~ Supervisor Nurse: Signed [facility] SCRN MAMM (CAD)W/IZABELLA BILATo n 08-16-2024 SCRN MAMM (CAD)W/IZABELLA BILAT [facility] [address] [place] [id number] SCRN MAMM (CAD)W/IZABELLA BILAT MR#: [id number] Acct: [id number] Name: PHANI DOMÍNGUEZ Rep #: [id number] : 1940 F 83 From: Ced jefferson MD PCP: Dr. Cristal Astudillo MD Status: REG CLI Study: SCRN MAMM (CAD)W/IZABELLA BILAT Date of Exam: 12/05 Exam# [id number] Ordering Dr: Cristal Astudillo MD PROCEDURE: SCRN MAMM (CAD)W/IZABELLA BILAT REASON FOR EXAM: F, Age 83 y/o, no family history. TECHNIQUE: Bilateral screening digital breast tomosynthesis with 2D and 3D images. Computer aided detection. COMPARISON: Prior exam(s) dating back to August 16, 2023.. FINDINGS: The breasts are heterogeneously dense which may obscure small masses. Stable small bilateral axillary lymph nodes. No suspicious masses, areas of developing architectural distortion, or suspicious calcifications. BI/SCRN MAMM (CAD)W/IZABELLA BILAT IMPRESSION: BI-RADS 2: BENIGN. RECOMMEND ANNUAL MAMMOGRAPHIC SCREENING. Follow-up code: Routine Follow-up The patient will be notified of the results by letter. Reading Location: [facility] CC: Dr. Cristal Astudillo MD Supervisor Nurse: Signed Normal [facility] MR/BMS.Bon 08-06-2024 MR/BMS.IMB [facility] [address] [place] [address] OFFICE VISIT Date of Service: 08/06/24 MR#: [id number] Acct: [id number] Name: PHANI DOMÍNGUEZ Rep #: [id number] : 1940 Provider: Dr. Cristal milian MD Age/Sex: 83/F Location: [facility] Status: Signed Intake Vital Signs 03/07/24 10:35 08/06/24 07:59 Height 5 ft 2 in 5 ft 2 in Weight: 121 lb 6 oz BMI 22.1 BP 134/76 H Blood Pressure Location Lt brachial Position Sitting Respiration 16 Pulse 71 Pulse Source Monitor Temp 98.0 F Temp Source Temporal Pulse Oximetry (%) 98 Oxygen Delivery Method room air Intake Visit Reasons: Annual/Physical Chief Complaint: annual/physical Head Charrer Required: No Accompanied by: Self Is patient in pain?: No Allergies hydroxychloroquine Allergy (Severe, Verified 08/06/24 07:50) Itching bee venom protein (honey bee) Allergy (Mild, Verified 08/06/24 07:50) redness ibuprofen Allergy (Mild, Verified 08/06/24 07:50) rash Penicillins Allergy (Mild, Verified 08/06/24 07:50) Rash rosuvastatin (From Crestor) Allergy (Mild, Verified 08/06/24 07:50) muscle pain pravastatin Adverse Reaction (Intermediate, Verified 08/06/24 07:50) Myalgias/leg cramps. Medications ???Medication ???Instructions ???Recorded ???Confirmed ???Type aspirin 81 mg tablet,delayed 81 mg PO DAILY@0800 10/27/1708/06 History release cholecalciferol (vitamin D3) 25 1,000 unit PO BID 07/21/23 5 History mcg (1,000 unit) tablet atenolol 50 mg tablet 50 mg PO QHS #90 TABLETS 01/18/24 08/06/24 Rx lisinopril 20 mg tablet 20 mg PO QHS #90 tabs 03/07/24 Rx estradiol 0.01% (0.1 mg/gram) 1 g vaginal 2XW 08/06/24 08/06/24 History vaginal cream folic acid 1 mg tablet 2 mg PO QDAY 08/06/24 08/06/24 His tory methotrexate sodium 2.5 mg tablet mg PO 08/06/24 08/06/24 History red yeast rice 600 mg capsule 600 mg PO QDAY 08/06/24 08/06/24 H istory Have you fallen in the past year?: No PFSH Medical History (Updated 08/06/24 @ 07:58 by Aida Pringle RN) Eczema Cancer History of steroid therapy Arthritis Rheumatoid arthritis History of kidney stones History of Holter monitoring Leg cramps Neuropathy Dysuria Hematuria Flank pain Onychomycosis Uterovaginal prolapse, incomplete Preop cardiovascular exam Wears glasses Post-menopausal High cholesterol Injury of head and neck Colitis Non-smoker Normal stress echocardiogram History of echocardiogram Hypertension Cardiology follow-up encounter Vitamin D deficiency Carpal tunnel syndrome Inflammatory polyarthropathy Myalgia due to statin Premature atrial complexes Abnormal EKG Hyperlipidemia Kidney stone Essential hypertension Diverticulosis of colon Surgical History Hx of basal cell carcinoma excision History of D C History of cataract surgery History of hysterectomy History of hysteroscopy Hx of cystoscopy History of lithotripsy History of tonsillectomy and adenoidectomy Family History Father CAD (coronary artery disease) History of coronary artery bypass surgery Alcoholism Sister Anemia Blood clot in vein Diabetes Kidney disease Liver disease CVA (cerebral vascular accident) Mother Asthma Arthritis Bowel disease Osteoporosis Social History Smoking Status: Never smoker alcohol intake: never details: rare substance use type: does not use caffeine: No what type of physical activity do you participate in: walking frequency: 3-4 times per week HPI HPI Chief Complaint: annual/physical Details: PHANI DOMÍNGUEZ, is a 83 F who presents to the office today for 6-month follow-up. Patient is a pleasant 83-year-old female who has a history of essential hypertension, hyperlipidemia, and inflammatory polyarthropathy, not rheumatoid. She follows with cardiology and rheumatology. She is on atenolol 50 mg daily, lisinopril 20 mg daily added blood pressures have been stable. Takes daily baby aspirin. She is intolerant to statins. She has been using red yeast rice extract. We reviewed her recent labs. Her HDL did improve a bit since her prior labs, the LDL was down a little bit as well as the total cholesterol. She would stay on this for now. More recently, about 8 weeks ago or so, she is started on methotrexate once weekly per rheumatology. Her CRP was elevated at 8. She has rheumatoid negative. 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 Normal [facility] Absolute lymphocyte countOrd ered By: Morelia Higgins on 08-02-2024 Lymphocytes Auto (Unsp spec) [#/Vol] 1.22 10*3/uL 0.83-4.51 [facility] Absolute neutrophil countOrd ered By: Morelia Higgins on 08-02-2024 Neutrophils (Bld) [#/Vol] 5.8 10*3/uL 2.0-7.7 [facility] Albumin to globulin ratioOrd ered By: Morelia Higgins on 08-02-2024 Albumin/Globulin [Mass ratio] 0.9 {ratio} 0.9-2.4 [facility] Automated lymphocyte count a s percentage of total leukocytesOrdered By: Morelia Higgins on 08-02-2024 Lymphocytes/100 WBC Auto (Unsp spec) 15.8 % Low 19-41 [facility] Basophil percentageOrdered B y: Morelia Higgins on 08-02-2024 Basophils/100 WBC (Bld) 0.9 % 0-1 [facility] Bilirubin, totalOrdered By: Morelia Higgins on 08-02-2024 Bilirubin [Mass/Vol] 1.10 mg/dL High 0.20-1.[address] [facility] Comment on above: For patients on eltr ombopag therapy, use of Dimension [place] TBIL is not recommended. Blood urea nitrogen (BUN)/cr eatinine ratioOrdered By: Morelia Higgins on 08-02-2024 Urea nitrogen/Creatinine [Mass ratio] 23.7 mg/mg High 10-20 [facility] C-reactive protein measureme nt by high sensitivity methodOrdered By: Morelia Higgins on 08-02-2024 C-Reactive Protein Extended Range 3.22 mg/L High 0.0-3.0 [facility] Comment on above: C-Reactive Protein ( CRP) provides useful information for thediagnosis, therapy and monitoring of inflammatory processesand associated diseases. For the evaluation of Relative Riskfor Cardiovascular Disease, a High Sensitivity CRP (HSCRP)should be ordered. C-reactive protein measurement by high sensitivity method 3.22 mg/L High 0.0-3.0 [facility] Comment on above: C-Reactive Protein ( CRP) provides useful information for thediagnosis, therapy and monitoring of inflammatory processesand associated diseases. For the evaluation of Relative Riskfor Cardiovascular Disease, a High Sensitivity CRP (HSCRP)should be ordered. CBC W/Diff, Automatedon 07-15 Absolute Lymph 1.22 X10 3/uL Normal 0.83-4.51 [facility] Comment on above: Performed By: #### L 500.3400, L500.4100 #### [facility] [place], [address] Absolute Neut 5.8 X10 3/uL Normal 2.0-7.7 [facility] Comment on above: Performed By: #### L 500.3400, L500.4100 #### [facility] [address] [place], [address] Basophils/100 WBC (Bld) 0.9 % Normal 0-1 [facility] Comment on above: Performed By: #### L 500.3400, L500.4100 #### [facility] [address] [place], [address] Eosinophils/100 WBC (Bld) 1.3 % Normal 0-5 [facility] Comment on above: Performed By: #### L 500.3400, L500.4100 #### [facility] [address] [place], [address] Erythrocyte distribution width (RBC) [Ratio] 13.2 % Normal 11.6-14.6 [facility] Comment on above: Performed By: #### L 500.3400, L500.4100 #### [facility] [address] [place], [address] Hematocrit (Bld) [Volume fraction] 38.2 % Normal 37-47 [facility] Comment on above: Performed By: #### L 500.3400, L500.4100 #### [facility] [address] [place], [address] Hemoglobin (Bld) [Mass/Vol] 12.5 g/dL Normal 12.0-15.0 [facility] Comment on above: Performed By: #### L 500.3400, L500.4100 #### [facility] [address] [place], [address] IG% 0.500 Normal 0.0-0.9 [facility] Comment on above: Result Comment: IG% - Immature Granulocytes (promyelocytes, myelocytes and metamyelocytes) > 1% indicates that a LEFT SHIFT is Present. Performed By: #### L 500.3400, L500.4100 #### [facility] [address] [place], [address] Lymphocytes/100 WBC (Bld) 15.8 % Low 19-41 [facility] Comment on above: Performed By: #### L 500.3400, L500.4100 #### [facility] [address] [place], [address] MCH (RBC) [Entitic mass] 29.5 pg Normal 27.0-32.0 [facility] Comment on above: Performed By: #### L 500.3400, L500.4100 #### [facility] [address] [place], [address] MCHC (RBC) [Mass/Vol] 32.7 g/dL Normal 32-36 [facility] Comment on above: Performed By: #### L 500.3400, L500.4100 #### [facility] [address] [place], [address] MCV (RBC) [Entitic vol] 90.1 fL Normal 81-99 [facility] Comment on above: Performed By: #### L 500.3400, L500.4100 #### [facility] [address] [place], [address] Monocytes/100 WBC (Bld) 7.0 % Normal 0-10 [facility] Comment on above: Performed By: #### L 500.3400, L500.4100 #### [facility] [address] [place], [address] Neutrophils/100 WBC (Bld) 74.5 % High 47-70 [facility] Comment on above: Performed By: #### L 500.3400, L500.4100 #### [facility] [address] [place], [address] Nucleated RBC (Bld) [#/Vol] 0 10*3/uL Normal 0-5 [facility] Comment on above: Performed By: #### L 500.3400, L500.4100 #### [facility] [address] [place], [address] Platelet mean volume (Bld) [Entitic vol] 10.5 fL Normal 6.2-12.0 [facility] Comment on above: Performed By: #### L 500.3400, L500.4100 #### [facility] [address] [place], [address] Platelets (Bld) [#/Vol] 348 10*3/uL Normal 150-450 [facility] Comment on above: Performed By: #### L 500.3400, L500.4100 #### [facility] [address] [place], [address] RBC (Bld) [#/Vol] 4.24 10*6/uL Normal 4.2-5.4 [facility] Comment on above: Performed By: #### L 500.3400, L500.4100 #### [facility] [address] [place], [address] RDW SD 42.7 fl Normal 35.1-43.9 [facility] Comment on above: Performed By: #### L 500.3400, L500.4100 #### [facility] [address] [place], [address] WBC (Bld) [#/Vol] 7.7 10*3/uL Normal 4.4-11.0 [facility] Comment on above: Performed By: #### L 500.3400, L500.4100 #### [facility] [address] [place], [address] CRPon 08-02-2024 C-REACTIVE PROT 3.22 mg/L High 0.0-3.0 [facility] Comment on above: Result Comment: C-Re active Protein (CRP) provides useful information for the diagnosis, therapy and monitoring of inflammatory processes and associated diseases. For the evaluation of Relative Risk for Cardiovascular Disease, a High Sensitivity CRP (HSCRP) should be ordered. Performed By: #### L 500.3400, L500.4100 #### [facility] [address] [place], [address] Carbon dioxide measurementOr dered By: Moreliasusana Higgins on 08-02-2024 CO2 [Moles/Vol] 28.0 mmol/L 21.0-32.0 [facility] Chloride measurementOrdered By: Moreliasusana Higgins on 08-02-2024 Chloride [Moles/Vol] 105 mmol/L 98-[address] [facility] Comprehensive Metabolic Prof ilon 08-02-2024 Albumin [Mass/Vol] 3.3 g/dL Normal 3.2-5.0 [facility] Comment on above: Performed By: #### L 500.3400, L500.4100 #### [facility] [address] [place], [address] Albumin/Globulin [Mass ratio] 0.9 {ratio} Normal 0.9-2.4 [facility] Comment on above: Performed By: #### L 500.3400, L500.4100 #### [facility] [address] [place], [address] ALK P 79 U/L Normal 45-117 [facility] Comment on above: Performed By: #### L 500.3400, L500.4100 #### [facility] [address] [place], [address] ALT [Catalytic activity/Vol] 24 U/L Normal 13-56 [facility] Comment on above: Performed By: #### L 500.3400, L500.4100 #### [facility] [address] [place], [address] AST [Catalytic activity/Vol] 19 U/L Normal 15-37 [facility] Comment on above: Performed By: #### L 500.3400, L500.4100 #### [facility] [address] [place], [address] Bilirubin [Mass/Vol] 1.10 mg/dL High 0.20-1.[address] [facility] Comment on above: Result Comment: For patients on eltrombopag therapy, use of Dimension [place] TBIL is not recommended. Performed By: #### L 500.3400, L500.4100 #### [facility] [address] [place], [address] BUN/CRE 23.7 RATIO High 10-20 [facility] Comment on above: Performed By: #### L 500.3400, L500.4100 #### [facility] [address] [place], [address] CA,Total 9.2 mg/dL Normal 8.5-10.1 [facility] Comment on above: Performed By: #### L 500.3400, L500.4100 #### [facility] [address] [place], [address] Chloride [Moles/Vol] 105 mmol/L Normal 98-[address] [facility] Comment on above: Performed By: #### L 500.3400, L500.4100 #### [facility] [address] [place], [address] CO2 [Moles/Vol] 28.0 mmol/L Normal 21.0-32.0 [facility] Comment on above: Performed By: #### L 500.3400, L500.4100 #### [facility] [address] [place], [address] Creatinine [Mass/Vol] 0.93 mg/dL Normal 0.55-1.02 [facility] Comment on above: Result Comment: The validity of the calculated GFR GFRAA in patients over 70 years has not been determined. Clinical correlation is essential. Performed By: #### L 500.3400, L500.4100 #### [facility] [address] [place], [address] EST GFR - AA 75 mL/min Normal >60 [facility] Comment on above: Result Comment: Afri can Nepalese GFR Calc Performed By: #### L 500.3400, L500.4100 #### [facility] [address] [place], [address] GAP 5 Normal 5-15 [facility] Comment on above: Performed By: #### L 500.3400, L500.4100 #### [facility] [address] [place], [address] GFR/1.73 sq M.predicted among non-blacks MDRD (S/P/Bld) [Vol rate/Area] 62 mL/min/{1.73_m2} Normal >60 [facility] Comment on above: Result Comment: Non- GFR Calc Performed By: #### L 500.3400, L500.4100 #### [facility] [address] [place], [address] Globulin (S) [Mass/Vol] 3.5 g/dL Normal 2.2-4.2 [facility] Comment on above: Performed By: #### L 500.3400, L500.4100 #### [facility] [address] [place], [address] Glucose [Mass/Vol] 114 mg/dL High 74-106 [facility] Comment on above: Result Comment: Fast ing Glucose result from 100 to 125 mg/dL suggests IMPAIRED HOMEOSTASIS per A.D.A. criteria. Performed By: #### L 500.3400, L500.4100 #### [facility] [address] [place], [address] Potassium [Moles/Vol] 4.2 mmol/L Normal 3.5-5.1 [facility] Comment on above: Performed By: #### L 500.3400, L500.4100 #### [facility] [address] [place], [address] Sodium [Moles/Vol] 138 mmol/L Normal 136-145 [facility] Comment on above: Performed By: #### L 500.3400, L500.4100 #### [facility] [address] [place], [address] T PROT 6.8 g/dL Normal 6.4-8.2 [facility] Comment on above: Performed By: #### L 500.3400, L500.4100 #### [facility] [address] [place], [address] Urea nitrogen [Mass/Vol] 22 mg/dL High 7-18 [facility] Comment on above: Performed By: #### L 500.3400, L500.4100 #### [facility] [address] [place], [address] Eosinophil percentageOrdered By: Morelia Higgins on 08-02-2024 Eosinophils/100 WBC (Bld) 1.3 % 0-5 [facility] Erythrocyte Sed Rateon 08-02 SED RATE 3 mm/hr Normal 0-30 [facility] Comment on above: Performed By: #### L 500.3400, L500.4100 #### [facility] [address] [place], [address] Erythrocyte distribution wid th ratioOrdered By: Morelia Higgins on 08-02-2024 Erythrocyte distribution width (RBC) [Ratio] 13.2 % 11.6-14.6 [facility] Erythrocyte distribution wid th standard deviationOrdered By: Morelia Higgins on 08-02-2024 Erythrocyte distribution width (RBC) [Entitic vol] 42.7 fL 35.1-43.9 [facility] Erythrocyte distribution width (RBC) [Ratio] 42.7 fl 35.1-43.9 [facility] Erythrocyte sedimentation ra teOrdered By: Morelia Higgins on 08-02-2024 ESR (Bld) [Velocity] 3 mm/h 0-[address] [facility] Estimated glomerular filtrat ion rate (GFR) AmericanOrdered By: Morelia Higgins on 08-02-2024 Estimated GFR (MDRD) Amer 75 mL/min >60 [facility] Comment on above: GFR Calc Glomerular filtration rate ( GFR) estimationOrdered By: Morelia Higgins on 08-02-2024 Estimated GFR (MDRD) Non-Af Amer 62 mL/min >60 [facility] Comment on above: Non- GFR Calc GFR/1.73 sq M.predicted among non-blacks MDRD (S/P/Bld) [Vol rate/Area] 62 mL/min/{1.73_m2} >60 [facility] Comment on above: Non- GFR Calc Glucose measurementOrdered B y: Morelia Higgins on 08-02-2024 Glucose [Mass/Vol] 114 mg/dL High 74-106 [facility] Comment on above: Fasting Glucose resu lt from 100 to 125 mg/dL suggests IMPAIRED HOMEOSTASIS per A.D.A. criteria. Hematocrit Auto (Bld) [Volum e fraction]Ordered By: Morelia Higgins on 08-02-2024 Hematocrit (Bld) [Volume fraction] 38.2 % 37-47 [facility] Hemoglobin measurementOrdere d By: Morelia Higgins on 08-02-2024 Hemoglobin (Bld) [Mass/Vol] 12.5 g/dL 12.0-15.0 [facility] Immature granulocytes/100 WB C Auto (Bld)Ordered By: Morelia Higgins on 08-02-2024 Immature granulocytes/100 WBC (Bld) 0.500 % 0.0-0.9 [facility] Comment on above: IG% - Immature Granu locytes (promyelocytes, myelocytes and metamyelocytes) > 1% indicates that a LEFT SHIFT is Present. Laboratory - Chemistry and C hemistry - challengeOrdered By: Morelia Higgins on 08-02-2024 AST [Catalytic activity/Vol] 19 U/L 15-37 [facility] Lymphocytes Auto (Unsp spec) [#/Vol]Ordered By: Morelia Higgins on 08-02-2024 Lymphocytes (Bld) [#/Vol] 1.22 10*3/uL 0.83-4.51 [facility] Lymphocytes/100 WBC Auto (Un sp spec)Ordered By: Morelia Higgins on 08-02-2024 Lymphocytes/100 WBC (Bld) 15.8 % Low 19-41 [facility] MCV (mean corpuscular volume ) determinationOrdered By: Morelia Higgins on 08-02-2024 MCV (RBC) [Entitic vol] 90.1 fL 81-99 [facility] Mean corpuscular hemoglobin (MCH) determinationOrdered By: Morelia Higgins on 08-02-2024 MCH (RBC) [Entitic mass] 29.5 pg 27.0-32.0 [facility] Mean corpuscular hemoglobin concentration (MCHC) determinationOrdered By: Morelia Higgins on 08-02-2024 MCHC (RBC) [Mass/Vol] 32.7 g/dL 32-36 [facility] Mean platelet volume determi nationOrdered By: Morelia Higgins on 08-02-2024 Platelet mean volume (Bld) [Entitic vol] 10.5 fL 6.2-12.0 [facility] Monocyte percentageOrdered B y: Morelia Higgins on 08-02-2024 Monocytes/100 WBC (Bld) 7.0 % 0-10 [facility] Neutrophil percentageOrdered By: Morelia Higgins on 08-02-2024 Neutrophils/100 WBC (Bld) 74.5 % High 47-70 [facility] Nucleated red blood cell per centageOrdered By: Morelia Higgins on 08-02-2024 Nucleated RBC/100 WBC (Bld) [Ratio] 0 % 0-5 [facility] Platelet countOrdered By: Gerson Higgins on 08-02-2024 Platelets (Bld) [#/Vol] 348 10*3/uL 150-450 [facility] Potassium measurementOrdered By: Morelia Higgins on 08-02-2024 Potassium [Moles/Vol] 4.2 mmol/L 3.5-5.1 [facility] RBC Auto (Bld) [#/Vol]Ordere d By: Morelia Higgins on 08-02-2024 RBC (Bld) [#/Vol] 4.24 10*6/uL 4.2-5.4 [facility] Serum anion gap measurementO rdered By: Morelia Higgins on 08-02-2024 Anion gap [Moles/Vol] 5 mmol/L 5-15 [facility] Serum globulin measurementOr dered By: Morelia Higgins on 08-02-2024 Globulin (S) [Mass/Vol] 3.5 g/dL 2.2-4.2 [facility] Serum or plasma alanine kwok otransferase (ALT) measurementOrdered By: Morelia Higgins on 08-02-2024 ALT [Catalytic activity/Vol] 24 U/L 13-56 [facility] Serum or plasma albumin josué urement (mass/volume)Ordered By: Morelia Higgins on 08-02-2024 Albumin [Mass/Vol] 3.3 g/dL 3.2-5.0 [facility] Serum or plasma alkaline mike sphatase measurementOrdered By: Morelia Higgins on 08-02-2024 ALP [Catalytic activity/Vol] 79 U/L 45-117 [facility] Serum or plasma calcium josué urement (mass/volume)Ordered By: Morelia Higgins on 08-02-2024 Calcium [Mass/Vol] 9.2 mg/dL 8.5-10.1 [facility] Serum or plasma creatinine m easurement (mass/volume)Ordered By: Morelia Higgins on 08-02-2024 Creatinine [Mass/Vol] 0.93 mg/dL 0.55-1.02 [facility] Comment on above: The validity of the calculated GFR & GFRAA in patients over 70 years has not been determined. Clinical correlation is essential. Serum or plasma urea nitroge n measurement (mass/volume)Ordered By: Morelia Higgins on 08-02-2024 Urea nitrogen [Mass/Vol] 22 mg/dL High 7-18 [facility] Sodium levelOrdered By: Glenda Higgins on 08-02-2024 Sodium [Moles/Vol] 138 mmol/L 136-145 [facility] Total proteinOrdered By: Niels Higgins on 08-02-2024 Protein [Mass/Vol] 6.8 g/dL 6.4-8.2 [facility] White blood cell (WBC) count Ordered By: Morelia Higgins on 08-02-2024 WBC (Bld) [#/Vol] 7.7 10*3/uL 4.4-11.0 [facility] Bilirubin directOrdered By: Sathish Brewster on 06-22-2024 Bilirubin.direct [Mass/Vol] 0.14 mg/dL 0.00-0.30 [facility] Bilirubin, totalOrdered By: Sathish Brewster on 06-22-2024 Bilirubin [Mass/Vol] 0.90 mg/dL 0.20-1.[address] [facility] Comment on above: For patients on eltr ombopag therapy, use of Dimension [place] TBIL is not recommended. High density lipoprotein (HD L) measurementOrdered By: Sathish Brewster on 06-22-2024 Cholesterol in HDL [Mass/Vol] 53 mg/dL >40 [facility] Comment on above: The drugs N-Acetylcy steine and Metamizole may falsely depress this assay. Reference Range HDL <40 mg/dL Low HDL Cholesterol HDL >or= 60 mg/dL High HDL Cholesterol Laboratory - Chemistry and C hemistry - challengeOrdered By: Sathish Brewster on 06-22-2024 AST [Catalytic activity/Vol] 15 U/L 15-37 [facility] Lipid Profileon 06-22-2024 Cholesterol [Mass/Vol] 229 mg/dL High 200 [facility] Comment on above: Result Comment: <200 mg/dL Desirable 200-240 mg/dL Borderline >240 mg/dL High Risk Performed By: #### L 500.3400, L500.4100 #### [facility] [address] [place], [address] Cholesterol in HDL [Mass/Vol] 53 mg/dL Normal [facility] Comment on above: Result Comment: The drugs N-Acetylcysteine and Metamizole may falsely depress this assay. Reference Range HDL <40 mg/dL Low HDL Cholesterol HDL >or= 60 mg/dL High HDL Cholesterol Performed By: #### L 500.3400, L500.4100 #### [facility] [address] [place], [address] Cholesterol in LDL [Mass/Vol] 151 mg/dL High 0-130 [facility] Comment on above: Performed By: #### L 500.3400, L500.4100 #### [facility] [address] [place], [address] Cholesterol in VLDL [Mass/Vol] 25 mg/dL Normal 5-40 [facility] Comment on above: Performed By: #### L 500.3400, L500.4100 #### [facility] [address] [place], [address] Triglyceride [Mass/Vol] 127 mg/dL Normal [facility] Comment on above: Result Comment: The drugs N-Acetylcysteine and Metamizole may falsely depress this assay. Serum Triglycerides Reference Interval Normal <150 mg/dL Borderline high 150 - 199 mg/dL High 200 - 499 mg/dL Very High > or = 500 mg/dL Performed By: #### L 500.3400, L500.4100 #### [facility] [address] [place], [address] Liver Profileon 06-22-2024 Albumin [Mass/Vol] 3.1 g/dL Low 3.2-5.0 [facility] Comment on above: Performed By: #### L 500.3400, L500.4100 #### [facility] [address] [place], [address] ALK P 86 U/L Normal 45-117 [facility] Comment on above: Performed By: #### L 500.3400, L500.4100 #### [facility] [address] [place], [address] ALT [Catalytic activity/Vol] 22 U/L Normal 13-56 [facility] Comment on above: Performed By: #### L 500.3400, L500.4100 #### [facility] [address] [place], [address] AST [Catalytic activity/Vol] 15 U/L Normal 15-37 [facility] Comment on above: Performed By: #### L 500.3400, L500.4100 #### [facility] [address] [place], [address] Bilirubin [Mass/Vol] 0.90 mg/dL Normal 0.20-1.[address] [facility] Comment on above: Result Comment: For patients on eltrombopag therapy, use of Dimension [place] TBIL is not recommended. Performed By: #### L 500.3400, L500.4100 #### [facility] [address] [place], [address] Bilirubin.direct [Mass/Vol] 0.14 mg/dL Normal 0.00-0.30 [facility] Comment on above: Performed By: #### L 500.3400, L500.4100 #### [facility] [address] [place], [address] Globulin (S) [Mass/Vol] 3.4 g/dL Normal 2.2-4.2 [facility] Comment on above: Performed By: #### L 500.3400, L500.4100 #### [facility] [address] [place], [address] T PROT 6.5 g/dL Normal 6.4-8.2 [facility] Comment on above: Performed By: #### L 500.3400, L500.4100 #### [facility] [address] [place], [address] Low density lipoprotein (LDL ) cholesterol measurementOrdered By: Sathish Brewster on 06-22-2024 Cholesterol in LDL [Mass/Vol] 151 mg/dL High 0-130 [facility] Serum globulin measurementOr dered By: Sathish Brewster on 06-22-2024 Globulin (S) [Mass/Vol] 3.4 g/dL 2.2-4.2 [facility] Serum or plasma alanine kwok otransferase (ALT) measurementOrdered By: Sathish Brewster on 06-22-2024 ALT [Catalytic activity/Vol] 22 U/L 13-56 [facility] Serum or plasma albumin josué urement (mass/volume)Ordered By: Sathish Brewster on 06-22-2024 Albumin [Mass/Vol] 3.1 g/dL Low 3.2-5.0 [facility] Serum or plasma alkaline mike sphatase measurementOrdered By: Sathish Brewster on 06-22-2024 ALP [Catalytic activity/Vol] 86 U/L 45-117 [facility] Serum or plasma cholesterol measurement (mass/volume)Ordered By: Sathish Brewster on 06-22-2024 Cholesterol [Mass/Vol] 229 mg/dL High <200 [facility] Comment on above: <200 mg/dL Desirable 200-240 mg/dL Borderline >240 mg/dL High Risk Total proteinOrdered By: Blair Brewster on 06-22-2024 Protein [Mass/Vol] 6.5 g/dL 6.4-8.2 [facility] Triglycerides measurementOrd ered By: Sathish Brewster on 06-22-2024 Triglyceride [Mass/Vol] 127 mg/dL <199 [facility] Comment on above: The drugs N-Acetylcy steine and Metamizole may falsely depress this assay.Serum Triglycerides Reference Interval Normal <150 mg/dL Borderline high 150 - 199 mg/dL High 200 - 499 mg/dL Very High > or = 500 mg/dL Very low density lipoprotein (VLDL) cholesterol measurementOrdered By: Sathish Brewster on 06-22-2024 Very low density lipoprotein (VLDL) cholesterol measurement 25 mg/dL 5-40 [facility] VLDL Cholesterol 25 mg/dL 5-40 [facility] Absolute neutrophil countOrd ered By: Morelia Higgins on 05-08-2024 Neutrophils (Bld) [#/Vol] 5.2 10*3/uL 2.0-7.7 [facility] Albumin to globulin ratioOrd ered By: Morelia Higgins on 05-08-2024 Albumin/Globulin [Mass ratio] 0.9 {ratio} 0.9-2.4 [facility] Basophil percentageOrdered B y: Morelia Higgins on 05-08-2024 Basophils/100 WBC (Bld) 0.8 % 0-1 [facility] Bilirubin, totalOrdered By: Morelia Higgins on 05-08-2024 Bilirubin [Mass/Vol] 0.70 mg/dL 0.20-1.[address] [facility] Comment on above: For patients on eltr ombopag therapy, use of Dimension [place] TBIL is not recommended. Blood urea nitrogen (BUN)/cr eatinine ratioOrdered By: Morelia Higgins on 05-08-2024 Urea nitrogen/Creatinine [Mass ratio] 20.5 mg/mg High 10-20 [facility] C-reactive protein measureme nt by high sensitivity methodOrdered By: Morelia Higgins on 05-08-2024 C-Reactive Protein Extended Range 8.25 mg/L High 0.0-3.0 [facility] Comment on above: C-Reactive Protein ( CRP) provides useful information for thediagnosis, therapy and monitoring of inflammatory processesand associated diseases. For the evaluation of Relative Riskfor Cardiovascular Disease, a High Sensitivity CRP (HSCRP)should be ordered. CBC W/Diff, Automatedon 04-14 Absolute Lymph 1.03 X10 3/uL Normal 0.83-4.51 [facility] Comment on above: Performed By: #### L 500.3400, L500.4100 #### [facility] [address] [place], [address] Absolute Neut 5.2 X10 3/uL Normal 2.0-7.7 [facility] Comment on above: Performed By: #### L 500.3400, L500.4100 #### [facility] [address] [place], [address] Basophils/100 WBC (Bld) 0.8 % Normal 0-1 [facility] Comment on above: Performed By: #### L 500.3400, L500.4100 #### [facility] [address] [place], [address] Eosinophils/100 WBC (Bld) 2.5 % Normal 0-5 [facility] Comment on above: Performed By: #### L 500.3400, L500.4100 #### [facility] [address] [place], [address] Erythrocyte distribution width (RBC) [Ratio] 12.3 % Normal 11.6-14.6 [facility] Comment on above: Performed By: #### L 500.3400, L500.4100 #### [facility] [address] [place], [address] Hematocrit (Bld) [Volume fraction] 39.9 % Normal 37-47 [facility] Comment on above: Performed By: #### L 500.3400, L500.4100 #### [facility] [address] [place], [address] Hemoglobin (Bld) [Mass/Vol] 12.6 g/dL Normal 12.0-15.0 [facility] Comment on above: Performed By: #### L 500.3400, L500.4100 #### [facility] [address] [place], [address] IG% 0.400 Normal 0.0-0.9 [facility] Comment on above: Result Comment: IG% - Immature Granulocytes (promyelocytes, myelocytes and metamyelocytes) > 1% indicates that a LEFT SHIFT is Present. Performed By: #### L 500.3400, L500.4100 #### [facility] [address] [place], [address] Lymphocytes/100 WBC (Bld) 14.5 % Low 19-41 [facility] Comment on above: Performed By: #### L 500.3400, L500.4100 #### [facility] [address] [place], [address] MCH (RBC) [Entitic mass] 28.4 pg Normal 27.0-32.0 [facility] Comment on above: Performed By: #### L 500.3400, L500.4100 #### [facility] [address] [place], [address] MCHC (RBC) [Mass/Vol] 31.6 g/dL Low 32-36 [facility] Comment on above: Performed By: #### L 500.3400, L500.4100 #### [facility] [address] [place], [address] MCV (RBC) [Entitic vol] 89.9 fL Normal 81-99 [facility] Comment on above: Performed By: #### L 500.3400, L500.4100 #### [facility] [address] [place], [address] Monocytes/100 WBC (Bld) 9.0 % Normal 0-10 [facility] Comment on above: Performed By: #### L 500.3400, L500.4100 #### [facility] [address] [place], [address] Neutrophils/100 WBC (Bld) 72.8 % High 47-70 [facility] Comment on above: Performed By: #### L 500.3400, L500.4100 #### [facility] [address] [place], [address] Nucleated RBC (Bld) [#/Vol] 0 10*3/uL Normal 0-5 [facility] Comment on above: Performed By: #### L 500.3400, L500.4100 #### [facility] [address] [place], [address] Platelet mean volume (Bld) [Entitic vol] 10.4 fL Normal 6.2-12.0 [facility] Comment on above: Performed By: #### L 500.3400, L500.4100 #### [facility] [address] [place], [address] Platelets (Bld) [#/Vol] 340 10*3/uL Normal 150-450 [facility] Comment on above: Performed By: #### L 500.3400, L500.4100 #### [facility] [address] [place], [address] RBC (Bld) [#/Vol] 4.44 10*6/uL Normal 4.2-5.4 [facility] Comment on above: Performed By: #### L 500.3400, L500.4100 #### [facility] [address] [place], [address] RDW SD 40.5 fl Normal 35.1-43.9 [facility] Comment on above: Performed By: #### L 500.3400, L500.4100 #### [facility] [address] [place], [address] WBC (Bld) [#/Vol] 7.1 10*3/uL Normal 4.4-11.0 [facility] Comment on above: Performed By: #### L 500.3400, L500.4100 #### [facility] [address] [place], [address] CRPon 05-08-2024 C-REACTIVE PROT 8.25 mg/L High 0.0-3.0 [facility] Comment on above: Result Comment: C-Re active Protein (CRP) provides useful information for the diagnosis, therapy and monitoring of inflammatory processes and associated diseases. For the evaluation of Relative Risk for Cardiovascular Disease, a High Sensitivity CRP (HSCRP) should be ordered. Performed By: #### L 500.3400, L500.4100 #### [facility] [address] [place], [address] Carbon dioxide measurementOr dered By: Morelia Higgins on 05-08-2024 CO2 [Moles/Vol] 29.0 mmol/L 21.0-32.0 [facility] Chloride measurementOrdered By: Morelia Higgins on 05-08-2024 Chloride [Moles/Vol] 106 mmol/L 98-[address] [facility] Comprehensive Metabolic Prof ilon 05-08-2024 Albumin [Mass/Vol] 3.1 g/dL Low 3.2-5.0 [facility] Comment on above: Performed By: #### L 500.3400, L500.4100 #### [facility] [address] [place], [address] Albumin/Globulin [Mass ratio] 0.9 {ratio} Normal 0.9-2.4 [facility] Comment on above: Performed By: #### L 500.3400, L500.4100 #### [facility] [address] [place], [address] ALK P 91 U/L Normal 45-117 [facility] Comment on above: Performed By: #### L 500.3400, L500.4100 #### [facility] [address] [place], [address] ALT [Catalytic activity/Vol] 22 U/L Normal 13-56 [facility] Comment on above: Performed By: #### L 500.3400, L500.4100 #### [facility] [address] [place], [address] AST [Catalytic activity/Vol] 12 U/L Low 15-37 [facility] Comment on above: Performed By: #### L 500.3400, L500.4100 #### [facility] [address] [place], [address] Bilirubin [Mass/Vol] 0.70 mg/dL Normal 0.20-1.[address] [facility] Comment on above: Result Comment: For patients on eltrombopag therapy, use of Dimension [place] TBIL is not recommended. Performed By: #### L 500.3400, L500.4100 #### [facility] [address] [place], [address] BUN/CRE 20.5 RATIO High 10-20 [facility] Comment on above: Performed By: #### L 500.3400, L500.4100 #### [facility] [address] [place], [address] CA,Total 9.1 mg/dL Normal 8.5-10.1 [facility] Comment on above: Performed By: #### L 500.3400, L500.4100 #### [facility] [address] [place], [address] Chloride [Moles/Vol] 106 mmol/L Normal 98-[address] [facility] Comment on above: Performed By: #### L 500.3400, L500.4100 #### [facility] [address] [place], [address] CO2 [Moles/Vol] 29.0 mmol/L Normal 21.0-32.0 [facility] Comment on above: Performed By: #### L 500.3400, L500.4100 #### [facility] [address] [place], [address] Creatinine [Mass/Vol] 0.83 mg/dL Normal 0.55-1.02 [facility] Comment on above: Result Comment: The validity of the calculated GFR GFRAA in patients over 70 years has not been determined. Clinical correlation is essential. Performed By: #### L 500.3400, L500.4100 #### [facility] [address] [place], [address] EST GFR - AA 85 mL/min Normal >60 [facility] Comment on above: Result Comment: Afri can Nepalese GFR Calc Performed By: #### L 500.3400, L500.4100 #### [facility] [address] [place], [address] GAP 4 Low 5-15 [facility] Comment on above: Performed By: #### L 500.3400, L500.4100 #### [facility] [address] [place], [address] GFR/1.73 sq M.predicted among non-blacks MDRD (S/P/Bld) [Vol rate/Area] 70 mL/min/{1.73_m2} Normal >60 [facility] Comment on above: Result Comment: Non- GFR Calc Performed By: #### L 500.3400, L500.4100 #### [facility] [address] [place], [address] Globulin (S) [Mass/Vol] 3.5 g/dL Normal 2.2-4.2 [facility] Comment on above: Performed By: #### L 500.3400, L500.4100 #### [facility] [address] [place], [address] Glucose [Mass/Vol] 116 mg/dL High 74-106 [facility] Comment on above: Result Comment: Fast ing Glucose result from 100 to 125 mg/dL suggests IMPAIRED HOMEOSTASIS per A.D.A. criteria. Performed By: #### L 500.3400, L500.4100 #### [facility] [address] [place], [address] Potassium [Moles/Vol] 4.4 mmol/L Normal 3.5-5.1 [facility] Comment on above: Performed By: #### L 500.3400, L500.4100 #### [facility] [address] [place], [address] Sodium [Moles/Vol] 138 mmol/L Normal 136-145 [facility] Comment on above: Performed By: #### L 500.3400, L500.4100 #### [facility] [address] [place], [address] T PROT 6.6 g/dL Normal 6.4-8.2 [facility] Comment on above: Performed By: #### L 500.3400, L500.4100 #### [facility] [address] [place], [address] Urea nitrogen [Mass/Vol] 17 mg/dL Normal 7-18 [facility] Comment on above: Performed By: #### L 500.3400, L500.4100 #### [facility] [address] [place], [place], [address] Eosinophil percentageOrdered By: Morelia Higgins on 05-08-2024 Eosinophils/100 WBC (Bld) 2.5 % 0-5 [facility] Erythrocyte Sed Rateon 05-08 SED RATE 6 mm/hr Normal 0-30 [facility] Comment on above: Performed By: #### L 500.3400, L500.4100 #### [facility] [address] [place], [place], [address] Erythrocyte distribution wid th ratioOrdered By: Morelia Higgins on 05-08-2024 Erythrocyte distribution width (RBC) [Ratio] 12.3 % 11.6-14.6 [facility] Erythrocyte distribution wid th standard deviationOrdered By: Morelia Higgins on 05-08-2024 Erythrocyte distribution width (RBC) [Entitic vol] 40.5 fL 35.1-43.9 [facility] Erythrocyte sedimentation ra teOrdered By: Morelia Higgins on 05-08-2024 ESR (Bld) [Velocity] 6 mm/h 0-[address] [facility] Estimated glomerular filtrat ion rate (GFR) AmericanOrdered By: Morelia Higgins on 05-08-2024 Estimated GFR (MDRD) Amer 85 mL/min >60 [facility] Comment on above: GFR Calc Glomerular filtration rate ( GFR) estimationOrdered By: Morelia Higgins on 05-08-2024 Estimated GFR (MDRD) Non-Af Amer 70 mL/min >60 [facility] Comment on above: Non- GFR Calc Glucose measurementOrdered B y: Morelia Higgins on 05-08-2024 Glucose [Mass/Vol] 116 mg/dL High 74-106 [facility] Comment on above: Fasting Glucose resu lt from 100 to 125 mg/dL suggests IMPAIRED HOMEOSTASIS per A.D.A. criteria. Hematocrit Auto (Bld) [Volum e fraction]Ordered By: Morelia Higgins on 05-08-2024 Hematocrit (Bld) [Volume fraction] 39.9 % 37-47 [facility] Hemoglobin measurementOrdere d By: Morelia Higgins on 05-08-2024 Hemoglobin (Bld) [Mass/Vol] 12.6 g/dL 12.0-15.0 [facility] Immature granulocytes/100 WB C Auto (Bld)Ordered By: Morelia Higgins on 05-08-2024 Immature granulocytes/100 WBC (Bld) 0.400 % 0.0-0.9 [facility] Comment on above: IG% - Immature Granu locytes (promyelocytes, myelocytes and metamyelocytes) > 1% indicates that a LEFT SHIFT is Present. Laboratory - Chemistry and C hemistry - challengeOrdered By: Morelia Higgins on 05-08-2024 AST [Catalytic activity/Vol] 12 U/L Low 15-37 [facility] Lymphocytes Auto (Unsp spec) [#/Vol]Ordered By: Morelia Higgins on 05-08-2024 Lymphocytes (Bld) [#/Vol] 1.03 10*3/uL 0.83-4.51 [facility] Lymphocytes/100 WBC Auto (Un sp spec)Ordered By: Morelia Higgins on 05-08-2024 Lymphocytes/100 WBC (Bld) 14.5 % Low 19-41 [facility] MCV (mean corpuscular volume ) determinationOrdered By: Morelia Higgins on 05-08-2024 MCV (RBC) [Entitic vol] 89.9 fL 81-99 [facility] Mean corpuscular hemoglobin (MCH) determinationOrdered By: Morelia Higgins on 05-08-2024 MCH (RBC) [Entitic mass] 28.4 pg 27.0-32.0 [facility] Mean corpuscular hemoglobin concentration (MCHC) determinationOrdered By: Morelia Higgins on 05-08-2024 MCHC (RBC) [Mass/Vol] 31.6 g/dL Low 32-36 [facility] Mean platelet volume determi nationOrdered By: Morelia Higgins on 05-08-2024 Platelet mean volume (Bld) [Entitic vol] 10.4 fL 6.2-12.0 [facility] Monocyte percentageOrdered B y: Morelia Higgins on 05-08-2024 Monocytes/100 WBC (Bld) 9.0 % 0-10 [facility] Neutrophil percentageOrdered By: Morelia Higgins on 05-08-2024 Neutrophils/100 WBC (Bld) 72.8 % High 47-70 [facility] Nucleated red blood cell per centageOrdered By: Morelia Higgins on 05-08-2024 Nucleated RBC/100 WBC (Bld) [Ratio] 0 % 0-5 [facility] Platelet countOrdered By: Gerson Higgins on 05-08-2024 Platelets (Bld) [#/Vol] 340 10*3/uL 150-450 [facility] Potassium measurementOrdered By: Morelia Higgins on 05-08-2024 Potassium [Moles/Vol] 4.4 mmol/L 3.5-5.1 [facility] RBC Auto (Bld) [#/Vol]Ordere d By: Morelia Higgins on 05-08-2024 RBC (Bld) [#/Vol] 4.44 10*6/uL 4.2-5.4 [facility] Serum anion gap measurementO rdered By: Morelia Higgins on 05-08-2024 Anion gap [Moles/Vol] 4 mmol/L Low 5-15 [facility] Serum globulin measurementOr dered By: Morelia Higgins on 05-08-2024 Globulin (S) [Mass/Vol] 3.5 g/dL 2.2-4.2 [facility] Serum or plasma alanine kwok otransferase (ALT) measurementOrdered By: Morelia Higgins on 05-08-2024 ALT [Catalytic activity/Vol] 22 U/L 13-56 [facility] Serum or plasma albumin josué urement (mass/volume)Ordered By: Morelia Higgins on 05-08-2024 Albumin [Mass/Vol] 3.1 g/dL Low 3.2-5.0 [facility] Serum or plasma alkaline mike sphatase measurementOrdered By: Morelia Higgisn on 05-08-2024 ALP [Catalytic activity/Vol] 91 U/L 45-117 [facility] Serum or plasma calcium josué urement (mass/volume)Ordered By: Morelia Higgins on 05-08-2024 Calcium [Mass/Vol] 9.1 mg/dL 8.5-10.1 [facility] Serum or plasma creatinine m easurement (mass/volume)Ordered By: Morelia Higgins on 05-08-2024 Creatinine [Mass/Vol] 0.83 mg/dL 0.55-1.02 [facility] Comment on above: The validity of the calculated GFR & GFRAA in patients over 70 years has not been determined. Clinical correlation is essential. Serum or plasma urea nitroge n measurement (mass/volume)Ordered By: Morelia Higgins on 05-08-2024 Urea nitrogen [Mass/Vol] 17 mg/dL 7-18 [facility] Sodium levelOrdered By: Glenda Higgins on 05-08-2024 Sodium [Moles/Vol] 138 mmol/L 136-145 [facility] Total proteinOrdered By: Niels Higgins on 05-08-2024 Protein [Mass/Vol] 6.6 g/dL 6.4-8.2 [facility] White blood cell (WBC) count Ordered By: Morelia Higgins on 05-08-2024 WBC (Bld) [#/Vol] 7.1 10*3/uL 4.4-11.0 [facility] Stress Reporton 03-28-2024 Stress Report [facility] [address] [place] [address] MR#: [id number] Acct: [id number] Name: PHANI DOMÍNGUEZ Rep #: [id number] : 1940 83 From: Marcial Moe MD Primary Care: Dr. Cristal Astudillo MD Status: REG CLI Referring Dr: Sathish Brewster NP, NP-Federico Sex: F C Stress Test Report Exercise myocardial perfusion stress test. 83-year-old lady with a history of chest pain Stress protocol: Resting EKG demonstrates normal sinus rhythm with a rate of 68 bpm bpm resting blood pressure is 142/80 mmHg. The patient exercised according to the regular Shawn protocol for a total duration of 5 minutes and 32 seconds attaining a maximum heart rate of 169 bpm which was 121% of maximum predicted heart rate; the maximum workload was 7 metabolic equivalents. At rest there were no ST or T wave changes noted to suggest ischemia and at peak exercise upsloping ST changes only were noted which did not meet the criteria for ischemia. No clinical angina was noted the test was terminated due to the target heart rate being achieved/fatigue. The peak blood pressure was 178/62 mmHg. Rate-pressure product was 23,000. Myocardial perfusion protocol. 11.5 mCi of technetium 99m sestamibi was injected at rest. The patient exercised according to regular Shawn protocol for total duration of 5-1/2-minute and at peak exercise 33.9 mCi of technetium 99m sestamibi was injected stress images were obtained stress and rest images were reconstructed in comparing the short axis vertical long and horizontal long axis. Gated images were also obtained. Perfusion SPECT analysis: Review of the stress images demonstrate normal uptake of tracer noted in all areas of the myocardium. The resting images similarly demonstrate normal uptake of tracer noted in all areas of the myocardium. No areas of reversibility are noted to suggest ischemia no previous infarct was noted. Gated SPECT analysis: The gated ejection fraction is 81%. Conclusion: Normal exercise myocardial perfusion stress test at a moderate workload Preserved ejection fraction. 03/28/24 1234 Date Marcial Moe MD CC: FRAMING SPECIALIST-C Sathish Brewster; Dr. Cristal Astudillo MD Date Dictated: 03/28/24 1232 Date Transcribed: 03/28/24 123 Supervisor Nurse: CO Signed [facility] 12 Lead EKG performed by [facility] on 03-07-2024 12 Lead EKG performed by [facility] [address] [place] [address] 12 Lead EKG performed by [facility] 03/07/24730 MR#: [id number] Acct: [id number] Name: PHANI DOMÍNGUEZ Rep #: [id number] : 1940 83 From: Sathish Brewster NP FRAMING SPECIALIST-C Attending Dr: EUGENE MoralesC Status: DEP AMB Ordering Dr: Sathish Brewster NP FRAMING SPECIALIST-C Date: 03/07/24 Location: [facility] Sex: F C Admitted: [facility]/12 Lead EKG performed by [facility] ECG Report Interpretation ---Sinus Rhythm WITHIN NORMAL LIMITSElectronically signed on 03/09/2024 at 07:43 by Marcial Moe Software Version 8610 03/09/24743 Date Sathish Brewster NP FRAMING SPECIALIST-C CC: Dr. Cristal Astudillo MD Date Dictated: 03/07/24730 Date Transcribed: 03/07/24730 Supervisor Nurse: ROLAND Signed Normal [facility] Cardiology Visit Reporton Cardiology Visit Report [facility] [address] [place] [address] OFFICE VISIT Date of Service: 03/07/24 MR#: [id number] Acct: [id number] Name: PHANI DOMÍNGUEZ Rep #: [id number] : 1940 Provider: EDDIE agrawal Age/Sex: 83/F Location: [facility] Status: Signed HPI [facility] History of Present Illness Details: Ms. Domínguez is a pleasant 83-year-old lady with a history of hypertension, hyperlipidemia. She returns for follow-up visit. As part of her work-up for palpitations, she had an echocardiogram with demonstrated preserved ejection fraction of 65%, stage I diastolic dysfunction, stress echo was also noted to be normal. Holter monitor demonstrated occasional premature atrial complex. She has had significant myalgias on the statins. She follows her blood pressure closely at home. She states occasional chest "twinge". She denies arm, jaw, or neck discomfort. She states occasional palpitations that describes as fast. She denies bilateral lower extremity edema. She denies claudication. She denies shortness of breath with activity, shortness of breath at rest, orthopnea, or PND. She denies chronic cough. She denies significant, sudden weight gain. She denies lightheadedness, dizziness, near-syncope, or syncope. She denies blood in urine, blood in stool, or epistaxis. He denies fever with chills. She denies myalgia. She denies fatigue. Her exercise level has remained stable. Intake Vital Signs 02/01/24 08:08 03/07/24 10:26 03/07/24 10:35 Height 5 ft 2 in 5 ft 2 in 5 ft 2 in Weight: 121 lb 119 lb BMI 22.1 21.7 BP 134/70 H 134/73 H 148/61 H Blood Pressure Location Lt brachial Lt brachial Lt brachial Position Sitting Sitting Respiration 14 18 Pulse 67 70 77 Pulse Source Monitor Monitor Temp 98.0 F Pulse Oximetry (%) 97 10 Oxygen Delivery Method room air Comment Home Machine Intake Visit Reasons: QUESTIONS ABOUT ZETIA / CHEST TWINGES Allergies hydroxychloroquine Allergy (Severe, Verified 03/07/24 10:26) Itching bee venom protein (honey bee) Allergy (Mild, Verified 03/07/24 10:26) redness ibuprofen Allergy (Mild, Verified 03/07/24 10:26) rash Penicillins Allergy (Mild, Verified 03/07/24 10:26) Rash rosuvastatin (From Crestor) Allergy (Mild, Verified 03/07/24 10:26) muscle pain pravastatin Adverse Reaction (Intermediate, Verified 03/07/24 10:26) Myalgias/leg cramps. Medications ???Medication ???Instructions ???Recorded ???Confirmed ???Type aspirin 81 mg tablet,delayed 81 mg PO DAILY@0800 10/27/17 03/07/24 History release cholecalciferol (vitamin D3) 25 1,000 unit PO BID 07/21/23 03/07/24 History mcg (1,000 unit) tablet atenolol 50 mg tablet 50 mg PO QHS #90 TABLETS 01/18/24 03/07/24 Rx lisinopril 20 mg tablet 20 mg PO QHS #90 tabs 03/07/24 03/07/24 Rx Have you fallen in the past year?: No PFSH Medical History Cancer History of steroid therapy Arthritis Rheumatoid arthritis History of kidney stones History of Holter monitoring Leg cramps Neuropathy Dysuria Hematuria Flank pain Onychomycosis Uterovaginal prolapse, incomplete Preop cardiovascular exam Wears glasses Post-menopausal High cholesterol Injury of head and neck Colitis Non-smoker Normal stress echocardiogram History of echocardiogram Hypertension Cardiology follow-up encounter Vitamin D deficiency Carpal tunnel syndrome Inflammatory polyarthropathy Myalgia due to statin Premature atrial complexes Abnormal EKG Hyperlipidemia Kidney stone Essential hypertension Diverticulosis of colon Surgical History Hx of basal cell carcinoma excision History of D C History of cataract surgery History of hysterectomy History of hysteroscopy Hx of cystoscopy History of lithotripsy History of tonsillectomy and adenoidectomy Family History Father CAD (coronary artery disease) History of coronary artery bypass surgery Alcoholism Sister Anemia Blood clot in vein Diabetes Kidney disease Liver disease CVA (cerebral vascular accident) Mother Asthma Arthritis Bowel disease Osteoporosis Social History Smoking Status: Never smoker alcohol intake: never details: rare substance use type: does not use caffeine: No what type of physical activity do you participate in: walking frequency: 3-4 times per week ROS Const Const: Negative for fatigue, weakness, headache(s), frequent falls, difficulty sleeping or excessive sweating Eyes Eyes: Negative for loss of peripheral vision, transient loss of vision, blurry vision, double vision or tunnel vision ENT (more content not included)... Normal [facility] MR/Lamin 02-01-2024 MR/MAGDALENO [facility] [address] [place], [place] [id number] OFFICE VISIT Date of Service: 02/01/24 MR#: [id number] Acct: [id number] Name: PHANI DOMÍNGUEZ Rep #: [id number] : 1940 Provider: Dr. Cristal milian MD Age/Sex: 83/F Location: [facility] Status: Signed Intake Vital Signs 08/03/23 08:04 02/01/24 08:08 Height 5 ft 2 in 5 ft 2 in Weight: 121 lb BMI 22.1 BP 134/70 H Blood Pressure Location Lt brachial Position Sitting Respiration 14 Pulse 67 Pulse Source Monitor Temp 98.0 F Temp Source Temporal Pulse Oximetry (%) 97 Oxygen Delivery Method room air Intake Visit Reasons: 6 M FU Chief Complaint: No acute concerns Accompanied by: Self Is patient in pain?: No Allergies hydroxychloroquine Allergy (Severe, Verified 02/01/24 08:06) Itching bee venom protein (honey bee) Allergy (Mild, Verified 02/01/24 08:06) redness ibuprofen Allergy (Mild, Verified 02/01/24 08:06) rash Penicillins Allergy (Mild, Verified 02/01/24 08:06) Rash rosuvastatin (From Crestor) Allergy (Mild, Verified 02/01/24 08:06) muscle pain pravastatin Adverse Reaction (Intermediate, Verified 02/01/24 08:06) Myalgias/leg cramps. Medications ???Medication ???Instructions ???Recorded ???Confirmed ???Type aspirin 81 mg tablet,delayed 81 mg PO DAILY@0800 18 02/01/24 History release cholecalciferol (vitamin D3) 25 1,000 unit PO BID 07/21/23 02/01/24 History mcg (1,000 unit) tablet lisinopril 20 mg tablet 20 mg PO QHS #90 tabs 07/21/23 02/01/24 Rx atenolol 50 mg tablet 50 mg PO QHS #90 TABLETS 01/18/24 02/01/24 Rx estriol (bulk) 100 % powder 1 ea miscellaneous 2XW 02/01/24 02/01/24 History Have you fallen in the past year?: No PFSH Medical History Cancer History of steroid therapy Arthritis Rheumatoid arthritis History of kidney stones History of Holter monitoring Leg cramps Neuropathy Dysuria Hematuria Flank pain Onychomycosis Uterovaginal prolapse, incomplete Preop cardiovascular exam Wears glasses Post-menopausal High cholesterol Injury of head and neck Colitis Non-smoker Normal stress echocardiogram History of echocardiogram Hypertension Cardiology follow-up encounter Vitamin D deficiency Carpal tunnel syndrome Inflammatory polyarthropathy Myalgia due to statin Premature atrial complexes Abnormal EKG Hyperlipidemia Kidney stone Essential hypertension Diverticulosis of colon Surgical History Hx of basal cell carcinoma excision History of D C History of cataract surgery History of hysterectomy History of hysteroscopy Hx of cystoscopy History of lithotripsy History of tonsillectomy and adenoidectomy Family History Father CAD (coronary artery disease) History of coronary artery bypass surgery Alcoholism Sister Anemia Blood clot in vein Diabetes Kidney disease Liver disease CVA (cerebral vascular accident) Mother Asthma Arthritis Bowel disease Osteoporosis Social History Smoking Status: Never smoker alcohol intake: never details: rare substance use type: does not use caffeine: No what type of physical activity do you participate in: walking frequency: 3-4 times per week HPI HPI Chief Complaint: No acute concerns Details: PHANI DOMÍNGUEZ, is a 83 F who presents to the office today for 6-month follow-up. 83-year-old female who is generally speaking quite healthy. She has mild essential hypertension well-controlled on lisinopril 20 mg daily, atenolol 50 mg daily. She also takes baby aspirin daily and vitamin D. She has mild hyperlipidemia but intolerant to statins. They have discussed Zetia but she eats a very good high-quality diet and otherwise is not at any increased risk. She has a lower to moderate level of oxidized LDL. Again eats adequate fruits and vegetables, smaller amounts of meat, fish, salmon, chicken. Avoids all deep-fried foods, junk food, excess sugars and sweets. She maintains a good level of physical activity overall, given age. We have discussed alternatives and perhaps a low-dose of red yeast rice extract could be added but I am not even sure that that is necessary, given her overall low risk situation. Otherwise she is doing well. She has no new specific complaints or issues. We discussed a number of questions today, including cramps. She is still using tonic water and that helps considerably in terms of nocturnal cramps. She does occasionally get some spasms in her hands when she is doing something like peeling potatoes etc. We discussed doing some stretching types of exercises that would probably alleviate (more content not included)... Normal [facility] Lipid Profileon 01-18-2024 Cholesterol [Mass/Vol] 244 mg/dL High 200 [facility] Comment on above: Result Comment: <200 mg/dL Desirable 200-240 mg/dL Borderline >240 mg/dL High Risk Performed By: #### L 500.3400, L500.4100 #### [facility] [address] [facility] [address] Cholesterol in HDL [Mass/Vol] 48 mg/dL Normal [facility] Comment on above: Result Comment: The drugs N-Acetylcysteine and Metamizole may falsely depress this assay. Reference Range HDL <40 mg/dL Low HDL Cholesterol HDL >or= 60 mg/dL High HDL Cholesterol Performed By: #### L 500.3400, L500.4100 #### [facility] [address] [place], [address] Cholesterol in LDL [Mass/Vol] 153 mg/dL High 0-130 [facility] Comment on above: Performed By: #### L 500.3400, L500.4100 #### [facility] [address] [place], [address] Cholesterol in VLDL [Mass/Vol] 43 mg/dL High 5-40 [facility] Comment on above: Performed By: #### L 500.3400, L500.4100 #### [facility] [address] [place], [address] Triglyceride [Mass/Vol] 216 mg/dL High [facility] Comment on above: Result Comment: The drugs N-Acetylcysteine and Metamizole may falsely depress this assay. Serum Triglycerides Reference Interval Normal <150 mg/dL Borderline high 150 - 199 mg/dL High 200 - 499 mg/dL Very High > or = 500 mg/dL Performed By: #### L 500.3400, L500.4100 #### [facility] [address] [place], [address] Liver Profileon 01-18-2024 Albumin [Mass/Vol] 3.3 g/dL Normal 3.2-5.0 [facility] Comment on above: Performed By: #### L 500.3400, L500.4100 #### [facility] [address] [place], [address] ALK P 91 U/L Normal 45-117 [facility] Comment on above: Performed By: #### L 500.3400, L500.4100 #### [facility] [address] [place], [address] ALT [Catalytic activity/Vol] 27 U/L Normal 13-56 [facility] Comment on above: Performed By: #### L 500.3400, L500.4100 #### [facility] [address] [place], [address] AST [Catalytic activity/Vol] 15 U/L Normal 15-37 [facility] Comment on above: Performed By: #### L 500.3400, L500.4100 #### [facility] [address] [place], [address] Bilirubin [Mass/Vol] 0.80 mg/dL Normal 0.20-1.[address] [facility] Comment on above: Result Comment: For patients on eltrombopag therapy, use of Dimension [place] TBIL is not recommended. Performed By: #### L 500.3400, L500.4100 #### [facility] [address] [place], [address] Bilirubin.direct [Mass/Vol] 0.13 mg/dL Normal 0.00-0.30 [facility] Comment on above: Performed By: #### L 500.3400, L500.4100 #### [facility] [address] [place], [address] Globulin (S) [Mass/Vol] 3.8 g/dL Normal 2.2-4.2 [facility] Comment on above: Performed By: #### L 500.3400, L500.4100 #### [facility] [address] [place], [address] T PROT 7.1 g/dL Normal 6.4-8.2 [facility] Comment on above: Performed By: #### L 500.3400, L500.4100 #### [facility] [address] [place], [address] CBC W/Diff, Automatedon 05-3 0-2023 Absolute Lymph 1.30 X10 3/uL Normal 0.83-4.51 [facility] Comment on above: Performed By: #### L 501.9520, L506.1001, L501.9985 #### [facility] [address] [place], [address] Absolute Neut 5.8 X10 3/uL Normal 2.0-7.7 [facility] Comment on above: Performed By: #### L 501.9520, L506.1001, L501.9985 #### [facility] [address] [place], [address] Basophils/100 WBC (Bld) 0.9 % Normal 0-1 [facility] Comment on above: Performed By: #### L 501.9520, L506.1001, L501.9985 #### [facility] [address] [place], [address] Eosinophils/100 WBC (Bld) 1.6 % Normal 0-5 [facility] Comment on above: Performed By: #### L 501.9520, L506.1001, L501.9985 #### [facility] [address] [place], [address] Erythrocyte distribution width (RBC) [Ratio] 12.5 % Normal 11.6-14.6 [facility] Comment on above: Performed By: #### L 501.9520, L506.1001, L501.9985 #### [facility] [address] [place], [address] Hematocrit (Bld) [Volume fraction] 40.9 % Normal 37-47 [facility] Comment on above: Performed By: #### L 501.9520, L506.1001, L501.9985 #### [facility] [address] [place], [address] Hemoglobin (Bld) [Mass/Vol] 12.8 g/dL Normal 12.0-15.0 [facility] Comment on above: Performed By: #### L 501.9520, L506.1001, L501.9985 #### [facility] [address] [place], [address] IG% 0.500 Normal 0.0-0.9 [facility] Comment on above: Result Comment: IG% - Immature Granulocytes (promyelocytes, myelocytes and metamyelocytes) > 1% indicates that a LEFT SHIFT is Present. Performed By: #### L 501.9520, L506.1001, L501.9985 #### [facility] [address] [place], [address] Lymphocytes/100 WBC (Bld) 16.4 % Low 19-41 [facility] Comment on above: Performed By: #### L 501.9520, L506.1001, L501.9985 #### [facility] [address] [place], [address] MCH (RBC) [Entitic mass] 28.6 pg Normal 27.0-32.0 [facility] Comment on above: Performed By: #### L 501.9520, L506.1001, L501.9985 #### [facility] [address] [place], [address] MCHC (RBC) [Mass/Vol] 31.3 g/dL Low 32-36 [facility] Comment on above: Performed By: #### L 501.9520, L506.1001, L501.9985 #### [facility] [address] [place], [address] MCV (RBC) [Entitic vol] 91.5 fL Normal 81-99 [facility] Comment on above: Performed By: #### L 501.9520, L506.1001, L501.9985 #### [facility] [address] [place], [address] Monocytes/100 WBC (Bld) 7.3 % Normal 0-10 [facility] Comment on above: Performed By: #### L 501.9520, L506.1001, L501.9985 #### [facility] [address] [place], [address] Neutrophils/100 WBC (Bld) 73.3 % High 47-70 [facility] Comment on above: Performed By: #### L 501.9520, L506.1001, L501.9985 #### [facility] [address] [place], [address] Nucleated RBC (Bld) [#/Vol] 0 10*3/uL Normal 0-5 [facility] Comment on above: Performed By: #### L 501.9520, L506.1001, L501.9985 #### [facility] [address] [place], [address] Platelet mean volume (Bld) [Entitic vol] 10.6 fL Normal 6.2-12.0 [facility] Comment on above: Performed By: #### L 501.9520, L506.1001, L501.9985 #### [facility] [address] [place], [address] Platelets (Bld) [#/Vol] 329 10*3/uL Normal 150-450 [facility] Comment on above: Performed By: #### L 501.9520, L506.1001, L501.9985 #### [facility] [address] [place], [address] RBC (Bld) [#/Vol] 4.47 10*6/uL Normal 4.2-5.4 [facility] Comment on above: Performed By: #### L 501.9520, L506.1001, L501.9985 #### [facility] [address] [place], [address] RDW SD 41.7 fl Normal 35.1-43.9 [facility] Comment on above: Performed By: #### L 501.9520, L506.1001, L501.9985 #### [facility] [address] [place], [address] WBC (Bld) [#/Vol] 7.9 10*3/uL Normal 4.4-11.0 [facility] Comment on above: Performed By: #### L 501.9520, L506.1001, L501.9985 #### [facility] [address] [place], [address] Comprehensive Metabolic Prof [facility] 11-10-2023 Albumin [Mass/Vol] 3.1 g/dL Low 3.2-5.0 [facility] Comment on above: Performed By: #### L 501.9520, L506.1001, L501.9985 #### [facility] [address] [place], [address] Albumin/Globulin [Mass ratio] 0.9 {ratio} Normal 0.9-2.4 [facility] Comment on above: Performed By: #### L 501.9520, L506.1001, L501.9985 #### [facility] [address] [place], [address] ALK P 82 U/L Normal 45-117 [facility] Comment on above: Performed By: #### L 501.9520, L506.1001, L501.9985 #### [facility] [address] [place], [address] ALT [Catalytic activity/Vol] 20 U/L Normal 13-56 [facility] Comment on above: Performed By: #### L 501.9520, L506.1001, L501.9985 #### [facility] [address] [place], [address] AST [Catalytic activity/Vol] 13 U/L Low 15-37 [facility] Comment on above: Performed By: #### L 501.9520, L506.1001, L501.9985 #### [facility] [address] [place], [address] Bilirubin [Mass/Vol] 0.80 mg/dL Normal 0.20-1.[address] [facility] Comment on above: Result Comment: For patients on eltrombopag therapy, use of Dimension [place] TBIL is not recommended. Performed By: #### L 501.9520, L506.1001, L501.9985 #### [facility] [address] [place], [address] BUN/CRE 23.4 RATIO High 10-20 [facility] Comment on above: Performed By: #### L 501.9520, L506.1001, L501.9985 #### [facility] [address] [place], [address] CA,Total 9.0 mg/dL Normal 8.5-10.1 [facility] Comment on above: Performed By: #### L 501.9520, L506.1001, L501.9985 #### [facility] [address] [place], [address] Chloride [Moles/Vol] 107 mmol/L Normal 98-[address] [facility] Comment on above: Performed By: #### L 501.9520, L506.1001, [id number] #### [facility] [address] [place], [address] CO2 [Moles/Vol] 27.0 mmol/L Normal 21.0-32.0 [facility] Comment on above: Performed By: #### L [id number], L506.1001, [id number] #### [facility] [address] [place], [address] Creatinine [Mass/Vol] 0.77 mg/dL Normal 0.55-1.02 [facility] Comment on above: Result Comment: The validity of the calculated GFR GFRAA in patients over 70 years has not been determined. Clinical correlation is essential. Performed By: #### L [id number], L506.1001, [id number] #### [facility] [address] [place], [address] EST GFR - AA 93 mL/min Normal >60 [facility] Comment on above: Result Comment: Afri can Nepalese GFR Calc Performed By: #### L [id number], L506.1001, [id number] #### [facility] [address] [place], [address] GAP 4 Low 5-15 [facility] Comment on above: Performed By: #### L [id number], L506.1001, [id number] #### [facility] [address] [place], [address] GFR/1.73 sq M.predicted among non-blacks MDRD (S/P/Bld) [Vol rate/Area] 77 mL/min/{1.73_m2} Normal >60 [facility] Comment on above: Result Comment: Non- GFR Calc Performed By: #### L [id number], L506.1001, [id number] #### [facility] [address] [place], [address] Globulin (S) [Mass/Vol] 3.5 g/dL Normal 2.2-4.2 [facility] Comment on above: Performed By: #### L [id number], L506.1001, [id number] #### [facility] [address] [place], [address] Glucose [Mass/Vol] 101 mg/dL Normal 74-106 [facility] Comment on above: Result Comment: Fast ing Glucose result from 100 to 125 mg/dL suggests IMPAIRED HOMEOSTASIS per A.D.A. criteria. Performed By: #### L [id number], L506.1001, [id number] #### [facility] [address] [place], [address] Potassium [Moles/Vol] 4.3 mmol/L Normal 3.5-5.1 [facility] Comment on above: Performed By: #### L [id number], L506.1001, [id number] #### [facility] [address] [place], [address] Sodium [Moles/Vol] 138 mmol/L Normal 136-145 [facility] Comment on above: Performed By: #### L [id number], L506.1001, [id number] #### [facility] [address] [place], [address] T PROT 6.6 g/dL Normal 6.4-8.2 [facility] Comment on above: Performed By: #### L [id number], L506.1001, [id number] #### [facility] [address] [place], [place], [address] Urea nitrogen [Mass/Vol] 18 mg/dL Normal 7-18 [facility] Comment on above: Performed By: #### L [id number], L506.1001, [id number] #### [facility] [address] [place], [place], [address] Absolute lymphocyte countOrd ered By: Cristal Astudillo on 08-19-2023 Lymphocytes Auto (Unsp spec) [#/Vol] 1.37 10*3/uL 0.83-4.51 [facility] Automated lymphocyte count a s percentage of total leukocytesOrdered By: Cristal Astudillo on 08-19-2023 Lymphocytes/100 WBC Auto (Unsp spec) 14.3 % 19-41 [facility] Basophil percentageOrdered B y: Cristal Astudillo on 08-19-2023 Basophils/100 WBC (Bld) 0.9 % 0-1 [facility] Bilirubin [Mass/Vol] 1.10 mg/dL 0.20-1.[address] [facility] Comment on above: For patients on eltr ombopag therapy, use of Dimension [place] TBIL is not recommended. Chloride [Moles/Vol] 106 mmol/L 98-[address] [facility] Eosinophils/100 WBC (Bld) 1.2 % 0-5 [facility] Glucose [Mass/Vol] 103 mg/dL 74-106 [facility] Comment on above: Fasting Glucose resu lt from 100 to 125 mg/dL suggests IMPAIRED HOMEOSTASIS per A.D.A. criteria. Hemoglobin (Bld) [Mass/Vol] 13.7 g/dL 12.0-15.0 [facility] Monocytes/100 WBC (Bld) 6.3 % 0-10 [facility] Neutrophils (Bld) [#/Vol] 7.4 10*3/uL 2.0-7.7 [facility] Neutrophils/100 WBC (Bld) 76.9 % 47-70 [facility] Potassium [Moles/Vol] 4.2 mmol/L 3.5-5.1 [facility] Protein [Mass/Vol] 7.3 g/dL 6.4-8.2 [facility] Sodium [Moles/Vol] 140 mmol/L 136-145 [facility] WBC (Bld) [#/Vol] 9.6 10*3/uL 4.4-11.0 [facility] Determination of erythrocyte mean corpuscular volume (MCV)Ordered By: Cristal Astudillo on 08-19-2023 MCV (RBC) [Entitic vol] 89.6 fL 81-99 [facility] Erythrocyte distribution wid th ratioOrdered By: Cristal Astudillo on 08-19-2023 Erythrocyte distribution width (RBC) [Ratio] 12.3 % 11.6-14.6 [facility] Erythrocyte distribution wid th standard deviationOrdered By: Cristal Astudillo on 08-19-2023 Erythrocyte distribution width (RBC) [Entitic vol] 40.8 fL 35.1-43.9 [facility] Hematocrit Auto (Bld) [Volum e fraction]Ordered By: Cristal Astudillo on 08-19-2023 Hematocrit (Bld) [Volume fraction] 42.9 % 37-47 [facility] Immature granulocytes/100 WB C Auto (Bld)Ordered By: Cristal Astudillo on 08-19-2023 Immature granulocytes/100 WBC (Bld) 0.400 % 0.0-0.9 [facility] Comment on above: IG% - Immature Granu locytes (promyelocytes, myelocytes and metamyelocytes) > 1% indicates that a LEFT SHIFT is Present. Laboratory - Chemistry and C hemistry - challengeOrdered By: Cristal Astudillo on 08-19-2023 Albumin/Globulin [Mass ratio] 0.8 {ratio} 0.9-2.4 [facility] ALP [Catalytic activity/Vol] 98 U/L 45-117 [facility] ALT [Catalytic activity/Vol] 22 U/L 13-56 [facility] CO2 [Moles/Vol] 27.0 mmol/L 21.0-32.0 [facility] Globulin (S) [Mass/Vol] 4.0 g/dL 2.2-4.2 [facility] Urea nitrogen/Creatinine [Mass ratio] 20.7 mg/mg 10-20 [facility] - Hematology and Cell countsOrdered By: Cristal Astudillo on 08-19-2023 MCH (RBC) [Entitic mass] 28.6 pg 27.0-32.0 [facility] MCHC (RBC) [Mass/Vol] 31.9 g/dL 32-36 [facility] Nucleated RBC/100 WBC (Bld) [Ratio] 0 % 0-5 [facility] Platelet mean volume (Bld) [Entitic vol] 10.4 fL 6.2-12.0 [facility] Platelets (Bld) [#/Vol] 399 10*3/uL 150-450 [facility] No Panel InformationOrdered By: Cristal Astudillo on 08-19-2023 Estimated GFR (MDRD) Amer 76 mL/min >60 [facility] Comment on above: GFR Calc Estimated GFR (MDRD) Non-Af Amer 63 mL/min >60 [facility] Comment on above: Non- GFR Calc Vitamin D 25-Hydroxy 55.7 ng/mL [facility] Comment on above: Vitamin D 25(OH) Sta tus Range Deficiency <20 ng/mL (50nmol/L) Insufficiency 20 - 30 ng/mL (50 - 75 nmol/L) Sufficiency 30 - 100 ng/mL (75 - 250 nmol/L) Toxicity >100 ng/mL (>250 nmol/L) RBC Auto (Bld) [#/Vol]Ordere d By: Cristal Astudillo on 08-19-2023 RBC (Bld) [#/Vol] 4.79 10*6/uL 4.2-5.4 [facility] Serum or plasma calcium josué urement (mass/volume)Ordered By: Cristal Astudillo on 08-19-2023 Calcium [Mass/Vol] 9.1 mg/dL 8.5-10.1 [facility] Serum or plasma creatinine m easurement (mass/volume)Ordered By: Cristal Astudillo on 08-19-2023 Creatinine [Mass/Vol] 0.92 mg/dL 0.55-1.02 [facility] Comment on above: The validity of the calculated GFR & GFRAA in patients over 70 years has not been determined. Clinical correlation is essential. Serum or plasma thyroid stim ulating hormone (TSH) measurement (units/volume)Ordered By: Cristal Astudillo on 08-19-2023 TSH Qn 2.40 uIU/mL 0.358-3.74 [facility] Serum or plasma urea nitroge n measurement (mass/volume)Ordered By: Cristal Astudillo on 08-19-2023 Urea nitrogen [Mass/Vol] 19 mg/dL 7-18 [facility] Thin prep Papanicolaou smear with manual screeningOrdered By: Cristal Astudillo on 08-19-2023 Thin prep Papanicolaou smear with manual screening 3.3 g/dL 3.2-5.0 [facility] Thin prep Papanicolaou smear with manual screening 19 U/L 15-37 [facility] Thin prep Papanicolaou smear with manual screening 7 5-15 [facility] Whole blood hemoglobin A1c/t otal hemoglobin ratio (mass fraction)Ordered By: Cristal Astudillo on 08-19-2023 HbA1c (Bld) [Mass fraction] 5.6 % 3.8-5.6 [facility] Comment on above: Normal < 5.7 % Predi abetic 5.7 - 6.4 % Diabetic >or= 6.5 % Please note range changes. Basophil percentageOrdered B y: Sathish Brewster on 07-07-2023 Bilirubin [Mass/Vol] 1.10 mg/dL 0.20-1.[address] [facility] Comment on above: For patients on eltr ombopag therapy, use of Dimension [place] TBIL is not recommended. Cholesterol [Mass/Vol] 237 mg/dL <200 [facility] Comment on above: <200 mg/dL Desirable 200-240 mg/dL Borderline >240 mg/dL High Risk Protein [Mass/Vol] 7.0 g/dL 6.4-8.2 [facility] Triglyceride [Mass/Vol] 158 mg/dL <199 [facility] Comment on above: The drugs N-Acetylcy steine and Metamizole may falsely depress this assay.Serum Triglycerides Reference Interval Normal <150 mg/dL Borderline high 150 - 199 mg/dL High 200 - 499 mg/dL Very High > or = 500 mg/dL Direct bilirubinOrdered By: Sathish Brewster on 07-07-2023 Bilirubin.direct [Mass/Vol] 0.20 mg/dL 0.00-0.30 [facility] High density lipoprotein (HD L) measurementOrdered By: Sathish Brewster on 07-07-2023 Cholesterol in HDL (Body fld) [Mass/Vol] 54 mg/dL >40 [facility] Comment on above: The drugs N-Acetylcy steine and Metamizole may falsely depress this assay. Reference Range HDL <40 mg/dL Low HDL Cholesterol HDL >or= 60 mg/dL High HDL Cholesterol Laboratory - Chemistry and C hemistry - challengeOrdered By: Sathish Brewster on 07-07-2023 ALP [Catalytic activity/Vol] 89 U/L 45-117 [facility] ALT [Catalytic activity/Vol] 29 U/L 13-56 [facility] Globulin (S) [Mass/Vol] 3.7 g/dL 2.2-4.2 [facility] Low density lipoprotein (LDL ) cholesterol measurementOrdered By: Sathish Brewster on 07-07-2023 Cholesterol in LDL (Body fld) [Moles/Vol] 151 mg/dL 0-130 [facility] Thin prep Papanicolaou smear with manual screeningOrdered By: Sathish Brewster on 07-07-2023 Thin prep Papanicolaou smear with manual screening 3.3 g/dL 3.2-5.0 [facility] Thin prep Papanicolaou smear with manual screening 19 U/L 15-37 [facility] Very low density lipoprotein (VLDL) cholesterol measurementOrdered By: Sathish Brewster on 07-07-2023 Cholesterol in VLDL Calc [Moles/Vol] 32 mg/dL 5-40 [facility] Absolute lymphocyte countOrd ered By: Morelia Higgins on 05-18-2023 Lymphocytes Auto (Unsp spec) [#/Vol] 1.20 10*3/uL 0.83-4.51 [facility] Basophil percentageOrdered B y: Morelia Higgins on 05-18-2023 Basophils/100 WBC (Bld) 0.7 % 0-1 [facility] Bilirubin [Mass/Vol] 0.90 mg/dL 0.20-1.[address] [facility] Comment on above: For patients on eltr ombopag therapy, use of Dimension [place] TBIL is not recommended. Chloride [Moles/Vol] 107 mmol/L 98-[address] [facility] Eosinophils/100 WBC (Bld) 1.1 % 0-5 [facility] Glucose [Mass/Vol] 105 mg/dL 74-106 [facility] Comment on above: Fasting Glucose resu lt from 100 to 125 mg/dL suggests IMPAIRED HOMEOSTASIS per A.D.A. criteria. Neutrophils (Bld) [#/Vol] 6.9 10*3/uL 2.0-7.7 [facility] Neutrophils/100 WBC (Bld) 77.8 % 47-70 [facility] Potassium [Moles/Vol] 3.7 mmol/L 3.5-5.1 [facility] Protein [Mass/Vol] 6.8 g/dL 6.4-8.2 [facility] Sodium [Moles/Vol] 139 mmol/L 136-145 [facility] WBC (Bld) [#/Vol] 8.9 10*3/uL 4.4-11.0 [facility] Blood erythrocytes count (nu mber/volume)Ordered By: Morelia Higgins on 05-18-2023 RBC (Bld) [#/Vol] 4.29 10*6/uL 4.2-5.4 [facility] Blood hemoglobin measurement (mass/volume)Ordered By: Morelia Higgins on 05-18-2023 Hemoglobin (Bld) [Mass/Vol] 12.9 g/dL 12.0-15.0 [facility] Blood lymphocytes/100 leukoc ytesOrdered By: Morelia Higgins on 05-18-2023 Lymphocytes/100 WBC (Bld) 13.5 % 19-41 [facility] Blood monocytes/100 leukocyt esOrdered By: Morelia Higgins on 05-18-2023 Monocytes/100 WBC (Bld) 6.5 % 0-10 [facility] Blood platelet mean volumeOr dered By: Morelia Higgins on 05-18-2023 Platelet mean volume (Bld) [Entitic vol] 10.5 fL 6.2-12.0 [facility] Determination of erythrocyte mean corpuscular volume (MCV)Ordered By: Morelia Higgins on 05-18-2023 MCV (RBC) [Entitic vol] 91.4 fL 81-99 [facility] Hematocrit Auto (Bld) [Volum e fraction]Ordered By: Morelia Higgins on 05-18-2023 Hematocrit (Bld) [Volume fraction] 39.2 % 37-47 [facility] - Chemistry and C hemistry - challengeOrdered By: Morelia Higgins on 05-18-2023 ALP [Catalytic activity/Vol] 78 U/L 45-117 [facility] ALT [Catalytic activity/Vol] 33 U/L 13-56 [facility] CO2 [Moles/Vol] 30.0 mmol/L 21.0-32.0 [facility] Globulin (S) [Mass/Vol] 3.6 g/dL 2.2-4.2 [facility] Urea nitrogen/Creatinine [Mass ratio] 25.4 mg/mg 10-20 [facility] - Hematology and Cell countsOrdered By: Morelia Higgins on 05-18-2023 Erythrocyte distribution width (RBC) [Entitic vol] 40.4 fL 35.1-43.9 [facility] Erythrocyte distribution width (RBC) [Ratio] 12.1 % 11.6-14.6 [facility] Immature granulocytes/100 WBC (Bld) 0.400 % 0.0-0.9 [facility] Comment on above: IG% - Immature Granu locytes (promyelocytes, myelocytes and metamyelocytes) > 1% indicates that a LEFT SHIFT is Present. MCH (RBC) [Entitic mass] 30.1 pg 27.0-32.0 [facility] Nucleated RBC/100 WBC (Bld) [Ratio] 0 % 0-5 [facility] MCHC Auto (RBC) [Mass/Vol]Or dered By: Morelia Higgins on 05-18-2023 MCHC (RBC) [Mass/Vol] 32.9 g/dL 32-36 [facility] No Panel InformationOrdered By: Morelia Higgins on 05-18-2023 Estimated GFR (MDRD) Amer 90 mL/min >60 [facility] Comment on above: GFR Calc Estimated GFR (MDRD) Non-Af Amer 75 mL/min >60 [facility] Comment on above: Non- GFR Calc Platelets bldOrdered By: Niels Higgins on 05-18-2023 Platelets (Bld) [#/Vol] 335 10*3/uL 150-450 [facility] Serum or plasma albumin josué urement (mass/volume)Ordered By: Morelia Higgins on 05-18-2023 Albumin [Mass/Vol] 3.2 g/dL 3.2-5.0 [facility] Serum or plasma albumin/glob ulin mass ratioOrdered By: Morelia Higgins on 05-18-2023 Albumin/Globulin [Mass ratio] 0.9 {ratio} 0.9-2.4 [facility] Serum or plasma calcium josué urement (mass/volume)Ordered By: Morelia Higgins on 05-18-2023 Calcium [Mass/Vol] 9.0 mg/dL 8.5-10.1 [facility] Serum or plasma creatinine m easurement (mass/volume)Ordered By: Morelia Higgins on 05-18-2023 Creatinine [Mass/Vol] 0.79 mg/dL 0.55-1.02 [facility] Comment on above: The validity of the calculated GFR & GFRAA in patients over 70 years has not been determined. Clinical correlation is essential. Serum or plasma urea nitroge n measurement (mass/volume)Ordered By: Morelia Higgins on 05-18-2023 Urea nitrogen [Mass/Vol] 20 mg/dL 7-18 [facility] Thin prep Papanicolaou smear with manual screeningOrdered By: Morelia Higgins on 05-18-2023 Thin prep Papanicolaou smear with manual screening 19 U/L 15-37 [facility] Thin prep Papanicolaou smear with manual screening 2 5-15 [facility] Absolute lymphocyte countOrd ered By: Sathish Brewster on 03-22-2023 Lymphocytes Auto (Unsp spec) [#/Vol] 1.50 10*3/uL 0.83-4.51 [facility] Basophil percentageOrdered B y: Sathish Brewster on 03-22-2023 Basophils/100 WBC (Bld) 1.0 % 0-1 [facility] Eosinophils/100 WBC (Bld) 1.3 % 0-5 [facility] Neutrophils (Bld) [#/Vol] 5.5 10*3/uL 2.0-7.7 [facility] Neutrophils/100 WBC (Bld) 71.1 % 47-70 [facility] WBC (Bld) [#/Vol] 7.8 10*3/uL 4.4-11.0 [facility] Bilirubin [Mass/Vol] 0.80 mg/dL 0.20-1.[address] [facility] Comment on above: For patients on eltr ombopag therapy, use of Dimension [place] TBIL is not recommended. Chloride [Moles/Vol] 106 mmol/L 98-[address] [facility] Cholesterol [Mass/Vol] 248 mg/dL <200 [facility] Comment on above: <200 mg/dL Desirable 200-240 mg/dL Borderline >240 mg/dL High Risk Glucose [Mass/Vol] 117 mg/dL 74-106 [facility] Comment on above: Fasting Glucose resu lt from 100 to 125 mg/dL suggests IMPAIRED HOMEOSTASIS per A.D.A. criteria. Potassium [Moles/Vol] 4.2 mmol/L 3.5-5.1 [facility] Protein [Mass/Vol] 6.9 g/dL 6.4-8.2 [facility] Sodium [Moles/Vol] 140 mmol/L 136-145 [facility] Triglyceride [Mass/Vol] 137 mg/dL <199 [facility] Comment on above: The drugs N-Acetylcy steine and Metamizole may falsely depress this assay.Serum Triglycerides Reference Interval Normal <150 mg/dL Borderline high 150 - 199 mg/dL High 200 - 499 mg/dL Very High > or = 500 mg/dL Blood erythrocytes count (nu mber/volume)Ordered By: Sathish Brewster on 03-22-2023 RBC (Bld) [#/Vol] 4.55 10*6/uL 4.2-5.4 [facility] Blood hemoglobin measurement (mass/volume)Ordered By: Sathish Brewster on 03-22-2023 Hemoglobin (Bld) [Mass/Vol] 13.3 g/dL 12.0-15.0 [facility] Blood lymphocytes/100 leukoc ytesOrdered By: Sathish Brewster on 03-22-2023 Lymphocytes/100 WBC (Bld) 19.3 % 19-41 [facility] Blood monocytes/100 leukocyt esOrdered By: Sathish Brewster on 03-22-2023 Monocytes/100 WBC (Bld) 6.7 % 0-10 [facility] Blood platelet mean volumeOr dered By: Sathish Brewster on 03-22-2023 Platelet mean volume (Bld) [Entitic vol] 10.4 fL 6.2-12.0 [facility] Determination of erythrocyte mean corpuscular volume (MCV)Ordered By: Sathish Brewster on 03-22-2023 MCV (RBC) [Entitic vol] 92.5 fL 81-99 [facility] Direct bilirubinOrdered By: Sathish Brewster on 03-22-2023 Bilirubin.direct [Mass/Vol] 0.15 mg/dL 0.00-0.30 [facility] Hematocrit Auto (Bld) [Volum e fraction]Ordered By: Sathish Brewster on 03-22-2023 Hematocrit (Bld) [Volume fraction] 42.1 % 37-47 [facility] - Chemistry and C hemistry - challengeOrdered By: Sathish Brewster on 03-22-2023 ALP [Catalytic activity/Vol] 80 U/L 45-117 [facility] ALT [Catalytic activity/Vol] 42 U/L 13-56 [facility] CO2 [Moles/Vol] 32.0 mmol/L 21.0-32.0 [facility] Globulin (S) [Mass/Vol] 3.7 g/dL 2.2-4.2 [facility] Urea nitrogen/Creatinine [Mass ratio] 23.0 mg/mg 10-20 [facility] - Hematology and Cell countsOrdered By: Sathish Brewster on 03-22-2023 Erythrocyte distribution width (RBC) [Entitic vol] 43.6 fL 35.1-43.9 [facility] Erythrocyte distribution width (RBC) [Ratio] 12.9 % 11.6-14.6 [facility] Immature granulocytes/100 WBC (Bld) 0.600 % 0.0-0.9 [facility] Comment on above: IG% - Immature Granu locytes (promyelocytes, myelocytes and metamyelocytes) > 1% indicates that a LEFT SHIFT is Present. MCH (RBC) [Entitic mass] 29.2 pg 27.0-32.0 [facility] Nucleated RBC/100 WBC (Bld) [Ratio] 0 % 0-5 [facility] Auto (RBC) [Mass/Vol]Or dered By: Sathish Brewster on 03-22-2023 MCHC (RBC) [Mass/Vol] 31.6 g/dL 32-36 [facility] No Panel InformationOrdered By: Sathish Brewster on 03-22-2023 Estimated GFR (MDRD) Amer 91 mL/min >60 [facility] Comment on above: GFR Calc Estimated GFR (MDRD) Non-Af Amer 75 mL/min >60 [facility] Comment on above: Non- GFR Calc Platelets bldOrdered By: Blair Brewster on 03-22-2023 Platelets (Bld) [#/Vol] 347 10*3/uL 150-450 [facility] Serum or plasma albumin josué urement (mass/volume)Ordered By: Sathish Brewster on 03-22-2023 Albumin [Mass/Vol] 3.2 g/dL 3.2-5.0 [facility] Serum or plasma albumin/glob ulin mass ratioOrdered By: Sathish Brewster on 03-22-2023 Albumin/Globulin [Mass ratio] 0.9 {ratio} 0.9-2.4 [facility] Serum or plasma calcium josué urement (mass/volume)Ordered By: Sathish Brewster on 03-22-2023 Calcium [Mass/Vol] 9.2 mg/dL 8.5-10.1 [facility] Serum or plasma cholesterol in HDL measurement (mass/volume)Ordered By: Sathish Brewster on 03-22-2023 Cholesterol in HDL [Mass/Vol] 51 mg/dL >40 [facility] Comment on above: The drugs N-Acetylcy steine and Metamizole may falsely depress this assay. Reference Range HDL <40 mg/dL Low HDL Cholesterol HDL >or= 60 mg/dL High HDL Cholesterol Serum or plasma cholesterol in VLDL measurement (mass/volume)Ordered By: Sathish Brewster on 03-22-2023 Cholesterol in VLDL [Mass/Vol] 27 mg/dL 5-40 [facility] Serum or plasma creatinine m easurement (mass/volume)Ordered By: Sathish Brewster on 10-10-2023 Creatinine [Mass/Vol] 0.78 mg/dL 0.55-1.02 [facility] Comment on above: The validity of the calculated GFR & GFRAA in patients over 70 years has not been determined. Clinical correlation is essential. Serum or plasma low density lipoprotein (LDL) cholesterol measurement (mass/volume)Ordered By: Sathish Brewster on 03-22-2023 Cholesterol in LDL [Mass/Vol] 170 mg/dL 0-130 [facility] Serum or plasma urea nitroge n measurement (mass/volume)Ordered By: Sathish Brewster on 03-22-2023 Urea nitrogen [Mass/Vol] 18 mg/dL 7-18 [facility] Thin prep Papanicolaou smear with manual screeningOrdered By: Sathish Brewster on 03-22-2023 Thin prep Papanicolaou smear with manual screening 21 U/L 15-37 [facility] Thin prep Papanicolaou smear with manual screening 2 5-15 [facility] Absolute lymphocyte countOrd ered By: Cristal Astudillo on 01-11-2023 Lymphocytes Auto (Unsp spec) [#/Vol] 1.36 10*3/uL 0.83-4.51 [facility] Basophil percentageOrdered B y: Cristal Astudillo on 01-11-2023 Basophils/100 WBC (Bld) 0.8 % 0-1 [facility] Bilirubin [Mass/Vol] 1.20 mg/dL 0.20-1.[address] [facility] Comment on above: For patients on eltr ombopag therapy, use of Dimension [place] TBIL is not recommended. Chloride [Moles/Vol] 105 mmol/L 98-[address] [facility] Eosinophils/100 WBC (Bld) 2.2 % 0-5 [facility] Glucose [Mass/Vol] 107 mg/dL 74-106 [facility] Comment on above: Fasting Glucose resu lt from 100 to 125 mg/dL suggests IMPAIRED HOMEOSTASIS per A.D.A. criteria. Neutrophils (Bld) [#/Vol] 6.2 10*3/uL 2.0-7.7 [facility] Neutrophils/100 WBC (Bld) 73.1 % 47-70 [facility] Potassium [Moles/Vol] 4.0 mmol/L 3.5-5.1 [facility] Protein [Mass/Vol] 6.9 g/dL 6.4-8.2 [facility] Sodium [Moles/Vol] 138 mmol/L 136-145 [facility] WBC (Bld) [#/Vol] 8.5 10*3/uL 4.4-11.0 [facility] Basophil percentageOrdered B y: Marcial Moe on 01-11-2023 Cholesterol [Mass/Vol] 167 mg/dL <200 [facility] Comment on above: <200 mg/dL Desirable 200-240 mg/dL Borderline >240 mg/dL High Risk Triglyceride [Mass/Vol] 114 mg/dL <199 [facility] Comment on above: The drugs N-Acetylcy steine and Metamizole may falsely depress this assay.Serum Triglycerides Reference Interval Normal <150 mg/dL Borderline high 150 - 199 mg/dL High 200 - 499 mg/dL Very High > or = 500 mg/dL Blood erythrocytes count (nu mber/volume)Ordered By: Cristal Astudillo on 01-11-2023 RBC (Bld) [#/Vol] 4.43 10*6/uL 4.2-5.4 [facility] Blood hemoglobin measurement (mass/volume)Ordered By: Cristal Astudillo on 01-11-2023 Hemoglobin (Bld) [Mass/Vol] 12.8 g/dL 12.0-15.0 [facility] Blood lymphocytes/100 leukoc ytesOrdered By: Cristal Astudillo on 01-11-2023 Lymphocytes/100 WBC (Bld) 16.0 % 19-41 [facility] Blood monocytes/100 leukocyt esOrdered By: Cristal Astudillo on 01-11-2023 Monocytes/100 WBC (Bld) 7.4 % 0-10 [facility] Blood platelet mean volumeOr dered By: Cristal Astudillo on 01-11-2023 Platelet mean volume (Bld) [Entitic vol] 10.7 fL 6.2-12.0 [facility] Determination of erythrocyte mean corpuscular volume (MCV)Ordered By: Cristal Astudillo on 01-11-2023 MCV (RBC) [Entitic vol] 91.9 fL 81-99 [facility] Direct bilirubinOrdered By: Cristal Astudillo on 01-11-2023 Bilirubin.direct [Mass/Vol] 0.25 mg/dL 0.00-0.30 [facility] Hematocrit Auto (Bld) [Volum e fraction]Ordered By: Cristal Astudillo on 01-11-2023 Hematocrit (Bld) [Volume fraction] 40.7 % 37-47 [facility] Laboratory - Chemistry and C hemistry - challengeOrdered By: Cristal Astudillo on 01-11-2023 ALP [Catalytic activity/Vol] 78 U/L 45-117 [facility] ALT [Catalytic activity/Vol] 36 U/L 13-56 [facility] CO2 [Moles/Vol] 31.0 mmol/L 21.0-32.0 [facility] Globulin (S) [Mass/Vol] 3.7 g/dL 2.2-4.2 [facility] Magnesium [Mass/Vol] 2.3 mg/dL 1.6-2.[address] [facility] Urea nitrogen/Creatinine [Mass ratio] 23.4 mg/mg 10-20 [facility] Laboratory - Hematology and Cell countsOrdered By: Cristal Astudillo on 01-11-2023 Erythrocyte distribution width (RBC) [Entitic vol] 41.5 fL 35.1-43.9 [facility] Erythrocyte distribution width (RBC) [Ratio] 12.3 % 11.6-14.6 [facility] Immature granulocytes/100 WBC (Bld) 0.500 % 0.0-0.9 [facility] Comment on above: IG% - Immature Granu locytes (promyelocytes, myelocytes and metamyelocytes) > 1% indicates that a LEFT SHIFT is Present. MCH (RBC) [Entitic mass] 28.9 pg 27.0-32.0 [facility] Nucleated RBC/100 WBC (Bld) [Ratio] 0 % 0-5 [facility] MCHC Auto (RBC) [Mass/Vol]Or dered By: Cristal Astudillo on 01-11-2023 MCHC (RBC) [Mass/Vol] 31.4 g/dL 32-36 [facility] No Panel InformationOrdered By: Cristal Astudillo on 01-11-2023 Estimated GFR (MDRD) Amer 82 mL/min >60 [facility] Comment on above: GFR Calc Estimated GFR (MDRD) Non-Af Amer 68 mL/min >60 [facility] Comment on above: Non- GFR Calc Thyroid Stimulating Hormone (TSH) 2.40 uIU/mL 0.358-3.74 [facility] Vitamin D 25-Hydroxy 72.8 ng/mL [facility] Comment on above: Vitamin D 25(OH) Sta tus Range Deficiency <20 ng/mL (50nmol/L) Insufficiency 20 - 30 ng/mL (50 - 75 nmol/L) Sufficiency 30 - 100 ng/mL (75 - 250 nmol/L) Toxicity >100 ng/mL (>250 nmol/L) Platelets bldOrdered By: Alize Astudillo on 01-11-2023 Platelets (Bld) [#/Vol] 338 10*3/uL 150-450 [facility] Serum or plasma albumin josué urement (mass/volume)Ordered By: Cristal Astudillo on 01-11-2023 Albumin [Mass/Vol] 3.2 g/dL 3.2-5.0 [facility] Serum or plasma albumin/glob ulin mass ratioOrdered By: Cristal Astudillo on 01-11-2023 Albumin/Globulin [Mass ratio] 0.9 {ratio} 0.9-2.4 [facility] Serum or plasma calcium josué urement (mass/volume)Ordered By: Cristal Astudillo on 01-11-2023 Calcium [Mass/Vol] 9.0 mg/dL 8.5-10.1 [facility] Serum or plasma cholesterol in HDL measurement (mass/volume)Ordered By: Marcial Moe on 01-11-2023 Cholesterol in HDL [Mass/Vol] 54 mg/dL >40 [facility] Comment on above: The drugs N-Acetylcy steine and Metamizole may falsely depress this assay. Reference Range HDL <40 mg/dL Low HDL Cholesterol HDL >or= 60 mg/dL High HDL Cholesterol Serum or plasma cholesterol in VLDL measurement (mass/volume)Ordered By: Marcial Moe on 01-11-2023 Cholesterol in VLDL [Mass/Vol] 23 mg/dL 5-40 [facility] Serum or plasma creatinine m easurement (mass/volume)Ordered By: Cristal Astudillo on 01-11-2023 Creatinine [Mass/Vol] 0.86 mg/dL 0.55-1.02 [facility] Comment on above: The validity of the calculated GFR & GFRAA in patients over 70 years has not been determined. Clinical correlation is essential. Serum or plasma low density lipoprotein (LDL) cholesterol measurement (mass/volume)Ordered By: Marcial Moe on 01-11-2023 Cholesterol in LDL [Mass/Vol] 90 mg/dL 0-130 [facility] Serum or plasma urea nitroge n measurement (mass/volume)Ordered By: Cristal Astudillo on 01-11-2023 Urea nitrogen [Mass/Vol] 20 mg/dL 7-18 [facility] Thin prep Papanicolaou smear with manual screeningOrdered By: Cristal Astudillo on 01-11-2023 Thin prep Papanicolaou smear with manual screening 20 U/L 15-37 [facility] Thin prep Papanicolaou smear with manual screening 2 5-15 [facility] Absolute lymphocyte countOrd ered By: Morelia Higgins on 11-22-2022 Lymphocytes Auto (Unsp spec) [#/Vol] 1.17 10*3/uL 0.83-4.51 [facility] Basophil percentageOrdered B y: Morelia Higgins on 11-22-2022 Basophils/100 WBC (Bld) 0.9 % 0-1 [facility] Bilirubin [Mass/Vol] 0.60 mg/dL 0.20-1.[address] [facility] Comment on above: For patients on eltr ombopag therapy, use of Dimension [place] TBIL is not recommended. Chloride [Moles/Vol] 108 mmol/L 98-[address] [facility] Eosinophils/100 WBC (Bld) 4.7 % 0-5 [facility] Glucose [Mass/Vol] 106 mg/dL 74-106 [facility] Comment on above: Fasting Glucose resu lt from 100 to 125 mg/dL suggests IMPAIRED HOMEOSTASIS per A.D.A. criteria. Neutrophils (Bld) [#/Vol] 6.6 10*3/uL 2.0-7.7 [facility] Neutrophils/100 WBC (Bld) 71.5 % 47-70 [facility] Potassium [Moles/Vol] 4.4 mmol/L 3.5-5.1 [facility] Protein [Mass/Vol] 6.8 g/dL 6.4-8.2 [facility] Sodium [Moles/Vol] 139 mmol/L 136-145 [facility] WBC (Bld) [#/Vol] 9.3 10*3/uL 4.4-11.0 [facility] Blood erythrocytes count (nu mber/volume)Ordered By: Morelia Higgins on 11-22-2022 RBC (Bld) [#/Vol] 4.49 10*6/uL 4.2-5.4 [facility] Blood hemoglobin measurement (mass/volume)Ordered By: Morelia Higgins on 11-22-2022 Hemoglobin (Bld) [Mass/Vol] 12.9 g/dL 12.0-15.0 [facility] Blood lymphocytes/100 leukoc ytesOrdered By: Morelia Higgins on 11-22-2022 Lymphocytes/100 WBC (Bld) 12.6 % 19-41 [facility] Blood monocytes/100 leukocyt esOrdered By: Morelia Higgins on 11-22-2022 Monocytes/100 WBC (Bld) 9.7 % 0-10 [facility] Blood platelet mean volumeOr dered By: Morelia Higgins on 11-22-2022 Platelet mean volume (Bld) [Entitic vol] 10.5 fL 6.2-12.0 [facility] Determination of erythrocyte mean corpuscular volume (MCV)Ordered By: Morelia Higgins on 11-22-2022 MCV (RBC) [Entitic vol] 91.5 fL 81-99 [facility] Hematocrit Auto (Bld) [Volum e fraction]Ordered By: Morelia Higgins on 11-22-2022 Hematocrit (Bld) [Volume fraction] 41.1 % 37-47 [facility] Laboratory - Chemistry and C hemistry - challengeOrdered By: Morelia Higgins on 11-22-2022 ALP [Catalytic activity/Vol] 81 U/L 45-117 [facility] ALT [Catalytic activity/Vol] 25 U/L 13-56 [facility] CO2 [Moles/Vol] 28.0 mmol/L 21.0-32.0 [facility] Globulin (S) [Mass/Vol] 3.6 g/dL 2.2-4.2 [facility] Urea nitrogen/Creatinine [Mass ratio] 28.1 mg/mg 10-20 [facility] Laboratory - Hematology and Cell countsOrdered By: Morelia Higgins on 11-22-2022 Erythrocyte distribution width (RBC) [Entitic vol] 41.7 fL 35.1-43.9 [facility] Erythrocyte distribution width (RBC) [Ratio] 12.5 % 11.6-14.6 [facility] Immature granulocytes/100 WBC (Bld) 0.600 % 0.0-0.9 [facility] Comment on above: IG% - Immature Granu locytes (promyelocytes, myelocytes and metamyelocytes) > 1% indicates that a LEFT SHIFT is Present. MCH (RBC) [Entitic mass] 28.7 pg 27.0-32.0 [facility] Nucleated RBC/100 WBC (Bld) [Ratio] 0 % 0-5 [facility] MCHC Auto (RBC) [Mass/Vol]Or dered By: Morelia Higgins on 11-22-2022 MCHC (RBC) [Mass/Vol] 31.4 g/dL 32-36 [facility] No Panel InformationOrdered By: Morelia Higgins on 11-22-2022 Estimated GFR (MDRD) Amer 79 mL/min >60 [facility] Comment on above: GFR Calc Estimated GFR (MDRD) Non-Af Amer 65 mL/min >60 [facility] Comment on above: Non- GFR Calc Platelets bldOrdered By: Niels Higgins on 11-22-2022 Platelets (Bld) [#/Vol] 342 10*3/uL 150-450 [facility] Serum or plasma albumin josué urement (mass/volume)Ordered By: Morelia Higgins on 11-22-2022 Albumin [Mass/Vol] 3.2 g/dL 3.2-5.0 [facility] Serum or plasma albumin/glob ulin mass ratioOrdered By: Morelia Higgins on 11-22-2022 Albumin/Globulin [Mass ratio] 0.9 {ratio} 0.9-2.4 [facility] Serum or plasma calcium josué urement (mass/volume)Ordered By: Morelia Higgins on 11-22-2022 Calcium [Mass/Vol] 8.8 mg/dL 8.5-10.1 [facility] Serum or plasma creatinine m easurement (mass/volume)Ordered By: Morelia Higgins on 11-22-2022 Creatinine [Mass/Vol] 0.89 mg/dL 0.55-1.02 [facility] Comment on above: The validity of the calculated GFR & GFRAA in patients over 70 years has not been determined. Clinical correlation is essential. Serum or plasma urea nitroge n measurement (mass/volume)Ordered By: Morelia Higgins on 11-22-2022 Urea nitrogen [Mass/Vol] 25 mg/dL 7-18 [facility] Thin prep Papanicolaou smear with manual screeningOrdered By: Moreliasusana Higgins on 11-22-2022 Thin prep Papanicolaou smear with manual screening 15 U/L 15-37 [facility] Thin prep Papanicolaou smear with manual screening 3 5-15 [facility] Laboratory - Chemistry and C hemistry - challengeon 08-04-2022 Bilirubin Ql (U) Negative [facility] Glucose Ql (U) Negative [facility] Ketones Ql (U) Trace (5) [facility] pH (U) 5.0 [pH] [facility] Specific gravity (U) [Rel density] 1.010 [facility] Urobilinogen (U) [Mass/Vol] 0.6468310 mg/dL [facility] Laboratory - Hematology and Cell countson 08-04-2022 Hemoglobin Ql (U) Negative [facility] Laboratory - Specimen inform ationon 08-04-2022 Clarity (U) Clear [facility] Color (U) Colorless [facility] Laboratory - Urinalysison Nitrite Ql (U) Negative [facility] Protein Ql (U) Negative [facility] No Panel Informationon 08-04 Urine Leukocytes Negatve [facility] Absolute lymphocyte countOrd ered By: Dr. Astudillo on 07-14-2022 Lymphocytes Auto (Unsp spec) [#/Vol] 1.20 10*3/uL 0.83-4.51 [facility] Basophil percentageOrdered B y: Dr. Astudillo on 07-14-2022 Basophils/100 WBC (Bld) 0.7 % 0-1 [facility] Bilirubin [Mass/Vol] 0.90 mg/dL 0.20-1.[address] [facility] Comment on above: For patients on eltr ombopag therapy, use of Dimension [place] TBIL is not recommended. Chloride [Moles/Vol] 106 mmol/L 98-[address] [facility] Eosinophils/100 WBC (Bld) 1.0 % 0-5 [facility] Glucose [Mass/Vol] 121 mg/dL 74-106 [facility] Comment on above: Fasting Glucose resu lt from 100 to 125 mg/dL suggests IMPAIRED HOMEOSTASIS per A.D.A. criteria. Neutrophils (Bld) [#/Vol] 7.5 10*3/uL 2.0-7.7 [facility] Neutrophils/100 WBC (Bld) 79.0 % 47-70 [facility] Potassium [Moles/Vol] 4.3 mmol/L 3.5-5.1 [facility] Protein [Mass/Vol] 7.1 g/dL 6.4-8.2 [facility] Sodium [Moles/Vol] 140 mmol/L 136-145 [facility] WBC (Bld) [#/Vol] 9.4 10*3/uL 4.4-11.0 [facility] Basophil percentageOrdered B y: Dr. Moe on 07-14-2022 Cholesterol [Mass/Vol] 156 mg/dL <200 [facility] Comment on above: <200 mg/dL Desirable 200-240 mg/dL Borderline >240 mg/dL High Risk Triglyceride [Mass/Vol] 87 mg/dL <199 [facility] Comment on above: The drugs N-Acetylcy steine and Metamizole may falsely depress this assay.Serum Triglycerides Reference Interval Normal <150 mg/dL Borderline high 150 - 199 mg/dL High 200 - 499 mg/dL Very High > or = 500 mg/dL Blood erythrocytes count (nu mber/volume)Ordered By: Dr. Astudillo on 07-14-2022 RBC (Bld) [#/Vol] 4.70 10*6/uL 4.2-5.4 [facility] Blood hemoglobin measurement (mass/volume)Ordered By: Dr. Astudillo on 07-14-2022 Hemoglobin (Bld) [Mass/Vol] 13.4 g/dL 12.0-15.0 [facility] Blood lymphocytes/100 leukoc ytesOrdered By: Dr. Astudillo on 07-14-2022 Lymphocytes/100 WBC (Bld) 12.7 % 19-41 [facility] Blood monocytes/100 leukocyt esOrdered By: Dr. Astudillo on 07-14-2022 Monocytes/100 WBC (Bld) 6.2 % 0-10 [facility] Blood platelet mean volumeOr dered By: Dr. Astudillo on 07-14-2022 Platelet mean volume (Bld) [Entitic vol] 10.0 fL 6.2-12.0 [facility] Determination of erythrocyte mean corpuscular volume (MCV)Ordered By: Dr. Astudillo on 07-14-2022 MCV (RBC) [Entitic vol] 90.0 fL 81-99 [facility] Direct bilirubinOrdered By: Dr. Moe on 07-14-2022 Bilirubin.direct [Mass/Vol] 0.17 mg/dL 0.00-0.30 [facility] Hematocrit Auto (Bld) [Volum e fraction]Ordered By: Dr. Astudillo on 07-14-2022 Hematocrit (Bld) [Volume fraction] 42.3 % 37-47 [facility] Laboratory - Chemistry and C hemistry - challengeOrdered By: Dr. Astudillo on 07-14-2022 ALP [Catalytic activity/Vol] 80 U/L 45-117 [facility] ALT [Catalytic activity/Vol] 29 U/L 13-56 [facility] CO2 [Moles/Vol] 31.0 mmol/L 21.0-32.0 [facility] Globulin (S) [Mass/Vol] 3.7 g/dL 2.2-4.2 [facility] Urea nitrogen/Creatinine [Mass ratio] 19.2 mg/mg 10-20 [facility] Laboratory - Hematology and Cell countsOrdered By: Dr. Astudillo on 07-14-2022 Erythrocyte distribution width (RBC) [Entitic vol] 39.5 fL 35.1-43.9 [facility] Erythrocyte distribution width (RBC) [Ratio] 12.0 % 11.6-14.6 [facility] Immature granulocytes/100 WBC (Bld) 0.400 % 0.0-0.9 [facility] Comment on above: IG% - Immature Granu locytes (promyelocytes, myelocytes and metamyelocytes) > 1% indicates that a LEFT SHIFT is Present. MCH (RBC) [Entitic mass] 28.5 pg 27.0-32.0 [facility] Nucleated RBC/100 WBC (Bld) [Ratio] 0 % 0-5 [facility] MCHC Auto (RBC) [Mass/Vol]Or dered By: Dr. Astudillo on 07-14-2022 MCHC (RBC) [Mass/Vol] 31.7 g/dL 32-36 [facility] No Panel InformationOrdered By: Dr. Astudillo on 07-14-2022 Estimated GFR (MDRD) Amer 74 mL/min >60 [facility] Comment on above: GFR Calc Estimated GFR (MDRD) Non-Af Amer 61 mL/min >60 [facility] Comment on above: Non- GFR Calc Platelets bldOrdered By: Dr. Astudillo on 07-14-2022 Platelets (Bld) [#/Vol] 379 10*3/uL 150-450 [facility] Serum or plasma albumin josué urement (mass/volume)Ordered By: Dr. Astudillo on 07-14-2022 Albumin [Mass/Vol] 3.4 g/dL 3.2-5.0 [facility] Serum or plasma albumin/glob ulin mass ratioOrdered By: Dr. Astudillo on 07-14-2022 Albumin/Globulin [Mass ratio] 0.9 {ratio} 0.9-2.4 [facility] Serum or plasma calcium josué urement (mass/volume)Ordered By: Dr. Astudillo on 07-14-2022 Calcium [Mass/Vol] 9.3 mg/dL 8.5-10.1 [facility] Serum or plasma cholesterol in HDL measurement (mass/volume)Ordered By: Dr. Moe on 02-01-2023 Cholesterol in HDL [Mass/Vol] 55 mg/dL >40 [facility] Comment on above: The drugs N-Acetylcy steine and Metamizole may falsely depress this assay. Reference Range HDL <40 mg/dL Low HDL Cholesterol HDL >or= 60 mg/dL High HDL Cholesterol Serum or plasma cholesterol in VLDL measurement (mass/volume)Ordered By: Dr. Moe on 07-14-2022 Cholesterol in VLDL [Mass/Vol] 17 mg/dL 5-40 [facility] Serum or plasma creatinine m easurement (mass/volume)Ordered By: Dr. Astudillo on 07-14-2022 Creatinine [Mass/Vol] 0.94 mg/dL 0.55-1.02 [facility] Comment on above: The validity of the calculated GFR & GFRAA in patients over 70 years has not been determined. Clinical correlation is essential. Serum or plasma low density lipoprotein (LDL) cholesterol measurement (mass/volume)Ordered By: Dr. Moe on 07-14-2022 Cholesterol in LDL [Mass/Vol] 84 mg/dL 0-130 [facility] Serum or plasma urea nitroge n measurement (mass/volume)Ordered By: Dr. Astudillo on 07-14-2022 Urea nitrogen [Mass/Vol] 18 mg/dL 7-18 [facility] Thin prep Papanicolaou smear with manual screeningOrdered By: Dr. Astudillo on 07-14-2022 Thin prep Papanicolaou smear with manual screening 20 U/L 15-37 [facility] Thin prep Papanicolaou smear with manual screening 3 5-15 [facility] Whole blood hemoglobin A1c/t otal hemoglobin ratio (mass fraction)Ordered By: Dr. Astudillo on 07-14-2022 HbA1c (Bld) [Mass fraction] 5.9 % 3.8-5.6 [facility] Comment on above: Normal < 5.7 % Predi abetic 5.7 - 6.4 % Diabetic >or= 6.5 % Please note range changes. Culture, urineOrdered By: Dr Garo Astudillo on 05-26-2022 Bacteria identified Cx Nom (U) Positive [facility] Basophil percentageOrdered B y: Dr. Astudillo on 05-24-2022 Basophil percentage 0-5 SEEN /hpf 0-5 [facility] Bilirubin Test strip Ql (U)O rdered By: Dr. Astudillo on 05-24-2022 Bilirubin Ql (U) Negative Negative [facility] Ketones Test strip Ql (U)Ord ered By: Dr. Astudillo on 05-24-2022 Ketones Ql (U) Negative Negative [facility] Mucus LM Ql (Urine sed)Order ed By: Dr. Astudillo on 05-24-2022 Mucus Ql (Urine sed) 0 SEEN /hpf [facility] Nitrite Test strip Ql (U)Ord ered By: Dr. Astudillo on 05-24-2022 Nitrite Ql (U) Negative Negative [facility] Protein Test strip Ql (U)Ord ered By: Dr. Astudillo on 05-24-2022 Protein Ql (U) Negative Negative [facility] Squamous epithelial cells de tection in urine sediment by light microscopyOrdered By: Dr. Astudillo on 05-24-2022 Epithelial cells.squamous LM Ql (Urine sed) 0 SEEN /hpf 5-10 [facility] Urine blood detectionOrdered By: Dr. Astudillo on 05-24-2022 RBC Ql (U) Negative Negative [facility] RBC Ql (U) 0-5 SEEN /hpf 0-5 [facility] Urine clarityOrdered By: Dr. Astudillo on 05-24-2022 Clarity (U) Clear Clear [facility] Urine color determinationOrd ered By: Dr. Astudillo on 05-24-2022 Color (U) Yellow Yellow [facility] Urine glucose detectionOrder ed By: Dr. Astudillo on 05-24-2022 Glucose Ql (U) Normal mg/dl Normal [facility] Urine leukocyte esterase det ection by dipstickOrdered By: Dr. Astudillo on 05-24-2022 Leukocyte esterase Test strip Ql (U) 25 /ul Negative [facility] Urine pHOrdered By: Dr. Matilde talavera on 05-24-2022 pH (U) 5.0 [pH] 5.0 - 8.0 [facility] Urine sediment bacteria coun t by microscopy (number/high power field)Ordered By: Dr. Astudillo on 05-24-2022 Bacteria LM.HPF (Urine sed) [#/Area] RARE /hpf None Seen [facility] Urine specific gravity measu rementOrdered By: Dr. Astudillo on 05-24-2022 Specific gravity (U) [Rel density] 1.020 1.002-1.030 [facility] Urobilinogen Auto test strip Ql (U)Ordered By: Dr. Astudillo on 05-24-2022 Urobilinogen Ql (U) Normal mg/dl Normal [facility] Absolute lymphocyte counton 01-13-2022 Lymphocytes Auto (Unsp spec) [#/Vol] 1.13 10*3/uL 0.83-4.51 [facility] Work Phone: Basophil percentageon 2021 Basophils/100 WBC (Bld) 0.9 % 0-1 [facility] Work Phone: Bilirubin [Mass/Vol] 0.70 mg/dL 0.20-1.[address] [facility] Work Phone: Comment on above: For patients on eltr ombopag therapy, use of Dimension [place] TBIL is not recommended. Chloride [Moles/Vol] 105 mmol/L 98-[address] [facility] Work Phone: Cholesterol [Mass/Vol] 152 mg/dL <200 [facility] Work Phone: Comment on above: <200 mg/dL Desirable 200-240 mg/dL Borderline >240 mg/dL High Risk Eosinophils/100 WBC (Bld) 1.1 % 0-5 [facility] Work Phone: Glucose [Mass/Vol] 126 mg/dL 74-106 [facility] Work Phone: Comment on above: Fasting Glucose resu lt greater than or equal to 126 mg/dL suggests DIABETES MELLITUS per A.D.A. criteria. Neutrophils (Bld) [#/Vol] 9.2 10*3/uL 2.0-7.7 [facility] Work Phone: Neutrophils/100 WBC (Bld) 80.6 % 47-70 [facility] Work Phone: Potassium [Moles/Vol] 3.9 mmol/L 3.5-5.1 [facility] Work Phone: [phone] Protein [Mass/Vol] 6.9 g/dL 6.4-8.2 [facility] Work Phone: [phone] Sodium [Moles/Vol] 138 mmol/L 136-145 [facility] Work Phone: [phone] Triglyceride [Mass/Vol] 98 mg/dL <199 [facility] Work Phone: [phone] Comment on above: The drugs N-Acetylcy steine and Metamizole may falsely depress this assay.Serum Triglycerides Reference Interval Normal <150 mg/dL Borderline high 150 - 199 mg/dL High 200 - 499 mg/dL Very High > or = 500 mg/dL WBC (Bld) [#/Vol] 11.4 10*3/uL 4.4-11.0 [facility] Work Phone: [phone] Blood erythrocytes count (nu mber/volume)on 01-13-2022 RBC (Bld) [#/Vol] 4.50 10*6/uL 4.2-5.4 [facility] Work Phone: [phone] Blood hemoglobin measurement (mass/volume)on 01-13-2022 Hemoglobin (Bld) [Mass/Vol] 13.0 g/dL 12.0-15.0 [facility] Work Phone: Blood lymphocytes/100 leukoc yteson 01-13-2022 Lymphocytes/100 WBC (Bld) 9.9 % 19-41 [facility] Work Phone: [phone] Blood monocytes/100 leukocyt eson 01-13-2022 Monocytes/100 WBC (Bld) 7.1 % 0-10 [facility] Work Phone: [phone] Blood platelet mean volumeon 01-13-2022 Platelet mean volume (Bld) [Entitic vol] 10.6 fL 6.2-12.0 [facility] Work Phone: [phone] Determination of erythrocyte mean corpuscular volume (MCV)on 01-13-2022 MCV (RBC) [Entitic vol] 88.9 fL 81-99 [facility] Work Phone: [phone] Direct bilirubinon Bilirubin.direct [Mass/Vol] 0.17 mg/dL 0.00-0.30 [facility] Work Phone: [phone] Hematocrit Auto (Bld) [Volum e fraction]on 01-13-2022 Hematocrit (Bld) [Volume fraction] 40.0 % 37-47 [facility] Work Phone: [phone] Laboratory - Chemistry and C hemistry - challengeon 01-13-2022 ALP [Catalytic activity/Vol] 72 U/L 45-117 [facility] Work Phone: [phone] ALT [Catalytic activity/Vol] 27 U/L 13-56 [facility] Work Phone: [phone] CO2 [Moles/Vol] 29.0 mmol/L 21.0-32.0 [facility] Work Phone: [phone] Globulin (S) [Mass/Vol] 3.6 g/dL 2.2-4.2 [facility] Work Phone: [phone] Urea nitrogen/Creatinine [Mass ratio] 25.1 mg/mg 10-20 [facility] Work Phone: [phone] Laboratory - Hematology and Cell countson 01-13-2022 Erythrocyte distribution width (RBC) [Entitic vol] 40.6 fL 35.1-43.9 [facility] Work Phone: [phone] Erythrocyte distribution width (RBC) [Ratio] 12.4 % 11.6-14.6 [facility] Work Phone: [phone] Immature granulocytes/100 WBC (Bld) 0.400 % 0.0-0.9 [facility] Work Phone: [phone] Comment on above: IG% - Immature Granu locytes (promyelocytes, myelocytes and metamyelocytes) > 1% indicates that a LEFT SHIFT is Present. MCH (RBC) [Entitic mass] 28.9 pg 27.0-32.0 [facility] Work Phone: [phone] Nucleated RBC/100 WBC (Bld) [Ratio] 0 % 0-5 [facility] Work Phone: [phone] MCHC Auto (RBC) [Mass/Vol]on 01-13-2022 MCHC (RBC) [Mass/Vol] 32.5 g/dL 32-36 [facility] Work Phone: No Panel Informationon 01-13 Estimated GFR (MDRD) Amer 76 mL/min >60 [facility] Work Phone: Comment on above: GFR Calc Estimated GFR (MDRD) Non-Af Amer 63 mL/min >60 [facility] Work Phone: Comment on above: Non- GFR Calc Platelets bldon 01-13-2022 Platelets (Bld) [#/Vol] 353 10*3/uL 150-450 [facility] Work Phone: [phone] Serum or plasma albumin josué urement (mass/volume)on 01-13-2022 Albumin [Mass/Vol] 3.3 g/dL 3.2-5.0 [facility] Work Phone: [phone] Serum or plasma albumin/glob ulin mass ratioon 01-13-2022 Albumin/Globulin [Mass ratio] 0.9 {ratio} 0.9-2.4 [facility] Work Phone: [phone] Serum or plasma calcium josué urement (mass/volume)on 01-13-2022 Calcium [Mass/Vol] 8.7 mg/dL 8.5-10.1 [facility] Work Phone: [phone] Serum or plasma cholesterol in HDL measurement (mass/volume)on 01-13-2022 Cholesterol in HDL [Mass/Vol] 48 mg/dL >40 [facility] Work Phone: Comment on above: The drugs N-Acetylcy steine and Metamizole may falsely depress this assay. Reference Range HDL <40 mg/dL Low HDL Cholesterol HDL >or= 60 mg/dL High HDL Cholesterol Serum or plasma cholesterol in VLDL measurement (mass/volume)on 01-13-2022 Cholesterol in VLDL [Mass/Vol] 20 mg/dL 5-40 [facility] Work Phone: [phone] Serum or plasma creatinine m easurement (mass/volume)on 01-13-2022 Creatinine [Mass/Vol] 0.92 mg/dL 0.55-1.02 [facility] Work Phone: Comment on above: The validity of the calculated GFR & GFRAA in patients over 70 years has not been determined. Clinical correlation is essential. Serum or plasma low density lipoprotein (LDL) cholesterol measurement (mass/volume)on 01-13-2022 Cholesterol in LDL [Mass/Vol] 84 mg/dL 0-130 [facility] Work Phone: Serum or plasma urea nitroge n measurement (mass/volume)on 01-13-2022 Urea nitrogen [Mass/Vol] 23 mg/dL 7-18 [facility] Work Phone: Thin prep Papanicolaou smear with manual screeningon 01-13-2022 Thin prep Papanicolaou smear with manual screening 20 U/L 15-37 [facility] Work Phone: Thin prep Papanicolaou smear with manual screening 4 5-15 [facility] Work Phone: Basophil percentageon 2021 Basophil percentage 25-50 SEEN /hpf [facility] Work Phone: Bilirubin Test strip Ql (U)o n 09-11-2021 Bilirubin Ql (U) Negative Negative [facility] Work Phone: Culture, urineon 09-11-2021 Bacteria identified Cx Nom (U) Positive [facility] Work Phone: Ketones Test strip Ql (U)on 09-11-2021 Ketones Ql (U) Negative Negative [facility] Work Phone: Mucus LM Ql (Urine sed)on Mucus Ql (Urine sed) 0 SEEN /hpf [facility] Work Phone: Nitrite Test strip Ql (U)on 09-11-2021 Nitrite Ql (U) Negative Negative [facility] Work Phone: Protein Test strip Ql (U)on 09-11-2021 Protein Ql (U) 15 mg/dl Negative [facility] Work Phone: Squamous epithelial cells de tection in urine sediment by light microscopyon 09-11-2021 Epithelial cells.squamous LM Ql (Urine sed) 0-5 SEEN /hpf [facility] Work Phone: Urine blood detectionon 04-0 RBC Ql (U) 25 /ul Negative [facility] Work Phone: RBC Ql (U) 0-5 SEEN /hpf [facility] Work Phone: Urine clarityon 09-11-2021 Clarity (U) Clear Clear [facility] Work Phone: Urine color determinationon 09-11-2021 Color (U) Yellow Yellow [facility] Work Phone: Urine glucose detectionon Glucose Ql (U) Normal mg/dl Normal [facility] Work Phone: Urine leukocyte esterase det ection by dipstickon 09-11-2021 Leukocyte esterase Test strip Ql (U) 500 /ul Negative [facility] Work Phone: Urine pHon 09-11-2021 pH (U) 6.0 [pH] [facility] Work Phone: Urine sediment bacteria coun t by microscopy (number/high power field)on 09-11-2021 Bacteria LM.HPF (Urine sed) [#/Area] 1 /[HPF] None Seen [facility] Work Phone: Urine specific gravity measu rementon 09-11-2021 Specific gravity (U) [Rel density] 1.010 [facility] Work Phone: Urobilinogen Auto test strip Ql (U)on 09-11-2021 Urobilinogen Ql (U) Normal mg/dl Normal [facility] Work Phone: Absolute lymphocyte counton 08-27-2021 Lymphocytes Auto (Unsp spec) [#/Vol] 0.94 10*3/uL 0.83-4.51 [facility] Work Phone: Basophil percentageon 2021 Basophil percentage 25-50 SEEN /hpf [facility] Work Phone: Basophils/100 WBC (Bld) 0.8 % 0-1 [facility] Work Phone: Chloride [Moles/Vol] 104 mmol/L 98-[address] [facility] Work Phone: Eosinophils/100 WBC (Bld) 0.7 % 0-5 [facility] Work Phone: Glucose [Mass/Vol] 109 mg/dL 74-106 [facility] Work Phone: Comment on above: Fasting Glucose resu lt from 100 to 125 mg/dL suggests IMPAIRED HOMEOSTASIS per A.D.A. criteria. Neutrophils (Bld) [#/Vol] 9.8 10*3/uL 2.0-7.7 [facility] Work Phone: Neutrophils/100 WBC (Bld) 83.4 % 47-70 [facility] Work Phone: Potassium [Moles/Vol] 4.5 mmol/L 3.5-5.1 [facility] Work Phone: Sodium [Moles/Vol] 138 mmol/L 136-145 [facility] Work Phone: WBC (Bld) [#/Vol] 11.7 10*3/uL 4.4-11.0 [facility] Work Phone: Bilirubin Test strip Ql (U)o n 08-27-2021 Bilirubin Ql (U) Negative Negative [facility] Work Phone: Blood erythrocytes count (nu mber/volume)on 08-27-2021 RBC (Bld) [#/Vol] 4.40 10*6/uL 4.2-5.4 [facility] Work Phone: Blood hemoglobin measurement (mass/volume)on 08-27-2021 Hemoglobin (Bld) [Mass/Vol] 13.0 g/dL 12.0-15.0 [facility] Work Phone: Blood lymphocytes/100 leukoc yteson 08-27-2021 Lymphocytes/100 WBC (Bld) 8.0 % 19-41 [facility] Work Phone: Blood monocytes/100 leukocyt eson 08-27-2021 Monocytes/100 WBC (Bld) 6.2 % 0-10 [facility] Work Phone: Blood platelet mean volumeon 08-27-2021 Platelet mean volume (Bld) [Entitic vol] 11.2 fL 6.2-12.0 [facility] Work Phone: Determination of erythrocyte mean corpuscular volume (MCV)on 08-27-2021 MCV (RBC) [Entitic vol] 92.3 fL 81-99 [facility] Work Phone: Hematocrit Auto (Bld) [Volum e fraction]on 08-27-2021 Hematocrit (Bld) [Volume fraction] 40.6 % 37-47 [facility] Work Phone: Ketones Test strip Ql (U)on 08-27-2021 Ketones Ql (U) Negative Negative [facility] Work Phone: Laboratory - Chemistry and C hemistry - challengeon 08-27-2021 CO2 [Moles/Vol] 30.0 mmol/L 21.0-32.0 [facility] Work Phone: Urea nitrogen/Creatinine [Mass ratio] 22.8 mg/mg 10-20 [facility] Work Phone: Laboratory - Hematology and Cell countson 08-27-2021 Erythrocyte distribution width (RBC) [Entitic vol] 42.3 fL 35.1-43.9 [facility] Work Phone: [phone] Erythrocyte distribution width (RBC) [Ratio] 12.5 % 11.6-14.6 [facility] Work Phone: Immature granulocytes/100 WBC (Bld) 0.900 % 0.0-0.9 [facility] Work Phone: Comment on above: IG% - Immature Granu locytes (promyelocytes, myelocytes and metamyelocytes) > 1% indicates that a LEFT SHIFT is Present. MCH (RBC) [Entitic mass] 29.5 pg 27.0-32.0 [facility] Work Phone: [phone] Nucleated RBC/100 WBC (Bld) [Ratio] 0 % 0-5 [facility] Work Phone: [phone] MCHC Auto (RBC) [Mass/Vol]on 08-27-2021 MCHC (RBC) [Mass/Vol] 32.0 g/dL 32-36 [facility] Work Phone: [phone] Mucus LM Ql (Urine sed)on Mucus Ql (Urine sed) 0 SEEN /hpf [facility] Work Phone: [phone] Nitrite Test strip Ql (U)on 08-27-2021 Nitrite Ql (U) Negative Negative [facility] Work Phone: [phone] Panel Informationon 08-27 Estimated GFR (MDRD) Amer 90 mL/min >60 [facility] Work Phone: Comment on above: GFR Calc Estimated GFR (MDRD) Non-Af Amer 75 mL/min >60 [facility] Work Phone: [phone] Comment on above: Non- GFR Calc Platelets bldon 08-27-2021 Platelets (Bld) [#/Vol] 362 10*3/uL 150-450 [facility] Work Phone: [phone] Protein Test strip Ql (U)on 08-27-2021 Protein Ql (U) 15 mg/dl Negative [facility] Work Phone: [phone] Serum or plasma calcium josué urement (mass/volume)on 08-27-2021 Calcium [Mass/Vol] 9.5 mg/dL 8.5-10.1 [facility] Work Phone: [phone] Serum or plasma creatinine m easurement (mass/volume)on 08-27-2021 Creatinine [Mass/Vol] 0.79 mg/dL 0.55-1.02 [facility] Work Phone: [phone] Comment on above: The validity of the calculated GFR & GFRAA in patients over 70 years has not been determined. Clinical correlation is essential. Serum or plasma urea nitroge n measurement (mass/volume)on 08-27-2021 Urea nitrogen [Mass/Vol] 18 mg/dL 7-18 [facility] Work Phone: Squamous epithelial cells de tection in urine sediment by light microscopyon 08-27-2021 Epithelial cells.squamous LM Ql (Urine sed) 0-5 SEEN /hpf [facility] Work Phone: [phone] Thin prep Papanicolaou smear with manual screeningon 08-27-2021 Thin prep Papanicolaou smear with manual screening 4 5-15 [facility] Work Phone: [phone] Urine blood detectionon 08-11 RBC Ql (U) 150 /ul Negative [facility] Work Phone: [phone] RBC Ql (U) 10-25 SEEN /hpf [facility] Work Phone: [phone] Urine clarityon 08-27-2021 Clarity (U) Sl. Cloudy Clear [facility] Work Phone: Urine color determinationon 08-27-2021 Color (U) Yellow Yellow [facility] Work Phone: [phone] Urine glucose detectionon Glucose Ql (U) Normal mg/dl Normal [facility] Work Phone: Urine leukocyte esterase det ection by dipstickon 08-27-2021 Leukocyte esterase Test strip Ql (U) 500 /ul Negative [facility] Work Phone: [phone] Urine pHon 08-27-2021 pH (U) 6.0 [pH] [facility] Work Phone: [phone] Urine sediment bacteria coun t by microscopy (number/high power field)on 08-27-2021 Bacteria LM.HPF (Urine sed) [#/Area] 0 /[HPF] None Seen [facility] Work Phone: Urine specific gravity measu rementon 08-27-2021 Specific gravity (U) [Rel density] 1.010 [facility] Work Phone: Urobilinogen Auto test strip Ql (U)on 08-27-2021 Urobilinogen Ql (U) Normal mg/dl Normal [facility] Work Phone: [phone] Whole blood hemoglobin A1c/t otal hemoglobin ratio (mass fraction)on 08-27-2021 HbA1c (Bld) [Mass fraction] 5.8 % 3.8-5.6 [facility] Work Phone: Comment on above: Normal < 5.7 % Predi abetic 5.7 - 6.4 % Diabetic >or= 6.5 % Please note range changes. Basophil percentageon 2021 WBC (Bld) [#/Vol] 21.9 10*3/uL 4.4-11.0 [facility] Work Phone: [phone] Blood erythrocytes count (nu mber/volume)on 07-31-2021 RBC (Bld) [#/Vol] 3.61 10*6/uL 4.2-5.4 [facility] Work Phone: Blood hemoglobin measurement (mass/volume)on 07-31-2021 Hemoglobin (Bld) [Mass/Vol] 10.5 g/dL 12.0-15.0 [facility] Work Phone: [phone] Blood platelet mean volumeon 07-31-2021 Platelet mean volume (Bld) [Entitic vol] 10.4 fL 6.2-12.0 [facility] Work Phone: [phone] Determination of erythrocyte mean corpuscular volume (MCV)on 07-31-2021 MCV (RBC) [Entitic vol] 87.5 fL 81-99 [facility] Work Phone: [phone] Hematocrit Auto (Bld) [Volum e fraction]on 07-31-2021 Hematocrit (Bld) [Volume fraction] 31.6 % 37-47 [facility] Work Phone: [phone] Laboratory - Hematology and Cell countson 07-31-2021 Erythrocyte distribution width (RBC) [Entitic vol] 39.5 fL 35.1-43.9 [facility] Work Phone: [phone] Erythrocyte distribution width (RBC) [Ratio] 12.2 % 11.6-14.6 [facility] Work Phone: MCH (RBC) [Entitic mass] 29.1 pg 27.0-32.0 [facility] Work Phone: MCHC Auto (RBC) [Mass/Vol]on 07-31-2021 MCHC (RBC) [Mass/Vol] 33.2 g/dL 32-36 [facility] Work Phone: Platelets bldon 07-31-2021 Platelets (Bld) [#/Vol] 262 10*3/uL 150-450 [facility] Work Phone: Glucose Glucometer (BldC) [M ass/Vol]on 07-30-2021 Glucose [Mass/Vol] 120 mg/dL 70-110 [facility] Work Phone: Comment on above: MANAGEMENT OF PATIEN T CARE PER NURSING PROTOCOL Laboratory - Chemistry and C hemistry - challengeon 07-23-2021 Magnesium [Mass/Vol] 2.1 mg/dL [facility] Work Phone: Comment on above: Performed at: [place] [id number] Director: Clarke Winter PhD, Phone: [phone] Absolute lymphocyte counton 07-22-2021 Lymphocytes Auto (Unsp spec) [#/Vol] 1.17 10*3/uL 0.83-4.51 [facility] Work Phone: Activated partial thrombopla stin time (aPTT) in platelet poor plasma by coagulation aon 07-22-2021 aPTT Coag (PPP) [Time] 27.6 s 24.1-36.2 [facility] Work Phone: Basophil percentageon 2021 Basophils/100 WBC (Bld) 0.9 % 0-1 [facility] Work Phone: [phone] Bilirubin [Mass/Vol] 0.70 mg/dL 0.20-1.[address] [facility] Work Phone: Comment on above: For patients on eltr ombopag therapy, use of Dimension [place] TBIL is not recommended. Chloride [Moles/Vol] 104 mmol/L 98-[address] [facility] Work Phone: Eosinophils/100 WBC (Bld) 1.1 % 0-5 [facility] Work [phone] Glucose [Mass/Vol] 120 mg/dL 74-106 [facility] Work Phone: Comment on above: Fasting Glucose resu lt from 100 to 125 mg/dL suggests IMPAIRED HOMEOSTASIS per A.D.A. criteria. Neutrophils (Bld) [#/Vol] 7.2 10*3/uL 2.0-7.7 [facility] Work Phone: Neutrophils/100 WBC (Bld) 78.3 % 47-70 [facility] Work [phone] Potassium [Moles/Vol] 4.5 mmol/L 3.5-5.1 [facility] Work Phone: Protein [Mass/Vol] 7.3 g/dL 6.4-8.2 [facility] Work Phone: Sodium [Moles/Vol] 138 mmol/L 136-145 [facility] Work Phone: WBC (Bld) [#/Vol] 9.2 10*3/uL 4.4-11.0 [facility] Work Phone: Blood erythrocytes count (nu mber/volume)on 07-22-2021 RBC (Bld) [#/Vol] 4.83 10*6/uL 4.2-5.4 [facility] Work Phone: Blood hemoglobin measurement (mass/volume)on 07-22-2021 Hemoglobin (Bld) [Mass/Vol] 13.7 g/dL 12.0-15.0 [facility] Work Phone: Blood lymphocytes/100 leukoc yteson 07-22-2021 Lymphocytes/100 WBC (Bld) 12.7 % 19-41 [facility] Work Phone: Blood monocytes/100 leukocyt eson 07-22-2021 Monocytes/100 WBC (Bld) 6.6 % 0-10 [facility] Work Phone: Blood platelet mean volumeon 07-22-2021 Platelet mean volume (Bld) [Entitic vol] 10.4 fL 6.2-12.0 [facility] Work Phone: Determination of erythrocyte mean corpuscular volume (MCV)on 07-22-2021 MCV (RBC) [Entitic vol] 88.6 fL 81-99 [facility] Work Phone: Hematocrit Auto (Bld) [Volum e fraction]on 07-22-2021 Hematocrit (Bld) [Volume fraction] 42.8 % 37-47 [facility] Work Phone: INR in Blood by Coagulation assayon 07-22-2021 INR Coag (Bld) [Relative time] 1.0 {INR} [facility] Work Phone: Laboratory - Chemistry and C hemistry - challengeon 07-22-2021 ALP [Catalytic activity/Vol] 82 U/L 45-117 [facility] Work Phone: ALT [Catalytic activity/Vol] 35 U/L 13-56 [facility] Work Phone: CO2 [Moles/Vol] 32.0 mmol/L 21.0-32.0 [facility] Work Phone: Globulin (S) [Mass/Vol] 3.9 g/dL 2.2-4.2 [facility] Work Phone: Urea nitrogen/Creatinine [Mass ratio] 22.0 mg/mg 10-20 [facility] Work Phone: Laboratory - Coagulationon 0 07-22-2021 PT Coag (PPP) [Time] 12.9 s 11.7-14.9 [facility] Laboratory - Hematology and Cell countson 07-22-2021 Erythrocyte distribution width (RBC) [Entitic vol] 40.3 fL 35.1-43.9 [facility] Work Phone: [phone] Erythrocyte distribution width (RBC) [Ratio] 12.3 % 11.6-14.6 [facility] Work Phone: [phone] Immature granulocytes/100 WBC (Bld) 0.400 % 0.0-0.9 [facility] Work Phone: [phone] Comment on above: IG% - Immature Granu locytes (promyelocytes, myelocytes and metamyelocytes) > 1% indicates that a LEFT SHIFT is Present. MCH (RBC) [Entitic mass] 28.4 pg 27.0-32.0 [facility] Work Phone: [phone] Nucleated RBC/100 WBC (Bld) [Ratio] 0 % 0-5 [facility] Work Phone: [phone] MCHC Auto (RBC) [Mass/Vol]on 07-22-2021 MCHC (RBC) [Mass/Vol] 32.0 g/dL 32-36 [facility] Work Phone: [phone] Panel Informationon 07-22 Estimated GFR (MDRD) Amer 82 mL/min >60 [facility] Work Phone: [phone] Comment on above: GFR Calc Estimated GFR (MDRD) Non-Af Amer 68 mL/min >60 [facility] Work Phone: [phone] Comment on above: Non- GFR Calc Platelets bldon 07-22-2021 Platelets (Bld) [#/Vol] 384 10*3/uL 150-450 [facility] Work Phone: [phone] Serum or plasma albumin josué urement (mass/volume)on 07-22-2021 Albumin [Mass/Vol] 3.4 g/dL 3.2-5.0 [facility] Work Phone: [phone] Serum or plasma albumin/glob ulin mass ratioon 07-22-2021 Albumin/Globulin [Mass ratio] 0.9 {ratio} 0.9-2.4 [facility] Work Phone: [phone] Serum or plasma calcium josué urement (mass/volume)on 07-22-2021 Calcium [Mass/Vol] 9.4 mg/dL 8.5-10.1 [facility] Work Phone: [phone] Serum or plasma creatinine m easurement (mass/volume)on 07-22-2021 Creatinine [Mass/Vol] 0.86 mg/dL 0.55-1.02 [facility] Work Phone: [phone] Comment on above: The validity of the calculated GFR & GFRAA in patients over 70 years has not been determined. Clinical correlation is essential. Serum or plasma urea nitroge n measurement (mass/volume)on 07-22-2021 Urea nitrogen [Mass/Vol] 19 mg/dL 7-18 [facility] Work Phone: [phone] Thin prep Papanicolaou smear with manual screeningon 07-22-2021 Thin prep Papanicolaou smear with manual screening 17 U/L 15-37 [facility] Work Phone: [phone] Thin prep Papanicolaou smear with manual screening 2 5-15 [facility] Work Phone: [phone] Basophil percentageon 2021 Bilirubin [Mass/Vol] 0.60 mg/dL 0.20-1.[address] [facility] Work Phone: [phone] Comment on above: For patients on eltr ombopag therapy, use of Dimension [place] TBIL is not recommended. Cholesterol [Mass/Vol] 165 mg/dL <200 [facility] Work Phone: [phone] Comment on above: <200 mg/dL Desirable 200-240 mg/dL Borderline >240 mg/dL High Risk Protein [Mass/Vol] 6.9 g/dL 6.4-8.2 [facility] Work Phone: [phone] Triglyceride [Mass/Vol] 107 mg/dL [facility] Work Phone: [phone] Comment on above: The drugs N-Acetylcy steine and Metamizole may falsely depress this assay.Serum Triglycerides Reference Interval Normal <150 mg/dL Borderline high 150 - 199 mg/dL High 200 - 499 mg/dL Very High > or = 500 mg/dL Direct bilirubinon Bilirubin.direct [Mass/Vol] 0.14 mg/dL 0.00-0.30 [facility] Work Phone: [phone] Laboratory - Chemistry and C hemistry - challengeon 07-08-2021 ALP [Catalytic activity/Vol] 78 U/L 45-117 [facility] Work Phone: [phone] ALT [Catalytic activity/Vol] 30 U/L 13-56 [facility] Work Phone: [phone] Globulin (S) [Mass/Vol] 3.6 g/dL 2.2-4.2 [facility] Work Phone: [phone] Magnesium [Mass/Vol] 2.3 mg/dL 1.6-2.[address] [facility] Work Phone: [phone] Serum or plasma albumin josué urement (mass/volume)on 07-08-2021 Albumin [Mass/Vol] 3.3 g/dL 3.2-5.0 [facility] Work Phone: [phone] Serum or plasma cholesterol in HDL measurement (mass/volume)on 07-08-2021 Cholesterol in HDL [Mass/Vol] 51 mg/dL [facility] Work Phone: Comment on above: The drugs N-Acetylcy steine and Metamizole may falsely depress this assay. Reference Range HDL <40 mg/dL Low HDL Cholesterol HDL >or= 60 mg/dL High HDL Cholesterol Serum or plasma cholesterol in VLDL measurement (mass/volume)on 07-08-2021 Cholesterol in VLDL [Mass/Vol] 21 mg/dL 5-40 [facility] Work Phone: [phone] Serum or plasma low density lipoprotein (LDL) cholesterol measurement (mass/volume)on 07-08-2021 Cholesterol in LDL [Mass/Vol] 93 mg/dL 0-130 [facility] Work Phone: [phone] Thin prep Papanicolaou smear with manual screeningon 07-08-2021 Thin prep Papanicolaou smear with manual screening 17 U/L 15-37 [facility] Work Phone: [phone] Vital Signs Date Time Vital Sign Value Performing Clinician Faci lity 10-08-2024 13:30-0400 Body temperature 97.8 [degF] Dr. Cristal Astudillo MD Work Phone: [facility] 10-08-2024 13:30-0400 Diastolic blood pressure 66 mm[Hg] Dr. Cristal Astudillo MD Work Phone: [facility] 10-08-2024 13:30-0400 Heart rate 77 /min Dr. Cristal Astudillo MD Work Phone: [facility] 10-08-2024 13:30-0400 SaO2% (BldA) [Mass fraction] 98 % Dr. Cristal Astudillo MD Work Phone: [facility] 10-08-2024 13:30-0400 Systolic blood pressure 124 mm[Hg] Dr. Cristal Astudillo MD Work Phone: [facility] 09-06-2024 09:32-0400 Body height 157.[address] Cristal Astudillo MD Work Phone: [facility] 09-06-2024 09:32-0400 Body mass index (BMI) [Ratio] 21.9 kg/m2 Dr. Cristal Astudillo MD Work Phone: [facility] 09-06-2024 09:32-0400 Body weight 54.[address] Cristal Astudillo MD Work Phone: [facility] 09-06-2024 09:32-0400 Diastolic blood pressure 66 mm[Hg] Dr. Cristal Astudillo MD Work Phone: [facility] 09-06-2024 09:32-0400 Heart rate 65 /min Dr. Cristal Astudillo MD Work Phone: [facility] 09-06-2024 09:32-0400 Respiratory rate 16 /min Dr. Cristal Astudillo MD Work Phone: [facility] 09-06-2024 09:32-0400 Systolic blood pressure 117 mm[Hg] Dr. Cristal Astudillo MD Work Phone: [facility] 08-23-2024 08:04-0400 Body height 157.[address] Cristal Astudillo MD Work Phone: [facility] 08-23-2024 08:04-0400 Body mass index (BMI) [Ratio] 22.1 kg/m2 Dr. Cristal Astudillo MD Work Phone: [facility] 08-23-2024 08:04-0400 Body temperature 98 [degF] Dr. Cristal Astudillo MD Work Phone: [facility] 08-23-2024 08:04-0400 Body weight 54.[address] Cristal Astudillo MD Work Phone: [facility] 08-23-2024 08:04-0400 Diastolic blood pressure 70 mm[Hg] Dr. Cristal Astudillo MD Work Phone: [facility] 08-23-2024 08:04-0400 Heart rate 73 /min Dr. Cristal Astudillo MD Work Phone: [facility] 08-23-2024 08:04-0400 Respiratory rate 16 /min Dr. Cristal Astudillo MD Work Phone: [facility] 08-23-2024 08:04-0400 SaO2% (BldA) [Mass fraction] 98 % Dr. Cristal Astudillo MD Work Phone: [facility] 08-23-2024 08:04-0400 Systolic blood pressure 119 mm[Hg] Dr. Cristal Astudillo MD Work Phone: [facility] 08-06-2024 07:59-0500 Body mass index (BMI) [Ratio] 22.1 kg/m2 Dr. Cristal Astudillo MD Work Phone: [facility] 08-06-2024 07:59-0500 Body temperature 98 [degF] Dr. Cristal Astudillo MD Work Phone: [facility] 08-06-2024 07:59-0500 Body weight 55.[address] Cristal Astudillo MD Work Phone: [facility] 08-06-2024 07:59-0500 Diastolic blood pressure 76 mm[Hg] Dr. Cristal Astudillo MD Work Phone: [facility] 08-06-2024 07:59-0500 Heart rate 71 /min Dr. Cristal Astudillo MD Work Phone: [facility] 08-06-2024 07:59-0500 Respiratory rate 16 /min Dr. Cristal Astudillo MD Work Phone: [facility] 08-06-2024 07:59-0500 SaO2% (BldA) [Mass fraction] 98 % Dr. Cristal Astudillo MD Work Phone: [facility] 08-06-2024 07:59-0500 Systolic blood pressure 134 mm[Hg] Dr. Cristal Astudillo MD Work Phone: [facility] 08-03-2023 08:04-0500 Body height 157.[address] Cristal Astudillo Work Phone: [facility] 08-03-2023 08:04-0500 Body mass index (BMI) [Ratio] 21.8 kg/m2 Dr. Cristal Astudillo Work Phone: [facility] 08-03-2023 08:04-0500 Body temperature 97.8 [degF] Dr. Cristal Astudillo Work Phone: [facility] 08-03-2023 08:04-0500 Body weight 54.[address] Cristal Astudillo Work Phone: [facility] 08-03-2023 08:04-0500 Diastolic blood pressure 66 mm[Hg] Dr. Cristal Astudillo Work Phone: [facility] 08-03-2023 08:04-0500 Heart rate 74 /min Dr. Cristal Astudillo Work Phone: [facility] 08-03-2023 08:04-0500 Respiratory rate 16 /min Dr. Cristal Astudillo Work Phone: [facility] 08-03-2023 08:04-0500 SaO2% (BldA) [Mass fraction] 95 % Dr. Cristal Astudillo Work Phone: [facility] 08-03-2023 08:04-0500 Systolic blood pressure 121 mm[Hg] Dr. Cristal Astudillo Work Phone: [facility] 07-21-2023 09:15-0500 Diastolic blood pressure 63 mm[Hg] Dr. Cristal Astudillo Work Phone: [facility] 07-21-2023 09:15-0500 Heart rate 74 /min Dr. Cristal Astudillo Work Phone: [facility] 07-21-2023 09:15-0500 Respiratory rate 16 /min Dr. Cristal Astudillo Work Phone: [facility] 07-21-2023 09:15-0500 Systolic blood pressure 133 mm[Hg] Dr. Cristal Astudillo Work Phone: [facility] 07-21-2023 08:49-0500 Body mass index (BMI) [Ratio] 21.2 kg/m2 Dr. Cristal Astudillo Work Phone: [facility] 07-21-2023 08:49-0500 Body weight 52.[address] Cristal Astudillo Work Phone: [facility] 03-01-2023 09:15-0400 Diastolic blood pressure 51 mm[Hg] Dr. Cristal Astudillo Work Phone: [facility] 03-01-2023 09:15-0400 Heart rate 60 /min Dr. Cristal Astudillo Work Phone: [facility] 03-01-2023 09:15-0400 Respiratory rate 16 /min Dr. Cristal Astudillo Work Phone: [facility] 03-01-2023 09:15-0400 SaO2% (BldA) [Mass fraction] 98 % Dr. Cristal Astudillo Work Phone: [facility] 03-01-2023 09:15-0400 Systolic blood pressure 125 mm[Hg] Dr. Cristal Astudillo Work Phone: [facility] 03-01-2023 09:00-0400 Body temperature 97.5 [degF] Dr. Cristal Astudillo Work Phone: [facility] 03-01-2023 08:01-0400 Body height 157.[address] Cristal Astudillo Work Phone: [facility] 03-01-2023 08:01-0400 Body mass index (BMI) [Ratio] 20.5 kg/m2 Dr. Cristal Astudillo Work Phone: [facility] 03-01-2023 08:01-0400 Body weight [address] Cristal Astudillo Work Phone: [facility] 02-24-2023 07:58-0400 Body mass index (BMI) [Ratio] 21.5 kg/m2 Dr. Cristal Astudillo Work Phone: [facility] 02-24-2023 07:58-0400 Body temperature 96.5 [degF] Dr. Cristal Astudillo Work Phone: [facility] 02-24-2023 07:58-0400 Body weight 53.[address] Cristal Astudillo Work Phone: [facility] 02-24-2023 07:58-0400 Diastolic blood pressure 73 mm[Hg] Dr. Cristal Astudillo Work Phone: [facility] 02-24-2023 07:58-0400 Heart rate 67 /min Dr. Cristal Astudillo Work Phone: [facility] 02-24-2023 07:58-0400 Respiratory rate 17 /min Dr. Cristal Astudillo Work Phone: [facility] 02-24-2023 07:58-0400 SaO2% (BldA) [Mass fraction] 100 % Dr. Cristal Astudillo Work Phone: [facility] 02-24-2023 07:58-0400 Systolic blood pressure 146 mm[Hg] Dr. Cristal Astudillo Work Phone: [facility] 02-17-2023 09:07-0400 Body mass index (BMI) [Ratio] 21.3 kg/m2 Dr. Cristal Astudillo Work Phone: [facility] 02-17-2023 09:07-0400 Body temperature 98.2 [degF] Dr. Cristal Astudillo Work Phone: [facility] 02-17-2023 09:07-0400 Body weight 52.[address] Cristal Astudillo Work Phone: [facility] 02-17-2023 09:07-0400 Diastolic blood pressure 73 mm[Hg] Dr. Cristal Astudillo Work Phone: [facility] 02-17-2023 09:07-0400 Heart rate 79 /min Dr. Cristal Astudillo Work Phone: [facility] 02-17-2023 09:07-0400 Respiratory rate 18 /min Dr. Cristal Astudillo Work Phone: [facility] 02-17-2023 09:07-0400 SaO2% (BldA) [Mass fraction] 96 % Dr. Cristal Astudillo Work Phone: [facility] 02-17-2023 09:07-0400 Systolic blood pressure 116 mm[Hg] Dr. Cristal Astudillo Work Phone: [facility] 01-31-2023 08:04-0400 Body mass index (BMI) [Ratio] 21.4 kg/m2 Dr. Cristal Astudillo Work Phone: [facility] 01-31-2023 08:04-0400 Body temperature 97.9 [degF] Dr. Cristal Astudillo Work Phone: [facility] 01-31-2023 08:04-0400 Body weight 53.[address] Cristal Astudillo Work Phone: [facility] 01-31-2023 08:04-0400 Diastolic blood pressure 76 mm[Hg] Dr. Cristal Astudillo Work Phone: [facility] 01-31-2023 08:04-0400 Heart rate 77 /min Dr. Cristal Astudillo Work Phone: [facility] 01-31-2023 08:04-0400 Respiratory rate 16 /min Dr. Cristal Astudillo Work Phone: [facility] 01-31-2023 08:04-0400 SaO2% (BldA) [Mass fraction] 98 % Dr. Cristal Astudillo Work Phone: [facility] 01-31-2023 08:04-0400 Systolic blood pressure 123 mm[Hg] Dr. Cristal Astudillo Work Phone: [facility] 08-04-2022 07:56-0500 Body temperature 97.6 [degF] Dr. Cristal Astudillo Work Phone: [facility] 08-04-2022 07:56-0500 Body weight 53.[address] Cristal Astudillo Work Phone: [facility] 08-04-2022 07:56-0500 Diastolic blood pressure 74 mm[Hg] Dr. Cristal Astudillo Work Phone: [facility] 08-04-2022 07:56-0500 Heart rate 75 /min Dr. Cristal Astudillo Work Phone: [facility] 08-04-2022 07:56-0500 Respiratory rate 16 /min Dr. Cristal Astudillo Work Phone: [facility] 08-04-2022 07:56-0500 SaO2% (BldA) [Mass fraction] 97 % Dr. Cristal Astudillo Work Phone: [facility] 08-04-2022 07:56-0500 Systolic blood pressure 138 mm[Hg] Dr. Cristal Astudillo Work Phone: [facility] 07-20-2022 10:52-0500 Diastolic blood pressure 73 mm[Hg] Dr. Cristal Astudillo Work Phone: [facility] 07-20-2022 10:52-0500 Heart rate 70 /min Dr. Cristal Astudillo Work Phone: [facility] 07-20-2022 10:52-0500 Systolic blood pressure 143 mm[Hg] Dr. Cristal Astudillo Work Phone: [facility] 07-20-2022 10:37-0500 Body height 157.[address] Cristal Astudillo Work Phone: [facility] 07-20-2022 10:37-0500 Body mass index (BMI) [Ratio] 21.5 kg/m2 Dr. Cristal Astudillo Work Phone: [facility] 07-20-2022 10:37-0500 Body weight 53.[address] Cristal Astudillo Work Phone: [facility] 07-20-2022 10:37-0500 Respiratory rate 16 /min Dr. Cristal Astudillo Work Phone: [facility] 02-03-2022 08:51-0400 Body height 157.[address] Cristal Astudillo Work Phone: [facility] Work Phone: 02-03-2022 08:51-0400 Body mass index (BMI) [Ratio] 21.4 kg/m2 Dr. Cristal Astudillo Work Phone: [facility] Work Phone: 02-03-2022 08:51-0400 Body temperature 97.9 [degF] Dr. Cristal Astudillo Work Phone: [facility] Work Phone: 02-03-2022 08:51-0400 Body weight 53.[address] Cristal Astudillo Work Phone: [facility] Work Phone: 02-03-2022 08:51-0400 Diastolic blood pressure 68 mm[Hg] Dr. Cristal Astudillo Work Phone: [facility] Work Phone: 02-03-2022 08:51-0400 Heart rate 68 /min Dr. Cristal Astudillo Work Phone: [facility] Work Phone: 02-03-2022 08:51-0400 Respiratory rate 16 /min Dr. Cristal Astudillo Work Phone: [facility] Work Phone: 02-03-2022 08:51-0400 SaO2% (BldA) [Mass fraction] 98 % Dr. Cristal Astudillo Work Phone: [facility] Work Phone: 02-03-2022 08:51-0400 Systolic blood pressure 126 mm[Hg] Dr. Cristal Astudillo Work Phone: [facility] Work Phone: 09-11-2021 08:30-0400 Body height 157.[address] Cristal Astudillo Work Phone: [facility] Work Phone: 09-11-2021 08:30-0400 Body mass index (BMI) [Ratio] 21.5 kg/m2 Dr. Cristal Astudillo Work Phone: [facility] Work Phone: 09-11-2021 08:30-0400 Body temperature 97.9 [degF] Dr. Cristal Astudillo Work Phone: [facility] Work Phone: 09-11-2021 08:30-0400 Body weight 53.[address] Cristal Astudillo Work Phone: [facility] Work Phone: 09-11-2021 08:30-0400 Diastolic blood pressure 70 mm[Hg] Dr. Cristal Astudillo Work Phone: [facility] Work Phone: 09-11-2021 08:30-0400 Heart rate 83 /min Dr. Cristal Astudillo Work Phone: [facility] Work Phone: 09-11-2021 08:30-0400 Respiratory rate 14 /min Dr. Cristal Astudillo Work Phone: [facility] Work Phone: 09-11-2021 08:30-0400 SaO2% (BldA) [Mass fraction] 99 % Dr. Cristal Astudillo Work Phone: [facility] Work Phone: 09-11-2021 08:30-0400 Systolic blood pressure 136 mm[Hg] Dr. Cristal Astuidllo Work Phone: [facility] Work Phone: 08-27-2021 08:34-0400 Body height 157.[address] Cristal Astudillo Work Phone: [facility] Work Phone: 08-27-2021 08:34-0400 Body mass index (BMI) [Ratio] 21.6 kg/m2 Dr. Cristal Astudillo Work Phone: [facility] Work Phone: 08-27-2021 08:34-0400 Body temperature 96.3 [degF] Dr. Cristal Astudillo Work Phone: [facility] Work Phone: 08-27-2021 08:34-0400 Body weight 53.[address] Cristal Astudillo Work Phone: [facility] Work Phone: 08-27-2021 08:34-0400 Diastolic blood pressure 64 mm[Hg] Dr. Cristal Astudillo Work Phone: [facility] Work Phone: 08-27-2021 08:34-0400 Heart rate 71 /min Dr. Cristal Astudillo Work Phone: [facility] Work Phone: 08-27-2021 08:34-0400 Respiratory rate 16 /min Dr. Cristal Astudillo Work Phone: [facility] Work Phone: 08-27-2021 08:34-0400 SaO2% (BldA) [Mass fraction] 99 % Dr. Cristal Astudillo Work Phone: [facility] Work Phone: 08-27-2021 08:34-0400 Systolic blood pressure 130 mm[Hg] Dr. Cristal Astudillo Work Phone: [facility] Work Phone: 07-31-2021 06:34-0500 Body temperature 97.9 [degF] Dr. Cristal Astudillo Work Phone: [facility] Work Phone: 07-31-2021 06:34-0500 Diastolic blood pressure 53 mm[Hg] Dr. Cristal Astudillo Work Phone: [facility] Work Phone: 07-31-2021 06:34-0500 Heart rate 64 /min Dr. Cristal Astudillo Work Phone: [facility] Work Phone: 07-31-2021 06:34-0500 Respiratory rate 16 /min Dr. Cristal Astudillo Work Phone: [facility] Work Phone: 07-31-2021 06:34-0500 SaO2% (BldA) [Mass fraction] 97 % Dr. Cristal Astudillo Work Phone: [facility] Work Phone: 07-31-2021 06:34-0500 Systolic blood pressure 112 mm[Hg] Dr. Cristal Astudillo Work Phone: [facility] Work Phone: 07-30-2021 10:18-0500 Body mass index (BMI) [Ratio] 21.3 kg/m2 Dr. Cristal Astudillo Work Phone: [facility] Work Phone: 07-30-2021 10:18-05[address] Cristal Astudillo Work Phone: [facility] Work Phone: 07-16-2021 08:03-0500 Diastolic blood pressure 68 mm[Hg] Dr. Cristal Astudillo Work Phone: [facility] Work Phone: 07-16-2021 08:03-0500 Heart rate 82 /min Dr. Cristal Astudillo Work Phone: [facility] Work Phone: 07-16-2021 08:03-0500 Systolic blood pressure 135 mm[Hg] Dr. Cristal Astudillo Work Phone: [facility] Work Phone: 07-16-2021 07:49-0500 Body weight 53.[address] Cristal Astudillo Work Phone: [facility] Work Phone: 07-16-2021 07:49-0500 Respiratory rate 16 /min Dr. Cristal Astudillo Work Phone: [facility] Work Phone: 06-19-2020 06:59-0500 Body mass index (BMI) [Ratio] 21 kg/m2 Dr. Cristal Astudillo Work Phone: [facility] Work Phone: Encounters Encounter Date Encounter Type Care Provider Facility Start: 10-12-2024 End: 10-12-[address] Cristal Astudillo MD Work Phone: [facility] Work Phone: Start: 10-12-2024 End: 10-12-[address] Morelia Higgins MD -Laboratory Work Phone: Start: 10-12-2024 End: 10-12-2024 ambulatory [facility] Facility:[facility] Start: 10-08-2024 End: 10-08-2024 Patient encounter procedure Zafar Tolliver [place] -[facility] Work Phone: Start: 10-08-2024 End: 10-08-2024 ambulatory [facility] Facility:[facility] Start: 09-07-2024 End: 09-07-[address] Cristal Astudillo MD Work Phone: [facility] Work Phone: Start: 09-07-2024 End: 09-07-[address] Cristal Astudillo MD -Laboratory Work Phone: Start: 09-06-2024 End: 09-06-[address] Marcial Moe MD -[facility] Work Phone: Start: 09-06-2024 End: 09-07-2024 ambulatory Cristal Astudillo Facility:[facility] Start: 08-23-2024 End: 08-23-[address] Cristal Astudillo MD -[facility] Work Phone: Start: 08-23-2024 End: 08-23-2024 ambulatory Cristal Astudillo Facility:[facility] Start: 08-16-2024 End: 08-16-[address] Cristal Astudillo MD Work Phone: [facility] Work Phone: Start: 08-16-2024 End: 08-16-[address] Cristal Astudillo MD -Outpatient [facility] Work Phone: Start: 08-16-2024 End: 08-16-2024 ambulatory Cristalmanuel Astudillo Facility:[facility] Start: 08-06-2024 End: 08-06-[address] Cristal Astudillo MD -[facility] Work Phone: Start: 08-06-2024 End: 08-06-2024 ambulatory Cristal Astudillo Facility:[facility] Start: 08-02-2024 End: 08-02-[address] Morelia Higgins MD -Laboratory Work Phone: Start: 08-02-2024 End: 08-02-2024 ambulatory Cristalmanuel Astudillo Facility:[facility] Start: 06-22-2024 End: 06-22-2024 Patient encounter procedure Sathish MORGAN -Laboratory Work Phone: Start: 06-22-2024 End: 06-22-[facility] Start: 05-08-2024 End: 05-08-[address] Morelia Higgins MD -Laboratory Work Phone: Start: 05-08-2024 End: 05-08-2024 ambulatory Cristalmanuel Astudillo Facility:[facility] Start: 03-28-2024 [facility] Start: 03-28-2024 End: 03-28-2024 [facility] Start: 03-07-2024 End: 03-07-2024 ambulatory Cristal Wilda Facility:[facility] Start: 02-01-2024 End: 02-01-2024 ambulatory Cristalmanuel Astudillo Facility:[facility] Start: 01-18-2024 End: 01-18-2024 [facility] Start: 11-10-2023 End: 11-10-2023 ambulatory Cristal Astudillo Facility:[facility] Start: 08-19-2023 End: 08-19-[address] Cristal Astudillo Work Phone: [facility] Work Phone: Start: 08-19-2023 End: 08-19-[address] Cristal Astudillo Work Phone: [facility]-Laboratory Work Phone: Start: 08-16-2023 End: 08-16-[address] Cristal Astudillo Work Phone: [facility] Work Phone: Start: 08-16-2023 End: 08-16-[address] Cristal Astudillo Work Phone: [facility]-Outpatient Breast Imaging Work Phone: Start: 08-03-2023 End: 08-03-[address] Cristal Astudillo Work Phone: [facility] Work Phone: Start: 07-21-2023 End: 07-21-[address] Cristal Astudillo Work Phone: [facility] Work Phone: Start: 07-07-2023 End: 07-07-2023 ambulatory [facility] Work Phone: Start: 07-07-2023 End: 07-07-2023 Patient encounter procedure [facility]-Laboratory Work Phone: Start: 05-18-2023 End: 05-18-[address] Cristal Astudillo Work Phone: [facility] Work Phone: Start: 05-18-2023 End: 05-18-[address] Cristal Astudillo Work Phone: [facility]-Laboratory Work Phone: Start: 03-22-2023 End: 03-22-[address] Cristal Astudillo Work Phone: [facility] Work Phone: Start: 03-22-2023 End: 03-22-[address] [facility] Start: 03-01-2023 Non-patient / Non-visit Dr. Allyson Astudillo Work Phone: [facility] Start: 03-01-2023 End: 03-01-2023 Admission to same day surgery center Dr. Cristal Astudillo Work Phone: [facility]-Endoscopy Work Phone: Start: 03-01-2023 End: 03-01-[address] Cristal Astudillo Work Phone: [facility] Work Phone: Start: 02-24-2023 End: 02-24-[address] Cristal Astudillo Work Phone: [facility] Work Phone: Start: 02-17-2023 End: 02-17-[address] Cristal Astudillo Work Phone: [facility] Work Phone: Start: 01-31-2023 End: 01-31-[address] Cristal Astudillo Work Phone: [facility] [place] Work Phone: Start: 01-11-2023 End: 01-11-2023 ambulatory [facility] Work Phone: Start: 01-11-2023 End: 01-11-2023 [facility] Start: 11-22-2022 End: 11-22-2022 [facility] Start: 08-11-2022 End: 08-11-[address] Cristal Astudillo Work Phone: [facility] Work Phone: Start: 08-11-2022 End: 08-11-[address] Cristal Astudillo Work Phone: [facility]-Outpatient Breast Imaging Start: 08-04-2022 End: 08-04-[address] Cristal Astudillo Work Phone: [facility] [place] Start: 07-20-2022 End: 07-20-[address] Cristal Astudillo Work Phone: [facility] Start: 07-14-2022 End: 07-14-[address] Cristal Astudillo Work Phone: [facility] Work Phone: Start: 07-14-2022 End: 07-14-[address] Cristal Astudillo Work Phone: [facility] Start: 05-24-2022 End: 05-24-[address] Cristal Astudillo Work Phone: [facility] Work Phone: Start: 05-24-2022 End: 05-24-[address] Cristal Astudillo Work Phone: [facility] Start: 02-03-2022 End: 02-03-[address] Cristal Astudillo Work Phone: [facility] [place] Start: 01-13-2022 End: 01-13-2022 [facility] Start: 09-11-2021 End: 09-11-[address] Crist[facility]stud[facility] Start: 09-11-2021 End: 09-11-[address] Cristal Astudillo Work Phone: [facility] Start: 09-01-2021 End: 09-01-[address] Cristal Astudillo Work Phone: [facility]-Ultrasound, [facility] Start: 08-27-2021 End: 08-27-[address] Cristal Astudillo Work Phone: [facility]-Laboratory, [facility] Start: 08-27-2021 End: 08-27-[address] Cristal Astudillo Work Phone: [facility] Start: 07-30-2021 End: 07-31-2021 Evaluation and management of inpatient Dr. Cristal Astudillo Work Phone: [facility]-Medical Surgical 3 Start: 07-22-2021 End: 07-22-[address] [facility] Start: 07-16-[address] Cristal Astudillo Work Phone: [facility] Comment on above: Repair of prolapsed uterus on 06/29/21 Start: 07-16-2021 End: 07-16-2021 Admission to same day surgery center Dr. Cristal Astudillo Work Phone: [facility] Start: 07-16-2021 End: 07-16-[address] Cristal Astudillo Work Phone: [facility] Start: 07-08-2021 End: 07-08-[address] Cristal Astudillo Work Phone: [facility] Start: 06-17-2021 Non-patient / Non-visit Dr. Allyson Astudillo Work Phone: [facility] Procedures Date Procedure Procedure Detail Performing Clinician Start: 09-07-2024 Vitamin D, 25-hydrox y measurement Dr. Cristal Astudillo MD Work Phone: Comment on above: Vitamin D StatusDefi ciency: <20 ng/mL (50nmol/L)Insufficiency: 20-30 ng/mL (50-75 nmol/L)Sufficiency: 30-100 ng/mL (75-250 nmol/L)Toxicity: >100 ng/mL (>250 nmol/L) Start: 08-16-2024 Screening mammography Jori Astudillo MD Work Phone: Start: 08-02-2024 Measurement of renal function Dr. Cristal Astudillo MD Work Phone: Comment on above: GFR Calc Start: 08-16-2023 Screening mammography Jori Astudillo Work Phone: Start: 03-01-[address] Cristal Astudillo Work Phone: Start: 08-11-2022 Screening mammography Jori Astudillo Work Phone: Start: 09-11-[address] Cristal Astudillo Work Phone: Start: 09-01-[address] Allyson Astudillo Work Phone: H/O: hysterectomy History of hysterectomy Dr. Cristal Astudillo Work Phone: Comment on above: 07/[address] Cristal talavera Work Phone: Plan of Treatment Date Care Activity Detail Author Start: 08-19-2023 CBC W Auto Differential panel - Blood [facility] Start: 08-19-2023 Procedure [facility] Start: 08-19-2023 Thyroid stimulating hormone measurement [facility] Start: 08-19-2023 [facility] Start: 03-01-2023 Colonoscopy flx dx w/collj spec when pfrmd DIAGNOSTIC COLONOSCOPY [facility] Start: 03-01-2023 Patient discharge [facility] Start: 02-17-2023 Patient referral [facility] Work Phone: Start: 07-30-2021 Anesthesia vaginal hysterectomy incl biopsy ANESTH VAGINAL HYSTERECTOMY [facility] Work Phone: Start: 07-30-2021 Vaginal hysterectomy 250 gm/< w/rpr enterocele VAG HYST W/ENTEROCELE REPAIR [facility] Work Phone: Alanine aminotransfe rase [Enzymatic activity/volume] in Serum or Plasma [facility] Albumin [Mass/volume ] in Serum or Plasma [facility] Alkaline phosphatase [Enzymatic activity/volume] in Serum or Plasma [facility] Anion gap measurement [facility] Aspartate aminotrans ferase [Enzymatic activity/volume] in Serum or Plasma [facility] Bacteria identified in Urine by Culture Urine Culture [facility] Work Phone: Bilirubin, total measurement [facility] BUN/Creatinine ratio [facility] Calcium [Mass/volume ] in Serum or Plasma [facility] Carbon dioxide, tota l [Moles/volume] in Serum or Plasma [facility] Chloride [Moles/volu me] in Serum or Plasma [facility] Colonoscopy [facility] Creatinine [Moles/vo lume] in Serum or Plasma [facility] Erythrocyte mean corpuscular volume determination [facility] Glucose [Mass/volume ] in Serum or Plasma [facility] Hematocrit [Volume Fraction] of Blood [facility] Hemoglobin [Mass/vol ume] in Blood [facility] Hemoglobin A1c/Hemoglobin.total in Blood [facility] Leukocytes [#/volume ] in Blood [facility] Lipid 1996 panel - S mario or Plasma [facility] Mean corpuscular hem oglobin concentration determination [facility] Mean corpuscular hem oglobin determination [facility] Measurement of renal function [facility] Neutrophil count [facility] Neutrophil percent differential count [facility] Patient referral [facility] Work Phone: Platelets [#/volume] in Blood [facility] Potassium [Moles/vol ume] in Serum or Plasma [facility] Red blood cell count [facility] Red cell distributio n width determination [facility] Sodium [Moles/volume ] in Serum or Plasma [facility] Thyroid stimulating hormone measurement [facility] Total protein measurement [facility] Urea nitrogen [Mass/ volume] in Serum or Plasma [facility] Vitamin D, 25-hydrox y measurement [facility] Immunizations Immunization Date Immunization Notes Care Provider Fa [facility] 04-09-2021 Covid (Sedicii) Dr. Cristal luu Work Phone: [facility] 09-04-2020 Covid (Sedicii) Dr. Cristal luu Work Phone: [facility] 08-14-2020 Covid (Sedicii) Dr. Cristal luu Work Phone: [facility] Payers Date Payer Category Payer Self-pay [id number] 2023 Medicare [id number] 2023 Medicare [id number] 2023 Private Health Insurance [id number] Private Health Insurance [id number] Unknown [id number] 2.16.8 [id number] Unknown [id number] 2.16.8 [id number] Unknown [id number] 2.16.8 [id number] Unknown [id number] 2.16.8 [id number] Unknown [id number] 2.16.8 [id number] Unknown [id number] 2.16.8 40.1.938985.3.579.2.462 Unknown [id number] 2.16.8 40.1.323131.3.579.2.462 Unknown [id number] 2.16.8 40.1.211960.3.579.2.462 Unknown [id number] 2.16.8 40.1.267504.3.579.2.462 Unknown [id number] 2.16.8 40.1.632910.3.579.2.462 Unknown [id number] 2.16.8 40.1.502255.3.579.2.462 Unknown [id number] 2.16.8 40.1.957833.3.579.2.462 Unknown [id number] 2.16.8 40.1.037957.3.579.2.462 Unknown [id number] 2.16.8 40.1.034997.3.579.2.462 Unknown [id number] 2.16.8 40.1.123380.3.579.2.462 Unknown [id number] 2.16.8 [id number] Unknown [id number] 2.16.8 [id number] Social History Date Type Detail Facility Start: 08-27-2021 End: 08-03-2023 Tobacco smoking status NHIS Unknown if ever smoked [facility] Start: 06-19-2018 Non-smoker [facility] Start: 1940 Sex Assigned At Female [facility] Start: 08-22-2024 Tobacco smoking status NHIS Never smoked tobacco (finding) [facility] Start: 08-27-2024 End: 09-12-2024 Sex Female (finding) [facility] NEGATED: Highlighted row [facility] Goals Date Patient Goal Desired Activity /State Functional Status Date Assessment Result Facility 07-31-2021 Functional status Ambulates [facility] Work Phone: Mental Status Date Assessment Result Facility 03-01-2023 Cognitive function Touch/Shaking [facility] Work Phone: 07-31-2021 Cognitive function Level Of Cons ciousness Awake;Alert;Appropriate [facility] Work Phone: 07-30-2021 Cognitive function Voice/Name [facility] Work Phone: Clinical Notes 03-01-2023 to 08-06-2024 Note Date & Type Note Facility 08-06-2024 Evaluation note Diagnosis Onset Date Resolution Essential hypertension chronic [facility] 2024 7:49am Hyperlipidemia chronic July 152024 7:49am Inflammatory polyarthropathy chronic August 06 7:49am Lesion of skin of nose acute [facility] 2024 7:53am Tendinitis of extensor tendon of left hand acute August 23, 2024 7:53am [facility] Work Phone: 1(740) 134-624902-24-2025 Evaluation note* Diagnosis Onset Date Resolution Status Admit Date Essential hypertension chronic [facility] 2024 7:49am Hyperlipidemia chronic July 152024 7:49am Inflammatory polyarthropathy chronic August 06, 2024 7:49am Lesion of skin of nose acute [facility] 2024 7:53am Tendinitis of extensor tendo n of left hand acute August 23, 2024 7:53am Essential hypertension chronic [facility] 2024 9:21am Hyperlipidemia chronic August 9:21am [facility] Work Phone: 1(472) 908-302609-19-2023 Procedure [facility]set Date Resolution Status Preop cardiovascular exam ac onofre Essential hypertension chron ic Hyperlipidemia chronic Onychomycosis acute Vitamin D deficiency acute Essential hypertension chron ic Hyperlipidemia [facility] Work Phone: Evaluation note* Diagnosis Onset Date Resolution Status Preop cardiovascular exam ac onofre Essential hypertension chron ic Hyperlipidemia chronic Onychomycosis acute Vitamin D deficiency acute Essential hypertension chron ic Hyperlipidemia chronic Flank pain acute Hematuria acute History of hysterectomy acut e [facility] Work Phone: Evaluation noteNo assessment information available [facility] Work Phone: Evaluation note* Diagnosis Onset Date Resolution Status Onychomycosis acute Vitamin D deficiency acute Essential hypertension chron ic Hyperlipidemia chronic Inflammatory polyarthropathy chronic [facility] Work Phone: Evaluation note* Diagnosis Onset Date Resolution Status Essential hypertension chron ic Hyperlipidemia chronic [facility] Work Phone: Evaluation note* Diagnosis Onset Date Resolution Status Essential hypertension chron ic Hyperlipidemia chronic Dysuria acute Essential hypertension chron ic Hyperlipidemia chronic Inflammatory polyarthropathy chronic [facility] Work Phone: evaluation note* Diagnosis Onset Date Resolution Status Lesion of skin of nose acute Essential hypertension chron ic Hyperlipidemia chronic Inflammatory polyarthropathy chronic Colon cancer screening acute Encounter to discuss test results acute Positive colorectal cancer s creening using Cologuard test acute [facility] Work Phone: Evaluation note* Diagnosis Onset Date Resolution Status Essential hypertension chron ic Hyperlipidemia chronic Encounter to discuss test results acute Nocturnal leg cramps acute Essential hypertension chron ic Hyperlipidemia chronic [facility] Work Phone: History and physical note Author Donnie Fish [facility] March 01, 2023 8:29am Note Date/Time March 01, 2023 8:29am [facility] Medical Records Department [address] [place] [id number] History & Physical Exam 03/01/23 0829 MR#: [id number] Acct: [id number] Name: PHANI DOMÍNGUEZ Rep #:[id number] : 1940 82 From: Donnie adhikari MD PCP: Dr. Cristal Astudillo MD Status:[facility] Location: [place] [address] History and Physical Date of Admission: 03/01/23 Intake Vital Signs 02/17/2309:07 02/24/2307:58 Height 5 ft 2 in 5 ft 2 in Weight: 116 lb 8 oz 118 lb BMI 21.3 21.5 BP 116/73 146/73 H Blood Pressure Location Lt brachial Rt brachial Position Sitting Sitting Respiration 18 17 Pulse 79 67 Pulse Source Monitor Monitor Temp 98.2 F 96.5 F L Temp Source Temporal Temporal Pulse Oximetry (%) 96 100 Oxygen Delivery Method room air room air Intake Visit Reasons: POSITIVE COLOGUARD Chief Complaint: positive cologuard Allergies hydroxychloroquine Allergy (Severe, Verified 02/24/23 11:22) Itchingbee venom protein (honey bee) Allergy (Mild, Verified 02/24/23 11:22) rednessibuprofen Allergy (Mild, Verified 02/24/23 11:22) rashPenicillins Allergy (Mild, Verified 02/24/23 11:22) Rashrosuvastatin [From Crestor] Allergy (Mild, Verified 02/24/23 11:22) muscle pain Medications aspirin 81 mg tablet,delayed release 81 mg PO DAILY@0800 10/27/17 [History Confirmed 02/24/23] atenolol 50 mg tablet 50 mg PO QHS #90 tabs 07/20/22 [Rx Confirmed 02/24/23] cholecalciferol (vitamin D3) 25 mcg (1,000 unit) tablet 2,000 unit PO BID 07/20/22 [History Confirmed 02/24/23] lisinopril 20 mg tablet 20 mg PO QHS #90 tabs 07/20/22 [Rx Confirmed 02/24/23] methotrexate sodium 2.5 mg tablet 12.5 mg PO QWEEK 01/31/23 [History Confirmed 02/24/23] folic tabs 2 mg PO DAILY 02/17/23 [History Confirmed 02/24/23] PFSH Medical History (Updated 02/24/23 @ 14:[address] Donnie Fish MD) Abnormal EKG Arthritis Cancer Cardiology follow-up encounter Carpal tunnel syndrome Colitis Diverticulosis of colon Dysuria Essential hypertension Flank pain Hematuria High cholesterol History of echocardiogram History of Holter monitoring History of kidney stones History of steroid therapy Hyperlipidemia Hypertension Inflammatory polyarthropathy Injury of head and neck Kidney stone Leg cramps Myalgia due to statin Neuropathy Non-smoker Normal stress echocardiogram Onychomycosis Post-menopausal Premature atrial complexes Preop cardiovascular exam Rheumatoid arthritis Uterovaginal prolapse, incomplete Vitamin D deficiency Wears glasses Surgical History (Updated 02/24/23 @ 11:38 by Katlyn Schaeffer) History of cataract surgery History of D&C History of hysterectomy History of hysteroscopy History of lithotripsy History of tonsillectomy and adenoidectomy Hx of basal cell carcinoma excision Hx of cystoscopy Family History Father CAD (coronary artery disease) History of coronary artery bypass surgery AlcoholismSister Anemia Blood clot in vein Diabetes Kidney disease Liver disease CVA (cerebral vascular accident)Mother Asthma Arthritis Bowel disease Osteoporosis Social History Smoking Status: Never smoker alcohol intake: never details: rare substance use type: does not use caffeine: No what type of physical activity do you participate in: walking frequency: 3-4 times per week HPI HPI HPI: Patient is an 82-year-old female here for positive Cologuard. She denies abdominal pain or blood in the stool. She says she occasionally has lower left back pain that radiates around to the front but does not think it is from the abdomen. She denies blood in her stool. She has had a colonoscopy in the past but it was over 10 years ago. ROS General General: No weight change, appetite, fatigue, colon cancer, breast cancer or weakness HEENT HEENT: No difficulty swallowing, eye injury, eye surgery, swollen glands or hoarseness Endo Endocrine: No thyroid disease, diabetes mellitus, thyroid cancer, Hair loss, heat intolerance or cold intolerance Skin Skin: No rash or changing moles Musc Musculoskeletal: Yes back problems, arthritis and rheumatoid arthritis; No gout or joint pain Cardio Cardiovascular: Yes heart disease and high blood pressure; No murmur, pacemaker, atrial fibrillation, heart attack, heart stent, palpitations, shortness of breat with exertion or chest pain Psych Psychiatric: No depression, anxiety or hearing voices Resp Respiratory: No shortness of breath, No sleep apnea, No cough, No COPD, No asthma, No emphysema and No wheezing Gastro Gastrointestinal: Yes abdominal pain, No nausea or vomiting, No diarrhea, No constipation, No blood in stool, No acid reflux, No hemorrhoids, No ulcers, No gallbladder problem and No black,tarry stools [place] Hematologic: No blood thinners, No blood disorders, No bleeding, No anemia and No blood clots Neuro Neurologic: No system reviewed and no additional complaints, except as documented, No as per HPI, No abnormal gait, No abnormal hearing, No abnormal movements, No abnormal speech, No behavioral changes, No burning sensations, No confusion, No convulsions, No disequilibrium, No dizziness, No localized weakness, No frequent falls, No headache(s), No lack of coordination, No loss ofvision, No memory loss, No numbness, No other visual disturbances, No radicular pain, No restless legs, No sensory deficit, No syncope, No tingling, No tremor(s), No weakness and No other Exam Const General: cooperative Orientation: alert and oriented x3 HENMS Head: normal to inspection Neck Neck: normal visual inspection and full ROM Chest Chest palpation & inspection: normal inspection of the chest Resp Effort & Inspection: normal respiratory effort Auscultation: clear to auscultation bilaterally Cardio Rate: regular rate Rhythm: regular rhythm GI Inspection: non-distended Palpation: soft and nontender Skin General: no rashes or lesions noted Neuro General: patient alert and patient oriented x3 Extrem General: full ROM Psych Appearance: grossly normal Mental Status: mental status grossly normal Assessment and Plan Assessment and Plan (1) Positive colorectal cancer screening using Cologuard test: Status: Acute Plan: Recommend colonoscopy due to positive Cologuard. I explained endoscopy in detail to the patient. I explained the risks including but not limited to stroke or heart attack with anesthesia, perforation of the GI tract, bleeding, infection. I explained that any of these could necessitate further emergency surgery. The patient understands and all questions were answered sufficiently. The patient wishes to proceed with procedure. Donnie Fish MD Pager: [facility] [address] [place] [address], [address] [place] [address] Office: I have examined the patient and the H&P has been reviewed. There are no clinicalchanges since date of exam. 03/01/23 08 <Electronically signed by Donnie Fish MD> Cosigner Signature (if applicable): CC: Dr. Donnie Fish MD; Dr. Cristal Astudillo MD~ Signed [facility] Work Phone: Reason for referral (narrative)No reason for referral [facility] Work Phone: Chief Complaint and Reason for Visit Chief Complaint vag hyster, a& p rep air E ORDERS 1 Y FU (MOVED FROM 06/23) vag hyster, a& p repair 6 M FU FLANK PAIN, HEMATURIA Reason for Visit Preop cardiovascular exam Essential hypertension Hyperlipidemia Onychomycosis Vitamin D deficiency Essential hypertension Hyperlipidemia Chief Complaint vag hyster, a& p rep air E ORDERS 1 Y FU (MOVED FROM 06/23) vag hyster, a& p repair 6 M FU FLANK PAIN, HEMATURIA FLANK PAIN Reason for Visit Preop cardiovascular exam Essential hypertension Hyperlipidemia Onychomycosis Vitamin D deficiency Essential hypertension Hyperlipidemia Flank pain Hematuria History of hysterectomy Chief Complaint E ORDERS & PAPER ORD ER/2 DOCTORS Chief Complaint 6 M FU E ORDERS Reason for Visit Onychomycosis Vitamin D deficiency Essential hypertension Hyperlipidemia Inflammatory polyarthropathy Chief Complaint E ORDERS 3 ORDERING DOCTORS/2 WITH E ORDERS 1 Y FU Reason for Visit Essential hypertensi on Hyperlipidemia Chief Complaint E ORDERS 3 ORDERING DOCTORS/2 WITH E ORDERS 1 Y FU 6 M FU SCREENING Reason for Visit Essential hypertensi on Hyperlipidemia Dysuria Essential hypertension Hyperlipidemia Inflammatory polyarthropathy Chief Complaint 3 ORDERING DRS-2EORD ERING/1 PAPER Chief Complaint 3 ORDERING DRS-2EORD ERING/1 PAPER 6 M FU Discuss treatment POSITIVE COLOGUARD Reason for Visit Lesion of skin of no se Essential hypertension Hyperlipidemia Inflammatory polyarthropathy Colon cancer screening Encounter to discuss test results Positive colorectal cancer screening using Cologuard test Chief Complaint 3 ORDERING DRS-2EORD ERING/1 PAPER 6 M FU Discuss treatment POSITIVE COLOGUARD 2 ordering doctors/eorder & paper Reason for Visit Lesion of skin of no se Essential hypertension Hyperlipidemia Inflammatory polyarthropathy Colon cancer screening Encounter to discuss test results Positive colorectal cancer screening using Cologuard test Chief Complaint 6 M FU Discuss treatment POSITIVE COLOGUARD 2 ordering doctors/eorder & paper Reason for Visit Lesion of skin of no se Essential hypertension Hyperlipidemia Inflammatory polyarthropathy Colon cancer screening Encounter to discuss test results Positive colorectal cancer screening using Cologuard test Chief Complaint 2 ordering doctors/e order & paper E ORDERS Chief Complaint E ORDERS 1 Y FU 6 M FU SCREENING INT LABS Reason for Visit Essential hypertensi on Hyperlipidemia Encounter to discuss test results Nocturnal leg cramps Essential hypertension Hyperlipidemia Chief Complaint Admit Date INT LABS June 22, 2024 6 :06am Annual/Physical August 06, 2024 7:49am SCREENING August 16, 2024 7:58 am LT Hand Edema August 23, 2024 7:5 3am Reason for Visit Admit Date Essential hypertension August 06 7:49am Hyperlipidemia August 06, 2024 7:49am Inflammatory polyarthropathy August 062024 7:49am Lesion of skin of nose August 23, 2024 7:53am Tendinitis of extensor tendon of left soliz nd August 23, 2024 7:53am Chief Complaint Admit Date INT LABS June 22, 2024 6 :06am Annual/Physical August 06, 2024 7:49am SCREENING August 16, 2024 7:58 am LT Hand Edema August 23, 2024 7:5 3am 1 Y FU September 06, 2024 9:2 1am E ORDERS September 07, 2024 5:5 7am Reason for Visit Admit Date Essential hypertension August 06 7:49am Hyperlipidemia August 06, 2024 7:49am Inflammatory polyarthropathy August 062024 7:49am Lesion of skin of nose August 23, 2024 7:53am Tendinitis of extensor tendon of left soliz nd August 23, 2024 7:53am Essential hypertension September 06, 2024 9:21am Hyperlipidemia September 06, 2024 9:2 1am Chief Complaint Admit Date INT LABS June 22, 2024 6 :06am Annual/Physical August 06, 2024 7:49am SCREENING August 16, 2024 7:58 am LT Hand Edema August 23, 2024 7:5 3am 1 Y FU September 06, 2024 9:2 1am E ORDERS September 07, 2024 5:5 7am TICK BITE ON BACK OF HEAD October 08 1:25pm Family History No Family History Records Found Relationship Condition Age at Onset Recorded Date/T fernando father Coronary artery disease Unknown History of coronary artery bypass surgery Unknown Alcoholism Unknown sister Anemia Unknown Venous thrombosis Unknown Diabetes mellitus Unknown Kidney disorder Unknown Disorder of liver Unknown Cerebrovascular accident (CVA) Unknown mother Asthma Unknown Arthritis Unknown Disorder of intestine Unknown Osteoporosis Unknown Advance Directives No Advanced Directives Records Found Advance Directive Response Recorded Date/ Time Living Will Yes July 30 12:18pm Power of Health Advisor Yes July 30, 2021 12:18pm Advance Directive Response Recorded Date/ Time Living Will Yes July 30 11:18am Power of Health Advisor Yes July 30, 2021 11:18am Advance Directive Response Recorded Date/ Time Name of Medical Power of Health Advisor LISSETT DOMÍNGUEZ February 24, 2023 11:25am Living Will Yes February 24, 2023 11:25am Power of Health Advisor Yes February 11:25am Advance Directive Response Recorded Date/ Time Name of Medical Power of Health Advisor LISSETT DOMÍNGUEZ February 24, 2023 10:25am Living Will Yes February 24, 2023 10:25am Power of Health Advisor Yes February 10:25am Advance Directive Response Recorded Date/ Time Living Will Yes February 24, 2023 10:25am Power of Health Advisor Yes February 10:25am Advance Directive Response Recorded Date/ Time Living Will Yes February 24, 2023 11:25am Power of Health Advisor Yes February 11:25am Advance Directive Response Recorded Date/ Time Living Will Yes February 24, 2023 11:25am Do you have a Healthcare Power of Health Advisor? Yes February 24, 2023 11:25am Summary Purpose Additional Source Comments Goals (unrecognized section and content) Goals may be documented in a n alternate sectionGoals may be documented in an alternate sectionGoals may be documented in an alternate sectionGoals may be documented in an alternate sectionGoals may be documented in an alternate sectionGoals may be documented in an alternate sectionGoals may be documented in an alternate sectionGoals may be documented in an alternate sectionGoals may be documented in an alternate sectionGoals may be documented in an alternate sectionGoals may be documented in an alternate sectionGoals may be documented in an alternate sectionGoals may be documented in an alternate section Care Teams (unrecognized sec tion and content) Team Status: Active Member Role Status Dates Dr. Pérez Eddy MD Family Provider Active Dr. Cristal Astudillo MD Primary Care Provider Active Team Status: Inactive Member Role Status Dates Dr. Cristal Astudillo MD Primary Care Provider, Referri ng Provider Active Dr. Marcial Moe MD Attending Provider Active Team Status: Inactive Member Role Status Dates Dr. Cristal Astudillo MD Primary Care Pro vider, Attending Provider, Referring Provider Active Team Status: Inactive Member Role Status Dates Dr. Cristal Astudillo MD Primary Care Provider Active Dr. Marcial Moe MD Attending Provider, Referring Pro vider Active Dr. Morelia Higgins MD Other Provider Active Team Status: Inactive Member Role Status Dates Dr. Cristal Astudillo MD Primary Care Provider, Attendi ng Provider Active Team Status: Inactive Member Role Status Dates Dr. Cristal Astudillo MD Primary Care Provider Active Dr. Morelia Higgins MD Attending Provider, Referring Provider Active Team Status: Inactive Member Role Status Dates Dr. Cristal Astudillo MD Primary Care Provider Active Dr. Morelia Higgins MD Attending Provider, Referring Provider Active Dr. Marcial Moe MD Other Provider Active Team Status: Inactive Member Role Status Dates Dr. Cristal Astudillo MD Primary Care Provider, Referri ng Provider Active Dr. Donnie Fish MD Attending Provider Active Team Status: Active Member Role Status Dates Dr. Cristal Astudillo MD Primary Care Provider, Referri ng Provider Active Dr. Donnie Fish MD Attending Provider, Other Provider Active Team Status: Inactive Member Role Status Dates Dr. Cristal Astudillo MD Primary Care Provider Active Sathish Brewster FRAMING SPECIALIST, FRAMING SPECIALIST-C Attending Provider, Referring Pro vider Active Dr. Morelia Higgins MD Other Provider Active Team Status: Inactive Member Role Status Dates Dr. Cristal Astudillo MD Primary Care Provider Active Sathish Brewster FRAMING SPECIALIST, FRAMING SPECIALIST-C Attending Provider, Referring Pro vider Active Team Status: Inactive Member Role Status Dates Dr. Cristal Astudillo MD Primary Care Provider, Referri ng Provider Active Sathish Brewster FRAMING SPECIALIST, FRAMING SPECIALIST-C Attending Provider Active Team Status: Active Member Role Status Dates Dr. Cristal Astudillo MD Primary Care Pro vider, Attending Provider, Referring Provider Active Team Status: Active Member Role Status Dates Dr. Cristal Astudillo MD Primary Care Provider Active Team Status: Inactive Member Role Status Dates Dr. Cristal Astudillo MD Primary Care Provider Active Start: May 08, 2024 End: May 08, 2024 Dr. Morelia Higgins MD Attending Provider Active Start: May 08, 2024 End: May 08, 2024 Dr. Morelia Higgins MD Referring Provider Active Start: May 08, 2024 End: May 08, 2024 Team Status: Inactive Member Role Status Dates Dr. Cristal Astudillo MD Primary Care Provider Active Start: June 22, 2024 End: June 22, 2024 Sathish Brewster FRAMING SPECIALIST, FRAMING SPECIALIST-C Attending Provider Active S tart: June 22, 2024 End: June 22, 2024 Sathish Brewster FRAMING SPECIALIST, FRAMING SPECIALIST-C Referring Provider Active S tart: June 22, 2024 End: June 22, 2024 Team Status: Inactive Member Role Status Dates Dr. Cristal Astudillo MD Primary Care Provider Active Start: August 02, 2024 End: August 02, 2024 Dr. Morelia Higgins MD Attending Provider Active Start: August 02, 2024 End: August 02, 2024 Dr. Morelia Higgins MD Referring Provider Active Start: August 02, 2024 End: August 02, 2024 Team Status: Inactive Member Role Status Dates Dr. Cristal Astudillo MD Primary Care Provider Active Start: August 06, 2024 End: August 06, 2024 Dr. Cristal Astudillo MD Attending Provider Active Start: August 06, 2024 End: August 06, 2024 Team Status: Inactive Member Role Status Dates Dr. Cristal Astudillo MD Primary Care Provider Active Start: August 16, 2024 End: August 16, 2024 Dr. Cristal Astudillo MD Attending Provider Active Start: August 16, 2024 End: August 16, 2024 Dr. Cristal Astudillo MD Referring Provider Active Start: August 16, 2024 End: August 16, 2024 Team Status: Inactive Member Role Status Dates Dr. Cristal sAtudillo MD Primary Care Provider Active Start: August 23, 2024 End: August 23, 2024 Dr. Cristal Astudillo MD Attending Provider Active Start: August 23, 2024 End: August 23, 2024 Team Status: Inactive Member Role Status Dates Dr. Cristal Astudillo MD Primary Care Provider Active Start: September 06, 2024 End: September 06, 2024 Dr. Cristal Astudillo MD Referring Provider Active Start: September 06, 2024 End: September 06, 2024 Dr. Marcial Moe MD Attending Provider Active S tart: September 06, 2024 End: September 06, 2024 Team Status: Inactive Member Role Status Dates Dr. Cristal Astudillo MD Primary Care Provider Active Start: September 07, 2024 End: September 07, 2024 Dr. Cristal Astudillo MD Attending Provider Active Start: September 07, 2024 End: September 07, 2024 Dr. Cristal Astudillo MD Referring Provider Active Start: September 07, 2024 End: September 07, 2024 Team Status: Inactive Member Role Status Dates Dr. Cristal Astudillo MD Primary Care Provider Active Start: October 08, 2024 End: October 08, 2024 Dr. Cristal Astudillo MD Referring Provider Active Start: October 08, 2024 End: October 08, 2024 Zafar ROWLAND PA Attending Provider Active Start: October 08, 2024 End: October 08, 2024 Team Status: Inactive Member Role Status Dates Dr. Cristal Astudillo MD Primary Care Provider Active Start: October 12, 2024 End: October 12, 2024 Dr. Morelia Higgins MD Attending Provider Active Start: October 12, 2024 End: October 12, 2024 Dr. Morelia Higgins MD Referring Provider Active Start: October 12, 2024 End: October 12, 2024 INFORMATION SOURCE (unrecogn ized section and content) DATE CREATED AUTHOR 10/20/2024 [facility] FOR RECORDS PERTAINING TO PATIENTS WHO ARE OR HAVE BEEN ENROLLED IN A CHEMICAL DEPENDENCY/SUBSTANCEABUSE PROGRAM, SOME INFORMATION MAY BE OMITTED. This clinical summary was aggregated from multiple sources. Caution should be exercised in using it in the provision of clinical care. This summary normalizes information from multiple sources, and as a consequence, information in this document may materially change the coding, format and clinical context of patient data. In addition, data may be omitted in some cases. CLINICAL DECISIONS SHOULD BE BASED ON THE PRIMARY CLINICAL RECORDS. [employer] provides no warranty or guarantee of the accuracy or completeness of information in this document.
[2025-01-03 08:26] LABS: Hematocrit 37.6 % (37-47); Hemoglobin 12.1 g/dL (12.0-15.0); Immature Granulocytes Count 0.090 X10^3/uL (0.0-0.0); Mean Corp Hgb Conc 32.2 g/dL (32-36); Mean Corpuscular Volume 94.0 fL (81-99); Mean Platelet Vol. 10.2 fl (6.2-12.0); NRBC Flagged by Analyzer 0 % (0-5); Platelet Count 353 K/mm3 (150-450); RBC Distribution Width CV 13.4 % (11.6-14.6); RBC Distribution Width SD 45.9 fl (35.1-43.9); Red Blood Count 4.00 M/mm3 (4.2-5.4); White Blood Count 9.3 K/mm3 (4.4-11.0)
[2025-01-03 08:42] LABS: AST(SGOT) 19 U/L (<=31); Alanine Aminotransfer ALT/SGPT 21 U/L (<=34); Albumin, Serum 3.6 g/dL (3.4-4.8); Alkaline Phosphatase 79 U/L (35-104); Anion Gap 10 (5-15); BUN 21 mg/dL (4-19); BUN/Creat Ratio 23.9 RATIO (10-20); CRP 5.81 mg/L (0.0-3.0); Calcium,Total 9.0 mg/dL (7.6-11.0); Carbon Dioxide 23.2 mmol/L (21.0-32.0); Chloride 106 mmol/L (98-108); Globulin 2.7 g/dL (2.2-4.2); Glucose 92 mg/dL (70-99); Potassium 4.1 mmol/L (3.3-5.1)
== END | disposition home or self-care (01) ==
LOC: LAB 05:58
PROVIDERS: PCP Internal Medicine; Referring Provider Internal Medicine Rheumatology; Visit Provider Internal Medicine Rheumatology
DX: M06.00 Rheumatoid arthritis without rheumatoid factor, unspecified site (principal); M18.0 Bilateral primary osteoarthritis of first carpometacarpal joints; Z79.899 Other long term (current) drug therapy
CPT/HCPCS: 36415; 80053; 85025; 85652; 86140

== ENCOUNTER → 2025-02-06 | Outpatient (CLI) | payer MEDICARE, OTHER, SELFPAY ==
--- OUTSIDE RECORDS SUMMARY | 2025-02-06 07:13 | XMS RPT_ITS | CCD ---
Author Organization [facility] CliniSyin Care Team Providers Care Office Cleaner Name Role Phone Dr. Cristal Astudillo Primary Care Provider Dr. Marcial Moe Attending Provider Dr. Sathish Chan Referring Provider Dr. Pérez Eddy Referring Provider [facility] PACE ANALYST, EDDIE Lisa Attending Provider Dr. Cristal Astudillo [...] Referring Provider Dr. Donnie Fish Attending Provider [phone] Dr. Donnie Fish Other Provider Dr. Cristal Astudillo Primary Care Provider Dr. Cristal Astudillo Attending Provider Dr. Cristal Astudillo Referring Provider Dr. Donnie Fish Attending Provider Dr. Donnie Fish Other Provider Dr. Cristal Astudillo Primary Care Provider Dr. Cristal Astudillo Referring Provider Roof PACE ANALYST, PACE ANALYST-C Sathish Lisa Attending Provider Dr. Cristal Astudillo Attending Provider Dr. Cristal Astudillo Primary Care Provider Dr. Cristal Astudillo Referring Provider Roof PACE ANALYST, PACE ANALYST-C Sathish Lisa Attending Provider Dr. Cristal Astudillo Attending Provider Wilda BINGHAM, Dr. Bee Primary Care Provider Gisela BINGHAM, Dr. Thibodeaux Attending Provider Gisela BINGHAM, Dr. Thibodeaux Referring Provider Roof PACE ANALYST-C, Sathish Lisa Attending Provider Roof PACE ANALYST-C, Sathish Lisa Referring Provider Wilda BINGHAM, Dr. Bee Attending Provider Wilda BINGHAM, Dr. Bee Referring Provider Wilda BINGHAM, Dr. Bee Primary Care Provider Gisela BINGHAM, Dr. Thibodeaux Attending Provider Gisela BINGHAM, Dr. Thibodeaux Referring Provider Abhi BINGHAM, Dr. Ceja Attending Provider Zafar See Attending Provider Wilda BINGHAM, Dr. Bee Primary Care Provider Wilda BINGHAM, Dr. Bee Referring Provider Gisela BINGHAM, Dr. Thibodeaux Attending Provider Gisela BINGHAM, Dr. Morelia Referring Provider Wilda BINGHAM, Dr. Bee Attending Provider Wilda, Cristal Primary Care Unavailable Wilda, Cristal Referring Unavailable Wilda, Cristal Attending Unavailable Wilda, Cristal Primary Care Unavailable Wilda, Cristal Referring Unavailable Wilda, Cristal Attending Unavailable Wilda, Cristal Primary Care Unavailable Jed PACE ANALYST, Mckenna Attending Unavailable Wilda, Cristal Primary Care Unavailable Roof PACE ANALYST, Sathish H Referring Unavailable Roof PACE ANALYST, Sathish H Consulting Unavailable Abhi, Brawley Attending Unavailable Wilda, Cristal Attending Unavailable Wilda, Cristal Primary Care Unavailable Wilda, Cristal Primary Care Unavailable Wilda, Cristal Referring Unavailable Roof PACE ANALYST, Sathish H Attending Unavailable Wilda, Cristal Primary Care Unavailable Wilda, Cristal Attending Unavailable Wilda, Cristal Primary Care Unavailable Wilda, Cristal Attending Unavailable Wilda, Cristal Primary Care Unavailable Wilda, Cristal Referring Unavailable Abhi, Brawley Attending Unavailable Wilda, Cristal Primary Care Unavailable Wilda, Cristal Referring Unavailable Zafar See Attending Unavailable Wilda, Cristal Primary Care Unavailable Vellanki, Morelia Referring Unavailable Vellanki, Morelia Attending Unavailable Wilda, Cristal Primary Care Unavailable Vellanki, Morelia Referring Unavailable Vellanki, Morelia Attending Unavailable Wilda, Cristal Primary Care Unavailable Vellanki, Morelia Referring Unavailable Vellanki, Morelia Attending Unavailable Wilda, Cristal Primary Care Unavailable Roof PACE ANALYST, Sathish H Referring Unavailable Roof PACE ANALYST, Sathish H Attending Unavailable Wilda, Cristal Primary Care Unavailable Roof PACE ANALYST, Sathsih H Referring Unavailable Roof PACE ANALYST, Sathish Lisa Attending Unavailable Wilda, Cristal Primary Care Unavailable Vellanki, Morelia Referring Unavailable Vellanki, Morelia Attending Unavailable Allergies Allergy Classification Reported Allergen(s) Allergy Type Date of Onset Reaction(s) Facility (19 sources) Ibuprofen Drug Allergy 08-28-19 [facility] (20 sources) Penicillins; Translations: [Penicillins] Allergy to substance 08-28-19 [facility] (19 sources) rosuvastatin Drug Allergy 08-28-19 muscle pain [facility] (19 sources) bee venom protein (honey bee) Allergy to substance 08-28-19 redness [facility] (11 sources) Hydroxychloroquine Drug Allergy 03-01-20 23 Itching [facility] (9 sources) Pravastatin Drug Allergy 05-17-20 23 Myalgias/leg cramps. [facility] (1 source) Hydroxychloroquine Drug Allergy 02-05-20 [facility] (1 source) Ibuprofen Drug Allergy 02-05-20 [facility] (1 source) Pravastatin Drug Allergy 02-05-20 [facility] (1 source) rosuvastatin Drug Allergy 02-05-20 [facility] (1 source) bee venom protein (honey bee) Drug allergy (disorder) 02-05-20 [facility] Medications Current Medications Medication Drug Class(es) Dates Sig (Normalized) Sig (Original) aspirin 81 mg delayed release oral tablet (19 sources) Platelet Aggregation Inhibitor, Nonsteroidal Anti-inflammatory Drug Start: 10-27-2017 take 1 tablet by mouth once daily Aspirin 81 MG tablet Active 81 mg PO DAILY@08October 27, 2017 12:00am cholecalciferol 0.025 mg oral [...] 26, 2017 12:00am July 16, 2021 9:54am estradiol 0.1 mg/ml vaginal cream (5 sources) Estrogen Start: 08-06-2024 Estradiol 0.01 % (0.1 mg/gram) cream Active 1 g VAGINAL TWICE A WEEK August 06, 2024 1:00am folic acid 1 mg oral tablet (5 sources) Start: 08-06-2024 take 2 tablets by mouth once daily Folic Acid 1 mg tablet Active 2 mg PO daily August 06, 2024 1:00am methotrexate 2.5 mg oral tablet (20 sources) Folate Analog Metabolic Inhibitor Start: 09-06-2024 [...] red yeast rice 600 mg oral capsule (5 sources) Start: 08-06-2024 take 1 capsule by mouth once daily Red Yeast Rice 600 mg capsule Active 600 mg PO daily August 06, 2024 1:00am give with meal/snack Completed/Discontinued Medications Medication Drug Class(es) Dates Sig (Normalized) Sig (Original) acetaminophen 500 mg oral tablet (19 sources) Start: 06-23-2018 End: 06-19-2020 take 1 tablet by mouth every four hours as needed for pain Acetaminophen 500 MG tablet Discontinued 500 mg PO EVERY 4 HOURS NEEDED as needed for Pain 20 0 June 23, 2018 1:00am June 19, 2020 10:35am atenolol 50 mg oral tablet (20 sources) beta-Adrenergic Renetta Start: 10-27-2017 End: 10-09-2024 take 1 tablet by mouth at bedtime Atenolol 50 mg tablet Discontinued 50 mg PO AT BEDTIME 90 3 January 18, 2024 8:00am September 06, 2024 9:39am atorvastatin 10 mg oral tablet (9 sources) HMG-CoA Reductase Inhibitor Start: 05-19-2023 End: 07-21-2023 take 5 mg by mouth once daily Atorvastatin 10 mg tablet Discontinued 5 mg PO DAILY 15 May 19, 2023 1:00am July 21, 2023 9:55am Start: 05-19-2023 End: 07-21-2023 take 5 mg by mouth once daily Atorvastatin Discontinue d 5 MG PO DAILY May 19, 2023 1:00am July 21, 2023 9:55am docusate sodium 100 mg oral tablet (19 sources) Start: 07-31-2021 End: 08-27-2021 take 1 tablet by mouth twice daily as needed for constipation Docusate Sodium 100 mg tablet Discontinued 100 mg PO TWICE A DAY as needed for constipation 60 1 July 31, 2021 1:00am August 27, 2021 8:37am doxycycline monohydrate 100 mg oral capsule (3 sources) Tetracyclin e-class Drug Start: 10-08-2024 End: 02-04-2025 take 2 capsules by mouth twice daily Doxycycline Monohydrate 100 mg capsule Discontinued 200 mg PO TWICE A DAY 2 0 October 08, 2024 12:00am February 04, 2025 7:51am Estriol (5 sources) Start: 02-01-2024 End: 03-07-2024 Estriol (Bulk) [...] 11:48am March 24, 2021 12:10pm folic tabs (20 sources) Start: 02-17-2023 End: 07-21-2023 take 2 [...] daily hydroxychloroquine sulfate 200 mg oral tablet (19 sources) Antimalarial, Antirheumatic Agent Start: 06-19-2020 End: [...] tablet Discontinued 20 mg PO AT BEDTIME 90 3 July 21, 2023 10:41am March 07, 2024 11:00am Start: 12-13-2018 End: 07-20-2022 take 1 tablet by mouth at bedtime Lisinopril 10 mg tablet Discontinued 10 mg PO AT BEDTIME 90 February 04, 2022 11:53am July 20, 2022 12:21pm metroNIDAZOLE 0.01 mg/mg topical gel (17 sources) Nitroimidazole Antimicrobial Start: 09-11-2021 End: 07-20-2022 [...] mg tablet Discontinued 40 mg PO DAILY 90 July 20, 2022 12:20pm February 17, 2023 9:09am Start: 06-19-2020 End: 07-20-2022 take 1 tablet by mouth once daily Pravastatin 80 mg tablet Discontinued 80 mg PO DAILY 90 August 15, 2020 9:17am July 16, 2021 10:24am Start: 10-27-2017 End: 06-19-2020 take 1 tablet by mouth at bedtime Pravastatin 40 MG tablet Discontinued 40 mg PO AT BEDTIME October 27, 2017 12:00am June 19, 2020 10:33am Vit C,P-Kd-Uaall-Lutein-Zeax an (14 sources) Start: 12-26-2017 End: 06-19-2020 Vit C,V-Cp-Igpap-Lutein-Zeax an Discontinued 1 EACH PO DAILY December 26, 2017 1:22pm June 19, 2020 10:34am Start: 12-26-2017 End: 06-19-2020 Vit C,J-Fd-Zzwlz-Lutein-Zeax an Discontinued 1 EACH PO DAILY December 25, 2017 11:00pm June 19, 2020 9:34am Start: 12-26-2017 End: 06-19-2020 Vit C,R-Jd-Jsbvk-Lutein-Zeax an Discontinued 1 EACH PO DAILY December 26, 2017 12:00am June 19, 2020 10:34am Vit C,O-Jt-Sosvz-Lutein-Zeax an 1 EACH capsule (5 sources) Start: 12-26-2017 End: 06-19-2020 take 1 capsule by mouth once daily Vit C,Y-Zh-Khncl-Lutein-Zeaxan 1 EACH capsule Discontinued 1 NMA PO DAILY December 26, 2017 12:00am June 19, 2020 10:34am Problems Active Problems Problem Classification Problem Date Documented Da te Episodic/Chronic Abdominal pain (20 sources) Flank pain; Translations: [Unspecified abdominal pain] Episodic Administrative/social admission (16 sources) Follow-up status; Translations: [Person consulting for explanation of examination or test findings] 02-17-2023 Episodic Calculus of urinary tract (19 sources) Kidney stone; Translations: [Calculus of kidney] 07-15-2022 Episodic Cardiac dysrhythmias (20 sources) Atrial premature complex ; Translations: [Atrial premature depolarization] Onset: 4 08-21-2020 Chronic Cardiac dysrhythmias (20 sources) Palpitations; Translations: [Palpitations] 06-14-2020 Episodic Deficiency and other anemia (1 source) Anemia; Translations: [Anemia, unspecified] 02-04-2025 Episodic Deficiency and other anemia (1 source) Anemia, unspecified; Translations: [Anemia, unspecified] Onset: 5 Episodic Disorders of lipid metabolism (20 sources) Hyperlipidemia; Translations: [Hyperlipidemia, unspecified] Onset: 4 Chronic Diverticulosis and diverticulitis (19 sources) Diverticulosis of colon; Translations: [Diverticulosis of large intestine without perforation or abscess without bleeding] 08-21-2020 Chronic Essential hypertension (20 sources) Essential hypertension; Translations: [Essential (primary) hypertension] Onset: 4 Chronic Genitourinary symptoms and ill-defined conditions (20 sources) Blood in urine; Translations: [Hematuria, unspecified] Episodic Mycoses (20 sources) Onychomycosis; Translations: [Tinea unguium] Episodic Nutritional deficiencies (20 sources) Vitamin D deficiency; Translations: [Vitamin D deficiency, unspecified] Onset: 5 Chronic Nutritional deficiencies (2 sources) Cobalamin deficiency; Translations: [Deficiency of other specified B group vitamins] Onset: 5 02-04-2025 Episodic Other connective tissue disease (7 sources) Cramp in lower limb; Translations: [Sleep related leg cramps] 08-03-2023 Chronic Other connective tissue disease (2 sources) Sleep related leg cramps; Translations: [Sleep related leg cramps] 08-03-2023 Chronic Other connective tissue disease (19 sources) Myalgia caused by statin; Translations: [Myalgia, unspecified site] 08-21-2020 Episodic Other connective tissue disease (8 sources) Tendinitis of extensor tendon of left hand; Translations: [Other enthesopathies, not elsewhere classified] 08-23-2024 Episodic Other gastrointestinal disorders (11 sources) Stool DNA-based colorectal cancer screening positive; Translations: [Other fecal abnormalities] 02-24-2023 Episodic Other gastrointestinal disorders (3 sources) Other fecal abnormalities; Translations: [Abnormal feces] 02-24-2023 Episodic Other nervous system disorders (19 sources) Carpal tunnel syndrome; Translations: [Carpal tunnel syndrome, unspecified upper limb] 08-21-2020 Chronic Other screening for suspected conditions (not mental disorders or infectious disease) (20 sources) Electrocardiogram abnormal; Translations: [Abnormal electrocardiogram [ECG] [EKG]] Onset: 5 12-11-2018 Episodic Comment on above: Short CO Other skin disorders (14 sources) Lesion of skin of nose; Translations: [Disorder of the skin and subcutaneous tissue, unspecified] 01-31-2023 Episodic Residual codes; unclassified (1 source) Acquired absence of both cervix and uterus; Translations: [Acquired absence of both cervix and uterus] Episodic Rheumatoid arthritis and related disease (20 sources) Inflammatory polyarthropathy; Translations: [Inflammatory polyarthropathy] Onset: 5 Chronic Past or Other Problems Problem Classification Problem Date Documented Da te Episodic/Chronic Diabetes mellitus without complication (1 source) Hyperglycemia, unspecified; Translations: [Hyperglycemia, unspecified] Onset: 08-06-2024 Episodic Nonspecific chest pain (7 sources) Chest pain; Translations: [Chest pain, unspecified] Onset: 04-24-2024 03-07-2024 Episodic Other connective tissue disease (1 source) Other enthesopathies, not elsewhere classified; Translations: [Other enthesopathies, not elsewhere classified] Onset: 08-27-2024 Episodic Other skin disorders (4 sources) Disorder of the skin and subcutaneous tissue, unspecified; Translations: [Unspecified disorder of skin and subcutaneous tissue] Onset: 08-27-2024 01-31-2023 Episodic Results Test Name Value Interpretation Reference Range Facility MR/IMLeodan 02-04-2025 MR/BMS.IMB [facility] [address] [facility] [place] [address] OFFICE VISIT Date of Service: 02/04/25 MR#: [id number] Acct: [id number] Name: PHANI DOMÍNGUEZ Rep #: [id number] : 1940 Provider: Dr. Cristal milian MD Age/Sex: 84/F Location: [facility] Status: Signed Intake Vital Signs 08/06/24 07:59 09/06/24 09:32 02/04/25 07:55 Height 5 ft 2 in 5 ft 2 in 5 ft 2 in Weight: 121 lb BMI 22.1 BP 116/72 Blood Pressure Location Lt brachial Position Sitting Respiration 16 Pulse 70 Pulse Source Monitor Temp 97.8 F Temp Source Temporal Pulse Oximetry (%) 95 Oxygen Delivery Method room air Intake Visit Reasons: 6 M FU Chief Complaint: no acute concerns Criminal Justice Lawyer Required: No Accompanied by: Self Is patient in pain?: No Allergies hydroxychloroquine Allergy (Severe, Verified 02/04/25 07:51) Itching bee venom protein (honey bee) Allergy (Mild, Verified 02/04/25 07:51) redness ibuprofen Allergy (Mild, Verified 02/04/25 07:51) rash Penicillins Allergy (Mild, Verified 02/04/25 07:51) Rash rosuvastatin (From Crestor) Allergy (Mild, Verified 02/04/25 07:51) muscle pain pravastatin Adverse Reaction (Intermediate, Verified 02/04/25 07:51) Myalgias/leg cramps. Medications ???Medication ???Instructions ???Recorded ???Confirmed ???Type aspirin 81 mg tablet,delayed 81 mg PO DAILY@0800 18 02/04 History release cholecalciferol (vitamin D3) 25 1,000 unit PO BID 07/21/23 5 History mcg (1,000 unit) tablet lisinopril 20 mg tablet 20 mg PO QHS #90 tabs 03/07/24 Rx estradiol 0.01% (0.1 mg/gram) 1 g vaginal 2XW 08/06/24 02/04/25 History vaginal cream folic acid 1 mg tablet 2 mg PO QDAY 08/06/24 02/04/25 His tory red yeast rice 600 mg capsule 600 mg PO QDAY 08/06/24 02/04/25 H istory methotrexate sodium 2.5 mg tablet 12.5 mg PO QWEEK 09/06/24 5 History atenolol 50 mg tablet 50 mg PO QHS #90 TABLETS 10/09/24 02/04/25 Rx Have you fallen in the past [...] times per week HPI HPI Chief Complaint: no acute concerns Details: PHANI DOMÍNGUEZ, is a 84 F who presents to the office today for 6-month follow-up. Patient is a 84-year-old female has a history of mild hypertension, controlled on lisinopril 20 mg daily, ate nolol 50 mg p.o. nightly. Takes aspirin 81 mg daily for primary prevention, vitamin D, estradiol, methotrexate/folic acid regimen per rheumatology. Red yeast rice extract. Has been intolerant to statin drugs. Overall she states she does not have any new specific concerns or issues. Has some tendinitis issues and inflammatory polyarthropathy that she follows with Dr. Higgins. She is on methotrexate 12.5 mg weekly as well as folic acid. She notes that she had a very mild drop in her hemoglobin back in October, it was a little better in December. She notes a very subtle sense of lack of energy, drained feeling particularly in her legs. With any significant degree of activity. It takes a fair amount of activity to bring that symptom about but she does feel that it is di (more content not included)... Normal [facility] Absolute lymphocyte countOrd ered By: Morelia Higgins on 01-03-2025 Lymphocytes Auto (Unsp spec) [#/Vol] 1.46 10*3/uL 0.83-4.51 [facility] Absolute neutrophil countOrd ered By: Morelia Higgins on 01-03-2025 Neutrophils (Bld) [#/Vol] 6.8 10*3/uL 2.0-7.7 [facility] Anion gap in Serum or Plasma Ordered By: Morelia Higgins on 01-03-2025 Anion gap [Moles/Vol] 10 mmol/L 5-15 [facility] Automated lymphocyte count a s percentage of total leukocytesOrdered By: Morelia Higgins on 01-03-2025 Lymphocytes/100 WBC Auto (Unsp spec) 15.7 % Low 19-41 [facility] BUN/creatinine ratioOrdered By: Morelia Higgins on 01-03-2025 Urea nitrogen/Creatinine [Mass ratio] 23.9 mg/mg High 10-20 [facility] Basophil percentageOrdered B y: Morelia Hawthornegermán on 01-03-2025 Basophils/100 WBC (Bld) 0.6 % 0-1 [facility] Bilirubin, totalOrdered By: Morelia Higgins on 01-03-2025 Bilirubin [Mass/Vol] 0.77 mg/dL 0.00-1.30 [facility] CBC W/Diff, Automatedon 12-12 Absolute Lymph 1.46 X10 3/uL Normal 0.83-4.51 [facility] Comment on above: Performed By: #### L 501.6710, L101.9900, L500.4050, L100.0100 #### [facility] [address] [place], [address] Absolute Neut 6.8 X10 3/uL Normal 2.0-7.7 [facility] Comment on above: Performed By: #### L [id number], L101.9900, L500.4050, L100.0100 #### [facility] [address] [place], [address] Basophils/100 WBC (Bld) 0.6 % Normal 0-1 [facility] Comment on above: Performed By: #### L 501.6710, L101.9900, L500.4050, L100.0100 #### [facility] [address] [place], [address] Eosinophils/100 WBC (Bld) 2.6 % Normal 0-5 [facility] Comment on above: Performed By: #### L 501.6710, L101.9900, L500.4050, L100.0100 #### [facility] [address] [place], [address] Erythrocyte distribution width (RBC) [Ratio] 13.4 % Normal 11.6-14.6 [facility] Comment on above: Performed By: #### L 501.6710, L101.9900, L500.4050, L100.0100 #### [facility] [address] [place], [address] Hematocrit (Bld) [Volume fraction] 37.6 % Normal 37-47 [facility] Comment on above: Performed By: #### L 501.6710, L101.9900, L500.4050, L100.0100 #### [facility] [address] [place], [address] Hemoglobin (Bld) [Mass/Vol] 12.1 g/dL Normal 12.0-15.0 [facility] Comment on above: Performed By: #### L 501.6710, L101.9900, L500.4050, L100.0100 #### [facility] [address] [place], [address] IG% 1.000 High 0.0-0.9 [facility] Comment on above: Result Comment: IG% - Immature Granulocytes (promyelocytes, myelocytes and metamyelocytes) > 1% indicates that a LEFT SHIFT is Present. Performed By: #### L 501.6710, L101.9900, L500.4050, L100.0100 #### [facility] [address] [place], [address] Lymphocytes/100 WBC (Bld) 15.7 % Low 19-41 [facility] Comment on above: Performed By: #### L 501.6710, L101.9900, L500.4050, L100.0100 #### [facility] [address] [place], [address] MCH (RBC) [Entitic mass] 30.3 pg Normal 27.0-32.0 [facility] Comment on above: Performed By: #### L 501.6710, L101.9900, L500.4050, L100.0100 #### [facility] [address] [place], [address] MCHC (RBC) [Mass/Vol] 32.2 g/dL Normal 32-36 [facility] Comment on above: Performed By: #### L 501.6710, L101.9900, L500.4050, L100.0100 #### [facility] [address] [place], [address] MCV (RBC) [Entitic vol] 94.0 fL Normal 81-99 [facility] Comment on above: Performed By: #### L 501.6710, L101.9900, L500.4050, L100.0100 #### [facility] [address] [place], [address] Monocytes/100 WBC (Bld) 7.1 % Normal 0-10 [facility] Comment on above: Performed By: #### L 501.6710, L101.9900, L500.4050, L100.0100 #### [facility] [address] [place], [address] Neutrophils/100 WBC (Bld) 73.0 % High 47-70 [facility] Comment on above: Performed By: #### L 501.6710, L101.9900, L500.4050, L100.0100 #### [facility] [address] [place], [address] Nucleated RBC (Bld) [#/Vol] 0 10*3/uL Normal 0-5 [facility] Comment on above: Performed By: #### L 501.6710, L101.9900, L500.4050, L100.0100 #### [facility] [address] [place], [address] Platelet mean volume (Bld) [Entitic vol] 10.2 fL Normal 6.2-12.0 [facility] Comment on above: Performed By: #### L 501.6710, L101.9900, L500.4050, L100.0100 #### [facility] [address] [place], [address] Platelets (Bld) [#/Vol] 353 10*3/uL Normal 150-450 [facility] Comment on above: Performed By: #### L 501.6710, L101.9900, L500.4050, L100.0100 #### [facility] [address] [place], [address] RBC (Bld) [#/Vol] 4.00 10*6/uL Low 4.2-5.4 [facility] Comment on above: Performed By: #### L 501.6710, L101.9900, L500.4050, L100.0100 #### [facility] [address] [place], [address] RDW SD 45.9 fl High 35.1-43.9 [facility] Comment on above: Performed By: #### L 501.6710, L101.9900, L500.4050, L100.0100 #### [facility] [address] [place], [address] WBC (Bld) [#/Vol] 9.3 10*3/uL Normal 4.4-11.0 [facility] Comment on above: Performed By: #### L 501.6710, L101.9900, L500.4050, L100.0100 #### [facility] [address] [place], [address] CRPon 01-03-2025 C-REACTIVE PROT 5.81 mg/L High 0.0-3.0 [facility] Comment on above: Performed By: #### L 501.6710, L101.9900, L500.4050, L100.0100 #### [facility] [address] [place], [address] Carbon dioxide, total [Moles /volume] in Central venous bloodOrdered By: Morelia Higgins on 01-03-2025 CO2 [Moles/Vol] 23.2 mmol/L 21.0-32.0 [facility] Chloride assayOrdered By: Gerson Higgins on 01-03-2025 Chloride [Moles/Vol] 106 mmol/L 98-108 [facility] Comprehensive Metabolic Prof ilon 01-03-2025 Albumin [Mass/Vol] 3.6 g/dL Normal 3.4-4.8 [facility] Comment on above: Performed By: #### L 501.6710, L101.9900, L500.4050, L100.0100 #### [facility] [address] [place], [address] Albumin/Globulin [Mass ratio] 1.4 {ratio} Normal 0.9-2.4 [facility] Comment on above: Performed By: #### L 501.6710, L101.9900, L500.4050, L100.0100 #### [facility] [address] [place], [address] ALK PHOS 79 U/L Normal 35-104 [facility] Comment on above: Performed By: #### L 501.6710, L101.9900, L500.4050, L100.0100 #### [facility] [address] [place], [address] ALT [Catalytic activity/Vol] 21 U/L Normal <=34 [facility] Comment on above: Performed By: #### L 501.6710, L101.9900, L500.4050, L100.0100 #### [facility] [address] [place], [address] AST [Catalytic activity/Vol] 19 U/L Normal <=31 [facility] Comment on above: Performed By: #### L 501.6710, L101.9900, L500.4050, L100.0100 #### [facility] [address] [place], [address] Bilirubin [Mass/Vol] 0.77 mg/dL Normal 0.00-1.30 [facility] Comment on above: Performed By: #### L 501.6710, L101.9900, L500.4050, L100.0100 #### [facility] [address] [place], [address] BUN/CRE 23.9 RATIO High 10-20 [facility] Comment on above: Performed By: #### L 501.6710, L101.9900, L500.4050, L100.0100 #### [facility] [address] [place], [address] Calcium [Mass/Vol] 9.0 mg/dL Normal 7.6-11.0 [facility] Comment on above: Performed By: #### L 501.6710, L101.9900, L500.4050, L100.0100 #### [facility] [address] [place], [address] Chloride [Moles/Vol] 106 mmol/L Normal 98-108 [facility] Comment on above: Performed By: #### L 501.6710, L101.9900, L500.4050, L100.0100 #### [facility] [address] [place], [address] CO2 [Moles/Vol] 23.2 mmol/L Normal 21.0-32.0 [facility] Comment on above: Performed By: #### L 501.6710, L101.9900, L500.4050, L100.0100 #### [facility] [address] [place], [address] Creatinine [Mass/Vol] 0.86 mg/dL Normal 0.70-1.20 [facility] Comment on above: Performed By: #### L 501.6710, L101.9900, L500.4050, L100.0100 #### [facility] [address] [place], [address] GAP 10 Normal 5-15 [facility] Comment on above: Performed By: #### L 501.6710, L101.9900, L500.4050, L100.0100 #### [facility] [address] [place], [address] GFR/1.73 sq M.predicted among non-blacks MDRD (S/P/Bld) [Vol rate/Area] 68 mL/min/{1.73_m2} Normal >60 [facility] Comment on above: Result Comment: mL/m in/1.73m2 CKD-EPI Creatinine Equation (2020) Performed By: #### L 501.6710, L101.9900, L500.4050, L100.0100 #### [facility] [address] [place], [address] Globulin (S) [Mass/Vol] 2.7 g/dL Normal 2.2-4.2 [facility] Comment on above: Performed By: #### L 501.6710, L101.9900, L500.4050, L100.0100 #### [facility] [address] [place], [address] Glucose [Mass/Vol] 92 mg/dL Normal 70-99 [facility] Comment on above: Performed By: #### L 501.6710, L101.9900, L500.4050, L100.0100 #### [facility] [address] [place], [address] Potassium [Moles/Vol] 4.1 mmol/L Normal 3.3-5.1 [facility] Comment on above: Performed By: #### L 501.6710, L101.9900, L500.4050, L100.0100 #### [facility] [address] [place], [address] Sodium [Moles/Vol] 139 mmol/L Normal 133-145 [facility] Comment on above: Performed By: #### L 501.6710, L101.9900, L500.4050, L100.0100 #### [facility] [address] [place], [address] T PROT 6.3 g/dL Normal 5.9-8.4 [facility] Comment on above: Performed By: #### L 501.6710, L101.9900, L500.4050, L100.0100 #### [facility] [address] [place], [address] Urea nitrogen [Mass/Vol] 21 mg/dL High 4-19 [facility] Comment on above: Performed By: #### L 501.6710, L101.9900, L500.4050, L100.0100 #### [facility] [address] [place], [address] Eosinophil percentageOrdered By: Morelia Higgins on 01-03-2025 Eosinophils/100 WBC (Bld) 2.6 % 0-5 [facility] Erythrocyte Sed Rateon 01-03 SED RATE 7 mm/hr Normal 0-30 [facility] Comment on above: Performed By: #### L 501.6710, L101.9900, L500.4050, L100.0100 #### [facility] [address] [place], [address] Erythrocyte distribution wid th ratioOrdered By: Morelia Higgins on 01-03-2025 Erythrocyte distribution width (RBC) [Ratio] 13.4 % 11.6-14.6 [facility] Erythrocyte distribution wid th standard deviationOrdered By: Morelia Higgins on 01-03-2025 Erythrocyte distribution width (RBC) [Ratio] 45.9 fl High 35.1-43.9 [facility] Erythrocyte sedimentation ra teOrdered By: Morelia Higgins on 01-03-2025 ESR (Bld) [Velocity] 7 mm/h 0-30 [facility] Glomerular filtration rate ( GFR) estimation/1.73 sq m using serum, plasma, or whole bOrdered By: Morelia Higgins on 01-03-2025 GFR/1.73 sq M.predicted among non-blacks MDRD (S/P/Bld) [Vol rate/Area] 68 mL/min/{1.73_m2} >60 [facility] Comment on above: mL/min/1.73m2 CKD-EP I Creatinine Equation (2020) Hematocrit Auto (Bld) [Volum e fraction]Ordered By: Morelia Higgins on 01-03-2025 Hematocrit (Bld) [Volume fraction] 37.6 % 37-47 [facility] Hemoglobin measurementOrdere d By: Morelia Higgins on 01-03-2025 Hemoglobin (Bld) [Mass/Vol] 12.1 g/dL 12.0-15.0 [facility] Immature granulocytes/100 WB C Auto (Bld)Ordered By: Morelia Higgins on 01-03-2025 Immature granulocytes/100 WBC (Bld) 1.000 % High 0.0-0.9 [facility] Comment on above: IG% - Immature Granu locytes (promyelocytes, myelocytes and metamyelocytes) > 1% indicates that a LEFT SHIFT is Present. Laboratory - Chemistry and C hemistry - challengeOrdered By: Morelia Higgins on 01-03-2025 AST [Catalytic activity/Vol] 19 U/L <32 [facility] Lipid Profileon 01-03-2025 TRIG Normal [facility] Comment on above: Result Comment: NOT WANTED WILL HAVE WHG PUT BACK IN The drugs N-Acetylcysteine and Metamizole may falsely depress this assay. Performed By: #### L 501.6710, L101.9900, L500.4050, L100.0100 #### [facility] [address] [place], [address] CHOL Normal <=200 [facility] Comment on above: Result Comment: NOT WANTED WILL HAVE WHG PUT BACK IN Performed By: #### L 501.6710, L101.9900, L500.4050, L100.0100 #### [facility] [address] [place], [address] CHOL:HDL Normal [facility] Comment on above: Result Comment: NOT WANTED WILL HAVE WHG PUT BACK IN Performed By: #### L 501.6710, L101.9900, L500.4050, L100.0100 #### [facility] [address] [place], [address] CLDL Normal [facility] Comment on above: Result Comment: NOT WANTED WILL HAVE WHG PUT BACK IN Performed By: #### L 501.6710, L101.9900, L500.4050, L100.0100 #### [facility] [address] [place], [address] HDL Normal [facility] Comment on above: Result Comment: NOT WANTED WILL HAVE WHG PUT BACK IN Performed By: #### L 501.6710, L101.9900, L500.4050, L100.0100 #### [facility] [address] [place], [address] VLDL Normal 5-40 [facility] Comment on above: Result Comment: NOT WANTED WILL HAVE WHG PUT BACK IN Performed By: #### L 501.6710, L101.9900, L500.4050, L100.0100 #### [facility] [address] [place], [address] Liver Profileon 01-03-2025 ALB Normal 3.4-4.8 [facility] Comment on above: Result Comment: NOT WANTED WILL HAVE WHG PUT BACK IN Performed By: #### L 501.6710, L101.9900, L500.4050, L100.0100 #### [facility] [address] [place], [address] ALK PHOS Normal 35-104 [facility] Comment on above: Result Comment: NOT WANTED WILL HAVE WHG PUT BACK IN Performed By: #### L 501.6710, L101.9900, L500.4050, L100.0100 #### [facility] [address] [place], [address] ALT Normal <=34 [facility] Comment on above: Result Comment: NOT WANTED WILL HAVE WHG PUT BACK IN Performed By: #### L 501.6710, L101.9900, L500.4050, L100.0100 #### [facility] [address] [place], [address] AST Normal <=31 [facility] Comment on above: Result Comment: NOT WANTED WILL HAVE WHG PUT BACK IN Performed By: #### L 501.6710, L101.9900, L500.4050, L100.0100 #### [facility] [address] [place], [address] D BILI Normal 0.00-0.30 [facility] Comment on above: Result Comment: NOT WANTED WILL HAVE WHG PUT BACK IN Performed By: #### L 501.6710, L101.9900, L500.4050, L100.0100 #### [facility] [address] [place], [address] T BILI Normal 0.00-1.30 [facility] Comment on above: Result Comment: NOT WANTED WILL HAVE WHG PUT BACK IN Performed By: #### L 501.6710, L101.9900, L500.4050, L100.0100 #### [facility] [address] [place], [address] T PROT Normal 5.9-8.4 [facility] Comment on above: Result Comment: NOT WANTED WILL HAVE WHG PUT BACK IN Performed By: #### L 501.6710, L101.9900, L500.4050, L100.0100 #### [facility] [address] [place], [address] MCV (mean corpuscular volume ) determinationOrdered By: Morelia Higgins on 01-03-2025 MCV (RBC) [Entitic vol] 94.0 fL 81-99 [facility] Mean corpuscular hemoglobin (MCH) determinationOrdered By: Morelia Higgins on 01-03-2025 MCH (RBC) [Entitic mass] 30.3 pg 27.0-32.0 [facility] Mean corpuscular hemoglobin concentration (MCHC) determinationOrdered By: Morelia Higgins on 01-03-2025 MCHC (RBC) [Mass/Vol] 32.2 g/dL 32-36 [facility] Mean platelet volume determi nationOrdered By: Morelia Higgins on 01-03-2025 Platelet mean volume (Bld) [Entitic vol] 10.2 fL 6.2-12.0 [facility] Monocyte percentageOrdered B y: Morelia Higgins on 01-03-2025 Monocytes/100 WBC (Bld) 7.1 % 0-10 [facility] Neutrophil percentageOrdered By: Morelia Higgins on 01-03-2025 Neutrophils/100 WBC (Bld) 73.0 % High 47-70 [facility] Nucleated red blood cell per centageOrdered By: Morelia Higgins on 01-03-2025 Nucleated RBC/100 WBC (Bld) [Ratio] 0 % 0-5 [facility] Platelet countOrdered By: Gerson Higgins on 01-03-2025 Platelets (Bld) [#/Vol] 353 10*3/uL 150-450 [facility] Potassium measurement (mass/ volume)Ordered By: Morelia Higgins on 01-03-2025 Potassium (Unsp spec) [Mass/Vol] 4.1 mmol/L 3.3-5.1 [facility] RBC Auto (Bld) [#/Vol]Ordere d By: Morelia Higgins on 01-03-2025 RBC (Bld) [#/Vol] 4.00 10*6/uL Low 4.2-5.4 [facility] Serum creatinine measurement (mass/volume)Ordered By: Morelia Higgins on 01-03-2025 Creatinine [Mass/Vol] 0.86 mg/dL 0.70-1.20 [facility] Serum globulin measurementOr dered By: Morelia Higgins on 01-03-2025 Globulin (S) [Mass/Vol] 2.7 g/dL 2.2-4.2 [facility] Serum glucose measurement (m ass/volume)Ordered By: Morelia Higgins on 01-03-2025 Glucose [Mass/Vol] 92 mg/dL 70-99 [facility] Serum or plasma C reactive p rotein measurement (mass/volume)Ordered By: Morelia Higgins on 01-03-2025 CRP [Mass/Vol] 5.81 mg/L High 0.0-3.0 [facility] Serum or plasma alanine kwok otransferase (ALT) measurementOrdered By: Morelia Higgins on 01-03-2025 ALT [Catalytic activity/Vol] 21 U/L <35 [facility] Serum or plasma albumin josué urement (mass/volume)Ordered By: Morelia Higgins on 01-03-2025 Albumin [Mass/Vol] 3.6 g/dL 3.4-4.8 [facility] Serum or plasma albumin/glob ulin mass ratioOrdered By: Morelia Higgins on 01-03-2025 Albumin/Globulin [Mass ratio] 1.4 {ratio} 0.9-2.4 [facility] Serum or plasma alkaline mike sphatase measurementOrdered By: Morelia Higgins on 01-03-2025 ALP [Catalytic activity/Vol] 79 U/L 35-104 [facility] Serum or plasma calcium josué urement (mass/volume)Ordered By: Morelia Higgins on 01-03-2025 Calcium [Mass/Vol] 9.0 mg/dL 7.6-11.0 [facility] Serum or plasma urea nitroge n measurement (mass/volume)Ordered By: Morelia Higgins on 01-03-2025 Urea nitrogen [Mass/Vol] 21 mg/dL High 4-19 [facility] Sodium levelOrdered By: Glenda Higgins on 01-03-2025 Sodium [Moles/Vol] 139 mmol/L 133-145 [facility] Total proteinOrdered By: [facility] susana Higgins on 01-03-2025 Protein [Mass/Vol] 6.3 g/dL 5.9-8.4 [facility] White blood cell (WBC) count Ordered By: [facility] Gisela on 01-03-2025 WBC (Bld) [#/Vol] 9.3 10*3/uL 4.4-11.0 [facility] Absolute lymphocyte countOrd ered By: [facility] Gisela on 10-12-2024 Lymphocytes Auto (Unsp spec) [#/Vol] 1.38 10*3/uL 0.83-4.51 [facility] Absolute neutrophil countOrd ered By: [facility] Gisela on 10-12-2024 Neutrophils (Bld) [#/Vol] 6.2 10*3/uL 2.0-7.7 [facility] Anion gap in Serum or Plasma Ordered By: [facility] Gisela on 10-12-2024 Anion gap [Moles/Vol] 10 mmol/L 5-15 [facility] Automated blood erythrocyte countOrdered By: [facility] Gisela on 10-12-2024 RBC (Bld) [#/Vol] 3.79 10*6/uL Low 4.2-5.4 [facility] Comment on above: Performed By: #### L 101.9900, L100.0100, L501.6710, L500.4050 #### [facility] [address] [facility] [facility] [place], [place], [id number] Automated blood hematocrit ( percentage)Ordered By: Moreliasusana Higgins on 10-12-2024 Hematocrit (Bld) [Volume fraction] 35.2 % Low 37-47 [facility] Comment on above: Performed By: #### L 101.9900, L100.0100, L501.6710, L500.4050 #### [facility] [address] [place], [place], [id number] Automated lymphocyte count a s percentage of total leukocytesOrdered By: Moreliasusana Higgins on 10-12-2024 Lymphocytes/100 WBC Auto (Unsp spec) 16.1 % Low 19-41 [facility] BUN/creatinine ratioOrdered By: Morelia Hawthornegermán on 10-12-2024 Urea nitrogen/Creatinine [Mass ratio] 21.2 mg/mg High 10-20 [facility] Basophil percentageOrdered B y: Morelia Higgins on 10-12-2024 Basophils/100 WBC (Bld) 1.2 % High 0-1 [facility] Comment on above: Performed By: #### L 101.9900, L100.0100, L501.6710, L500.4050 #### [facility] [address] [place], [address] Bilirubin, totalOrdered By: Morelia Gisela on 10-12-2024 Bilirubin [Mass/Vol] 0.88 mg/dL 0.00-1.30 [facility] CBC W/Diff, Automatedon 05 Absolute Lymph 1.38 X10 3/uL Normal 0.83-4.51 [facility] Comment on above: Performed By: #### L 101.9900, L100.0100, L501.6710, L500.4050 #### [facility] [address] [place], [address] Absolute Neut 6.2 X10 3/uL Normal 2.0-7.7 [facility] Comment on above: Performed By: #### L 101.9900, L100.0100, L501.6710, L500.4050 #### [facility] [address] [place], [address] IG% 0.800 Normal 0.0-0.9 [facility] Comment on above: Result Comment: IG% - Immature Granulocytes (promyelocytes, myelocytes and metamyelocytes) > 1% indicates that a LEFT SHIFT is Present. Performed By: #### L 101.9900, L100.0100, L501.6710, L500.4050 #### [facility] [address] [place], [address] Lymphocytes/100 WBC (Bld) 16.1 % Low 19-41 [facility] Comment on above: Performed By: #### L 101.9900, L100.0100, L501.6710, L500.4050 #### [facility] [address] [place], [address] Nucleated RBC (Bld) [#/Vol] 0 10*3/uL Normal 0-5 [facility] Comment on above: Performed By: #### L 101.9900, L100.0100, L501.6710, L500.4050 #### [facility] [address] [place], [address] RDW SD 47.0 fl High 35.1-43.9 [facility] Comment on above: Performed By: #### L 101.9900, L100.0100, L501.6710, L500.4050 #### [facility] [address] [place], [address] CRPon 10-12-2024 C-REACTIVE PROT 3.36 mg/L High 0.0-3.0 [facility] Comment on above: Performed By: #### L 501.6710, L101.9900, L500.4050, L100.0100 #### [facility] [address] [place], [address] Carbon dioxide, total [Moles /volume] in Central venous bloodOrdered By: Morelia Higgins on 10-12-2024 CO2 [Moles/Vol] 24.4 mmol/L 21.0-32.0 [facility] Chloride assayOrdered By: Gerson Higgins on 10-12-2024 Chloride [Moles/Vol] 106 mmol/L 98-108 [facility] Comprehensive Metabolic Prof ilon 10-12-2024 Albumin [Mass/Vol] 3.8 g/dL Normal 3.4-4.8 [facility] Comment on above: Performed By: #### L 101.9900, L100.0100, L501.6710, L500.4050 #### [facility] [address] [place], [address] Albumin/Globulin [Mass ratio] 1.5 {ratio} Normal 0.9-2.4 [facility] Comment on above: Performed By: #### L 101.9900, L100.0100, L501.6710, L500.4050 #### [facility] [address] [place], [address] ALK PHOS 83 U/L Normal 35-104 [facility] Comment on above: Performed By: #### L 101.9900, L100.0100, L501.6710, L500.4050 #### [facility] [address] [place], [address] ALT [Catalytic activity/Vol] 17 U/L Normal <=34 [facility] Comment on above: Performed By: #### L 101.9900, L100.0100, L501.6710, L500.4050 #### [facility] [address] [place], [address] AST [Catalytic activity/Vol] 18 U/L Normal <=31 [facility] Comment on above: Performed By: #### L 101.9900, L100.0100, L501.6710, L500.4050 #### [facility] [address] [place], [address] Bilirubin [Mass/Vol] 0.88 mg/dL Normal 0.00-1.30 [facility] Comment on above: Performed By: #### L 101.9900, L100.0100, L501.6710, L500.4050 #### [facility] [address] [place], [address] BUN/CRE 21.2 RATIO High 10-20 [facility] Comment on above: Performed By: #### L 101.9900, L100.0100, L501.6710, L500.4050 #### [facility] [address] [place], [address] Calcium [Mass/Vol] 9.0 mg/dL Normal 7.6-11.0 [facility] Comment on above: Performed By: #### L 101.9900, L100.0100, L501.6710, L500.4050 #### [facility] [address] [place], [address] Chloride [Moles/Vol] 106 mmol/L Normal 98-108 [facility] Comment on above: Performed By: #### L 101.9900, L100.0100, L501.6710, L500.4050 #### [facility] [address] [place], [address] CO2 [Moles/Vol] 24.4 mmol/L Normal 21.0-32.0 [facility] Comment on above: Performed By: #### L 101.9900, L100.0100, L501.6710, L500.4050 #### [facility] [address] [place], [address] Creatinine [Mass/Vol] 0.90 mg/dL Normal 0.70-1.20 [facility] Comment on above: Performed By: #### L 101.9900, L100.0100, L501.6710, L500.4050 #### [facility] [address] [place], [address] GAP 10 Normal 5-15 [facility] Comment on above: Performed By: #### L 101.9900, L100.0100, L501.6710, L500.4050 #### [facility] [address] [place], [address] GFR/1.73 sq M.predicted among non-blacks MDRD (S/P/Bld) [Vol rate/Area] 64 mL/min/{1.73_m2} Normal >60 [facility] Comment on above: Result Comment: mL/m in/1.73m2 CKD-EPI Creatinine Equation (2020) Performed By: #### L 101.9900, L100.0100, L501.6710, L500.4050 #### [facility] [address] [place], [address] Globulin (S) [Mass/Vol] 2.6 g/dL Normal 2.2-4.2 [facility] Comment on above: Performed By: #### L 101.9900, L100.0100, L501.6710, L500.4050 #### [facility] [address] [place], [address] Glucose [Mass/Vol] 99 mg/dL Normal 70-99 [facility] Comment on above: Performed By: #### L 101.9900, L100.0100, L501.6710, L500.4050 #### [facility] [address] [place], [address] Potassium [Moles/Vol] 4.0 mmol/L Normal 3.3-5.1 [facility] Comment on above: Performed By: #### L 101.9900, L100.0100, L501.6710, L500.4050 #### [facility] [address] [place], [address] Sodium [Moles/Vol] 140 mmol/L Normal 133-145 [facility] Comment on above: Performed By: #### L 101.9900, L100.0100, L501.6710, L500.4050 #### [facility] [address] [place], [address] T PROT 6.3 g/dL Normal 5.9-8.4 [facility] Comment on above: Performed By: #### L 101.9900, L100.0100, L501.6710, L500.4050 #### [facility] [address] [place], [address] Urea nitrogen [Mass/Vol] 19 mg/dL Normal 4-19 [facility] Comment on above: Performed By: #### L 101.9900, L100.0100, L501.6710, L500.4050 #### [facility] [address] [place], [address] Eosinophil percentageOrdered By: Morelia Higgins on 10-12-2024 Eosinophils/100 WBC (Bld) 2.2 % Normal 0-5 [facility] Comment on above: Performed By: #### L 101.9900, L100.0100, L501.6710, L500.4050 #### [facility] [address] [place], [address] Erythrocyte Sed Rateon 10-12 SED RATE 4 mm/hr Normal 0-30 [facility] Comment on above: Performed By: #### L 101.9900, L100.0100, L501.6710, L500.4050 #### [facility] [address] [place], [address] Erythrocyte distribution wid th ratioOrdered By: Morelia Higgins on 10-12-2024 Erythrocyte distribution width (RBC) [Ratio] 14.0 % Normal 11.6-14.6 [facility] Comment on above: Performed By: #### L 101.9900, L100.0100, L501.6710, L500.4050 #### [facility] [address] [place], [address] Erythrocyte distribution wid th standard deviationOrdered By: Morelia Higgins on 10-12-2024 Erythrocyte distribution width (RBC) [Ratio] 47.0 fl High 35.1-43.9 [facility] Erythrocyte sedimentation ra teOrdered By: Morelia Higgins on 10-12-2024 ESR (Bld) [Velocity] 4 mm/h 0-30 [facility] Glomerular filtration rate ( GFR) estimation/1.73 sq m using serum, plasma, or whole bOrdered By: Morelia Higgins on 10-12-2024 GFR/1.73 sq M.predicted among non-blacks MDRD (S/P/Bld) [Vol rate/Area] 64 mL/min/{1.73_m2} >60 [facility] Comment on above: mL/min/1.73m2 CKD-EP I Creatinine Equation (2020) Hemoglobin measurementOrdere d By: Morelia Higgins on 10-12-2024 Hemoglobin (Bld) [Mass/Vol] 11.7 g/dL Low 12.0-15.0 [facility] Comment on above: Performed By: #### L 101.9900, L100.0100, L501.6710, L500.4050 #### [facility] [address] [facility] [place], [place], [id number] Immature granulocytes/100 WB C Auto (Bld)Ordered By: Morelia Higgins on 10-12-2024 Immature granulocytes/100 WBC (Bld) 0.800 % 0.0-0.9 [facility] Comment on above: IG% - Immature Granu locytes (promyelocytes, myelocytes and metamyelocytes) > 1% indicates that a LEFT SHIFT is Present. Laboratory - Chemistry and C hemistry - challengeOrdered By: Morelia Higgins on 10-12-2024 AST [Catalytic activity/Vol] 18 U/L <32 [facility] MCV (mean corpuscular volume ) determinationOrdered By: Morelia Higgins on 10-12-2024 MCV (RBC) [Entitic vol] 92.9 fL Normal 81-99 [facility] Comment on above: Performed By: #### L 101.9900, L100.0100, L501.6710, L500.4050 #### [facility] [address] [place], [place], [id number] Mean corpuscular hemoglobin (MCH) determinationOrdered By: Morelia Higgins on 10-12-2024 MCH (RBC) [Entitic mass] 30.9 pg Normal 27.0-32.0 [facility] Comment on above: Performed By: #### L 101.9900, L100.0100, L501.6710, L500.4050 #### [facility] [address] [place], [address] Mean corpuscular hemoglobin concentration (MCHC) determinationOrdered By: Morelia Higgins on 10-12-2024 MCHC (RBC) [Mass/Vol] 33.2 g/dL Normal 32-36 [facility] Comment on above: Performed By: #### L 101.9900, L100.0100, L501.6710, L500.4050 #### [facility] [address] [place], [place], [id number] Mean platelet volume determi nationOrdered By: Morelia Higgins on 10-12-2024 Platelet mean volume (Bld) [Entitic vol] 10.2 fL Normal 6.2-12.0 [facility] Comment on above: Performed By: #### L 101.9900, L100.0100, L501.6710, L500.4050 #### [facility] [address] [place], [address] Monocyte percentageOrdered B y: Morelia Higgins on 10-12-2024 Monocytes/100 WBC (Bld) 7.0 % Normal 0-10 [facility] Comment on above: Performed By: #### L 101.9900, L100.0100, L501.6710, L500.4050 #### [facility] [address] [place], [address] Neutrophil percentageOrdered By: Morelia Higgins on 10-12-2024 Neutrophils/100 WBC (Bld) 72.7 % High 47-70 [facility] Comment on above: Performed By: #### L 101.9900, L100.0100, L501.6710, L500.4050 #### [facility] [address] [place], [address] Nucleated red blood cell per centageOrdered By: Morelia Higgins on 10-12-2024 Nucleated RBC/100 WBC (Bld) [Ratio] 0 % 0-5 [facility] Platelet countOrdered By: Gerson Higgins on 10-12-2024 Platelets (Bld) [#/Vol] 338 10*3/uL Normal 150-450 [facility] Comment on above: Performed By: #### L 101.9900, L100.0100, L501.6710, L500.4050 #### [facility] [address] [place], [place], [address] Potassium measurement (mass/ volume)Ordered By: Morelia Higgins on 10-12-2024 Potassium (Unsp spec) [Mass/Vol] 4.0 mmol/L 3.3-5.1 [facility] Serum creatinine measurement (mass/volume)Ordered By: Morelia Higgins on 10-12-2024 Creatinine [Mass/Vol] 0.90 mg/dL 0.70-1.20 [facility] Serum globulin measurementOr dered By: Morelia Higgins on 10-12-2024 Globulin (S) [Mass/Vol] 2.6 g/dL 2.2-4.2 [facility] Serum glucose measurement (m ass/volume)Ordered By: Morelia Higgins on 10-12-2024 Glucose [Mass/Vol] 99 mg/dL 70-99 [facility] Serum or plasma C reactive p rotein measurement (mass/volume)Ordered By: Morelia Higgins on 10-12-2024 CRP [Mass/Vol] 3.36 mg/L High 0.0-3.0 [facility] Serum or plasma alanine kwok otransferase (ALT) measurementOrdered By: Morelia Higgins on 10-12-2024 ALT [Catalytic activity/Vol] 17 U/L <35 [facility] Serum or plasma albumin josué urement (mass/volume)Ordered By: Morelia Higgins on 10-12-2024 Albumin [Mass/Vol] 3.8 g/dL 3.4-4.8 [facility] Serum or plasma albumin/glob ulin mass ratioOrdered By: Morelia Higgins on 10-12-2024 Albumin/Globulin [Mass ratio] 1.5 {ratio} 0.9-2.4 [facility] Serum or plasma alkaline mike sphatase measurementOrdered By: Morelia Higgins on 10-12-2024 ALP [Catalytic activity/Vol] 83 U/L 35-104 [facility] Serum or plasma calcium josué urement (mass/volume)Ordered By: Morelia Higgins on 10-12-2024 Calcium [Mass/Vol] 9.0 mg/dL 7.6-11.0 [facility] Serum or plasma urea nitroge n measurement (mass/volume)Ordered By: Morelia Higgins on 10-12-2024 Urea nitrogen [Mass/Vol] 19 mg/dL 4-19 [facility] Sodium levelOrdered By: Glenda Higgins on 10-12-2024 Sodium [Moles/Vol] 140 mmol/L 133-145 [facility] Total proteinOrdered By: Niels Higgins on 10-12-2024 Protein [Mass/Vol] 6.3 g/dL 5.9-8.4 [facility] White blood cell (WBC) count Ordered By: Morelia Higgins on 10-12-2024 WBC (Bld) [#/Vol] 8.6 10*3/uL Normal 4.4-11.0 [facility] Comment on above: Performed By: #### L 101.9900, L100.0100, L501.6710, L500.4050 #### [facility] [address] [place], [place], [id number] Urgent Care Visit Reporton 0 10-08-2024 Urgent Care Visit Report [facility] [address], [address] [place], [place] [address] OFFICE VISIT Date of Service: 10/08/24 MR#: [id number] Acct: [id number] Name: PHANI DOMÍNGUEZ #: [id number] : 1940 Provider: GERSON Wright Age/Sex: 83/F Location: [facility] Status: Signed Intake Vital [...] Doxycycline she took 2 of the pills. [facility] Medical History Tendinitis of extensor tendon of [...] days ago while hiking with family in [place] and daughter removed the tick herself. Trace tenderness locally without erythema migrans and is requesting a prophylactic antibiotic. No complaints of fever, chills, headache, myalgias, joint pain, neck pain. No razg-cqz-hqovrrm products taken to assist. Otherwise asymptomatic without complaints. ROS Const Constitutional: Positive for other (As above) Exam Const General: cooperative, healthy appearing and no acute distress Nutritional Appearance: average body habitus (more content not included)... Normal [facility] Hemoglobin A1con 09-07-2024 HbA1c (Bld) [Mass fraction] 6.0 % Normal <=5.6 [facility] Comment on above: Performed By: #### L 501.9520, L506.1001, L501.9985 #### [facility] [address] [facility] [id number] Hemoglobin A1c percentageOrd ered By: Cristal Astudillo on 09-07-2024 HbA1c (Bld) [Mass fraction] 6.0 % >5.7 [facility] L506.1001on 09-07-2024 Vitamin D 25-OH 46.9 ng/mL Normal 30-100 [facility] Comment on above: Result Comment: Ysabel min D Status Deficiency: <20 ng/mL (50nmol/L) Insufficiency: 20-30 ng/mL (50-75 nmol/L) Sufficiency: 30-100 ng/mL (75-250 nmol/L) Toxicity: >100 ng/mL (>250 nmol/L) Performed By: #### L 501.9520, L506.1001, L501.9985 #### [facility] [address] [place], [place], [address] TSH DL <= 0.005 mIU/L QnOrde red By: Cristal Astudillo on 09-07-2024 Thyroid Stimulating Hormone (TSH) 2.160 uIU/mL 0.300-4.200 [facility] TSH Qn 2.160 uIU/mL 0.300-4.200 [facility] Thyroid Stim Hormone (TSH)on 09-07-2024 TSH 2.160 uIU/mL Normal 0.300-4.200 [facility] Comment on above: Performed By: #### L 501.9520, L506.1001, L501.9985 #### [facility] [address] [place], [address] Vitamin D, 25-hydroxyOrdered By: Cristal Astudillo on 09-07-2024 Vitamin D 25-Hydroxy 46.9 ng/mL 30-100 [facility] Comment on above: Vitamin D StatusDefi ciency: <20 ng/mL (50nmol/L)Insufficiency: 20-30 ng/mL (50-75 nmol/L)Sufficiency: 30-100 ng/mL (75-250 nmol/L)Toxicity: >100 ng/mL (>250 nmol/L) Cardiology Visit Reporton Cardiology Visit Report [facility] [address] [place] [address] OFFICE VISIT Date of Service: 09/06/24 MR#: [id number] Acct: [id number] Name: PHANI DOMÍNGUEZ Rep #: [id number] : 1940 Provider: Dr. Marcial Moe MD Age/Sex: 83/F Location: [facility] Status: Signed HPI HPI History of Present [...] Monitor Intake Visit Reasons: 1 Y FU Criminal Justice Lawyer Required: No Accompanied by: Self Is patient [...] not us (more content not included)... Normal [facility] MR/BMS.Annamarie 08-23-2024 MR/BMS.IMB [facility] [address] [place] [address] OFFICE VISIT Date of Service: 08/23/24 MR#: [id number] Acct: [id number] Name: PHANI DOMÍNGUEZ Rep #: [id number] : 1940 Provider: Dr. Cristal milian MD Age/Sex: 83/F Location: [facility] Status: Signed Intake Vital Signs 08/06/24 07:59 [...] Hand Edema Chief Complaint: Lt hand edema Criminal Justice Lawyer Required: No Accompanied by: Self Is patient [...] you fallen in the past year?: No [facility] Medical History (Updated 08/23/24 @ 08:38 by [...] several times. Yesterday had a sense of lack of strength due to the discomfort that was present. As of this morning actually doing a little better in the left wrist and hand. The right is doing well. Otherwise no acute injury. She does wear wrist splints at night bec (more content not included)... Normal [facility] Breast imaging reportOrdered By: Ced Wallace on 08-16-2024 Study report [facility] Imaging Services [address] [place], [place] [address] SCRN MAMM (CAD)W/IZABELLA BILAT MR#: [id number] Acct: [id number] Name: PHANI DOMÍNGUEZ Rep #: : 1940 F 83 From: Titus Wallace MD PCP: Dr. Cristal Astudillo MD Status: REG CLI Study:SCRN MAMM (CAD)W/IZABELLA BILAT Date of Exa m: 08/16/24 Exam# [id number] Ordering Dr: Cristal Astudillo MD PROCEDURE: SCRN [...] of the results by letter. Reading Location: [facility] CC: Dr. Cristal Astudillo MD ~ Network Engineering Advisor: Signed [facility] SCRN MAMM (CAD)W/IZABELLA BILATo n 08-16-2024 SCRN MAMM (CAD)W/IZABELLA BILAT [facility] Imaging Services [address] [place], [place] [id number] SCRN MAMM (CAD)W/IZABELLA BILAT MR#: [id number] Acct: [id number] Name: PHANI DOMÍNGUEZ Rep #: [id number] : 1940 F 83 From: Ced jefferson MD PCP: Dr. Cristal Astudillo MD Status: [facility] CL Study: SCRN MAMM (CAD)W/IZABELLA BILAT Date of Exam: 12/05 Exam# [id number] Ordering Dr: Cristal Astudillo MD PROCEDURE: SCRN [...] of the results by letter. Reading Location: [facility] CC: Dr. Cristal Astudillo MD Network Engineering Advisor: Signed Normal [facility] MR/BMS.[facility] 08-06-2024 MR/BMS.[facility] [address] [place] [address] OFFICE VISIT Date of Service: 08/06/24 MR#: [id number] Acct: [id number] Name: PHANI DOMÍNGUEZ Rep #: [id number] : 1940 Provider: Dr. 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 She does have prednisone available that she could use periodically for f (more content not included)... Normal [facility] Absolute lymphocyte countOrd ered By: Morelia Higgins on 08-02-2024 Lymphocytes Auto (Unsp spec) [#/Vol] 1.22 10*3/uL 0.83-4.51 [facility] Absolute neutrophil countOrd ered By: Morelia Higgins on 08-02-2024 Neutrophils (Bld) [#/Vol] 5.8 10*3/uL 2.0-7.7 [facility] Albumin to globulin ratioOrd ered By: Morelia Higgins on 08-02-2024 Albumin/Globulin [Mass ratio] 0.9 {ratio} 0.9-2.4 [facility] Automated lymphocyte count a s percentage of total leukocytesOrdered By: Morelia Higgins on 08-02-2024 Lymphocytes/100 WBC Auto (Unsp spec) 15.8 % Low 19-41 [facility] Basophil percentageOrdered B y: Morelia Higgins on 08-02-2024 Basophils/100 WBC (Bld) 0.9 % 0-1 [facility] Bilirubin, totalOrdered By: Morelia Higgins on 08-02-2024 Bilirubin [Mass/Vol] 1.10 mg/dL High 0.20-1.00 [facility] Comment on above: For patients on eltr ombopag therapy, use of Dimension [place] TBIL is not recommended. Blood urea nitrogen (BUN)/cr eatinine ratioOrdered By: Morelia Higgins on 08-02-2024 Urea nitrogen/Creatinine [Mass ratio] 23.7 mg/mg High 10-20 [facility] C-reactive protein measureme nt by high sensitivity methodOrdered By: Morelia Higgins on 08-02-2024 C-Reactive Protein Extended Range 3.22 mg/L High 0.0-3.0 [facility] Comment on above: C-Reactive Protein ( CRP) provides useful information for thediagnosis, therapy and monitoring of inflammatory processesand associated diseases. For the evaluation of Relative Riskfor Cardiovascular Disease, a High Sensitivity CRP (HSCRP)should be ordered. C-reactive protein measurement by high sensitivity method 3.22 mg/L High 0.0-3.0 [facility] Comment on above: C-Reactive Protein ( CRP) provides useful information for thediagnosis, therapy and monitoring of inflammatory processesand associated diseases. For the evaluation of Relative Riskfor Cardiovascular Disease, a High Sensitivity CRP (HSCRP)should be ordered. CBC W/Diff, Automatedon 02-2 0-2024 Absolute Lymph 1.22 X10 3/uL Normal 0.83-4.51 [facility] Comment on above: Performed By: #### L 501.6710, L101.9900, L500.4050, L100.0100 #### [facility] [address] [place], [address] Absolute Neut 5.8 X10 3/uL Normal 2.0-7.7 [facility] Comment on above: Performed By: #### L 501.6710, L101.9900, L500.4050, L100.0100 #### [facility] [address] [place], [address] Basophils/100 WBC (Bld) 0.9 % Normal 0-1 [facility] Comment on above: Performed By: #### L 501.6710, L101.9900, L500.4050, L100.0100 #### [facility] [address] [place], [address] Eosinophils/100 WBC (Bld) 1.3 % Normal 0-5 [facility] Comment on above: Performed By: #### L 501.6710, L101.9900, L500.4050, L100.0100 #### [facility] [address] [place], [address] Erythrocyte distribution width (RBC) [Ratio] 13.2 % Normal 11.6-14.6 [facility] Comment on above: Performed By: #### L 501.6710, L101.9900, L500.4050, L100.0100 #### [facility] [address] [place], [address] Hematocrit (Bld) [Volume fraction] 38.2 % Normal 37-47 [facility] Comment on above: Performed By: #### L 501.6710, L101.9900, L500.4050, L100.0100 #### [facility] [address] [place], [address] Hemoglobin (Bld) [Mass/Vol] 12.5 g/dL Normal 12.0-15.0 [facility] Comment on above: Performed By: #### L 501.6710, L101.9900, L500.4050, L100.0100 #### [facility] [address] [place], [address] IG% 0.500 Normal 0.0-0.9 [facility] Comment on above: Result Comment: IG% - Immature Granulocytes (promyelocytes, myelocytes and metamyelocytes) > 1% indicates that a LEFT SHIFT is Present. Performed By: #### L 501.6710, L101.9900, L500.4050, L100.0100 #### [facility] [address] [place], [address] Lymphocytes/100 WBC (Bld) 15.8 % Low 19-41 [facility] Comment on above: Performed By: #### L 501.6710, L101.9900, L500.4050, L100.0100 #### [facility] [address] [place], [address] MCH (RBC) [Entitic mass] 29.5 pg Normal 27.0-32.0 [facility] Comment on above: Performed By: #### L 501.6710, L101.9900, L500.4050, L100.0100 #### [facility] [address] [place], [address] MCHC (RBC) [Mass/Vol] 32.7 g/dL Normal 32-36 [facility] Comment on above: Performed By: #### L 501.6710, L101.9900, L500.4050, L100.0100 #### [facility] [address] [place], [address] MCV (RBC) [Entitic vol] 90.1 fL Normal 81-99 [facility] Comment on above: Performed By: #### L 501.6710, L101.9900, L500.4050, L100.0100 #### [facility] [address] [place], [address] Monocytes/100 WBC (Bld) 7.0 % Normal 0-10 [facility] Comment on above: Performed By: #### L 501.6710, L101.9900, L500.4050, L100.0100 #### [facility] [address] [place], [address] Neutrophils/100 WBC (Bld) 74.5 % High 47-70 [facility] Comment on above: Performed By: #### L 501.6710, L101.9900, L500.4050, L100.0100 #### [facility] [address] [place], [address] Nucleated RBC (Bld) [#/Vol] 0 10*3/uL Normal 0-5 [facility] Comment on above: Performed By: #### L 501.6710, L101.9900, L500.4050, L100.0100 #### [facility] [address] [place], [address] Platelet mean volume (Bld) [Entitic vol] 10.5 fL Normal 6.2-12.0 [facility] Comment on above: Performed By: #### L 501.6710, L101.9900, L500.4050, L100.0100 #### [facility] [address] [place], [address] Platelets (Bld) [#/Vol] 348 10*3/uL Normal 150-450 [facility] Comment on above: Performed By: #### L 501.6710, L101.9900, L500.4050, L100.0100 #### [facility] [address] [place], [address] RBC (Bld) [#/Vol] 4.24 10*6/uL Normal 4.2-5.4 [facility] Comment on above: Performed By: #### L 501.6710, L101.9900, L500.4050, L100.0100 #### [facility] [address] [place], [address] RDW SD 42.7 fl Normal 35.1-43.9 [facility] Comment on above: Performed By: #### L 501.6710, L101.9900, L500.4050, L100.0100 #### [facility] [address] [place], [address] WBC (Bld) [#/Vol] 7.7 10*3/uL Normal 4.4-11.0 [facility] Comment on above: Performed By: #### L 501.6710, L101.9900, L500.4050, L100.0100 #### [facility] [address] [place], [address] CRPon 08-02-2024 C-REACTIVE PROT 3.22 mg/L High 0.0-3.0 [facility] Comment on above: Result Comment: C-Re active Protein (CRP) provides useful information for the diagnosis, therapy and monitoring of inflammatory processes and associated diseases. For the evaluation of Relative Risk for Cardiovascular Disease, a High Sensitivity CRP (HSCRP) should be ordered. Performed By: #### L 501.6710, L101.9900, L500.4050, L100.0100 #### [facility] [address] [place], [address] Carbon dioxide measurementOr dered By: Morelia Higgins on 08-02-2024 CO2 [Moles/Vol] 28.0 mmol/L 21.0-32.0 [facility] Chloride measurementOrdered By: Morelia Higgins on 08-02-2024 Chloride [Moles/Vol] 105 mmol/L 98-107 [facility] Comprehensive Metabolic Prof ilon 08-02-2024 Albumin [Mass/Vol] 3.3 g/dL Normal 3.2-5.0 [facility] Comment on above: Performed By: #### L 501.6710, L101.9900, L500.4050, L100.0100 #### [facility] [address] [place], [address] Albumin/Globulin [Mass ratio] 0.9 {ratio} Normal 0.9-2.4 [facility] Comment on above: Performed By: #### L 501.6710, L101.9900, L500.4050, L100.0100 #### [facility] [address] [place], [address] ALK P 79 U/L Normal 45-117 [facility] Comment on above: Performed By: #### L 501.6710, L101.9900, L500.4050, L100.0100 #### [facility] [address] [place], [address] ALT [Catalytic activity/Vol] 24 U/L Normal 13-56 [facility] Comment on above: Performed By: #### L 501.6710, L101.9900, L500.4050, L100.0100 #### [facility] [address] [place], [address] AST [Catalytic activity/Vol] 19 U/L Normal 15-37 [facility] Comment on above: Performed By: #### L 501.6710, L101.9900, L500.4050, L100.0100 #### [facility] [address] [place], [address] Bilirubin [Mass/Vol] 1.10 mg/dL High 0.20-1.00 [facility] Comment on above: Result Comment: For patients on eltrombopag therapy, use of Dimension [place] TBIL is not recommended. Performed By: #### L 501.6710, L101.9900, L500.4050, L100.0100 #### [facility] [address] [place], [address] BUN/CRE 23.7 RATIO High 10-20 [facility] Comment on above: Performed By: #### L 501.6710, L101.9900, L500.4050, L100.0100 #### [facility] [address] [place], [address] CA,Total 9.2 mg/dL Normal 8.5-10.1 [facility] Comment on above: Performed By: #### L 501.6710, L101.9900, L500.4050, L100.0100 #### [facility] [address] [place], [address] Chloride [Moles/Vol] 105 mmol/L Normal 98-107 [facility] Comment on above: Performed By: #### L 501.6710, L101.9900, L500.4050, L100.0100 #### [facility] [address] [place], [address] CO2 [Moles/Vol] 28.0 mmol/L Normal 21.0-32.0 [facility] Comment on above: Performed By: #### L 501.6710, L101.9900, L500.4050, L100.0100 #### [facility] [address] [place], [address] Creatinine [Mass/Vol] 0.93 mg/dL Normal 0.55-1.02 [facility] Comment on above: Result Comment: The validity of the calculated GFR GFRAA in patients over 70 years has not been determined. Clinical correlation is essential. Performed By: #### L 501.6710, L101.9900, L500.4050, L100.0100 #### [facility] [address] [place], [address] EST GFR - AA 75 mL/min Normal >60 [facility] Comment on above: Result Comment: Afri can Australian GFR Calc Performed By: #### L 501.6710, L101.9900, L500.4050, L100.0100 #### [facility] [address] [place], [address] GAP 5 Normal 5-15 [facility] Comment on above: Performed By: #### L 501.6710, L101.9900, L500.4050, L100.0100 #### [facility] [address] [place], [address] GFR/1.73 sq M.predicted among non-blacks MDRD (S/P/Bld) [Vol rate/Area] 62 mL/min/{1.73_m2} Normal >60 [facility] Comment on above: Result Comment: Non- GFR Calc Performed By: #### L 501.6710, L101.9900, L500.4050, L100.0100 #### [facility] [address] [place], [address] Globulin (S) [Mass/Vol] 3.5 g/dL Normal 2.2-4.2 [facility] Comment on above: Performed By: #### L 501.6710, L101.9900, L500.4050, L100.0100 #### [facility] [address] [place], [address] Glucose [Mass/Vol] 114 mg/dL High 74-106 [facility] Comment on above: Result Comment: Fast ing Glucose result from 100 to 125 mg/dL suggests IMPAIRED HOMEOSTASIS per A.D.A. criteria. Performed By: #### L 501.6710, L101.9900, L500.4050, L100.0100 #### [facility] [address] [place], [address] Potassium [Moles/Vol] 4.2 mmol/L Normal 3.5-5.1 [facility] Comment on above: Performed By: #### L 501.6710, L101.9900, L500.4050, L100.0100 #### [facility] [address] [place], [address] Sodium [Moles/Vol] 138 mmol/L Normal 136-145 [facility] Comment on above: Performed By: #### L 501.6710, L101.9900, L500.4050, L100.0100 #### [facility] [address] [place], [address] T PROT 6.8 g/dL Normal 6.4-8.2 [facility] Comment on above: Performed By: #### L 501.6710, L101.9900, L500.4050, L100.0100 #### [facility] [address] [place], [address] Urea nitrogen [Mass/Vol] 22 mg/dL High 7-18 [facility] Comment on above: Performed By: #### L 501.6710, L101.9900, L500.4050, L100.0100 #### [facility] [address] [place], [address] Eosinophil percentageOrdered By: Morelia Higgins on 08-02-2024 Eosinophils/100 WBC (Bld) 1.3 % 0-5 [facility] Erythrocyte Sed Rateon 08-02 SED RATE 3 mm/hr Normal 0-30 [facility] Comment on above: Performed By: #### L 501.6710, L101.9900, L500.4050, L100.0100 #### [facility] [place], [address] Erythrocyte distribution wid th ratioOrdered By: Morelia Higgins on 08-02-2024 Erythrocyte distribution width (RBC) [Ratio] 13.2 % 11.6-14.6 [facility] Erythrocyte distribution wid th standard deviationOrdered By: Morelia Higgins on 08-02-2024 Erythrocyte distribution width (RBC) [Entitic vol] 42.7 fL 35.1-43.9 [facility] Erythrocyte distribution width (RBC) [Ratio] 42.7 fl 35.1-43.9 [facility] Erythrocyte sedimentation ra teOrdered By: Morelia Higgins on 08-02-2024 ESR (Bld) [Velocity] 3 mm/h 0-30 [facility] Estimated glomerular filtrat ion rate (GFR) AmericanOrdered By: Morelia Higgins on 08-02-2024 Estimated GFR (MDRD) Amer 75 mL/min >60 [facility] Comment on above: GFR Calc Glomerular filtration rate ( GFR) estimationOrdered By: Morelia Higgins on 08-02-2024 Estimated GFR (MDRD) Non-Af Amer 62 mL/min >60 [facility] Comment on above: Non- GFR Calc GFR/1.73 sq M.predicted among non-blacks MDRD (S/P/Bld) [Vol rate/Area] 62 mL/min/{1.73_m2} >60 [facility] Comment on above: Non- GFR Calc Glucose measurementOrdered B y: Morelia Higgins on 08-02-2024 Glucose [Mass/Vol] 114 mg/dL High 74-106 [facility] Comment on above: Fasting Glucose resu lt from 100 to 125 mg/dL suggests IMPAIRED HOMEOSTASIS per A.D.A. criteria. Hematocrit Auto (Bld) [Volum e fraction]Ordered By: Morelia Higgins on 08-02-2024 Hematocrit (Bld) [Volume fraction] 38.2 % 37-47 [facility] Hemoglobin measurementOrdere d By: Morelia Higgins on 08-02-2024 Hemoglobin (Bld) [Mass/Vol] 12.5 g/dL 12.0-15.0 [facility] Immature granulocytes/100 WB C Auto (Bld)Ordered By: Morelia Higgins on 08-02-2024 Immature granulocytes/100 WBC (Bld) 0.500 % 0.0-0.9 [facility] Comment on above: IG% - Immature Granu locytes (promyelocytes, myelocytes and metamyelocytes) > 1% indicates that a LEFT SHIFT is Present. Laboratory - Chemistry and C hemistry - challengeOrdered By: Morelia Higgins on 08-02-2024 AST [Catalytic activity/Vol] 19 U/L 15-37 [facility] Lymphocytes Auto (Unsp spec) [#/Vol]Ordered By: Morelia Higgins on 08-02-2024 Lymphocytes (Bld) [#/Vol] 1.22 10*3/uL 0.83-4.51 [facility] Lymphocytes/100 WBC Auto (Un sp spec)Ordered By: Morelia Higgins on 08-02-2024 Lymphocytes/100 WBC (Bld) 15.8 % Low 19-41 [facility] MCV (mean corpuscular volume ) determinationOrdered By: Morelia Higgins on 08-02-2024 MCV (RBC) [Entitic vol] 90.1 fL 81-99 [facility] Mean corpuscular hemoglobin (MCH) determinationOrdered By: Morelia Higgins on 08-02-2024 MCH (RBC) [Entitic mass] 29.5 pg 27.0-32.0 [facility] Mean corpuscular hemoglobin concentration (MCHC) determinationOrdered By: Morelia Higgins on 08-02-2024 MCHC (RBC) [Mass/Vol] 32.7 g/dL 32-36 [facility] Mean platelet volume determi nationOrdered By: Morelia Higgins on 08-02-2024 Platelet mean volume (Bld) [Entitic vol] 10.5 fL 6.2-12.0 [facility] Monocyte percentageOrdered B y: Morelia Higgins on 08-02-2024 Monocytes/100 WBC (Bld) 7.0 % 0-10 [facility] Neutrophil percentageOrdered By: Morelia Higgins on 02-20-2025 Neutrophils/100 WBC (Bld) 74.5 % High 47-70 [facility] Nucleated red blood cell per centageOrdered By: Morelia Higgins on 08-02-2024 Nucleated RBC/100 WBC (Bld) [Ratio] 0 % 0-5 [facility] Platelet countOrdered By: Gerson Higgins on 08-02-2024 Platelets (Bld) [#/Vol] 348 10*3/uL 150-450 [facility] Potassium measurementOrdered By: Morelia Higgins on 08-02-2024 Potassium [Moles/Vol] 4.2 mmol/L 3.5-5.1 [facility] RBC Auto (Bld) [#/Vol]Ordere d By: Morelia Higgins on 08-02-2024 RBC (Bld) [#/Vol] 4.24 10*6/uL 4.2-5.4 [facility] Serum anion gap measurementO rdered By: Morelia Higgins on 08-02-2024 Anion gap [Moles/Vol] 5 mmol/L 5-15 [facility] Serum globulin measurementOr dered By: Morelia Higgins on 08-02-2024 Globulin (S) [Mass/Vol] 3.5 g/dL 2.2-4.2 [facility] Serum or plasma alanine kwok otransferase (ALT) measurementOrdered By: Morelia Higgins on 08-02-2024 ALT [Catalytic activity/Vol] 24 U/L 13-56 [facility] Serum or plasma albumin josué urement (mass/volume)Ordered By: Morelia Higgins on 08-02-2024 Albumin [Mass/Vol] 3.3 g/dL 3.2-5.0 [facility] Serum or plasma alkaline mike sphatase measurementOrdered By: Morelia Higgins on 08-02-2024 ALP [Catalytic activity/Vol] 79 U/L 45-117 [facility] Serum or plasma calcium josué urement (mass/volume)Ordered By: Morelia Higgins on 08-02-2024 Calcium [Mass/Vol] 9.2 mg/dL 8.5-10.1 [facility] Serum or plasma creatinine m easurement (mass/volume)Ordered By: Morelia Higgins on 08-02-2024 Creatinine [Mass/Vol] 0.93 mg/dL 0.55-1.02 [facility] Comment on above: The validity of the calculated GFR & GFRAA in patients over 70 years has not been determined. Clinical correlation is essential. Serum or plasma urea nitroge n measurement (mass/volume)Ordered By: Morelia Higgins on 08-02-2024 Urea nitrogen [Mass/Vol] 22 mg/dL High 7-18 [facility] Sodium levelOrdered By: Glenda Higgins on 08-02-2024 Sodium [Moles/Vol] 138 mmol/L 136-145 [facility] Total proteinOrdered By: Niels Higgins on 08-02-2024 Protein [Mass/Vol] 6.8 g/dL 6.4-8.2 [facility] White blood cell (WBC) count Ordered By: Morelia Higgins on 08-02-2024 WBC (Bld) [#/Vol] 7.7 10*3/uL 4.4-11.0 [facility] Bilirubin directOrdered By: Sathish Brewster on 06-22-2024 Bilirubin.direct [Mass/Vol] 0.14 mg/dL 0.00-0.30 [facility] Bilirubin, totalOrdered By: Sathish Brewster on 06-22-2024 Bilirubin [Mass/Vol] 0.90 mg/dL 0.20-1.00 [facility] Comment on above: For patients on eltr ombopag therapy, use of Dimension [place] TBIL is not recommended. High density lipoprotein (HD L) measurementOrdered By: Sathish Brewster on 06-22-2024 Cholesterol in HDL [Mass/Vol] 53 mg/dL >40 [facility] Comment on above: The drugs N-Acetylcy steine and Metamizole may falsely depress this assay. Reference Range HDL <40 mg/dL Low HDL Cholesterol HDL >or= 60 mg/dL High HDL Cholesterol Laboratory - Chemistry and C hemistry - challengeOrdered By: Sathish Brewster on 06-22-2024 AST [Catalytic activity/Vol] 15 U/L 15-37 [facility] Lipid Profileon 06-22-2024 Cholesterol [Mass/Vol] 229 mg/dL High [address] [facility] Comment on above: Result Comment: <200 mg/dL Desirable 200-240 mg/dL Borderline >240 mg/dL High Risk Performed By: #### L 501.6710, L101.9900, L500.4050, L100.0100 #### [facility] [address] [place], [address] Cholesterol in HDL [Mass/Vol] 53 mg/dL Normal [facility] Comment on above: Result Comment: The drugs N-Acetylcysteine and Metamizole may falsely depress this assay. Reference Range HDL <40 mg/dL Low HDL Cholesterol HDL >or= 60 mg/dL High HDL Cholesterol Performed By: #### L 501.6710, L101.9900, L500.4050, L100.0100 #### [facility] [address] [place], [address] Cholesterol in LDL [Mass/Vol] 151 mg/dL High 0-130 [facility] Comment on above: Performed By: #### L [id number], L101.9900, L500.4050, L100.0100 #### [facility] [address] [place], [address] Cholesterol in VLDL [Mass/Vol] 25 mg/dL Normal 5-40 [facility] Comment on above: Performed By: #### L [id number], L101.9900, L500.4050, L100.0100 #### [facility] [address] [place], [address] Triglyceride [Mass/Vol] 127 mg/dL Normal [facility] Comment on above: Result Comment: The drugs N-Acetylcysteine and Metamizole may falsely depress this assay. Serum Triglycerides Reference Interval Normal <150 mg/dL Borderline high 150 - 199 mg/dL High 200 - 499 mg/dL Very High > or = 500 mg/dL Performed By: #### L 501.6710, L101.9900, L500.4050, L100.0100 #### [facility] [address] [place], [address] Liver Profileon 06-22-2024 Albumin [Mass/Vol] 3.1 g/dL Low 3.2-5.0 [facility] Comment on above: Performed By: #### L 501.6710, L101.9900, L500.4050, L100.0100 #### [facility] [address] [place], [address] ALK P 86 U/L Normal 45-117 [facility] Comment on above: Performed By: #### L 501.6710, L101.9900, L500.4050, L100.0100 #### [facility] [address] [place], [address] ALT [Catalytic activity/Vol] 22 U/L Normal 13-56 [facility] Comment on above: Performed By: #### L 501.6710, L101.9900, L500.4050, L100.0100 #### [facility] [address] [place], [address] AST [Catalytic activity/Vol] 15 U/L Normal 15-37 [facility] Comment on above: Performed By: #### L 501.6710, L101.9900, L500.4050, L100.0100 #### [facility] [address] [place], [address] Bilirubin [Mass/Vol] 0.90 mg/dL Normal 0.20-1.00 [facility] Comment on above: Result Comment: For patients on eltrombopag therapy, use of Dimension [place] TBIL is not recommended. Performed By: #### L 501.6710, L101.9900, L500.4050, L100.0100 #### [facility] [address] [place], [address] Bilirubin.direct [Mass/Vol] 0.14 mg/dL Normal 0.00-0.30 [facility] Comment on above: Performed By: #### L 501.6710, L101.9900, L500.4050, L100.0100 #### [facility] [address] [place], [address] Globulin (S) [Mass/Vol] 3.4 g/dL Normal 2.2-4.2 [facility] Comment on above: Performed By: #### L 501.6710, L101.9900, L500.4050, L100.0100 #### [facility] [address] [place], [address] T PROT 6.5 g/dL Normal 6.4-8.2 [facility] Comment on above: Performed By: #### L [id number], L101.9900, L500.4050, L100.0100 #### [facility] [address] [place], [address] Low density lipoprotein (LDL ) cholesterol measurementOrdered By: Sathish Brewster on 06-22-2024 Cholesterol in LDL [Mass/Vol] 151 mg/dL High 0-130 [facility] Serum globulin measurementOr dered By: Sathish Brewster on 06-22-2024 Globulin (S) [Mass/Vol] 3.4 g/dL 2.2-4.2 [facility] Serum or plasma alanine kwok otransferase (ALT) measurementOrdered By: Sathish Brewster on 06-22-2024 ALT [Catalytic activity/Vol] 22 U/L 13-56 [facility] Serum or plasma albumin josué urement (mass/volume)Ordered By: Sathish Brewster on 06-22-2024 Albumin [Mass/Vol] 3.1 g/dL Low 3.2-5.0 [facility] Serum or plasma alkaline mike sphatase measurementOrdered By: Sathish Brewster on 06-22-2024 ALP [Catalytic activity/Vol] 86 U/L 45-117 [facility] Serum or plasma cholesterol measurement (mass/volume)Ordered By: Sathish Brewster on 06-22-2024 Cholesterol [Mass/Vol] 229 mg/dL High <200 [facility] Comment on above: <200 mg/dL Desirable 200-240 mg/dL Borderline >240 mg/dL High Risk Total proteinOrdered By: Blair Brewster on 06-22-2024 Protein [Mass/Vol] 6.5 g/dL 6.4-8.2 [facility] Triglycerides measurementOrd ered By: Sathish Brewster on 06-22-2024 Triglyceride [Mass/Vol] 127 mg/dL <199 [facility] Comment on above: The drugs N-Acetylcy steine and Metamizole may falsely depress this assay.Serum Triglycerides Reference Interval Normal <150 mg/dL Borderline high 150 - 199 mg/dL High 200 - 499 mg/dL Very High > or = 500 mg/dL Very low density lipoprotein (VLDL) cholesterol measurementOrdered By: Sathish Brewstre on 06-22-2024 Very low density lipoprotein (VLDL) cholesterol measurement 25 mg/dL 5-40 [facility] VLDL Cholesterol 25 mg/dL 5-40 [facility] Absolute neutrophil countOrd ered By: Morelia Higgins on 05-08-2024 Neutrophils (Bld) [#/Vol] 5.2 10*3/uL 2.0-7.7 [facility] Albumin to globulin ratioOrd ered By: Morelia Higgins on 05-08-2024 Albumin/Globulin [Mass ratio] 0.9 {ratio} 0.9-2.4 [facility] Basophil percentageOrdered B y: Morelia Higgins on 05-08-2024 Basophils/100 WBC (Bld) 0.8 % 0-1 [facility] Bilirubin, totalOrdered By: Morelia Higgins on 05-08-2024 Bilirubin [Mass/Vol] 0.70 mg/dL 0.20-1.00 [facility] Comment on above: For patients on eltr ombopag therapy, use of Dimension [place] TBIL is not recommended. Blood urea nitrogen (BUN)/cr eatinine ratioOrdered By: Morelia Higgins on 05-08-2024 Urea nitrogen/Creatinine [Mass ratio] 20.5 mg/mg High 10-20 [facility] C-reactive protein measureme nt by high sensitivity methodOrdered By: Morelia Higgins on 05-08-2024 C-Reactive Protein Extended Range 8.25 mg/L High 0.0-3.0 [facility] Comment on above: C-Reactive Protein ( CRP) provides useful information for thediagnosis, therapy and monitoring of inflammatory processesand associated diseases. For the evaluation of Relative Riskfor Cardiovascular Disease, a High Sensitivity CRP (HSCRP)should be ordered. CBC W/Diff, Automatedon 11-2 Absolute Lymph 1.03 X10 3/uL Normal 0.83-4.51 [facility] Comment on above: Performed By: #### L 501.6710, L101.9900, L500.4050, L100.0100 #### [facility] [address] [place], [address] Absolute Neut 5.2 X10 3/uL Normal 2.0-7.7 [facility] Comment on above: Performed By: #### L 501.6710, L101.9900, L500.4050, L100.0100 #### [facility] [address] [place], [address] Basophils/100 WBC (Bld) 0.8 % Normal 0-1 [facility] Comment on above: Performed By: #### L 501.6710, L101.9900, L500.4050, L100.0100 #### [facility] [address] [place], [address] Eosinophils/100 WBC (Bld) 2.5 % Normal 0-5 [facility] Comment on above: Performed By: #### L 501.6710, L101.9900, L500.4050, L100.0100 #### [facility] [address] [place], [address] Erythrocyte distribution width (RBC) [Ratio] 12.3 % Normal 11.6-14.6 [facility] Comment on above: Performed By: #### L 501.6710, L101.9900, L500.4050, L100.0100 #### [facility] [address] [place], [address] Hematocrit (Bld) [Volume fraction] 39.9 % Normal 37-47 [facility] Comment on above: Performed By: #### L 501.6710, L101.9900, L500.4050, L100.0100 #### [facility] [address] [place], [address] Hemoglobin (Bld) [Mass/Vol] 12.6 g/dL Normal 12.0-15.0 [facility] Comment on above: Performed By: #### L 501.6710, L101.9900, L500.4050, L100.0100 #### [facility] [address] [place], [address] IG% 0.400 Normal 0.0-0.9 [facility] Comment on above: Result Comment: IG% - Immature Granulocytes (promyelocytes, myelocytes and metamyelocytes) > 1% indicates that a LEFT SHIFT is Present. Performed By: #### L 501.6710, L101.9900, L500.4050, L100.0100 #### [facility] [address] [place], [address] Lymphocytes/100 WBC (Bld) 14.5 % Low 19-41 [facility] Comment on above: Performed By: #### L 501.6710, L101.9900, L500.4050, L100.0100 #### [facility] [address] [place], [address] MCH (RBC) [Entitic mass] 28.4 pg Normal 27.0-32.0 [facility] Comment on above: Performed By: #### L 501.6710, L101.9900, L500.4050, L100.0100 #### [facility] [address] [place], [address] MCHC (RBC) [Mass/Vol] 31.6 g/dL Low 32-36 [facility] Comment on above: Performed By: #### L 501.6710, L101.9900, L500.4050, L100.0100 #### [facility] [address] [place], [address] MCV (RBC) [Entitic vol] 89.9 fL Normal 81-99 [facility] Comment on above: Performed By: #### L 501.6710, L101.9900, L500.4050, L100.0100 #### [facility] [address] [place], [address] Monocytes/100 WBC (Bld) 9.0 % Normal 0-10 [facility] Comment on above: Performed By: #### L 501.6710, L101.9900, L500.4050, L100.0100 #### [facility] [address] [place], [address] Neutrophils/100 WBC (Bld) 72.8 % High 47-70 [facility] Comment on above: Performed By: #### L 501.6710, L101.9900, L500.4050, L100.0100 #### [facility] [address] [place], [address] Nucleated RBC (Bld) [#/Vol] 0 10*3/uL Normal 0-5 [facility] Comment on above: Performed By: #### L 501.6710, L101.9900, L500.4050, L100.0100 #### [facility] [address] [place], [address] Platelet mean volume (Bld) [Entitic vol] 10.4 fL Normal 6.2-12.0 [facility] Comment on above: Performed By: #### L 501.6710, L101.9900, L500.4050, L100.0100 #### [facility] [address] [place], [address] Platelets (Bld) [#/Vol] 340 10*3/uL Normal 150-450 [facility] Comment on above: Performed By: #### L 501.6710, L101.9900, L500.4050, L100.0100 #### [facility] [address] [place], [address] RBC (Bld) [#/Vol] 4.44 10*6/uL Normal 4.2-5.4 [facility] Comment on above: Performed By: #### L 501.6710, L101.9900, L500.4050, L100.0100 #### [facility] [address] [place], [address] RDW SD 40.5 fl Normal 35.1-43.9 [facility] Comment on above: Performed By: #### L 501.6710, L101.9900, L500.4050, L100.0100 #### [facility] [address] [place], [address] WBC (Bld) [#/Vol] 7.1 10*3/uL Normal 4.4-11.0 [facility] Comment on above: Performed By: #### L 501.6710, L101.9900, L500.4050, L100.0100 #### [facility] [address] [place], [address] CRPon 05-08-2024 C-REACTIVE PROT 8.25 mg/L High 0.0-3.0 [facility] Comment on above: Result Comment: C-Re active Protein (CRP) provides useful information for the diagnosis, therapy and monitoring of inflammatory processes and associated diseases. For the evaluation of Relative Risk for Cardiovascular Disease, a High Sensitivity CRP (HSCRP) should be ordered. Performed By: #### L 501.6710, L101.9900, L500.4050, L100.0100 #### [facility] [address] [place], [address] Carbon dioxide measurementOr dered By: Morelia Higgins on 05-08-2024 CO2 [Moles/Vol] 29.0 mmol/L 21.0-32.0 [facility] Chloride measurementOrdered By: Morelia Higgins on 05-08-2024 Chloride [Moles/Vol] 106 mmol/L 98-107 [facility] Comprehensive Metabolic Prof ilon 05-08-2024 Albumin [Mass/Vol] 3.1 g/dL Low 3.2-5.0 [facility] Comment on above: Performed By: #### L 501.6710, L101.9900, L500.4050, L100.0100 #### [facility] [address] [place], [address] Albumin/Globulin [Mass ratio] 0.9 {ratio} Normal 0.9-2.4 [facility] Comment on above: Performed By: #### L 501.6710, L101.9900, L500.4050, L100.0100 #### [facility] [address] [place], [address] ALK P 91 U/L Normal 45-117 [facility] Comment on above: Performed By: #### L 501.6710, L101.9900, L500.4050, L100.0100 #### [facility] [address] [place], [address] ALT [Catalytic activity/Vol] 22 U/L Normal 13-56 [facility] Comment on above: Performed By: #### L 501.6710, L101.9900, L500.4050, L100.0100 #### [facility] [address] [place], [address] AST [Catalytic activity/Vol] 12 U/L Low 15-37 [facility] Comment on above: Performed By: #### L 501.6710, L101.9900, L500.4050, L100.0100 #### [facility] [address] [place], [address] Bilirubin [Mass/Vol] 0.70 mg/dL Normal 0.20-1.00 [facility] Comment on above: Result Comment: For patients on eltrombopag therapy, use of Dimension [place] TBIL is not recommended. Performed By: #### L 501.6710, L101.9900, L500.4050, L100.0100 #### [facility] [address] [place], [address] BUN/CRE 20.5 RATIO High 10-20 [facility] Comment on above: Performed By: #### L 501.6710, L101.9900, L500.4050, L100.0100 #### [facility] [address] [place], [address] CA,Total 9.1 mg/dL Normal 8.5-10.1 [facility] Comment on above: Performed By: #### L 501.6710, L101.9900, L500.4050, L100.0100 #### [facility] [address] [place], [address] Chloride [Moles/Vol] 106 mmol/L Normal 98-107 [facility] Comment on above: Performed By: #### L 501.6710, L101.9900, L500.4050, L100.0100 #### [facility] [address] [place], [address] CO2 [Moles/Vol] 29.0 mmol/L Normal 21.0-32.0 [facility] Comment on above: Performed By: #### L 501.6710, L101.9900, L500.4050, L100.0100 #### [facility] [address] [place], [address] Creatinine [Mass/Vol] 0.83 mg/dL Normal 0.55-1.02 [facility] Comment on above: Result Comment: The validity of the calculated GFR GFRAA in patients over 70 years has not been determined. Clinical correlation is essential. Performed By: #### L 501.6710, L101.9900, L500.4050, L100.0100 #### [facility] [address] [place], [address] EST GFR - AA 85 mL/min Normal >60 [facility] Comment on above: Result Comment: Afri can [place] GFR Calc Performed By: #### L 501.6710, L101.9900, L500.4050, L100.0100 #### [facility] [address] [place], [address] GAP 4 Low 5-15 [facility] Comment on above: Performed By: #### L 501.6710, L101.9900, L500.4050, L100.0100 #### [facility] [address] [place], [address] GFR/1.73 sq M.predicted among non-blacks MDRD (S/P/Bld) [Vol rate/Area] 70 mL/min/{1.73_m2} Normal >60 [facility] Comment on above: Result Comment: Non- GFR Calc Performed By: #### L 501.6710, L101.9900, L500.4050, L100.0100 #### [facility] [address] [place], [address] Globulin (S) [Mass/Vol] 3.5 g/dL Normal 2.2-4.2 [facility] Comment on above: Performed By: #### L 501.6710, L101.9900, L500.4050, L100.0100 #### [facility] [address] [place], [address] Glucose [Mass/Vol] 116 mg/dL High 74-106 [facility] [facility] Comment on above: Result Comment: Fast ing Glucose result from 100 to 125 mg/dL suggests IMPAIRED HOMEOSTASIS per A.D.A. criteria. Performed By: #### L 501.6710, L101.9900, L500.4050, L100.0100 #### [facility] [address] [place], [address] Potassium [Moles/Vol] 4.4 mmol/L Normal 3.5-5.1 [facility] Comment on above: Performed By: #### L 501.6710, L101.9900, L500.4050, L100.0100 #### [facility] [address] [place], [address] Sodium [Moles/Vol] 138 mmol/L Normal 136-145 [facility] Comment on above: Performed By: #### L 501.6710, L101.9900, L500.4050, L100.0100 #### [facility] [address] [place], [address] T PROT 6.6 g/dL Normal 6.4-8.2 [facility] Comment on above: Performed By: #### L 501.6710, L101.9900, L500.4050, L100.0100 #### [facility] [address] [place], [address] Urea nitrogen [Mass/Vol] 17 mg/dL Normal 7-18 [facility] Comment on above: Performed By: #### L 501.6710, L101.9900, L500.4050, L100.0100 #### [facility] [address] [place], [address] Eosinophil percentageOrdered By: Morelia Higgins on 05-08-2024 Eosinophils/100 WBC (Bld) 2.5 % 0-5 [facility] Erythrocyte Sed Rateon 05-08 SED RATE 6 mm/hr Normal 0-30 [facility] Comment on above: Performed By: #### L 501.6710, L101.9900, L500.4050, L100.0100 #### [facility] [address] [place], [address] Erythrocyte distribution wid th ratioOrdered By: Morelia Higgins on 05-08-2024 Erythrocyte distribution width (RBC) [Ratio] 12.3 % 11.6-14.6 [facility] Erythrocyte distribution wid th standard deviationOrdered By: Moreliasusana Higgins on 05-08-2024 Erythrocyte distribution width (RBC) [Entitic vol] 40.5 fL 35.1-43.9 [facility] Erythrocyte sedimentation ra teOrdered By: Morelia Higgins on 05-08-2024 ESR (Bld) [Velocity] 6 mm/h 0-30 [facility] Estimated glomerular filtrat ion rate (GFR) AmericanOrdered By: Morelia Higgins on 05-08-2024 Estimated GFR (MDRD) Amer 85 mL/min >60 [facility] Comment on above: GFR Calc Glomerular filtration rate ( GFR) estimationOrdered By: Morelia Higgins on 05-08-2024 Estimated GFR (MDRD) Non-Af Amer 70 mL/min >60 [facility] Comment on above: Non- GFR Calc Glucose measurementOrdered B y: Morelia Higgins on 05-08-2024 Glucose [Mass/Vol] 116 mg/dL High 74-106 [facility] Comment on above: Fasting Glucose resu lt from 100 to 125 mg/dL suggests IMPAIRED HOMEOSTASIS per A.D.A. criteria. Hematocrit Auto (Bld) [Volum e fraction]Ordered By: Morelia Higgins on 05-08-2024 Hematocrit (Bld) [Volume fraction] 39.9 % 37-47 [facility] Hemoglobin measurementOrdere d By: Morelia Higgins on 05-08-2024 Hemoglobin (Bld) [Mass/Vol] 12.6 g/dL 12.0-15.0 [facility] Immature granulocytes/100 WB C Auto (Bld)Ordered By: Morelia Higgins on 05-08-2024 Immature granulocytes/100 WBC (Bld) 0.400 % 0.0-0.9 [facility] Comment on above: IG% - Immature Granu locytes (promyelocytes, myelocytes and metamyelocytes) > 1% indicates that a LEFT SHIFT is Present. Laboratory - Chemistry and C hemistry - challengeOrdered By: Morelia Higgins on 05-08-2024 AST [Catalytic activity/Vol] 12 U/L Low 15-37 [facility] Lymphocytes Auto (Unsp spec) [#/Vol]Ordered By: Morelia Higgins on 05-08-2024 Lymphocytes (Bld) [#/Vol] 1.03 10*3/uL 0.83-4.51 [facility] Lymphocytes/100 WBC Auto (Un sp spec)Ordered By: Morelia Higgins on 05-08-2024 Lymphocytes/100 WBC (Bld) 14.5 % Low 19-41 [facility] MCV (mean corpuscular volume ) determinationOrdered By: Morelia Higgins on 05-08-2024 MCV (RBC) [Entitic vol] 89.9 fL 81-99 [facility] Mean corpuscular hemoglobin (MCH) determinationOrdered By: Morelia Higgins on 05-08-2024 MCH (RBC) [Entitic mass] 28.4 pg 27.0-32.0 [facility] Mean corpuscular hemoglobin concentration (MCHC) determinationOrdered By: Morelia Higgins on 05-08-2024 MCHC (RBC) [Mass/Vol] 31.6 g/dL Low 32-36 [facility] Mean platelet volume determi nationOrdered By: Morelia Higgins on 05-08-2024 Platelet mean volume (Bld) [Entitic vol] 10.4 fL 6.2-12.0 [facility] Monocyte percentageOrdered B y: Morelia Higgins on 05-08-2024 Monocytes/100 WBC (Bld) 9.0 % 0-10 [facility] Neutrophil percentageOrdered By: Morelia Higgins on 05-08-2024 Neutrophils/100 WBC (Bld) 72.8 % High 47-70 [facility] Nucleated red blood cell per centageOrdered By: Morelia Higgins on 05-08-2024 Nucleated RBC/100 WBC (Bld) [Ratio] 0 % 0-5 [facility] Platelet countOrdered By: Gerson Higgins on 05-08-2024 Platelets (Bld) [#/Vol] 340 10*3/uL 150-450 [facility] Potassium measurementOrdered By: Morelia Higgins on 05-08-2024 Potassium [Moles/Vol] 4.4 mmol/L 3.5-5.1 [facility] RBC Auto (Bld) [#/Vol]Ordere d By: Morelia Higgins on 05-08-2024 RBC (Bld) [#/Vol] 4.44 10*6/uL 4.2-5.4 [facility] Serum anion gap measurementO rdered By: Morelia Higgins on 05-08-2024 Anion gap [Moles/Vol] 4 mmol/L Low 5-15 [facility] Serum globulin measurementOr dered By: Morelia Higgins on 05-08-2024 Globulin (S) [Mass/Vol] 3.5 g/dL 2.2-4.2 [facility] Serum or plasma alanine kwok otransferase (ALT) measurementOrdered By: Morelia Higgins on 05-08-2024 ALT [Catalytic activity/Vol] 22 U/L 13-56 [facility] Serum or plasma albumin josué urement (mass/volume)Ordered By: Morelia Higgins on 05-08-2024 Albumin [Mass/Vol] 3.1 g/dL Low 3.2-5.0 [facility] Serum or plasma alkaline mike sphatase measurementOrdered By: Morelia Higgins on 05-08-2024 ALP [Catalytic activity/Vol] 91 U/L 45-117 [facility] Serum or plasma calcium josué urement (mass/volume)Ordered By: Morelia Higgins on 05-08-2024 Calcium [Mass/Vol] 9.1 mg/dL 8.5-10.1 [facility] Serum or plasma creatinine m easurement (mass/volume)Ordered By: Morelia Higgins on 05-08-2024 Creatinine [Mass/Vol] 0.83 mg/dL 0.55-1.02 [facility] Comment on above: The validity of the calculated GFR & GFRAA in patients over 70 years has not been determined. Clinical correlation is essential. Serum or plasma urea nitroge n measurement (mass/volume)Ordered By: Morelia Higgins on 05-08-2024 Urea nitrogen [Mass/Vol] 17 mg/dL 7-18 [facility] Sodium levelOrdered By: Glenda Higgins on 05-08-2024 Sodium [Moles/Vol] 138 mmol/L 136-145 [facility] Total proteinOrdered By: Niels Higgins on 05-08-2024 Protein [Mass/Vol] 6.6 g/dL 6.4-8.2 [facility] White blood cell (WBC) count Ordered By: Morelia Higgins on 05-08-2024 WBC (Bld) [#/Vol] 7.1 10*3/uL 4.4-11.0 [facility] Stress Reporton 03-28-2024 Stress Report [facility] [address] [place] [id number] MR#: [id number] Acct: [id number] Name: PHANI DOMÍNGUEZ Rep #: [id number] : 1940 83 From: Marcial Moe MD Primary Care: Dr. Cristal Astudillo MD Status: REG CLI Referring Dr: Sathish Brewster NP PACE ANALYST-C Sex: F C Stress Test Report Exercise [...] 03/28/24 1234 Date Marcial Moe MD CC: PACE ANALYST-C Sathish Brewster; Dr. Cristal Astudillo MD Date Dictated: 03/28/241231 Date Transcribed: 03/28/241231 Network Engineering Advisor: [place] Signed Normal [facility] 12 Lead EKG performed by [facility] on 03-07-2024 12 Lead EKG performed by [address] [address] 12 Lead EKG performed by [facility] 03/07/24 0731 MR#: [id number] Acct: [id number] Name: PHANI DOMÍNGUEZ Rep #: [id number] : 1940 83 From: Sathish Brewster NP PACE ANALYST-C Attending Dr: EDDIE Morales Status: DEP AMB Ordering Dr: Sathish Brewster NP PACE ANALYST-C Date: 03/07/24 Location: [facility] Sex: F C Admitted: [facility]/12 Lead EKG performed by [facility] ECG Report Interpretation ---Sinus Rhythm WITHIN NORMAL LIMITSElectronically signed on 03/09/2024 at 07:43 by Marcial Moe Software Version [id number] 03/09/24 0744 Date Sathish MORGAN CC: Dr. Cristal Astudillo MD Date Dictated: 03/07/24730 Date Transcribed: 03/07/24730 Network Engineering Advisor: ROLAND Signed Normal [facility] Cardiology Visit Reporton Cardiology Visit Report [facility] [address] [place] [address] OFFICE VISIT Date of Service: 03/07/24 MR#: [id number] Acct: [id number] Name: PHANI DOMÍNGUEZ Rep #: [id number] : 1940 Provider: EDDIE agrawal Age/Sex: 83/F Location: [facility] Status: Signed HPI HPI History of Present Illness Details: Ms. Domínguez [...] closely at home. She states occasional chest twinge. She denies arm, jaw, or neck discomfort. [...] vision ENT (more content not included)... Normal [facility] Absolute lymphocyte countOrd ered By: Cristal Astudillo on 08-19-2023 Lymphocytes Auto (Unsp spec) [#/Vol] 1.37 10*3/uL 0.83-4.51 [facility] Automated lymphocyte count a s percentage of total leukocytesOrdered By: Cristal Astudillo on 08-19-2023 Lymphocytes/100 WBC Auto (Unsp spec) 14.3 % 19-41 [facility] Basophil percentageOrdered B y: Cristal Astudillo on 08-19-2023 Basophils/100 WBC (Bld) 0.9 % 0-1 [facility] Bilirubin [Mass/Vol] 1.10 mg/dL 0.20-1.00 [facility] Comment on above: For patients on eltr ombopag therapy, use of Dimension [place] TBIL is not recommended. Chloride [Moles/Vol] 106 mmol/L 98-107 [facility] Eosinophils/100 WBC (Bld) 1.2 % 0-5 [facility] Glucose [Mass/Vol] 103 mg/dL 74-106 [facility] Comment on above: Fasting Glucose resu lt from 100 to 125 mg/dL suggests IMPAIRED HOMEOSTASIS per A.D.A. criteria. Hemoglobin (Bld) [Mass/Vol] 13.7 g/dL 12.0-15.0 [facility] Monocytes/100 WBC (Bld) 6.3 % 0-10 [facility] Neutrophils (Bld) [#/Vol] 7.4 10*3/uL 2.0-7.7 [facility] Neutrophils/100 WBC (Bld) 76.9 % 47-70 [facility] Potassium [Moles/Vol] 4.2 mmol/L 3.5-5.1 [facility] Protein [Mass/Vol] 7.3 g/dL 6.4-8.2 [facility] Sodium [Moles/Vol] 140 mmol/L 136-145 [facility] WBC (Bld) [#/Vol] 9.6 10*3/uL 4.4-11.0 [facility] Determination of erythrocyte mean corpuscular volume (MCV)Ordered By: Cristal Astudillo on 08-19-2023 MCV (RBC) [Entitic vol] 89.6 fL 81-99 [facility] Erythrocyte distribution wid th ratioOrdered By: Cristal Astudillo on 08-19-2023 Erythrocyte distribution width (RBC) [Ratio] 12.3 % 11.6-14.6 [facility] Erythrocyte distribution wid th standard deviationOrdered By: Cristal Astudillo on 08-19-2023 Erythrocyte distribution width (RBC) [Entitic vol] 40.8 fL 35.1-43.9 [facility] Hematocrit Auto (Bld) [Volum e fraction]Ordered By: Cristal Astudillo on 08-19-2023 Hematocrit (Bld) [Volume fraction] 42.9 % 37-47 [facility] Immature granulocytes/100 WB C Auto (Bld)Ordered By: Cristal Astudillo on 08-19-2023 Immature granulocytes/100 WBC (Bld) 0.400 % 0.0-0.9 [facility] Comment on above: IG% - Immature Granu locytes (promyelocytes, myelocytes and metamyelocytes) > 1% indicates that a LEFT SHIFT is Present. Laboratory - Chemistry and C hemistry - challengeOrdered By: Cristal Astudillo on 08-19-2023 Albumin/Globulin [Mass ratio] 0.8 {ratio} 0.9-2.4 [facility] ALP [Catalytic activity/Vol] 98 U/L 45-117 [facility] ALT [Catalytic activity/Vol] 22 U/L 13-56 [facility] CO2 [Moles/Vol] 27.0 mmol/L 21.0-32.0 [facility] Globulin (S) [Mass/Vol] 4.0 g/dL 2.2-4.2 [facility] Urea nitrogen/Creatinine [Mass ratio] 20.7 mg/mg 10-20 [facility] - Hematology and Cell countsOrdered By: Cristal Astudillo on 08-19-2023 MCH (RBC) [Entitic mass] 28.6 pg 27.0-32.0 [facility] MCHC (RBC) [Mass/Vol] 31.9 g/dL 32-36 [facility] Nucleated RBC/100 WBC (Bld) [Ratio] 0 % 0-5 [facility] Platelet mean volume (Bld) [Entitic vol] 10.4 fL 6.2-12.0 [facility] Platelets (Bld) [#/Vol] 399 10*3/uL 150-450 [facility] No Panel InformationOrdered By: Cristal Astudillo on 08-19-2023 Estimated GFR (MDRD) Amer 76 mL/min >60 [facility] Comment on above: GFR Calc Estimated GFR (MDRD) Non-Af Amer 63 mL/min >60 [facility] Comment on above: Non- GFR Calc Vitamin D 25-Hydroxy 55.7 ng/mL [facility] Comment on above: Vitamin D 25(OH) Sta tus Range Deficiency <20 ng/mL (50nmol/L) Insufficiency 20 - 30 ng/mL (50 - 75 nmol/L) Sufficiency 30 - 100 ng/mL (75 - 250 nmol/L) Toxicity >100 ng/mL (>250 nmol/L) RBC Auto (Bld) [#/Vol]Ordere d By: Cristal Astudillo on 08-19-2023 RBC (Bld) [#/Vol] 4.79 10*6/uL 4.2-5.4 [facility] Serum or plasma calcium josué urement (mass/volume)Ordered By: Cristal Astudillo on 08-19-2023 Calcium [Mass/Vol] 9.1 mg/dL 8.5-10.1 [facility] Serum or plasma creatinine m easurement (mass/volume)Ordered By: Cristal Astudillo on 08-19-2023 Creatinine [Mass/Vol] 0.92 mg/dL 0.55-1.02 [facility] Comment on above: The validity of the calculated GFR & GFRAA in patients over 70 years has not been determined. Clinical correlation is essential. Serum or plasma thyroid stim ulating hormone (TSH) measurement (units/volume)Ordered By: Cristal Astudillo on 08-19-2023 TSH Qn 2.40 uIU/mL 0.358-3.74 [facility] Serum or plasma urea nitroge n measurement (mass/volume)Ordered By: Cristal Astudillo on 08-19-2023 Urea nitrogen [Mass/Vol] 19 mg/dL 7-18 [facility] Thin prep Papanicolaou smear with manual screeningOrdered By: Cristal Astudillo on 08-19-2023 Thin prep Papanicolaou smear with manual screening 3.3 g/dL 3.2-5.0 [facility] Thin prep Papanicolaou smear with manual screening 19 U/L 15-37 [facility] Thin prep Papanicolaou smear with manual screening 7 5-15 [facility] Whole blood hemoglobin A1c/t otal hemoglobin ratio (mass fraction)Ordered By: Cristal Astudillo on 08-19-2023 HbA1c (Bld) [Mass fraction] 5.6 % 3.8-5.6 [facility] Comment on above: Normal < 5.7 % Predi abetic 5.7 - 6.4 % Diabetic >or= 6.5 % Please note range changes. Basophil percentageOrdered B y: Sathish Brewster on 07-07-2023 Bilirubin [Mass/Vol] 1.10 mg/dL 0.20-1.00 [facility] Comment on above: For patients on eltr ombopag therapy, use of Dimension [place] TBIL is not recommended. Cholesterol [Mass/Vol] 237 mg/dL <200 [facility] Comment on above: <200 mg/dL Desirable 200-240 mg/dL Borderline >240 mg/dL High Risk Protein [Mass/Vol] 7.0 g/dL 6.4-8.2 [facility] Triglyceride [Mass/Vol] 158 mg/dL <199 [facility] Comment on above: The drugs N-Acetylcy steine and Metamizole may falsely depress this assay.Serum Triglycerides Reference Interval Normal <150 mg/dL Borderline high 150 - 199 mg/dL High 200 - 499 mg/dL Very High > or = 500 mg/dL Direct bilirubinOrdered By: Sathish Brewster on 07-07-2023 Bilirubin.direct [Mass/Vol] 0.20 mg/dL 0.00-0.30 [facility] High density lipoprotein (HD L) measurementOrdered By: Sathish Brewster on 07-07-2023 Cholesterol in HDL (Body fld) [Mass/Vol] 54 mg/dL >40 [facility] Comment on above: The drugs N-Acetylcy steine and Metamizole may falsely depress this assay. Reference Range HDL <40 mg/dL Low HDL Cholesterol HDL >or= 60 mg/dL High HDL Cholesterol Laboratory - Chemistry and C hemistry - challengeOrdered By: Sathish Brewster on 07-07-2023 ALP [Catalytic activity/Vol] 89 U/L 45-117 [facility] ALT [Catalytic activity/Vol] 29 U/L 13-56 [facility] Globulin (S) [Mass/Vol] 3.7 g/dL 2.2-4.2 [facility] Low density lipoprotein (LDL ) cholesterol measurementOrdered By: Sathish Brewster on 07-07-2023 Cholesterol in LDL (Body fld) [Moles/Vol] 151 mg/dL 0-130 [facility] Thin prep Papanicolaou smear with manual screeningOrdered By: Sathish Brewster on 07-07-2023 Thin prep Papanicolaou smear with manual screening 3.3 g/dL 3.2-5.0 [facility] Thin prep Papanicolaou smear with manual screening 19 U/L 15-37 [facility] Very low density lipoprotein (VLDL) cholesterol measurementOrdered By: Sathish Brewster on 07-07-2023 Cholesterol in VLDL Calc [Moles/Vol] 32 mg/dL 5-40 [facility] Absolute lymphocyte countOrd ered By: Morelia Higgins on 05-18-2023 Lymphocytes Auto (Unsp spec) [#/Vol] 1.20 10*3/uL 0.83-4.51 [facility] Basophil percentageOrdered B y: Morelia Higgins on 05-18-2023 Basophils/100 WBC (Bld) 0.7 % 0-1 [facility] Bilirubin [Mass/Vol] 0.90 mg/dL 0.20-1.00 [facility] Comment on above: For patients on eltr ombopag therapy, use of Dimension [place] TBIL is not recommended. Chloride [Moles/Vol] 107 mmol/L 98-107 [facility] Eosinophils/100 WBC (Bld) 1.1 % 0-5 [facility] Glucose [Mass/Vol] 105 mg/dL 74-106 [facility] Comment on above: Fasting Glucose resu lt from 100 to 125 mg/dL suggests IMPAIRED HOMEOSTASIS per A.D.A. criteria. Neutrophils (Bld) [#/Vol] 6.9 10*3/uL 2.0-7.7 [facility] Neutrophils/100 WBC (Bld) 77.8 % 47-70 [facility] Potassium [Moles/Vol] 3.7 mmol/L 3.5-5.1 [facility] Protein [Mass/Vol] 6.8 g/dL 6.4-8.2 [facility] Sodium [Moles/Vol] 139 mmol/L 136-145 [facility] WBC (Bld) [#/Vol] 8.9 10*3/uL 4.4-11.0 [facility] Blood erythrocytes count (nu mber/volume)Ordered By: Morelia Higgins on 05-18-2023 RBC (Bld) [#/Vol] 4.29 10*6/uL 4.2-5.4 [facility] Blood hemoglobin measurement (mass/volume)Ordered By: Morelia Higgins on 05-18-2023 Hemoglobin (Bld) [Mass/Vol] 12.9 g/dL 12.0-15.0 [facility] Blood lymphocytes/100 leukoc ytesOrdered By: Morelia Higgins on 05-18-2023 Lymphocytes/100 WBC (Bld) 13.5 % 19-41 [facility] Blood monocytes/100 leukocyt esOrdered By: Morelia Higgins on 05-18-2023 Monocytes/100 WBC (Bld) 6.5 % 0-10 [facility] Blood platelet mean volumeOr dered By: Morelia Higgins on 05-18-2023 Platelet mean volume (Bld) [Entitic vol] 10.5 fL 6.2-12.0 [facility] Determination of erythrocyte mean corpuscular volume (MCV)Ordered By: Morelia Higgins on 05-18-2023 MCV (RBC) [Entitic vol] 91.4 fL 81-99 [facility] Hematocrit Auto (Bld) [Volum e fraction]Ordered By: Morelia Higgins on 05-18-2023 Hematocrit (Bld) [Volume fraction] 39.2 % 37-47 [facility] - Chemistry and C hemistry - challengeOrdered By: Morelia Higgins on 05-18-2023 ALP [Catalytic activity/Vol] 78 U/L 45-117 [facility] ALT [Catalytic activity/Vol] 33 U/L 13-56 [facility] CO2 [Moles/Vol] 30.0 mmol/L 21.0-32.0 [facility] Globulin (S) [Mass/Vol] 3.6 g/dL 2.2-4.2 [facility] Urea nitrogen/Creatinine [Mass ratio] 25.4 mg/mg 10-20 [facility] - Hematology and Cell countsOrdered By: Morelia Higgins on 05-18-2023 Erythrocyte distribution width (RBC) [Entitic vol] 40.4 fL 35.1-43.9 [facility] Erythrocyte distribution width (RBC) [Ratio] 12.1 % 11.6-14.6 [facility] Immature granulocytes/100 WBC (Bld) 0.400 % 0.0-0.9 [facility] Comment on above: IG% - Immature Granu locytes (promyelocytes, myelocytes and metamyelocytes) > 1% indicates that a LEFT SHIFT is Present. MCH (RBC) [Entitic mass] 30.1 pg 27.0-32.0 [facility] Nucleated RBC/100 WBC (Bld) [Ratio] 0 % 0-5 [facility] MCHC Auto (RBC) [Mass/Vol]Or dered By: Morelia Higgins on 05-18-2023 MCHC (RBC) [Mass/Vol] 32.9 g/dL 32-36 [facility] No Panel InformationOrdered By: Morelia Higgins on 05-18-2023 Estimated GFR (MDRD) Amer 90 mL/min >60 [facility] Comment on above: GFR Calc Estimated GFR (MDRD) Non-Af Amer 75 mL/min >60 [facility] Comment on above: Non- GFR Calc Platelets bldOrdered By: Niels Higgins on 05-18-2023 Platelets (Bld) [#/Vol] 335 10*3/uL 150-450 [facility] Serum or plasma albumin josué urement (mass/volume)Ordered By: Morelia Higgins on 05-18-2023 Albumin [Mass/Vol] 3.2 g/dL 3.2-5.0 [facility] Serum or plasma albumin/glob ulin mass ratioOrdered By: Morelia Higgins on 05-18-2023 Albumin/Globulin [Mass ratio] 0.9 {ratio} 0.9-2.4 [facility] Serum or plasma calcium josué urement (mass/volume)Ordered By: Morelia Higgins on 05-18-2023 Calcium [Mass/Vol] 9.0 mg/dL 8.5-10.1 [facility] Serum or plasma creatinine m easurement (mass/volume)Ordered By: Morelia Higgins on 05-18-2023 Creatinine [Mass/Vol] 0.79 mg/dL 0.55-1.02 [facility] Comment on above: The validity of the calculated GFR & GFRAA in patients over 70 years has not been determined. Clinical correlation is essential. Serum or plasma urea nitroge n measurement (mass/volume)Ordered By: Morelia Higgins on 05-18-2023 Urea nitrogen [Mass/Vol] 20 mg/dL 7-18 [facility] Thin prep Papanicolaou smear with manual screeningOrdered By: Morelia Higgins on 05-18-2023 Thin prep Papanicolaou smear with manual screening 19 U/L 15-37 [facility] Thin prep Papanicolaou smear with manual screening 2 5-15 [facility] Absolute lymphocyte countOrd ered By: Sathish Brewster on 03-22-2023 Lymphocytes Auto (Unsp spec) [#/Vol] 1.50 10*3/uL 0.83-4.51 [facility] Basophil percentageOrdered B y: Sathish Brewster on 03-22-2023 Basophils/100 WBC (Bld) 1.0 % 0-1 [facility] Eosinophils/100 WBC (Bld) 1.3 % 0-5 [facility] Neutrophils (Bld) [#/Vol] 5.5 10*3/uL 2.0-7.7 [facility] Neutrophils/100 WBC (Bld) 71.1 % 47-70 [facility] WBC (Bld) [#/Vol] 7.8 10*3/uL 4.4-11.0 [facility] Bilirubin [Mass/Vol] 0.80 mg/dL 0.20-1.00 [facility] Comment on above: For patients on eltr ombopag therapy, use of Dimension [place] TBIL is not recommended. Chloride [Moles/Vol] 106 mmol/L 98-107 [facility] Cholesterol [Mass/Vol] 248 mg/dL <200 [facility] Comment on above: <200 mg/dL Desirable 200-240 mg/dL Borderline >240 mg/dL High Risk Glucose [Mass/Vol] 117 mg/dL 74-106 [facility] Comment on above: Fasting Glucose resu lt from 100 to 125 mg/dL suggests IMPAIRED HOMEOSTASIS per A.D.A. criteria. Potassium [Moles/Vol] 4.2 mmol/L 3.5-5.1 [facility] Protein [Mass/Vol] 6.9 g/dL 6.4-8.2 [facility] Sodium [Moles/Vol] 140 mmol/L 136-145 [facility] Triglyceride [Mass/Vol] 137 mg/dL <199 [facility] Comment on above: The drugs N-Acetylcy steine and Metamizole may falsely depress this assay.Serum Triglycerides Reference Interval Normal <150 mg/dL Borderline high 150 - 199 mg/dL High 200 - 499 mg/dL Very High > or = 500 mg/dL Blood erythrocytes count (nu mber/volume)Ordered By: Sathish Brewster on 03-22-2023 RBC (Bld) [#/Vol] 4.55 10*6/uL 4.2-5.4 [facility] Blood hemoglobin measurement (mass/volume)Ordered By: Sathish Brewster on 03-22-2023 Hemoglobin (Bld) [Mass/Vol] 13.3 g/dL 12.0-15.0 [facility] Blood lymphocytes/100 leukoc ytesOrdered By: Sathish Brewster on 03-22-2023 Lymphocytes/100 WBC (Bld) 19.3 % 19-41 [facility] Blood monocytes/100 leukocyt esOrdered By: Sathish Brewster on 03-22-2023 Monocytes/100 WBC (Bld) 6.7 % 0-10 [facility] Blood platelet mean volumeOr dered By: Sathish Brewster on 03-22-2023 Platelet mean volume (Bld) [Entitic vol] 10.4 fL 6.2-12.0 [facility] Determination of erythrocyte mean corpuscular volume (MCV)Ordered By: Sathish Brewster on 03-22-2023 MCV (RBC) [Entitic vol] 92.5 fL 81-99 [facility] Direct bilirubinOrdered By: Sathish Brewster on 03-22-2023 Bilirubin.direct [Mass/Vol] 0.15 mg/dL 0.00-0.30 [facility] Hematocrit Auto (Bld) [Volum e fraction]Ordered By: Sathish Brewster on 03-22-2023 Hematocrit (Bld) [Volume fraction] 42.1 % 37-47 [facility] Laboratory - Chemistry and C hemistry - challengeOrdered By: Sathish Brewster on 03-22-2023 ALP [Catalytic activity/Vol] 80 U/L 45-117 [facility] ALT [Catalytic activity/Vol] 42 U/L 13-56 [facility] CO2 [Moles/Vol] 32.0 mmol/L 21.0-32.0 [facility] Globulin (S) [Mass/Vol] 3.7 g/dL 2.2-4.2 [facility] Urea nitrogen/Creatinine [Mass ratio] 23.0 mg/mg 10-20 [facility] Laboratory - Hematology and Cell countsOrdered By: Sathish Brewster on 03-22-2023 Erythrocyte distribution width (RBC) [Entitic vol] 43.6 fL 35.1-43.9 [facility] Erythrocyte distribution width (RBC) [Ratio] 12.9 % 11.6-14.6 [facility] Immature granulocytes/100 WBC (Bld) 0.600 % 0.0-0.9 [facility] Comment on above: IG% - Immature Granu locytes (promyelocytes, myelocytes and metamyelocytes) > 1% indicates that a LEFT SHIFT is Present. MCH (RBC) [Entitic mass] 29.2 pg 27.0-32.0 [facility] Nucleated RBC/100 WBC (Bld) [Ratio] 0 % 0-5 [facility] MCHC Auto (RBC) [Mass/Vol]Or dered By: Sathish Brewster on 03-22-2023 MCHC (RBC) [Mass/Vol] 31.6 g/dL 32-36 [facility] No Panel InformationOrdered By: Sathish Brewster on 03-22-2023 Estimated GFR (MDRD) Amer 91 mL/min >60 [facility] Comment on above: GFR Calc Estimated GFR (MDRD) Non-Af Amer 75 mL/min >60 [facility] Comment on above: Non- GFR Calc Platelets bldOrdered By: Blair Brewster on 03-22-2023 Platelets (Bld) [#/Vol] 347 10*3/uL 150-450 [facility] Serum or plasma albumin josué urement (mass/volume)Ordered By: Sathish Brewster on 03-22-2023 Albumin [Mass/Vol] 3.2 g/dL 3.2-5.0 [facility] Serum or plasma albumin/glob ulin mass ratioOrdered By: Sathish Brewster on 03-22-2023 Albumin/Globulin [Mass ratio] 0.9 {ratio} 0.9-2.4 [facility] Serum or plasma calcium josué urement (mass/volume)Ordered By: Sathish Brewster on 03-22-2023 Calcium [Mass/Vol] 9.2 mg/dL 8.5-10.1 [facility] Serum or plasma cholesterol in HDL measurement (mass/volume)Ordered By: Sathish Brewster on 03-22-2023 Cholesterol in HDL [Mass/Vol] 51 mg/dL >40 [facility] Comment on above: The drugs N-Acetylcy steine and Metamizole may falsely depress this assay. Reference Range HDL <40 mg/dL Low HDL Cholesterol HDL >or= 60 mg/dL High HDL Cholesterol Serum or plasma cholesterol in VLDL measurement (mass/volume)Ordered By: Sathish Brewster on 03-22-2023 Cholesterol in VLDL [Mass/Vol] 27 mg/dL 5-40 [facility] Serum or plasma creatinine m easurement (mass/volume)Ordered By: Sathish Brewster on 03-22-2023 Creatinine [Mass/Vol] 0.78 mg/dL 0.55-1.02 [facility] Comment on above: The validity of the calculated GFR & GFRAA in patients over 70 years has not been determined. Clinical correlation is essential. Serum or plasma low density lipoprotein (LDL) cholesterol measurement (mass/volume)Ordered By: Sathish Brewster on 03-22-2023 Cholesterol in LDL [Mass/Vol] 170 mg/dL 0-130 [facility] Serum or plasma urea nitroge n measurement (mass/volume)Ordered By: Sathish Brewster on 03-22-2023 Urea nitrogen [Mass/Vol] 18 mg/dL 7-18 [facility] Thin prep Papanicolaou smear with manual screeningOrdered By: Sathish Brewster on 03-22-2023 Thin prep Papanicolaou smear with manual screening 21 U/L 15-37 [facility] Thin prep Papanicolaou smear with manual screening 2 5-15 [facility] Absolute lymphocyte countOrd ered By: Cristal Astudillo on 01-11-2023 Lymphocytes Auto (Unsp spec) [#/Vol] 1.36 10*3/uL 0.83-4.51 [facility] Basophil percentageOrdered B y: Cristal Astudillo on 01-11-2023 Basophils/100 WBC (Bld) 0.8 % 0-1 [facility] Bilirubin [Mass/Vol] 1.20 mg/dL 0.20-1.00 [facility] Comment on above: For patients on eltr ombopag therapy, use of Dimension [place] TBIL is not recommended. Chloride [Moles/Vol] 105 mmol/L 98-107 [facility] Eosinophils/100 WBC (Bld) 2.2 % 0-5 [facility] Glucose [Mass/Vol] 107 mg/dL 74-106 [facility] Comment on above: Fasting Glucose resu lt from 100 to 125 mg/dL suggests IMPAIRED HOMEOSTASIS per A.D.A. criteria. Neutrophils (Bld) [#/Vol] 6.2 10*3/uL 2.0-7.7 [facility] Neutrophils/100 WBC (Bld) 73.1 % 47-70 [facility] Potassium [Moles/Vol] 4.0 mmol/L 3.5-5.1 [facility] Protein [Mass/Vol] 6.9 g/dL 6.4-8.2 [facility] Sodium [Moles/Vol] 138 mmol/L 136-145 [facility] WBC (Bld) [#/Vol] 8.5 10*3/uL 4.4-11.0 [facility] Basophil percentageOrdered B y: Marcial Abhi on 01-11-2023 Cholesterol [Mass/Vol] 167 mg/dL <200 [facility] Comment on above: <200 mg/dL Desirable 200-240 mg/dL Borderline >240 mg/dL High Risk Triglyceride [Mass/Vol] 114 mg/dL <199 [facility] Comment on above: The drugs N-Acetylcy steine and Metamizole may falsely depress this assay.Serum Triglycerides Reference Interval Normal <150 mg/dL Borderline high 150 - 199 mg/dL High 200 - 499 mg/dL Very High > or = 500 mg/dL Blood erythrocytes count (nu mber/volume)Ordered By: Cristal Astudillo on 01-11-2023 RBC (Bld) [#/Vol] 4.43 10*6/uL 4.2-5.4 [facility] Blood hemoglobin measurement (mass/volume)Ordered By: Cristal Astudillo on 01-11-2023 Hemoglobin (Bld) [Mass/Vol] 12.8 g/dL 12.0-15.0 [facility] Blood lymphocytes/100 leukoc ytesOrdered By: Cristal Astudillo on 01-11-2023 Lymphocytes/100 WBC (Bld) 16.0 % 19-41 [facility] Blood monocytes/100 leukocyt esOrdered By: Cristal Astudillo on 01-11-2023 Monocytes/100 WBC (Bld) 7.4 % 0-10 [facility] Blood platelet mean volumeOr dered By: Cristal Astudillo on 01-11-2023 Platelet mean volume (Bld) [Entitic vol] 10.7 fL 6.2-12.0 [facility] Determination of erythrocyte mean corpuscular volume (MCV)Ordered By: Cristal Astudillo on 01-11-2023 MCV (RBC) [Entitic vol] 91.9 fL 81-99 [facility] Direct bilirubinOrdered By: Cristal Astudillo on 01-11-2023 Bilirubin.direct [Mass/Vol] 0.25 mg/dL 0.00-0.30 [facility] Hematocrit Auto (Bld) [Volum e fraction]Ordered By: Cristal Astudillo on 01-11-2023 Hematocrit (Bld) [Volume fraction] 40.7 % 37-47 [facility] Laboratory - Chemistry and C hemistry - challengeOrdered By: Cristalmanuel Astudillo on 01-11-2023 ALP [Catalytic activity/Vol] 78 U/L 45-117 [facility] ALT [Catalytic activity/Vol] 36 U/L 13-56 [facility] CO2 [Moles/Vol] 31.0 mmol/L 21.0-32.0 [facility] Globulin (S) [Mass/Vol] 3.7 g/dL 2.2-4.2 [facility] Magnesium [Mass/Vol] 2.3 mg/dL 1.6-2.6 [facility] Urea nitrogen/Creatinine [Mass ratio] 23.4 mg/mg 10-20 [facility] Laboratory - Hematology and Cell countsOrdered By: Cristal Astudillo on 01-11-2023 Erythrocyte distribution width (RBC) [Entitic vol] 41.5 fL 35.1-43.9 [facility] Erythrocyte distribution width (RBC) [Ratio] 12.3 % 11.6-14.6 [facility] Immature granulocytes/100 WBC (Bld) 0.500 % 0.0-0.9 [facility] Comment on above: IG% - Immature Granu locytes (promyelocytes, myelocytes and metamyelocytes) > 1% indicates that a LEFT SHIFT is Present. MCH (RBC) [Entitic mass] 28.9 pg 27.0-32.0 [facility] Nucleated RBC/100 WBC (Bld) [Ratio] 0 % 0-5 [facility] MCHC Auto (RBC) [Mass/Vol]Or dered By: Cristal Astudillo on 01-11-2023 MCHC (RBC) [Mass/Vol] 31.4 g/dL 32-36 [facility] No Panel InformationOrdered By: Cristal Astudillo on 01-11-2023 Estimated GFR (MDRD) Amer 82 mL/min >60 [facility] Comment on above: GFR Calc Estimated GFR (MDRD) Non-Af Amer 68 mL/min >60 [facility] Comment on above: Non- GFR Calc Thyroid Stimulating Hormone (TSH) 2.40 uIU/mL 0.358-3.74 [facility] Vitamin D 25-Hydroxy 72.8 ng/mL [facility] Comment on above: Vitamin D 25(OH) Sta tus Range Deficiency <20 ng/mL (50nmol/L) Insufficiency 20 - 30 ng/mL (50 - 75 nmol/L) Sufficiency 30 - 100 ng/mL (75 - 250 nmol/L) Toxicity >100 ng/mL (>250 nmol/L) Platelets bldOrdered By: Alize Astudillo on 01-11-2023 Platelets (Bld) [#/Vol] 338 10*3/uL 150-450 [facility] Serum or plasma albumin josué urement (mass/volume)Ordered By: Cristal Astudillo on 01-11-2023 Albumin [Mass/Vol] 3.2 g/dL 3.2-5.0 [facility] Serum or plasma albumin/glob ulin mass ratioOrdered By: Cristal Astudillo on 01-11-2023 Albumin/Globulin [Mass ratio] 0.9 {ratio} 0.9-2.4 [facility] Serum or plasma calcium josué urement (mass/volume)Ordered By: Cristal Astudillo on 01-11-2023 Calcium [Mass/Vol] 9.0 mg/dL 8.5-10.1 [facility] Serum or plasma cholesterol in HDL measurement (mass/volume)Ordered By: Marcial Moe on 01-11-2023 Cholesterol in HDL [Mass/Vol] 54 mg/dL >40 [facility] Comment on above: The drugs N-Acetylcy steine and Metamizole may falsely depress this assay. Reference Range HDL <40 mg/dL Low HDL Cholesterol HDL >or= 60 mg/dL High HDL Cholesterol Serum or plasma cholesterol in VLDL measurement (mass/volume)Ordered By: Marcial Moe on 01-11-2023 Cholesterol in VLDL [Mass/Vol] 23 mg/dL 5-40 [facility] Serum or plasma creatinine m easurement (mass/volume)Ordered By: Cristal Astudillo on 01-11-2023 Creatinine [Mass/Vol] 0.86 mg/dL 0.55-1.02 [facility] Comment on above: The validity of the calculated GFR & GFRAA in patients over 70 years has not been determined. Clinical correlation is essential. Serum or plasma low density lipoprotein (LDL) cholesterol measurement (mass/volume)Ordered By: Marcial Moe on 01-11-2023 Cholesterol in LDL [Mass/Vol] 90 mg/dL 0-130 [facility] Serum or plasma urea nitroge n measurement (mass/volume)Ordered By: Cristal Astudillo on 01-11-2023 Urea nitrogen [Mass/Vol] 20 mg/dL 7-18 [facility] Thin prep Papanicolaou smear with manual screeningOrdered By: Cristal Astudillo on 01-11-2023 Thin prep Papanicolaou smear with manual screening 20 U/L 15-37 [facility] Thin prep Papanicolaou smear with manual screening 2 5-15 [facility] Absolute lymphocyte countOrd ered By: Morelia Higgins on 11-22-2022 Lymphocytes Auto (Unsp spec) [#/Vol] 1.17 10*3/uL 0.83-4.51 [facility] Basophil percentageOrdered B y: Morelia Higgins on 11-22-2022 Basophils/100 WBC (Bld) 0.9 % 0-1 [facility] Bilirubin [Mass/Vol] 0.60 mg/dL 0.20-1.00 [facility] Comment on above: For patients on eltr ombopag therapy, use of Dimension [place] TBIL is not recommended. Chloride [Moles/Vol] 108 mmol/L 98-107 [facility] Eosinophils/100 WBC (Bld) 4.7 % 0-5 [facility] Glucose [Mass/Vol] 106 mg/dL 74-106 [facility] Comment on above: Fasting Glucose resu lt from 100 to 125 mg/dL suggests IMPAIRED HOMEOSTASIS per A.D.A. criteria. Neutrophils (Bld) [#/Vol] 6.6 10*3/uL 2.0-7.7 [facility] Neutrophils/100 WBC (Bld) 71.5 % 47-70 [facility] Potassium [Moles/Vol] 4.4 mmol/L 3.5-5.1 [facility] Protein [Mass/Vol] 6.8 g/dL 6.4-8.2 [facility] Sodium [Moles/Vol] 139 mmol/L 136-145 [facility] WBC (Bld) [#/Vol] 9.3 10*3/uL 4.4-11.0 [facility] Blood erythrocytes count (nu mber/volume)Ordered By: Morelia Higgins on 11-22-2022 RBC (Bld) [#/Vol] 4.49 10*6/uL 4.2-5.4 [facility] Blood hemoglobin measurement (mass/volume)Ordered By: Morelia Higgins on 11-22-2022 Hemoglobin (Bld) [Mass/Vol] 12.9 g/dL 12.0-15.0 [facility] Blood lymphocytes/100 leukoc ytesOrdered By: Morelia Higgins on 11-22-2022 Lymphocytes/100 WBC (Bld) 12.6 % 19-41 [facility] Blood monocytes/100 leukocyt esOrdered By: Morelia Higgins on 11-22-2022 Monocytes/100 WBC (Bld) 9.7 % 0-10 [facility] Blood platelet mean volumeOr dered By: Morelia Higgins on 11-22-2022 Platelet mean volume (Bld) [Entitic vol] 10.5 fL 6.2-12.0 [facility] Determination of erythrocyte mean corpuscular volume (MCV)Ordered By: Morelia Higgins on 11-22-2022 MCV (RBC) [Entitic vol] 91.5 fL 81-99 [facility] Hematocrit Auto (Bld) [Volum e fraction]Ordered By: Morelia Higgins on 11-22-2022 Hematocrit (Bld) [Volume fraction] 41.1 % 37-47 [facility] Laboratory - Chemistry and C hemistry - challengeOrdered By: Morelia Higgins on 11-22-2022 ALP [Catalytic activity/Vol] 81 U/L 45-117 [facility] ALT [Catalytic activity/Vol] 25 U/L 13-56 [facility] CO2 [Moles/Vol] 28.0 mmol/L 21.0-32.0 [facility] Globulin (S) [Mass/Vol] 3.6 g/dL 2.2-4.2 [facility] Urea nitrogen/Creatinine [Mass ratio] 28.1 mg/mg 10-20 [facility] Laboratory - Hematology and Cell countsOrdered By: Morelia Higgins on 11-22-2022 Erythrocyte distribution width (RBC) [Entitic vol] 41.7 fL 35.1-43.9 [facility] Erythrocyte distribution width (RBC) [Ratio] 12.5 % 11.6-14.6 [facility] Immature granulocytes/100 WBC (Bld) 0.600 % 0.0-0.9 [facility] Comment on above: IG% - Immature Granu locytes (promyelocytes, myelocytes and metamyelocytes) > 1% indicates that a LEFT SHIFT is Present. MCH (RBC) [Entitic mass] 28.7 pg 27.0-32.0 [facility] Nucleated RBC/100 WBC (Bld) [Ratio] 0 % 0-5 [facility] MCHC Auto (RBC) [Mass/Vol]Or dered By: Morelia Higgins on 11-22-2022 MCHC (RBC) [Mass/Vol] 31.4 g/dL 32-36 [facility] No Panel InformationOrdered By: Morelia Higgins on 11-22-2022 Estimated GFR (MDRD) Amer 79 mL/min >60 [facility] Comment on above: GFR Calc Estimated GFR (MDRD) Non-Af Amer 65 mL/min >60 [facility] Comment on above: Non- GFR Calc Platelets bldOrdered By: Niels Higgins on 11-22-2022 Platelets (Bld) [#/Vol] 342 10*3/uL 150-450 [facility] Serum or plasma albumin josué urement (mass/volume)Ordered By: Morelia Higgins on 11-22-2022 Albumin [Mass/Vol] 3.2 g/dL 3.2-5.0 [facility] Serum or plasma albumin/glob ulin mass ratioOrdered By: Morelia Higgins on 11-22-2022 Albumin/Globulin [Mass ratio] 0.9 {ratio} 0.9-2.4 [facility] Serum or plasma calcium josué urement (mass/volume)Ordered By: Morelia Higgins on 11-22-2022 Calcium [Mass/Vol] 8.8 mg/dL 8.5-10.1 [facility] Serum or plasma creatinine m easurement (mass/volume)Ordered By: Morelia Higgins on 11-22-2022 Creatinine [Mass/Vol] 0.89 mg/dL 0.55-1.02 [facility] Comment on above: The validity of the calculated GFR & GFRAA in patients over 70 years has not been determined. Clinical correlation is essential. Serum or plasma urea nitroge n measurement (mass/volume)Ordered By: Morelia Higgins on 11-22-2022 Urea nitrogen [Mass/Vol] 25 mg/dL 7-18 [facility] Thin prep Papanicolaou smear with manual screeningOrdered By: Morelia Higgins on 11-22-2022 Thin prep Papanicolaou smear with manual screening 15 U/L 15-37 [facility] Thin prep Papanicolaou smear with manual screening 3 5-15 [facility] Laboratory - Chemistry and C hemistry - challengeon 08-04-2022 Bilirubin Ql (U) Negative [facility] Glucose Ql (U) Negative [facility] Ketones Ql (U) Trace (5) [facility] pH (U) 5.0 [pH] [facility] Specific gravity (U) [Rel density] 1.010 [facility] Urobilinogen (U) [Mass/Vol] 0.7188849 mg/dL [facility] Laboratory - Hematology and Cell countson 08-04-2022 Hemoglobin Ql (U) Negative [facility] - Specimen inform ationon 08-04-2022 Clarity (U) Clear [facility] Color (U) Colorless [facility] Laboratory - Urinalysison Nitrite Ql (U) Negative [facility] Protein Ql (U) Negative [facility] No Panel Informationon 08-04 Urine Leukocytes Negatve [facility] Absolute lymphocyte countOrd ered By: Dr. Astudillo on 07-14-2022 Lymphocytes Auto (Unsp spec) [#/Vol] 1.20 10*3/uL 0.83-4.51 [facility] Basophil percentageOrdered B y: Dr. Astudillo on 07-14-2022 Basophils/100 WBC (Bld) 0.7 % 0-1 [facility] Bilirubin [Mass/Vol] 0.90 mg/dL 0.20-1.00 [facility] Comment on above: For patients on eltr ombopag therapy, use of Dimension [place] TBIL is not recommended. Chloride [Moles/Vol] 106 mmol/L 98-107 [facility] Eosinophils/100 WBC (Bld) 1.0 % 0-5 [facility] Glucose [Mass/Vol] 121 mg/dL 74-106 [facility] Comment on above: Fasting Glucose resu lt from 100 to 125 mg/dL suggests IMPAIRED HOMEOSTASIS per A.D.A. criteria. Neutrophils (Bld) [#/Vol] 7.5 10*3/uL 2.0-7.7 [facility] Neutrophils/100 WBC (Bld) 79.0 % 47-70 [facility] Potassium [Moles/Vol] 4.3 mmol/L 3.5-5.1 [facility] Protein [Mass/Vol] 7.1 g/dL 6.4-8.2 [facility] Sodium [Moles/Vol] 140 mmol/L 136-145 [facility] WBC (Bld) [#/Vol] 9.4 10*3/uL 4.4-11.0 [facility] Basophil percentageOrdered B y: Dr. Moe on 07-14-2022 Cholesterol [Mass/Vol] 156 mg/dL <200 [facility] Comment on above: <200 mg/dL Desirable 200-240 mg/dL Borderline >240 mg/dL High Risk Triglyceride [Mass/Vol] 87 mg/dL <199 [facility] Comment on above: The drugs N-Acetylcy steine and Metamizole may falsely depress this assay.Serum Triglycerides Reference Interval Normal <150 mg/dL Borderline high 150 - 199 mg/dL High 200 - 499 mg/dL Very High > or = 500 mg/dL Blood erythrocytes count (nu mber/volume)Ordered By: Dr. Astudillo on 07-14-2022 RBC (Bld) [#/Vol] 4.70 10*6/uL 4.2-5.4 [facility] Blood hemoglobin measurement (mass/volume)Ordered By: Dr. Astudillo on 07-14-2022 Hemoglobin (Bld) [Mass/Vol] 13.4 g/dL 12.0-15.0 [facility] Blood lymphocytes/100 leukoc ytesOrdered By: Dr. Astudillo on 07-14-2022 Lymphocytes/100 WBC (Bld) 12.7 % 19-41 [facility] Blood monocytes/100 leukocyt esOrdered By: Dr. Astudillo on 07-14-2022 Monocytes/100 WBC (Bld) 6.2 % 0-10 [facility] Blood platelet mean volumeOr dered By: Dr. Astudillo on 07-14-2022 Platelet mean volume (Bld) [Entitic vol] 10.0 fL 6.2-12.0 [facility] Determination of erythrocyte mean corpuscular volume (MCV)Ordered By: Dr. Astudillo on 07-14-2022 MCV (RBC) [Entitic vol] 90.0 fL 81-99 [facility] Direct bilirubinOrdered By: Dr. Moe on 07-14-2022 Bilirubin.direct [Mass/Vol] 0.17 mg/dL 0.00-0.30 [facility] Hematocrit Auto (Bld) [Volum e fraction]Ordered By: Dr. Astudillo on 07-14-2022 Hematocrit (Bld) [Volume fraction] 42.3 % 37-47 [facility] Laboratory - Chemistry and C hemistry - challengeOrdered By: Dr. Astudillo on 07-14-2022 ALP [Catalytic activity/Vol] 80 U/L 45-117 [facility] ALT [Catalytic activity/Vol] 29 U/L 13-56 [facility] CO2 [Moles/Vol] 31.0 mmol/L 21.0-32.0 [facility] Globulin (S) [Mass/Vol] 3.7 g/dL 2.2-4.2 [facility] Urea nitrogen/Creatinine [Mass ratio] 19.2 mg/mg 10-20 [facility] Laboratory - Hematology and Cell countsOrdered By: Dr. Astudillo on 07-14-2022 Erythrocyte distribution width (RBC) [Entitic vol] 39.5 fL 35.1-43.9 [facility] Erythrocyte distribution width (RBC) [Ratio] 12.0 % 11.6-14.6 [facility] Immature granulocytes/100 WBC (Bld) 0.400 % 0.0-0.9 [facility] Comment on above: IG% - Immature Granu locytes (promyelocytes, myelocytes and metamyelocytes) > 1% indicates that a LEFT SHIFT is Present. MCH (RBC) [Entitic mass] 28.5 pg 27.0-32.0 [facility] Nucleated RBC/100 WBC (Bld) [Ratio] 0 % 0-5 [facility] MCHC Auto (RBC) [Mass/Vol]Or dered By: Dr. Astudillo on 07-14-2022 MCHC (RBC) [Mass/Vol] 31.7 g/dL 32-36 [facility] No Panel InformationOrdered By: Dr. Astudillo on 07-14-2022 Estimated GFR (MDRD) Amer 74 mL/min >60 [facility] Comment on above: GFR Calc Estimated GFR (MDRD) Non-Af Amer 61 mL/min >60 [facility] Comment on above: Non- GFR Calc Platelets bldOrdered By: Dr. Astudillo on 07-14-2022 Platelets (Bld) [#/Vol] 379 10*3/uL 150-450 [facility] Serum or plasma albumin josué urement (mass/volume)Ordered By: Dr. Astudillo on 07-14-2022 Albumin [Mass/Vol] 3.4 g/dL 3.2-5.0 [facility] Serum or plasma albumin/glob ulin mass ratioOrdered By: Dr. Astudillo on 07-14-2022 Albumin/Globulin [Mass ratio] 0.9 {ratio} 0.9-2.4 [facility] Serum or plasma calcium josué urement (mass/volume)Ordered By: Dr. Astudillo on 07-14-2022 Calcium [Mass/Vol] 9.3 mg/dL 8.5-10.1 [facility] Serum or plasma cholesterol in HDL measurement (mass/volume)Ordered By: Dr. Moe on 07-14-2022 Cholesterol in HDL [Mass/Vol] 55 mg/dL >40 [facility] Comment on above: The drugs N-Acetylcy steine and Metamizole may falsely depress this assay. Reference Range HDL <40 mg/dL Low HDL Cholesterol HDL >or= 60 mg/dL High HDL Cholesterol Serum or plasma cholesterol in VLDL measurement (mass/volume)Ordered By: Dr. Moe on 07-14-2022 Cholesterol in VLDL [Mass/Vol] 17 mg/dL 5-40 [facility] Serum or plasma creatinine m easurement (mass/volume)Ordered By: Dr. Astudillo on 07-14-2022 Creatinine [Mass/Vol] 0.94 mg/dL 0.55-1.02 [facility] Comment on above: The validity of the calculated GFR & GFRAA in patients over 70 years has not been determined. Clinical correlation is essential. Serum or plasma low density lipoprotein (LDL) cholesterol measurement (mass/volume)Ordered By: Dr. Moe on 07-14-2022 Cholesterol in LDL [Mass/Vol] 84 mg/dL 0-130 [facility] [facility] Serum or plasma urea nitroge n measurement (mass/volume)Ordered By: Dr. Astudillo on 07-14-2022 Urea nitrogen [Mass/Vol] 18 mg/dL 7-18 [facility] Thin prep Papanicolaou smear with manual screeningOrdered By: Dr. Astudillo on 07-14-2022 Thin prep Papanicolaou smear with manual screening 20 U/L 15-37 [facility] Thin prep Papanicolaou smear with manual screening 3 5-15 [facility] Whole blood hemoglobin A1c/t otal hemoglobin ratio (mass fraction)Ordered By: Dr. Astudillo on 07-14-2022 HbA1c (Bld) [Mass fraction] 5.9 % 3.8-5.6 [facility] Comment on above: Normal < 5.7 % Predi abetic 5.7 - 6.4 % Diabetic >or= 6.5 % Please note range changes. Culture, urineOrdered By: Dr Garo Astudillo on 05-26-2022 Bacteria identified Cx Nom (U) Positive [facility] Basophil percentageOrdered B y: Dr. Astudillo on 05-24-2022 Basophil percentage 0-5 SEEN /hpf 0-5 [facility] Bilirubin Test strip Ql (U)O rdered By: Dr. Astudillo on 05-24-2022 Bilirubin Ql (U) Negative Negative [facility] Ketones Test strip Ql (U)Ord ered By: Dr. Astudillo on 05-24-2022 Ketones Ql (U) Negative Negative [facility] Mucus LM Ql (Urine sed)Order ed By: Dr. Astudillo on 05-24-2022 Mucus Ql (Urine sed) 0 SEEN /hpf [facility] Nitrite Test strip Ql (U)Ord ered By: Dr. Astudillo on 05-24-2022 Nitrite Ql (U) Negative Negative [facility] Protein Test strip Ql (U)Ord ered By: Dr. Astudillo on 05-24-2022 Protein Ql (U) Negative Negative [facility] Squamous epithelial cells de tection in urine sediment by light microscopyOrdered By: Dr. Astudillo on 05-24-2022 Epithelial cells.squamous LM Ql (Urine sed) 0 SEEN /hpf 5-10 [facility] Urine blood detectionOrdered By: Dr. Astudillo on 05-24-2022 RBC Ql (U) Negative Negative [facility] RBC Ql (U) 0-5 SEEN /hpf 0-5 [facility] Urine clarityOrdered By: Dr. Astudillo on 05-24-2022 Clarity (U) Clear Clear [facility] Urine color determinationOrd ered By: Dr. Astudillo on 05-24-2022 Color (U) Yellow Yellow [facility] Urine glucose detectionOrder ed By: Dr. Astudillo on 05-24-2022 Glucose Ql (U) Normal mg/dl Normal [facility] Urine leukocyte esterase det ection by dipstickOrdered By: Dr. Astudillo on 05-24-2022 Leukocyte esterase Test strip Ql (U) 25 /ul Negative [facility] Urine pHOrdered By: Dr. Clayton hner on 05-24-2022 pH (U) 5.0 [pH] 5.0 - 8.0 [facility] Urine sediment bacteria coun t by microscopy (number/high power field)Ordered By: Dr. Astudillo on 05-24-2022 Bacteria LM.HPF (Urine sed) [#/Area] RARE /hpf None Seen [facility] Urine specific gravity measu rementOrdered By: Dr. Astudillo on 05-24-2022 Specific gravity (U) [Rel density] 1.020 1.002-1.030 [facility] Urobilinogen Auto test strip Ql (U)Ordered By: Dr. Astudillo on 05-24-2022 Urobilinogen Ql (U) Normal mg/dl Normal [facility] Absolute lymphocyte counton 01-13-2022 Lymphocytes Auto (Unsp spec) [#/Vol] 1.13 10*3/uL 0.83-4.51 [facility] Work Phone: Basophil percentageon 2021 Basophils/100 WBC (Bld) 0.9 % 0-1 [facility] Work Phone: Bilirubin [Mass/Vol] 0.70 mg/dL 0.20-1.00 [facility] Work Phone: Comment on above: For patients on eltr ombopag therapy, use of Dimension [place] TBIL is not recommended. Chloride [Moles/Vol] 105 mmol/L 98-107 [facility] Work Phone: Cholesterol [Mass/Vol] 152 mg/dL <200 [facility] Work Phone: Comment on above: <200 mg/dL Desirable 200-240 mg/dL Borderline >240 mg/dL High Risk Eosinophils/100 WBC (Bld) 1.1 % 0-5 [facility] Work Phone: Glucose [Mass/Vol] 126 mg/dL 74-106 [facility] Work Phone: Comment on above: Fasting Glucose resu lt greater than or equal to 126 mg/dL suggests DIABETES MELLITUS per A.D.A. criteria. Neutrophils (Bld) [#/Vol] 9.2 10*3/uL 2.0-7.7 [facility] Work Phone: Neutrophils/100 WBC (Bld) 80.6 % 47-70 [facility] Work Phone: Potassium [Moles/Vol] 3.9 mmol/L 3.5-5.1 [facility] Work Phone: Protein [Mass/Vol] 6.9 g/dL 6.4-8.2 [facility] Work Phone: Sodium [Moles/Vol] 138 mmol/L 136-145 [facility] Work Phone: Triglyceride [Mass/Vol] 98 mg/dL <199 [facility] Work Phone: Comment on above: The drugs N-Acetylcy steine and Metamizole may falsely depress this assay.Serum Triglycerides Reference Interval Normal <150 mg/dL Borderline high 150 - 199 mg/dL High 200 - 499 mg/dL Very High > or = 500 mg/dL WBC (Bld) [#/Vol] 11.4 10*3/uL 4.4-11.0 [facility] Work Phone: Blood erythrocytes count (nu mber/volume)on 01-13-2022 RBC (Bld) [#/Vol] 4.50 10*6/uL 4.2-5.4 [facility] Work Phone: Blood hemoglobin measurement (mass/volume)on 01-13-2022 Hemoglobin (Bld) [Mass/Vol] 13.0 g/dL 12.0-15.0 [facility] Work Phone: Blood lymphocytes/100 leukoc yteson 01-13-2022 Lymphocytes/100 WBC (Bld) 9.9 % 19-41 [facility] Work Phone: Blood monocytes/100 leukocyt eson 01-13-2022 Monocytes/100 WBC (Bld) 7.1 % 0-10 [facility] Work Phone: [phone] Blood platelet mean volumeon 01-13-2022 Platelet mean volume (Bld) [Entitic vol] 10.6 fL 6.2-12.0 [facility] Work Phone: [phone] Determination of erythrocyte mean corpuscular volume (MCV)on 01-13-2022 MCV (RBC) [Entitic vol] 88.9 fL 81-99 [facility] Work Phone: [phone] Direct bilirubinon Bilirubin.direct [Mass/Vol] 0.17 mg/dL 0.00-0.30 [facility] Work Phone: [phone] Hematocrit Auto (Bld) [Volum e fraction]on 01-13-2022 Hematocrit (Bld) [Volume fraction] 40.0 % 37-47 [facility] Work Phone: [phone] Laboratory - Chemistry and C hemistry - challengeon 01-13-2022 ALP [Catalytic activity/Vol] 72 U/L 45-117 [facility] Work Phone: [phone] ALT [Catalytic activity/Vol] 27 U/L 13-56 [facility] Work Phone: [phone] CO2 [Moles/Vol] 29.0 mmol/L 21.0-32.0 [facility] Work Phone: [phone] Globulin (S) [Mass/Vol] 3.6 g/dL 2.2-4.2 [facility] Work Phone: [phone] Urea nitrogen/Creatinine [Mass ratio] 25.1 mg/mg 10-20 [facility] Work Phone: [phone] Laboratory - Hematology and Cell countson 01-13-2022 Erythrocyte distribution width (RBC) [Entitic vol] 40.6 fL 35.1-43.9 [facility] Work Phone: [phone] Erythrocyte distribution width (RBC) [Ratio] 12.4 % 11.6-14.6 [facility] Work Phone: [phone] Immature granulocytes/100 WBC (Bld) 0.400 % 0.0-0.9 [facility] Work Phone: [phone] Comment on above: IG% - Immature Granu locytes (promyelocytes, myelocytes and metamyelocytes) > 1% indicates that a LEFT SHIFT is Present. MCH (RBC) [Entitic mass] 28.9 pg 27.0-32.0 [facility] Work Phone: [phone] Nucleated RBC/100 WBC (Bld) [Ratio] 0 % 0-5 [facility] Work Phone: [phone] MCHC Auto (RBC) [Mass/Vol]on 01-13-2022 MCHC (RBC) [Mass/Vol] 32.5 g/dL 32-36 [facility] Work Phone: [phone] Panel Informationon 01-13 Estimated GFR (MDRD) Amer 76 mL/min >60 [facility] Work Phone: [phone] Comment on above: GFR Calc Estimated GFR (MDRD) Non-Af Amer 63 mL/min >60 [facility] Work Phone: [phone] Comment on above: Non- GFR Calc Platelets bldon 01-13-2022 Platelets (Bld) [#/Vol] 353 10*3/uL 150-450 [facility] Work Phone: [phone] Serum or plasma albumin josué urement (mass/volume)on 01-13-2022 Albumin [Mass/Vol] 3.3 g/dL 3.2-5.0 [facility] Work Phone: [phone] Serum or plasma albumin/glob ulin mass ratioon 01-13-2022 Albumin/Globulin [Mass ratio] 0.9 {ratio} 0.9-2.4 [facility] Work Phone: [phone] Serum or plasma calcium josué urement (mass/volume)on 01-13-2022 Calcium [Mass/Vol] 8.7 mg/dL 8.5-10.1 [facility] Work Phone: [phone] Serum or plasma cholesterol in HDL measurement (mass/volume)on 01-13-2022 Cholesterol in HDL [Mass/Vol] 48 mg/dL >40 [facility] Work Phone: [phone] Comment on above: The drugs N-Acetylcy steine and Metamizole may falsely depress this assay. Reference Range HDL <40 mg/dL Low HDL Cholesterol HDL >or= 60 mg/dL High HDL Cholesterol Serum or plasma cholesterol in VLDL measurement (mass/volume)on 01-13-2022 Cholesterol in VLDL [Mass/Vol] 20 mg/dL 5-40 [facility] Work Phone: [phone] Serum or plasma creatinine m easurement (mass/volume)on 01-13-2022 Creatinine [Mass/Vol] 0.92 mg/dL 0.55-1.02 [facility] Work Phone: [phone] Comment on above: The validity of the calculated GFR & GFRAA in patients over 70 years has not been determined. Clinical correlation is essential. Serum or plasma low density lipoprotein (LDL) cholesterol measurement (mass/volume)on 01-13-2022 Cholesterol in LDL [Mass/Vol] 84 mg/dL 0-130 [facility] Work Phone: [phone] Serum or plasma urea nitroge n measurement (mass/volume)on 01-13-2022 Urea nitrogen [Mass/Vol] 23 mg/dL 7-18 [facility] Work Phone: [phone] Thin prep Papanicolaou smear with manual screeningon 01-13-2022 Thin prep Papanicolaou smear with manual screening 20 U/L 15-37 [facility] Work Phone: [phone] Thin prep Papanicolaou smear with manual screening 4 5-15 [facility] Work Phone: [phone] Basophil percentageon 2021 Basophil percentage 25-50 SEEN /hpf [facility] Work Phone: [phone] Bilirubin Test strip Ql (U)o n 09-11-2021 Bilirubin Ql (U) Negative Negative [facility] Work Phone: [phone] Culture, urineon 09-11-2021 Bacteria identified Cx Nom (U) Positive [facility] Work Phone: [phone] Ketones Test strip Ql (U)on 09-11-2021 Ketones Ql (U) Negative Negative [facility] Work Phone: [phone] Mucus LM Ql (Urine sed)on Mucus Ql (Urine sed) 0 SEEN /hpf [facility] Work Phone: Nitrite Test strip Ql (U)on 09-11-2021 Nitrite Ql (U) Negative Negative [facility] Work Phone: Protein Test strip Ql (U)on 09-11-2021 Protein Ql (U) 15 mg/dl Negative [facility] Work Phone: [phone] Squamous epithelial cells de tection in urine sediment by light microscopyon 09-11-2021 Epithelial cells.squamous LM Ql (Urine sed) 0-5 SEEN /hpf [facility] Work Phone: Urine blood detectionon RBC Ql (U) 25 /ul Negative [facility] Work Phone: RBC Ql (U) 0-5 SEEN /hpf [facility] Work Phone: Urine clarityon 09-11-2021 Clarity (U) Clear Clear [facility] Work Phone: Urine color determinationon 09-11-2021 Color (U) Yellow Yellow [facility] Work Phone: Urine glucose detectionon Glucose Ql (U) Normal mg/dl Normal [facility] Work Phone: Urine leukocyte esterase det ection by dipstickon 09-11-2021 Leukocyte esterase Test strip Ql (U) 500 /ul Negative [facility] Work Phone: Urine pHon 09-11-2021 pH (U) 6.0 [pH] [facility] Work Phone: [phone] Urine sediment bacteria coun t by microscopy (number/high power field)on 09-11-2021 Bacteria LM.HPF (Urine sed) [#/Area] 1 /[HPF] None Seen [facility] Work Phone: Urine specific gravity measu rementon 09-11-2021 Specific gravity (U) [Rel density] 1.010 [facility] Work Phone: [phone] Urobilinogen Auto test strip Ql (U)on 09-11-2021 Urobilinogen Ql (U) Normal mg/dl Normal [facility] Work Phone: Absolute lymphocyte counton 08-27-2021 Lymphocytes Auto (Unsp spec) [#/Vol] 0.94 10*3/uL 0.83-4.51 [facility] Work Phone: Basophil percentageon 2021 Basophil percentage 25-50 SEEN /hpf [facility] Work Phone: Basophils/100 WBC (Bld) 0.8 % 0-1 [facility] Work Phone: Chloride [Moles/Vol] 104 mmol/L 98-107 [facility] Work Phone: Eosinophils/100 WBC (Bld) 0.7 % 0-5 [facility] Work Phone: Glucose [Mass/Vol] 109 mg/dL 74-106 [facility] Work Phone: Comment on above: Fasting Glucose resu lt from 100 to 125 mg/dL suggests IMPAIRED HOMEOSTASIS per A.D.A. criteria. Neutrophils (Bld) [#/Vol] 9.8 10*3/uL 2.0-7.7 [facility] Work Phone: Neutrophils/100 WBC (Bld) 83.4 % 47-70 [facility] Work Phone: Potassium [Moles/Vol] 4.5 mmol/L 3.5-5.1 [facility] Work Phone: Sodium [Moles/Vol] 138 mmol/L 136-145 [facility] Work Phone: WBC (Bld) [#/Vol] 11.7 10*3/uL 4.4-11.0 [facility] Work Phone: Bilirubin Test strip Ql (U)o n 08-27-2021 Bilirubin Ql (U) Negative Negative [facility] Work Phone: Blood erythrocytes count (nu mber/volume)on 08-27-2021 RBC (Bld) [#/Vol] 4.40 10*6/uL 4.2-5.4 [facility] Work Phone: Blood hemoglobin measurement (mass/volume)on 08-27-2021 Hemoglobin (Bld) [Mass/Vol] 13.0 g/dL 12.0-15.0 [facility] Work Phone: Blood lymphocytes/100 leukoc yteson 08-27-2021 Lymphocytes/100 WBC (Bld) 8.0 % 19-41 [facility] Work Phone: Blood monocytes/100 leukocyt eson 08-27-2021 Monocytes/100 WBC (Bld) 6.2 % 0-10 [facility] Work Phone: Blood platelet mean volumeon 08-27-2021 Platelet mean volume (Bld) [Entitic vol] 11.2 fL 6.2-12.0 [facility] Work Phone: Determination of erythrocyte mean corpuscular volume (MCV)on 08-27-2021 MCV (RBC) [Entitic vol] 92.3 fL 81-99 [facility] Work Phone: Hematocrit Auto (Bld) [Volum e fraction]on 08-27-2021 Hematocrit (Bld) [Volume fraction] 40.6 % 37-47 [facility] Work Phone: Ketones Test strip Ql (U)on 08-27-2021 Ketones Ql (U) Negative Negative [facility] Work Phone: Laboratory - Chemistry and C hemistry - challengeon 08-27-2021 CO2 [Moles/Vol] 30.0 mmol/L 21.0-32.0 [facility] Work Phone: Urea nitrogen/Creatinine [Mass ratio] 22.8 mg/mg 10-20 [facility] Work Phone: [phone] Laboratory - Hematology and Cell countson 08-27-2021 Erythrocyte distribution width (RBC) [Entitic vol] 42.3 fL 35.1-43.9 [facility] Work Phone: [phone] Erythrocyte distribution width (RBC) [Ratio] 12.5 % 11.6-14.6 [facility] Work Phone: [phone] Immature granulocytes/100 WBC (Bld) 0.900 % 0.0-0.9 [facility] Work Phone: [phone] Comment on above: IG% - Immature Granu locytes (promyelocytes, myelocytes and metamyelocytes) > 1% indicates that a LEFT SHIFT is Present. MCH (RBC) [Entitic mass] 29.5 pg 27.0-32.0 [facility] Work Phone: [phone] Nucleated RBC/100 WBC (Bld) [Ratio] 0 % 0-5 [facility] Work Phone: [phone] MCHC Auto (RBC) [Mass/Vol]on 08-27-2021 MCHC (RBC) [Mass/Vol] 32.0 g/dL 32-36 [facility] Work Phone: [phone] Mucus LM Ql (Urine sed)on Mucus Ql (Urine sed) 0 SEEN /hpf [facility] Work Phone: [phone] Nitrite Test strip Ql (U)on 08-27-2021 Nitrite Ql (U) Negative Negative [facility] Work Phone: No Panel Informationon 08-27 Estimated GFR (MDRD) Amer 90 mL/min >60 [facility] Work Phone: [phone] Comment on above: GFR Calc Estimated GFR (MDRD) Non-Af Amer 75 mL/min >60 [facility] Work Phone: [phone] Comment on above: Non- GFR Calc Platelets bldon 08-27-2021 Platelets (Bld) [#/Vol] 362 10*3/uL 150-450 [facility] Work Phone: [phone] Protein Test strip Ql (U)on 08-27-2021 Protein Ql (U) 15 mg/dl Negative [facility] Work Phone: [phone] Serum or plasma calcium josué urement (mass/volume)on 08-27-2021 Calcium [Mass/Vol] 9.5 mg/dL 8.5-10.1 [facility] Work Phone: Serum or plasma creatinine m easurement (mass/volume)on 08-27-2021 Creatinine [Mass/Vol] 0.79 mg/dL 0.55-1.02 [facility] Work Phone: Comment on above: The validity of the calculated GFR & GFRAA in patients over 70 years has not been determined. Clinical correlation is essential. Serum or plasma urea nitroge n measurement (mass/volume)on 08-27-2021 Urea nitrogen [Mass/Vol] 18 mg/dL 7-18 [facility] Work Phone: Squamous epithelial cells de tection in urine sediment by light microscopyon 08-27-2021 Epithelial cells.squamous LM Ql (Urine sed) 0-5 SEEN /hpf [facility] Work Phone: Thin prep Papanicolaou smear with manual screeningon 08-27-2021 Thin prep Papanicolaou smear with manual screening 4 5-15 [facility] Work Phone: Urine blood detectionon 08-11 RBC Ql (U) 150 /ul Negative [facility] Work Phone: RBC Ql (U) 10-25 SEEN /hpf [facility] Work Phone: Urine clarityon 08-27-2021 Clarity (U) Sl. Cloudy Clear [facility] Work Phone: Urine color determinationon 08-27-2021 Color (U) Yellow Yellow [facility] Work Phone: Urine glucose detectionon Glucose Ql (U) Normal mg/dl Normal [facility] Work Phone: Urine leukocyte esterase det ection by dipstickon 08-27-2021 Leukocyte esterase Test strip Ql (U) 500 /ul Negative [facility] Work Phone: Urine pHon 08-27-2021 pH (U) 6.0 [pH] [facility] Work Phone: Urine sediment bacteria coun t by microscopy (number/high power field)on 08-27-2021 Bacteria LM.HPF (Urine sed) [#/Area] 0 /[HPF] None Seen [facility] Work Phone: [phone] Urine specific gravity measu rementon 08-27-2021 Specific gravity (U) [Rel density] 1.010 [facility] Work Phone: [phone] Urobilinogen Auto test strip Ql (U)on 08-27-2021 Urobilinogen Ql (U) Normal mg/dl Normal [facility] Work Phone: [phone] Whole blood hemoglobin A1c/t otal hemoglobin ratio (mass fraction)on 08-27-2021 HbA1c (Bld) [Mass fraction] 5.8 % 3.8-5.6 [facility] Work Phone: [phone] Comment on above: Normal < 5.7 % Predi abetic 5.7 - 6.4 % Diabetic >or= 6.5 % Please note range changes. Basophil percentageon 2021 WBC (Bld) [#/Vol] 21.9 10*3/uL 4.4-11.0 [facility] Work Phone: [phone] Blood erythrocytes count (nu mber/volume)on 07-31-2021 RBC (Bld) [#/Vol] 3.61 10*6/uL 4.2-5.4 [facility] Work Phone: [phone] Blood hemoglobin measurement (mass/volume)on 07-31-2021 Hemoglobin (Bld) [Mass/Vol] 10.5 g/dL 12.0-15.0 [facility] Work Phone: [phone] Blood platelet mean volumeon 07-31-2021 Platelet mean volume (Bld) [Entitic vol] 10.4 fL 6.2-12.0 [facility] Work Phone: [phone] Determination of erythrocyte mean corpuscular volume (MCV)on 07-31-2021 MCV (RBC) [Entitic vol] 87.5 fL 81-99 [facility] Work Phone: [phone] Hematocrit Auto (Bld) [Volum e fraction]on 07-31-2021 Hematocrit (Bld) [Volume fraction] 31.6 % 37-47 [facility] Work Phone: Laboratory - Hematology and Cell countson 07-31-2021 Erythrocyte distribution width (RBC) [Entitic vol] 39.5 fL 35.1-43.9 [facility] Work Phone: Erythrocyte distribution width (RBC) [Ratio] 12.2 % 11.6-14.6 [facility] Work Phone: MCH (RBC) [Entitic mass] 29.1 pg 27.0-32.0 [facility] Work Phone: MCHC Auto (RBC) [Mass/Vol]on 07-31-2021 MCHC (RBC) [Mass/Vol] 33.2 g/dL 32-36 [facility] Work Phone: Platelets bldon 07-31-2021 Platelets (Bld) [#/Vol] 262 10*3/uL 150-450 [facility] Work Phone: Glucose Glucometer (BldC) [M ass/Vol]on 07-30-2021 Glucose [Mass/Vol] 120 mg/dL 70-110 [facility] Work Phone: Comment on above: MANAGEMENT OF PATIEN T CARE PER NURSING PROTOCOL Laboratory - Chemistry and C hemistry - challengeon 07-23-2021 Magnesium [Mass/Vol] 2.1 mg/dL [facility] Work Phone: Comment on above: Performed at: - [address] [id number] Director: Clarke Winter PhD, Phone: [phone] Absolute lymphocyte counton 07-22-2021 Lymphocytes Auto (Unsp spec) [#/Vol] 1.17 10*3/uL 0.83-4.51 [facility] Work Phone: Activated partial thrombopla stin time (aPTT) in platelet poor plasma by coagulation aon 07-22-2021 aPTT Coag (PPP) [Time] 27.6 s 24.1-36.2 [facility] Work Phone: Basophil percentageon 2021 Basophils/100 WBC (Bld) 0.9 % 0-1 [facility] Work Phone: Bilirubin [Mass/Vol] 0.70 mg/dL 0.20-1.00 [facility] Work Phone: Comment on above: For patients on eltr ombopag therapy, use of Dimension [place] TBIL is not recommended. Chloride [Moles/Vol] 104 mmol/L 98-107 [facility] Work Phone: Eosinophils/100 WBC (Bld) 1.1 % 0-5 [facility] Work Phone: Glucose [Mass/Vol] 120 mg/dL 74-106 [facility] Work Phone: Comment on above: Fasting Glucose resu lt from 100 to 125 mg/dL suggests IMPAIRED HOMEOSTASIS per A.D.A. criteria. Neutrophils (Bld) [#/Vol] 7.2 10*3/uL 2.0-7.7 [facility] Work Phone: Neutrophils/100 WBC (Bld) 78.3 % 47-70 [facility] Work Phone: Potassium [Moles/Vol] 4.5 mmol/L 3.5-5.1 [facility] Work Phone: Protein [Mass/Vol] 7.3 g/dL 6.4-8.2 [facility] Work Phone: Sodium [Moles/Vol] 138 mmol/L 136-145 [facility] Work Phone: WBC (Bld) [#/Vol] 9.2 10*3/uL 4.4-11.0 [facility] Work Phone: Blood erythrocytes count (nu mber/volume)on 07-22-2021 RBC (Bld) [#/Vol] 4.83 10*6/uL 4.2[facility]5.[facility]: Blood hemoglobin measurement (mass/volume)on 07-22-2021 Hemoglobin (Bld) [Mass/Vol] 13.7 g/dL 12.0-15.0 [facility] Work Phone: Blood lymphocytes/100 leukoc yteson 07-22-2021 Lymphocytes/100 WBC (Bld) 12.7 % 19-41 [facility] Work Phone: Blood monocytes/100 leukocyt eson 07-22-2021 Monocytes/100 WBC (Bld) 6.6 % 0-10 [facility] Work Phone: Blood platelet mean volumeon 07-22-2021 Platelet mean volume (Bld) [Entitic vol] 10.4 fL 6.2-12.0 [facility] Work Phone: Determination of erythrocyte mean corpuscular volume (MCV)on 07-22-2021 MCV (RBC) [Entitic vol] 88.6 fL 81-99 [facility] Work Phone: Hematocrit Auto (Bld) [Volum e fraction]on 07-22-2021 Hematocrit (Bld) [Volume fraction] 42.8 % 37-47 [facility] Work Phone: INR in Blood by Coagulation assayon 07-22-2021 INR Coag (Bld) [Relative time] 1.0 {INR} [facility] Work Phone: Laboratory - Chemistry and C hemistry - challengeon 07-22-2021 ALP [Catalytic activity/Vol] 82 U/L 45-117 [facility] Work Phone: ALT [Catalytic activity/Vol] 35 U/L 13-56 [facility] Work Phone: CO2 [Moles/Vol] 32.0 mmol/L 21.0-32.0 [facility] Work Phone: Globulin (S) [Mass/Vol] 3.9 g/dL 2.2-4.2 [facility] Work Phone: Urea nitrogen/Creatinine [Mass ratio] 22.0 mg/mg 10-20 [facility] Work Phone: [phone] Laboratory - Coagulationon 0 07-22-2021 PT Coag (PPP) [Time] 12.9 s 11.7-14.9 [facility] Work Phone: [phone] Laboratory - Hematology and Cell countson 07-22-2021 Erythrocyte distribution width (RBC) [Entitic vol] 40.3 fL 35.1-43.9 [facility] Work Phone: [phone] Erythrocyte distribution width (RBC) [Ratio] 12.3 % 11.6-14.6 [facility] Work Phone: [phone] Immature granulocytes/100 WBC (Bld) 0.400 % 0.0-0.9 [facility] Work Phone: [phone] Comment on above: IG% - Immature Granu locytes (promyelocytes, myelocytes and metamyelocytes) > 1% indicates that a LEFT SHIFT is Present. MCH (RBC) [Entitic mass] 28.4 pg 27.0-32.0 [facility] Work Phone: [phone] Nucleated RBC/100 WBC (Bld) [Ratio] 0 % 0-5 [facility] Work Phone: [phone] MCHC Auto (RBC) [Mass/Vol]on 07-22-2021 MCHC (RBC) [Mass/Vol] 32.0 g/dL 32-36 [facility] Work Phone: [phone] Panel Informationon 07-22 Estimated GFR (MDRD) Amer 82 mL/min >60 [facility] Work Phone: [phone] Comment on above: GFR Calc Estimated GFR (MDRD) Non-Af Amer 68 mL/min >60 [facility] Work Phone: [phone] Comment on above: Non- GFR Calc Platelets bldon 07-22-2021 Platelets (Bld) [#/Vol] 384 10*3/uL 150-450 [facility] Work Phone: [phone] Serum or plasma albumin josué urement (mass/volume)on 07-22-2021 Albumin [Mass/Vol] 3.4 g/dL 3.2-5.0 [facility] Work Phone: Serum or plasma albumin/glob ulin mass ratioon 07-22-2021 Albumin/Globulin [Mass ratio] 0.9 {ratio} 0.9-2.4 [facility] Work Phone: Serum or plasma calcium josué urement (mass/volume)on 07-22-2021 Calcium [Mass/Vol] 9.4 mg/dL 8.5-10.1 [facility] Work Phone: Serum or plasma creatinine m easurement (mass/volume)on 07-22-2021 Creatinine [Mass/Vol] 0.86 mg/dL 0.55-1.02 [facility] Work Phone: Comment on above: The validity of the calculated GFR & GFRAA in patients over 70 years has not been determined. Clinical correlation is essential. Serum or plasma urea nitroge n measurement (mass/volume)on 07-22-2021 Urea nitrogen [Mass/Vol] 19 mg/dL 7-18 [facility] Work Phone: Thin prep Papanicolaou smear with manual screeningon 07-22-2021 Thin prep Papanicolaou smear with manual screening 17 U/L 15-37 [facility] Work Phone: Thin prep Papanicolaou smear with manual screening 2 5-15 [facility] Work Phone: Basophil percentageon 2021 Bilirubin [Mass/Vol] 0.60 mg/dL 0.20-1.00 [facility] Work Phone: Comment on above: For patients on eltr ombopag therapy, use of Dimension [place] TBIL is not recommended. Cholesterol [Mass/Vol] 165 mg/dL <200 [facility] Work Phone: Comment on above: <200 mg/dL Desirable 200-240 mg/dL Borderline >240 mg/dL High Risk Protein [Mass/Vol] 6.9 g/dL 6.4-8.2 [facility] Work Phone: [phone] Triglyceride [Mass/Vol] 107 mg/dL [facility] Work Phone: Comment on above: The drugs N-Acetylcy steine and Metamizole may falsely depress this assay.Serum Triglycerides Reference Interval Normal <150 mg/dL Borderline high 150 - 199 mg/dL High 200 - 499 mg/dL Very High > or = 500 mg/dL Direct bilirubinon Bilirubin.direct [Mass/Vol] 0.14 mg/dL 0.00-0.30 [facility] Work Phone: [phone] Laboratory - Chemistry and C hemistry - challengeon 07-08-2021 ALP [Catalytic activity/Vol] 78 U/L 45-117 [facility] Work Phone: [phone] ALT [Catalytic activity/Vol] 30 U/L 13-56 [facility] Work Phone: [phone] Globulin (S) [Mass/Vol] 3.6 g/dL 2.2-4.2 [facility] Work Phone: [phone] Magnesium [Mass/Vol] 2.3 mg/dL 1.6-2.6 [facility] Work Phone: [phone] Serum or plasma albumin josué urement (mass/volume)on 07-08-2021 Albumin [Mass/Vol] 3.3 g/dL 3.2-5.0 [facility] Work Phone: [phone] Serum or plasma cholesterol in HDL measurement (mass/volume)on 07-08-2021 Cholesterol in HDL [Mass/Vol] 51 mg/dL [facility] Work Phone: [phone] Comment on above: The drugs N-Acetylcy steine and Metamizole may falsely depress this assay. Reference Range HDL <40 mg/dL Low HDL Cholesterol HDL >or= 60 mg/dL High HDL Cholesterol Serum or plasma cholesterol in VLDL measurement (mass/volume)on 07-08-2021 Cholesterol in VLDL [Mass/Vol] 21 mg/dL 5-40 [facility] Work Phone: [phone] Serum or plasma low density lipoprotein (LDL) cholesterol measurement (mass/volume)on 07-08-2021 Cholesterol in LDL [Mass/Vol] 93 mg/dL 0-130 [facility] Work Phone: Thin prep Papanicolaou smear with manual screeningon 07-08-2021 Thin prep Papanicolaou smear with manual screening 17 U/L 15-37 [facility] Work Phone: Vital Signs Date Time Vital Sign Value Performing Clinician Kaylai [email or web address] 02-04-2025 07:55-0400 Body height 157.[address] Cristal Astudillo MD Work Phone: [facility] 02-04-2025 07:55-0400 Body mass index (BMI) [Ratio] 22.1 kg/m2 Dr. Cristal Astudillo MD Work Phone: [facility] 02-04-2025 07:55-0400 Body temperature 97.8 [degF] Dr. Cristal Astudillo MD Work Phone: [facility] 02-04-2025 07:55-0400 Body weight 54.[address] Cristal Astudillo MD Work Phone: [facility] 02-04-2025 07:55-0400 Diastolic blood pressure 72 mm[Hg] Dr. Cristal Astudillo MD Work Phone: [facility] 02-04-2025 07:55-0400 Heart rate 70 /min Dr. Cristal Astudillo MD Work Phone: [facility] 02-04-2025 07:55-0400 Respiratory rate 16 /min Dr. Cristal Astudillo MD Work Phone: [facility] 02-04-2025 07:55-0400 SaO2% (BldA) [Mass fraction] 95 % Dr. Cristal Astudillo MD Work Phone: [facility] 02-04-2025 07:55-0400 Systolic blood pressure 116 mm[Hg] Dr. Cristal Astudillo MD Work Phone: [facility] 10-08-2024 13:30-0400 Body temperature 97.8 [degF] Dr. Cristal Astudillo MD Work Phone: [facility] 10-08-2024 13:30-0400 Diastolic blood pressure 66 mm[Hg] Dr. Cristal Astudillo MD Work Phone: [facility] 10-08-2024 13:30-0400 Heart rate 77 /min Dr. Cristal Astudillo MD Work Phone: [facility] 10-08-2024 13:30-0400 SaO2% (BldA) [Mass fraction] 98 % Dr. Cristal Astudillo MD Work Phone: [facility] 10-08-2024 13:30-0400 Systolic blood pressure 124 mm[Hg] Dr. Cristal Astudillo MD Work Phone: [facility] 09-06-2024 09:32-0400 Body height 157.[address] Cristal Astudillo MD Work Phone: [facility] 09-06-2024 09:32-0400 Body mass index (BMI) [Ratio] 21.9 kg/m2 Dr. Cristal Astudillo MD Work Phone: [facility] 09-06-2024 09:32-0400 Body weight 54.[address] Cristal Astudillo MD Work Phone: [facility] 09-06-2024 09:32-0400 Diastolic blood pressure 66 mm[Hg] Dr. Cristal Astudillo MD Work Phone: [facility] 09-06-2024 09:32-0400 Heart rate 65 /min Dr. Cristal Astudillo MD Work Phone: [facility] 09-06-2024 09:32-0400 Respiratory rate 16 /min Dr. Cristal Astudillo MD Work Phone: [facility] 09-06-2024 09:32-0400 Systolic blood pressure 117 mm[Hg] Dr. Cristal Astudillo MD Work Phone: [facility] 08-23-2024 08:04-0400 Body height 157.[address] Cristal Astudillo MD Work Phone: [facility] 08-23-2024 08:04-0400 Body mass index (BMI) [Ratio] 22.1 kg/m2 Dr. Cristal Astudillo MD Work Phone: [facility] 08-23-2024 08:04-0400 Body temperature 98 [degF] Dr. Cristal Astudillo MD Work Phone: [facility] 08-23-2024 08:04-0400 Body weight 54.[address] Cristal Astudillo MD Work Phone: [facility] 08-23-2024 08:04-0400 Diastolic blood pressure 70 mm[Hg] Dr. Cristal Astudillo MD Work Phone: [facility] 08-23-2024 08:04-0400 Heart rate 73 /min Dr. Cristal Astudillo MD Work Phone: [facility] 08-23-2024 08:04-0400 Respiratory rate 16 /min Dr. Cristal Astudillo MD Work Phone: [facility] 08-23-2024 08:04-0400 SaO2% (BldA) [Mass fraction] 98 % Dr. Cristal Astudillo MD Work Phone: [facility] 08-23-2024 08:04-0400 Systolic blood pressure 119 mm[Hg] Dr. Cristal Astudillo MD Work Phone: [facility] 08-06-2024 07:59-0500 Body mass index (BMI) [Ratio] 22.1 kg/m2 Dr. Cristal Astudillo MD Work Phone: [facility] 08-06-2024 07:59-0500 Body temperature 98 [degF] Dr. Cristal Astudillo MD Work Phone: [facility] 08-06-2024 07:59-0500 Body weight 55.[address] Cristal Astudillo MD Work Phone: [facility] 08-06-2024 07:59-0500 Diastolic blood pressure 76 mm[Hg] Dr. Cristal Astudillo MD Work Phone: [facility] 08-06-2024 07:59-0500 Heart rate 71 /min Dr. Cristal Astudillo MD Work Phone: [facility] 08-06-2024 07:59-0500 Respiratory rate 16 /min Dr. Cristal Astudillo MD Work Phone: [facility] 08-06-2024 07:59-0500 SaO2% (BldA) [Mass fraction] 98 % Dr. Cristal Astudillo MD Work Phone: [facility] 08-06-2024 07:59-0500 Systolic blood pressure 134 mm[Hg] Dr. Cristal Astudillo MD Work Phone: [facility] 08-03-2023 08:04-0500 Body height 157.[address] Cristal Astudillo Work Phone: [facility] 08-03-2023 08:04-0500 Body mass index (BMI) [Ratio] 21.8 kg/m2 Dr. Cristal Astudillo Work Phone: [facility] 08-03-2023 08:04-0500 Body temperature 97.8 [degF] Dr. Cristal Astudillo Work Phone: [facility] 08-03-2023 08:04-0500 Body weight 54.[address] Cristal Astudillo Work Phone: [facility] 08-03-2023 08:04-0500 Diastolic blood pressure 66 mm[Hg] Dr. Cristal Astudillo Work Phone: [facility] 08-03-2023 08:04-0500 Heart rate 74 /min Dr. Cristal Astudillo Work Phone: [facility] 02-21-2024 08:04-0500 Respiratory rate 16 /min Dr. Cristal Astudillo Work Phone: [facility] 08-03-2023 08:04-0500 SaO2% (BldA) [Mass fraction] 95 % Dr. Cristal Astudillo Work Phone: [facility] 08-03-2023 08:04-0500 Systolic blood pressure 121 mm[Hg] Dr. Cristal Astudillo Work Phone: [facility] 07-21-2023 09:15-0500 Diastolic blood pressure 63 mm[Hg] Dr. Cristal Astudillo Work Phone: [facility] 07-21-2023 09:15-0500 Heart rate 74 /min Dr. Cristal Astudillo Work Phone: [facility] 07-21-2023 09:15-0500 Respiratory rate 16 /min Dr. Cristal Astudillo Work Phone: [facility] 07-21-2023 09:15-0500 Systolic blood pressure 133 mm[Hg] Dr. Cristal Astudillo Work Phone: [facility] 07-21-2023 08:49-0500 Body mass index (BMI) [Ratio] 21.2 kg/m2 Dr. Cristal Astudillo Work Phone: [facility] 07-21-2023 08:49-0500 Body weight 52.[address] Cristal Astudillo Work Phone: [facility] 03-01-2023 09:15-0400 Diastolic blood pressure 51 mm[Hg] Dr. Cristal Astudillo Work Phone: [facility] 03-01-2023 09:15-0400 Heart rate 60 /min Dr. Cristal Astudillo Work Phone: [facility] 03-01-2023 09:15-0400 Respiratory rate 16 /min Dr. Cristal Astudillo Work Phone: [facility] 03-01-2023 09:15-0400 SaO2% (BldA) [Mass fraction] 98 % Dr. Cristal Astudillo Work Phone: [facility] 03-01-2023 09:15-0400 Systolic blood pressure 125 mm[Hg] Dr. Cristal Astudillo Work Phone: [facility] 03-01-2023 09:00-0400 Body temperature 97.5 [degF] Dr. Cristal Astudillo Work Phone: [facility] 03-01-2023 08:01-0400 Body height 157.[address] Cristal Astudillo Work Phone: [facility] 03-01-2023 08:01-0400 Body mass index (BMI) [Ratio] 20.5 kg/m2 Dr. Cristal Astudillo Work Phone: [facility] 03-01-2023 08:01-0400 Body weight [address] Cristal Astudillo Work Phone: [facility] 02-24-2023 07:58-0400 Body mass index (BMI) [Ratio] 21.5 kg/m2 Dr. Cristal Astudillo Work Phone: [facility] 02-24-2023 07:58-0400 Body temperature 96.5 [degF] Dr. Cristal Astudillo Work Phone: [facility] 02-24-2023 07:58-0400 Body weight 53.[address] Cristal Astudillo Work Phone: [facility] 02-24-2023 07:58-0400 Diastolic blood pressure 73 mm[Hg] Dr. Cristal Astudillo Work Phone: [facility] 02-24-2023 07:58-0400 Heart rate 67 /min Dr. Cristal Astudillo Work Phone: [facility] 02-24-2023 07:58-0400 Respiratory rate 17 /min Dr. Cristal Astudillo Work Phone: [facility] 02-24-2023 07:58-0400 SaO2% (BldA) [Mass fraction] 100 % Dr. Cristal Astudillo Work Phone: [facility] 02-24-2023 07:58-0400 Systolic blood pressure 146 mm[Hg] Dr. Cristal Astudillo Work Phone: [facility] 02-17-2023 09:07-0400 Body mass index (BMI) [Ratio] 21.3 kg/m2 Dr. Cristal Astudillo Work Phone: [facility] 02-17-2023 09:07-0400 Body temperature 98.2 [degF] Dr. Cristal Astudillo Work Phone: [facility] 02-17-2023 09:07-0400 Body weight 52.[address] Cristal Astudillo Work Phone: [facility] 02-17-2023 09:07-0400 Diastolic blood pressure 73 mm[Hg] Dr. Cristal Astudillo Work Phone: [facility] 02-17-2023 09:07-0400 Heart rate 79 /min Dr. Cristal Astudillo Work Phone: [facility] 02-17-2023 09:07-0400 Respiratory rate 18 /min Dr. Cristal Astudillo Work Phone: [facility] 02-17-2023 09:07-0400 SaO2% (BldA) [Mass fraction] 96 % Dr. Cristal Astudillo Work Phone: [facility] 02-17-2023 09:07-0400 Systolic blood pressure 116 mm[Hg] Dr. Cristal Astudillo Work Phone: [facility] 01-31-2023 08:04-0400 Body mass index (BMI) [Ratio] 21.4 kg/m2 Dr. Cristal Astudillo Work Phone: [facility] 01-31-2023 08:04-0400 Body temperature 97.9 [degF] Dr. Cristal Astudillo Work Phone: [facility] 01-31-2023 08:04-0400 Body weight 53.[address] Cristal Astudillo Work Phone: [facility] 01-31-2023 08:04-0400 Diastolic blood pressure 76 mm[Hg] Dr. Cristal Astudillo Work Phone: [facility] 01-31-2023 08:04-0400 Heart rate 77 /min Dr. Cristal Astudillo Work Phone: [facility] 01-31-2023 08:04-0400 Respiratory rate 16 /min Dr. Cristal Astudillo Work Phone: [facility] 01-31-2023 08:04-0400 SaO2% (BldA) [Mass fraction] 98 % Dr. Cristal Astudillo Work Phone: [facility] 01-31-2023 08:04-0400 Systolic blood pressure 123 mm[Hg] Dr. Cristal Astudillo Work Phone: [facility] 08-04-2022 07:56-0500 Body temperature 97.6 [degF] Dr. Cristal Astudillo Work Phone: [facility] 08-04-2022 07:56-0500 Body weight 53.[address] Cristal Astudillo Work Phone: [facility] 08-04-2022 07:56-0500 Diastolic blood pressure 74 mm[Hg] Dr. Cristal Astudillo Work Phone: [facility] 08-04-2022 07:56-0500 Heart rate 75 /min Dr. Cristal Astudillo Work Phone: [facility] 08-04-2022 07:56-0500 Respiratory rate 16 /min Dr. Cristal Astudillo Work Phone: [facility] 08-04-2022 07:56-0500 SaO2% (BldA) [Mass fraction] 97 % Dr. Cristal Astudillo Work Phone: [facility] 08-04-2022 07:56-0500 Systolic blood pressure 138 mm[Hg] Dr. Cristal Astudillo Work Phone: [facility] 07-20-2022 10:52-0500 Diastolic blood pressure 73 mm[Hg] Dr. Cristal Astudillo Work Phone: [facility] 07-20-2022 10:52-0500 Heart rate 70 /min Dr. Cristal Astudillo Work Phone: [facility] 07-20-2022 10:52-0500 Systolic blood pressure 143 mm[Hg] Dr. Cristal Astudillo Work Phone: [facility] 07-20-2022 10:37-0500 Body height 157.[address] Cristal Astudillo Work Phone: [facility] 07-20-2022 10:37-0500 Body mass index (BMI) [Ratio] 21.5 kg/m2 Dr. Cristal Astudillo Work Phone: [facility] 07-20-2022 10:37-0500 Body weight 53.[address] Cristal Astudillo Work Phone: [facility] 07-20-2022 10:37-0500 Respiratory rate 16 /min Dr. Cristal Astudillo Work Phone: [facility] 02-03-2022 08:51-0400 Body height 157.[address] Cristal Astudillo Work Phone: [facility] Work Phone: 02-03-2022 08:51-0400 Body mass index (BMI) [Ratio] 21.4 kg/m2 Dr. Cristal Astudillo Work Phone: [facility] Work Phone: 02-03-2022 08:51-0400 Body temperature 97.9 [degF] Dr. Cristal Astudillo Work Phone: [facility] Work Phone: 02-03-2022 08:51-0400 Body weight 53.[address] Cristal Astduillo Work Phone: [facility] Work Phone: 02-03-2022 08:51-0400 Diastolic blood pressure 68 mm[Hg] Dr. Cristal Astudillo Work Phone: [facility] Work Phone: 02-03-2022 08:51-0400 Heart rate 68 /min Dr. Cristal Astudillo Work Phone: [facility] Work Phone: 02-03-2022 08:51-0400 Respiratory rate 16 /min Dr. Cristal Astudillo Work Phone: [facility] Work Phone: 02-03-2022 08:51-0400 SaO2% (BldA) [Mass fraction] 98 % Dr. Cristal Astudillo Work Phone: [facility] Work Phone: 02-03-2022 08:51-0400 Systolic blood pressure 126 mm[Hg] Dr. Cristal Astudillo Work Phone: [facility] Work Phone: 09-11-2021 08:30-0400 Body height 157.[address] Cristal Astudillo Work Phone: [facility] Work Phone: 09-11-2021 08:30-0400 Body mass index (BMI) [Ratio] 21.5 kg/m2 Dr. Cristal Astudillo Work Phone: [facility] Work Phone: 09-11-2021 08:30-0400 Body temperature 97.9 [degF] Dr. Cristal Astudillo Work Phone: [facility] Work Phone: 09-11-2021 08:30-0400 Body weight 53.[address] Cristal Astudillo Work Phone: [facility] Work Phone: 09-11-2021 08:30-0400 Diastolic blood pressure 70 mm[Hg] Dr. Cristal Astudillo Work Phone: [facility] Work Phone: 09-11-2021 08:30-0400 Heart rate 83 /min Dr. Cristal Astudillo Work Phone: [facility] Work Phone: 09-11-2021 08:30-0400 Respiratory rate 14 /min Dr. Cristal Astudillo Work Phone: [facility] Work Phone: 09-11-2021 08:30-0400 SaO2% (BldA) [Mass fraction] 99 % Dr. Cristal Astudillo Work Phone: [facility] Work Phone: 09-11-2021 08:30-0400 Systolic blood pressure 136 mm[Hg] Dr. Cristal Astudillo Work Phone: [facility] Work Phone: 08-27-2021 08:34-0400 Body height 157.[address] Cristal Astudillo Work Phone: [facility] Work Phone: 08-27-2021 08:34-0400 Body mass index (BMI) [Ratio] 21.6 kg/m2 Dr. Cristal Astudillo Work Phone: [facility] Work Phone: 08-27-2021 08:34-0400 Body temperature 96.3 [degF] Dr. Crsital Astudillo Work Phone: [facility] Work Phone: 08-27-2021 08:34-0400 Body weight 53.[address] Cristal Astudillo Work Phone: [facility] Work Phone: 08-27-2021 08:34-0400 Diastolic blood pressure 64 mm[Hg] Dr. Cristal Astudillo Work Phone: [facility] Work Phone: 08-27-2021 08:34-0400 Heart rate 71 /min Dr. Cristal Astudillo Work Phone: [facility] Work Phone: 08-27-2021 08:34-0400 Respiratory rate 16 /min Dr. Cristal Astudillo Work Phone: [facility] Work Phone: 08-27-2021 08:34-0400 SaO2% (BldA) [Mass fraction] 99 % Dr. Cristal Astudillo Work Phone: [facility] Work Phone: 08-27-2021 08:34-0400 Systolic blood pressure 130 mm[Hg] Dr. Cristal Astudillo Work Phone: [facility] Work Phone: 07-31-2021 06:34-0500 Body temperature 97.9 [degF] Dr. Cristal Astudillo Work Phone: [facility] Work Phone: 07-31-2021 06:34-0500 Diastolic blood pressure 53 mm[Hg] Dr. Cristal Astudillo Work Phone: [facility] Work Phone: 07-31-2021 06:34-0500 Heart rate 64 /min Dr. Cristal Astudillo Work Phone: [facility] Work Phone: 07-31-2021 06:34-0500 Respiratory rate 16 /min Dr. Cristal Astudillo Work Phone: [facility] Work Phone: 07-31-2021 06:34-0500 SaO2% (BldA) [Mass fraction] 97 % Dr. Cristal Astudillo Work Phone: [facility] Work Phone: 07-31-2021 06:34-0500 Systolic blood pressure 112 mm[Hg] Dr. Cristal Astudillo Work Phone: [facility] Work Phone: 07-30-2021 10:18-0500 Body mass index (BMI) [Ratio] 21.3 kg/m2 Dr. Cristal Astudillo Work Phone: [facility] Work Phone: 07-30-2021 10:18-0500 Body weight [address] Cristal Astudillo Work Phone: [facility] Work Phone: 07-16-2021 08:03-0500 Diastolic blood pressure 68 mm[Hg] Dr. Cristal Astudillo Work Phone: [facility] Work Phone: 07-16-2021 08:03-0500 Heart rate 82 /min Dr. Cristal Astudillo Work Phone: [facility] Work Phone: 07-16-2021 08:03-0500 Systolic blood pressure 135 mm[Hg] Dr. Cristal Astudillo Work Phone: [facility] Work Phone: 07-16-2021 07:49-0500 Body weight 53.[address] Cristal Astudillo Work Phone: [facility] Work Phone: 07-16-2021 07:49-0500 Respiratory rate 16 /min Dr. Cristal Astudillo Work Phone: [facility] Work Phone: 06-19-2020 06:59-0500 Body mass index (BMI) [Ratio] 21 kg/m2 Dr. Cristal Astudillo Work Phone: [facility] Work Phone: Encounters Encounter Date Encounter Type Care Provider Facility Start: 02-04-2025 End: 02-04-[address] Cristal Astudillo MD -[facility] Work Phone: Start: 02-04-2025 End: 02-04-[address] Cristal Astudillo MD Work Phone: -[facility] Start: 01-03-2025 End: 01-03-[address] Cristal Astudillo MD Work Phone: -Laboratory Start: 01-03-2025 End: 01-03-[address] Morelia Higgins MD -Laboratory Work Phone: Start: 01-03-2025 End: 01-03-2025 ambulatory Cristal Astudillo Facility:[facility] Start: 10-12-2024 End: 10-12-[address] Cristal Astudillo MD Work Phone: [facility] Work Phone: Start: 10-12-2024 End: 10-12-[address] Morelia Higgins MD -Laboratory Work Phone: Start: 10-12-2024 End: 10-12-2024 ambulatory Cristal Astudillo Facility:[facility] Start: 10-08-2024 End: 10-08-2024 Patient encounter procedure Zafar Tolliver ID -[facility] Work Phone: Start: 10-08-2024 End: 10-08-2024 ambulatory [facility] Facility:[facility] [place] Start: 09-07-2024 End: 09-07-[address] Cristal Astudillo MD Work Phone: [facility] Work Phone: Start: 09-07-2024 End: 09-07-[address] Cristal Astudillo MD -Laboratory Work Phone: Start: 09-06-2024 End: 09-06-[address] Marcial Moe MD -[facility] Work Phone: Start: 09-06-2024 End: 09-07-2024 ambulatory [facility] Facility:[facility] Start: 08-23-2024 End: 08-23-[address] Cristal Astudillo MD -[facility] Work Phone: Start: 08-23-2024 End: 08-23-2024 ambulatory [facility] Facility:[facility] Start: 08-16-2024 End: 08-16-[address] Cristal Astudillo MD Work Phone: [facility] Work Phone: Start: 08-16-2024 End: 08-16-[address] Cristal Astudillo MD -[facility] Work Phone: Start: 08-16-2024 End: 08-16-[facility] Start: 08-06-2024 End: 08-06-[address] Cristal Astudillo MD -[facility] Work Phone: Start: 08-06-2024 End: 08-06-20[facility] Start: 08-02-2024 End: 08-02-[address] Morelia Higgins MD -Laboratory Work Phone: Start: 08-02-2024 End: 08-02-2024 ambulatory [facility] Facility:[facility] Start: 06-22-2024 End: 06-22-2024 Patient encounter procedure Sathish MORGAN -Laboratory Work Phone: Start: 06-22-2024 End: 06-22-2024 ambulatory [facility] Facility:[facility] Start: 05-08-2024 End: 05-08-[address] Morelia Higgins MD -Laboratory Work Phone: Start: 05-08-2024 End: 05-08-2024 ambulatory [facility] [place] Facility:[facility] Start: 03-28-2024 ambulatory [facility] [place] Facility :[facility] Start: 03-28-2024 End: 03-28-2024 ambulatory [facility] Facility:[facility] Start: 03-07-2024 End: 03-07-2024 ambulatory [facility] [place] Facility:[facility] Start: 08-19-2023 End: 08-19-[address] Cristal Astudillo Work Phone: [facility] Work Phone: Start: 08-19-2023 End: 08-19-[address] Cristal Astudillo Work Phone: [facility]Laboratory Work Phone: Start: 08-16-2023 End: 08-16-[address] Cristal Astudillo Work Phone: [facility] Work Phone: Start: 08-16-2023 End: 08-16-[address] Cristal Astudillo Work Phone: [facility]-Outpatient Breast Imaging Work Phone: Start: 08-03-2023 End: 08-03-[address] Cristal Astudillo Work Phone: [facility] Work Phone: Start: 07-21-2023 End: 07-21-[address] Cristal Astudillo Work Phone: [facility] Work Phone: Start: 07-07-2023 End: 07-07-2023 ambulatory [facility] Work Phone: Start: 07-07-2023 End: 07-07-2023 Patient encounter procedure [facility] Work Phone: Start: 05-18-2023 End: 05-18-[address] Cristal Astudillo Work Phone: [facility] Work Phone: Start: 05-18-2023 End: 05-18-[address] Cristal Astudillo Work Phone: [facility] Work Phone: Start: 03-22-2023 End: 03-22-[address] Cristal Astudillo Work Phone: [facility] Work Phone: Start: 03-22-2023 End: 03-22-[address] Crist[facility]studillo [facility] Start: 03-01-2023 Non-patient / Non-visit Dr. Allyson Astudillo Work Phone: [facility] Start: 03-01-2023 End: 03-01-2023 Admission to same day surgery center Dr. Cristal Astudillo Work Phone: [facility]-Endoscopy Work Phone: Start: 03-01-2023 End: 03-01-[address] Cristal Astudillo Work Phone: [facility] Work Phone: Start: 02-24-2023 End: 02-24-[address] Cristal Astudilol Work Phone: [facility] Work Phone: Start: 02-17-2023 End: 02-17-[address] Cristal Astudillo Work Phone: [facility] Work Phone: Start: 01-31-2023 End: 01-31-[address] Cristal Astudillo Work Phone: [facility] [place] Work Phone: Start: 01-11-2023 End: 01-11-2023 ambulatory [facility] Work Phone: Start: 01-11-2023 End: 01-11-2023 Patient encounter procedure [facility] Work Phone: Start: 11-22-2022 End: 11-22-2022 Patient encounter procedure [facility] Work Phone: Start: 08-11-2022 End: 08-11-[address] Cristal Astudillo Work Phone: [facility] Work Phone: Start: 08-11-2022 End: 08-11-[address] Cristal Astudillo Work Phone: [facility]-Outpatient Breast Imaging Start: 08-04-2022 End: 08-04-[address] Cristal Astudillo Work Phone: [facility] [place] Start: 07-20-2022 End: 07-20-[address] Cristal Astudillo Work Phone: [facility] Start: 07-14-2022 End: 07-14-[address] Cristal Astudillo Work Phone: [facility] Work Phone: Start: 07-14-2022 End: 07-14-[address] Cristal Astudillo Work Phone: [facility] Start: 05-24-2022 End: 05-24-[address] Cristal Astudillo Work Phone: [facility] Work Phone: Start: 05-24-2022 End: 05-24-[address] Cristal Astudillo [facility] Start: 02-03-2022 End: 02-03-[address] Cristal Astudillo Work Phone: [facility] [place] Start: 01-13-2022 End: 01-13-2022 [facility] Start: 09-11-2021 End: 09-11-[address] Cristal Astudillo [facility] Start: 09-11-2021 End: 09-11-[address] Cristal Astudillo Work Phone: [facility] Start: 09-01-2021 End: 09-01-[address] Cristal Astudillo Work Phone: [facility], [facility] Start: 08-27-2021 End: 08-27-[address] Cristal Astudillo [facility] Phone[facility] Start: 08-27-2021 End: 08-27-[address] Cristal Astudillo Work Phone: [facility] Start: 07-30-2021 End: 07-31-2021 Evaluation and management of inpatient Dr. Cristal Astudillo Work Phone: [facility]-Medical Surgical 3 Start: 07-22-2021 End: 07-22-[address] Cristal Astudillo Work Phone: [facility] Start: 07-16-[address] Cristal Astudillo Work Phone: [facility] Comment on above: Repair of prolapsed uterus on 06/29/21 Start: 07-16-2021 End: 07-16-2021 Admission to same day surgery center Dr. Cristal Astudillo Work Phone: [facility] Start: 07-16-2021 End: 07-16-[address] Cristal Astudillo Work Phone: [facility] Start: 07-08-2021 End: 07-08-[address] Cristal Astudillo Work Phone: [facility]Labor[facility] Start: 06-17-2021 Non-patient / Non-visit Dr. Allyson Astudillo Work Phone: [facility] Procedures Date Procedure Procedure Detail Performing Clinician [...] on above: 07/[address] Cristal Clayton hner Work Phone: Plan of Treatment Date Care Activity Detail Author Start: 08-19-2023 CBC W Auto Differential panel - Blood [facility] Start: 08-19-2023 Procedure [facility] Start: 08-19-2023 Thyroid stimulating hormone measurement [facility] Start: 08-19-2023 [facility] Start: 03-01-2023 Colonoscopy flx dx w/collj spec when pfrmd DIAGNOSTIC COLONOSCOPY [facility] Start: 03-01-2023 Patient discharge [facility] Start: 02-17-2023 Patient referral [facility] Work Phone: Start: 07-30-2021 Anesthesia vaginal hysterectomy incl biopsy ANESTH VAGINAL HYSTERECTOMY [facility] Work Phone: Start: 07-30-2021 Vaginal hysterectomy 250 gm/< w/rpr enterocele VAG HYST W/ENTEROCELE REPAIR [facility] Work Phone: Alanine aminotransfe rase [Enzymatic activity/volume] in Serum or Plasma [facility] Albumin [Mass/volume ] in Serum or Plasma [facility] Alkaline phosphatase [Enzymatic activity/volume] in Serum or Plasma [facility] Anion gap measurement [facility] Aspartate aminotrans ferase [Enzymatic activity/volume] in Serum or Plasma [facility] Bacteria identified in Urine by Culture Urine Culture [facility] Work Phone: Bilirubin, total measurement [facility] BUN/Creatinine ratio [facility] Calcium [Mass/volume ] in Serum or Plasma [facility] Carbon dioxide, tota l [Moles/volume] in Serum or Plasma [facility] CBC W Auto Different ial panel - Blood [facility] Chloride [Moles/volu me] in Serum or Plasma [facility] Colonoscopy [facility] Creatinine [Moles/vo lume] in Serum or Plasma [facility] Erythrocyte mean corpuscular volume determination [facility] Glucose [Mass/volume ] in Serum or Plasma [facility] Hematocrit [Volume Fraction] of Blood [facility] Hemoglobin [Mass/vol ume] in Blood [facility] Hemoglobin A1c/Hemoglobin.total in Blood [facility] Iron and Iron bindin g capacity panel - Serum or Plasma [facility] Leukocytes [#/volume ] in Blood [facility] Lipid 1996 panel - S mario or Plasma [facility] Mean corpuscular hem oglobin concentration determination [facility] Mean corpuscular hem oglobin determination [facility] Measurement of renal function [facility] Measurement of respi ratory function [facility] Neutrophil count [facility] Neutrophil percent differential count [facility] Patient referral [facility] Work Phone: Platelets [#/volume] in Blood [facility] Potassium [Moles/vol ume] in Serum or Plasma [facility] Red blood cell count [facility] Red cell distributio n width determination [facility] Sodium [Moles/volume ] in Serum or Plasma [facility] Thyroid stimulating hormone measurement [facility] Total protein measurement [facility] Urea nitrogen [Mass/ volume] in Serum or Plasma [facility] Vitamin B12 measurement [facility] Vitamin D, 25-hydrox y measurement [facility] Vitamin D, 25-hydrox y measurement [facility] Immunizations Immunization Date Immunization Notes Care Provider Fa [facility] 04-09-2021 Covid (Pfizer) Dr. Cristal luu Work Phone: [facility] 09-04-2020 Covid (Pfizer) Dr. Cristal luu Work Phone: [facility] 08-14-2020 Covid (Pfizer) Dr. Cristal luu Work Phone: [facility] Payers Date Payer Category Payer Self-pay [id number] 2024 Medicare [id number] 2023 Medicare [id number] 2023 Private Health Insurance Formerly named [facility] [id number] Private Health Insurance [id number] Unknown [id number] 2.16.8 [id number] Unknown [id number] 2.16.8 [id number] Unknown [id number] 2.16.8 [id number] Unknown [id number] 2.16.8 [id number] Unknown [id number] 2.16.8 [id number] Unknown [id number] 2.16.8 [id number] Unknown [id number] 2.16.8 [id number] Unknown [id number] 2.16.8 [id number] Unknown [id number] 2.16.8 [id number] Unknown [id number] 2.16.8 [id number] Unknown [id number] 2.16.8 [id number] Unknown [id number] 2.16.8 [id number] Unknown [id number] 2.16.8 [id number] Unknown [id number] 2.16.8 [id number] Unknown [id number] 2.16.8 [id number] Unknown [id number] 2.16.8 [id number] Social History Date Type Detail Facility Start: 08-27-2021 End: 08-03-2023 Tobacco smoking status NHIS Unknown if ever smoked [facility] Start: 06-19-2018 Non-smoker [facility] Start: 1940 Sex Assigned At Female [facility] Start: 08-22-2024 Tobacco smoking status NHIS Never smoked tobacco (finding) [facility] Start: 08-27-2024 End: 09-12-2024 Sex Female (finding) [facility] NEGATED: Highlighted row [facility] Goals Date Patient Goal Desired Activity /State Functional Status Date Assessment Result Facility 07-31-2021 Functional status Ambulates [facility] Work Phone: Mental Status Date Assessment Result Facility 03-01-2023 Cognitive function Touch/Shaking [facility] Work Phone: 07-31-2021 Cognitive function Level Of Cons ciousness Awake;Alert;Appropriate [facility] Work Phone: 07-30-2021 Cognitive function Voice/Name [facility] Work Phone: Clinical Notes 03-01-2023 to 08-06-2024 Note Date & Type Note Facility 08-06-2024 Evaluation note Diagnosis Onset Date Resolution Essential hypertension chronic [facility] 2024 7:49am Hyperlipidemia chronic July 152024 7:49am Inflammatory polyarthropathy chronic August 06 7:49am Lesion of skin of nose acute [facility] 2024 7:53am Tendinitis of extensor tendon of left hand acute August 23, 2024 7:53am [facility] Work Phone: 1(365) 351-788602-24-2025 Evaluation note* Diagnosis Onset Date Resolution Status Admit Date Essential hypertension chronic [facility] 2024 7:49am Hyperlipidemia chronic July 152024 7:49am Inflammatory polyarthropathy chronic August 06, 2024 7:49am Lesion of skin of nose acute [facility] 2024 7:53am Tendinitis of extensor tendo n of left hand acute August 23, 2024 7:53am Essential hypertension chronic [facility] 2024 9:21am Hyperlipidemia chronic August 9:21am [facility] Work Phone: 1(912) 116-186009-19-2023 Procedure [facility] Diagnosis Onset Date Resolution Status Preop cardiovascular exam ac onofre Essential hypertension chron ic Hyperlipidemia chronic Onychomycosis acute Vitamin D deficiency acute Essential hypertension chron ic Hyperlipidemia chronic [facility] Work Phone: Evaluation note* Diagnosis Onset Date Resolution Status Preop cardiovascular exam ac onofre Essential hypertension chron ic Hyperlipidemia chronic Onychomycosis acute Vitamin D deficiency acute Essential hypertension chron ic Hyperlipidemia chronic Flank pain acute Hematuria acute History of hysterectomy acut e [facility] Work Phone: Evaluation noteNo assessment information available [facility] Work Phone: Evaluation note* Diagnosis Onset Date Resolution Status Onychomycosis acute Vitamin D deficiency acute Essential hypertension chron ic Hyperlipidemia chronic Inflammatory polyarthropathy chronic [facility] Work Phone: Evaluation note* Diagnosis Onset Date Resolution Status Essential hypertension chron ic Hyperlipidemia chronic [facility] Work Phone: Evaluation note* Diagnosis Onset Date Resolution Status Essential hypertension chron ic Hyperlipidemia chronic Dysuria acute Essential hypertension chron ic Hyperlipidemia chronic Inflammatory polyarthropathy chronic [facility] Work Phone: Evaluation note* Diagnosis Onset Date Resolution Status Lesion of skin of nose acute Essential hypertension chron ic Hyperlipidemia chronic Inflammatory polyarthropathy chronic Colon cancer screening acute Encounter to discuss test results acute Positive colorectal cancer s creening using Cologuard test acute [facility] Work Phone: Evaluation note* Diagnosis Onset Date Resolution Status Essential hypertension chron ic Hyperlipidemia chronic Encounter to discuss test results acute Nocturnal leg cramps acute Essential hypertension chron ic Hyperlipidemia chronic [facility] Work Phone: Evaluation note* Diagnosis Onset Date Resolution Status Admit Date Essential hypertension chronic [place] 2024 7:51am Hyperlipidemia chronic January 7:51am Inflammatory polyarthropathy chronic February 04, 2025 7:51am [facility] Work Phone: History and physical note Author Donnie Fish [facility] March 01, 2023 8:29am Note Date/Time March 01, 2023 8:29am [facility] Medical Records Department [address] [place] [address] History & Physical Exam 03/01/23828 MR#: [id number] Acct: [id number] Name: PHANI DOMÍNGUEZ Rep #:[id number] : 1940 82 From: Donnie adhikari MD PCP: Dr. Cristal Astudillo MD Status:[facility] Location: [place] [address] History and Physical Date of Admission: 03/01/23 [...] mg PO DAILY 02/17/23 [History Confirmed 02/24/23] [facility] Medical History (Updated 02/24/23 @ 14:35 by [...] General: cooperative Orientation: alert and oriented x3 HENMT Head: normal to inspection Neck Neck: normal [...] proceed with procedure. Donnie Fish MD Pager: [facility] [address] [place] [address], [address] [place] [address] Office: I have examined the patient and the H&P has been reviewed. There are no clinicalchanges since date of exam. 03/01/23828 <Electronically signed by Donnie Fish MD> Cosigner Signature (if applicable): CC: Dr. Donnie Fish MD; Dr. Cristal Astudillo MD~ Signed [facility] Work Phone: Reason for referral (narrative)No reason for referral [facility] Work Phone: Chief Complaint and Reason for [...] ON BACK OF HEAD October 08 1:25pm Chief Complaint Admit Date TICK BITE ON BACK OF HEAD October 08 1:25pm Chief Complaint Admit Date TICK BITE ON BACK OF HEAD October 08 1:25pm 6 M FU February 04, 2025 7: 51am Reason for Visit Admit Date Essential hypertension February 04, 2025 7:51am Hyperlipidemia February 04, 2025 7: 51am Inflammatory polyarthropathy January 7:51am Family History No Family History Records Found [...] Will Yes July 30 12:18pm Power of Battery Mechanic Yes July 30, 2021 12:18pm Advance Directive Response Recorded Date/ Time Living Will Yes July 30 11:18am Power of Battery Mechanic Yes July 30, 2021 11:18am Advance Directive Response Recorded Date/ Time Name of Medical Power of Battery Mechanic LISSETT DOMÍNGUEZ February 24, 2023 11:25am Living Will Yes February 24, 2023 11:25am Power of Battery Mechanic Yes February 11:25am Advance Directive Response Recorded Date/ Time Name of Medical Power of Battery Mechanic LISSETT DOMÍNGUEZ February 24, 2023 10:25am Living Will Yes February 24, 2023 10:25am Power of Battery Mechanic Yes February 10:25am Advance Directive Response Recorded Date/ Time Living Will Yes February 24, 2023 10:25am Power of Battery Mechanic Yes February 10:25am Advance Directive Response Recorded Date/ Time Living Will Yes February 24, 2023 11:25am Power of Battery Mechanic Yes February 11:25am Advance Directive Response Recorded Date/ Time Living Will Yes February 24, 2023 11:25am Do you have a Healthcare Power of Battery Mechanic? Yes February 24, 2023 11:25am Summary Purpose [...] MD Primary Care Provider Active Sathish Brewster PACE ANALYST, PACE ANALYST-C Attending Provider, Referring Pro vider Active Dr. Morelia Higgins MD Other Provider Active Team Status: Inactive Member Role Status Dates Dr. Cristal Astudillo MD Primary Care Provider Active Sathish Brewster PACE ANALYST, PACE ANALYST-C Attending Provider, Referring Pro vider Active Team Status: Inactive Member Role Status Dates Dr. Cristal Astudillo MD Primary Care Provider, Referri ng Provider Active Sathish Brewster PACE ANALYST, PACE ANALYST-C Attending Provider Active Team Status: Active Member [...] 2024 End: June 22, 2024 Sathish Brewster PACE ANALYST, PACE ANALYST-C Attending Provider Active S tart: June 22, 2024 End: June 22, 2024 Sathish Brewster PACE ANALYST, PACE ANALYST-C Referring Provider Active S tart: June 22, [...] 08, 2024 End: October 08, 2024 Zafar Tolliver PA, PA Attending Provider Active Start: October 08, [...] October 12, 2024 End: October 12, 2024 Team Status: Active Member Role/Relationship Status Dates Dr. Cristal Astudillo MD Primary Care Provider Active Team Status: Inactive Member Role/Relationship Status Dates Dr. Cristal Astudillo MD Primary Care Provider Active Start: October 08, 2024 End: October 08, 2024 Dr. Cristal Astudillo MD Referring Provider Active Start: October 08, 2024 End: October 08, 2024 Zafar Tolliver PA, PA Attending Provider Active Start: October 08, 2024 End: October 08, 2024 Team Status: Inactive Member Role/Relationship Status Dates Dr. Cristal Astudillo MD Primary Care Provider Active Start: October 12, 2024 End: October 12, 2024 Dr. Morelia Higgins MD Attending Provider Active Start: October 12, 2024 End: October 12, 2024 Dr. Morelia Higgins MD Referring Provider Active Start: October 12, 2024 End: October 12, 2024 Team Status: Inactive Member Role/Relationship Status Dates Dr. Cristal Astudillo MD Primary Care Provider Active Start: January 03, 2025 End: January 03, 2025 Dr. Morelia Higgins MD Attending Provider Active Start: January 03, 2025 End: January 03, 2025 Dr. Morelia Higgins MD Referring Provider Active Start: January 03, 2025 End: January 03, 2025 Team Status: Inactive Member Role/Relationship Status Dates Dr. Cristal Astudillo MD Primary Care Provider Active Start: February 04, 2025 End: February 04, 2025 Dr. Cristal Astudillo MD Attending Provider Active Start: February 04, 2025 End: February 04, 2025 INFORMATION SOURCE (unrecogn ized section and content) DATE CREATED AUTHOR 02/05/2025 [facility] FOR RECORDS PERTAINING TO PATIENTS WHO ARE [...] BE BASED ON THE PRIMARY CLINICAL RECORDS. [facility]. provides no warranty or guarantee of the accuracy or completeness of information in this document.
[2025-02-06 08:01] LABS: Hematocrit 35.3 % (37-47); Hemoglobin 11.7 g/dL (12.0-15.0); Immature Granulocytes Count 0.040 X10^3/uL (0.0-0.0); Mean Corp Hgb Conc 33.1 g/dL (32-36); Mean Corpuscular Volume 91.9 fL (81-99); Mean Platelet Vol. 10.2 fl (6.2-12.0); NRBC Flagged by Analyzer 0 % (0-5); Platelet Count 321 K/mm3 (150-450); RBC Distribution Width CV 13.3 % (11.6-14.6); RBC Distribution Width SD 43.7 fl (35.1-43.9); Red Blood Count 3.84 M/mm3 (4.2-5.4); White Blood Count 7.6 K/mm3 (4.4-11.0)
[2025-02-06 09:09] LABS: Iron 76 ug/dL (50-170); Iron Binding Capacity,Total 281 ug/dL (250-450); Iron Binding Capacity,Unsat 205 ug/dL (228-428); Vitamin B12 261 pg/mL (180-914); Vitamin D,25 Hydroxy 48.3 ng/mL (30-100)
== END | disposition home or self-care (01) ==
LOC: LAB 07:05
PROVIDERS: PCP Internal Medicine; Referring Provider Internal Medicine; Visit Provider Internal Medicine
DX: E53.8 Deficiency of other specified B group vitamins (principal); E55.9 Vitamin D deficiency, unspecified; D64.9 Anemia, unspecified
CPT/HCPCS: 36415; 82306; 82607; 83540; 83550; 85025

== ENCOUNTER → 2025-02-07 | Outpatient (CLI) | payer MEDICARE, OTHER, SELFPAY ==
--- OUTSIDE RECORDS SUMMARY | 2025-02-07 06:48 | XMS RPT_ITS | CCD ---
Author Organization [facility] Care Team Providers Care Jointer Operator Name Role Phone Dr. Cristal Astudillo Primary Care Provider Dr. Marcial Moe Attending Provider Dr. Sathish Chan Referring Provider Dr. Pérez Eddy Referring Provider [facility] CIGAR HEAD PERFORATOR, EDDIE Lisa Attending Provider Dr. Cristal Astudillo [...] Attending Provider Dr. Cristal Astudillo Referring Provider [phone] Dr. Donnie Fish Attending Provider Dr. Donnie Fish Other Provider Dr. Cristal Astudillo Primary Care Provider Dr. Cristal Astudillo Attending Provider Dr. Cristal Astudillo Referring Provider Dr. Donnie Fish Attending Provider Dr. Donnie Fish Other Provider Dr. Cristal Astudillo Primary Care Provider Dr. Cristal Astudillo Referring Provider Roof CIGAR HEAD PERFORATOR, CIGAR HEAD PERFORATOR-C Sathish Lisa Attending Provider Dr. Cristal Astudillo Attending Provider Dr. Cristal Astudillo Primary Care Provider Dr. Cristal Astudillo Referring Provider Roof CIGAR HEAD PERFORATOR, CIGAR HEAD PERFORATOR-C Sathish Lisa Attending Provider Dr. Cristal Astudillo Attending Provider Wilda [place], Dr. Bee Primary Care Provider Gisela [place], Dr. Thibodeaux Attending Provider Gisela [place], Dr. Thibodeaux Referring Provider Roof CIGAR HEAD PERFORATOR-C, Sathish Lisa Attending Provider Roof CIGAR HEAD PERFORATOR-C, Sathish Lisa Referring Provider Wilda [place], Dr. [...] Unavailable Wilda, Cristal Primary Care Unavailable Jed CIGAR HEAD PERFORATOR, Mckenna Attending Unavailable Wilda, Cristal Primary Care Unavailable Roof CIGAR HEAD PERFORATOR, Sathish H Referring Unavailable Roof CIGAR HEAD PERFORATOR, Sathish H Consulting Unavailable Abhi, [place] Attending Unavailable Wilda, Cristal Attending Unavailable Wilda, Cristal Primary Care Unavailable Wilda, Cristal Primary Care Unavailable Wilda, Cristal Referring Unavailable Roof CIGAR HEAD PERFORATOR, Sathish H Attending Unavailable Wilda, Cristal Primary Care Unavailable Wilda, Cristal Attending Unavailable Wilda, Cristal Primary Care Unavailable Wilda, Cristal Attending Unavailable Wilda, Cristal Primary Care Unavailable Wilda, Cristal Referring Unavailable Abhi, [place] Attending Unavailable Wilda, Cristal Primary Care Unavailable Wilda, Cristal Referring Unavailable Zafar See Attending Unavailable Wilda, Cristal Primary Care Unavailable Vellanki, Morelia Referring Unavailable Vellanki, Morelia Attending Unavailable Wilda, Cristal Primary Care Unavailable Vellanki, Morelia Referring Unavailable Vellanki, Morelia Attending Unavailable Wilda, Cristal Primary Care Unavailable Vellanki, Morelia Referring Unavailable Vellanki, Morelia Attending Unavailable Wilda, Cristal Primary Care Unavailable Roof CIGAR HEAD PERFORATOR, Sathish H Referring Unavailable Roof CIGAR HEAD PERFORATOR, Sathish H Attending Unavailable Wilda, Cristal Primary Care Unavailable Roof CIGAR HEAD PERFORATOR, Sathish H Referring Unavailable Roof CIGAR HEAD PERFORATOR, Sathish Lisa Attending Unavailable Wilda, Cristal Primary Care Unavailable Vellanki, Morelia Referring Unavailable Vellanki, Morelia Attending Unavailable Allergies Allergy Classification Reported Allergen(s) Allergy Type Date of Onset Reaction(s) Facility (19 sources) Ibuprofen Drug Allergy 08-28-19 [facility] (20 sources) Penicillins; Translations: [Penicillins] Allergy to substance 08-28-19 [facility] (19 sources) rosuvastatin Drug Allergy 08-28-19 muscle pain [facility] (19 sources) bee venom protein (honey bee) Allergy to substance 08-28-19 redness [facility] (11 sources) Hydroxychloroquine Drug Allergy 03-01-20 23 Itching [facility] (9 sources) Pravastatin Drug Allergy 05-17-20 23 Myalgias/leg cramps. [facility] (1 source) Hydroxychloroquine Drug Allergy 02-05-20 [facility] (1 source) Ibuprofen Drug Allergy 02-05-20 [facility] (1 source) Pravastatin Drug Allergy 02-05-20 [facility] (1 source) rosuvastatin Drug Allergy 02-05-20 [facility] (1 source) bee venom protein (honey bee) Drug allergy (disorder) 02-05-20 [facility] Medications Current Medications Medication Drug [...] 2017 12:00am June 19, 2020 10:33am Vit C,K-Ut-Vlvyk-Lutein-Zeax an (14 sources) Start: 12-26-2017 End: 06-19-2020 Vit C,X-Ay-Bfgvh-Lutein-Zeax an Discontinued 1 EACH PO DAILY December 26, 2017 1:22pm June 19, 2020 10:34am Start: 12-26-2017 End: 06-19-2020 Vit C,S-Ih-Zqlqa-Lutein-Zeax an Discontinued 1 EACH PO DAILY December 25, 2017 11:00pm June 19, 2020 9:34am Start: 12-26-2017 End: 06-19-2020 Vit C,I-Gz-Eacqb-Lutein-Zeax an Discontinued 1 EACH PO DAILY December 26, 2017 12:00am June 19, 2020 10:34am Vit C,K-Ca-Ivveb-Lutein-Zeax an 1 EACH capsule (5 sources) Start: 12-26-2017 End: 06-19-2020 take 1 capsule by mouth once daily Vit C,A-Lk-Qocxa-Lutein-Zeaxan 1 EACH capsule Discontinued 1 NMA PO [...] 5 12-11-2018 Episodic Comment on above: Short MI Other skin disorders (14 sources) Lesion of [...] Interpretation Reference Range Facility MR/IMLeodan 02-04-2025 MR/BMS.IMB [facility] [address] [place] [address] OFFICE VISIT Date of Service: 02/04/25 MR#: [id number] Acct: [id number] Name: PHANI DOMÍNGUEZ Rep #: [id number] : 1940 Provider: Dr. Cristal milian MD Age/Sex: 84/F Location: [facility] Status: Signed Intake Vital Signs 08/06/24 07:59 [...] M FU Chief Complaint: no acute concerns Director Check Required: No Accompanied by: Self Is patient [...] is di (more content not included)... Normal [facility] Absolute lymphocyte countOrd ered By: Morelia Higgins on 01-03-2025 Lymphocytes Auto (Unsp spec) [#/Vol] 1.46 10*3/uL 0.83-4.51 [facility] Absolute neutrophil countOrd ered By: Morelia Higgins on 01-03-2025 Neutrophils (Bld) [#/Vol] 6.8 10*3/uL 2.0-7.7 [facility] Anion gap in Serum or Plasma Ordered By: Morelia Higgins on 01-03-2025 Anion gap [Moles/Vol] 10 mmol/L 5-15 [facility] Automated lymphocyte count a s percentage of total leukocytesOrdered By: Morelia Higgins on 01-03-2025 Lymphocytes/100 WBC Auto (Unsp spec) 15.7 % Low 19-41 [facility] BUN/creatinine ratioOrdered By: Morelia Higgins on 01-03-2025 Urea nitrogen/Creatinine [Mass ratio] 23.9 mg/mg High 10-20 [facility] Basophil percentageOrdered B y: Morelia Hawthornegermán on 01-03-2025 Basophils/100 WBC (Bld) 0.6 % 0-1 [facility] Bilirubin, totalOrdered By: Morelia Higgins on 01-03-2025 Bilirubin [Mass/Vol] 0.77 mg/dL 0.00-1.30 [facility] CBC W/Diff, Automatedon 12-12 Absolute Lymph 1.46 X10 3/uL Normal 0.83-4.51 [facility] Comment on above: Performed By: #### L 501.6710, L101.9900, L500.4050, L100.0100 #### [facility] [address] [place], [address] Absolute Neut 6.8 X10 3/uL Normal 2.0-7.7 [facility] Comment on above: Performed By: #### L 501.6710, L101.9900, L500.4050, L100.0100 #### [facility] [address] [place], [address] Basophils/100 WBC (Bld) 0.6 % Normal 0-1 [facility] Comment on above: Performed By: #### L 501.6710, L101.9900, L500.4050, L100.0100 #### [facility] [address] [place], [address] Eosinophils/100 WBC (Bld) 2.6 % Normal 0-5 [facility] Comment on above: Performed By: #### L 501.6710, L101.9900, L500.4050, L100.0100 #### [facility] [address] [place], [address] Erythrocyte distribution width (RBC) [Ratio] 13.4 % Normal 11.6-14.6 [facility] Comment on above: Performed By: #### L 501.6710, L101.9900, L500.4050, L100.0100 #### [facility] [address] [place], [address] Hematocrit (Bld) [Volume fraction] 37.6 % Normal 37-47 [facility] Comment on above: Performed By: #### L 501.6710, L101.9900, L500.4050, L100.0100 #### [facility] [address] [place], [address] Hemoglobin (Bld) [Mass/Vol] 12.1 g/dL Normal 12.0-15.0 [facility] Comment on above: Performed By: #### L 501.6710, L101.9900, L500.4050, L100.0100 #### [facility] [address] [place], [address] IG% 1.000 High 0.0-0.9 [facility] Comment on above: Result Comment: IG% - Immature Granulocytes (promyelocytes, myelocytes and metamyelocytes) > 1% indicates that a LEFT SHIFT is Present. Performed By: #### L 501.6710, L101.9900, L500.4050, L100.0100 #### [facility] [address] [place], [address] Lymphocytes/100 WBC (Bld) 15.7 % Low 19-41 [facility] Comment on above: Performed By: #### L 501.6710, L101.9900, L500.4050, L100.0100 #### [facility] [address] [place], [address] MCH (RBC) [Entitic mass] 30.3 pg Normal 27.0-32.0 [facility] Comment on above: Performed By: #### L 501.6710, L101.9900, L500.4050, L100.0100 #### [facility] [address] [place], [address] MCHC (RBC) [Mass/Vol] 32.2 g/dL Normal 32-36 [facility] Comment on above: Performed By: #### L 501.6710, L101.9900, L500.4050, L100.0100 #### [facility] [address] [place], [address] MCV (RBC) [Entitic vol] 94.0 fL Normal 81-99 [facility] Comment on above: Performed By: #### L 501.6710, L101.9900, L500.4050, L100.0100 #### [facility] [address] [place], [address] Monocytes/100 WBC (Bld) 7.1 % Normal 0-10 [facility] Comment on above: Performed By: #### L 501.6710, L101.9900, L500.4050, L100.0100 #### [facility] [address] [place], [address] Neutrophils/100 WBC (Bld) 73.0 % High 47-70 [facility] Comment on above: Performed By: #### L 501.6710, L101.9900, L500.4050, L100.0100 #### [facility] [address] [place], [address] Nucleated RBC (Bld) [#/Vol] 0 10*3/uL Normal 0-5 [facility] Comment on above: Performed By: #### L 501.6710, L101.9900, L500.4050, L100.0100 #### [facility] [address] [place], [address] Platelet mean volume (Bld) [Entitic vol] 10.2 fL Normal 6.2-12.0 [facility] Comment on above: Performed By: #### L 501.6710, L101.9900, L500.4050, L100.0100 #### [facility] [address] [place], [address] Platelets (Bld) [#/Vol] 353 10*3/uL Normal 150-450 [facility] Comment on above: Performed By: #### L 501.6710, L101.9900, L500.4050, L100.0100 #### [facility] [address] [place], [address] RBC (Bld) [#/Vol] 4.00 10*6/uL Low 4.2-5.4 [facility] Comment on above: Performed By: #### L 501.6710, L101.9900, L500.4050, L100.0100 #### [facility] [address] [place], [address] RDW SD 45.9 fl High 35.1-43.9 [facility] Comment on above: Performed By: #### L 501.6710, L101.9900, L500.4050, L100.0100 #### [facility] [address] [place], [address] WBC (Bld) [#/Vol] 9.3 10*3/uL Normal 4.4-11.0 [facility] Comment on above: Performed By: #### L 501.6710, L101.9900, L500.4050, L100.0100 #### [facility] [address] [place], [address] CRPon 01-03-2025 C-REACTIVE PROT 5.81 mg/L High 0.0-3.0 [facility] Comment on above: Performed By: #### L 501.6710, L101.9900, L500.4050, L100.0100 #### [facility] [address] [place], [address] Carbon dioxide, total [Moles /volume] in Central venous bloodOrdered By: Morelia Higgins on 01-03-2025 CO2 [Moles/Vol] 23.2 mmol/L 21.0-32.0 [facility] Chloride assayOrdered By: Gerson Higgins on 01-03-2025 Chloride [Moles/Vol] 106 mmol/L 98-108 [facility] Comprehensive Metabolic Prof ilon 01-03-2025 Albumin [Mass/Vol] 3.6 g/dL Normal 3.4-4.8 [facility] Comment on above: Performed By: #### L 501.6710, L101.9900, L500.4050, L100.0100 #### [facility] [address] [place], [address] Albumin/Globulin [Mass ratio] 1.4 {ratio} Normal 0.9-2.4 [facility] Comment on above: Performed By: #### L 501.6710, L101.9900, L500.4050, L100.0100 #### [facility] [address] [place], [address] ALK PHOS 79 U/L Normal 35-104 [facility] Comment on above: Performed By: #### L 501.6710, L101.9900, L500.4050, L100.0100 #### [facility] [address] [place], [address] ALT [Catalytic activity/Vol] 21 U/L Normal <=34 [facility] Comment on above: Performed By: #### L 501.6710, L101.9900, L500.4050, L100.0100 #### [facility] [address] [place], [address] AST [Catalytic activity/Vol] 19 U/L Normal <=31 [facility] Comment on above: Performed By: #### L 501.6710, L101.9900, L500.4050, L100.0100 #### [facility] [address] [place], [address] Bilirubin [Mass/Vol] 0.77 mg/dL Normal 0.00-1.30 [facility] Comment on above: Performed By: #### L 501.6710, L101.9900, L500.4050, L100.0100 #### [facility] [address] [place], [address] BUN/CRE 23.9 RATIO High 10-20 [facility] Comment on above: Performed By: #### L 501.6710, L101.9900, L500.4050, L100.0100 #### [facility] [address] [place], [address] Calcium [Mass/Vol] 9.0 mg/dL Normal 7.6-11.0 [facility] Comment on above: Performed By: #### L 501.6710, L101.9900, L500.4050, L100.0100 #### [facility] [address] [place], [address] Chloride [Moles/Vol] 106 mmol/L Normal 98-108 [facility] Comment on above: Performed By: #### L 501.6710, L101.9900, L500.4050, L100.0100 #### [facility] [address] [place], [address] CO2 [Moles/Vol] 23.2 mmol/L Normal 21.0-32.0 [facility] Comment on above: Performed By: #### L 501.6710, L101.9900, L500.4050, L100.0100 #### [facility] [address] [place], [address] Creatinine [Mass/Vol] 0.86 mg/dL Normal 0.70-1.20 [facility] Comment on above: Performed By: #### L 501.6710, L101.9900, L500.4050, L100.0100 #### [facility] [address] [place], [address] GAP 10 Normal 5-15 [facility] Comment on above: Performed By: #### L 501.6710, L101.9900, L500.4050, L100.0100 #### [facility] [address] [place], [address] GFR/1.73 sq M.predicted among non-blacks MDRD (S/P/Bld) [Vol rate/Area] 68 mL/min/{1.73_m2} Normal >60 [facility] Comment on above: Result Comment: mL/m in/1.73m2 CKD-EPI Creatinine Equation (2020) Performed By: #### L 501.6710, L101.9900, L500.4050, L100.0100 #### [facility] [address] [place], [address] Globulin (S) [Mass/Vol] 2.7 g/dL Normal 2.2-4.2 [facility] Comment on above: Performed By: #### L 501.6710, L101.9900, L500.4050, L100.0100 #### [facility] [address] [place], [address] Glucose [Mass/Vol] 92 mg/dL Normal 70-99 [facility] Comment on above: Performed By: #### L 501.6710, L101.9900, L500.4050, L100.0100 #### [facility] [address] [place], [address] Potassium [Moles/Vol] 4.1 mmol/L Normal 3.3-5.1 [facility] Comment on above: Performed By: #### L 501.6710, L101.9900, L500.4050, L100.0100 #### [facility] [address] [place], [address] Sodium [Moles/Vol] 139 mmol/L Normal 133-145 [facility] Comment on above: Performed By: #### L 501.6710, L101.9900, L500.4050, L100.0100 #### [facility] [address] [place], [address] T PROT 6.3 g/dL Normal 5.9-8.4 [facility] Comment on above: Performed By: #### L 501.6710, L101.9900, L500.4050, L100.0100 #### [facility] [address] [place], [address] Urea nitrogen [Mass/Vol] 21 mg/dL High 4-19 [facility] Comment on above: Performed By: #### L 501.6710, L101.9900, L500.4050, L100.0100 #### [facility] [address] [place], [address] Eosinophil percentageOrdered By: Morelia Higgins on 01-03-2025 Eosinophils/100 WBC (Bld) 2.6 % 0-5 [facility] Erythrocyte Sed Rateon 01-03 SED RATE 7 mm/hr Normal 0-30 [facility] Comment on above: Performed By: #### L 501.6710, L101.9900, L500.4050, L100.0100 #### [facility] [address] [place], [address] Erythrocyte distribution wid th ratioOrdered By: Morelia Higgins on 01-03-2025 Erythrocyte distribution width (RBC) [Ratio] 13.4 % 11.6-14.6 [facility] Erythrocyte distribution wid th standard deviationOrdered By: Morelia Higgins on 01-03-2025 Erythrocyte distribution width (RBC) [Ratio] 45.9 fl High 35.1-43.9 [facility] Erythrocyte sedimentation ra teOrdered By: Morelia Higgins on 01-03-2025 ESR (Bld) [Velocity] 7 mm/h 0-30 [facility] Glomerular filtration rate ( GFR) estimation/1.73 sq m using serum, plasma, or whole bOrdered By: Morelia Higgins on 01-03-2025 GFR/1.73 sq M.predicted among non-blacks MDRD (S/P/Bld) [Vol rate/Area] 68 mL/min/{1.73_m2} >60 [facility] Comment on above: mL/min/1.73m2 CKD-EP I Creatinine Equation (2020) Hematocrit Auto (Bld) [Volum e fraction]Ordered By: Morelia Higgins on 01-03-2025 Hematocrit (Bld) [Volume fraction] 37.6 % 37-47 [facility] Hemoglobin measurementOrdere d By: Morelia Higgins on 01-03-2025 Hemoglobin (Bld) [Mass/Vol] 12.1 g/dL 12.0-15.0 [facility] Immature granulocytes/100 WB C Auto (Bld)Ordered By: Morelia Higgins on 01-03-2025 Immature granulocytes/100 WBC (Bld) 1.000 % High 0.0-0.9 [facility] Comment on above: IG% - Immature Granu locytes (promyelocytes, myelocytes and metamyelocytes) > 1% indicates that a LEFT SHIFT is Present. Laboratory - Chemistry and C hemistry - challengeOrdered By: Morelia Higgins on 01-03-2025 AST [Catalytic activity/Vol] 19 U/L <32 [facility] Lipid Profileon 01-03-2025 TRIG Normal [facility] Comment on above: Result Comment: NOT WANTED WILL HAVE WHG PUT BACK IN The drugs N-Acetylcysteine and Metamizole may falsely depress this assay. Performed By: #### L 501.6710, L101.9900, L500.4050, L100.0100 #### [facility] [address] [place], [address] CHOL Normal <=200 [facility] Comment on above: Result Comment: NOT WANTED WILL HAVE WHG PUT BACK IN Performed By: #### L 501.6710, L101.9900, L500.4050, L100.0100 #### [facility] [address] [place], [address] CHOL:HDL Normal [facility] Comment on above: Result Comment: NOT WANTED WILL HAVE WHG PUT BACK IN Performed By: #### L 501.6710, L101.9900, L500.4050, L100.0100 #### [facility] [address] [place], [address] CLDL Normal [facility] Comment on above: Result Comment: NOT WANTED WILL HAVE WHG PUT BACK IN Performed By: #### L 501.6710, L101.9900, L500.4050, L100.0100 #### [facility] [address] [place], [address] HDL Normal [facility] Comment on above: Result Comment: NOT WANTED WILL HAVE WHG PUT BACK IN Performed By: #### L 501.6710, L101.9900, L500.4050, L100.0100 #### [facility] [address] [place], [address] VLDL Normal 5-40 [facility] Comment on above: Result Comment: NOT WANTED WILL HAVE WHG PUT BACK IN Performed By: #### L 501.6710, L101.9900, L500.4050, L100.0100 #### [facility] [address] [place], [address] Liver Profileon 01-03-2025 ALB Normal 3.4-4.8 [facility] Comment on above: Result Comment: NOT WANTED WILL HAVE WHG PUT BACK IN Performed By: #### L 501.6710, L101.9900, L500.4050, L100.0100 #### [facility] [address] [place], [address] ALK PHOS Normal 35-104 [facility] Comment on above: Result Comment: NOT WANTED WILL HAVE WHG PUT BACK IN Performed By: #### L 501.6710, L101.9900, L500.4050, L100.0100 #### [facility] [address] [place], [address] ALT Normal <=34 [facility] Comment on above: Result Comment: NOT WANTED WILL HAVE WHG PUT BACK IN Performed By: #### L 501.6710, L101.9900, L500.4050, L100.0100 #### [facility] [address] [place], [address] AST Normal <=31 [facility] Comment on above: Result Comment: NOT WANTED WILL HAVE WHG PUT BACK IN Performed By: #### L 501.6710, L101.9900, L500.4050, L100.0100 #### [facility] [address] [place], [address] D BILI Normal 0.00-0.30 [facility] Comment on above: Result Comment: NOT WANTED WILL HAVE WHG PUT BACK IN Performed By: #### L 501.6710, L101.9900, L500.4050, L100.0100 #### [facility] [address] [place], [address] T BILI Normal 0.00-1.30 [facility] Comment on above: Result Comment: NOT WANTED WILL HAVE WHG PUT BACK IN Performed By: #### L 501.6710, L101.9900, L500.4050, L100.0100 #### [facility] [address] [place], [address] T PROT Normal 5.9-8.4 [facility] Comment on above: Result Comment: NOT WANTED WILL HAVE WHG PUT BACK IN Performed By: #### L 501.6710, L101.9900, L500.4050, L100.0100 #### [facility] [address] [place], [address] MCV (mean corpuscular volume ) determinationOrdered By: Morelia Higgins on 01-03-2025 MCV (RBC) [Entitic vol] 94.0 fL 81-99 [facility] Mean corpuscular hemoglobin (MCH) determinationOrdered By: Morelia Higgins on 01-03-2025 MCH (RBC) [Entitic mass] 30.3 pg 27.0-32.0 [facility] Mean corpuscular hemoglobin concentration (MCHC) determinationOrdered By: Morelia Higgins on 01-03-2025 MCHC (RBC) [Mass/Vol] 32.2 g/dL 32-36 [facility] Mean platelet volume determi nationOrdered By: Morelia Higgins on 01-03-2025 Platelet mean volume (Bld) [Entitic vol] 10.2 fL 6.2-12.0 [facility] Monocyte percentageOrdered B y: Morelia Higgins on 01-03-2025 Monocytes/100 WBC (Bld) 7.1 % 0-10 [facility] Neutrophil percentageOrdered By: Morelia Higgins on 01-03-2025 Neutrophils/100 WBC (Bld) 73.0 % High 47-70 [facility] Nucleated red blood cell per centageOrdered By: Morelia Higgins on 01-03-2025 Nucleated RBC/100 WBC (Bld) [Ratio] 0 % 0-5 [facility] Platelet countOrdered By: Gerson Higgins on 01-03-2025 Platelets (Bld) [#/Vol] 353 10*3/uL 150-450 [facility] Potassium measurement (mass/ volume)Ordered By: Morelia Higgins on 01-03-2025 Potassium (Unsp spec) [Mass/Vol] 4.1 mmol/L 3.3-5.1 [facility] RBC Auto (Bld) [#/Vol]Ordere d By: Morelia Higgins on 01-03-2025 RBC (Bld) [#/Vol] 4.00 10*6/uL Low 4.2-5.4 [facility] Serum creatinine measurement (mass/volume)Ordered By: Morelia Higgins on 01-03-2025 Creatinine [Mass/Vol] 0.86 mg/dL 0.70-1.20 [facility] Serum globulin measurementOr dered By: Morelia Higgins on 01-03-2025 Globulin (S) [Mass/Vol] 2.7 g/dL 2.2-4.2 [facility] Serum glucose measurement (m ass/volume)Ordered By: Morelia Higgins on 01-03-2025 Glucose [Mass/Vol] 92 mg/dL 70-99 [facility] Serum or plasma C reactive p rotein measurement (mass/volume)Ordered By: Morelia Higgins on 01-03-2025 CRP [Mass/Vol] 5.81 mg/L High 0.0-3.0 [facility] Serum or plasma alanine kwok otransferase (ALT) measurementOrdered By: Morelia Higgins on 01-03-2025 ALT [Catalytic activity/Vol] 21 U/L <35 [facility] Serum or plasma albumin josué urement (mass/volume)Ordered By: Morelia Higgins on 01-03-2025 Albumin [Mass/Vol] 3.6 g/dL 3.4-4.8 [facility] Serum or plasma albumin/glob ulin mass ratioOrdered By: Morelia Higgins on 01-03-2025 Albumin/Globulin [Mass ratio] 1.4 {ratio} 0.9-2.4 [facility] Serum or plasma alkaline mike sphatase measurementOrdered By: Morelia Higgins on 01-03-2025 ALP [Catalytic activity/Vol] 79 U/L 35-104 [facility] Serum or plasma calcium josué urement (mass/volume)Ordered By: Morelia Higgins on 01-03-2025 Calcium [Mass/Vol] 9.0 mg/dL 7.6-11.0 [facility] Serum or plasma urea nitroge n measurement (mass/volume)Ordered By: Morelia Higgins on 01-03-2025 Urea nitrogen [Mass/Vol] 21 mg/dL High 4-19 [facility] Sodium levelOrdered By: Glenda Higgins on 01-03-2025 Sodium [Moles/Vol] 139 mmol/L 133-145 [facility] Total proteinOrdered By: [facility] susana Higgins on 01-03-2025 Protein [Mass/Vol] 6.3 g/dL 5.9-8.4 [facility] White blood cell (WBC) count Ordered By: [facility] Gisela on 01-03-2025 WBC (Bld) [#/Vol] 9.3 10*3/uL 4.4-11.0 [facility] Absolute lymphocyte countOrd ered By: [facility] Gisela on 10-12-2024 Lymphocytes Auto (Unsp spec) [#/Vol] 1.38 10*3/uL 0.83-4.51 [facility] Absolute neutrophil countOrd ered By: [facility] Gisela on 10-12-2024 Neutrophils (Bld) [#/Vol] 6.2 10*3/uL 2.0-7.7 [facility] Anion gap in Serum or Plasma Ordered By: [facility] Gisela on 10-12-2024 Anion gap [Moles/Vol] 10 mmol/L 5-15 [facility] Automated blood erythrocyte countOrdered By: [facility] Gisela on 10-12-2024 RBC (Bld) [#/Vol] 3.79 10*6/uL Low 4.2-5.4 [facility] Comment on above: Performed By: #### L 101.9900, L100.0100, L501.6710, L500.4050 #### [facility] [address] [place], [place], [id number] Automated blood hematocrit ( percentage)Ordered By: Moreliasusana Higgins on 10-12-2024 Hematocrit (Bld) [Volume fraction] 35.2 % Low 37-47 [facility] Comment on above: Performed By: #### L 101.9900, L100.0100, L501.6710, L500.4050 #### [facility] [address] [place], [place], [id number] Automated lymphocyte count a s percentage of total leukocytesOrdered By: Moreliasusana Higgins on 10-12-2024 Lymphocytes/100 WBC Auto (Unsp spec) 16.1 % Low 19-41 [facility] BUN/creatinine ratioOrdered By: Morelia Hawthornegermán on 10-12-2024 Urea nitrogen/Creatinine [Mass ratio] 21.2 mg/mg High 10-20 [facility] Basophil percentageOrdered B y: Morelia Higgins on 10-12-2024 Basophils/100 WBC (Bld) 1.2 % High 0-1 [facility] Comment on above: Performed By: #### L 101.9900, L100.0100, L501.6710, L500.4050 #### [facility] [address] [place], [address] Bilirubin, totalOrdered By: Morelia Gisela on 10-12-2024 Bilirubin [Mass/Vol] 0.88 mg/dL 0.00-1.30 [facility] CBC W/Diff, Automatedon 05 Absolute Lymph 1.38 X10 3/uL Normal 0.83-4.51 [facility] Comment on above: Performed By: #### L 101.9900, L100.0100, L501.6710, L500.4050 #### [facility] [address] [place], [address] Absolute Neut 6.2 X10 3/uL Normal 2.0-7.7 [facility] Comment on above: Performed By: #### L 101.9900, L100.0100, L501.6710, L500.4050 #### [facility] [address] [place], [address] IG% 0.800 Normal 0.0-0.9 [facility] Comment on above: Result Comment: IG% - Immature Granulocytes (promyelocytes, myelocytes and metamyelocytes) > 1% indicates that a LEFT SHIFT is Present. Performed By: #### L 101.9900, L100.0100, L501.6710, L500.4050 #### [facility] [address] [place], [address] Lymphocytes/100 WBC (Bld) 16.1 % Low 19-41 [facility] Comment on above: Performed By: #### L 101.9900, L100.0100, L501.6710, L500.4050 #### [facility] [address] [place], [address] Nucleated RBC (Bld) [#/Vol] 0 10*3/uL Normal 0-5 [facility] Comment on above: Performed By: #### L 101.9900, L100.0100, L501.6710, L500.4050 #### [facility] [address] [place], [address] RDW SD 47.0 fl High 35.1-43.9 [facility] Comment on above: Performed By: #### L 101.9900, L100.0100, L501.6710, L500.4050 #### [facility] [address] [place], [address] CRPon 10-12-2024 C-REACTIVE PROT 3.36 mg/L High 0.0-3.0 [facility] Comment on above: Performed By: #### L 501.6710, L101.9900, L500.4050, L100.0100 #### [facility] [address] [place], [address] Carbon dioxide, total [Moles /volume] in Central venous bloodOrdered By: Morelia Higgins on 10-12-2024 CO2 [Moles/Vol] 24.4 mmol/L 21.0-32.0 [facility] Chloride assayOrdered By: Gerson Higgins on 10-12-2024 Chloride [Moles/Vol] 106 mmol/L 98-108 [facility] Comprehensive Metabolic Prof ilon 10-12-2024 Albumin [Mass/Vol] 3.8 g/dL Normal 3.4-4.8 [facility] Comment on above: Performed By: #### L 101.9900, L100.0100, L501.6710, L500.4050 #### [facility] [address] [place], [address] Albumin/Globulin [Mass ratio] 1.5 {ratio} Normal 0.9-2.4 [facility] Comment on above: Performed By: #### L 101.9900, L100.0100, L501.6710, L500.4050 #### [facility] [address] [place], [address] ALK PHOS 83 U/L Normal 35-104 [facility] Comment on above: Performed By: #### L 101.9900, L100.0100, L501.6710, L500.4050 #### [facility] [address] [place], [address] ALT [Catalytic activity/Vol] 17 U/L Normal <=34 [facility] Comment on above: Performed By: #### L 101.9900, L100.0100, L501.6710, L500.4050 #### [facility] [address] [place], [address] AST [Catalytic activity/Vol] 18 U/L Normal <=31 [facility] Comment on above: Performed By: #### L 101.9900, L100.0100, L501.6710, L500.4050 #### [facility] [address] [place], [address] Bilirubin [Mass/Vol] 0.88 mg/dL Normal 0.00-1.30 [facility] Comment on above: Performed By: #### L 101.9900, L100.0100, L501.6710, L500.4050 #### [facility] [address] [place], [address] BUN/CRE 21.2 RATIO High 10-20 [facility] Comment on above: Performed By: #### L 101.9900, L100.0100, L501.6710, L500.4050 #### [facility] [address] [place], [address] Calcium [Mass/Vol] 9.0 mg/dL Normal 7.6-11.0 [facility] Comment on above: Performed By: #### L 101.9900, L100.0100, L501.6710, L500.4050 #### [facility] [address] [place], [address] Chloride [Moles/Vol] 106 mmol/L Normal 98-108 [facility] Comment on above: Performed By: #### L 101.9900, L100.0100, L501.6710, L500.4050 #### [facility] [address] [place], [address] CO2 [Moles/Vol] 24.4 mmol/L Normal 21.0-32.0 [facility] Comment on above: Performed By: #### L 101.9900, L100.0100, L501.6710, L500.4050 #### [facility] [address] [place], [address] Creatinine [Mass/Vol] 0.90 mg/dL Normal 0.70-1.20 [facility] Comment on above: Performed By: #### L 101.9900, L100.0100, L501.6710, L500.4050 #### [facility] [address] [place], [address] GAP 10 Normal 5-15 [facility] Comment on above: Performed By: #### L 101.9900, L100.0100, L501.6710, L500.4050 #### [facility] [address] [place], [address] GFR/1.73 sq M.predicted among non-blacks MDRD (S/P/Bld) [Vol rate/Area] 64 mL/min/{1.73_m2} Normal >60 [facility] Comment on above: Result Comment: mL/m in/1.73m2 CKD-EPI Creatinine Equation (2020) Performed By: #### L 101.9900, L100.0100, L501.6710, L500.4050 #### [facility] [address] [place], [address] Globulin (S) [Mass/Vol] 2.6 g/dL Normal 2.2-4.2 [facility] Comment on above: Performed By: #### L 101.9900, L100.0100, L501.6710, L500.4050 #### [facility] [address] [place], [address] Glucose [Mass/Vol] 99 mg/dL Normal 70-99 [facility] Comment on above: Performed By: #### L 101.9900, L100.0100, L501.6710, L500.4050 #### [facility] [address] [place], [address] Potassium [Moles/Vol] 4.0 mmol/L Normal 3.3-5.1 [facility] Comment on above: Performed By: #### L 101.9900, L100.0100, L501.6710, L500.4050 #### [facility] [address] [place], [address] Sodium [Moles/Vol] 140 mmol/L Normal 133-145 [facility] Comment on above: Performed By: #### L 101.9900, L100.0100, L501.6710, L500.4050 #### [facility] [address] [place], [address] T PROT 6.3 g/dL Normal 5.9-8.4 [facility] Comment on above: Performed By: #### L 101.9900, L100.0100, L501.6710, L500.4050 #### [facility] [address] [place], [address] Urea nitrogen [Mass/Vol] 19 mg/dL Normal 4-19 [facility] Comment on above: Performed By: #### L 101.9900, L100.0100, L501.6710, L500.4050 #### [facility] [address] [place], [address] Eosinophil percentageOrdered By: Morelia Higgins on 10-12-2024 Eosinophils/100 WBC (Bld) 2.2 % Normal 0-5 [facility] Comment on above: Performed By: #### L 101.9900, L100.0100, L501.6710, L500.4050 #### [facility] [address] [place], [address] Erythrocyte Sed Rateon 10-12 SED RATE 4 mm/hr Normal 0-30 [facility] Comment on above: Performed By: #### L 101.9900, L100.0100, L501.6710, L500.4050 #### [facility] [address] [place], [address] Erythrocyte distribution wid th ratioOrdered By: Morelia Higgins on 10-12-2024 Erythrocyte distribution width (RBC) [Ratio] 14.0 % Normal 11.6-14.6 [facility] Comment on above: Performed By: #### L 101.9900, L100.0100, L501.6710, L500.4050 #### [facility] [address] [place], [address] Erythrocyte distribution wid th standard deviationOrdered By: Morelia Higgins on 10-12-2024 Erythrocyte distribution width (RBC) [Ratio] 47.0 fl High 35.1-43.9 [facility] Erythrocyte sedimentation ra teOrdered By: Morelia Higgins on 10-12-2024 ESR (Bld) [Velocity] 4 mm/h 0-30 [facility] Glomerular filtration rate ( GFR) estimation/1.73 sq m using serum, plasma, or whole bOrdered By: Morelia Higgins on 10-12-2024 GFR/1.73 sq M.predicted among non-blacks MDRD (S/P/Bld) [Vol rate/Area] 64 mL/min/{1.73_m2} >60 [facility] Comment on above: mL/min/1.73m2 CKD-EP I Creatinine Equation (2020) Hemoglobin measurementOrdere d By: Morelia Higgins on 10-12-2024 Hemoglobin (Bld) [Mass/Vol] 11.7 g/dL Low 12.0-15.0 [facility] Comment on above: Performed By: #### L 101.9900, L100.0100, L501.6710, L500.4050 #### [facility] [address] [place], [place], [id number] Immature granulocytes/100 WB C Auto (Bld)Ordered By: Morelia Higgins on 10-12-2024 Immature granulocytes/100 WBC (Bld) 0.800 % 0.0-0.9 [facility] Comment on above: IG% - Immature Granu locytes (promyelocytes, myelocytes and metamyelocytes) > 1% indicates that a LEFT SHIFT is Present. Laboratory - Chemistry and C hemistry - challengeOrdered By: Morelia Higgins on 10-12-2024 AST [Catalytic activity/Vol] 18 U/L <32 [facility] MCV (mean corpuscular volume ) determinationOrdered By: Morelia Higgins on 10-12-2024 MCV (RBC) [Entitic vol] 92.9 fL Normal 81-99 [facility] Comment on above: Performed By: #### L 101.9900, L100.0100, L501.6710, L500.4050 #### [facility] [address] [place], [place], [id number] Mean corpuscular hemoglobin (MCH) determinationOrdered By: Morelia Higgins on 10-12-2024 MCH (RBC) [Entitic mass] 30.9 pg Normal 27.0-32.0 [facility] Comment on above: Performed By: #### L 101.9900, L100.0100, L501.6710, L500.4050 #### [facility] [address] [place], [address] Mean corpuscular hemoglobin concentration (MCHC) determinationOrdered By: Morelia Higgins on 10-12-2024 MCHC (RBC) [Mass/Vol] 33.2 g/dL Normal 32-36 [facility] Comment on above: Performed By: #### L 101.9900, L100.0100, L501.6710, L500.4050 #### [facility] [address] [place], [place], [id number] Mean platelet volume determi nationOrdered By: Morelia Higgins on 10-12-2024 Platelet mean volume (Bld) [Entitic vol] 10.2 fL Normal 6.2-12.0 [facility] Comment on above: Performed By: #### L 101.9900, L100.0100, L501.6710, L500.4050 #### [facility] [address] [place], [address] Monocyte percentageOrdered B y: Morelia Higgins on 10-12-2024 Monocytes/100 WBC (Bld) 7.0 % Normal 0-10 [facility] Comment on above: Performed By: #### L 101.9900, L100.0100, L501.6710, L500.4050 #### [facility] [address] [place], [address] Neutrophil percentageOrdered By: Morelia Higgins on 10-12-2024 Neutrophils/100 WBC (Bld) 72.7 % High 47-70 [facility] Comment on above: Performed By: #### L 101.9900, L100.0100, L501.6710, L500.4050 #### [facility] [address] [place], [address] Nucleated red blood cell per centageOrdered By: Morelia Higgins on 10-12-2024 Nucleated RBC/100 WBC (Bld) [Ratio] 0 % 0-5 [facility] Platelet countOrdered By: Gerson Higgins on 10-12-2024 Platelets (Bld) [#/Vol] 338 10*3/uL Normal 150-450 [facility] Comment on above: Performed By: #### L 101.9900, L100.0100, L501.6710, L500.4050 #### [facility] [address] [place], [place], [id number] Potassium measurement (mass/ volume)Ordered By: Morelia Higgins on 10-12-2024 Potassium (Unsp spec) [Mass/Vol] 4.0 mmol/L 3.3-5.1 [facility] Serum creatinine measurement (mass/volume)Ordered By: Morelia Higgins on 10-12-2024 Creatinine [Mass/Vol] 0.90 mg/dL 0.70-1.20 [facility] Serum globulin measurementOr dered By: Morelia Higgins on 10-12-2024 Globulin (S) [Mass/Vol] 2.6 g/dL 2.2-4.2 [facility] Serum glucose measurement (m ass/volume)Ordered By: Morelia Higgins on 10-12-2024 Glucose [Mass/Vol] 99 mg/dL 70-99 [facility] Serum or plasma C reactive p rotein measurement (mass/volume)Ordered By: Morelia Higgins on 10-12-2024 CRP [Mass/Vol] 3.36 mg/L High 0.0-3.0 [facility] Serum or plasma alanine kwok otransferase (ALT) measurementOrdered By: Morelia Higgins on 10-12-2024 ALT [Catalytic activity/Vol] 17 U/L <35 [facility] Serum or plasma albumin josué urement (mass/volume)Ordered By: Morelia Higgins on 10-12-2024 Albumin [Mass/Vol] 3.8 g/dL 3.4-4.8 [facility] Serum or plasma albumin/glob ulin mass ratioOrdered By: Morelia Higgins on 10-12-2024 Albumin/Globulin [Mass ratio] 1.5 {ratio} 0.9-2.4 [facility] Serum or plasma alkaline mike sphatase measurementOrdered By: Morelia Higgins on 10-12-2024 ALP [Catalytic activity/Vol] 83 U/L 35-104 [facility] Serum or plasma calcium josué urement (mass/volume)Ordered By: Morelia Higgins on 10-12-2024 Calcium [Mass/Vol] 9.0 mg/dL 7.6-11.0 [facility] Serum or plasma urea nitroge n measurement (mass/volume)Ordered By: Morelia Higgins on 10-12-2024 Urea nitrogen [Mass/Vol] 19 mg/dL 4-19 [facility] Sodium levelOrdered By: Glenda Higgins on 10-12-2024 Sodium [Moles/Vol] 140 mmol/L 133-145 [facility] Total proteinOrdered By: Niels Higgins on 10-12-2024 Protein [Mass/Vol] 6.3 g/dL 5.9-8.4 [facility] White blood cell (WBC) count Ordered By: Morelia Higgins on 10-12-2024 WBC (Bld) [#/Vol] 8.6 10*3/uL Normal 4.4-11.0 [facility] Comment on above: Performed By: #### L 101.9900, L100.0100, L501.6710, L500.4050 #### [facility] [address] [place], [place], [id number] Urgent Care Visit Reporton 0 10-08-2024 Urgent Care Visit Report [facility] [address], [address] [place], [place] [address] OFFICE VISIT Date of Service: 10/08/24 MR#: [id number] Acct: [id number] Name: PHANI DOMÍNGUEZ #: [id number] : 1940 Provider: GERSON Wright Age/Sex: 83/F Location: [facility] Status: Signed Intake Vital Signs 09/06/24 09:32 [...] Doxycycline she took 2 of the pills. [facility] Medical History Tendinitis of extensor tendon of [...] days ago while hiking with family in [place] and daughter removed the tick herself. Trace tenderness locally without erythema migrans and is requesting a prophylactic antibiotic. No complaints of fever, chills, headache, myalgias, joint pain, neck pain. No [id number] products taken to assist. Otherwise asymptomatic without complaints. ROS Const Constitutional: Positive for other (As above) Exam Const General: cooperative, healthy appearing and no acute distress Nutritional Appearance: average body habitus (more content not included)... Normal [facility] Hemoglobin A1con 09-07-2024 HbA1c (Bld) [Mass fraction] 6.0 % Normal <=5.6 [facility] Comment on above: Performed By: #### L 501.9520, L506.1001, L501.9985 #### [facility] [address] [facility] [id number] Hemoglobin A1c percentageOrd ered By: Cristal Astudillo on 09-07-2024 HbA1c (Bld) [Mass fraction] 6.0 % >5.7 [facility] L506.1001on 09-07-2024 Vitamin D 25-OH 46.9 ng/mL Normal 30-100 [facility] Comment on above: Result Comment: Ysabel min D Status Deficiency: <20 ng/mL (50nmol/L) Insufficiency: 20-30 ng/mL (50-75 nmol/L) Sufficiency: 30-100 ng/mL (75-250 nmol/L) Toxicity: >100 ng/mL (>250 nmol/L) Performed By: #### L 501.9520, L506.1001, L501.9985 #### [facility] [address] [place], [place], [address] TSH DL <= 0.005 mIU/L QnOrde red By: Cristal Astudillo on 09-07-2024 Thyroid Stimulating Hormone (TSH) 2.160 uIU/mL 0.300-4.200 [facility] TSH Qn 2.160 uIU/mL 0.300-4.200 [facility] Thyroid Stim Hormone (TSH)on 09-07-2024 TSH 2.160 uIU/mL Normal 0.300-4.200 [facility] Comment on above: Performed By: #### L 501.9520, L506.1001, L501.9985 #### [facility] [address] [place], [address] Vitamin D, 25-hydroxyOrdered By: Cristal Astudillo on 09-07-2024 Vitamin D 25-Hydroxy 46.9 ng/mL 30-100 [facility] Comment on above: Vitamin D StatusDefi ciency: <20 ng/mL (50nmol/L)Insufficiency: 20-30 ng/mL (50-75 nmol/L)Sufficiency: 30-100 ng/mL (75-250 nmol/L)Toxicity: >100 ng/mL (>250 nmol/L) Cardiology Visit Reporton Cardiology Visit Report [facility] [address] [place] [address] OFFICE VISIT Date of Service: 09/06/24 MR#: [id number] Acct: [id number] Name: PHANI DOMÍNGUEZ Rep #: [id number] : 1940 Provider: Dr. Marcial Moe MD Age/Sex: 83/F Location: [facility] Status: Signed HPI HPI History of [...] Monitor Intake Visit Reasons: 1 Y FU Director Check Required: No Accompanied by: Self Is patient [...] not us (more content not included)... Normal [facility] MR/BMS.Annamarie 08-23-2024 MR/BMS.[facility] [address] [place] [address] OFFICE VISIT Date of Service: 08/23/24 MR#: [id number] Acct: [id number] Name: PHANI DOMÍNGUEZ Rep #: [id number] : 1940 Provider: Dr. Cristal milian MD Age/Sex: 83/F Location: [facility] Status: Signed Intake Vital Signs 08/06/24 07:59 [...] Hand Edema Chief Complaint: Lt hand edema Director Check Required: No Accompanied by: Self Is patient [...] you fallen in the past year?: No [facility] Medical History (Updated 08/23/24 @ 08:38 by [...] night bec (more content not included)... Normal [facility] Breast imaging reportOrdered By: Ced Wallace on 08-16-2024 Study report [facility] Imaging Services [address] [place], [place] [address] SCRN MAMM (CAD)W/IZABELLA BILAT MR#: [id number] Acct: [id number] Name: PHANI DOMÍNGUEZ Rep #: : 1940 F 83 From: Titus Wallace MD PCP: Dr. Cristal Astudillo MD Status: REG CLI Study:SCRN MAMM (CAD)W/IZABELLA BILAT Date of Exa m: 08/16/24 Exam# [id number] Ordering Dr: Cristal Astudillo MD PROCEDURE: SCRN [...] AGUSTIN CC: Dr. Cristal Astudillo MD ~ Order Picker/Assembler: Signed [facility] SCRN MAMM (CAD)W/IZABELLA BILATo n 08-16-2024 SCRN MAMM (CAD)W/IZABELLA BILAT [facility] Imaging Services [address] [place], [place] [id number] SCRN MAMM (CAD)W/IZABELLA BILAT MR#: [id number] Acct: [id number] Name: PHANI DOMÍNGUEZ Rep #: [id number] : 1940 F 83 From: Ced jefferson MD PCP: Dr. Cristal Astudillo MD Status: [facility] Study: SCRN MAMM (CAD)W/IZABELLA BILAT Date of Exam: 12/05 Exam# [id number] Ordering Dr: Cristal Astudillo MD PROCEDURE: SCRN [...] of the results by letter. Reading Location: [facility] CC: Dr. Cristal Astudillo MD Order Picker/Assembler: Signed Normal [facility] MR/BMS.[facility] 08-06-2024 MR/BMS.[facility] [address] [place] [address] OFFICE VISIT Date of Service: 08/06/24 MR#: [id number] Acct: [id number] Name: PHANI DOMÍNGUEZ Rep #: [id number] : 1940 Provider: Dr. 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 She does have prednisone available that she could use periodically for f (more content not included)... Normal [facility] Absolute lymphocyte countOrd ered By: Morelia Higgins on 08-02-2024 Lymphocytes Auto (Unsp spec) [#/Vol] 1.22 10*3/uL 0.83-4.51 [facility] Absolute neutrophil countOrd ered By: Morelia Higgins on 08-02-2024 Neutrophils (Bld) [#/Vol] 5.8 10*3/uL 2.0-7.7 [facility] Albumin to globulin ratioOrd ered By: Morelia Higgins on 08-02-2024 Albumin/Globulin [Mass ratio] 0.9 {ratio} 0.9-2.4 [facility] Automated lymphocyte count a s percentage of total leukocytesOrdered By: Morelia Higgins on 08-02-2024 Lymphocytes/100 WBC Auto (Unsp spec) 15.8 % Low 19-41 [facility] Basophil percentageOrdered B y: Morelia Higgins on 08-02-2024 Basophils/100 WBC (Bld) 0.9 % 0-1 [facility] Bilirubin, totalOrdered By: Morelia Higgins on 08-02-2024 Bilirubin [Mass/Vol] 1.10 mg/dL High 0.20-1.00 [facility] Comment on above: For patients on eltr ombopag therapy, use of Dim[facility] [place] TBIL is not recommended. Blood urea nitrogen (BUN)/cr eatinine ratioOrdered By: Morelia Higgins on 08-02-2024 Urea nitrogen/Creatinine [Mass ratio] 23.7 mg/mg High 10-20 [facility] C-reactive protein measureme nt by high sensitivity methodOrdered By: Morelia Higgins on 08-02-2024 C-Reactive Protein Extended Range 3.22 mg/L High 0.0-3.0 [facility] Comment on above: C-Reactive Protein ( CRP) provides useful information for thediagnosis, therapy and monitoring of inflammatory processesand associated diseases. For the evaluation of Relative Riskfor Cardiovascular Disease, a High Sensitivity CRP (HSCRP)should be ordered. C-reactive protein measurement by high sensitivity method 3.22 mg/L High 0.0-3.0 [facility] Comment on above: C-Reactive Protein ( CRP) provides useful information for thediagnosis, therapy and monitoring of inflammatory processesand associated diseases. For the evaluation of Relative Riskfor Cardiovascular Disease, a High Sensitivity CRP (HSCRP)should be ordered. CBC W/Diff, Automatedon 02-2 0-2024 Absolute Lymph 1.22 X10 3/uL Normal 0.83-4.51 [facility] Comment on above: Performed By: #### L 501.6710, L101.9900, L500.4050, L100.0100 #### [facility] [address] [place], [address] Absolute Neut 5.8 X10 3/uL Normal 2.0-7.7 [facility] Comment on above: Performed By: #### L [id number], L101.9900, L500.4050, L100.0100 #### [facility] [address] [place], [address] Basophils/100 WBC (Bld) 0.9 % Normal 0-1 [facility] Comment on above: Performed By: #### L 501.6710, L101.9900, L500.4050, L100.0100 #### [facility] [address] [place], [address] Eosinophils/100 WBC (Bld) 1.3 % Normal 0-5 [facility] Comment on above: Performed By: #### L [id number], L101.9900, L500.4050, L100.0100 #### [facility] [address] [place], [address] Erythrocyte distribution width (RBC) [Ratio] 13.2 % Normal 11.6-14.6 [facility] Comment on above: Performed By: #### L 501.6710, L101.9900, L500.4050, L100.0100 #### [facility] [address] [place], [address] Hematocrit (Bld) [Volume fraction] 38.2 % Normal 37-47 [facility] Comment on above: Performed By: #### L 501.6710, L101.9900, L500.4050, L100.0100 #### [facility] [address] [place], [address] Hemoglobin (Bld) [Mass/Vol] 12.5 g/dL Normal 12.0-15.0 [facility] Comment on above: Performed By: #### L 501.6710, L101.9900, L500.4050, L100.0100 #### [facility] [address] [place], [address] IG% 0.500 Normal 0.0-0.9 [facility] Comment on above: Result Comment: IG% - Immature Granulocytes (promyelocytes, myelocytes and metamyelocytes) > 1% indicates that a LEFT SHIFT is Present. Performed By: #### L 501.6710, L101.9900, L500.4050, L100.0100 #### [facility] [address] [place], [address] Lymphocytes/100 WBC (Bld) 15.8 % Low 19-41 [facility] Comment on above: Performed By: #### L 501.6710, L101.9900, L500.4050, L100.0100 #### [facility] [address] [place], [address] MCH (RBC) [Entitic mass] 29.5 pg Normal 27.0-32.0 [facility] Comment on above: Performed By: #### L 501.6710, L101.9900, L500.4050, L100.0100 #### [facility] [address] [place], [address] MCHC (RBC) [Mass/Vol] 32.7 g/dL Normal 32-36 [facility] Comment on above: Performed By: #### L 501.6710, L101.9900, L500.4050, L100.0100 #### [facility] [address] [place], [address] MCV (RBC) [Entitic vol] 90.1 fL Normal 81-99 [facility] Comment on above: Performed By: #### L 501.6710, L101.9900, L500.4050, L100.0100 #### [facility] [address] [place], [address] Monocytes/100 WBC (Bld) 7.0 % Normal 0-10 [facility] Comment on above: Performed By: #### L 501.6710, L101.9900, L500.4050, L100.0100 #### [facility] [address] [place], [address] Neutrophils/100 WBC (Bld) 74.5 % High 47-70 [facility] Comment on above: Performed By: #### L 501.6710, L101.9900, L500.4050, L100.0100 #### [facility] [address] [place], [address] Nucleated RBC (Bld) [#/Vol] 0 10*3/uL Normal 0-5 [facility] Comment on above: Performed By: #### L 501.6710, L101.9900, L500.4050, L100.0100 #### [facility] [address] [place], [address] Platelet mean volume (Bld) [Entitic vol] 10.5 fL Normal 6.2-12.0 [facility] Comment on above: Performed By: #### L 501.6710, L101.9900, L500.4050, L100.0100 #### [facility] [address] [place], [address] Platelets (Bld) [#/Vol] 348 10*3/uL Normal 150-450 [facility] Comment on above: Performed By: #### L 501.6710, L101.9900, L500.4050, L100.0100 #### [facility] [address] [place], [address] RBC (Bld) [#/Vol] 4.24 10*6/uL Normal 4.2-5.4 [facility] Comment on above: Performed By: #### L 501.6710, L101.9900, L500.4050, L100.0100 #### [facility] [address] [place], [address] RDW SD 42.7 fl Normal 35.1-43.9 [facility] Comment on above: Performed By: #### L 501.6710, L101.9900, L500.4050, L100.0100 #### [facility] [address] [place], [address] WBC (Bld) [#/Vol] 7.7 10*3/uL Normal 4.4-11.0 [facility] Comment on above: Performed By: #### L 501.6710, L101.9900, L500.4050, L100.0100 #### [facility] [address] [place], [address] CRPon 08-02-2024 C-REACTIVE PROT 3.22 mg/L High 0.0-3.0 [facility] Comment on above: Result Comment: C-Re active Protein (CRP) provides useful information for the diagnosis, therapy and monitoring of inflammatory processes and associated diseases. For the evaluation of Relative Risk for Cardiovascular Disease, a High Sensitivity CRP (HSCRP) should be ordered. Performed By: #### L 501.6710, L101.9900, L500.4050, L100.0100 #### [facility] [address] [place], [address] Carbon dioxide measurementOr dered By: Morelia Higgins on 08-02-2024 CO2 [Moles/Vol] 28.0 mmol/L 21.0-32.0 [facility] Chloride measurementOrdered By: Morelia Higgins on 08-02-2024 Chloride [Moles/Vol] 105 mmol/L 98-107 [facility] Metabolic Prof ilon 08-02-2024 Albumin [Mass/Vol] 3.3 g/dL Normal 3.2-5.0 [facility] Comment on above: Performed By: #### L 501.6710, L101.9900, L500.4050, L100.0100 #### [facility] [address] [place], [address] Albumin/Globulin [Mass ratio] 0.9 {ratio} Normal 0.9-2.4 [facility] Comment on above: Performed By: #### L 501.6710, L101.9900, L500.4050, L100.0100 #### [facility] [address] [place], [address] ALK P 79 U/L Normal 45-117 [facility] Comment on above: Performed By: #### L 501.6710, L101.9900, L500.4050, L100.0100 #### [facility] [address] [place], [address] ALT [Catalytic activity/Vol] 24 U/L Normal 13-56 [facility] Comment on above: Performed By: #### L 501.6710, L101.9900, L500.4050, L100.0100 #### [facility] [address] [place], [address] AST [Catalytic activity/Vol] 19 U/L Normal 15-37 [facility] Comment on above: Performed By: #### L 501.6710, L101.9900, L500.4050, L100.0100 #### [facility] [address] [place], [address] Bilirubin [Mass/Vol] 1.10 mg/dL High 0.20-1.00 [facility] Comment on above: Result Comment: For patients on eltrombopag therapy, use of Dimension [place] TBIL is not recommended. Performed By: #### L 501.6710, L101.9900, L500.4050, L100.0100 #### [facility] [address] [place], [address] BUN/CRE 23.7 RATIO High 10-20 [facility] Comment on above: Performed By: #### L 501.6710, L101.9900, L500.4050, L100.0100 #### [facility] [address] [place], [address] CA,Total 9.2 mg/dL Normal 8.5-10.1 [facility] Comment on above: Performed By: #### L 501.6710, L101.9900, L500.4050, L100.0100 #### [facility] [address] [place], [address] Chloride [Moles/Vol] 105 mmol/L Normal 98-107 [facility] Comment on above: Performed By: #### L 501.6710, L101.9900, L500.4050, L100.0100 #### [facility] [address] [place], [address] CO2 [Moles/Vol] 28.0 mmol/L Normal 21.0-32.0 [facility] Comment on above: Performed By: #### L 501.6710, L101.9900, L500.4050, L100.0100 #### [facility] [address] [place], [address] Creatinine [Mass/Vol] 0.93 mg/dL Normal 0.55-1.02 [facility] Comment on above: Result Comment: The validity of the calculated GFR GFRAA in patients over 70 years has not been determined. Clinical correlation is essential. Performed By: #### L 501.6710, L101.9900, L500.4050, L100.0100 #### [facility] [address] [place], [address] EST GFR - AA 75 mL/min Normal >60 [facility] Comment on above: Result Comment: Afri can Anguillan GFR Calc Performed By: #### L 501.6710, L101.9900, L500.4050, L100.0100 #### [facility] [address] [place], [address] GAP 5 Normal 5-15 [facility] Comment on above: Performed By: #### L 501.6710, L101.9900, L500.4050, L100.0100 #### [facility] [address] [place], [address] GFR/1.73 sq M.predicted among non-blacks MDRD (S/P/Bld) [Vol rate/Area] 62 mL/min/{1.73_m2} Normal >60 [facility] Comment on above: Result Comment: Non- GFR Calc Performed By: #### L 501.6710, L101.9900, L500.4050, L100.0100 #### [facility] [address] [place], [address] Globulin (S) [Mass/Vol] 3.5 g/dL Normal 2.2-4.2 [facility] Comment on above: Performed By: #### L 501.6710, L101.9900, L500.4050, L100.0100 #### [facility] [address] [place], [address] Glucose [Mass/Vol] 114 mg/dL High 74-106 [facility] Comment on above: Result Comment: Fast ing Glucose result from 100 to 125 mg/dL suggests IMPAIRED HOMEOSTASIS per A.D.A. criteria. Performed By: #### L 501.6710, L101.9900, L500.4050, L100.0100 #### [facility] [address] [place], [address] Potassium [Moles/Vol] 4.2 mmol/L Normal 3.5-5.1 [facility] Comment on above: Performed By: #### L 501.6710, L101.9900, L500.4050, L100.0100 #### [facility] [address] [place], [address] Sodium [Moles/Vol] 138 mmol/L Normal 136-145 [facility] Comment on above: Performed By: #### L 501.6710, L101.9900, L500.4050, L100.0100 #### [facility] [address] [place], [address] T PROT 6.8 g/dL Normal 6.4-8.2 [facility] Comment on above: Performed By: #### L 501.6710, L101.9900, L500.4050, L100.0100 #### [facility] [address] [place], [address] Urea nitrogen [Mass/Vol] 22 mg/dL High 7-18 [facility] Comment on above: Performed By: #### L 501.6710, L101.9900, L500.4050, L100.0100 #### [facility] [address] [place], [address] Eosinophil percentageOrdered By: Morelia Higgins on 08-02-2024 Eosinophils/100 WBC (Bld) 1.3 % 0-5 [facility] Erythrocyte Sed Rateon 08-02 SED RATE 3 mm/hr Normal 0-30 [facility] Comment on above: Performed By: #### L 501.6710, L101.9900, L500.4050, L100.0100 #### [facility] [place], [address] Erythrocyte distribution wid th ratioOrdered By: Morelia Higgins on 08-02-2024 Erythrocyte distribution width (RBC) [Ratio] 13.2 % 11.6-14.6 [facility] Erythrocyte distribution wid th standard deviationOrdered By: Morelia Higgins on 08-02-2024 Erythrocyte distribution width (RBC) [Entitic vol] 42.7 fL 35.1-43.9 [facility] Erythrocyte distribution width (RBC) [Ratio] 42.7 fl 35.1-43.9 [facility] Erythrocyte sedimentation ra teOrdered By: Morelia Higgins on 08-02-2024 ESR (Bld) [Velocity] 3 mm/h 0-30 [facility] Estimated glomerular filtrat ion rate (GFR) AmericanOrdered By: Morelia Higgins on 08-02-2024 Estimated GFR (MDRD) Amer 75 mL/min >60 [facility] Comment on above: GFR Calc Glomerular filtration rate ( GFR) estimationOrdered By: Morelia Higgins on 08-02-2024 Estimated GFR (MDRD) Non-Af Amer 62 mL/min >60 [facility] Comment on above: Non- GFR Calc GFR/1.73 sq M.predicted among non-blacks MDRD (S/P/Bld) [Vol rate/Area] 62 mL/min/{1.73_m2} >60 [facility] Comment on above: Non- GFR Calc Glucose measurementOrdered B y: Morelia Higgins on 08-02-2024 Glucose [Mass/Vol] 114 mg/dL High 74-106 [facility] Comment on above: Fasting Glucose resu lt from 100 to 125 mg/dL suggests IMPAIRED HOMEOSTASIS per A.D.A. criteria. Hematocrit Auto (Bld) [Volum e fraction]Ordered By: Morelia Higgins on 08-02-2024 Hematocrit (Bld) [Volume fraction] 38.2 % 37-47 [facility] Hemoglobin measurementOrdere d By: Morelia Higgins on 08-02-2024 Hemoglobin (Bld) [Mass/Vol] 12.5 g/dL 12.0-15.0 [facility] Immature granulocytes/100 WB C Auto (Bld)Ordered By: Morelia Higgins on 08-02-2024 Immature granulocytes/100 WBC (Bld) 0.500 % 0.0-0.9 [facility] Comment on above: IG% - Immature Granu locytes (promyelocytes, myelocytes and metamyelocytes) > 1% indicates that a LEFT SHIFT is Present. Laboratory - Chemistry and C hemistry - challengeOrdered By: Morelia Higgins on 08-02-2024 AST [Catalytic activity/Vol] 19 U/L 15-37 [facility] Lymphocytes Auto (Unsp spec) [#/Vol]Ordered By: Morelia Higgins on 08-02-2024 Lymphocytes (Bld) [#/Vol] 1.22 10*3/uL 0.83-4.51 [facility] Lymphocytes/100 WBC Auto (Un sp spec)Ordered By: Morelia Higgins on 08-02-2024 Lymphocytes/100 WBC (Bld) 15.8 % Low 19-41 [facility] MCV (mean corpuscular volume ) determinationOrdered By: Morelia Higgins on 08-02-2024 MCV (RBC) [Entitic vol] 90.1 fL 81-99 [facility] Mean corpuscular hemoglobin (MCH) determinationOrdered By: Morelia Higgins on 08-02-2024 MCH (RBC) [Entitic mass] 29.5 pg 27.0-32.0 [facility] Mean corpuscular hemoglobin concentration (MCHC) determinationOrdered By: Morelia Higgins on 08-02-2024 MCHC (RBC) [Mass/Vol] 32.7 g/dL 32-36 [facility] Mean platelet volume determi nationOrdered By: Morelia Higgins on 08-02-2024 Platelet mean volume (Bld) [Entitic vol] 10.5 fL 6.2-12.0 [facility] Monocyte percentageOrdered B y: Morelia Higgins on 08-02-2024 Monocytes/100 WBC (Bld) 7.0 % 0-10 [facility] Neutrophil percentageOrdered By: Morelia Higgins on 02-20-2025 Neutrophils/100 WBC (Bld) 74.5 % High 47-70 [facility] Nucleated red blood cell per centageOrdered By: Morelia Higgins on 08-02-2024 Nucleated RBC/100 WBC (Bld) [Ratio] 0 % 0-5 [facility] Platelet countOrdered By: Gerson Higgins on 08-02-2024 Platelets (Bld) [#/Vol] 348 10*3/uL 150-450 [facility] Potassium measurementOrdered By: Morelia Higgins on 08-02-2024 Potassium [Moles/Vol] 4.2 mmol/L 3.5-5.1 [facility] RBC Auto (Bld) [#/Vol]Ordere d By: Morelia Hgigins on 08-02-2024 RBC (Bld) [#/Vol] 4.24 10*6/uL 4.2-5.4 [facility] Serum anion gap measurementO rdered By: Morelia Higgins on 08-02-2024 Anion gap [Moles/Vol] 5 mmol/L 5-15 [facility] Serum globulin measurementOr dered By: Morelia Higgins on 08-02-2024 Globulin (S) [Mass/Vol] 3.5 g/dL 2.2-4.2 [facility] Serum or plasma alanine kwok otransferase (ALT) measurementOrdered By: Morelia Higgins on 08-02-2024 ALT [Catalytic activity/Vol] 24 U/L 13-56 [facility] Serum or plasma albumin josué urement (mass/volume)Ordered By: Morelia Higgins on 08-02-2024 Albumin [Mass/Vol] 3.3 g/dL 3.2-5.0 [facility] Serum or plasma alkaline mike sphatase measurementOrdered By: Morelia Higgins on 08-02-2024 ALP [Catalytic activity/Vol] 79 U/L 45-117 [facility] Serum or plasma calcium josué urement (mass/volume)Ordered By: Morelia Higgins on 08-02-2024 Calcium [Mass/Vol] 9.2 mg/dL 8.5-10.1 [facility] Serum or plasma creatinine m easurement (mass/volume)Ordered By: Morelia Higgins on 08-02-2024 Creatinine [Mass/Vol] 0.93 mg/dL 0.55-1.02 [facility] Comment on above: The validity of the calculated GFR & GFRAA in patients over 70 years has not been determined. Clinical correlation is essential. Serum or plasma urea nitroge n measurement (mass/volume)Ordered By: Morelia Higgins on 08-02-2024 Urea nitrogen [Mass/Vol] 22 mg/dL High 7-18 [facility] Sodium levelOrdered By: Glenda Higgins on 08-02-2024 Sodium [Moles/Vol] 138 mmol/L 136-145 [facility] Total proteinOrdered By: Niels Higgins on 08-02-2024 Protein [Mass/Vol] 6.8 g/dL 6.4-8.2 [facility] White blood cell (WBC) count Ordered By: Morelia Higgins on 08-02-2024 WBC (Bld) [#/Vol] 7.7 10*3/uL 4.4-11.0 [facility] Bilirubin directOrdered By: Sathish Brewster on 06-22-2024 Bilirubin.direct [Mass/Vol] 0.14 mg/dL 0.00-0.30 [facility] Bilirubin, totalOrdered By: Sathish Brewster on 06-22-2024 Bilirubin [Mass/Vol] 0.90 mg/dL 0.20-1.00 [facility] Comment on above: For patients on eltr ombopag therapy, use of Dimension [place] TBIL is not recommended. High density lipoprotein (HD L) measurementOrdered By: Sathish Brewster on 06-22-2024 Cholesterol in HDL [Mass/Vol] 53 mg/dL >40 [facility] Comment on above: The drugs N-Acetylcy steine and Metamizole may falsely depress this assay. Reference Range HDL <40 mg/dL Low HDL Cholesterol HDL >or= 60 mg/dL High HDL Cholesterol Laboratory - Chemistry and C hemistry - challengeOrdered By: Sathish Brewster on 06-22-2024 AST [Catalytic activity/Vol] 15 U/L 15-37 [facility] Lipid Profileon 06-22-2024 Cholesterol [Mass/Vol] 229 mg/dL High 200 [facility] Comment on above: Result Comment: <200 mg/dL Desirable 200-240 mg/dL Borderline >240 mg/dL High Risk Performed By: #### L 501.6710, L101.9900, L500.4050, L100.0100 #### [facility] [address] [place], [address] Cholesterol in HDL [Mass/Vol] 53 mg/dL Normal [facility] Comment on above: Result Comment: The drugs N-Acetylcysteine and Metamizole may falsely depress this assay. Reference Range HDL <40 mg/dL Low HDL Cholesterol HDL >or= 60 mg/dL High HDL Cholesterol Performed By: #### L 501.6710, L101.9900, L500.4050, L100.0100 #### [facility] [address] [place], [address] Cholesterol in LDL [Mass/Vol] 151 mg/dL High 0-130 [facility] Comment on above: Performed By: #### L 501.6710, L101.9900, L500.4050, L100.0100 #### [facility] [address] [place], [address] Cholesterol in VLDL [Mass/Vol] 25 mg/dL Normal 5-40 [facility] Comment on above: Performed By: #### L 501.6710, L101.9900, L500.4050, L100.0100 #### [facility] [address] [place], [address] Triglyceride [Mass/Vol] 127 mg/dL Normal [facility] Comment on above: Result Comment: The drugs N-Acetylcysteine and Metamizole may falsely depress this assay. Serum Triglycerides Reference Interval Normal <150 mg/dL Borderline high 150 - 199 mg/dL High 200 - 499 mg/dL Very High > or = 500 mg/dL Performed By: #### L 501.6710, L101.9900, L500.4050, L100.0100 #### [facility] [address] [place], [address] Liver Profileon 06-22-2024 Albumin [Mass/Vol] 3.1 g/dL Low 3.2-5.0 [facility] Comment on above: Performed By: #### L 501.6710, L101.9900, L500.4050, L100.0100 #### [facility] [address] [place], [address] ALK P 86 U/L Normal 45-117 [facility] Comment on above: Performed By: #### L 501.6710, L101.9900, L500.4050, L100.0100 #### [facility] [address] [place], [address] ALT [Catalytic activity/Vol] 22 U/L Normal 13-56 [facility] Comment on above: Performed By: #### L 501.6710, L101.9900, L500.4050, L100.0100 #### [facility] [address] [place], [address] AST [Catalytic activity/Vol] 15 U/L Normal 15-37 [facility] Comment on above: Performed By: #### L 501.6710, L101.9900, L500.4050, L100.0100 #### [facility] [address] [place], [address] Bilirubin [Mass/Vol] 0.90 mg/dL Normal 0.20-1.00 [facility] Comment on above: Result Comment: For patients on eltrombopag therapy, use of Dimension [place] TBIL is not recommended. Performed By: #### L 501.6710, L101.9900, L500.4050, L100.0100 #### [facility] [address] [place], [address] Bilirubin.direct [Mass/Vol] 0.14 mg/dL Normal 0.00-0.30 [facility] Comment on above: Performed By: #### L 501.6710, L101.9900, L500.4050, L100.0100 #### [facility] [address] [place], [address] Globulin (S) [Mass/Vol] 3.4 g/dL Normal 2.2-4.2 [facility] Comment on above: Performed By: #### L 501.6710, L101.9900, L500.4050, L100.0100 #### [facility] [address] [place], [address] T PROT 6.5 g/dL Normal 6.4-8.2 [facility] Comment on above: Performed By: #### L 501.6710, L101.9900, L500.4050, L100.0100 #### [facility] [address] [place], [address] Low density lipoprotein (LDL ) cholesterol measurementOrdered By: Sathish Brewster on 06-22-2024 Cholesterol in LDL [Mass/Vol] 151 mg/dL High 0-130 [facility] Serum globulin measurementOr dered By: Sathish Brewster on 06-22-2024 Globulin (S) [Mass/Vol] 3.4 g/dL 2.2-4.2 [facility] Serum or plasma alanine kwok otransferase (ALT) measurementOrdered By: Sathish Brewster on 06-22-2024 ALT [Catalytic activity/Vol] 22 U/L 13-56 [facility] Serum or plasma albumin josué urement (mass/volume)Ordered By: Sathish Brewster on 06-22-2024 Albumin [Mass/Vol] 3.1 g/dL Low 3.2-5.0 [facility] Serum or plasma alkaline mike sphatase measurementOrdered By: Sathish Brewster on 06-22-2024 ALP [Catalytic activity/Vol] 86 U/L 45-117 [facility] Serum or plasma cholesterol measurement (mass/volume)Ordered By: Sathish Brewster on 06-22-2024 Cholesterol [Mass/Vol] 229 mg/dL High <200 [facility] Comment on above: <200 mg/dL Desirable 200-240 mg/dL Borderline >240 mg/dL High Risk Total proteinOrdered By: Blair Brewster on 06-22-2024 Protein [Mass/Vol] 6.5 g/dL 6.4-8.2 [facility] Triglycerides measurementOrd ered By: Sathish Brewster on 06-22-2024 Triglyceride [Mass/Vol] 127 mg/dL <199 [facility] Comment on above: The drugs N-Acetylcy steine and Metamizole may falsely depress this assay.Serum Triglycerides Reference Interval Normal <150 mg/dL Borderline high 150 - 199 mg/dL High 200 - 499 mg/dL Very High > or = 500 mg/dL Very low density lipoprotein (VLDL) cholesterol measurementOrdered By: Sathish Brewster on 06-22-2024 Very low density lipoprotein (VLDL) cholesterol measurement 25 mg/dL 5-40 [facility] VLDL Cholesterol 25 mg/dL 5-40 [facility] Absolute neutrophil countOrd ered By: Morelia Higgins on 05-08-2024 Neutrophils (Bld) [#/Vol] 5.2 10*3/uL 2.0-7.7 [facility] Albumin to globulin ratioOrd ered By: Morelia Higgins on 05-08-2024 Albumin/Globulin [Mass ratio] 0.9 {ratio} 0.9-2.4 [facility] Basophil percentageOrdered B y: Morleia Higgins on 05-08-2024 Basophils/100 WBC (Bld) 0.8 % 0-1 [facility] Bilirubin, totalOrdered By: Morelia Higgins on 05-08-2024 Bilirubin [Mass/Vol] 0.70 mg/dL 0.20-1.00 [facility] Comment on above: For patients on eltr ombopag therapy, use of Dimension [place] TBIL is not recommended. Blood urea nitrogen (BUN)/cr eatinine ratioOrdered By: Morelia Higgins on 05-08-2024 Urea nitrogen/Creatinine [Mass ratio] 20.5 mg/mg High 10-20 [facility] C-reactive protein measureme nt by high sensitivity methodOrdered By: Morelia Higgins on 05-08-2024 C-Reactive Protein Extended Range 8.25 mg/L High 0.0-3.0 [facility] Comment on above: C-Reactive Protein ( CRP) provides useful information for thediagnosis, therapy and monitoring of inflammatory processesand associated diseases. For the evaluation of Relative Riskfor Cardiovascular Disease, a High Sensitivity CRP (HSCRP)should be ordered. CBC W/Diff, Automatedon 11-2 Absolute Lymph 1.03 X10 3/uL Normal 0.83-4.51 [facility] Comment on above: Performed By: #### L 501.6710, L101.9900, L500.4050, L100.0100 #### [facility] [address] [place], [address] Absolute Neut 5.2 X10 3/uL Normal 2.0-7.7 [facility] Comment on above: Performed By: #### L 501.6710, L101.9900, L500.4050, L100.0100 #### [facility] [address] [place], [address] Basophils/100 WBC (Bld) 0.8 % Normal 0-1 [facility] Comment on above: Performed By: #### L 501.6710, L101.9900, L500.4050, L100.0100 #### [facility] [address] [place], [address] Eosinophils/100 WBC (Bld) 2.5 % Normal 0-5 [facility] Comment on above: Performed By: #### L 501.6710, L101.9900, L500.4050, L100.0100 #### [facility] [address] [place], [address] Erythrocyte distribution width (RBC) [Ratio] 12.3 % Normal 11.6-14.6 [facility] Comment on above: Performed By: #### L 501.6710, L101.9900, L500.4050, L100.0100 #### [facility] [address] [place], [address] Hematocrit (Bld) [Volume fraction] 39.9 % Normal 37-47 [facility] Comment on above: Performed By: #### L 501.6710, L101.9900, L500.4050, L100.0100 #### [facility] [address] [place], [address] Hemoglobin (Bld) [Mass/Vol] 12.6 g/dL Normal 12.0-15.0 [facility] Comment on above: Performed By: #### L 501.6710, L101.9900, L500.4050, L100.0100 #### [facility] [address] [place], [address] IG% 0.400 Normal 0.0-0.9 [facility] Comment on above: Result Comment: IG% - Immature Granulocytes (promyelocytes, myelocytes and metamyelocytes) > 1% indicates that a LEFT SHIFT is Present. Performed By: #### L 501.6710, L101.9900, L500.4050, L100.0100 #### [facility] [address] [place], [address] Lymphocytes/100 WBC (Bld) 14.5 % Low 19-41 [facility] Comment on above: Performed By: #### L 501.6710, L101.9900, L500.4050, L100.0100 #### [facility] [address] [place], [address] MCH (RBC) [Entitic mass] 28.4 pg Normal 27.0-32.0 [facility] Comment on above: Performed By: #### L 501.6710, L101.9900, L500.4050, L100.0100 #### [facility] [address] [place], [address] MCHC (RBC) [Mass/Vol] 31.6 g/dL Low 32-36 [facility] Comment on above: Performed By: #### L 501.6710, L101.9900, L500.4050, L100.0100 #### [facility] [address] [place], [address] MCV (RBC) [Entitic vol] 89.9 fL Normal 81-99 [facility] Comment on above: Performed By: #### L 501.6710, L101.9900, L500.4050, L100.0100 #### [facility] [address] [place], [address] Monocytes/100 WBC (Bld) 9.0 % Normal 0-10 [facility] Comment on above: Performed By: #### L 501.6710, L101.9900, L500.4050, L100.0100 #### [facility] [address] [place], [address] Neutrophils/100 WBC (Bld) 72.8 % High 47-70 [facility] Comment on above: Performed By: #### L 501.6710, L101.9900, L500.4050, L100.0100 #### [facility] [address] [place], [address] Nucleated RBC (Bld) [#/Vol] 0 10*3/uL Normal 0-5 [facility] Comment on above: Performed By: #### L 501.6710, L101.9900, L500.4050, L100.0100 #### [facility] [address] [place], [address] Platelet mean volume (Bld) [Entitic vol] 10.4 fL Normal 6.2-12.0 [facility] Comment on above: Performed By: #### L 501.6710, L101.9900, L500.4050, L100.0100 #### [facility] [address] [place], [address] Platelets (Bld) [#/Vol] 340 10*3/uL Normal 150-450 [facility] Comment on above: Performed By: #### L 501.6710, L101.9900, L500.4050, L100.0100 #### [facility] [address] [place], [address] RBC (Bld) [#/Vol] 4.44 10*6/uL Normal 4.2-5.4 [facility] Comment on above: Performed By: #### L 501.6710, L101.9900, L500.4050, L100.0100 #### [facility] [address] [place], [address] RDW SD 40.5 fl Normal 35.1-43.9 [facility] Comment on above: Performed By: #### L 501.6710, L101.9900, L500.4050, L100.0100 #### [facility] [address] [place], [address] WBC (Bld) [#/Vol] 7.1 10*3/uL Normal 4.4-11.0 [facility] Comment on above: Performed By: #### L 501.6710, L101.9900, L500.4050, L100.0100 #### [facility] [address] [place], [address] CRPon 05-08-2024 C-REACTIVE PROT 8.25 mg/L High 0.0-3.0 [facility] Comment on above: Result Comment: C-Re active Protein (CRP) provides useful information for the diagnosis, therapy and monitoring of inflammatory processes and associated diseases. For the evaluation of Relative Risk for Cardiovascular Disease, a High Sensitivity CRP (HSCRP) should be ordered. Performed By: #### L 501.6710, L101.9900, L500.4050, L100.0100 #### [facility] [address] [place], [address] Carbon dioxide measurementOr dered By: Morelia Higgins on 05-08-2024 CO2 [Moles/Vol] 29.0 mmol/L 21.0-32.0 [facility] Chloride measurementOrdered By: Morelia Higgins on 05-08-2024 Chloride [Moles/Vol] 106 mmol/L 98-107 [facility] Comprehensive Metabolic Prof ilon 05-08-2024 Albumin [Mass/Vol] 3.1 g/dL Low 3.2-5.0 [facility] Comment on above: Performed By: #### L 501.6710, L101.9900, L500.4050, L100.0100 #### [facility] [address] [place], [address] Albumin/Globulin [Mass ratio] 0.9 {ratio} Normal 0.9-2.4 [facility] Comment on above: Performed By: #### L 501.6710, L101.9900, L500.4050, L100.0100 #### [facility] [address] [place], [address] ALK P 91 U/L Normal 45-117 [facility] Comment on above: Performed By: #### L 501.6710, L101.9900, L500.4050, L100.0100 #### [facility] [address] [place], [address] ALT [Catalytic activity/Vol] 22 U/L Normal 13-56 [facility] Comment on above: Performed By: #### L 501.6710, L101.9900, L500.4050, L100.0100 #### [facility] [address] [place], [address] AST [Catalytic activity/Vol] 12 U/L Low 15-37 [facility] Comment on above: Performed By: #### L 501.6710, L101.9900, L500.4050, L100.0100 #### [facility] [address] [place], [address] Bilirubin [Mass/Vol] 0.70 mg/dL Normal 0.20-1.00 [facility] Comment on above: Result Comment: For patients on eltrombopag therapy, use of Dimension [place] TBIL is not recommended. Performed By: #### L 501.6710, L101.9900, L500.4050, L100.0100 #### [facility] [address] [place], [address] BUN/CRE 20.5 RATIO High 10-20 [facility] Comment on above: Performed By: #### L 501.6710, L101.9900, L500.4050, L100.0100 #### [facility] [address] [place], [address] CA,Total 9.1 mg/dL Normal 8.5-10.1 [facility] Comment on above: Performed By: #### L 501.6710, L101.9900, L500.4050, L100.0100 #### [facility] [address] [place], [address] Chloride [Moles/Vol] 106 mmol/L Normal 98-107 [facility] Comment on above: Performed By: #### L 501.6710, L101.9900, L500.4050, L100.0100 #### [facility] [address] [place], [address] CO2 [Moles/Vol] 29.0 mmol/L Normal 21.0-32.0 [facility] Comment on above: Performed By: #### L 501.6710, L101.9900, L500.4050, L100.0100 #### [facility] [address] [place], [address] Creatinine [Mass/Vol] 0.83 mg/dL Normal 0.55-1.02 [facility] Comment on above: Result Comment: The validity of the calculated GFR GFRAA in patients over 70 years has not been determined. Clinical correlation is essential. Performed By: #### L 501.6710, L101.9900, L500.4050, L100.0100 #### [facility] [address] [place], [address] EST GFR - AA 85 mL/min Normal >60 [facility] Comment on above: Result Comment: Afri can Anguillan GFR Calc Performed By: #### L 501.6710, L101.9900, L500.4050, L100.0100 #### [facility] [address] [place], [address] GAP 4 Low 5-15 [facility] Comment on above: Performed By: #### L 501.6710, L101.9900, L500.4050, L100.0100 #### [facility] [address] [place], [address] GFR/1.73 sq M.predicted among non-blacks MDRD (S/P/Bld) [Vol rate/Area] 70 mL/min/{1.73_m2} Normal >60 [facility] Comment on above: Result Comment: Non- GFR Calc Performed By: #### L 501.6710, L101.9900, L500.4050, L100.0100 #### [facility] [address] [place], [address] Globulin (S) [Mass/Vol] 3.5 g/dL Normal 2.2-4.2 [facility] Comment on above: Performed By: #### L 501.6710, L101.9900, L500.4050, L100.0100 #### [facility] [address] [place], [address] Glucose [Mass/Vol] 116 mg/dL High 74-106 [facility] Comment on above: Result Comment: Fast ing Glucose result from 100 to 125 mg/dL suggests IMPAIRED HOMEOSTASIS per A.D.A. criteria. Performed By: #### L 501.6710, L101.9900, L500.4050, L100.0100 #### [facility] [address] [place], [address] Potassium [Moles/Vol] 4.4 mmol/L Normal 3.5-5.1 [facility] Comment on above: Performed By: #### L 501.6710, L101.9900, L500.4050, L100.0100 #### [facility] [address] [place], [address] Sodium [Moles/Vol] 138 mmol/L Normal 136-145 [facility] Comment on above: Performed By: #### L 501.6710, L101.9900, L500.4050, L100.0100 #### [facility] [address] [place], [address] T PROT 6.6 g/dL Normal 6.4-8.2 [facility] Comment on above: Performed By: #### L 501.6710, L101.9900, L500.4050, L100.0100 #### [facility] [address] [place], [address] Urea nitrogen [Mass/Vol] 17 mg/dL Normal 7-18 [facility] Comment on above: Performed By: #### L 501.6710, L101.9900, L500.4050, L100.0100 #### [facility] [address] [place], [address] Eosinophil percentageOrdered By: Morelia Higgins on 05-08-2024 Eosinophils/100 WBC (Bld) 2.5 % 0-5 [facility] Erythrocyte Sed Rateon 05-08 SED RATE 6 mm/hr Normal 0-30 [facility] Comment on above: Performed By: #### L 501.6710, L101.9900, L500.4050, L100.0100 #### [facility] [address] [place], [address] Erythrocyte distribution wid th ratioOrdered By: Morelia Higgins on 05-08-2024 Erythrocyte distribution width (RBC) [Ratio] 12.3 % 11.6-14.6 [facility] Erythrocyte distribution wid th standard deviationOrdered By: Moreliasusana Higgins on 05-08-2024 Erythrocyte distribution width (RBC) [Entitic vol] 40.5 fL 35.1-43.9 [facility] Erythrocyte sedimentation ra teOrdered By: Morelia Higgins on 05-08-2024 ESR (Bld) [Velocity] 6 mm/h 0-30 [facility] Estimated glomerular filtrat ion rate (GFR) AmericanOrdered By: Morelia Higgins on 05-08-2024 Estimated GFR (MDRD) Amer 85 mL/min >60 [facility] Comment on above: GFR Calc Glomerular filtration rate ( GFR) estimationOrdered By: Morelia Higgins on 05-08-2024 Estimated GFR (MDRD) Non-Af Amer 70 mL/min >60 [facility] Comment on above: Non- GFR Calc Glucose measurementOrdered B y: Morelia Higgins on 05-08-2024 Glucose [Mass/Vol] 116 mg/dL High 74-106 [facility] Comment on above: Fasting Glucose resu lt from 100 to 125 mg/dL suggests IMPAIRED HOMEOSTASIS per A.D.A. criteria. Hematocrit Auto (Bld) [Volum e fraction]Ordered By: Morelia Higgins on 05-08-2024 Hematocrit (Bld) [Volume fraction] 39.9 % 37-47 [facility] Hemoglobin measurementOrdere d By: Morelia Higgins on 05-08-2024 Hemoglobin (Bld) [Mass/Vol] 12.6 g/dL 12.0-15.0 [facility] Immature granulocytes/100 WB C Auto (Bld)Ordered By: Morelia Higgins on 05-08-2024 Immature granulocytes/100 WBC (Bld) 0.400 % 0.0-0.9 [facility] Comment on above: IG% - Immature Granu locytes (promyelocytes, myelocytes and metamyelocytes) > 1% indicates that a LEFT SHIFT is Present. Laboratory - Chemistry and C hemistry - challengeOrdered By: Morelia Higgins on 05-08-2024 AST [Catalytic activity/Vol] 12 U/L Low 15-37 [facility] Lymphocytes Auto (Unsp spec) [#/Vol]Ordered By: Morelia Higgins on 05-08-2024 Lymphocytes (Bld) [#/Vol] 1.03 10*3/uL 0.83-4.51 [facility] Lymphocytes/100 WBC Auto (Un sp spec)Ordered By: Morelia Higgins on 05-08-2024 Lymphocytes/100 WBC (Bld) 14.5 % Low 19-41 [facility] MCV (mean corpuscular volume ) determinationOrdered By: Morelia Higgins on 05-08-2024 MCV (RBC) [Entitic vol] 89.9 fL 81-99 [facility] Mean corpuscular hemoglobin (MCH) determinationOrdered By: Morelia Higgins on 05-08-2024 MCH (RBC) [Entitic mass] 28.4 pg 27.0-32.0 [facility] Mean corpuscular hemoglobin concentration (MCHC) determinationOrdered By: Morelia Higgins on 05-08-2024 MCHC (RBC) [Mass/Vol] 31.6 g/dL Low 32-36 [facility] Mean platelet volume determi nationOrdered By: Morelia Higgins on 05-08-2024 Platelet mean volume (Bld) [Entitic vol] 10.4 fL 6.2-12.0 [facility] Monocyte percentageOrdered B y: Morelia Higgins on 05-08-2024 Monocytes/100 WBC (Bld) 9.0 % 0-10 [facility] Neutrophil percentageOrdered By: Morelia Higgins on 05-08-2024 Neutrophils/100 WBC (Bld) 72.8 % High 47-70 [facility] Nucleated red blood cell per centageOrdered By: Morelia Higgins on 05-08-2024 Nucleated RBC/100 WBC (Bld) [Ratio] 0 % 0-5 [facility] Platelet countOrdered By: Gerson Higgins on 05-08-2024 Platelets (Bld) [#/Vol] 340 10*3/uL 150-450 [facility] Potassium measurementOrdered By: Morelia Higgins on 05-08-2024 Potassium [Moles/Vol] 4.4 mmol/L 3.5-5.1 [facility] RBC Auto (Bld) [#/Vol]Ordere d By: Morelia Higgins on 05-08-2024 RBC (Bld) [#/Vol] 4.44 10*6/uL 4.2-5.4 [facility] Serum anion gap measurementO rdered By: Morelia Higgins on 05-08-2024 Anion gap [Moles/Vol] 4 mmol/L Low 5-15 [facility] Serum globulin measurementOr dered By: Morelia Higgins on 05-08-2024 Globulin (S) [Mass/Vol] 3.5 g/dL 2.2-4.2 [facility] Serum or plasma alanine kwok otransferase (ALT) measurementOrdered By: Morelia Higgins on 05-08-2024 ALT [Catalytic activity/Vol] 22 U/L 13-56 [facility] Serum or plasma albumin josué urement (mass/volume)Ordered By: Morelia Higgins on 05-08-2024 Albumin [Mass/Vol] 3.1 g/dL Low 3.2-5.0 [facility] Serum or plasma alkaline mike sphatase measurementOrdered By: Morelia Higgins on 05-08-2024 ALP [Catalytic activity/Vol] 91 U/L 45-117 [facility] Serum or plasma calcium josué urement (mass/volume)Ordered By: Morelia Higgins on 05-08-2024 Calcium [Mass/Vol] 9.1 mg/dL 8.5-10.1 [facility] Serum or plasma creatinine m easurement (mass/volume)Ordered By: Morelia Higgins on 05-08-2024 Creatinine [Mass/Vol] 0.83 mg/dL 0.55-1.02 [facility] Comment on above: The validity of the calculated GFR & GFRAA in patients over 70 years has not been determined. Clinical correlation is essential. Serum or plasma urea nitroge n measurement (mass/volume)Ordered By: Morelia Higgins on 05-08-2024 Urea nitrogen [Mass/Vol] 17 mg/dL 7-18 [facility] Sodium levelOrdered By: Glenda Higgins on 05-08-2024 Sodium [Moles/Vol] 138 mmol/L 136-145 [facility] Total proteinOrdered By: Niels Higgins on 05-08-2024 Protein [Mass/Vol] 6.6 g/dL 6.4-8.2 [facility] White blood cell (WBC) count Ordered By: Morelia Higgins on 05-08-2024 WBC (Bld) [#/Vol] 7.1 10*3/uL 4.4-11.0 [facility] Stress Reporton 03-28-2024 Stress Report [facility] [address] [place] [id number] MR#: [id number] Acct: [id number] Name: PHANI DOMÍNGUEZ Rep #: [id number] : 1940 83 From: Marcial Moe MD Primary Care: Dr. Cristal Astudillo MD Status: REG CLI Referring Dr: Sathish Brewster NP CIGAR HEAD PERFORATOR-C Sex: F C Stress Test Report Exercise [...] 03/28/24 1234 Date Marcial Moe MD CC: CIGAR HEAD PERFORATOR-C Sathish Brewster; Dr. Cristal Astudillo MD Date Dictated: 03/28/241231 Date Transcribed: 03/28/241231 Order Picker/Assembler: CO Signed Normal [facility] 12 Lead EKG performed by [facility] on 03-07-2024 12 Lead EKG performed by [address] [address] 12 Lead EKG performed by [facility] 03/07/24 0731 MR#: [id number] Acct: [id number] Name: PHANI DOMÍNGUEZ Rep #: [id number] : 1940 83 From: Sathish Brewster NP CIGAR HEAD PERFORATOR-C Attending Dr: EDDIE Morales Status: DEP AMB Ordering Dr: Sathish Brewster NP CIGAR HEAD PERFORATOR-C Date: 03/07/24 Location: [facility] Sex: F C Admitted: [facility]/12 Lead EKG performed by [facility] ECG Report Interpretation ---Sinus Rhythm WITHIN NORMAL LIMITSElectronically signed on 03/09/2024 at 07:43 by Marcial Moe Software Version [id number] 03/09/24 0744 Date Sathish MORGAN CC: Dr. Cristal Astudillo MD Date Dictated: 03/07/24730 Date Transcribed: 03/07/24730 Order Picker/Assembler: ROLAND Signed Normal [facility] Cardiology Visit Reporton Cardiology Visit Report [facility] [address] [place] [address] OFFICE VISIT Date of Service: 03/07/24 MR#: [id number] Acct: [id number] Name: PHANI DOMÍNGUEZ Rep #: [id number] : 1940 Provider: EDDIE agrawal Age/Sex: 83/F Location: [facility] Status: Signed HPI HPI History of [...] vision ENT (more content not included)... Normal [facility] Absolute lymphocyte countOrd ered By: Cristal Astudillo on 08-19-2023 Lymphocytes Auto (Unsp spec) [#/Vol] 1.37 10*3/uL 0.83-4.51 [facility] Automated lymphocyte count a s percentage of total leukocytesOrdered By: Cristal Astudillo on 08-19-2023 Lymphocytes/100 WBC Auto (Unsp spec) 14.3 % 19-41 [facility] Basophil percentageOrdered B y: Cristal Astudillo on 08-19-2023 Basophils/100 WBC (Bld) 0.9 % 0-1 [facility] Bilirubin [Mass/Vol] 1.10 mg/dL 0.20-1.00 [facility] Comment on above: For patients on eltr ombopag therapy, use of Dimension [place] TBIL is not recommended. Chloride [Moles/Vol] 106 mmol/L 98-107 [facility] Eosinophils/100 WBC (Bld) 1.2 % 0-5 [facility] Glucose [Mass/Vol] 103 mg/dL 74-106 [facility] Comment on above: Fasting Glucose resu lt from 100 to 125 mg/dL suggests IMPAIRED HOMEOSTASIS per A.D.A. criteria. Hemoglobin (Bld) [Mass/Vol] 13.7 g/dL 12.0-15.0 [facility] Monocytes/100 WBC (Bld) 6.3 % 0-10 [facility] Neutrophils (Bld) [#/Vol] 7.4 10*3/uL 2.0-7.7 [facility] Neutrophils/100 WBC (Bld) 76.9 % 47-70 [facility] Potassium [Moles/Vol] 4.2 mmol/L 3.5-5.1 [facility] Protein [Mass/Vol] 7.3 g/dL 6.4-8.2 [facility] Sodium [Moles/Vol] 140 mmol/L 136-145 [facility] WBC (Bld) [#/Vol] 9.6 10*3/uL 4.4-11.0 [facility] Determination of erythrocyte mean corpuscular volume (MCV)Ordered By: Cristal Astudillo on 08-19-2023 MCV (RBC) [Entitic vol] 89.6 fL 81-99 [facility] Erythrocyte distribution wid th ratioOrdered By: Cristal Astudillo on 08-19-2023 Erythrocyte distribution width (RBC) [Ratio] 12.3 % 11.6-14.6 [facility] Erythrocyte distribution wid th standard deviationOrdered By: Cristal Astudillo on 08-19-2023 Erythrocyte distribution width (RBC) [Entitic vol] 40.8 fL 35.1-43.9 [facility] Hematocrit Auto (Bld) [Volum e fraction]Ordered By: Cristal Astudillo on 08-19-2023 Hematocrit (Bld) [Volume fraction] 42.9 % 37-47 [facility] Immature granulocytes/100 WB C Auto (Bld)Ordered By: Cristal Astudillo on 08-19-2023 Immature granulocytes/100 WBC (Bld) 0.400 % 0.0-0.9 [facility] Comment on above: IG% - Immature Granu locytes (promyelocytes, myelocytes and metamyelocytes) > 1% indicates that a LEFT SHIFT is Present. Laboratory - Chemistry and C hemistry - challengeOrdered By: Cristal Astudillo on 08-19-2023 Albumin/Globulin [Mass ratio] 0.8 {ratio} 0.9-2.4 [facility] ALP [Catalytic activity/Vol] 98 U/L 45-117 [facility] ALT [Catalytic activity/Vol] 22 U/L 13-56 [facility] CO2 [Moles/Vol] 27.0 mmol/L 21.0-32.0 [facility] Globulin (S) [Mass/Vol] 4.0 g/dL 2.2-4.2 [facility] Urea nitrogen/Creatinine [Mass ratio] 20.7 mg/mg 10-20 [facility] Laboratory - Hematology and Cell countsOrdered By: Cristal Astudillo on 08-19-2023 MCH (RBC) [Entitic mass] 28.6 pg 27.0-32.0 [facility] MCHC (RBC) [Mass/Vol] 31.9 g/dL 32-36 [facility] Nucleated RBC/100 WBC (Bld) [Ratio] 0 % 0-5 [facility] Platelet mean volume (Bld) [Entitic vol] 10.4 fL 6.2-12.0 [facility] Platelets (Bld) [#/Vol] 399 10*3/uL 150-450 [facility] No Panel InformationOrdered By: Cristal Astudillo on 08-19-2023 Estimated GFR (MDRD) Amer 76 mL/min >60 [facility] Comment on above: GFR Calc Estimated GFR (MDRD) Non-Af Amer 63 mL/min >60 [facility] Comment on above: Non- GFR Calc Vitamin D 25-Hydroxy 55.7 ng/mL [facility] Comment on above: Vitamin D 25(OH) Sta tus Range Deficiency <20 ng/mL (50nmol/L) Insufficiency 20 - 30 ng/mL (50 - 75 nmol/L) Sufficiency 30 - 100 ng/mL (75 - 250 nmol/L) Toxicity >100 ng/mL (>250 nmol/L) RBC Auto (Bld) [#/Vol]Ordere d By: Cristal Astudillo on 08-19-2023 RBC (Bld) [#/Vol] 4.79 10*6/uL 4.2-5.4 [facility] Serum or plasma calcium josué urement (mass/volume)Ordered By: Cristal Astudillo on 08-19-2023 Calcium [Mass/Vol] 9.1 mg/dL 8.5-10.1 [facility] Serum or plasma creatinine m easurement (mass/volume)Ordered By: Cristal Astudillo on 08-19-2023 Creatinine [Mass/Vol] 0.92 mg/dL 0.55-1.02 [facility] Comment on above: The validity of the calculated GFR & GFRAA in patients over 70 years has not been determined. Clinical correlation is essential. Serum or plasma thyroid stim ulating hormone (TSH) measurement (units/volume)Ordered By: Cristal Astudillo on 08-19-2023 TSH Qn 2.40 uIU/mL 0.358-3.74 [facility] Serum or plasma urea nitroge n measurement (mass/volume)Ordered By: Cristal Astudillo on 08-19-2023 Urea nitrogen [Mass/Vol] 19 mg/dL 7-18 [facility] Thin prep Papanicolaou smear with manual screeningOrdered By: Cristal Astudillo on 08-19-2023 Thin prep Papanicolaou smear with manual screening 3.3 g/dL 3.2-5.0 [facility] Thin prep Papanicolaou smear with manual screening 19 U/L 15-37 [facility] Thin prep Papanicolaou smear with manual screening 7 5-15 [facility] Whole blood hemoglobin A1c/t otal hemoglobin ratio (mass fraction)Ordered By: Cristal Astudillo on 08-19-2023 HbA1c (Bld) [Mass fraction] 5.6 % 3.8-5.6 [facility] Comment on above: Normal < 5.7 % Predi abetic 5.7 - 6.4 % Diabetic >or= 6.5 % Please note range changes. Basophil percentageOrdered B y: Sathish Brewster on 07-07-2023 Bilirubin [Mass/Vol] 1.10 mg/dL 0.20-1.00 [facility] Comment on above: For patients on eltr ombopag therapy, use of Dimension [place] TBIL is not recommended. Cholesterol [Mass/Vol] 237 mg/dL <200 [facility] Comment on above: <200 mg/dL Desirable 200-240 mg/dL Borderline >240 mg/dL High Risk Protein [Mass/Vol] 7.0 g/dL 6.4-8.2 [facility] Triglyceride [Mass/Vol] 158 mg/dL <199 [facility] Comment on above: The drugs N-Acetylcy steine and Metamizole may falsely depress this assay.Serum Triglycerides Reference Interval Normal <150 mg/dL Borderline high 150 - 199 mg/dL High 200 - 499 mg/dL Very High > or = 500 mg/dL Direct bilirubinOrdered By: Sathish Brewster on 07-07-2023 Bilirubin.direct [Mass/Vol] 0.20 mg/dL 0.00-0.30 [facility] High density lipoprotein (HD L) measurementOrdered By: Sathish Brewster on 07-07-2023 Cholesterol in HDL (Body fld) [Mass/Vol] 54 mg/dL >40 [facility] Comment on above: The drugs N-Acetylcy steine and Metamizole may falsely depress this assay. Reference Range HDL <40 mg/dL Low HDL Cholesterol HDL >or= 60 mg/dL High HDL Cholesterol Laboratory - Chemistry and C hemistry - challengeOrdered By: Sathish Brewster on 07-07-2023 ALP [Catalytic activity/Vol] 89 U/L 45-117 [facility] ALT [Catalytic activity/Vol] 29 U/L 13-56 [facility] Globulin (S) [Mass/Vol] 3.7 g/dL 2.2-4.2 [facility] Low density lipoprotein (LDL ) cholesterol measurementOrdered By: Sathish Brewster on 07-07-2023 Cholesterol in LDL (Body fld) [Moles/Vol] 151 mg/dL 0-130 [facility] Thin prep Papanicolaou smear with manual screeningOrdered By: Sathish Brewster on 07-07-2023 Thin prep Papanicolaou smear with manual screening 3.3 g/dL 3.2-5.0 [facility] Thin prep Papanicolaou smear with manual screening 19 U/L 15-37 [facility] Very low density lipoprotein (VLDL) cholesterol measurementOrdered By: Sathish Brewster on 07-07-2023 Cholesterol in VLDL Calc [Moles/Vol] 32 mg/dL 5-40 [facility] Absolute lymphocyte countOrd ered By: Morelia Higgins on 05-18-2023 Lymphocytes Auto (Unsp spec) [#/Vol] 1.20 10*3/uL 0.83-4.51 [facility] Basophil percentageOrdered B y: Morelia Higgins on 05-18-2023 Basophils/100 WBC (Bld) 0.7 % 0-1 [facility] Bilirubin [Mass/Vol] 0.90 mg/dL 0.20-1.00 [facility] Comment on above: For patients on eltr ombopag therapy, use of Dimension [place] TBIL is not recommended. Chloride [Moles/Vol] 107 mmol/L 98-107 [facility] Eosinophils/100 WBC (Bld) 1.1 % 0-5 [facility] Glucose [Mass/Vol] 105 mg/dL 74-106 [facility] Comment on above: Fasting Glucose resu lt from 100 to 125 mg/dL suggests IMPAIRED HOMEOSTASIS per A.D.A. criteria. Neutrophils (Bld) [#/Vol] 6.9 10*3/uL 2.0-7.7 [facility] Neutrophils/100 WBC (Bld) 77.8 % 47-70 [facility] Potassium [Moles/Vol] 3.7 mmol/L 3.5-5.1 [facility] Protein [Mass/Vol] 6.8 g/dL 6.4-8.2 [facility] Sodium [Moles/Vol] 139 mmol/L 136-145 [facility] WBC (Bld) [#/Vol] 8.9 10*3/uL 4.4-11.0 [facility] Blood erythrocytes count (nu mber/volume)Ordered By: Morelia Higgins on 05-18-2023 RBC (Bld) [#/Vol] 4.29 10*6/uL 4.2-5.4 [facility] Blood hemoglobin measurement (mass/volume)Ordered By: Morelia Higgins on 05-18-2023 Hemoglobin (Bld) [Mass/Vol] 12.9 g/dL 12.0-15.0 [facility] Blood lymphocytes/100 leukoc ytesOrdered By: Morelia Higgins on 05-18-2023 Lymphocytes/100 WBC (Bld) 13.5 % 19-41 [facility] Blood monocytes/100 leukocyt esOrdered By: Morelia Higgins on 05-18-2023 Monocytes/100 WBC (Bld) 6.5 % 0-10 [facility] Blood platelet mean volumeOr dered By: Morelia Higgins on 05-18-2023 Platelet mean volume (Bld) [Entitic vol] 10.5 fL 6.2-12.0 [facility] Determination of erythrocyte mean corpuscular volume (MCV)Ordered By: Morelia Higgins on 05-18-2023 MCV (RBC) [Entitic vol] 91.4 fL 81-99 [facility] Hematocrit Auto (Bld) [Volum e fraction]Ordered By: Morelia Higgins on 05-18-2023 Hematocrit (Bld) [Volume fraction] 39.2 % 37-47 [facility] Laboratory - Chemistry and C hemistry - challengeOrdered By: Morelia Higgins on 05-18-2023 ALP [Catalytic activity/Vol] 78 U/L 45-117 [facility] ALT [Catalytic activity/Vol] 33 U/L 13-56 [facility] CO2 [Moles/Vol] 30.0 mmol/L 21.0-32.0 [facility] Globulin (S) [Mass/Vol] 3.6 g/dL 2.2-4.2 [facility] Urea nitrogen/Creatinine [Mass ratio] 25.4 mg/mg 10-20 [facility] Laboratory - Hematology and Cell countsOrdered By: Morelia Higgins on 05-18-2023 Erythrocyte distribution width (RBC) [Entitic vol] 40.4 fL 35.1-43.9 [facility] Erythrocyte distribution width (RBC) [Ratio] 12.1 % 11.6-14.6 [facility] Immature granulocytes/100 WBC (Bld) 0.400 % 0.0-0.9 [facility] Comment on above: IG% - Immature Granu locytes (promyelocytes, myelocytes and metamyelocytes) > 1% indicates that a LEFT SHIFT is Present. MCH (RBC) [Entitic mass] 30.1 pg 27.0-32.0 [facility] Nucleated RBC/100 WBC (Bld) [Ratio] 0 % 0-5 [facility] MCHC Auto (RBC) [Mass/Vol]Or dered By: Morelia Higgins on 05-18-2023 MCHC (RBC) [Mass/Vol] 32.9 g/dL 32-36 [facility] No Panel InformationOrdered By: Morelia Higgins on 05-18-2023 Estimated GFR (MDRD) Amer 90 mL/min >60 [facility] Comment on above: GFR Calc Estimated GFR (MDRD) Non-Af Amer 75 mL/min >60 [facility] Comment on above: Non- GFR Calc Platelets bldOrdered By: Niels Higgins on 05-18-2023 Platelets (Bld) [#/Vol] 335 10*3/uL 150-450 [facility] Serum or plasma albumin josué urement (mass/volume)Ordered By: Morelia Higgins on 05-18-2023 Albumin [Mass/Vol] 3.2 g/dL 3.2-5.0 [facility] Serum or plasma albumin/glob ulin mass ratioOrdered By: Morelia Higgins on 05-18-2023 Albumin/Globulin [Mass ratio] 0.9 {ratio} 0.9-2.4 [facility] Serum or plasma calcium josué urement (mass/volume)Ordered By: Morelia Higgins on 05-18-2023 Calcium [Mass/Vol] 9.0 mg/dL 8.5-10.1 [facility] Serum or plasma creatinine m easurement (mass/volume)Ordered By: Morelia Higgins on 05-18-2023 Creatinine [Mass/Vol] 0.79 mg/dL 0.55-1.02 [facility] Comment on above: The validity of the calculated GFR & GFRAA in patients over 70 years has not been determined. Clinical correlation is essential. Serum or plasma urea nitroge n measurement (mass/volume)Ordered By: Morelia Higgins on 05-18-2023 Urea nitrogen [Mass/Vol] 20 mg/dL 7-18 [facility] Thin prep Papanicolaou smear with manual screeningOrdered By: Morelia Higgins on 05-18-2023 Thin prep Papanicolaou smear with manual screening 19 U/L 15-37 [facility] Thin prep Papanicolaou smear with manual screening 2 5-15 [facility] Absolute lymphocyte countOrd ered By: Sathish Brewster on 03-22-2023 Lymphocytes Auto (Unsp spec) [#/Vol] 1.50 10*3/uL 0.83-4.51 [facility] Basophil percentageOrdered B y: Sathish Brewster on 03-22-2023 Basophils/100 WBC (Bld) 1.0 % 0-1 [facility] Eosinophils/100 WBC (Bld) 1.3 % 0-5 [facility] Neutrophils (Bld) [#/Vol] 5.5 10*3/uL 2.0-7.7 [facility] Neutrophils/100 WBC (Bld) 71.1 % 47-70 [facility] WBC (Bld) [#/Vol] 7.8 10*3/uL 4.4-11.0 [facility] Bilirubin [Mass/Vol] 0.80 mg/dL 0.20-1.00 [facility] Comment on above: For patients on eltr ombopag therapy, use of Dimension [place] TBIL is not recommended. Chloride [Moles/Vol] 106 mmol/L 98-107 [facility] Cholesterol [Mass/Vol] 248 mg/dL <200 [facility] Comment on above: <200 mg/dL Desirable 200-240 mg/dL Borderline >240 mg/dL High Risk Glucose [Mass/Vol] 117 mg/dL 74-106 [facility] Comment on above: Fasting Glucose resu lt from 100 to 125 mg/dL suggests IMPAIRED HOMEOSTASIS per A.D.A. criteria. Potassium [Moles/Vol] 4.2 mmol/L 3.5-5.1 [facility] Protein [Mass/Vol] 6.9 g/dL 6.4-8.2 [facility] Sodium [Moles/Vol] 140 mmol/L 136-145 [facility] Triglyceride [Mass/Vol] 137 mg/dL <199 [facility] Comment on above: The drugs N-Acetylcy steine and Metamizole may falsely depress this assay.Serum Triglycerides Reference Interval Normal <150 mg/dL Borderline high 150 - 199 mg/dL High 200 - 499 mg/dL Very High > or = 500 mg/dL Blood erythrocytes count (nu mber/volume)Ordered By: Sathish Brewster on 03-22-2023 RBC (Bld) [#/Vol] 4.55 10*6/uL 4.2-5.4 [facility] Blood hemoglobin measurement (mass/volume)Ordered By: Sathish Brewster on 03-22-2023 Hemoglobin (Bld) [Mass/Vol] 13.3 g/dL 12.0-15.0 [facility] Blood lymphocytes/100 leukoc ytesOrdered By: Sathish Brewster on 03-22-2023 Lymphocytes/100 WBC (Bld) 19.3 % 19-41 [facility] Blood monocytes/100 leukocyt esOrdered By: Sathish Brewster on 03-22-2023 Monocytes/100 WBC (Bld) 6.7 % 0-10 [facility] Blood platelet mean volumeOr dered By: Sathish Brewster on 03-22-2023 Platelet mean volume (Bld) [Entitic vol] 10.4 fL 6.2-12.0 [facility] Determination of erythrocyte mean corpuscular volume (MCV)Ordered By: Sathish Brewster on 03-22-2023 MCV (RBC) [Entitic vol] 92.5 fL 81-99 [facility] Direct bilirubinOrdered By: Sathish Brewster on 03-22-2023 Bilirubin.direct [Mass/Vol] 0.15 mg/dL 0.00-0.30 [facility] Hematocrit Auto (Bld) [Volum e fraction]Ordered By: Sathish Brewster on 03-22-2023 Hematocrit (Bld) [Volume fraction] 42.1 % 37-47 [facility] Laboratory - Chemistry and C hemistry - challengeOrdered By: Sathish Brewster on 03-22-2023 ALP [Catalytic activity/Vol] 80 U/L 45-117 [facility] ALT [Catalytic activity/Vol] 42 U/L 13-56 [facility] CO2 [Moles/Vol] 32.0 mmol/L 21.0-32.0 [facility] Globulin (S) [Mass/Vol] 3.7 g/dL 2.2-4.2 [facility] Urea nitrogen/Creatinine [Mass ratio] 23.0 mg/mg 10-20 [facility] Laboratory - Hematology and Cell countsOrdered By: Sathish Brewster on 03-22-2023 Erythrocyte distribution width (RBC) [Entitic vol] 43.6 fL 35.1-43.9 [facility] Erythrocyte distribution width (RBC) [Ratio] 12.9 % 11.6-14.6 [facility] Immature granulocytes/100 WBC (Bld) 0.600 % 0.0-0.9 [facility] Comment on above: IG% - Immature Granu locytes (promyelocytes, myelocytes and metamyelocytes) > 1% indicates that a LEFT SHIFT is Present. MCH (RBC) [Entitic mass] 29.2 pg 27.0-32.0 [facility] Nucleated RBC/100 WBC (Bld) [Ratio] 0 % 0-5 [facility] MCHC Auto (RBC) [Mass/Vol]Or dered By: Sathish Brewster on 03-22-2023 MCHC (RBC) [Mass/Vol] 31.6 g/dL 32-36 [facility] No Panel InformationOrdered By: Sathish Brewster on 03-22-2023 Estimated GFR (MDRD) Amer 91 mL/min >60 [facility] Comment on above: GFR Calc Estimated GFR (MDRD) Non-Af Amer 75 mL/min >60 [facility] Comment on above: Non- GFR Calc Platelets bldOrdered By: Blair Brewster on 03-22-2023 Platelets (Bld) [#/Vol] 347 10*3/uL 150-450 [facility] Serum or plasma albumin josué urement (mass/volume)Ordered By: Sathish Brewster on 03-22-2023 Albumin [Mass/Vol] 3.2 g/dL 3.2-5.0 [facility] Serum or plasma albumin/glob ulin mass ratioOrdered By: Sathish Brewster on 03-22-2023 Albumin/Globulin [Mass ratio] 0.9 {ratio} 0.9-2.4 [facility] Serum or plasma calcium josué urement (mass/volume)Ordered By: Sathish Brewster on 03-22-2023 Calcium [Mass/Vol] 9.2 mg/dL 8.5-10.1 [facility] Serum or plasma cholesterol in HDL measurement (mass/volume)Ordered By: Sathish Brewster on 03-22-2023 Cholesterol in HDL [Mass/Vol] 51 mg/dL >40 [facility] Comment on above: The drugs N-Acetylcy steine and Metamizole may falsely depress this assay. Reference Range HDL <40 mg/dL Low HDL Cholesterol HDL >or= 60 mg/dL High HDL Cholesterol Serum or plasma cholesterol in VLDL measurement (mass/volume)Ordered By: Sathish Brewster on 03-22-2023 Cholesterol in VLDL [Mass/Vol] 27 mg/dL 5-40 [facility] Serum or plasma creatinine m easurement (mass/volume)Ordered By: Sathish Brewster on 03-22-2023 Creatinine [Mass/Vol] 0.78 mg/dL 0.55-1.02 [facility] Comment on above: The validity of the calculated GFR & GFRAA in patients over 70 years has not been determined. Clinical correlation is essential. Serum or plasma low density lipoprotein (LDL) cholesterol measurement (mass/volume)Ordered By: Sathish Brewster on 03-22-2023 Cholesterol in LDL [Mass/Vol] 170 mg/dL 0-130 [facility] Serum or plasma urea nitroge n measurement (mass/volume)Ordered By: Sathish Brewster on 03-22-2023 Urea nitrogen [Mass/Vol] 18 mg/dL 7-18 [facility] Thin prep Papanicolaou smear with manual screeningOrdered By: Sathish Brewster on 03-22-2023 Thin prep Papanicolaou smear with manual screening 21 U/L 15-37 [facility] Thin prep Papanicolaou smear with manual screening 2 5-15 [facility] Absolute lymphocyte countOrd ered By: Cristal Astudillo on 01-11-2023 Lymphocytes Auto (Unsp spec) [#/Vol] 1.36 10*3/uL 0.83-4.51 [facility] Basophil percentageOrdered B y: Cristal Astudillo on 01-11-2023 Basophils/100 WBC (Bld) 0.8 % 0-1 [facility] Bilirubin [Mass/Vol] 1.20 mg/dL 0.20-1.00 [facility] Comment on above: For patients on eltr ombopag therapy, use of Dimension [place] TBIL is not recommended. Chloride [Moles/Vol] 105 mmol/L 98-107 [facility] Eosinophils/100 WBC (Bld) 2.2 % 0-5 [facility] Glucose [Mass/Vol] 107 mg/dL 74-106 [facility] Comment on above: Fasting Glucose resu lt from 100 to 125 mg/dL suggests IMPAIRED HOMEOSTASIS per A.D.A. criteria. Neutrophils (Bld) [#/Vol] 6.2 10*3/uL 2.0-7.7 [facility] Neutrophils/100 WBC (Bld) 73.1 % 47-70 [facility] Potassium [Moles/Vol] 4.0 mmol/L 3.5-5.1 [facility] Protein [Mass/Vol] 6.9 g/dL 6.4-8.2 [facility] Sodium [Moles/Vol] 138 mmol/L 136-145 [facility] WBC (Bld) [#/Vol] 8.5 10*3/uL 4.4-11.0 [facility] Basophil percentageOrdered B y: Marcial Abhi on 01-11-2023 Cholesterol [Mass/Vol] 167 mg/dL <200 [facility] Comment on above: <200 mg/dL Desirable 200-240 mg/dL Borderline >240 mg/dL High Risk Triglyceride [Mass/Vol] 114 mg/dL <199 [facility] Comment on above: The drugs N-Acetylcy steine and Metamizole may falsely depress this assay.Serum Triglycerides Reference Interval Normal <150 mg/dL Borderline high 150 - 199 mg/dL High 200 - 499 mg/dL Very High > or = 500 mg/dL Blood erythrocytes count (nu mber/volume)Ordered By: Cristal Astudillo on 01-11-2023 RBC (Bld) [#/Vol] 4.43 10*6/uL 4.2-5.4 [facility] Blood hemoglobin measurement (mass/volume)Ordered By: Cristal Astudillo on 01-11-2023 Hemoglobin (Bld) [Mass/Vol] 12.8 g/dL 12.0-15.0 [facility] Blood lymphocytes/100 leukoc ytesOrdered By: Cristal Astudillo on 01-11-2023 Lymphocytes/100 WBC (Bld) 16.0 % 19-41 [facility] Blood monocytes/100 leukocyt esOrdered By: Critsal Astudillo on 01-11-2023 Monocytes/100 WBC (Bld) 7.4 % 0-10 [facility] Blood platelet mean volumeOr dered By: Cristal Astudillo on 01-11-2023 Platelet mean volume (Bld) [Entitic vol] 10.7 fL 6.2-12.0 [facility] Determination of erythrocyte mean corpuscular volume (MCV)Ordered By: Cristal Astudillo on 01-11-2023 MCV (RBC) [Entitic vol] 91.9 fL 81-99 [facility] Direct bilirubinOrdered By: Cristal Astudillo on 01-11-2023 Bilirubin.direct [Mass/Vol] 0.25 mg/dL 0.00-0.30 [facility] Hematocrit Auto (Bld) [Volum e fraction]Ordered By: Cristal Astudillo on 01-11-2023 Hematocrit (Bld) [Volume fraction] 40.7 % 37-47 [facility] Laboratory - Chemistry and C hemistry - challengeOrdered By: Cristalmanuel Astudillo on 01-11-2023 ALP [Catalytic activity/Vol] 78 U/L 45-117 [facility] ALT [Catalytic activity/Vol] 36 U/L 13-56 [facility] CO2 [Moles/Vol] 31.0 mmol/L 21.0-32.0 [facility] Globulin (S) [Mass/Vol] 3.7 g/dL 2.2-4.2 [facility] Magnesium [Mass/Vol] 2.3 mg/dL 1.6-2.6 [facility] Urea nitrogen/Creatinine [Mass ratio] 23.4 mg/mg 10-20 [facility] Laboratory - Hematology and Cell countsOrdered By: Cristal Astudillo on 01-11-2023 Erythrocyte distribution width (RBC) [Entitic vol] 41.5 fL 35.1-43.9 [facility] Erythrocyte distribution width (RBC) [Ratio] 12.3 % 11.6-14.6 [facility] Immature granulocytes/100 WBC (Bld) 0.500 % 0.0-0.9 [facility] Comment on above: IG% - Immature Granu locytes (promyelocytes, myelocytes and metamyelocytes) > 1% indicates that a LEFT SHIFT is Present. MCH (RBC) [Entitic mass] 28.9 pg 27.0-32.0 [facility] Nucleated RBC/100 WBC (Bld) [Ratio] 0 % 0-5 [facility] MCHC Auto (RBC) [Mass/Vol]Or dered By: Cristal Astudillo on 01-11-2023 MCHC (RBC) [Mass/Vol] 31.4 g/dL 32-36 [facility] No Panel InformationOrdered By: Cristal Astudillo on 01-11-2023 Estimated GFR (MDRD) Amer 82 mL/min >60 [facility] Comment on above: GFR Calc Estimated GFR (MDRD) Non-Af Amer 68 mL/min >60 [facility] Comment on above: Non- GFR Calc Thyroid Stimulating Hormone (TSH) 2.40 uIU/mL 0.358-3.74 [facility] Vitamin D 25-Hydroxy 72.8 ng/mL [facility] Comment on above: Vitamin D 25(OH) Sta tus Range Deficiency <20 ng/mL (50nmol/L) Insufficiency 20 - 30 ng/mL (50 - 75 nmol/L) Sufficiency 30 - 100 ng/mL (75 - 250 nmol/L) Toxicity >100 ng/mL (>250 nmol/L) Platelets bldOrdered By: Alize Astudillo on 01-11-2023 Platelets (Bld) [#/Vol] 338 10*3/uL 150-450 [facility] Serum or plasma albumin josué urement (mass/volume)Ordered By: Cristal Astudillo on 01-11-2023 Albumin [Mass/Vol] 3.2 g/dL 3.2-5.0 [facility] Serum or plasma albumin/glob ulin mass ratioOrdered By: Cristal Astudillo on 01-11-2023 Albumin/Globulin [Mass ratio] 0.9 {ratio} 0.9-2.4 [facility] Serum or plasma calcium josué urement (mass/volume)Ordered By: Cristal Astudillo on 01-11-2023 Calcium [Mass/Vol] 9.0 mg/dL 8.5-10.1 [facility] Serum or plasma cholesterol in HDL measurement (mass/volume)Ordered By: Marcial Moe on 01-11-2023 Cholesterol in HDL [Mass/Vol] 54 mg/dL >40 [facility] Comment on above: The drugs N-Acetylcy steine and Metamizole may falsely depress this assay. Reference Range HDL <40 mg/dL Low HDL Cholesterol HDL >or= 60 mg/dL High HDL Cholesterol Serum or plasma cholesterol in VLDL measurement (mass/volume)Ordered By: Marcial Moe on 01-11-2023 Cholesterol in VLDL [Mass/Vol] 23 mg/dL 5-40 [facility] Serum or plasma creatinine m easurement (mass/volume)Ordered By: Cristal Astudillo on 01-11-2023 Creatinine [Mass/Vol] 0.86 mg/dL 0.55-1.02 [facility] Comment on above: The validity of the calculated GFR & GFRAA in patients over 70 years has not been determined. Clinical correlation is essential. Serum or plasma low density lipoprotein (LDL) cholesterol measurement (mass/volume)Ordered By: Marcial Moe on 01-11-2023 Cholesterol in LDL [Mass/Vol] 90 mg/dL 0-130 [facility] Serum or plasma urea nitroge n measurement (mass/volume)Ordered By: Cristal Astudillo on 01-11-2023 Urea nitrogen [Mass/Vol] 20 mg/dL 7-18 [facility] Thin prep Papanicolaou smear with manual screeningOrdered By: Cristal Astudillo on 01-11-2023 Thin prep Papanicolaou smear with manual screening 20 U/L 15-37 [facility] Thin prep Papanicolaou smear with manual screening 2 5-15 [facility] Absolute lymphocyte countOrd ered By: Morelia Higgins on 11-22-2022 Lymphocytes Auto (Unsp spec) [#/Vol] 1.17 10*3/uL 0.83-4.51 [facility] Basophil percentageOrdered B y: Morelia Higgins on 11-22-2022 Basophils/100 WBC (Bld) 0.9 % 0-1 [facility] Bilirubin [Mass/Vol] 0.60 mg/dL 0.20-1.00 [facility] Comment on above: For patients on eltr ombopag therapy, use of Dimension [place] TBIL is not recommended. Chloride [Moles/Vol] 108 mmol/L 98-107 [facility] Eosinophils/100 WBC (Bld) 4.7 % 0-5 [facility] Glucose [Mass/Vol] 106 mg/dL 74-106 [facility] Comment on above: Fasting Glucose resu lt from 100 to 125 mg/dL suggests IMPAIRED HOMEOSTASIS per A.D.A. criteria. Neutrophils (Bld) [#/Vol] 6.6 10*3/uL 2.0-7.7 [facility] Neutrophils/100 WBC (Bld) 71.5 % 47-70 [facility] Potassium [Moles/Vol] 4.4 mmol/L 3.5-5.1 [facility] Protein [Mass/Vol] 6.8 g/dL 6.4-8.2 [facility] Sodium [Moles/Vol] 139 mmol/L 136-145 [facility] WBC (Bld) [#/Vol] 9.3 10*3/uL 4.4-11.0 [facility] Blood erythrocytes count (nu mber/volume)Ordered By: Morelia Higgins on 11-22-2022 RBC (Bld) [#/Vol] 4.49 10*6/uL 4.2-5.4 [facility] Blood hemoglobin measurement (mass/volume)Ordered By: Morelia Higgins on 11-22-2022 Hemoglobin (Bld) [Mass/Vol] 12.9 g/dL 12.0-15.0 [facility] Blood lymphocytes/100 leukoc ytesOrdered By: Morelia Higgins on 11-22-2022 Lymphocytes/100 WBC (Bld) 12.6 % 19-41 [facility] Blood monocytes/100 leukocyt esOrdered By: Morelia Higgins on 11-22-2022 Monocytes/100 WBC (Bld) 9.7 % 0-10 [facility] Blood platelet mean volumeOr dered By: Morelia Higgins on 11-22-2022 Platelet mean volume (Bld) [Entitic vol] 10.5 fL 6.2-12.0 [facility] Determination of erythrocyte mean corpuscular volume (MCV)Ordered By: Morelia Higgins on 11-22-2022 MCV (RBC) [Entitic vol] 91.5 fL 81-99 [facility] Hematocrit Auto (Bld) [Volum e fraction]Ordered By: Morelia Higgins on 11-22-2022 Hematocrit (Bld) [Volume fraction] 41.1 % 37-47 [facility] - Chemistry and C hemistry - challengeOrdered By: Morelia Higgins on 11-22-2022 ALP [Catalytic activity/Vol] 81 U/L 45-117 [facility] ALT [Catalytic activity/Vol] 25 U/L 13-56 [facility] CO2 [Moles/Vol] 28.0 mmol/L 21.0-32.0 [facility] Globulin (S) [Mass/Vol] 3.6 g/dL 2.2-4.2 [facility] Urea nitrogen/Creatinine [Mass ratio] 28.1 mg/mg 10-20 [facility] - Hematology and Cell countsOrdered By: Morelia Higgins on 11-22-2022 Erythrocyte distribution width (RBC) [Entitic vol] 41.7 fL 35.1-43.9 [facility] Erythrocyte distribution width (RBC) [Ratio] 12.5 % 11.6-14.6 [facility] Immature granulocytes/100 WBC (Bld) 0.600 % 0.0-0.9 [facility] Comment on above: IG% - Immature Granu locytes (promyelocytes, myelocytes and metamyelocytes) > 1% indicates that a LEFT SHIFT is Present. MCH (RBC) [Entitic mass] 28.7 pg 27.0-32.0 [facility] Nucleated RBC/100 WBC (Bld) [Ratio] 0 % 0-5 [facility] MCHC Auto (RBC) [Mass/Vol]Or dered By: Morelia Higgins on 11-22-2022 MCHC (RBC) [Mass/Vol] 31.4 g/dL 32-36 [facility] No Panel InformationOrdered By: Morelia Higgins on 11-22-2022 Estimated GFR (MDRD) Amer 79 mL/min >60 [facility] Comment on above: GFR Calc Estimated GFR (MDRD) Non-Af Amer 65 mL/min >60 [facility] Comment on above: Non- GFR Calc Platelets bldOrdered By: Niels Higgins on 11-22-2022 Platelets (Bld) [#/Vol] 342 10*3/uL 150-450 [facility] Serum or plasma albumin josué urement (mass/volume)Ordered By: Morelia Higgins on 11-22-2022 Albumin [Mass/Vol] 3.2 g/dL 3.2-5.0 [facility] Serum or plasma albumin/glob ulin mass ratioOrdered By: Moerlia Higgins on 11-22-2022 Albumin/Globulin [Mass ratio] 0.9 {ratio} 0.9-2.4 [facility] Serum or plasma calcium josué urement (mass/volume)Ordered By: Morelia Higgins on 11-22-2022 Calcium [Mass/Vol] 8.8 mg/dL 8.5-10.1 [facility] Serum or plasma creatinine m easurement (mass/volume)Ordered By: Morelia Higgins on 11-22-2022 Creatinine [Mass/Vol] 0.89 mg/dL 0.55-1.02 [facility] Comment on above: The validity of the calculated GFR & GFRAA in patients over 70 years has not been determined. Clinical correlation is essential. Serum or plasma urea nitroge n measurement (mass/volume)Ordered By: Morelia Higgins on 11-22-2022 Urea nitrogen [Mass/Vol] 25 mg/dL 7-18 [facility] Thin prep Papanicolaou smear with manual screeningOrdered By: Morelia Higgins on 11-22-2022 Thin prep Papanicolaou smear with manual screening 15 U/L 15-37 [facility] Thin prep Papanicolaou smear with manual screening 3 5-15 [facility] Laboratory - Chemistry and C hemistry - challengeon 08-04-2022 Bilirubin Ql (U) Negative [facility] Glucose Ql (U) Negative [facility] Ketones Ql (U) Trace (5) [facility] pH (U) 5.0 [pH] [facility] Specific gravity (U) [Rel density] 1.010 [facility] Urobilinogen (U) [Mass/Vol] 0.2272145 mg/dL [facility] Laboratory - Hematology and Cell countson 08-04-2022 Hemoglobin Ql (U) Negative [facility] Laboratory - Specimen inform ationon 08-04-2022 Clarity (U) Clear [facility] Color (U) Colorless [facility] Laboratory - Urinalysison Nitrite Ql (U) Negative [facility] Protein Ql (U) Negative [facility] No Panel Informationon 08-04 Urine Leukocytes Negatve [facility] Absolute lymphocyte countOrd ered By: Dr. Astudillo on 07-14-2022 Lymphocytes Auto (Unsp spec) [#/Vol] 1.20 10*3/uL 0.83-4.51 [facility] Basophil percentageOrdered B y: Dr. Astudillo on 07-14-2022 Basophils/100 WBC (Bld) 0.7 % 0-1 [facility] Bilirubin [Mass/Vol] 0.90 mg/dL 0.20-1.00 [facility] Comment on above: For patients on eltr ombopag therapy, use of Dimension [place] TBIL is not recommended. Chloride [Moles/Vol] 106 mmol/L 98-107 [facility] Eosinophils/100 WBC (Bld) 1.0 % 0-5 [facility] Glucose [Mass/Vol] 121 mg/dL 74-106 [facility] Comment on above: Fasting Glucose resu lt from 100 to 125 mg/dL suggests IMPAIRED HOMEOSTASIS per A.D.A. criteria. Neutrophils (Bld) [#/Vol] 7.5 10*3/uL 2.0-7.7 [facility] Neutrophils/100 WBC (Bld) 79.0 % 47-70 [facility] Potassium [Moles/Vol] 4.3 mmol/L 3.5-5.1 [facility] Protein [Mass/Vol] 7.1 g/dL 6.4-8.2 [facility] Sodium [Moles/Vol] 140 mmol/L 136-145 [facility] WBC (Bld) [#/Vol] 9.4 10*3/uL 4.4-11.0 [facility] Basophil percentageOrdered B y: Dr. Moe on 07-14-2022 Cholesterol [Mass/Vol] 156 mg/dL <200 [facility] Comment on above: <200 mg/dL Desirable 200-240 mg/dL Borderline >240 mg/dL High Risk Triglyceride [Mass/Vol] 87 mg/dL <199 [facility] Comment on above: The drugs N-Acetylcy steine and Metamizole may falsely depress this assay.Serum Triglycerides Reference Interval Normal <150 mg/dL Borderline high 150 - 199 mg/dL High 200 - 499 mg/dL Very High > or = 500 mg/dL Blood erythrocytes count (nu mber/volume)Ordered By: Dr. Astudillo on 07-14-2022 RBC (Bld) [#/Vol] 4.70 10*6/uL 4.2-5.4 [facility] Blood hemoglobin measurement (mass/volume)Ordered By: Dr. Astudillo on 07-14-2022 Hemoglobin (Bld) [Mass/Vol] 13.4 g/dL 12.0-15.0 [facility] Blood lymphocytes/100 leukoc ytesOrdered By: Dr. Astudillo on 07-14-2022 Lymphocytes/100 WBC (Bld) 12.7 % 19-41 [facility] Blood monocytes/100 leukocyt esOrdered By: Dr. Astudillo on 07-14-2022 Monocytes/100 WBC (Bld) 6.2 % 0-10 [facility] Blood platelet mean volumeOr dered By: Dr. Astudillo on 07-14-2022 Platelet mean volume (Bld) [Entitic vol] 10.0 fL 6.2-12.0 [facility] Determination of erythrocyte mean corpuscular volume (MCV)Ordered By: Dr. Astudillo on 07-14-2022 MCV (RBC) [Entitic vol] 90.0 fL 81-99 [facility] Direct bilirubinOrdered By: Dr. Moe on 07-14-2022 Bilirubin.direct [Mass/Vol] 0.17 mg/dL 0.00-0.30 [facility] Hematocrit Auto (Bld) [Volum e fraction]Ordered By: Dr. Astudillo on 07-14-2022 Hematocrit (Bld) [Volume fraction] 42.3 % 37-47 [facility] Laboratory - Chemistry and C hemistry - challengeOrdered By: Dr. Astudillo on 07-14-2022 ALP [Catalytic activity/Vol] 80 U/L 45-117 [facility] ALT [Catalytic activity/Vol] 29 U/L 13-56 [facility] CO2 [Moles/Vol] 31.0 mmol/L 21.0-32.0 [facility] Globulin (S) [Mass/Vol] 3.7 g/dL 2.2-4.2 [facility] Urea nitrogen/Creatinine [Mass ratio] 19.2 mg/mg 10-20 [facility] Laboratory - Hematology and Cell countsOrdered By: Dr. Astudillo on 07-14-2022 Erythrocyte distribution width (RBC) [Entitic vol] 39.5 fL 35.1-43.9 [facility] Erythrocyte distribution width (RBC) [Ratio] 12.0 % 11.6-14.6 [facility] Immature granulocytes/100 WBC (Bld) 0.400 % 0.0-0.9 [facility] Comment on above: IG% - Immature Granu locytes (promyelocytes, myelocytes and metamyelocytes) > 1% indicates that a LEFT SHIFT is Present. MCH (RBC) [Entitic mass] 28.5 pg 27.0-32.0 [facility] Nucleated RBC/100 WBC (Bld) [Ratio] 0 % 0-5 [facility] MCHC Auto (RBC) [Mass/Vol]Or dered By: Dr. Astudillo on 07-14-2022 MCHC (RBC) [Mass/Vol] 31.7 g/dL 32-36 [facility] No Panel InformationOrdered By: Dr. Astudillo on 07-14-2022 Estimated GFR (MDRD) Amer 74 mL/min >60 [facility] Comment on above: GFR Calc Estimated GFR (MDRD) Non-Af Amer 61 mL/min >60 [facility] Comment on above: Non- GFR Calc Platelets bldOrdered By: Dr. Astudillo on 07-14-2022 Platelets (Bld) [#/Vol] 379 10*3/uL 150-450 [facility] Serum or plasma albumin josué urement (mass/volume)Ordered By: Dr. Astudillo on 07-14-2022 Albumin [Mass/Vol] 3.4 g/dL 3.2-5.0 [facility] Serum or plasma albumin/glob ulin mass ratioOrdered By: Dr. Astudillo on 07-14-2022 Albumin/Globulin [Mass ratio] 0.9 {ratio} 0.9-2.4 [facility] Serum or plasma calcium josué urement (mass/volume)Ordered By: Dr. Astudillo on 07-14-2022 Calcium [Mass/Vol] 9.3 mg/dL 8.5-10.1 [facility] Serum or plasma cholesterol in HDL measurement (mass/volume)Ordered By: Dr. Moe on 07-14-2022 Cholesterol in HDL [Mass/Vol] 55 mg/dL >40 [facility] Comment on above: The drugs N-Acetylcy steine and Metamizole may falsely depress this assay. Reference Range HDL <40 mg/dL Low HDL Cholesterol HDL >or= 60 mg/dL High HDL Cholesterol Serum or plasma cholesterol in VLDL measurement (mass/volume)Ordered By: Dr. Moe on 07-14-2022 Cholesterol in VLDL [Mass/Vol] 17 mg/dL 5-40 [facility] Serum or plasma creatinine m easurement (mass/volume)Ordered By: Dr. Astudillo on 07-14-2022 Creatinine [Mass/Vol] 0.94 mg/dL 0.55-1.02 [facility] Comment on above: The validity of the calculated GFR & GFRAA in patients over 70 years has not been determined. Clinical correlation is essential. Serum or plasma low density lipoprotein (LDL) cholesterol measurement (mass/volume)Ordered By: Dr. Moe on 07-14-2022 Cholesterol in LDL [Mass/Vol] 84 mg/dL 0-130 [facility] Serum or plasma urea nitroge n measurement (mass/volume)Ordered By: Dr. Astudillo on 07-14-2022 Urea nitrogen [Mass/Vol] 18 mg/dL 7-18 [facility] Thin prep Papanicolaou smear with manual screeningOrdered By: Dr. Astudillo on 07-14-2022 Thin prep Papanicolaou smear with manual screening 20 U/L 15-37 [facility] Thin prep Papanicolaou smear with manual screening 3 5-15 [facility] Whole blood hemoglobin A1c/t otal hemoglobin ratio (mass fraction)Ordered By: Dr. Astudillo on 07-14-2022 HbA1c (Bld) [Mass fraction] 5.9 % 3.8-5.6 [facility] Comment on above: Normal < 5.7 % Predi abetic 5.7 - 6.4 % Diabetic >or= 6.5 % Please note range changes. Culture, urineOrdered By: Dr Garo Astudillo on 05-26-2022 Bacteria identified Cx Nom (U) Positive [facility] Basophil percentageOrdered B y: Dr. Astudillo on 05-24-2022 Basophil percentage 0-5 SEEN /hpf 0-5 [facility] Bilirubin Test strip Ql (U)O rdered By: Dr. Astudillo on 05-24-2022 Bilirubin Ql (U) Negative Negative [facility] Ketones Test strip Ql (U)Ord ered By: Dr. Astudillo on 05-24-2022 Ketones Ql (U) Negative Negative [facility] Mucus LM Ql (Urine sed)Order ed By: Dr. Astudillo on 05-24-2022 Mucus Ql (Urine sed) 0 SEEN /hpf [facility] Nitrite Test strip Ql (U)Ord ered By: Dr. Astudillo on 05-24-2022 Nitrite Ql (U) Negative Negative [facility] Protein Test strip Ql (U)Ord ered By: Dr. Astudillo on 05-24-2022 Protein Ql (U) Negative Negative [facility] Squamous epithelial cells de tection in urine sediment by light microscopyOrdered By: Dr. Astudillo on 05-24-2022 Epithelial cells.squamous LM Ql (Urine sed) 0 SEEN /hpf 5-10 [facility] Urine blood detectionOrdered By: Dr. Astudillo on 05-24-2022 RBC Ql (U) Negative Negative [facility] RBC Ql (U) 0-5 SEEN /hpf 0-5 [facility] Urine clarityOrdered By: Dr. Astudillo on 05-24-2022 Clarity (U) Clear Clear [facility] Urine color determinationOrd ered By: Dr. Astudillo on 05-24-2022 Color (U) Yellow Yellow [facility] Urine glucose detectionOrder ed By: Dr. Astudillo on 05-24-2022 Glucose Ql (U) Normal mg/dl Normal [facility] Urine leukocyte esterase det ection by dipstickOrdered By: Dr. Astudillo on 05-24-2022 Leukocyte esterase Test strip Ql (U) 25 /ul Negative [facility] Urine pHOrdered By: Dr. Clayton hner on 05-24-2022 pH (U) 5.0 [pH] 5.0 - 8.0 [facility] Urine sediment bacteria coun t by microscopy (number/high power field)Ordered By: Dr. Astudillo on 05-24-2022 Bacteria LM.HPF (Urine sed) [#/Area] RARE /hpf None Seen [facility] Urine specific gravity measu rementOrdered By: Dr. Astudillo on 05-24-2022 Specific gravity (U) [Rel density] 1.020 1.002-1.030 [facility] Urobilinogen Auto test strip Ql (U)Ordered By: Dr. Astudillo on 05-24-2022 Urobilinogen Ql (U) Normal mg/dl Normal [facility] Absolute lymphocyte counton 01-13-2022 Lymphocytes Auto (Unsp spec) [#/Vol] 1.13 10*3/uL 0.83-4.51 [facility] Work Phone: Basophil percentageon 2021 Basophils/100 WBC (Bld) 0.9 % 0-1 [facility] Work Phone: Bilirubin [Mass/Vol] 0.70 mg/dL 0.20-1.00 [facility] Work Phone: Comment on above: For patients on eltr ombopag therapy, use of Dimension [place] TBIL is not recommended. Chloride [Moles/Vol] 105 mmol/L 98-107 [facility] Work Phone: Cholesterol [Mass/Vol] 152 mg/dL <200 [facility] Work Phone: Comment on above: <200 mg/dL Desirable 200-240 mg/dL Borderline >240 mg/dL High Risk Eosinophils/100 WBC (Bld) 1.1 % 0-5 [facility] Work Phone: Glucose [Mass/Vol] 126 mg/dL 74-106 [facility] Work Phone: Comment on above: Fasting Glucose resu lt greater than or equal to 126 mg/dL suggests DIABETES MELLITUS per A.D.A. criteria. Neutrophils (Bld) [#/Vol] 9.2 10*3/uL 2.0-7.7 [facility] Work Phone: Neutrophils/100 WBC (Bld) 80.6 % 47-70 [facility] Work Phone: Potassium [Moles/Vol] 3.9 mmol/L 3.5-5.[address] [facility] Work Phone: Protein [Mass/Vol] 6.9 g/dL 6.4-8.2 [facility] Work Phone: Sodium [Moles/Vol] 138 mmol/L 136-145 [facility] Work Phone: Triglyceride [Mass/Vol] 98 mg/dL <199 [facility] Work Phone: Comment on above: The drugs N-Acetylcy steine and Metamizole may falsely depress this assay.Serum Triglycerides Reference Interval Normal <150 mg/dL Borderline high 150 - 199 mg/dL High 200 - 499 mg/dL Very High > or = 500 mg/dL WBC (Bld) [#/Vol] 11.4 10*3/uL 4.4-11.0 [facility] Work Phone: Blood erythrocytes count (nu mber/volume)on 01-13-2022 RBC (Bld) [#/Vol] 4.50 10*6/uL 4.2-5.4 [facility] Work Phone: Blood hemoglobin measurement (mass/volume)on 01-13-2022 Hemoglobin (Bld) [Mass/Vol] 13.0 g/dL 12.0-15.0 [facility] Work Phone: Blood lymphocytes/100 leukoc yteson 01-13-2022 Lymphocytes/100 WBC (Bld) 9.9 % 19-41 [facility] Work Phone: Blood monocytes/100 leukocyt eson 01-13-2022 Monocytes/100 WBC (Bld) 7.1 % 0-10 [facility] Work Phone: [phone] Blood platelet mean volumeon 01-13-2022 Platelet mean volume (Bld) [Entitic vol] 10.6 fL 6.2-12.0 [facility] Work Phone: [phone] Determination of erythrocyte mean corpuscular volume (MCV)on 01-13-2022 MCV (RBC) [Entitic vol] 88.9 fL 81-99 [facility] Work Phone: [phone] Direct bilirubinon Bilirubin.direct [Mass/Vol] 0.17 mg/dL 0.00-0.30 [facility] Work Phone: [phone] Hematocrit Auto (Bld) [Volum e fraction]on 01-13-2022 Hematocrit (Bld) [Volume fraction] 40.0 % 37-47 [facility] Work Phone: [phone] Laboratory - Chemistry and C hemistry - challengeon 01-13-2022 ALP [Catalytic activity/Vol] 72 U/L 45-117 [facility] Work Phone: [phone] ALT [Catalytic activity/Vol] 27 U/L 13-56 [facility] Work Phone: [phone] CO2 [Moles/Vol] 29.0 mmol/L 21.0-32.0 [facility] Work Phone: [phone] Globulin (S) [Mass/Vol] 3.6 g/dL 2.2-4.2 [facility] Work Phone: [phone] Urea nitrogen/Creatinine [Mass ratio] 25.1 mg/mg 10-20 [facility] Work Phone: [phone] Laboratory - Hematology and Cell countson 01-13-2022 Erythrocyte distribution width (RBC) [Entitic vol] 40.6 fL 35.1-43.9 [facility] Work Phone: [phone] Erythrocyte distribution width (RBC) [Ratio] 12.4 % 11.6-14.6 [facility] Work Phone: [phone] Immature granulocytes/100 WBC (Bld) 0.400 % 0.0-0.9 [facility] Work Phone: [phone] Comment on above: IG% - Immature Granu locytes (promyelocytes, myelocytes and metamyelocytes) > 1% indicates that a LEFT SHIFT is Present. MCH (RBC) [Entitic mass] 28.9 pg 27.0-32.0 [facility] Work Phone: [phone] Nucleated RBC/100 WBC (Bld) [Ratio] 0 % 0-5 [facility] Work Phone: [phone] MCHC Auto (RBC) [Mass/Vol]on 01-13-2022 MCHC (RBC) [Mass/Vol] 32.5 g/dL 32-36 [facility] Work Phone: [phone] No Panel Informationon 01-13 Estimated GFR (MDRD) Amer 76 mL/min >60 [facility] Work Phone: [phone] Comment on above: GFR Calc Estimated GFR (MDRD) Non-Af Amer 63 mL/min >60 [facility] Work Phone: [phone] Comment on above: Non- GFR Calc Platelets bldon 01-13-2022 Platelets (Bld) [#/Vol] 353 10*3/uL 150-450 [facility] Work Phone: [phone] Serum or plasma albumin josué urement (mass/volume)on 01-13-2022 Albumin [Mass/Vol] 3.3 g/dL 3.2-5.0 [facility] Work Phone: [phone] Serum or plasma albumin/glob ulin mass ratioon 01-13-2022 Albumin/Globulin [Mass ratio] 0.9 {ratio} 0.9-2.4 [facility] Work Phone: [phone] Serum or plasma calcium josué urement (mass/volume)on 01-13-2022 Calcium [Mass/Vol] 8.7 mg/dL 8.5-10.1 [facility] Work Phone: [phone] Serum or plasma cholesterol in HDL measurement (mass/volume)on 01-13-2022 Cholesterol in HDL [Mass/Vol] 48 mg/dL >40 [facility] Work Phone: [phone] Comment on above: The drugs N-Acetylcy steine and Metamizole may falsely depress this assay. Reference Range HDL <40 mg/dL Low HDL Cholesterol HDL >or= 60 mg/dL High HDL Cholesterol Serum or plasma cholesterol in VLDL measurement (mass/volume)on 01-13-2022 Cholesterol in VLDL [Mass/Vol] 20 mg/dL 5-40 [facility] Work Phone: [phone] Serum or plasma creatinine m easurement (mass/volume)on 01-13-2022 Creatinine [Mass/Vol] 0.92 mg/dL 0.55-1.02 [facility] Work Phone: [phone] Comment on above: The validity of the calculated GFR & GFRAA in patients over 70 years has not been determined. Clinical correlation is essential. Serum or plasma low density lipoprotein (LDL) cholesterol measurement (mass/volume)on 01-13-2022 Cholesterol in LDL [Mass/Vol] 84 mg/dL 0-130 [facility] Work Phone: [phone] Serum or plasma urea nitroge n measurement (mass/volume)on 01-13-2022 Urea nitrogen [Mass/Vol] 23 mg/dL 7-18 [facility] Work Phone: [phone] Thin prep Papanicolaou smear with manual screeningon 01-13-2022 Thin prep Papanicolaou smear with manual screening 20 U/L 15-37 [facility] Work Phone: [phone] Thin prep Papanicolaou smear with manual screening 4 5-15 [facility] Work Phone: [phone] Basophil percentageon 2021 Basophil percentage 25-50 SEEN /hpf [facility] Work Phone: [phone] Bilirubin Test strip Ql (U)o n 09-11-2021 Bilirubin Ql (U) Negative Negative [facility] Work Phone: [phone] Culture, urineon 09-11-2021 Bacteria identified Cx Nom (U) Positive [facility] Work Phone: [phone] Ketones Test strip Ql (U)on 09-11-2021 Ketones Ql (U) Negative Negative [facility] Work Phone: [phone] Mucus LM Ql (Urine sed)on Mucus Ql (Urine sed) 0 SEEN /hpf [facility] Work Phone: Nitrite Test strip Ql (U)on 09-11-2021 Nitrite Ql (U) Negative Negative [facility] Work Phone: Protein Test strip Ql (U)on 09-11-2021 Protein Ql (U) 15 mg/dl Negative [facility] Work Phone: [phone] Squamous epithelial cells de tection in urine sediment by light microscopyon 09-11-2021 Epithelial cells.squamous LM Ql (Urine sed) 0-5 SEEN /hpf [facility] Work Phone: Urine blood detectionon RBC Ql (U) 25 /ul Negative [facility] Work Phone: RBC Ql (U) 0-5 SEEN /hpf [facility] Work Phone: Urine clarityon 09-11-2021 Clarity (U) Clear Clear [facility] Work Phone: Urine color determinationon 09-11-2021 Color (U) Yellow Yellow [facility] Work Phone: Urine glucose detectionon Glucose Ql (U) Normal mg/dl Normal [facility] Work Phone: Urine leukocyte esterase det ection by dipstickon 09-11-2021 Leukocyte esterase Test strip Ql (U) 500 /ul Negative [facility] Work Phone: Urine pHon 09-11-2021 pH (U) 6.0 [pH] [facility] Work Phone: [phone] Urine sediment bacteria coun t by microscopy (number/high power field)on 09-11-2021 Bacteria LM.HPF (Urine sed) [#/Area] 1 /[HPF] None Seen [facility] Work Phone: Urine specific gravity measu rementon 09-11-2021 Specific gravity (U) [Rel density] 1.010 [facility] Work Phone: [phone] Urobilinogen Auto test strip Ql (U)on 09-11-2021 Urobilinogen Ql (U) Normal mg/dl Normal [facility] Work Phone: Absolute lymphocyte counton 08-27-2021 Lymphocytes Auto (Unsp spec) [#/Vol] 0.94 10*3/uL 0.83-4.51 [facility] Work Phone: Basophil percentageon 2021 Basophil percentage 25-50 SEEN /hpf [facility] Work Phone: Basophils/100 WBC (Bld) 0.8 % 0-1 [facility] Work Phone: Chloride [Moles/Vol] 104 mmol/L 98-107 [facility] Work Phone: Eosinophils/100 WBC (Bld) 0.7 % 0-5 [facility] Work Phone: Glucose [Mass/Vol] 109 mg/dL 74-106 [facility] Work Phone: Comment on above: Fasting Glucose resu lt from 100 to 125 mg/dL suggests IMPAIRED HOMEOSTASIS per A.D.A. criteria. Neutrophils (Bld) [#/Vol] 9.8 10*3/uL 2.0-7.7 [facility] Work Phone: Neutrophils/100 WBC (Bld) 83.4 % 47-70 [facility] Work Phone: Potassium [Moles/Vol] 4.5 mmol/L 3.5-5.1 [facility] Work Phone: Sodium [Moles/Vol] 138 mmol/L 136-145 [facility] Work Phone: WBC (Bld) [#/Vol] 11.7 10*3/uL 4.4-11.0 [facility] Work Phone: Bilirubin Test strip Ql (U)o n 08-27-2021 Bilirubin Ql (U) Negative Negative [facility] Work Phone: Blood erythrocytes count (nu mber/volume)on 08-27-2021 RBC (Bld) [#/Vol] 4.40 10*6/uL 4.2-5.4 [facility] Work Phone: Blood hemoglobin measurement (mass/volume)on 08-27-2021 Hemoglobin (Bld) [Mass/Vol] 13.0 g/dL 12.0-15.0 [facility] Work Phone: Blood lymphocytes/100 leukoc yteson 08-27-2021 Lymphocytes/100 WBC (Bld) 8.0 % 19-41 [facility] Work Phone: Blood monocytes/100 leukocyt eson 08-27-2021 Monocytes/100 WBC (Bld) 6.2 % 0-10 [facility] Work Phone: Blood platelet mean volumeon 08-27-2021 Platelet mean volume (Bld) [Entitic vol] 11.2 fL 6.2-12.0 [facility] Work Phone: Determination of erythrocyte mean corpuscular volume (MCV)on 08-27-2021 MCV (RBC) [Entitic vol] 92.3 fL 81-99 [facility] Work Phone: Hematocrit Auto (Bld) [Volum e fraction]on 08-27-2021 Hematocrit (Bld) [Volume fraction] 40.6 % 37-47 [facility] Work Phone: Ketones Test strip Ql (U)on 08-27-2021 Ketones Ql (U) Negative Negative [facility] Work Phone: Laboratory - Chemistry and C hemistry - challengeon 08-27-2021 CO2 [Moles/Vol] 30.0 mmol/L 21.0-32.0 [facility] Work Phone: Urea nitrogen/Creatinine [Mass ratio] 22.8 mg/mg 10-20 [facility] Work Phone: [phone] Laboratory - Hematology and Cell countson 08-27-2021 Erythrocyte distribution width (RBC) [Entitic vol] 42.3 fL 35.1-43.9 [facility] Work Phone: [phone] Erythrocyte distribution width (RBC) [Ratio] 12.5 % 11.6-14.6 [facility] Work Phone: [phone] Immature granulocytes/100 WBC (Bld) 0.900 % 0.0-0.9 [facility] Work Phone: [phone] Comment on above: IG% - Immature Granu locytes (promyelocytes, myelocytes and metamyelocytes) > 1% indicates that a LEFT SHIFT is Present. MCH (RBC) [Entitic mass] 29.5 pg 27.0-32.0 [facility] Work Phone: [phone] Nucleated RBC/100 WBC (Bld) [Ratio] 0 % 0-5 [facility] Work Phone: [phone] MCHC Auto (RBC) [Mass/Vol]on 08-27-2021 MCHC (RBC) [Mass/Vol] 32.0 g/dL 32-36 [facility] Work Phone: [phone] Mucus LM Ql (Urine sed)on Mucus Ql (Urine sed) 0 SEEN /hpf [facility] Work Phone: [phone] Nitrite Test strip Ql (U)on 08-27-2021 Nitrite Ql (U) Negative Negative [facility] Work Phone: No Panel Informationon 08-27 Estimated GFR (MDRD) Amer 90 mL/min >60 [facility] Work Phone: [phone] Comment on above: GFR Calc Estimated GFR (MDRD) Non-Af Amer 75 mL/min >60 [facility] Work Phone: [phone] Comment on above: Non- GFR Calc Platelets bldon 08-27-2021 Platelets (Bld) [#/Vol] 362 10*3/uL 150-450 [facility] Work Phone: [phone] Protein Test strip Ql (U)on 08-27-2021 Protein Ql (U) 15 mg/dl Negative [facility] Work Phone: [phone] Serum or plasma calcium josué urement (mass/volume)on 08-27-2021 Calcium [Mass/Vol] 9.5 mg/dL 8.5-10.1 [facility] Work Phone: Serum or plasma creatinine m easurement (mass/volume)on 08-27-2021 Creatinine [Mass/Vol] 0.79 mg/dL 0.55-1.02 [facility] Work Phone: Comment on above: The validity of the calculated GFR & GFRAA in patients over 70 years has not been determined. Clinical correlation is essential. Serum or plasma urea nitroge n measurement (mass/volume)on 08-27-2021 Urea nitrogen [Mass/Vol] 18 mg/dL 7-18 [facility] Work Phone: Squamous epithelial cells de tection in urine sediment by light microscopyon 08-27-2021 Epithelial cells.squamous LM Ql (Urine sed) 0-5 SEEN /hpf [facility] Work Phone: Thin prep Papanicolaou smear with manual screeningon 08-27-2021 Thin prep Papanicolaou smear with manual screening 4 5-15 [facility] Work Phone: Urine blood detectionon 08-11 RBC Ql (U) 150 /ul Negative [facility] Work Phone: RBC Ql (U) 10-25 SEEN /hpf [facility] Work Phone: Urine clarityon 08-27-2021 Clarity (U) Sl. Cloudy Clear [facility] Work Phone: Urine color determinationon 08-27-2021 Color (U) Yellow Yellow [facility] Work Phone: Urine glucose detectionon Glucose Ql (U) Normal mg/dl Normal [facility] Work Phone: Urine leukocyte esterase det ection by dipstickon 08-27-2021 Leukocyte esterase Test strip Ql (U) 500 /ul Negative [facility] Work Phone: Urine pHon 08-27-2021 pH (U) 6.0 [pH] [facility] Work Phone: Urine sediment bacteria coun t by microscopy (number/high power field)on 08-27-2021 Bacteria LM.HPF (Urine sed) [#/Area] 0 /[HPF] None Seen [facility] Work Phone: [phone] Urine specific gravity measu rementon 08-27-2021 Specific gravity (U) [Rel density] 1.010 [facility] Work Phone: [phone] Urobilinogen Auto test strip Ql (U)on 08-27-2021 Urobilinogen Ql (U) Normal mg/dl [facility]: [phone] Whole blood hemoglobin A1c/t otal hemoglobin ratio (mass fraction)on 08-27-2021 HbA1c (Bld) [Mass fraction] 5.8 % 3.8-5.6 [facility] Work Phone: [phone] Comment on above: Normal < 5.7 % Predi abetic 5.7 - 6.4 % Diabetic >or= 6.5 % Please note range changes. Basophil percentageon 2021 WBC (Bld) [#/Vol] 21.9 10*3/uL 4.4-11.0 [facility] Work Phone: [phone] Blood erythrocytes count (nu mber/volume)on 07-31-2021 RBC (Bld) [#/Vol] 3.61 10*6/uL 4.2-5.4 [facility] Work Phone: [phone] Blood hemoglobin measurement (mass/volume)on 07-31-2021 Hemoglobin (Bld) [Mass/Vol] 10.5 g/dL 12.0-15.0 [facility] Work Phone: [phone] Blood platelet mean volumeon 07-31-2021 Platelet mean volume (Bld) [Entitic vol] 10.4 fL 6.2-12.0 [facility] Work Phone: [phone] Determination of erythrocyte mean corpuscular volume (MCV)on 07-31-2021 MCV (RBC) [Entitic vol] 87.5 fL 81-99 [facility] Work Phone: [phone] Hematocrit Auto (Bld) [Volum e fraction]on 07-31-2021 Hematocrit (Bld) [Volume fraction] 31.6 % 37-47 [facility] Work Phone: Laboratory - Hematology and Cell countson 07-31-2021 Erythrocyte distribution width (RBC) [Entitic vol] 39.5 fL 35.1-43.9 [facility] Work Phone: Erythrocyte distribution width (RBC) [Ratio] 12.2 % 11.6-14.6 [facility] Work Phone: MCH (RBC) [Entitic mass] 29.1 pg 27.0-32.0 [facility] Work Phone: MCHC Auto (RBC) [Mass/Vol]on 07-31-2021 MCHC (RBC) [Mass/Vol] 33.2 g/dL 32-36 [facility] Work Phone: Platelets bldon 07-31-2021 Platelets (Bld) [#/Vol] 262 10*3/uL 150-450 [facility] Work Phone: Glucose Glucometer (BldC) [M ass/Vol]on 07-30-2021 Glucose [Mass/Vol] 120 mg/dL 70-110 [facility] Work Phone: Comment on above: MANAGEMENT OF PATIEN T CARE PER NURSING PROTOCOL Laboratory - Chemistry and C hemistry - challengeon 07-23-2021 Magnesium [Mass/Vol] 2.1 mg/dL [facility] Work Phone: Comment on above: Performed at: - [address] [id number] Director: Clarke Winter PhD, Phone: [phone] Absolute lymphocyte counton 07-22-2021 Lymphocytes Auto (Unsp spec) [#/Vol] 1.17 10*3/uL 0.83-4.51 [facility] Work Phone: Activated partial thrombopla stin time (aPTT) in platelet poor plasma by coagulation aon 07-22-2021 aPTT Coag (PPP) [Time] 27.6 s 24.1-36.2 [facility] Work Phone: Basophil percentageon 2021 Basophils/100 WBC (Bld) 0.9 % 0-1 [facility] Work Phone: Bilirubin [Mass/Vol] 0.70 mg/dL 0.20-1.00 [facility] Work Phone: Comment on above: For patients on eltr ombopag therapy, use of Dimension [place] TBIL is not recommended. Chloride [Moles/Vol] 104 mmol/L 98-107 [facility] Work Phone: Eosinophils/100 WBC (Bld) 1.1 % 0-5 [facility] Work Phone: Glucose [Mass/Vol] 120 mg/dL 74-106 [facility] Work Phone: Comment on above: Fasting Glucose resu lt from 100 to 125 mg/dL suggests IMPAIRED HOMEOSTASIS per A.D.A. criteria. Neutrophils (Bld) [#/Vol] 7.2 10*3/uL 2.0-7.7 [facility] Work Phone: Neutrophils/100 WBC (Bld) 78.3 % 47-70 [facility] Work Phone: Potassium [Moles/Vol] 4.5 mmol/L 3.5-5.[address] [facility] Work Phone: Protein [Mass/Vol] 7.3 g/dL 6.4-8.2 [facility] Work Phone: Sodium [Moles/Vol] 138 mmol/L 136-145 [facility] Work Phone: WBC (Bld) [#/Vol] 9.2 10*3/uL 4.4-11.0 [facility] Work Phone: Blood erythrocytes count (nu mber/volume)on 07-22-2021 RBC (Bld) [#/Vol] 4.83 10*6/uL 4.2-5.[facility] Blood hemoglobin measurement (mass/volume)on 07-22-2021 Hemoglobin (Bld) [Mass/Vol] 13.7 g/dL 12.0-15.0 [facility] Work Phone: Blood lymphocytes/100 leukoc yteson 07-22-2021 Lymphocytes/100 WBC (Bld) 12.7 % 19-41 [facility] Work Phone: Blood monocytes/100 leukocyt eson 07-22-2021 Monocytes/100 WBC (Bld) 6.6 % 0-10 [facility] Work Phone: Blood platelet mean volumeon 07-22-2021 Platelet mean volume (Bld) [Entitic vol] 10.4 fL 6.2-12.0 [facility] Work Phone: Determination of erythrocyte mean corpuscular volume (MCV)on 07-22-2021 MCV (RBC) [Entitic vol] 88.6 fL 81-99 [facility] Work Phone: Hematocrit Auto (Bld) [Volum e fraction]on 07-22-2021 Hematocrit (Bld) [Volume fraction] 42.8 % 37-47 [facility] Work Phone: INR in Blood by Coagulation assayon 07-22-2021 INR Coag (Bld) [Relative time] 1.0 {INR} [facility] Work Phone: Laboratory - Chemistry and C hemistry - challengeon 07-22-2021 ALP [Catalytic activity/Vol] 82 U/L 45-117 [facility] Work Phone: ALT [Catalytic activity/Vol] 35 U/L 13-56 [facility] Work Phone: CO2 [Moles/Vol] 32.0 mmol/L 21.0-32.0 [facility] Work Phone: Globulin (S) [Mass/Vol] 3.9 g/dL 2.2-4.2 [facility] Work Phone: Urea nitrogen/Creatinine [Mass ratio] 22.0 mg/mg 10-20 [facility] Work Phone: [phone] Laboratory - Coagulationon 0 07-22-2021 PT Coag (PPP) [Time] 12.9 s 11.7-14.9 [facility] Work Phone: [phone] Laboratory - Hematology and Cell countson 07-22-2021 Erythrocyte distribution width (RBC) [Entitic vol] 40.3 fL 35.1-43.9 [facility] Work Phone: [phone] Erythrocyte distribution width (RBC) [Ratio] 12.3 % 11.6-14.6 [facility] Work Phone: [phone] Immature granulocytes/100 WBC (Bld) 0.400 % 0.0-0.9 [facility] Work Phone: [phone] Comment on above: IG% - Immature Granu locytes (promyelocytes, myelocytes and metamyelocytes) > 1% indicates that a LEFT SHIFT is Present. MCH (RBC) [Entitic mass] 28.4 pg 27.0-32.0 [facility] Work Phone: [phone] Nucleated RBC/100 WBC (Bld) [Ratio] 0 % 0-5 [facility] Work Phone: [phone] MCHC Auto (RBC) [Mass/Vol]on 07-22-2021 MCHC (RBC) [Mass/Vol] 32.0 g/dL 32-36 [facility] Work Phone: [phone] Panel Informationon 07-22 Estimated GFR (MDRD) Amer 82 mL/min >60 [facility] Work Phone: [phone] Comment on above: GFR Calc Estimated GFR (MDRD) Non-Af Amer 68 mL/min >60 [facility] Work Phone: [phone] Comment on above: Non- GFR Calc Platelets bldon 07-22-2021 Platelets (Bld) [#/Vol] 384 10*3/uL 150-450 [facility] Work Phone: [phone] Serum or plasma albumin josué urement (mass/volume)on 07-22-2021 Albumin [Mass/Vol] 3.4 g/dL 3.2-5.0 [facility] Work Phone: Serum or plasma albumin/glob ulin mass ratioon 07-22-2021 Albumin/Globulin [Mass ratio] 0.9 {ratio} 0.9-2.4 [facility] Work Phone: Serum or plasma calcium josué urement (mass/volume)on 07-22-2021 Calcium [Mass/Vol] 9.4 mg/dL 8.5-10.1 [facility] Work Phone: Serum or plasma creatinine m easurement (mass/volume)on 07-22-2021 Creatinine [Mass/Vol] 0.86 mg/dL 0.55-1.02 [facility] Work Phone: Comment on above: The validity of the calculated GFR & GFRAA in patients over 70 years has not been determined. Clinical correlation is essential. Serum or plasma urea nitroge n measurement (mass/volume)on 07-22-2021 Urea nitrogen [Mass/Vol] 19 mg/dL 7-18 [facility] Work Phone: Thin prep Papanicolaou smear with manual screeningon 07-22-2021 Thin prep Papanicolaou smear with manual screening 17 U/L 15-37 [facility] Work Phone: Thin prep Papanicolaou smear with manual screening 2 5-15 [facility] Work Phone: Basophil percentageon 2021 Bilirubin [Mass/Vol] 0.60 mg/dL 0.20-1.00 [facility] Work Phone: Comment on above: For patients on eltr ombopag therapy, use of Dimension [place] TBIL is not recommended. Cholesterol [Mass/Vol] 165 mg/dL <200 [facility] Work Phone: Comment on above: <200 mg/dL Desirable 200-240 mg/dL Borderline >240 mg/dL High Risk Protein [Mass/Vol] 6.9 g/dL 6.4-8.2 [facility] Work Phone: [phone] Triglyceride [Mass/Vol] 107 mg/dL [facility] Work Phone: Comment on above: The drugs N-Acetylcy steine and Metamizole may falsely depress this assay.Serum Triglycerides Reference Interval Normal <150 mg/dL Borderline high 150 - 199 mg/dL High 200 - 499 mg/dL Very High > or = 500 mg/dL Direct bilirubinon Bilirubin.direct [Mass/Vol] 0.14 mg/dL 0.00-0.30 [facility] Work Phone: [phone] Laboratory - Chemistry and C hemistry - challengeon 07-08-2021 ALP [Catalytic activity/Vol] 78 U/L 45-117 [facility] Work Phone: [phone] ALT [Catalytic activity/Vol] 30 U/L 13-56 [facility] Work Phone: [phone] Globulin (S) [Mass/Vol] 3.6 g/dL 2.2-4.2 [facility] Work Phone: [phone] Magnesium [Mass/Vol] 2.3 mg/dL 1.6-2.6 [facility] Work Phone: [phone] Serum or plasma albumin josué urement (mass/volume)on 07-08-2021 Albumin [Mass/Vol] 3.3 g/dL 3.2-5.0 [facility] Work Phone: [phone] Serum or plasma cholesterol in HDL measurement (mass/volume)on 07-08-2021 Cholesterol in HDL [Mass/Vol] 51 mg/dL [facility] Work Phone: [phone] Comment on above: The drugs N-Acetylcy steine and Metamizole may falsely depress this assay. Reference Range HDL <40 mg/dL Low HDL Cholesterol HDL >or= 60 mg/dL High HDL Cholesterol Serum or plasma cholesterol in VLDL measurement (mass/volume)on 07-08-2021 Cholesterol in VLDL [Mass/Vol] 21 mg/dL 5-40 [facility] Work Phone: [phone] Serum or plasma low density lipoprotein (LDL) cholesterol measurement (mass/volume)on 07-08-2021 Cholesterol in LDL [Mass/Vol] 93 mg/dL 0-130 [facility] Work Phone: Thin prep Papanicolaou smear with manual screeningon 07-08-2021 Thin prep Papanicolaou smear with manual screening 17 U/L 15-37 [facility] Work Phone: Vital Signs Date Time Vital Sign Value Performing Clinician Kaylai freddiey 02-04-2025 07:55-0400 Body height 157.[address] Cristal Astudillo MD Work Phone: [facility] 02-04-2025 07:55-0400 Body mass index (BMI) [Ratio] 22.1 kg/m2 Dr. Cristal Astudillo MD Work Phone: [facility] 02-04-2025 07:55-0400 Body temperature 97.8 [degF] Dr. Cristal Astudillo MD Work Phone: [facility] 02-04-2025 07:55-0400 Body weight 54.[address] Cristal Astudillo MD Work Phone: [facility] 02-04-2025 07:55-0400 Diastolic blood pressure 72 mm[Hg] Dr. Cristal Astudillo MD Work Phone: [facility] 02-04-2025 07:55-0400 Heart rate 70 /min Dr. Cristal Astudillo MD Work Phone: [facility] 02-04-2025 07:55-0400 Respiratory rate 16 /min Dr. Cristal Astudillo MD Work Phone: [facility] 02-04-2025 07:55-0400 SaO2% (BldA) [Mass fraction] 95 % Dr. Cristal Astudillo MD Work Phone: [facility] 02-04-2025 07:55-0400 Systolic blood pressure 116 mm[Hg] Dr. Cristal Astudillo MD Work Phone: [facility] 10-08-2024 13:30-0400 Body temperature 97.8 [degF] Dr. Cristal Astudillo MD Work Phone: [facility] 10-08-2024 13:30-0400 Diastolic blood pressure 66 mm[Hg] Dr. Cristal Astudillo MD Work Phone: [facility] 10-08-2024 13:30-0400 Heart rate 77 /min Dr. Cristal Astudillo MD Work Phone: [facility] 10-08-2024 13:30-0400 SaO2% (BldA) [Mass fraction] 98 % Dr. Cristal Astudillo MD Work Phone: [facility] 10-08-2024 13:30-0400 Systolic blood pressure 124 mm[Hg] Dr. Cristal Astudillo MD Work Phone: [facility] 09-06-2024 09:32-0400 Body height 157.[address] Cristal Astudillo MD Work Phone: [facility] 09-06-2024 09:32-0400 Body mass index (BMI) [Ratio] 21.9 kg/m2 Dr. Cristal Astudillo MD Work Phone: [facility] 09-06-2024 09:32-0400 Body weight 54.[address] Cristal Astudillo MD Work Phone: [facility] 09-06-2024 09:32-0400 Diastolic blood pressure 66 mm[Hg] Dr. Cristal Astudillo MD Work Phone: [facility] 09-06-2024 09:32-0400 Heart rate 65 /min Dr. Cristal Astudillo MD Work Phone: [facility] 09-06-2024 09:32-0400 Respiratory rate 16 /min Dr. Cirstal Astudillo MD Work Phone: [facility] 09-06-2024 09:32-0400 Systolic blood pressure 117 mm[Hg] Dr. Cristal Astudillo MD Work Phone: [facility] 08-23-2024 08:04-0400 Body height 157.[address] Cristal Astudillo MD Work Phone: [facility] 08-23-2024 08:04-0400 Body mass index (BMI) [Ratio] 22.1 kg/m2 Dr. Cristal Astudillo MD Work Phone: [facility] 08-23-2024 08:04-0400 Body temperature 98 [degF] Dr. Cristal Astudillo MD Work Phone: [facility] 08-23-2024 08:04-0400 Body weight 54.[address] Cristal Astudillo MD Work Phone: [facility] 08-23-2024 08:04-0400 Diastolic blood pressure 70 mm[Hg] Dr. Cristal Astudillo MD Work Phone: [facility] 08-23-2024 08:04-0400 Heart rate 73 /min Dr. Cristal Astudillo MD Work Phone: [facility] 08-23-2024 08:04-0400 Respiratory rate 16 /min Dr. Cristal Astudillo MD Work Phone: [facility] 08-23-2024 08:04-0400 SaO2% (BldA) [Mass fraction] 98 % Dr. Cristal Astudillo MD Work Phone: [facility] 08-23-2024 08:04-0400 Systolic blood pressure 119 mm[Hg] Dr. Cristal Astudillo MD Work Phone: [facility] 08-06-2024 07:59-0500 Body mass index (BMI) [Ratio] 22.1 kg/m2 Dr. Cristal Astudillo MD Work Phone: [facility] 08-06-2024 07:59-0500 Body temperature 98 [degF] Dr. Cristal Astudillo MD Work Phone: [facility] 08-06-2024 07:59-0500 Body weight 55.[address] Cristal Astudillo MD Work Phone: [facility] 08-06-2024 07:59-0500 Diastolic blood pressure 76 mm[Hg] Dr. Cristal Astudillo MD Work Phone: [facility] 08-06-2024 07:59-0500 Heart rate 71 /min Dr. Cristal Astudillo MD Work Phone: [facility] 08-06-2024 07:59-0500 Respiratory rate 16 /min Dr. Cristal Astudillo MD Work Phone: [facility] 08-06-2024 07:59-0500 SaO2% (BldA) [Mass fraction] 98 % Dr. Cristal Astudillo MD Work Phone: [facility] 08-06-2024 07:59-0500 Systolic blood pressure 134 mm[Hg] Dr. Cristal Astudillo MD Work Phone: [facility] 08-03-2023 08:04-0500 Body height 157.[address] Cristal Astudillo Work Phone: [facility] 08-03-2023 08:04-0500 Body mass index (BMI) [Ratio] 21.8 kg/m2 Dr. Cristal Astudillo Work Phone: [facility] 08-03-2023 08:04-0500 Body temperature 97.8 [degF] Dr. Cristal Astudillo Work Phone: [facility] 08-03-2023 08:04-0500 Body weight 54.[address] Cristal Astudillo Work Phone: [facility] 08-03-2023 08:04-0500 Diastolic blood pressure 66 mm[Hg] Dr. Cristal Astudillo Work Phone: [facility] 08-03-2023 08:04-0500 Heart rate 74 /min Dr. Cristal Astudillo Work Phone: [facility] 02-21-2024 08:04-0500 Respiratory rate 16 /min Dr. Cristal Astudillo Work Phone: [facility] 08-03-2023 08:04-0500 SaO2% (BldA) [Mass fraction] 95 % Dr. Cristal Astudillo Work Phone: [facility] 08-03-2023 08:04-0500 Systolic blood pressure 121 mm[Hg] Dr. Cristal Astudillo Work Phone: [facility] 07-21-2023 09:15-0500 Diastolic blood pressure 63 mm[Hg] Dr. Cristal Astudillo Work Phone: [facility] 07-21-2023 09:15-0500 Heart rate 74 /min Dr. Cristal Astudillo Work Phone: [facility] 07-21-2023 09:15-0500 Respiratory rate 16 /min Dr. Cristal Astudillo Work Phone: [facility] 07-21-2023 09:15-0500 Systolic blood pressure 133 mm[Hg] Dr. Cristal Astudillo Work Phone: [facility] 07-21-2023 08:49-0500 Body mass index (BMI) [Ratio] 21.2 kg/m2 Dr. Cristal Astudillo Work Phone: [facility] 07-21-2023 08:49-0500 Body weight 52.[address] Cristal Astudillo Work Phone: [facility] 03-01-2023 09:15-0400 Diastolic blood pressure 51 mm[Hg] Dr. Cristal Astudillo Work Phone: [facility] 03-01-2023 09:15-0400 Heart rate 60 /min Dr. Cristal Astudillo Work Phone: [facility] 03-01-2023 09:15-0400 Respiratory rate 16 /min Dr. Cristal Astudillo Work Phone: [facility] 03-01-2023 09:15-0400 SaO2% (BldA) [Mass fraction] 98 % Dr. Cristal Astudillo Work Phone: [facility] 03-01-2023 09:15-0400 Systolic blood pressure 125 mm[Hg] Dr. Cristal Astudillo Work Phone: [facility] 03-01-2023 09:00-0400 Body temperature 97.5 [degF] Dr. Cristal Astudillo Work Phone: [facility] 03-01-2023 08:01-0400 Body height 157.[address] Cristal Astudillo Work Phone: [facility] 03-01-2023 08:01-0400 Body mass index (BMI) [Ratio] 20.5 kg/m2 Dr. Cristal Astudillo Work Phone: [facility] 03-01-2023 08:01-0400 Body weight [address] Cristal Astudillo Work Phone: [facility] 02-24-2023 07:58-0400 Body mass index (BMI) [Ratio] 21.5 kg/m2 Dr. Cristal Astudillo Work Phone: [facility] 02-24-2023 07:58-0400 Body temperature 96.5 [degF] Dr. Cristal Astudillo Work Phone: [facility] 02-24-2023 07:58-0400 Body weight 53.[address] Cristal Astudillo Work Phone: [facility] 02-24-2023 07:58-0400 Diastolic blood pressure 73 mm[Hg] Dr. Cristal Astudillo Work Phone: [facility] 02-24-2023 07:58-0400 Heart rate 67 /min Dr. Cristal Astudillo Work Phone: [facility] 02-24-2023 07:58-0400 Respiratory rate 17 /min Dr. Cristal Astudillo Work Phone: [facility] 02-24-2023 07:58-0400 SaO2% (BldA) [Mass fraction] 100 % Dr. Cristal Astudillo Work Phone: [facility] 02-24-2023 07:58-0400 Systolic blood pressure 146 mm[Hg] Dr. Cristal Astudillo Work Phone: [facility] 02-17-2023 09:07-0400 Body mass index (BMI) [Ratio] 21.3 kg/m2 Dr. Cristal Astudillo Work Phone: [facility] 02-17-2023 09:07-0400 Body temperature 98.2 [degF] Dr. Cristal Astudillo Work Phone: [facility] 02-17-2023 09:07-0400 Body weight 52.[address] Cristal Astudillo Work Phone: [facility] 02-17-2023 09:07-0400 Diastolic blood pressure 73 mm[Hg] Dr. Cristal Astudillo Work Phone: [facility] 02-17-2023 09:07-0400 Heart rate 79 /min Dr. Cristal Astudillo Work Phone: [facility] 02-17-2023 09:07-0400 Respiratory rate 18 /min Dr. Cristal Astudillo Work Phone: [facility] 02-17-2023 09:07-0400 SaO2% (BldA) [Mass fraction] 96 % Dr. Cristal Astudillo Work Phone: [facility] 02-17-2023 09:07-0400 Systolic blood pressure 116 mm[Hg] Dr. Cristal Astudillo Work Phone: [facility] 01-31-2023 08:04-0400 Body mass index (BMI) [Ratio] 21.4 kg/m2 Dr. Cristal Astudillo Work Phone: [facility] 01-31-2023 08:04-0400 Body temperature 97.9 [degF] Dr. Cristal Astudillo Work Phone: [facility] 01-31-2023 08:04-0400 Body weight 53.[address] Cristal Astudillo Work Phone: [facility] 01-31-2023 08:04-0400 Diastolic blood pressure 76 mm[Hg] Dr. Cristal Astudillo Work Phone: [facility] 01-31-2023 08:04-0400 Heart rate 77 /min Dr. Cristal Astudillo Work Phone: [facility] 01-31-2023 08:04-0400 Respiratory rate 16 /min Dr. Cristal Astudillo Work Phone: [facility] 01-31-2023 08:04-0400 SaO2% (BldA) [Mass fraction] 98 % Dr. Cristal Astudillo Work Phone: [facility] 01-31-2023 08:04-0400 Systolic blood pressure 123 mm[Hg] Dr. Cristal Astudillo Work Phone: [facility] 08-04-2022 07:56-0500 Body temperature 97.6 [degF] Dr. Cristal Astudillo Work Phone: [facility] 08-04-2022 07:56-0500 Body weight 53.[address] Cristal Astudillo Work Phone: [facility] 08-04-2022 07:56-0500 Diastolic blood pressure 74 mm[Hg] Dr. Cristal Astudillo Work Phone: [facility] 08-04-2022 07:56-0500 Heart rate 75 /min Dr. Cristal Astudillo Work Phone: [facility] 08-04-2022 07:56-0500 Respiratory rate 16 /min Dr. Cristal Astudillo Work Phone: [facility] 08-04-2022 07:56-0500 SaO2% (BldA) [Mass fraction] 97 % Dr. Cristal Astudillo Work Phone: [facility] 08-04-2022 07:56-0500 Systolic blood pressure 138 mm[Hg] Dr. Cristal Astudillo Work Phone: [facility] 07-20-2022 10:52-0500 Diastolic blood pressure 73 mm[Hg] Dr. Cristal Astudillo Work Phone: [facility] 07-20-2022 10:52-0500 Heart rate 70 /min Dr. Cristal Astudillo Work Phone: [facility] 07-20-2022 10:52-0500 Systolic blood pressure 143 mm[Hg] Dr. Cristal Astudillo Work Phone: [facility] 07-20-2022 10:37-0500 Body height 157.[address] Cristal Astudillo Work Phone: [facility] 07-20-2022 10:37-0500 Body mass index (BMI) [Ratio] 21.5 kg/m2 Dr. Cristal Astudillo Work Phone: [facility] 07-20-2022 10:37-0500 Body weight 53.[address] Cristal Astudillo Work Phone: [facility] 07-20-2022 10:37-0500 Respiratory rate 16 /min Dr. Cristal Astudillo Work Phone: [facility] 02-03-2022 08:51-0400 Body height 157.[address] Cristal Astudillo Work Phone: [facility] Work Phone: 02-03-2022 08:51-0400 Body mass index (BMI) [Ratio] 21.4 kg/m2 Dr. Cristal Astudillo Work Phone: [facility] Work Phone: 02-03-2022 08:51-0400 Body temperature 97.9 [degF] Dr. Cristal Astudillo Work Phone: [facility] Work Phone: 02-03-2022 08:51-0400 Body weight 53.[address] Cristal Astudillo Work Phone: [facility] Work Phone: 02-03-2022 08:51-0400 Diastolic blood pressure 68 mm[Hg] Dr. Cristal Astudillo Work Phone: [facility] Work Phone: 02-03-2022 08:51-0400 Heart rate 68 /min Dr. Cristal Astudillo Work Phone: [facility] Work Phone: 02-03-2022 08:51-0400 Respiratory rate 16 /min Dr. Cristal Astudillo Work Phone: [facility] Work Phone: 02-03-2022 08:51-0400 SaO2% (BldA) [Mass fraction] 98 % Dr. Cristal Astudillo Work Phone: [facility] Work Phone: 02-03-2022 08:51-0400 Systolic blood pressure 126 mm[Hg] Dr. Cristal Astudillo Work Phone: [facility] Work Phone: 09-11-2021 08:30-0400 Body height 157.[address] Cristal Astudillo Work Phone: [facility] Work Phone: 09-11-2021 08:30-0400 Body mass index (BMI) [Ratio] 21.5 kg/m2 Dr. Cristal Astudillo Work Phone: [facility] Work Phone: 09-11-2021 08:30-0400 Body temperature 97.9 [degF] Dr. Cristal Astudillo Work Phone: [facility] Work Phone: 09-11-2021 08:30-0400 Body weight 53.[address] Cristal Astudillo Work Phone: [facility] Work Phone: 09-11-2021 08:30-0400 Diastolic blood pressure 70 mm[Hg] Dr. Cristal Astudillo Work Phone: [facility] Work Phone: 09-11-2021 08:30-0400 Heart rate 83 /min Dr. Cristal Astudillo Work Phone: [facility] Work Phone: 09-11-2021 08:30-0400 Respiratory rate 14 /min Dr. Cristal Astudillo Work Phone: [facility] Work Phone: 09-11-2021 08:30-0400 SaO2% (BldA) [Mass fraction] 99 % Dr. Cristal Astudillo Work Phone: [facility] Work Phone: 09-11-2021 08:30-0400 Systolic blood pressure 136 mm[Hg] Dr. Cristal Astudillo Work Phone: [facility] Work Phone: 08-27-2021 08:34-0400 Body height 157.[address] Cristal Astudillo Work Phone: [facility] Work Phone: 08-27-2021 08:34-0400 Body mass index (BMI) [Ratio] 21.6 kg/m2 Dr. Cristal Astudillo Work Phone: [facility] Work Phone: 08-27-2021 08:34-0400 Body temperature 96.3 [degF] Dr. Cristal Astudillo Work Phone: [facility] Work Phone: 08-27-2021 08:34-0400 Body weight 53.[address] Cristal Astudillo Work Phone: [facility] Work Phone: 08-27-2021 08:34-0400 Diastolic blood pressure 64 mm[Hg] Dr. Cristal Astudillo Work Phone: [facility] Work Phone: 08-27-2021 08:34-0400 Heart rate 71 /min Dr. Cristal Astudillo Work Phone: [facility] Work Phone: 08-27-2021 08:34-0400 Respiratory rate 16 /min Dr. Cristal Astudillo Work Phone: [facility] Work Phone: 08-27-2021 08:34-0400 SaO2% (BldA) [Mass fraction] 99 % Dr. Cristal Astudillo Work Phone: [facility] Work Phone: 08-27-2021 08:34-0400 Systolic blood pressure 130 mm[Hg] Dr. Cristal Astudillo Work Phone: [facility] Work Phone: 07-31-2021 06:34-0500 Body temperature 97.9 [degF] Dr. Cristal Astudillo Work Phone: [facility] Work Phone: 07-31-2021 06:34-0500 Diastolic blood pressure 53 mm[Hg] Dr. Cristal Astudillo Work Phone: [facility] Work Phone: 07-31-2021 06:34-0500 Heart rate 64 /min Dr. Cristal Astudillo Work Phone: [facility] Work Phone: 07-31-2021 06:34-0500 Respiratory rate 16 /min Dr. Cristal Astudillo Work Phone: [facility] Work Phone: 07-31-2021 06:34-0500 SaO2% (BldA) [Mass fraction] 97 % Dr. Cristal Astudillo Work Phone: [facility] Work Phone: 07-31-2021 06:34-0500 Systolic blood pressure 112 mm[Hg] Dr. Cristal Astudillo Work Phone: [facility] Work Phone: 07-30-2021 10:18-0500 Body mass index (BMI) [Ratio] 21.3 kg/m2 Dr. Cristal Astudillo Work Phone: [facility] Work Phone: 07-30-2021 10:18-0500 Body weight [address] Cristal Astudillo Work Phone: [facility] Work Phone: 07-16-2021 08:03-0500 Diastolic blood pressure 68 mm[Hg] Dr. Cristal Astudillo Work Phone: [facility] Work Phone: 07-16-2021 08:03-0500 Heart rate 82 /min Dr. Cristal Astudillo Work Phone: [facility] Work Phone: 07-16-2021 08:03-0500 Systolic blood pressure 135 mm[Hg] Dr. Cristal Astudillo Work Phone: [facility] Work Phone: 07-16-2021 07:49-0500 Body weight 53.[address] Cristal Astudillo Work Phone: [facility] Work Phone: 07-16-2021 07:49-0500 Respiratory rate 16 /min Dr. Cristal Astudillo Work Phone: [facility] Work Phone: 06-19-2020 06:59-0500 Body mass index (BMI) [Ratio] 21 kg/m2 Dr. Cristal Astudillo Work Phone: [facility] Work Phone: Encounters Encounter Date Encounter Type Care Provider Facility Start: 02-04-2025 End: 02-04-[address] Cristal Astudillo MD -[facility] Work Phone: Start: 02-04-2025 End: 02-04-[address] Cristal Astudillo MD Work Phone: -[facility] Start: 01-03-2025 End: 01-03-[address] Cristal Astudillo MD Work Phone: -Laboratory Start: 01-03-2025 End: 01-03-[address] Morelia Higgins MD -Laboratory Work Phone: Start: 01-03-2025 End: 01-03-2025 ambulatory Cristal Astudillo Facility:[facility] Start: 10-12-2024 End: 10-12-[address] Cristal Astudillo MD Work Phone: [facility] Work Phone: Start: 10-12-2024 End: 10-12-[address] Morelia Higgins MD -Laboratory Work Phone: Start: 10-12-2024 End: 10-12-2024 ambulatory Cristal Astudillo Facility:[facility] Start: 10-08-2024 End: 10-08-2024 Patient encounter procedure Zafar Tolliver [place] -[facility] Work Phone: Start: 10-08-2024 End: 10-08-2024 ambulatory [facility] Facility:[facility] Start: 09-07-2024 End: 09-07-[address] Cristal Astudillo MD Work Phone: [facility] Work Phone: Start: 09-07-2024 End: 09-07-[address] Cristal Astudillo MD -Laboratory Work Phone: Start: 09-06-2024 End: 09-06-[address] Marcial Moe MD -[facility] Work Phone: Start: 09-06-2024 End: 09-07-2024 ambulatory [facility] Facility:[facility] Start: 08-23-2024 End: 08-23-[address] Cristal Astudillo MD -[facility] Work Phone: Start: 08-23-2024 End: 08-23-[address] [facility] Start: 08-16-2024 End: 08-16-[address] Cristal Astudillo MD Work Phone: [facility] Work Phone: Start: 08-16-2024 End: 08-16-[address] Cristal Astudillo MD -Outpatient Breast Imaging Work Phone: Start: 08-16-2024 End: 08-16-2024 [facility] Start: 08-06-2024 End: 08-06-[address] Cristal Astudillo MD -[facility] Work Phone: Start: 08-06-2024 End: 08-06-2024 [facility] Start: 08-02-2024 End: 08-02-[address] Morelia Higgins MD -Laboratory Work Phone: Start: 08-02-2024 End: 08-02-2024 ambulatory [facility] Facility:[facility] Start: 06-22-2024 End: 06-22-2024 Patient encounter procedure Sathish MORGAN -Laboratory Work Phone: Start: 06-22-2024 End: 06-22-2024 ambulatory [facility] Facility:[facility] Start: 05-08-2024 End: 05-08-[address] Morelia Higgins MD -Laboratory Work Phone: Start: 05-08-2024 End: 05-08-[address] [facility] Facility:[facility] Start: 03-28-[address] [facility] Facility :[facility] Start: 03-28-2024 End: 03-28-2024 ambulatory [facility] Facility:[facility] Start: 03-07-2024 End: 03-07-[address] [facility] Start: 08-19-2023 End: 08-19-[address] Cristal Astudillo Work Phone: [facility] Work Phone: Start: 08-19-2023 End: 08-19-[address] Cristal Astudillo Work Phone: [facility]-Laboratory Work Phone: Start: 08-16-2023 End: 08-16-[address] Cristal Astudillo Work Phone: [facility] Work Phone: Start: 08-16-2023 End: 08-16-[address] Cristal Astudillo Work Phone: [facility]-Outpatient Breast Imaging Work Phone: Start: 08-03-2023 End: 08-03-[address] Cristal Astudillo Work Phone: [facility] Work Phone: Start: 07-21-2023 End: 07-21-[address] Cristal Astudillo Work Phone: [facility] Work Phone: Start: 07-07-2023 End: 07-07-2023 ambulatory [facility] Work Phone: Start: 07-07-2023 End: 07-07-2023 Patient encounter procedure [facility] Work Phone: Start: 05-18-2023 End: 05-18-[address] Cristal Astudillo Work Phone: [facility] Work Phone: Start: 05-18-2023 End: 05-18-[address] Cristal Astudillo Work Phone: [facility]-Laboratory Work Phone: Start: 03-22-2023 End: 03-22-[address] Cristal Astudillo Work Phone: [facility] Work Phone: Start: 03-22-2023 End: 03-22-[address] [facility] Start: 03-01-2023 Non-patient / Non-visit Dr. Allyson Astudillo Work Phone: [facility] Start: 03-01-2023 End: 03-01-2023 Admission to same day surgery center Dr. Cristal Astudillo Work Phone: [facility]-Endoscopy Work Phone: Start: 03-01-2023 End: 03-01-[address] Cristal Astudillo Work Phone: [facility] Work Phone: Start: 02-24-2023 End: 02-24-[address] Cristal Astudillo Work Phone: [facility] Work Phone: Start: 02-17-2023 End: 02-17-[address] Cristal Astudillo Work Phone: [facility] Work Phone: Start: 01-31-2023 End: 01-31-[address] Cristal Astudillo Work Phone: [facility] Work Phone: Start: 01-11-2023 End: 01-11-2023 ambulatory [facility] Work Phone: Start: 01-11-2023 End: 01-11-2023 Patient encounter procedure [facility] Work Phone: Start: 11-22-2022 End: 11-22-2022 Patient encounter procedure [facility] Work Phone: Start: 08-11-2022 End: 08-11-[address] Cristal Astudillo Work Phone: [facility] Work Phone: Start: 08-11-2022 End: 08-11-[address] Cristal Astudillo Work Phone: [facility]-Outpatient Breast Imaging Start: 08-04-2022 End: 08-04-[address] Crsital Astudillo Work Phone: [facility] Start: 07-20-2022 End: 07-20-[address] Cristal Astudillo Work Phone: [facility] Start: 07-14-2022 End: 07-14-[address] Cristal Astudillo Work Phone: [facility] Work Phone: Start: 07-14-2022 End: 07-14-[address] Cristal Astudillo Work Phone: [facility]-Laboratory Start: 05-24-2022 End: 05-24-[address] Cristal Astudillo Work Phone: [facility] Work Phone: Start: 05-24-2022 End: 05-24-[address] Crist[facility]stud[facility] Start: 02-03-2022 End: 02-03-[address] Cristal Astudillo Work Phone: [facility] Start: 01-13-2022 End: 01-13-2022 [facility] Start: 09-11-2021 End: 09-11-[address] Cristal [facility]studillo [facility] Start: 09-11-2021 End: 09-11-[address] Cristal Astudillo Work Phone: [facility] Start: 09-01-2021 End: 09-01-[address] Cristal Astudillo Work Phone: [facility]-Ultrasound, [facility] Start: 08-27-2021 End: 08-27-[address] Cristal [facility]studillo [facility] Start: 08-27-2021 End: 08-27-[address] Cristal Astudillo Work Phone: [facility] Start: 07-30-2021 End: 07-31-2021 Evaluation and management of inpatient Dr. Cristal Astudillo Work Phone: [facility]-Medical Surgical 3 Start: 07-22-2021 End: 07-22-[address] Cristal Astudillo Work Phone: [facility]-Laboratory Start: 07-16-[address] Cristal Astudillo Work Phone: [facility] Comment on above: Repair of prolapsed uterus on 06/29/21 Start: 07-16-2021 End: 07-16-2021 Admission to same day surgery center Dr. Cristal Astudillo Work Phone: [facility] Start: 07-16-2021 End: 07-16-[address] Cristal Astudillo Work Phone: [facility] Start: 07-08-2021 End: 07-08-[address] Cristal Astudillo Work Phone: [facility]-Laboratory Start: 06-17-2021 Non-patient / Non-visit Dr. Allyson Astudillo Work Phone: [facility] Procedures Date Procedure Procedure Detail Performing [...] CBC W Auto Differential panel - Blood [facility] Start: 08-19-2023 Procedure [facility] Start: 08-19-2023 Thyroid stimulating hormone measurement [facility] Start: 08-19-2023 [facility] Start: 03-01-2023 Colonoscopy flx dx w/collj spec when pfrmd DIAGNOSTIC COLONOSCOPY [facility] Start: 03-01-2023 Patient discharge [facility] Start: 02-17-2023 Patient referral [facility] Work Phone: Start: 07-30-2021 Anesthesia vaginal hysterectomy incl biopsy ANESTH VAGINAL HYSTERECTOMY [facility] Work Phone: Start: 07-30-2021 Vaginal hysterectomy 250 gm/< w/rpr enterocele VAG HYST W/ENTEROCELE REPAIR [facility] Work Phone: Alanine aminotransfe rase [Enzymatic activity/volume] in Serum or Plasma [facility] Albumin [Mass/volume ] in Serum or Plasma [facility] Alkaline phosphatase [Enzymatic activity/volume] in Serum or Plasma [facility] Anion gap measurement [facility] Aspartate aminotrans ferase [Enzymatic activity/volume] in Serum or Plasma [facility] Bacteria identified in Urine by Culture Urine Culture [facility] Work Phone: Bilirubin, total measurement [facility] BUN/Creatinine ratio [facility] Calcium [Mass/volume ] in Serum or Plasma [facility] Carbon dioxide, tota l [Moles/volume] in Serum or Plasma [facility] CBC W Auto Different ial panel - Blood [facility] Chloride [Moles/volu me] in Serum or Plasma [facility] Colonoscopy [facility] Creatinine [Moles/vo lume] in Serum or Plasma [facility] Erythrocyte mean corpuscular volume determination [facility] Glucose [Mass/volume ] in Serum or Plasma [facility] Hematocrit [Volume Fraction] of Blood [facility] Hemoglobin [Mass/vol ume] in Blood [facility] Hemoglobin A1c/Hemoglobin.total in Blood [facility] Iron and Iron bindin g capacity panel - Serum or Plasma [facility] Leukocytes [#/volume ] in Blood [facility] Lipid 1996 panel - S mario or Plasma [facility] Mean corpuscular hem oglobin concentration determination [facility] Mean corpuscular hem oglobin determination [facility] Measurement of renal function [facility] Measurement of respi ratory function [facility] Neutrophil count [facility] Neutrophil percent differential count [facility] Patient referral [facility] Work Phone: Platelets [#/volume] in Blood [facility] Potassium [Moles/vol ume] in Serum or Plasma [facility] Red blood cell count [facility] Red cell distributio n width determination [facility] Sodium [Moles/volume ] in Serum or Plasma [facility] Thyroid stimulating hormone measurement [facility] Total protein measurement [facility] Urea nitrogen [Mass/ volume] in Serum or Plasma [facility] Vitamin B12 measurement [facility] Vitamin D, 25-hydrox y measurement [facility] Vitamin D, 25-hydrox y measurement [facility] Immunizations Immunization Date Immunization Notes Care Provider Fa [facility] 04-09-2021 Covid (Pfizer) Dr. Cristal luu Work Phone: [facility] 09-04-2020 Covid (Pfizer) Dr. Cristal luu Work Phone: [facility] 08-14-2020 Covid (Pfizer) Dr. Cristal luu Work Phone: [facility] Payers Date Payer Category Payer Self-pay [id number] 2024 Medicare [id number] 2023 Medicare [id number] 2023 Private Health Insurance [facility] [id number] Private Health Insurance [id number] Unknown [id number] 2.16.8 [id number] Unknown [id number] 2.16.8 [id number] Unknown [id number] 2.16.8 [id number] Unknown [id number] 2.16.8 [id number] Unknown [id number] 2.16.8 [id number] Unknown [id number] 2.16.8 [id number] Unknown [id number] 2.16.8 [id number] Unknown [id number] 2.16.8 [id number] Unknown [id number] 2.16.8 [id number] Unknown [id number] 2.16.8 [id number] Unknown [id number] 2.16.8 [id number] Unknown [id number] 2.16.8 [id number] Unknown [id number] 2.16.8 [id number] Unknown [id number] 2.16.8 [id number] Unknown [id number] 2.16.8 [id number] Unknown [id number] 2.16.8 [id number] Social History Date Type Detail Facility Start: 08-27-2021 End: 08-03-2023 Tobacco smoking status NHIS Unknown if ever smoked [facility] Start: 06-19-2018 Non-smoker [facility] Start: 1940 Sex Assigned At Female [facility] Start: 08-22-2024 Tobacco smoking status NHIS Never smoked tobacco (finding) [facility] Start: 08-27-2024 End: 09-12-2024 Sex Female (finding) [facility] NEGATED: Highlighted row [facility] Goals Date Patient Goal Desired Activity /State Functional Status Date Assessment Result Facility 07-31-2021 Functional status Ambulates [facility] Work Phone: Mental Status Date Assessment Result Facility 03-01-2023 Cognitive function Touch/Shaking [facility] Work Phone: 07-31-2021 Cognitive function Level Of Cons ciousness Awake;Alert;Appropriate [facility] Work Phone: 07-30-2021 Cognitive function Voice/Name [facility] Work Phone: Clinical Notes 03-01-2023 to 08-06-2024 Note Date & Type Note Facility 08-06-2024 Evaluation note Diagnosis Onset Date Resolution Essential hypertension chronic [facility] 2024 7:49am Hyperlipidemia chronic July 152024 7:49am Inflammatory polyarthropathy chronic August 06 7:49am Lesion of skin of nose acute [facility] 2024 7:53am Tendinitis of extensor tendon of left hand acute August 23, 2024 7:53am [facility] Work Phone: 1(784) 833-412002-24-2025 Evaluation note* Diagnosis Onset Date Resolution Status Admit Date Essential hypertension chronic [facility] 2024 7:49am Hyperlipidemia chronic July 152024 7:49am Inflammatory polyarthropathy chronic August 06, 2024 7:49am Lesion of skin of nose acute [facility] 2024 7:53am Tendinitis of extensor tendo n of left hand acute August 23, 2024 7:53am Essential hypertension chronic [facility] 2024 9:21am Hyperlipidemia chronic August 9:21am [facility] Work Phone: 1(608) 581-231009-19-2023 Procedure [facility] Onset Date Resolution Status Preop cardiovascular exam ac onofre Essential hypertension chron ic Hyperlipidemia chronic Onychomycosis acute Vitamin D deficiency acute Essential hypertension chron ic Hyperlipidemia chronic [facility] Work Phone: Evaluation note* Diagnosis Onset Date Resolution Status Preop cardiovascular exam ac onofre Essential hypertension chron ic Hyperlipidemia chronic Onychomycosis acute Vitamin D deficiency acute Essential hypertension chron ic Hyperlipidemia chronic Flank pain acute Hematuria acute History of hysterectomy acut e [facility] Work Phone: Evaluation noteNo assessment information available [facility] Work Phone: Evaluation note* Diagnosis Onset Date Resolution Status Onychomycosis acute Vitamin D deficiency acute Essential hypertension chron ic Hyperlipidemia chronic Inflammatory polyarthropathy chronic [facility] Work Phone: Evaluation note* Diagnosis Onset Date Resolution Status Essential hypertension chron ic Hyperlipidemia chronic [facility] Work Phone: Evaluation note* Diagnosis Onset Date Resolution Status Essential hypertension chron ic Hyperlipidemia chronic Dysuria acute Essential hypertension chron ic Hyperlipidemia chronic Inflammatory polyarthropathy chronic [facility] Work Phone: Evaluation note* Diagnosis Onset Date Resolution Status Lesion of skin of nose acute Essential hypertension chron ic Hyperlipidemia chronic Inflammatory polyarthropathy chronic Colon cancer screening acute Encounter to discuss test results acute Positive colorectal cancer s creening using Cologuard test acute [facility] Work Phone: Evaluation note* Diagnosis Onset Date Resolution Status Essential hypertension chron ic Hyperlipidemia chronic Encounter to discuss test results acute Nocturnal leg cramps acute Essential hypertension chron ic Hyperlipidemia chronic [facility] Work Phone: Evaluation note* Diagnosis Onset Date Resolution Status Admit Date Essential hypertension chronic [facility] 2024 7:51am Hyperlipidemia chronic January 7:51am Inflammatory polyarthropathy chronic February 04, 2025 7:51am [facility] Work Phone: History and physical note Author Donnie Fish [facility] March 01, 2023 8:29am Note Date/Time March 01, 2023 8:29am [facility] Medical Records Department [address] [place] [address] History & Physical Exam 03/01/23828 MR#: [id number] Acct: [id number] Name: PHANI DOMÍNGUEZ Rep #[id number] : [id number] 82 From: Donnie adhikari MD PCP: Dr. Cristal Astudillo MD Status:REG [facility] Location: [place] [address] History and Physical Date of Admission: 03/01/23 [...] mg PO DAILY 02/17/23 [History Confirmed 02/24/23] [facility] Medical History (Updated 02/24/23 @ 14:35 by [...] proceed with procedure. Donnie Fish MD Pager: [facility] [address] [place] [address], [address] [place] [address] Office: I have examined the patient and the H&P has been reviewed. There are no clinicalchanges since date of exam. 03/01/23828 <Electronically signed by Donnie Fish MD> Cosigner Signature (if applicable): CC: Dr. Donnie Fish MD; Dr. Cristal Astudillo MD~ Signed [facility] Work Phone: Reason for referral (narrative)No reason for referral [facility] Work Phone: Chief Complaint and Reason for [...] Will Yes July 30 12:18pm Power of Heatset Winder Operator Yes July 30, 2021 12:18pm Advance Directive Response Recorded Date/ Time Living Will Yes July 30 11:18am Power of Heatset Winder Operator Yes July 30, 2021 11:18am Advance Directive Response Recorded Date/ Time Name of Medical Power of Heatset Winder Operator LISSETT DOMÍNGUEZ February 24, 2023 11:25am Living Will Yes February 24, 2023 11:25am Power of Heatset Winder Operator Yes February 11:25am Advance Directive Response Recorded Date/ Time Name of Medical Power of Heatset Winder Operator LISSETT DOMÍNGUEZ February 24, 2023 10:25am Living Will Yes February 24, 2023 10:25am Power of Heatset Winder Operator Yes February 10:25am Advance Directive Response Recorded Date/ Time Living Will Yes February 24, 2023 10:25am Power of Heatset Winder Operator Yes February 10:25am Advance Directive Response Recorded Date/ Time Living Will Yes February 24, 2023 11:25am Power of Heatset Winder Operator Yes February 11:25am Advance Directive Response Recorded Date/ Time Living Will Yes February 24, 2023 11:25am Do you have a Healthcare Power of Heatset Winder Operator? Yes February 24, 2023 11:25am Summary Purpose [...] MD Primary Care Provider Active Sathish Brewster CIGAR HEAD PERFORATOR, CIGAR HEAD PERFORATOR-C Attending Provider, Referring Pro vider Active Dr. Morelia Higgins MD Other Provider Active Team Status: Inactive Member Role Status Dates Dr. Cristal Astudillo MD Primary Care Provider Active Sathish Brewster CIGAR HEAD PERFORATOR, CIGAR HEAD PERFORATOR-C Attending Provider, Referring Pro vider Active Team Status: Inactive Member Role Status Dates Dr. Cristal Astudillo MD Primary Care Provider, Referri ng Provider Active Sathish Brewster CIGAR HEAD PERFORATOR, CIGAR HEAD PERFORATOR-C Attending Provider Active Team Status: Active Member [...] 2024 End: June 22, 2024 Sathish Brewster CIGAR HEAD PERFORATOR, CIGAR HEAD PERFORATOR-C Attending Provider Active S tart: June 22, 2024 End: June 22, 2024 Sathish Brewster CIGAR HEAD PERFORATOR, CIGAR HEAD PERFORATOR-C Referring Provider Active S tart: June 22, [...] section and content) DATE CREATED AUTHOR 02/05/2025 [facility] FOR RECORDS PERTAINING TO PATIENTS WHO ARE [...] BE BASED ON THE PRIMARY CLINICAL RECORDS. [facility]. provides no warranty or guarantee of the accuracy or completeness of information in this document.
== END | disposition home or self-care (01) ==
PROVIDERS: PCP Internal Medicine; Referring Provider Internal Medicine; Visit Provider Internal Medicine
DX: R79.81 Abnormal blood-gas level (principal)
CPT/HCPCS: 94060; 94726; 94729

== ENCOUNTER → 2025-02-22 | Outpatient (CLI) | payer MEDICARE, OTHER, SELFPAY ==
--- NOTE | 2025-02-22 13:18 | CT_ITS ---
PROCEDURE: CHEST WITHOUT CONTRAST 02/22/2025 REASON FOR EXAM: HYPOXEMIA/REDUCED DLCO/MILD RESTRICTIVE ON PFTS. TECHNIQUE: Chest CT without contrast. Coronal and Sagittal reconstruction series were provided. One or more dose reduction techniques were used (e.g., Automated exposure control, adjustment of the mA and/or kV according to patient size, use of iterative reconstruction technique RADIATION DOSE SUMMARY: CTDlvol: 5.38 mGy DLP: 179.02 mGycm COMPARISON: None FINDINGS: Lung windows show the lungs to be normally expanded. There is no organized infiltrate or effusion, no suspicious noncalcified mass or nodule, fibrotic scarring noted in both lower lung whaley. Soft tissue windows show a normal-appearing thyroid gland. No suspicious axillary, mediastinal or perihilar adenopathy. There are calcified coronary vessels. The thoracic aorta tapers normally. Limited cuts through the upper abdomen do not show a suspicious abnormality. Bony structures show degenerative change CT/Chest without Contrast IMPRESSION: Coronary artery calcification (CAC) is is present No acute pulmonary process Fibrotic scarring in the lung bases Degenerative bony changes No suspicious adenopathy Reading Location: [id number]
== END | disposition home or self-care (01) ==
LOC: CT 13:16
PROVIDERS: PCP Internal Medicine; Referring Provider Internal Medicine; Visit Provider Internal Medicine
DX: J98.4 Other disorders of lung (principal); R79.81 Abnormal blood-gas level
CPT/HCPCS: 71250

== ENCOUNTER → 2025-03-14 | Outpatient (CLI) | payer MEDICARE, OTHER, SELFPAY ==
[2025-03-14 08:31] VITALS: PULSE 73; PULSE 79; PULSE 82; PULSE 84; PULSE 90; PULSE 91; PULSE 92; PULSE 96; O2SAT 94; O2SAT 95; O2SAT 96; O2SAT 98; O2SAT 99
--- NOTE | 2025-03-15 11:21 | WT_ITS ---
PSN 6 Minute Walk Test 6 Minute Walk Test 6 Minute Walk Test: 6 Minute Walk Test PSN:6-Minute Walk Test Start: 03/14/25 08:31 Freq: Status: Active Protocol: [id number] Document 03/14/25 08:31 AE (Rec: 03/14/25 08:36 [facility] [id number]) 6 Minute Walk Test Date Performed 03/14/25 Time Performed 08:15 Height 5 ft 2 in Weight: 118 lb Weight in Pounds 118.[address]: Wilda Assistive device None used: Pre-test Oxygen Delivery Room Air Method Pulse Ox (%) 99 Pulse Rate (60-100 73 beats/min) Dyspnea Ruba Scale ( 0 0-10) Exertion Ruba Scale 6 (6-20) 1st minute Oxygen Delivery Room Air Method Pulse Ox (%) 96 Pulse Rate (60-100 82 beats/min) 2nd minute Oxygen Delivery Room Air Method Pulse Ox (%) 96 Pulse Rate (60-100 84 beats/min) 3rd minute Oxygen Delivery Room Air Method Pulse Ox (%) 95 Pulse Rate (60-100 91 beats/min) 4th minute Oxygen Delivery Room Air Method Pulse Ox (%) 94 Pulse Rate (60-100 90 beats/min) 5th minute Oxygen Delivery Room Air Method Pulse Ox (%) 94 Pulse Rate (60-100 96 beats/min) 6th minute Oxygen Delivery Room Air Method Pulse Ox (%) 94 Pulse Rate (60-100 92 beats/min) Dyspnea Ruba Scale ( 0 0-10) Exertion Ruba Scale 8 (6-20) Post-test Oxygen Delivery Room Air Method Pulse Ox (%) 98 Pulse Rate (60-100 79 beats/min) Full Laps Walked 21 Partial Lap, Number 0 of Tiles Walked Total Distance 1239 Walked (ft) Interpretation Interpretation: The patient ambulated 1239 feet over the course of 6 minutes beginning on room air without assistive devices. Pretesting oxygen saturation was noted to be 99% on room air. With ambulation, the jassi oxygen saturation was 94%. This represents a significant exertional oxygen desaturation, consistent with a pulmonary limitation to exercise tolerance. Recommendations Recommendations: There is no indication for the use of supplemental oxygen at this time.
== END | disposition home or self-care (01) ==
PROVIDERS: PCP Internal Medicine; Referring Provider Internal Medicine; Visit Provider Internal Medicine
DX: R06.09 Other forms of dyspnea (principal); J98.4 Other disorders of lung; R79.81 Abnormal blood-gas level; Z79.631 Long term (current) use of antimetabolite agent
CPT/HCPCS: 94618

== ENCOUNTER → 2025-03-26 | Outpatient (CLI) | payer MEDICARE, OTHER, SELFPAY ==
[2025-03-26 07:41] LABS: AST(SGOT) 19 U/L (<=31); Alanine Aminotransfer ALT/SGPT 17 U/L (<=34); Albumin, Serum 3.9 g/dL (3.4-4.8); Alkaline Phosphatase 83 U/L (35-104); Anion Gap 9 (5-15); BUN 22 mg/dL (4-19); BUN/Creat Ratio 22.1 RATIO (10-20); CRP 3.30 mg/L (0.0-3.0); Calcium,Total 9.4 mg/dL (7.6-11.0); Carbon Dioxide 27.6 mmol/L (21.0-32.0); Chloride 103 mmol/L (98-108); Globulin 2.9 g/dL (2.2-4.2); Glucose 108 mg/dL (70-99); Magnesium 2.2 mg/dL (1.5-2.2); Potassium 4.3 mmol/L (3.3-5.1)
[2025-03-26 07:59] LABS: Hematocrit 40.0 % (37-47); Hemoglobin 12.9 g/dL (12.0-15.0); Immature Granulocytes Count 0.050 X10^3/uL (0.0-0.0); Mean Corp Hgb Conc 32.3 g/dL (32-36); Mean Corpuscular Volume 93.2 fL (81-99); Mean Platelet Vol. 10.9 fl (6.2-12.0); NRBC Flagged by Analyzer 0 % (0-5); Platelet Count 362 K/mm3 (150-450); RBC Distribution Width CV 12.6 % (11.6-14.6); RBC Distribution Width SD 42.8 fl (35.1-43.9); Red Blood Count 4.29 M/mm3 (4.2-5.4); White Blood Count 8.9 K/mm3 (4.4-11.0)
== END | disposition home or self-care (01) ==
LOC: LAB 06:02
PROVIDERS: PCP Internal Medicine; Referring Provider Internal Medicine Rheumatology; Visit Provider Internal Medicine Rheumatology
DX: M06.00 Rheumatoid arthritis without rheumatoid factor, unspecified site (principal); M18.0 Bilateral primary osteoarthritis of first carpometacarpal joints; Q66.70 Congenital pes cavus, unspecified foot; Z79.899 Other long term (current) drug therapy
CPT/HCPCS: 36415; 80053; 83735; 85025; 85652; 86140